=== PATIENT | female | born 1945 | race Caucasian/White ===

== ENCOUNTER 2016-06-23 08:44 | Emergency (ER) | payer MEDICARE, OTHER ==
--- NOTE | 2016-06-23 09:50 | ER Document Report ---
ED Extremity Problem, Lower - General Chief Complaint: Foot Pain Stated Complaint: FOOT PAIN Notes: Patient is here primarily complaining of pain in her right foot and ankle for 2 days. She recalls no unusual activity or injury to that foot and ankle and is not had this problem previously. Patient is morbidly obese, but is usually able to ambulate with her cane, but cannot do so now because the pain in her ankle and foot. Patient has chronic denuded wound of the entire left lower leg anteriorly which presents bandaged from the wound center from one week ago. She says that she attends the wound care clinic every Tuesday, but was given this Tuesday off. She has a home health nurse that comes in to check on her Tuesday, Tuesday, and Tuesday. She was last there this Tuesday, 2 days ago. Patient has been on Cipro, she thinks for 10 days, for the wound on her left lower leg and finished taking it about 2 or 3 days ago. Patient does say that she has a vaginal yeast infection. PMH: Patient denies any cough or cold or chest congestion. Has chronic shortness of breath, but nothing new or different today. No nausea or vomiting or diarrhea. No chest pains. No abdominal pains. History of Hypertension, but she forgets to take her medications sometimes. TRAVEL OUTSIDE OF THE [place] IN LAST 30 DAYS: No - Related Data Allergies/Adverse Reactions: adhesive [Adhesive] Allergy (Verified 06/23/16 09:02) No Known Drug Allergies Allergy (Verified 06/23/16 10:24) Past Medical History - Social History Smoking Status: Never Smoker Chew tobacco use (# tins/day): No Frequency of alcohol use: None Drug Abuse: None Family History: Reviewed & Not Pertinent Patient has suicidal ideation: No Patient has homicidal ideation: No - Past Medical History Cardiac Medical History: Reports: Hx Hypertension, Hx Peripheral Vascular Disease Endocrine Medical History: Reports: Hx Diabetes Mellitus Type 2 Musculoskeltal Medical History: Reports Hx Arthritis Past Surgical History: Reports: Hx Orthopedic Surgery - Immunizations Immunizations up to date: No Hx Diphtheria, Pertussis, Tetanus Vaccination: Yes Review of Systems - Review of Systems Notes: REVIEW OF SYSTEMS: CONSTITUTIONAL : Denies fever. EENT: Denies eye, ear, nose or mouth or throat pain or other symptoms. CARDIOVASCULAR: Denies chest pain. RESPIRATORY: Denies cough, chest congestion, or shortness of breath. GASTROINTESTINAL: Denies abdominal pain or nausea, vomiting, or diarrhea. GENITOURINARY: Denies difficulty or painful urinating, urinary frequency, blood in urine. MUSCULOSKELETAL: Denies back or neck pain. See history of present illness. SKIN: Complains of a vaginal yeast infection. NEUROLOGICAL: Denies LOC or altered mental status. Denies headache. Denies sensory loss or motor deficits. ALL OTHER SYSTEMS REVIEWED AND NEGATIVE. Physical Exam - Vital signs Vitals: Temp Pulse Resp BP Pulse Ox 97.7 F 81 20 170/82 H 94 06/23/16 08:58 06/23/16 08:58 06/23/16 08:58 06/23/16 08:58 06/23/16 08:58 Interpretation: Normal, Hypertensive - Mild - Notes Notes: PHYSICAL EXAMINATION: GENERAL: Well-appearing, in no acute distress. Blood pressure slightly increased. Patient says she forgets to take her medications sometimes. Afebrile. Weighs 199 kg. HEAD: Atraumatic, normocephalic. NECK: Normal range of motion, supple. LUNGS: Breath sounds clear and equal bilaterally. HEART: Regular rate and rhythm without murmurs. ABDOMEN: Soft, nontender. No guarding or rebound. Visualize the perineum and cannot tell if there is a yeast infection or not. Patient has been putting some kind of cream and powder combination on the area. BACK: No tenderness throughout entire back. EXTREMITIES: Normal range of motion without pain. Both lower legs are pink, although the left lower leg is in a bandage and it had to be removed to assess the wound there. Patient has significant tenderness when compressing her right ankle and the proximal right foot. They are warm to the touch but do not look like a significant infectious process. NEUROLOGICAL: Normal speech, unable to walk. Normal sensory, motor, and reflex exams. Awake, alert, and oriented x3. Cranial nerves normal. PSYCH: Normal mood, normal affect. SKIN: Warm, dry, no rashes. Course - Re-evaluation Re-evalutation: I spoke with Natalie at the wound care center. She says the patient has a Pseudomonas infection in the left lower leg and that's why she was on Cipro. She says the patient's legs are both pink in color normally. They can see patient in the clinic Tuesday (Dr. Mcmillan) if the patient will call in the morning and schedule an appointment. - Vital Signs Vital signs: Temp Pulse Resp BP Pulse Ox 97.5 F 79 20 167/61 H 98 06/23/16 12:28 06/23/16 12:28 06/23/16 12:28 06/23/16 12:28 06/23/16 12:28 - Laboratory Result Diagrams: 06/23/16 10:10 06/23/16 10:10 Laboratory results interpreted by me: 06/23/16 06/23/16 10:10 10:10 RDW 14.4 H Est GFR (Non-Af Amer) 52 L Glucose 140 H Uric Acid 9.4 H - Diagnostic Test Radiology results interpreted by me: 06/23/16 12:32 X-rays of the right foot and ankle reveal a healed fracture of the phalanx of the fifth toe. Otherwise no significant findings. Discharge - Discharge Clinical Impression: Gout attack Qualifiers: Gout site: ankle Gout etiology: unspecified cause Laterality: right Qualified Code(s): M10.9 - Gout, unspecified Condition: Stable Disposition: HOME, SELF-CARE Additional Instructions: Gout You have been diagnosed as having gout. Gout is a problem caused by an excess of uric acid, a natural chemical found in the body. The cause of this disease is unknown. Gout arthritis occurs when crystals of uric acid form in the joints. The big toe is the most common joint involved, but any joint can become affected. Persons with gout may also form uric acid kidney stones, resulting in flank pain and blood in the urine. Nodules of uric acid may form under the skin. The first step of treatment is to decrease the inflammation in the joint with antiinflammatory medication. Medication to lower the uric acid level in the blood may then be prescribed. This medication should be taken regularly, as any sudden change in dosage may provoke an attack of gout. Some foods, such as red meat, can provoke an attack in some gout sufferers. Call the doctor if new symptoms arise, or if you do not improve. Allopurinol Allopurinol (Zyloprim) is used to prevent gout and uric acid kidney stones. Allopurinol lowers uric acid in your body. It's most effective if taken daily. It's not useful to treat an attack of gout once it begins! There are usually no side effects from allopurinol. If you have any kidney disease, be sure your doctor knows about it before starting allopurinol ( you may need a lower dose). Stop the allopurinol and call your doctor if you develop severe itching, rash, unexplained blisters, unexplained bruises, jaundice (yellow skin), or swelling. STEROID MEDICATION: You have been given a medicine of the cortisone/steroid class. This medication is used to control inflammation or allergy. It is usually only given for a short period of time, until the acute process subsides. There are usually no side effects from short-term use of cortisone-like medications. Some persons feel an increased sense of well-being and are not sleepy at bedtime. Long-term use of cortisone medications is best avoided, unless required for a severe condition. If your condition does not remit, or relapses after the course of corticosteroid medication, you should consult your physician. Take your gabapentin and Percocets for pain. The [facility] Center says that Dr. Mcmillan will be there Tuesday and can see you in follow-up. You need to call the Wound Center today and schedule an appointment time for Dr. Mcmillan to see you Tuesday. FOLLOW-UP CARE: If you have been referred to a physician for follow-up care, call the physician s office for an appointment as you were instructed or within the next two days. If you experience worsening or a significant change in your symptoms, notify the physician immediately or return to the Emergency Department at any time for re-evaluation. You need to see her primary care physician in the next month to get a renewal of the allopurinol medication for the gout. Prescriptions: Allopurinol [Zyloprim 100 mg Tablet] 100 mg PO DAILY #30 tablet Prednisone [Deltasone 20 mg Tablet] 3 tab PO DAILY 5 Days Referrals: JULIO AVALOS MD [Primary Care Provider] - Follow up as needed
[2016-06-23 10:28] LABS: ABSOLUTE BASOPHILS # (AUTO) 0.1 10^3/uL (0.0-0.2); ABSOLUTE EOSINOPHILS # (AUTO) 0.2 10^3/uL (0.0-0.6); ABSOLUTE MONOCYTES (AUTO) 0.6 10^3/uL (0.1-1.4); ABSOLUTE NEUT (AUTO) 5.4 10^3/uL (1.7-8.2); BASOPHILS % (AUTO) 0.7 % (0-2); EOSINOPHILS % (AUTO) 2.2 % (0-6); HEMATOCRIT 37.5 % (36.0-47.0); HEMOGLOBIN 12.4 g/dL (12.0-15.5); HGB HCT DIFFERENCE -0.3; LYMPHOCYTES % (AUTO) 32.5 % (13-45); MEAN CORPUSCULAR HEMOGLOBIN 27.1 pg (27.0-33.4); MEAN CORPUSCULAR HGB CONC 33.1 g/dL (32.0-36.0); MEAN CORPUSCULAR VOLUME 82 fl (80-97); MONOCYTES % (AUTO) 6.2 % (3-13); RED BLOOD COUNT 4.57 10^6/uL (3.72-5.28); RED CELL DISTRIBUTION WIDTH 14.4 % (11.5-14.0); SEGMENTED NEUTROPHILS % (AUTO) 58.4 % (42-78); WHITE BLOOD COUNT 9.2 10^3/uL (4.0-10.5)
[2016-06-23 10:43] LABS: ALANINE AMINOTRANSFERASE 21 U/L (9-52); ALBUMIN 3.8 g/dL (3.5-5.0); ALKALINE PHOSPHATASE 88 U/L (38-126); ANION GAP 11 (5-19); ASPARTATE AMINO TRANSFERASE 16 U/L (14-36); BILIRUBIN,TOTAL 0.4 mg/dL (0.2-1.3); BLOOD UREA NITROGEN 20 mg/dL (7-20); CALCIUM 9.2 mg/dL (8.4-10.2); CARBON DIOXIDE 27 mmol/L (22-30); CHLORIDE 102 mmol/L (98-107); CREATININE RESULT 1.05 mg/dL (0.52-1.25); GLUCOSE 140 mg/dL (75-110); POTASSIUM 4.6 mmol/L (3.6-5.0); SODIUM 139.8 mmol/L (137-145); TOTAL PROTEIN 7.4 g/dL (6.3-8.2); URIC ACID 9.4 mg/dL (2.5-7.5)
[2016-06-23] MEDS ORDERED: ALLOPURINOL 100 MG TABLET PO ONE (12:04)
[2016-06-23] MEDS ORDERED: PREDNISONE 20 MG TABLET PO ONE (12:05)
[2016-06-23 12:30] VITALS: BP 167/61
== END 2016-06-23 12:40 | disposition home or self-care (01) ==
LOC: ER 08:44
DX: M10.9 Gout, unspecified (principal); M79.671 Pain in right foot; E66.01 Morbid (severe) obesity due to excess calories; I10 Essential (primary) hypertension; E11.9 Type 2 diabetes mellitus without complications
CPT/HCPCS: 99283; 36415; 84550; 85025; 80053; 73610; 73630; A9270 ×2; J7512

== ENCOUNTER 2016-08-11 13:03 | Inpatient (IN) | payer MEDICARE, OTHER ==
[2016-08-11] MEDS ORDERED: VANCOMYCIN HCL 0 MG in DEXTROSE 5%-WATER 250 ML IV NR (18:00)
[2016-08-11] MEDS ORDERED: MORPHINE SULFATE 10 MG/ML INJ ONE (18:00)
[2016-08-11] MEDS ORDERED: HYDRALAZINE HCL INJ/PF 20 MG/1 ML SDV IV PRN (18:11)
[2016-08-11] MEDS: GABAPENTIN 300 MG CAPSULE PO PRN (18:59)
[2016-08-11 19:07] LABS: ABSOLUTE BASOPHILS # (AUTO) 0.1 10^3/uL (0.0-0.2); ABSOLUTE EOSINOPHILS # (AUTO) 0.3 10^3/uL (0.0-0.6); ABSOLUTE LYMPHOCYTES (AUTO) 4.1 10^3/uL (0.5-4.7); ABSOLUTE MONOCYTES (AUTO) 0.8 10^3/uL (0.1-1.4); ABSOLUTE NEUT (AUTO) 5.7 10^3/uL (1.7-8.2); BASOPHILS % (AUTO) 0.8 % (0-2); EOSINOPHILS % (AUTO) 2.5 % (0-6); HEMATOCRIT 35.1 % (36.0-47.0); HEMOGLOBIN 11.7 g/dL (12.0-15.5); LYMPHOCYTES % (AUTO) 37.4 % (13-45); MEAN CORPUSCULAR HEMOGLOBIN 26.8 pg (27.0-33.4); MEAN CORPUSCULAR HGB CONC 33.3 g/dL (32.0-36.0); MEAN CORPUSCULAR VOLUME 81 fl (80-97); MONOCYTES % (AUTO) 7.5 % (3-13); RED BLOOD COUNT 4.36 10^6/uL (3.72-5.28); RED CELL DISTRIBUTION WIDTH 15.1 % (11.5-14.0); SEGMENTED NEUTROPHILS % (AUTO) 51.8 % (42-78); WHITE BLOOD COUNT 11.1 10^3/uL (4.0-10.5)
[2016-08-11 19:21] LABS: ANION GAP 13 (5-19); BLOOD UREA NITROGEN 21 mg/dL (7-20); CALCIUM 9.3 mg/dL (8.4-10.2); CARBON DIOXIDE 25 mmol/L (22-30); CHLORIDE 105 mmol/L (98-107); GLUCOSE 175 mg/dL (75-110); POTASSIUM 4.2 mmol/L (3.6-5.0); SODIUM 143.2 mmol/L (137-145)
--- NOTE | 2016-08-11 20:23 | CONSULTATION REPORT E ---
Consultation Report NAME: SERINA LEE : 1945 AGE: 70Y DATE: 08/11/2016 ROOM: 406 A TO: SHANNA BRUNO M.D. FROM: Requesting Physician REASON FOR CONSULTATION: The patient with large full thickness skin ulceration along the left lower leg of the ankle and just above the ankle with redness surrounding it, indicating cellulitis. HISTORY OF PRESENT ILLNESS: This is a 70-year-old female who has been treated at the [facility] for chronic ulceration of the left lower leg for the past 6 weeks. Today there is more redness and pain and therefore the patient went to the emergency room, subsequently admitted for cellulitis and ulceration of the left lower leg. Unable to obtain a detailed H and P, because the patient has severe pain along the left lower leg. PHYSICAL EXAMINATION: Left lower leg has a large full thickness skin ulceration, roughly measuring 10 inches long by about 6-7 inches wide, almost encircling the whole left ankle. The left foot is warm. There is some redness around the ulcer and towards the area of the knee. The patient is a borderline diabetic. As far as wound care is concerned I would suggest placement of Silvadene cream over the wound and wrap over Adaptic twice a day and continue with the IV antibiotic that was ordered, I believe it is Zosyn. We will follow the patient with you. DICTATING PHYSICIAN: SHANNA BRUNO M.D. [id number] PHY#: [id number] ID: [id number] JOB#: [id number] ACCT: [id number] cc:SHANNA BRUNO M.D. >
[2016-08-11] MEDS ORDERED: MORPHINE SULFATE 10 MG/ML INJ IV ONE (20:30)
--- NOTE | 2016-08-11 20:33 | CONSULTATION REPORT E ---
Consultation Report NAME: SERINA LEE : 1945 AGE: 70Y DATE: 406 A TO: SHANNA BRUNO M.D. FROM: Requesting Physician REASON FOR CONSULTATION: Patient with cellulitis of the left anterior lower leg with large full-thickness ulceration. HISTORY OF PRESENT ILLNESS: This is a 70-year-old female who apparently has been going to the wound care center and home healthcare *------* of the left lower leg ulceration and now with cellulitis. Today, the redness and pain got worse and the patient went to the emergency room and subsequently admitted for cellulitis of the left lower leg. PAST HISTORY: History of sleep apnea, musculoskeletal history of arthritis, history of fractures, osteoarthritis, fracture of tailbone and broken toe. GI history of gastroesophageal reflux disease. Genitourinary: History of kidney stones, urinary tract infection, urinary incontinence. Endocrine: History of diabetes mellitus type 2, but does not take any medications at this time. Cardiovascular history: Hypertension, murmur, and varicose veins. Respiratory history: History of bronchitis and chronic obstructive pulmonary disease. History of pneumonia. PAST SURGICAL HISTORY: Bilateral shoulder surgery, arthroscopy of shoulders bilaterally, arthroscopy of knees bilaterally, bilateral trigger thumb surgery, carpal tunnel both hands. HOME MEDICATIONS: Tramadol, gabapentin, vitamin D2. ALLERGIES: Adhesive. No known drug allergies. FAMILY HISTORY: Noncontributory. REVIEW OF SYSTEMS: As in HPI. Complaining of a lot of pains in the left leg. Patient has BMI of 63. She uses 2 canes to ambulate. The rest of the systems are quite unremarkable. PHYSICAL EXAMINATION: This is a 70-year-old female complaining of a lot of pains in the left lower leg. Weight is *------* kg and about 5 feet 5 inches tall. Neck is supple. Lungs are clear. Heart regular sinus rhythm. Abdomen soft, nontender. Extremities: She has large full-thickness skin ulceration of the left lower leg, roughly about 10 inches long x about 6-7 inches wide with a lot of erythema around it. The left foot is warm and quite difficult to palpate ankle pulses. IMPRESSION: 1. Cellulitis of the left lower leg. 2. Large full-thickness skin ulceration of the left lower leg. RECOMMENDATIONS: 1. Continue intravenous antibiotics. 2. Apply Silvadene dressing every 12 hours. Silvadene to be wrapped with Adaptic and ABD and wrapped with Ina. DICTATING PHYSICIAN: SHANNA BRUNO M.D. [id number] PHY#: [id number] ID: [id number] JOB#: [id number] ACCT: [id number] cc:SHANNA BRUNO M.D. >
[2016-08-11] MEDS ORDERED: ENOXAPARIN SODIUM INJ 40 MG/0.4 ML DISP.SYRIN SUBCUT ONE (21:00)
[2016-08-11] MEDS ORDERED: SILVER SULFADIAZINE 1% CREAM 400 GM TP ONE (21:00)
[2016-08-11] MEDS: TRAMADOL HCL 50 MG TABLET PO PRN (21:31)
[2016-08-11] MEDS: PIPERACILLIN SODIUM/TAZOBACTAM 3.375 GM in NORMAL SALINE 100 ML IV SCH (21:31)
[2016-08-11] MEDS: VANCOMYCIN HCL 1,500 MG in DEXTROSE 5%-WATER 250 ML IV SCH (21:56)
[2016-08-12] MEDS: PIPERACILLIN SODIUM/TAZOBACTAM 3.375 GM in NORMAL SALINE 100 ML IV SCH ×4 (03:33→22:32)
[2016-08-12 05:21] LABS: Direct HDL 31 mg/dL (>40); TRIGLYCERIDES 261 mg/dL (<150)
[2016-08-12 05:31] LABS: DIRECT LDL 100 mg/dL (<100)
[2016-08-12 05:38] LABS: VLDL CHOLESTEROL 52.2 mg/dL (10-31)
[2016-08-12] MEDS: MORPHINE SULFATE 10 MG/ML INJ IV PRN ×3 (06:31→20:52)
[2016-08-12] MEDS: ENOXAPARIN SODIUM INJ 40 MG/0.4 ML DISP.SYRIN SUBCUT SCH (10:58)
--- NOTE | 2016-08-12 11:37 | PDOC PROGRESS REPORT ---
Subjective Progress Note for:: 08/12/16 Subjective:: Still having leg pain. Physical Exam Vital Signs: Temp Pulse Resp BP Pulse Ox 97.4 F 75 22 H 150/85 H 96 08/12/16 09:00 08/12/16 09:00 08/12/16 09:00 08/12/16 09:00 08/12/16 09:00 Intake & Output 08/11/16 08/12/16 08/13/16 06:59 06:59 06:59 Intake Total 900 Balance 900 Weight 171.7 kg General appearance: PRESENT: no acute distress, cooperative Extremities exam: PRESENT: other - Anterior lower leg with diffuse ulceration bright red with surrounding erythema as well. No necrotic debris to debride at this time. Results Laboratory Results: 08/11/16 18:56 08/11/16 18:56 08/11/16 08/11/16 08/12/16 18:56 18:56 04:12 WBC 11.1 H RBC 4.36 Hgb 11.7 L Hct 35.1 L MCV 81 MCH 26.8 L MCHC 33.3 RDW 15.1 H Plt Count 264 Seg Neutrophils % 51.8 Lymphocytes % 37.4 Monocytes % 7.5 Eosinophils % 2.5 Basophils % 0.8 Absolute Neutrophils 5.7 Absolute Lymphocytes 4.1 Absolute Monocytes 0.8 Absolute Eosinophils 0.3 Absolute Basophils 0.1 Sodium 143.2 Potassium 4.2 Chloride 105 Carbon Dioxide 25 Anion Gap 13 BUN 21 H Creatinine 1.30 H Est GFR ( Amer) 49 L Est GFR (Non-Af Amer) 40 L Glucose 175 H Calcium 9.3 Triglycerides 261 H Cholesterol 197.10 LDL Cholesterol Direct 100 VLDL Cholesterol 52.2 H HDL Cholesterol 31 L TSH 08/12/16 04:12 WBC RBC Hgb Hct MCV MCH MCHC RDW Plt Count Seg Neutrophils % Lymphocytes % Monocytes % Eosinophils % Basophils % Absolute Neutrophils Absolute Lymphocytes Absolute Monocytes Absolute Eosinophils Absolute Basophils Sodium Potassium Chloride Carbon Dioxide Anion Gap BUN Creatinine Est GFR ( Amer) Est GFR (Non-Af Amer) Glucose Calcium Triglycerides Cholesterol LDL Cholesterol Direct VLDL Cholesterol HDL Cholesterol TSH 3.73 Impressions: Chest X-Ray 08/11/16 17:48 IMPRESSION: HEART ENLARGED WITHOUT FAILURE. NO OTHER SIGNIFICANT RADIOGRAPHIC FINDING IN THE CHEST. Assessment & Plan - Diagnosis (1) Venous stasis ulcer Is this a current diagnosis for this admission?: YesPlan: Continue local wound care and IV antibiotics. Need to elevate the leg higher. Have discussed with nursing staff concerning elevation.
[2016-08-12] MEDS: SILVER SULFADIAZINE 1% CREAM 400 GM TP SCH ×2 (12:12→20:51)
[2016-08-12] MEDS ORDERED: MORPHINE SULFATE 10 MG/ML INJ IV ONE (13:50)
--- NOTE | 2016-08-12 14:23 | EKG REPORT ---
SEVERITY:- BORDERLINE ECG - SINUS RHYTHM BORDERLINE LEFT AXIS DEVIATION BORDERLINE R WAVE PROGRESSION, ANTERIOR LEADS : Confirmed by: Grazyna Herrera 12-Aug-2016 14:22:41
--- NOTE | 2016-08-12 15:14 | PDOC H&P ---
History of Present Illness Admission Date/PCP: 08/11/16 15:12 JULIO AVALOS MD Patient complains of: Redness drainage both lower extremities History of Present Illness: SERINA LEE is a 70 year old female With a known history of borderline diabetes, obesity Was sent from the wound care clinic for direct admission of cellulitis lower extremities Patient stated that for the past months she had increased redness and drainage both legs She was in extreme pain Past Medical History Cardiac Medical History: Reports: Hypertension, Peripheral Vascular Disease Endocrine Medical History: Reports: Diabetes Mellitus Type 2 Musculoskeltal Medical History: Reports: Arthritis Psychiatric Medical History: Reports: Depression Past Surgical History Past Surgical History: Reports: Orthopedic Surgery Social History Smoking Status: Never Smoker Frequency of Alcohol Use: Rare Hx Recreational Drug Use: No Drugs: None Hx Prescription Drug Abuse: No - Advance Directive Resuscitation Status: Full Code Surrogate healthcare decision maker:: fam [place] Family History Family History: CAD, Malignancy Parental Family History Reviewed: Yes Children Family History Reviewed: Yes Sibling(s) Family History Reviewed.: Yes Medication/Allergy Home Medications: Ergocalciferol (Vitamin D2) [Vitamin D2] 50,000 unit PO MO 08/11/16 Gabapentin [Neurontin 300 mg Capsule] 300 mg PO Q8HP PRN 08/11/16 Tramadol HCl [Ultram 50 mg Tablet] 50 mg PO TID PRN 08/11/16 Allergies/Adverse Reactions: adhesive [Adhesive] Allergy (Verified 06/23/16 09:02) No Known Drug Allergies Allergy (Verified 06/23/16 10:24) Review of Systems Constitutional: ABSENT: chills, fever(s), headache(s), weight gain, weight loss Eyes: ABSENT: visual disturbances Ears: ABSENT: hearing changes Cardiovascular: ABSENT: chest pain, dyspnea on exertion, edema, orthropnea, palpitations Respiratory: ABSENT: cough, hemoptysis Gastrointestinal: ABSENT: abdominal pain, constipation, diarrhea, hematemesis, hematochezia, nausea, vomiting Genitourinary: ABSENT: dysuria, hematuria Musculoskeletal: ABSENT: joint swelling Integumentary: PRESENT: erythema, wounds - Superficial ulcerations both lower extremities almost like a second-degree burn With drainage Redness of the skin shins extending to the inner thighs, other Neurological: ABSENT: abnormal gait, abnormal speech, confusion, dizziness, focal weakness, syncope Psychiatric: ABSENT: anxiety, depression, homidical ideation, suicidal ideation Endocrine: ABSENT: cold intolerance, heat intolerance, polydipsia, polyuria Hematologic/Lymphatic: ABSENT: easy bleeding, easy bruising Physical Exam Vital Signs: Temp Pulse Resp BP Pulse Ox 97.4 F 69 22 H 143/73 H 97 08/12/16 13:00 08/12/16 13:00 08/12/16 13:00 08/12/16 13:00 08/12/16 13:00 Intake & Output 08/11/16 08/12/16 08/13/16 00:59 00:59 00:59 Intake Total 900 Balance 900 Weight 172.6 kg 171.7 kg General appearance: PRESENT: mild distress, morbidly obese Head exam: PRESENT: atraumatic, normocephalic Eye exam: PRESENT: conjunctiva pink, EOMI, PERRLA. ABSENT: scleral icterus Neck exam: ABSENT: carotid bruit, JVD, lymphadenopathy, thyromegaly Respiratory exam: PRESENT: clear to auscultation kurt. ABSENT: rales, rhonchi, wheezes Cardiovascular exam: PRESENT: RRR. ABSENT: diastolic murmur, rubs, systolic murmur GI/Abdominal exam: PRESENT: normal bowel sounds, soft, other - Obese. ABSENT: distended, guarding, mass, organolmegaly, rebound, tenderness Extremities exam: PRESENT: +2 edema, other - Both lower extremities are extremely edematous The shins are red and swollen There is a superficial ulceration with drainage over the legs With second-degree burn-like ulcer beginning the dermis without coverage Redness extends to the inner thigh is Musculoskeletal exam: PRESENT: ambulatory Neurological exam: PRESENT: alert - *And on palpation, awake, oriented to person , oriented to place, oriented to time, oriented to situation, CN II-XII grossly intact. ABSENT: motor sensory deficit Skin exam: PRESENT: other - see extremities Results Laboratory Results: 08/11/16 18:56 08/11/16 18:56 08/11/16 08/11/16 08/12/16 18:56 18:56 04:12 WBC 11.1 H RBC 4.36 Hgb 11.7 L Hct 35.1 L MCV 81 MCH 26.8 L MCHC 33.3 RDW 15.1 H Plt Count 264 Seg Neutrophils % 51.8 Lymphocytes % 37.4 Monocytes % 7.5 Eosinophils % 2.5 Basophils % 0.8 Absolute Neutrophils 5.7 Absolute Lymphocytes 4.1 Absolute Monocytes 0.8 Absolute Eosinophils 0.3 Absolute Basophils 0.1 Sodium 143.2 Potassium 4.2 Chloride 105 Carbon Dioxide 25 Anion Gap 13 BUN 21 H Creatinine 1.30 H Est GFR ( Amer) 49 L Est GFR (Non-Af Amer) 40 L Glucose 175 H Calcium 9.3 Triglycerides 261 H Cholesterol 197.10 LDL Cholesterol Direct 100 VLDL Cholesterol 52.2 H HDL Cholesterol 31 L TSH 08/12/16 04:12 WBC RBC Hgb Hct MCV MCH MCHC RDW Plt Count Seg Neutrophils % Lymphocytes % Monocytes % Eosinophils % Basophils % Absolute Neutrophils Absolute Lymphocytes Absolute Monocytes Absolute Eosinophils Absolute Basophils Sodium Potassium Chloride Carbon Dioxide Anion Gap BUN Creatinine Est GFR ( Amer) Est GFR (Non-Af Amer) Glucose Calcium Triglycerides Cholesterol LDL Cholesterol Direct VLDL Cholesterol HDL Cholesterol TSH 3.73 Impressions: Chest X-Ray 08/11/16 17:48 IMPRESSION: HEART ENLARGED WITHOUT FAILURE. NO OTHER SIGNIFICANT RADIOGRAPHIC FINDING IN THE CHEST. Assessment & Plan - Diagnosis (2) Cellulitis of lower extremity Qualifiers: Laterality: unspecified laterality Qualified Code(s): L03.119 - Cellulitis of unspecified part of limb Is this a current diagnosis for this admission?: YesPlan: we will treat with Zosyn and vancomycin Surgical consult will be obtained - Time Time Spent: 50 to 70 Minutes
--- NOTE | 2016-08-12 16:30 | PDOC PROGRESS REPORT ---
Subjective Progress Note for:: 08/12/16 Subjective:: Patient is a lot more comfortable today the pain is a lot less The wounds of the lower extremities are still draining The ulcers are now covered with Silvadene cream; she has no fever no chills Physical Exam Vital Signs: Temp Pulse Resp BP Pulse Ox 97.4 F 69 22 H 143/73 H 97 08/12/16 13:00 08/12/16 13:00 08/12/16 13:00 08/12/16 13:00 08/12/16 13:00 Intake & Output 08/11/16 08/12/16 08/13/16 00:59 00:59 00:59 Intake Total 900 Balance 900 Weight 172.6 kg 171.7 kg General appearance: PRESENT: mild distress, morbidly obese Head exam: PRESENT: atraumatic, normocephalic Eye exam: PRESENT: conjunctiva pink, EOMI, PERRLA. ABSENT: scleral icterus Neck exam: ABSENT: carotid bruit, JVD, lymphadenopathy, thyromegaly Respiratory exam: PRESENT: clear to auscultation kurt. ABSENT: rales, rhonchi, wheezes Pulses: PRESENT: normal dorsalis pedis pul GI/Abdominal exam: PRESENT: normal bowel sounds, soft. ABSENT: distended, guarding, mass, organolmegaly, rebound, tenderness Extremities exam: PRESENT: +2 edema - edema persistent with redness lower extremities Tenderness on palpation, other Musculoskeletal exam: PRESENT: full ROM Neurological exam: PRESENT: alert, awake, oriented to person, oriented to place , oriented to time, oriented to situation, CN II-XII grossly intact. ABSENT: motor sensory deficit Results Laboratory Results: 08/11/16 18:56 08/11/16 18:56 08/11/16 08/11/16 08/12/16 18:56 18:56 04:12 WBC 11.1 H RBC 4.36 Hgb 11.7 L Hct 35.1 L MCV 81 MCH 26.8 L MCHC 33.3 RDW 15.1 H Plt Count 264 Seg Neutrophils % 51.8 Lymphocytes % 37.4 Monocytes % 7.5 Eosinophils % 2.5 Basophils % 0.8 Absolute Neutrophils 5.7 Absolute Lymphocytes 4.1 Absolute Monocytes 0.8 Absolute Eosinophils 0.3 Absolute Basophils 0.1 Sodium 143.2 Potassium 4.2 Chloride 105 Carbon Dioxide 25 Anion Gap 13 BUN 21 H Creatinine 1.30 H Est GFR ( Amer) 49 L Est GFR (Non-Af Amer) 40 L Glucose 175 H Calcium 9.3 Triglycerides 261 H Cholesterol 197.10 LDL Cholesterol Direct 100 VLDL Cholesterol 52.2 H HDL Cholesterol 31 L TSH 08/12/16 04:12 WBC RBC Hgb Hct MCV MCH MCHC RDW Plt Count Seg Neutrophils % Lymphocytes % Monocytes % Eosinophils % Basophils % Absolute Neutrophils Absolute Lymphocytes Absolute Monocytes Absolute Eosinophils Absolute Basophils Sodium Potassium Chloride Carbon Dioxide Anion Gap BUN Creatinine Est GFR ( Amer) Est GFR (Non-Af Amer) Glucose Calcium Triglycerides Cholesterol LDL Cholesterol Direct VLDL Cholesterol HDL Cholesterol TSH 3.73 Impressions: Chest X-Ray 08/11/16 17:48 IMPRESSION: HEART ENLARGED WITHOUT FAILURE. NO OTHER SIGNIFICANT RADIOGRAPHIC FINDING IN THE CHEST. Assessment & Plan - Diagnosis (2) Cellulitis of lower extremity Qualifiers: Laterality: unspecified laterality Qualified Code(s): L03.119 - Cellulitis of unspecified part of limb Is this a current diagnosis for this admission?: Yes - Time Time Spent with patient: Continue present management Time Spent with patient: 25-34 minutes
[2016-08-12] MEDS: TRAMADOL HCL 50 MG TABLET PO PRN (22:31)
[2016-08-12] MEDS: VANCOMYCIN HCL 1,500 MG in DEXTROSE 5%-WATER 250 ML IV SCH (22:31)
[2016-08-13] MEDS: MORPHINE SULFATE 10 MG/ML INJ IV PRN ×4 (01:03→16:05)
[2016-08-13] MEDS: PIPERACILLIN SODIUM/TAZOBACTAM 3.375 GM in NORMAL SALINE 100 ML IV SCH ×4 (03:13→21:26)
[2016-08-13] MEDS: GABAPENTIN 300 MG CAPSULE PO PRN (03:13)
[2016-08-13 05:14] LABS: ABSOLUTE BASOPHILS # (AUTO) 0.1 10^3/uL (0.0-0.2); ABSOLUTE EOSINOPHILS # (AUTO) 0.3 10^3/uL (0.0-0.6); ABSOLUTE LYMPHOCYTES (AUTO) 4.1 10^3/uL (0.5-4.7); ABSOLUTE MONOCYTES (AUTO) 0.7 10^3/uL (0.1-1.4); ABSOLUTE NEUT (AUTO) 4.7 10^3/uL (1.7-8.2); BASOPHILS % (AUTO) 0.7 % (0-2); EOSINOPHILS % (AUTO) 3.3 % (0-6); HEMATOCRIT 37.2 % (36.0-47.0); HEMOGLOBIN 11.9 g/dL (12.0-15.5); HGB HCT DIFFERENCE -1.5; LYMPHOCYTES % (AUTO) 41.4 % (13-45); MEAN CORPUSCULAR HEMOGLOBIN 26.4 pg (27.0-33.4); MEAN CORPUSCULAR HGB CONC 31.9 g/dL (32.0-36.0); MEAN CORPUSCULAR VOLUME 83 fl (80-97); MONOCYTES % (AUTO) 7.1 % (3-13); SEGMENTED NEUTROPHILS % (AUTO) 47.5 % (42-78); WHITE BLOOD COUNT 9.8 10^3/uL (4.0-10.5)
[2016-08-13 06:32] LABS: ANION GAP 12 (5-19); BLOOD UREA NITROGEN 19 mg/dL (7-20); CARBON DIOXIDE 25 mmol/L (22-30); CHLORIDE 103 mmol/L (98-107); CREATININE RESULT 1.18 mg/dL (0.52-1.25); GLUCOSE 106 mg/dL (75-110); POTASSIUM 4.9 mmol/L (3.6-5.0); SODIUM 139.6 mmol/L (137-145)
--- NOTE | 2016-08-13 08:14 | PROGRESS NOTE E ---
Progress Note NAME: SERINA LEE : 1945 AGE: 70Y DATE: 08/13/2016 ROOM: 406 She remained afebrile and much less pain in the left leg. Left leg ulcer site has markedly diminished inflammation. She will be continued on b.i.d. Silvadene dressing. DICTATING PHYSICIAN: SHANNA BRUNO M.D. [id number] PHY#: [id number] ID: [id number] JOB#: [id number] ACCT: [id number] cc: >
[2016-08-13] MEDS: ENOXAPARIN SODIUM INJ 40 MG/0.4 ML DISP.SYRIN SUBCUT SCH (10:56)
--- NOTE | 2016-08-13 12:38 | XCELERA REPORT ---
[address] [address] Lower Extremity Venous Evaluation Name: SERINA LEE Age: 70 yrs Gender: Female : 1945 Patient Status: Inpatient Patient Location: [id number]\S\A Study Date: 08/13/2016 11:35 AM Procedure: Color flow and duplex imaging bilaterally of the veins of the lower extremities as well as the Common Femoral veins. Reason For Study: edema Ordering Physician: JESÚS RODRÍGUEZ Performed By: Ankita Ball Right Sided Venous Evaluation Normal vessel filling wall to wall, compression and augmentation as well as Colour flow down to the infrageniculate veins. Left Sided Venous Evaluation Study limited by bandaging, body habitus. Normal vessel filling wall to wall, compression and augmentation as well as Colour flow down to the infrageniculate veins. Interpretation Summary No duplex evidence of DVT or obstruction in the bilateral lower extremities. : JESÚS RODRÍGUEZ > Gentry Mcmillan
--- NOTE | 2016-08-13 15:59 | PDOC PROGRESS REPORT ---
Subjective Progress Note for:: 08/13/16 Subjective:: Feels better Less pain No fever no chills No lower extremities are not as red but still draining Physical Exam Vital Signs: Temp Pulse Resp BP Pulse Ox 98.0 F 73 20 150/75 H 94 08/13/16 07:23 08/13/16 07:23 08/13/16 07:23 08/13/16 07:23 08/13/16 07:23 Intake & Output 08/12/16 08/13/16 08/14/16 00:59 00:59 00:59 Intake Total 2016 Output Total 908 Balance 1108 Weight 172.6 kg 171.7 kg 172.2 kg General appearance: PRESENT: no acute distress, morbidly obese. ABSENT: well- nourished Head exam: PRESENT: atraumatic, normocephalic Eye exam: PRESENT: conjunctiva pink, EOMI, PERRLA. ABSENT: scleral icterus Ear exam: PRESENT: normal external ear exam Mouth exam: PRESENT: moist, tongue midline Neck exam: ABSENT: carotid bruit, JVD, lymphadenopathy, thyromegaly Respiratory exam: PRESENT: clear to auscultation kurt. ABSENT: rales, rhonchi, wheezes Cardiovascular exam: PRESENT: RRR. ABSENT: diastolic murmur, rubs, systolic murmur Pulses: PRESENT: normal dorsalis pedis pul Vascular exam: PRESENT: normal capillary refill GI/Abdominal exam: PRESENT: normal bowel sounds, soft. ABSENT: distended, guarding, mass, organolmegaly, rebound, tenderness Rectal exam: PRESENT: deferred Extremities exam: PRESENT: full ROM - She, tenderness, +2 edema, other - redness is decreasing. ABSENT: calf tenderness, clubbing, pedal edema Neurological exam: PRESENT: alert, awake, oriented to person, oriented to place , oriented to time, oriented to situation, CN II-XII grossly intact. ABSENT: motor sensory deficit Psychiatric exam: PRESENT: appropriate affect, normal mood. ABSENT: homicidal ideation, suicidal ideation Results Laboratory Results: 08/13/16 03:54 08/13/16 03:54 08/13/16 08/13/16 03:54 03:54 WBC 9.8 RBC 4.50 Hgb 11.9 L Hct 37.2 MCV 83 MCH 26.4 L MCHC 31.9 L RDW 15.0 H Plt Count 267 Seg Neutrophils % 47.5 Lymphocytes % 41.4 Monocytes % 7.1 Eosinophils % 3.3 Basophils % 0.7 Absolute Neutrophils 4.7 Absolute Lymphocytes 4.1 Absolute Monocytes 0.7 Absolute Eosinophils 0.3 Absolute Basophils 0.1 Sodium 139.6 Potassium 4.9 Chloride 103 Carbon Dioxide 25 Anion Gap 12 BUN 19 Creatinine 1.18 Est GFR ( Amer) 55 L Est GFR (Non-Af Amer) 45 L Glucose 106 Calcium 9.0 Impressions: Chest X-Ray 08/11/16 17:48 IMPRESSION: HEART ENLARGED WITHOUT FAILURE. NO OTHER SIGNIFICANT RADIOGRAPHIC FINDING IN THE CHEST. Assessment & Plan - Diagnosis (2) Cellulitis of lower extremity Qualifiers: Laterality: unspecified laterality Qualified Code(s): L03.119 - Cellulitis of unspecified part of limb Is this a current diagnosis for this admission?: YesPlan: Culture of the wound shows gram-positive cocci and gram-negative bacilli Continue Zosyn and Vanco Continue Silvadene dressings - Time Time Spent with patient: 25-34 minutes
[2016-08-13] MEDS ORDERED: AMLODIPINE BESYLATE 5 MG TABLET PO ONE (16:00)
[2016-08-13] MEDS: SILVER SULFADIAZINE 1% CREAM 400 GM TP SCH ×2 (16:06→17:15)
[2016-08-13] MEDS: TRAMADOL HCL 50 MG TABLET PO PRN (17:19)
[2016-08-13] MEDS: VANCOMYCIN HCL 1,500 MG in DEXTROSE 5%-WATER 250 ML IV SCH (22:41)
[2016-08-14] MEDS: MORPHINE SULFATE 10 MG/ML INJ IV PRN ×3 (02:08→13:32)
[2016-08-14] MEDS: TRAMADOL HCL 50 MG TABLET PO PRN ×2 (02:08→17:33)
[2016-08-14] MEDS: PIPERACILLIN SODIUM/TAZOBACTAM 3.375 GM in NORMAL SALINE 100 ML IV SCH ×4 (02:09→21:52)
[2016-08-14] MEDS: ENOXAPARIN SODIUM INJ 40 MG/0.4 ML DISP.SYRIN SUBCUT SCH (08:33)
[2016-08-14] MEDS ORDERED: AMLODIPINE BESYLATE 5 MG TABLET PO SCH (10:00)
[2016-08-14] MEDS ORDERED: PREDNISONE 20 MG TABLET PO ONE (11:00)
[2016-08-14] MEDS ORDERED: NYSTATIN TOPICAL POWDER 15 GM TP ONE (11:00)
--- NOTE | 2016-08-14 13:37 | PDOC PROGRESS REPORT ---
Subjective Progress Note for:: 08/14/16 Subjective:: Patient is complaining of severe pain right big toe " it feels like gout " no fever or chills improvement in pain right leg decreased redness and swelling Physical Exam Vital Signs: Temp Pulse Resp BP Pulse Ox 98.5 F 84 17 153/79 H 95 08/14/16 12:00 08/14/16 12:00 08/14/16 12:00 08/14/16 12:00 08/14/16 12:00 Intake & Output 08/13/16 08/14/16 08/15/16 00:59 00:59 00:59 Intake Total 2016 1000 562 Output Total 908 Balance 1108 1000 562 Weight 171.7 kg 172.2 kg 172.9 kg General appearance: PRESENT: no acute distress, morbidly obese Head exam: PRESENT: atraumatic, normocephalic Eye exam: PRESENT: conjunctiva pink, EOMI, PERRLA. ABSENT: scleral icterus Neck exam: ABSENT: carotid bruit, JVD, lymphadenopathy, thyromegaly Respiratory exam: PRESENT: clear to auscultation kurt. ABSENT: rales, rhonchi, wheezes Cardiovascular exam: PRESENT: RRR. ABSENT: diastolic murmur, rubs, systolic murmur GI/Abdominal exam: PRESENT: normal bowel sounds, soft. ABSENT: distended, guarding, mass, organolmegaly, rebound, tenderness Extremities exam: PRESENT: other - decreased redness lower extremities decreased drainage Results Laboratory Results: 08/13/16 03:54 08/13/16 03:54 Impressions: Chest X-Ray 08/11/16 17:48 IMPRESSION: HEART ENLARGED WITHOUT FAILURE. NO OTHER SIGNIFICANT RADIOGRAPHIC FINDING IN THE CHEST. Assessment & Plan - Diagnosis (2) Cellulitis of lower extremity Qualifiers: Laterality: unspecified laterality Qualified Code(s): L03.119 - Cellulitis of unspecified part of limb Is this a current diagnosis for this admission?: YesPlan: improving culture results pending continue radha (3) Diabetes Qualifiers: Diabetes mellitus type: type 2 Diabetes mellitus complication status: with unspecified complications Is this a current diagnosis for this admission?: YesPlan: start metformin 500 mg dailty discuss diabetic diet (4) Hypertension Qualifiers: Hypertension type: essential hypertension Qualified Code(s): I10 - Essential (primary) hypertension Is this a current diagnosis for this admission?: YesPlan: add norvasc and losartan to current meds (5) Hyperlipidemia Qualifiers: Hyperlipidemia type: unspecified Qualified Code(s): E78.5 - Hyperlipidemia, unspecified Is this a current diagnosis for this admission?: YesPlan: initiate lipitor 10 mg qHS - Time Time Spent with patient: 25-34 minutes
[2016-08-14] MEDS ORDERED: LOSARTAN POTASSIUM 50 MG TABLET PO ONE (14:00)
[2016-08-14] MEDS: SILVER SULFADIAZINE 1% CREAM 400 GM TP SCH (16:15)
[2016-08-14] MEDS ORDERED: MORPHINE SULFATE 10 MG/ML INJ ONE (16:19)
[2016-08-14] MEDS ORDERED: MORPHINE SULFATE 10 MG/ML INJ IV ONE (16:30)
[2016-08-14 21:57] LABS: CREATININE RESULT 1.09 mg/dL (0.52-1.25)
[2016-08-14] MEDS: VANCOMYCIN HCL 1,500 MG in DEXTROSE 5%-WATER 250 ML IV SCH (22:52)
[2016-08-14] MEDS: NYSTATIN TOPICAL POWDER 15 GM TP SCH (22:52)
[2016-08-14] MEDS: ATORVASTATIN CALCIUM 10 MG TABLET PO SCH (22:53)
[2016-08-15] MEDS: SILVER SULFADIAZINE 1% CREAM 400 GM TP SCH ×2 (03:26→15:02)
[2016-08-15] MEDS: PIPERACILLIN SODIUM/TAZOBACTAM 3.375 GM in NORMAL SALINE 100 ML IV SCH ×2 (03:26→08:36)
[2016-08-15] MEDS: MORPHINE SULFATE 10 MG/ML INJ IV PRN ×2 (04:27→08:36)
[2016-08-15] MEDS: TRAMADOL HCL 50 MG TABLET PO PRN (04:27)
[2016-08-15] MEDS: ENOXAPARIN SODIUM INJ 40 MG/0.4 ML DISP.SYRIN SUBCUT SCH (08:36)
--- NOTE | 2016-08-15 09:28 | PDOC PROGRESS REPORT ---
Subjective Progress Note for:: 08/15/16 Subjective:: Patient is feeling a lot better ; cellulitis is resolving Pain still quite severe Discussed with patient need for her to go to short-term rehabilitation Physical Exam Vital Signs: Temp Pulse Resp BP Pulse Ox 97.7 F 90 21 H 157/90 H 90 L 08/14/16 23:36 08/14/16 23:36 08/14/16 23:36 08/14/16 23:36 08/14/16 23:36 Intake & Output 08/14/16 08/15/16 08/16/16 00:59 00:59 00:59 Intake Total 1000 1199 1062 Output Total 600 Balance 1000 1199 462 Weight 172.2 kg 172.9 kg 167.9 kg General appearance: PRESENT: no acute distress, morbidly obese Head exam: PRESENT: atraumatic, normocephalic Eye exam: PRESENT: conjunctiva pink, EOMI, PERRLA. ABSENT: scleral icterus Ear exam: PRESENT: normal external ear exam Mouth exam: PRESENT: moist, tongue midline Neck exam: ABSENT: carotid bruit, JVD, lymphadenopathy, thyromegaly Respiratory exam: PRESENT: clear to auscultation kurt. ABSENT: rales, rhonchi, wheezes Cardiovascular exam: PRESENT: RRR. ABSENT: diastolic murmur, rubs, systolic murmur Pulses: PRESENT: normal dorsalis pedis pul Vascular exam: PRESENT: normal capillary refill GI/Abdominal exam: PRESENT: normal bowel sounds, soft. ABSENT: distended, guarding, mass, organolmegaly, rebound, tenderness Rectal exam: PRESENT: deferred Extremities exam: PRESENT: full ROM, other - Redness left lower extremity has subsided The wound left stewart shows shallow ulceration with good granulation tissue. ABSENT: calf tenderness, clubbing, pedal edema Neurological exam: PRESENT: alert, awake, oriented to person, oriented to place , oriented to time, oriented to situation, CN II-XII grossly intact. ABSENT: motor sensory deficit Psychiatric exam: PRESENT: appropriate affect, normal mood. ABSENT: homicidal ideation, suicidal ideation Skin exam: PRESENT: dry, intact, warm. ABSENT: cyanosis, rash Results Laboratory Results: 08/13/16 03:54 08/14/16 21:10 08/14/16 21:10 Creatinine 1.09 Est GFR ( Amer) > 60 Est GFR (Non-Af Amer) 50 L Impressions: Chest X-Ray 08/11/16 17:48 IMPRESSION: HEART ENLARGED WITHOUT FAILURE. NO OTHER SIGNIFICANT RADIOGRAPHIC FINDING IN THE CHEST. Assessment & Plan - Diagnosis (2) Cellulitis of lower extremity Qualifiers: Laterality: unspecified laterality Qualified Code(s): L03.119 - Cellulitis of unspecified part of limb Is this a current diagnosis for this admission?: YesPlan: 08/11/16 19:50 Gram Stain - Preliminary Leg - Left Wound Culture - Preliminary Mrsa (Meth Resis Staph Aureus) Stenotrophomonas Maltophilia Gram Negative Rods#2 Discontinued vancomycin And initiated Bactrim DS 2 tablets by mouth 3 times a day Dosage was discussed with pharmacy Patient did not have any more IV access Discontinued Zosyn and initiated Levaquin pending identification and sensitivity of gram-negative (3) Diabetes Qualifiers: Diabetes mellitus type: type 2 Diabetes mellitus complication status: with unspecified complications Is this a current diagnosis for this admission?: Yes (4) Hypertension Qualifiers: Hypertension type: essential hypertension Qualified Code(s): I10 - Essential (primary) hypertension Is this a current diagnosis for this admission?: YesPlan: Continue Norvasc (5) Hyperlipidemia Qualifiers: Hyperlipidemia type: unspecified Qualified Code(s): E78.5 - Hyperlipidemia, unspecified Is this a current diagnosis for this admission?: Yes - Time Time Spent with patient: We will discuss short-term rehabilitation with [facility] in a.m. Time Spent with patient: 25-34 minutes
[2016-08-15] MEDS ORDERED: AMLODIPINE BESYLATE 5 MG TABLET PO SCH ×2 (10:00)
[2016-08-15] MEDS ORDERED: LEVOFLOXACIN 750 MG TABLET PO SCH (10:00)
[2016-08-15] MEDS ORDERED: SULFAMETHOXAZOLE/TRIMETHOPRIM 800-160 MG TABLET PO SCH (10:00)
[2016-08-15] MEDS ORDERED: LOSARTAN POTASSIUM 50 MG TABLET PO SCH (10:00)
[2016-08-15] MEDS ORDERED: VANCOMYCIN HCL 1,000 MG in DEXTROSE 5%-WATER 250 ML IV SCH (11:00)
[2016-08-15] MEDS: PREDNISONE 20 MG TABLET PO SCH (11:19)
[2016-08-15] MEDS: METFORMIN HCL 500 MG TABLET PO SCH (11:19)
[2016-08-15] MEDS: NYSTATIN TOPICAL POWDER 15 GM TP SCH ×2 (11:20→22:00)
[2016-08-15] MEDS: AMLODIPINE BESYLATE 10 MG TABLET PO SCH (11:20)
[2016-08-15] MEDS: SULFAMETHOXAZOLE/TRIMETHOPRIM 800-160 MG TABLET PO SCH ×2 (14:04→22:00)
[2016-08-15] MEDS: OXYCODONE-ACETAMINOPHEN 5-325 MG TABLET PO PRN ×2 (15:01→23:48)
--- NOTE | 2016-08-15 15:58 | PROGRESS NOTE E ---
Progress Note NAME: SERINA LEE : 1945 AGE: 70Y DATE: ROOM: 406 The dressings on the left leg wound were then removed, together with the nurse. The wound was then gently irrigated with saline to remove some of the Silvadene. The erythema around the wound appears to have subsided. The wound itself does not have a lot of necrotic tissue, though on the posterior side there is a flap of skin. This was then debrided sharply. The wound itself is still quite tender, though a lot better compared to a few days ago. She will be continued on Silvadene dressing and IV antibiotics. She will need a followup at the wound care center when discharged. DICTATING PHYSICIAN: SHANNA BRUNO M.D. [id number] PHY#: [id number] ID: [id number] JOB#: [id number] ACCT: [id number] cc: >
--- NOTE | 2016-08-15 15:59 | OPERATIVE REPORT E ---
Operative Report NAME: SERINA LEE : 1945 AGE: 70Y DATE OF SURGERY: 08/15/2016 ROOM: 406 PREOPERATIVE DIAGNOSIS: Large wound on the left lower leg, anterior aspect, roughly about 10 cm long by about 8 cm wide. There are some superficial areas of necrosis on the skin layer. On the posterolateral aspect of the wound, there is necrotic skin that was then debrided. The area of skin roughly measured about 1.5 cm attached to the normal skin, and this was sharply debrided. The rest of the wound was gently irrigated and to have another Silvadene dressing. The patient tolerated the procedure well. SURGEON: SHANNA BRUNO M.D. DICTATING PHYSICIAN: SHANNA BRUNO M.D. [id number] PHY#: [id number] ID: [id number] JOB#: [id number] ACCT: [id number] cc:SHANNA BRUNO M.D. >
[2016-08-15] MEDS: ATORVASTATIN CALCIUM 10 MG TABLET PO SCH (22:00)
[2016-08-16] MEDS: SULFAMETHOXAZOLE/TRIMETHOPRIM 800-160 MG TABLET PO SCH ×3 (06:42→22:46)
[2016-08-16] MEDS: SILVER SULFADIAZINE 1% CREAM 400 GM TP SCH ×2 (06:42→18:01)
[2016-08-16] MEDS: OXYCODONE-ACETAMINOPHEN 5-325 MG TABLET PO PRN ×2 (07:58→18:00)
--- NOTE | 2016-08-16 09:05 | Progress Note ---
Provider Note Provider Note: Sensitivity for Pseudomonas is now available It is resistant to Levaquin We will discontinue Levaquin and initiate cefepime 1 g IV piggyback every 12 A PICC line will be inserted Patient will need to go to a SNF it with IV antibiotics for about 2 weeks
--- NOTE | 2016-08-16 09:17 | PDOC PROGRESS REPORT ---
Subjective Progress Note for:: 08/16/16 Subjective:: Patient in general is feeling better she somewhat depressed The left lower extremity still very red and less drainage Superficial ulceration on the stewart is slowly improving Patient had 3 bacteria isolated from the wound 08/11/16 19:50 Gram Stain - Final Leg - Left Wound Culture - Final Mrsa (Meth Resis Staph Aureus) Stenotrophomonas Maltophilia Pseudomonas Aeruginosa MRSA staph and S maltophilia are sensitive to Bactrim Pseudomonas may be treated with cefepime IV The PICC line would be inserted today Patient has a plan to go to short-term rehabilitation and porter sample case is aware Physical Exam Vital Signs: Temp Pulse Resp BP Pulse Ox 98.3 F 80 20 151/71 H 96 08/15/16 16:00 08/15/16 16:00 08/15/16 16:00 08/15/16 16:00 08/15/16 16:00 Intake & Output 08/15/16 08/16/16 08/17/16 00:59 00:59 00:59 Intake Total 1199 2342 Output Total 2100 1200 Balance 1199 242 -1200 Weight 172.9 kg 167.9 kg 169 kg General appearance: PRESENT: no acute distress, morbidly obese Eye exam: PRESENT: conjunctiva pink, EOMI, PERRLA. ABSENT: scleral icterus Mouth exam: PRESENT: moist, tongue midline Neck exam: ABSENT: carotid bruit, JVD, lymphadenopathy, thyromegaly Respiratory exam: PRESENT: clear to auscultation kurt. ABSENT: rales, rhonchi, wheezes Cardiovascular exam: PRESENT: RRR. ABSENT: diastolic murmur, rubs, systolic murmur Pulses: PRESENT: normal dorsalis pedis pul GI/Abdominal exam: PRESENT: normal bowel sounds, soft. ABSENT: distended, guarding, mass, organolmegaly, rebound, tenderness Extremities exam: PRESENT: other - Left lower extremity erythema still persistent; skin warm to touch The ulceration is improving with good granulation tissue and less drainage Results Laboratory Results: 08/13/16 03:54 08/14/16 21:10 08/11/16 19:50 Leg - Left Gram Stain - Final 08/11/16 19:50 Leg - Left Wound Culture - Final Mrsa (Meth Resis Staph Aureus) Stenotrophomonas Maltophilia Pseudomonas Aeruginosa Impressions: Chest X-Ray 08/11/16 17:48 IMPRESSION: HEART ENLARGED WITHOUT FAILURE. NO OTHER SIGNIFICANT RADIOGRAPHIC FINDING IN THE CHEST. Assessment & Plan - Diagnosis (1) Cellulitis of lower extremity Qualifiers: Laterality: unspecified laterality Qualified Code(s): L03.119 - Cellulitis of unspecified part of limb Is this a current diagnosis for this admission?: YesPlan: Continue present management Patient is currently on Bactrim DS 2 tabs 3 times a day and cefepime IV Treatment to be continued about 2 weeks after discharge (2) Diabetes Qualifiers: Diabetes mellitus type: type 2 Diabetes mellitus complication status: with unspecified complications Is this a current diagnosis for this admission?: YesPlan: well controlled Continue present management (3) Hypertension Qualifiers: Hypertension type: essential hypertension Qualified Code(s): I10 - Essential (primary) hypertension Is this a current diagnosis for this admission?: YesPlan: Controlled (4) Hyperlipidemia Qualifiers: Hyperlipidemia type: unspecified Qualified Code(s): E78.5 - Hyperlipidemia, unspecified Is this a current diagnosis for this admission?: Yes (5) Morbid obesity with BMI of 50.0-59.9, adult Is this a current diagnosis for this admission?: YesPlan: Discussed with patient importance of weight loss program and increase physical activity Patient states she already lost 40 pounds and is aware that if she increases her morbidity she may be able to go home (6) Gouty arthritis Is this a current diagnosis for this admission?: YesPlan: Patient had an acute gouty attack with severe pain in the left big toe She is receiving prednisone 60 mg daily for 3 days which should be discontinued tomorrow The pain resolved completely We will obtain a uric acid level Colchicine 0.6 mg daily will be added to the list of her medications-noted patient has a normal renal function - Time Time Spent with patient: Continue the present management Discharge patient within 24-48 hrs. when she is clinically improved Time Spent with patient: 25-34 minutes
[2016-08-16] MEDS: ENOXAPARIN SODIUM INJ 40 MG/0.4 ML DISP.SYRIN SUBCUT SCH (10:18)
[2016-08-16] MEDS: AMLODIPINE BESYLATE 10 MG TABLET PO SCH (10:39)
[2016-08-16] MEDS: PREDNISONE 20 MG TABLET PO SCH (10:39)
[2016-08-16] MEDS: COLCHICINE 0.6 MG TABLET PO SCH (10:39)
[2016-08-16] MEDS: NYSTATIN TOPICAL POWDER 15 GM TP SCH ×2 (10:40→23:01)
[2016-08-16] MEDS: CEFEPIME 1 GM/D5W RTU 50 ML IV SCH ×2 (10:40→22:46)
[2016-08-16] MEDS: METFORMIN HCL 500 MG TABLET PO SCH (10:40)
[2016-08-16] MEDS: ATORVASTATIN CALCIUM 10 MG TABLET PO SCH (23:02)
[2016-08-17] MEDS: OXYCODONE-ACETAMINOPHEN 5-325 MG TABLET PO PRN ×3 (00:21→22:55)
[2016-08-17] MEDS: TRAMADOL HCL 50 MG TABLET PO PRN ×2 (01:46→20:30)
[2016-08-17] MEDS: SULFAMETHOXAZOLE/TRIMETHOPRIM 800-160 MG TABLET PO SCH ×3 (06:15→22:57)
[2016-08-17] MEDS: SILVER SULFADIAZINE 1% CREAM 400 GM TP SCH ×2 (09:00→15:09)
[2016-08-17] MEDS: COLCHICINE 0.6 MG TABLET PO SCH (10:41)
[2016-08-17] MEDS: METFORMIN HCL 500 MG TABLET PO SCH (10:41)
[2016-08-17] MEDS: AMLODIPINE BESYLATE 10 MG TABLET PO SCH (10:41)
[2016-08-17] MEDS: PREDNISONE 20 MG TABLET PO SCH (10:41)
[2016-08-17] MEDS: CEFEPIME 1 GM/D5W RTU 50 ML IV SCH ×2 (10:42→22:55)
[2016-08-17] MEDS: NYSTATIN TOPICAL POWDER 15 GM TP SCH ×2 (10:45→22:57)
[2016-08-17] MEDS ORDERED: NORMAL SALINE 10 ML SDV (AFTER EACH USE) IV PRN (12:06)
[2016-08-17] MEDS: LORAZEPAM 1 MG TABLET PO PRN ×2 (15:08→22:56)
--- NOTE | 2016-08-17 18:52 | PDOC PROGRESS REPORT ---
Subjective Progress Note for:: 08/17/16 Subjective:: Patient complains of anxiety. Otherwise she has no new complaints. Patient denies fever, chills, headache, new focal weakness, chest pain, shortness of breath, abdominal pain, nausea, vomiting, diarrhea, constipation. Physical Exam Vital Signs: Temp Pulse Resp BP Pulse Ox 98.1 F 80 18 177/77 H 93 08/17/16 15:35 08/17/16 15:35 08/17/16 15:35 08/17/16 15:35 08/17/16 15:35 Intake & Output 08/16/16 08/17/16 08/18/16 06:59 06:59 06:59 Intake Total 1280 1330 1400 Output Total 2700 1850 600 Balance -1420 -520 800 Weight 169 kg 168.9 kg GENERAL: No acute distress, morbidly obese HEENT: Conjunctiva clear, nonicteric, moist mucous membranes, no JVD, midline trachea RESPIRATORY: Clear to auscultation bilaterally, no wheezes, no rhonchi CARDIAC: Regular rate and rhythm, no murmurs/gallops/rubs ABDOMEN: Soft, nondistended, nontender, positive bowel sounds, no rebound, no guarding EXTREMETIES: Edema/erythema bilateral lower extremities (left greater than right ) NEUROLOGIC: Alert, oriented to person/place/time, CN's grossly intact, no focal deficits SKIN: No rash, wounds PSYCH: Normal mood, normal affect Results Laboratory Results: 08/13/16 03:54 08/14/16 21:10 08/11/16 19:42 Blood Blood Culture - Final NO GROWTH IN 5 DAYS 08/11/16 18:56 Blood Blood Culture - Final NO GROWTH IN 5 DAYS Impressions: Chest X-Ray 08/11/16 17:48 IMPRESSION: HEART ENLARGED WITHOUT FAILURE. NO OTHER SIGNIFICANT RADIOGRAPHIC FINDING IN THE CHEST. Guidance Fluoroscopy 08/16/16 00:00 IMPRESSION: SUCCESSFUL PLACEMENT OF A 5 FR DUAL LUMEN 45 CM PICC IN THE right basilic VEIN. Interventional Vascular Procedure 08/16/16 00:00 IMPRESSION: SUCCESSFUL PLACEMENT OF A 5 FR DUAL LUMEN 45 CM PICC IN THE right basilic VEIN. PICC Line Insertion 08/16/16 09:03 IMPRESSION: SUCCESSFUL PLACEMENT OF A 5 FR DUAL LUMEN 45 CM PICC IN THE right basilic VEIN. Assessment & Plan - Diagnosis (1) Cellulitis of lower extremity Qualifiers: Laterality: unspecified laterality Qualified Code(s): L03.119 - Cellulitis of unspecified part of limb Is this a current diagnosis for this admission?: YesPlan: Continue Bactrim. Continue IV cefepime via PICC line until 08/27/2016. Patient has been off her at [facility] will be discharged there in the morning. (2) Diabetes Qualifiers: Diabetes mellitus type: type 2 Diabetes mellitus complication status: with unspecified complications Is this a current diagnosis for this admission?: Yes (3) Gouty arthritis Is this a current diagnosis for this admission?: Yes (4) Hyperlipidemia Qualifiers: Hyperlipidemia type: unspecified Qualified Code(s): E78.5 - Hyperlipidemia, unspecified Is this a current diagnosis for this admission?: Yes (5) Hypertension Qualifiers: Hypertension type: essential hypertension Qualified Code(s): I10 - Essential (primary) hypertension Is this a current diagnosis for this admission?: Yes (6) Morbid obesity with BMI of 50.0-59.9, adult Is this a current diagnosis for this admission?: Yes (7) Venous stasis ulcer Is this a current diagnosis for this admission?: Yes - Time Time Spent with patient: 25-34 minutes Anticipated discharge: SNF Within: within 24 hours
--- NOTE | 2016-08-17 18:56 | PDOC TRANSFER SUMMARY ---
General - Admit/Disc Date/PCP Admission Date/Primary Care Provider: 08/11/16 15:12 JULIO AVALOS MD Discharge Date: 08/17/16 - Discharge Diagnosis (1) Cellulitis of lower extremity Is this a current diagnosis for this admission?: YesSummary: Patient was admitted for bilateral lower extremity cellulitis with left leg drainage growing MRSA/stenotrophomonas/Pseudomonas. Based on culture and susceptibility patient has been transitioned to oral Bactrim and IV cefepime. She will need to complete course until 08/27/2016. She has a PICC line placed. PICC line will need to be discontinued after final dose of IV antibiotics are administered. Patient will be going to [facility] for further rehabilitative and medical care. (2) Diabetes Is this a current diagnosis for this admission?: Yes (3) Gouty arthritis Is this a current diagnosis for this admission?: Yes (4) Hyperlipidemia Is this a current diagnosis for this admission?: Yes (5) Hypertension Is this a current diagnosis for this admission?: Yes (6) Morbid obesity with BMI of 50.0-59.9, adult Is this a current diagnosis for this admission?: Yes (7) Venous stasis ulcer Is this a current diagnosis for this admission?: Yes - Additional Information Resuscitation Status: Full Code Discharge Diet: Cardiac, Diabetic Discharge Activity: Activity As Tolerated Home Medications: Ergocalciferol (Vitamin D2) [Vitamin D2] 50,000 unit PO MO 08/11/16 Gabapentin [Neurontin 300 mg Capsule] 300 mg PO Q8HP PRN 08/11/16 Amlodipine Besylate [Norvasc 10 mg Tablet] 10 mg PO DAILY tablet 08/17/16 Atorvastatin Calcium [Lipitor 10 mg Tablet] 10 mg PO QHS tablet 08/17/16 Cefepime 1 gm/D5w RTU [Maxipime RTU 1 gm/D5w 50 ml Premix Bag] 50 ml IV Q12 10 Days 08/17/16 Enoxaparin Sodium [Lovenox Inj 40 mg/0.4 ml Disp.syrin] 40 mg SUBCUT QAM 14 Days 08/17/16 Heparin Sodium,Porcine [Heparin Flush 10 Unit/ml 5 ml Disp.syrg] 30 unit IV .AFTER EACH USE PRN disp.syrin 08/17/16 Heparin Sodium,Porcine [Heparin Flush 10 Unit/ml 5 ml Disp.syrg] 30 unit IV Q12 disp.syrin 08/17/16 Lorazepam [Ativan 1 mg Tablet] 1 mg PO Q8HP PRN #10 tablet 08/17/16 Metformin HCl 500 mg PO DAILY #30 tablet 08/17/16 Nystatin [Mycostatin Topical Powder 15 gm] 1 applic TP Q12 bottle 08/17/16 Oxycodone HCl/Acetaminophen [Percocet 5-325 mg Tablet] 2 tab PO Q4HP PRN #10 tablet 08/17/16 Silver Sulfadiazine [Silvadene 1% Cream 400 gm] 1 applic TP Q12@0400,1600 jar 08/17/16 Sulfamethoxazole/Trimethoprim [Septra-Ds 800-160 mg Tablet] 2 tab PO Q8 tablet 08/17/16 Tramadol HCl [Ultram 50 mg Tablet] 50 mg PO TID PRN #10 tablet 08/17/16 History of Present Illness Admission Date/PCP: 08/11/16 15:12 JULIO AVALOS MD Patient complains of: Leg pain History of Present Illness: SERINA LEE is a 70 year old female With a known history of borderline diabetes, obesity Was sent from the wound care clinic for direct admission of cellulitis lower extremities Patient stated that for the past months she had increased redness and drainage both legs She was in extreme pain Hospital Course Hospital Course: See above Physical Exam Vital Signs: Temp Pulse Resp BP Pulse Ox 98.1 F 80 18 177/77 H 93 08/17/16 15:35 08/17/16 15:35 08/17/16 15:35 08/17/16 15:35 08/17/16 15:35 Intake & Output 08/16/16 08/17/16 08/18/16 06:59 06:59 06:59 Intake Total 1280 1330 1400 Output Total 2700 1850 600 Balance -1420 -520 800 Weight 169 kg 168.9 kg GENERAL: No acute distress, morbidly obese HEENT: Conjunctiva clear, nonicteric, moist mucous membranes, no JVD, midline trachea RESPIRATORY: Clear to auscultation bilaterally, no wheezes, no rhonchi CARDIAC: Regular rate and rhythm, no murmurs/gallops/rubs ABDOMEN: Soft, nondistended, nontender, positive bowel sounds, no rebound, no guarding EXTREMETIES: Edema/erythema bilateral lower extremities (left greater than right ) NEUROLOGIC: Alert, oriented to person/place/time, CN's grossly intact, no focal deficits SKIN: No rash, wounds PSYCH: Normal mood, normal affect Results Laboratory Results: 08/13/16 03:54 08/14/16 21:10 08/11/16 19:42 Blood Blood Culture - Final NO GROWTH IN 5 DAYS 08/11/16 18:56 Blood Blood Culture - Final NO GROWTH IN 5 DAYS 08/11/16 19:50 Gram Stain - Final Leg - Left Wound Culture - Final Mrsa (Meth Resis Staph Aureus) Stenotrophomonas Maltophilia Pseudomonas Aeruginosa Impressions: Chest X-Ray 08/11/16 17:48 IMPRESSION: HEART ENLARGED WITHOUT FAILURE. NO OTHER SIGNIFICANT RADIOGRAPHIC FINDING IN THE CHEST. Guidance Fluoroscopy 08/16/16 00:00 IMPRESSION: SUCCESSFUL PLACEMENT OF A 5 FR DUAL LUMEN 45 CM PICC IN THE right basilic VEIN. Interventional Vascular Procedure 08/16/16 00:00 IMPRESSION: SUCCESSFUL PLACEMENT OF A 5 FR DUAL LUMEN 45 CM PICC IN THE right basilic VEIN. PICC Line Insertion 08/16/16 09:03 IMPRESSION: SUCCESSFUL PLACEMENT OF A 5 FR DUAL LUMEN 45 CM PICC IN THE right basilic VEIN. Transfer Plan - Time Spent with Patient Time spent with patient: Greater than 30 Minutes Qualifiers PATEINT BEING DISCHARGED WITH ANY OF THE FOLLOWING DIAGNOSIS?: No
[2016-08-17] MEDS: ATORVASTATIN CALCIUM 10 MG TABLET PO SCH (22:56)
[2016-08-17] MEDS: NORMAL SALINE 10 ML SDV (SCHEDULED) IV SCH (22:57)
[2016-08-18] MEDS: LORAZEPAM 1 MG TABLET PO PRN (06:11)
[2016-08-18] MEDS: OXYCODONE-ACETAMINOPHEN 5-325 MG TABLET PO PRN (06:11)
[2016-08-18] MEDS: SILVER SULFADIAZINE 1% CREAM 400 GM TP SCH (06:12)
[2016-08-18] MEDS: SULFAMETHOXAZOLE/TRIMETHOPRIM 800-160 MG TABLET PO SCH (06:12)
--- NOTE | 2016-08-18 07:41 | PDOC TRANSFER SUMMARY ---
General - Admit/Disc Date/PCP Admission Date/Primary Care Provider: 08/11/16 15:12 JULIO AVALOS MD Discharge Date: 08/18/16 - Discharge Diagnosis (1) Cellulitis of lower extremity Is this a current diagnosis for this admission?: YesSummary: Patient was admitted for bilateral lower extremity cellulitis with left leg drainage growing MRSA/stenotrophomonas/Pseudomonas. Based on culture and susceptibility patient has been transitioned to oral Bactrim and IV cefepime. She will need to complete course until 08/27/2016. She has a PICC line placed. PICC line will need to be discontinued after final dose of IV antibiotics are administered. Patient will be going to [facility] for further rehabilitative and medical care. (2) Diabetes Is this a current diagnosis for this admission?: Yes (3) Gouty arthritis Is this a current diagnosis for this admission?: Yes (4) Hyperlipidemia Is this a current diagnosis for this admission?: Yes (5) Hypertension Is this a current diagnosis for this admission?: YesSummary: Blood pressure was poorly controlled on Norvasc 10 mg daily. Lisinopril 10 mg daily and hydrochlorothiazide 25 mg daily have been added. (6) Morbid obesity with BMI of 50.0-59.9, adult Is this a current diagnosis for this admission?: Yes (7) Venous stasis ulcer Is this a current diagnosis for this admission?: YesSummary: Patient is to continue having Silvadene dressing changes daily. Will add hydrochlorothiazide for mild diuresis. - Additional Information Resuscitation Status: Full Code Discharge Diet: Cardiac, Diabetic Discharge Activity: Activity As Tolerated Home Medications: Ergocalciferol (Vitamin D2) [Vitamin D2] 50,000 unit PO MO 08/11/16 Gabapentin [Neurontin 300 mg Capsule] 300 mg PO Q8HP PRN 08/11/16 Amlodipine Besylate [Norvasc 10 mg Tablet] 10 mg PO DAILY tablet 08/17/16 Atorvastatin Calcium [Lipitor 10 mg Tablet] 10 mg PO QHS tablet 08/17/16 Cefepime 1 gm/D5w RTU [Maxipime RTU 1 gm/D5w 50 ml Premix Bag] 50 ml IV Q12 10 Days 08/17/16 Enoxaparin Sodium [Lovenox Inj 40 mg/0.4 ml Disp.syrin] 40 mg SUBCUT QAM 14 Days 08/17/16 Heparin Sodium,Porcine [Heparin Flush 10 Unit/ml 5 ml Disp.syrg] 30 unit IV .AFTER EACH USE PRN disp.syrin 08/17/16 Heparin Sodium,Porcine [Heparin Flush 10 Unit/ml 5 ml Disp.syrg] 30 unit IV Q12 disp.syrin 08/17/16 Lorazepam [Ativan 1 mg Tablet] 1 mg PO Q8HP PRN #10 tablet 08/17/16 Metformin HCl 500 mg PO DAILY #30 tablet 08/17/16 Nystatin [Mycostatin Topical Powder 15 gm] 1 applic TP Q12 bottle 08/17/16 Oxycodone HCl/Acetaminophen [Percocet 5-325 mg Tablet] 2 tab PO Q4HP PRN #10 tablet 08/17/16 Silver Sulfadiazine [Silvadene 1% Cream 400 gm] 1 applic TP Q12@0400,1600 jar 08/17/16 Sulfamethoxazole/Trimethoprim [Septra-Ds 800-160 mg Tablet] 2 tab PO Q8 tablet 08/17/16 Tramadol HCl [Ultram 50 mg Tablet] 50 mg PO TID PRN #10 tablet 08/17/16 Hydrochlorothiazide 25 mg PO DAILY #30 tablet 08/18/16 Lisinopril [Prinivil 10 mg Tablet] 10 mg PO DAILY tablet 08/18/16 History of Present Illness Admission Date/PCP: 08/11/16 15:12 JULIO AVALOS MD Patient complains of: Leg pain History of Present Illness: SERINA LEE is a 70 year old female With a known history of borderline diabetes, obesity Was sent from the wound care clinic for direct admission of cellulitis lower extremities Patient stated that for the past months she had increased redness and drainage both legs She was in extreme pain Hospital Course Hospital Course: See above Physical Exam Vital Signs: Temp Pulse Resp BP Pulse Ox 98.3 F 72 20 171/85 H 92 08/17/16 23:50 08/17/16 23:50 08/17/16 23:50 08/17/16 23:50 08/17/16 23:50 Intake & Output 08/17/16 08/18/16 08/19/16 06:59 06:59 06:59 Intake Total 1330 1720 Output Total 1850 600 Balance -520 1120 Weight 168.9 kg 165.4 kg GENERAL: No acute distress, morbidly obese HEENT: Conjunctiva clear, nonicteric, moist mucous membranes, no JVD, midline trachea RESPIRATORY: Clear to auscultation bilaterally, no wheezes, no rhonchi CARDIAC: Regular rate and rhythm, no murmurs/gallops/rubs ABDOMEN: Soft, nondistended, nontender, positive bowel sounds, no rebound, no guarding EXTREMETIES: Edema/erythema bilateral lower extremities (left greater than right ) NEUROLOGIC: Alert, oriented to person/place/time, CN's grossly intact, no focal deficits SKIN: No rash, wounds PSYCH: Normal mood, normal affect Results Laboratory Results: 08/13/16 03:54 08/14/16 21:10 Impressions: Chest X-Ray 08/11/16 17:48 IMPRESSION: HEART ENLARGED WITHOUT FAILURE. NO OTHER SIGNIFICANT RADIOGRAPHIC FINDING IN THE CHEST. Guidance Fluoroscopy 08/16/16 00:00 IMPRESSION: SUCCESSFUL PLACEMENT OF A 5 FR DUAL LUMEN 45 CM PICC IN THE right basilic VEIN. Interventional Vascular Procedure 08/16/16 00:00 IMPRESSION: SUCCESSFUL PLACEMENT OF A 5 FR DUAL LUMEN 45 CM PICC IN THE right basilic VEIN. PICC Line Insertion 08/16/16 09:03 IMPRESSION: SUCCESSFUL PLACEMENT OF A 5 FR DUAL LUMEN 45 CM PICC IN THE right basilic VEIN. Transfer Plan - Time Spent with Patient Time spent with patient: Greater than 30 Minutes Qualifiers PATEINT BEING DISCHARGED WITH ANY OF THE FOLLOWING DIAGNOSIS?: No
[2016-08-18] MEDS: TRAMADOL HCL 50 MG TABLET PO PRN (08:07)
[2016-08-18] MEDS ORDERED: LISINOPRIL 10 MG TABLET PO SCH (10:00)
[2016-08-18] MEDS ORDERED: HYDROCHLOROTHIAZIDE 25 MG TABLET PO SCH (10:00)
[2016-08-18] MEDS: METFORMIN HCL 500 MG TABLET PO SCH (10:47)
[2016-08-18] MEDS: COLCHICINE 0.6 MG TABLET PO SCH (10:47)
[2016-08-18] MEDS: AMLODIPINE BESYLATE 10 MG TABLET PO SCH (10:47)
[2016-08-18] MEDS: NYSTATIN TOPICAL POWDER 15 GM TP SCH (10:48)
[2016-08-18] MEDS: NORMAL SALINE 10 ML SDV (SCHEDULED) IV SCH (10:48)
[2016-08-18] MEDS: CEFEPIME 1 GM/D5W RTU 50 ML IV SCH (10:49)
[2016-08-18 12:41] VITALS: BP 151/93
== END 2016-08-18 14:27 | DRG 638 ==
LOC: 4N 13:03 → UNDOADMIN 13:03 → 4N 15:12
PROVIDERS: ADMIT Emergency Medicine; ATTEND Emergency Medicine
PROC: 0HDLXZZ Extraction of Left Lower Leg Skin, External Approach (ICD-10-PCS; principal; 2016-08-15)
PROC: 02HV33Z Insertion of Infusion Device into Superior Vena Cava, Percutaneous Approach (ICD-10-PCS; 2016-08-16)
PROC: B548ZZA Ultrasonography of Superior Vena Cava, Guidance (ICD-10-PCS; 2016-08-16)
PROC: B5181ZA Fluoroscopy of Superior Vena Cava using Low Osmolar Contrast, Guidance (ICD-10-PCS; 2016-08-16)
DX: E11.622 Type 2 diabetes mellitus with other skin ulcer (principal); L03.116 Cellulitis of left lower limb; L97.322 Non-pressure chronic ulcer of left ankle with fat layer exposed; L97.822 Non-pressure chronic ulcer of other part of left lower leg with fat layer exposed; Z68.43 Body mass index [BMI] 50.0-59.9, adult; L03.115 Cellulitis of right lower limb; E66.01 Morbid (severe) obesity due to excess calories; B95.62 Methicillin resistant Staphylococcus aureus infection as the cause of diseases classified elsewhere; I87.8 Other specified disorders of veins; B96.5 Pseudomonas (aeruginosa) (mallei) (pseudomallei) as the cause of diseases classified elsewhere; M10.9 Gout, unspecified; E11.51 Type 2 diabetes mellitus with diabetic peripheral angiopathy without gangrene; K21.9 Gastro-esophageal reflux disease without esophagitis; I10 Essential (primary) hypertension; E78.5 Hyperlipidemia, unspecified; M19.90 Unspecified osteoarthritis, unspecified site; F32.9 Major depressive disorder, single episode, unspecified; Z82.49 Family history of ischemic heart disease and other diseases of the circulatory system; Z80.9 Family history of malignant neoplasm, unspecified; Z87.81 Personal history of (healed) traumatic fracture; Z87.442 Personal history of urinary calculi
CPT/HCPCS: 36415; 36569; 71010; 76937; 77001; 80048; 80061; 80202; 82565; 82962; 83036; 84443; 85025; 87040; 87070; 87075; 87077; 87186; 87205; 93005; 93010; 93970; 94660; G8978-GP; G8979-GP; J0360; J0692; J1642; J1650; J2270; J2543; J3370; J3490; J7060; J7512

== ENCOUNTER 2016-09-17 19:11 | Inpatient (IN) | payer MEDICARE, OTHER ==
--- NOTE | 2016-09-17 19:46 | ER Document Report ---
ED Medical Screen (RME) - General Chief Complaint: Leg Pain Stated Complaint: NEEDING LEG DRESSING CHANGED Time Seen by Provider: 09/17/16 19:39 Mode of Arrival: Wheelchair Information source: Patient TRAVEL OUTSIDE OF THE [place] IN LAST 30 DAYS: No - HPI Onset: Other - CHRONIC, AT LEAST SINCE MID-JULY Onset/Duration: Gradual Context: Patient apparently has a recurrent problem with cellulitis in the left lower extremity. She was hospitalized for treatment of same on August 11, and on August 18 she was transferred to an inpatient rehab facility. She was discharged to home from rehab 1 week ago. Apparently the plan was to have visits by a nurse for bandage changes 3 times a week, but patient says she only received 1 home visit and bandage change, and that was 5 days ago. The discomfort and drainage have been getting worse since. Quality of pain: Burning Severity: Moderate Associated Symptoms: Other - FOUL-SMELLING DRAINAGE. denies: Chills, Fever Exacerbated by: Movement, Walking Relieved by: Denies Similar symptoms previously: Yes Recently seen / treated by doctor: No - Related Data Smoking: Non-smoker Frequency of alcohol use: None Drug Abuse: None Allergies/Adverse Reactions: adhesive [Adhesive] Allergy (Verified 06/23/16 09:02) No Known Drug Allergies Allergy (Verified 06/23/16 10:24) Past Medical History - General Information source: Patient - Social History Cigarette use (# per day): No Chew tobacco use (# tins/day): No Frequency of alcohol use: None Drug Abuse: None - Past Medical History Cardiac Medical History: Reports: Hx Hypertension, Hx Peripheral Vascular Disease Pulmonary Medical History: Reports: None EENT Medical History: Reports: None Neurological Medical History: Reports: None Endocrine Medical History: Reports: Hx Diabetes Mellitus Type 2 Renal/ Medical History: Reports: None. Denies: Hx Peritoneal Dialysis Malignancy Medical History: Reports: None GI Medical History: Reports: None Musculoskeltal Medical History: Reports Hx Arthritis Skin Medical History: Reports Hx Cellulitis, Reports Hx MRSA Psychiatric Medical History: Reports: Hx Depression Past Surgical History: Reports: Hx Orthopedic Surgery - Immunizations Immunizations up to date: No Hx Diphtheria, Pertussis, Tetanus Vaccination: Yes Review of Systems - Review of Systems Constitutional: denies: Chills, Fever EENT: No symptoms reported Cardiovascular: No symptoms reported Respiratory: No symptoms reported Gastrointestinal: No symptoms reported Genitourinary: No symptoms reported Female Genitourinary: Vaginal discharge Musculoskeletal: See HPI Skin: See HPI Neurological/Psychological: No symptoms reported Physical Exam - Vital signs Vitals: Temp Pulse Resp BP Pulse Ox 97.8 F 100 22 H 151/86 H 97 09/17/16 19:26 09/17/16 19:26 09/17/16 19:26 09/17/16 19:26 09/17/16 19:26 Interpretation: Hypertensive, Tachycardic, Tachypneic. No: Febrile - General General appearance: Appears well, Alert In distress: None - HEENT Head: Normocephalic Eyes: Normal Mouth/Lips: Normal Mucous membranes: Normal - Respiratory Respiratory status: No respiratory distress - Cardiovascular Rhythm: Regular - Abdominal Inspection: Morbidly Obese - Extremities General upper extremity: Normal inspection General lower extremity: No: Normal inspection - L. LEG (SEE BELOW) Calf: Tender, Other - AREA OF COMPLAINT BANDAGED, DRAINAGE SOAKING THRU BANDAGE - Psychological Associated symptoms: Normal affect, Normal mood - Skin Skin Temperature: Warm Skin Moisture: Dry Skin Color: Normal Skin Turgor: Elastic Course - Vital Signs Vital signs: Temp Pulse Resp BP Pulse Ox 97.8 F 100 22 H 151/86 H 97 09/17/16 19:26 09/17/16 19:26 09/17/16 19:26 09/17/16 19:26 09/17/16 19:26
[2016-09-17] MEDS ORDERED: HYDROMORPHONE HCL INJ/PF 2 MG/ML AMPULE IM ONE (20:35)
[2016-09-17 21:40] LABS: ABSOLUTE BASOPHILS # (AUTO) 0.1 10^3/uL (0.0-0.2); ABSOLUTE EOSINOPHILS # (AUTO) 0.2 10^3/uL (0.0-0.6); ABSOLUTE MONOCYTES (AUTO) 0.6 10^3/uL (0.1-1.4); ABSOLUTE NEUT (AUTO) 5.4 10^3/uL (1.7-8.2); BASOPHILS % (AUTO) 0.6 % (0-2); EOSINOPHILS % (AUTO) 2.2 % (0-6); HEMATOCRIT 36.9 % (36.0-47.0); HGB HCT DIFFERENCE -0.9; MEAN CORPUSCULAR HEMOGLOBIN 27.1 pg (27.0-33.4); MEAN CORPUSCULAR HGB CONC 32.5 g/dL (32.0-36.0); MEAN CORPUSCULAR VOLUME 84 fl (80-97); MONOCYTES % (AUTO) 5.9 % (3-13); RED BLOOD COUNT 4.42 10^6/uL (3.72-5.28); RED CELL DISTRIBUTION WIDTH 15.6 % (11.5-14.0); SEGMENTED NEUTROPHILS % (AUTO) 52.3 % (42-78); WHITE BLOOD COUNT 10.3 10^3/uL (4.0-10.5)
[2016-09-17 21:48] LABS: APPEARANCE,URINE CLOUDY; BILIRUBIN,URINE NEGATIVE (NEGATIVE); GLUCOSE, URINE NEGATIVE (NEGATIVE); KETONES,URINE NEGATIVE (NEGATIVE); LEUKOCYTE ESTERASE,URINE LARGE (NEGATIVE); NITRITE,URINE POSITIVE (NEGATIVE); PROTEIN,URINE 30 mg/dL (NEGATIVE); URINE SPECIFIC GRAVITY 1.015; UROBILINOGEN,URINE NEGATIVE mg/dL (<2.0)
[2016-09-17] MEDS ORDERED: CEFTRIAXONE 1 GM/D5W RTU 50 ML IV ONE (21:53)
[2016-09-17 21:55] LABS: ALANINE AMINOTRANSFERASE 24 U/L (9-52); ALBUMIN 3.7 g/dL (3.5-5.0); ALKALINE PHOSPHATASE 80 U/L (38-126); ANION GAP 10 (5-19); ASPARTATE AMINO TRANSFERASE 20 U/L (14-36); BILIRUBIN,DIRECT 0.4 mg/dL (0.0-0.4); BILIRUBIN,TOTAL 0.4 mg/dL (0.2-1.3); BLOOD UREA NITROGEN 27 mg/dL (7-20); CALCIUM 9.2 mg/dL (8.4-10.2); CARBON DIOXIDE 27 mmol/L (22-30); CHLORIDE 107 mmol/L (98-107); GLUCOSE 132 mg/dL (75-110); POTASSIUM 4.8 mmol/L (3.6-5.0); SODIUM 143.6 mmol/L (137-145); TOTAL PROTEIN 7.3 g/dL (6.3-8.2)
[2016-09-17] MEDS: NORMAL SALINE 1000 ML 1,000 ML IV PRN ×2 (22:22→23:27)
[2016-09-17] MEDS ORDERED: VANCOMYCIN HCL INJ 1000 MG VIAL IV ONE (23:43)
--- NOTE | 2016-09-17 23:43 | ER Document Report ---
ED General - General Chief Complaint: Leg Pain Stated Complaint: NEEDING LEG DRESSING CHANGED Time Seen by Provider: 09/17/16 19:39 Mode of Arrival: Wheelchair Information source: Patient Notes: 70-year-old female presents with complaints of drainage from her left leg cellulitis as well as burning when she urinates. Patient denies any fevers. Patient notes cellulitis with admitted 1 month ago and then patient was at a care facility where she was just discharged from last week. Patient notes continued drainage and severe pain TRAVEL OUTSIDE OF THE [place] IN LAST 30 DAYS: No - HPI Onset: Other Onset/Duration: Persistent Quality of pain: Achy Severity: Moderate Pain Level: 3 Associated symptoms: Other Exacerbated by: Denies Relieved by: Denies Similar symptoms previously: Yes Recently seen / treated by doctor: Yes - Related Data Allergies/Adverse Reactions: adhesive [Adhesive] Allergy (Verified 06/23/16 09:02) No Known Drug Allergies Allergy (Verified 06/23/16 10:24) Past Medical History - General Information source: Patient - Social History Smoking Status: Never Smoker Cigarette use (# per day): No Chew tobacco use (# tins/day): No Smoking Education Provided: No Frequency of alcohol use: None Drug Abuse: None Family History: CAD, Malignancy Patient has suicidal ideation: No Patient has homicidal ideation: No - Past Medical History Cardiac Medical History: Reports: Hx Hypertension, Hx Peripheral Vascular Disease Pulmonary Medical History: Reports: None EENT Medical History: Reports: None Neurological Medical History: Reports: None Endocrine Medical History: Reports: Hx Diabetes Mellitus Type 2 Renal/ Medical History: Reports: None. Denies: Hx Peritoneal Dialysis Malignancy Medical History: Reports: None GI Medical History: Reports: None Musculoskeltal Medical History: Reports Hx Arthritis Skin Medical History: Reports Hx Cellulitis, Reports Hx MRSA Psychiatric Medical History: Reports: Hx Depression Past Surgical History: Reports: Hx Orthopedic Surgery - Immunizations Immunizations up to date: No Hx Diphtheria, Pertussis, Tetanus Vaccination: Yes Review of Systems - Review of Systems Notes: REVIEW OF SYSTEMS: CONSTITUTIONAL : Denies fever, chills, or sweats. Denies recent illness. EENT: Denies eye, ear, throat, or mouth pain or symptoms. Denies nasal or sinus congestion or discharge. Denies throat, tongue, or mouth swelling or difficulty swallowing. CARDIOVASCULAR: Denies chest pain. Denies palpitations or racing or irregular heart beat. Denies ankle edema. RESPIRATORY: Denies cough, cold, or chest congestion. Denies shortness of breath, difficulty breathing, or wheezing. GASTROINTESTINAL: Denies abdominal pain or distention. Denies nausea, vomiting , or diarrhea. Denies blood in vomitus, stools, or per rectum. Denies black, tarry stools. Denies constipation. GENITOURINARY: Admits to burning on urination FEMALE GENITOURINARY: Denies vaginal bleeding, heavy or abnormal periods, irregular periods. Denies vaginal discharge or odor. MUSCULOSKELETAL: Admits to left leg pain SKIN: Admits to drainage from the left stewart HEMATOLOGIC : Denies easy bruising or bleeding. LYMPHATIC: Denies swollen, enlarged glands. NEUROLOGICAL: Denies confusion or altered mental status. Denies passing out or loss of consciousness. Denies dizziness or lightheadedness. Denies headache. Denies weakness or paralysis or loss of use of either side. Denies problems with gait or speech. Denies sensory loss, numbness, or tingling. Denies seizures. PSYCHIATRIC: Denies anxiety or stress. Denies depression, suicidal ideation, or homicidal ideation. ALL OTHER SYSTEMS REVIEWED AND NEGATIVE. Dictation was performed using [employer] voice recognition software PHYSICAL EXAMINATION: GENERAL: Well-appearing, well-nourished and in no acute distress. HEAD: Atraumatic, normocephalic. EYES: Pupils equal round and reactive to light, extraocular movements intact, conjunctiva are normal. ENT: Nares patent, oropharynx clear without exudates. Moist mucous membranes. NECK: Normal range of motion, supple without lymphadenopathy LUNGS: Breath sounds clear to auscultation bilaterally and equal. No wheezes rales or rhonchi. HEART: Regular rate and rhythm without murmurs ABDOMEN: Soft, nontender, nondistended abdomen. No guarding, no rebound. No masses appreciated. Female : deferred Musculoskeletal: Normal range of motion, no pitting or edema. No cyanosis. NEUROLOGICAL: Cranial nerves grossly intact. Normal speech, normal gait. Normal sensory, motor exams PSYCH: Normal mood, normal affect. SKIN: Foul drainage noted from the left stewart excoriated cellulitic Physical Exam - Vital signs Vitals: Temp Pulse Resp BP Pulse Ox 97.8 F 100 22 H 151/86 H 97 09/17/16 19:26 09/17/16 19:26 09/17/16 19:26 09/17/16 19:26 09/17/16 19:26 Course - Re-evaluation Re-evalutation: 09/17/16 23:46 On physical examination patient has obvious drainage from the left stewart. Otherwise the patient appears to have many chronic issues. Urinalysis is consistent with UTI. Patient was started on antibiotics for this. Patient attempt has been made to contact hospitalist at 10:14 PM Hospitalist is still with a critical patient at this time - Vital Signs Vital signs: Temp Pulse Resp BP Pulse Ox 97.8 F 100 22 H 151/86 H 97 09/17/16 19:26 09/17/16 19:26 09/17/16 19:26 09/17/16 19:26 09/17/16 19:26 - Laboratory Result Diagrams: 09/17/16 21:20 09/17/16 21:20 Laboratory results interpreted by me: 09/17/16 09/17/16 09/17/16 21:20 21:20 21:20 RDW 15.6 H BUN 27 H Est GFR ( Amer) 54 L Est GFR (Non-Af Amer) 44 L Glucose 132 H Urine Protein 30 H Urine Blood SMALL H Urine Nitrite POSITIVE H Ur Leukocyte Esterase LARGE H Discharge - Discharge Clinical Impression: Venous stasis ulcer Cellulitis of lower extremity Qualifiers: Laterality: unspecified laterality Qualified Code(s): L03.119 - Cellulitis of unspecified part of limb Diabetes Qualifiers: Diabetes mellitus type: type 2 Diabetes mellitus complication status: with unspecified complications Diabetes mellitus fdc insulin use: with fdc use Qualified Code(s): E11.8 - Type 2 diabetes mellitus with unspecified complications; 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
[2016-09-18] MEDS ORDERED: ACETAMINOPHEN 325 MG TABLET PO PRN (03:24)
[2016-09-18] MEDS: OXYCODONE HCL IR 5 MG TABLET PO PRN ×3 (03:34→18:50)
[2016-09-18] MEDS ORDERED: DEXTROSE 50%-WATER 25 GM/50 ML DISP.SYRIN IV PRN ×2 (04:08)
[2016-09-18] MEDS ORDERED: DEXTROSE 40% GEL 15 GM TUBE PO PRN ×2 (04:08)
[2016-09-18] MEDS ORDERED: INSULIN LISPRO 100 UNIT/ML 3 ML VIAL SUBCUT PRN (04:08)
[2016-09-18] MEDS ORDERED: GLUCAGON,HUMAN RECOMB 1 MG INJ IM PRN (04:08)
[2016-09-18] MEDS ORDERED: PHARMACY COMMUNICATION ORDER MC SCH (04:15)
[2016-09-18] MEDS ORDERED: VANCOMYCIN HCL 0 MG in DEXTROSE 5%-WATER 250 ML IV NR (04:15)
--- NOTE | 2016-09-18 04:32 | PDOC H&P ---
History of Present Illness Admission Date/PCP: 09/17/16 23:55 PCP Austen Diego Patient complains of: left leg painful wound History of Present Illness: SERINA LEE is a 70 year old morbidly obese female with underlying type 2 diabetes mellitus, admittedly noncompliant with her Metformin, along with underlying hypertension, anxiety and depression without suicidal ideation, arthritis, hyperlipidemia, recently discharged from our facility after stay for treatment of left lower extremity venous stasis ulcer, who presents to the emergency room for evaluation of above complaint. Patient has been discussed with emergency room physician who evaluated the patient. States the venous stasis ulcer on her left lower extremity started as a "red area" approximately a month ago. Denies trauma to the site. No fever or chills, nausea or vomiting. Mild dysuria. No diarrhea.. Hospitalized on our service 11 August - 18 August of this year, with discharge diagnoses including bilateral lower extremity cellulitis with left leg venous stasis ulcer growing MRSA and Pseudomonas along with a third organism. Discharged to [facility] with a PICC line, with completion of oral Bactrim and intravenous cefepime on August 27. PICC line removed at that time. Discharged from their facility 1 week ago. History and physical and discharge summary reviewed. Per patient, home health scheduled to come 3 times a week, but states have only come once in the last week. She presents today for dressing change, with complaints of significant increase in the sharp stinging and stabbing pain associated with the left lower extremity venous stasis ulcer. Throbbing at times. Particularly worsened with much of any ambulation, and certainly any contact with the area of involvement. Laboratory results are listed in [email or web address] and are reviewed. Social history/personal habits: . 3 children. Lives alone. Retired. No use of alcohol tobacco or illicit drugs. Allergies/adverse reactions are listed in [email or web address] and are reviewed. Home medications initially autopopulated into [employer] may not accurately reflect patient's true medications, dosages, and/or frequencies. location and measurement technician to reconcile medications. Unfortunately, patient not certain of all medications/dosages/frequencies. REVIEW OF SYSTEMS: Constitutional: No fever or chills. Eyes: Wears glasses ENT: No swallowing problems or complaints. Partial hearing loss. Pulmonary: No current complaints. Cardiovascular: No current complaints, including chest pain. Gastrointestinal: No current complaints, including nausea or vomiting. Skin: See history and present illness. Hematologic: Denies easy bruising. Neurologic: No current complaints, including numbness or tingling. Musculoskeletal: Joint pain from arthritis. See history and present illness. Psychiatric: Mild anxiety and depression, without suicidal or homicidal ideation. Endocrine: No current complaints, including polyuria. Genitourinary: Intermittent mild dysuria. PHYSICAL EXAMINATION: 5 feet 5 inches tall. 171.5 kg. BMI 62.9 kg/m.Temperature 97.9. Pulse 80 and regular. Blood pressure 157/80. Respirations are 21 and unlabored. 100% saturation on room air. Morbidly obese otherwise well-developed female appearing approximately her stated age. Mild distress with pain from her left lower extremity venous stasis ulcer. Otherwise, pleasant awake alert and cooperative. Mildly anxious, without agitation. Female floor nurse Mary is present. Skin is warm and dry. No grossly obvious evidence of rash in areas of skin examined. No subcutaneous nodules palpated. See comments under "extremities" below ENT: Hearing grossly normal to normal conversation. Tongue midline on protrusion pink and slightly tacky. Eyes: No scleral icterus. Pupils equal and reactive to light at 4 mm. [place] conjunctivae. Neck is supple and nontender to gentle active range of motion and palpation. Midline trachea. No palpable thyroid nodule mass enlargement or tenderness. Lymphatic: No palpable cervical or clavicular nodes. Neck and lymphatic exams limited by patient body habitus. Psychiatric: Reasonable insight into acute and chronic medical issues. Oriented to time location and why here. Lungs: Auscultation reveals clear and equal breath sounds bilaterally. No use of accessory respiratory muscles. Cardiovascular: Heart regular rate and rhythm, without gallop murmur or rub. No carotid or abdominal aortic bruits. Mild bilateral symmetric basically nonpitting ankle and pedal edema, perhaps slightly more noticeable on the left. Faintly palpable right dorsalis pedis pulse. Not sure I can detect dorsalis pedis and posterior tibial pulses on the left, but excellent capillary refill at her warm toes. Abdomen:soft morbidly obese nontender with positive bowel sounds. Unable to adequately evaluate abdomen for masses or organomegaly due to body habitus. Extremities: Feet are warm and dry. No calf tenderness per se to compression. No grossly obvious visual evidence of calf swelling. Gentle manipulation of lower extremities fails to reveal any obvious evidence of injury or instability to knees hips or ankles. Examination of the right lower extremity reveals approximately a 6-8 cm wide area of skin overlying her tibia with mild erythema warmth and tenderness. No crepitus fluctuance or expressible discharge. Examination of the left lower extremity reveals a fairly extensive venous stasis ulcer extending over the anterolateral aspect of the lower half of her lower left leg. Vaseline gauze dressing is in place and is left in place. Several centimeter area of mild surrounding cellulitis. Neurologic: Moves upper extremities grossly normally. Patellar reflex not checked due to patient request, noting chronic knee pain, without recent change. Absent Babinski. Light touch is intact at feet. Dorsiflexion and plantarflexion of feet 5 / 5 and symmetric. Past Medical History Cardiac Medical History: Reports: Hyperlipidema, Hypertension, Peripheral Vascular Disease Denies: Congestive Heart Failure, DVT, Myocardial Infarction, Pulmonary Embolism Pulmonary Medical History: Reports: Sleep Apnea Denies: Asthma, Chronic Obstructive Pulmonary Disease (COPD) EENT Medical History: Reports: Eyes - Glasses, Ears - Partial hearing loss Denies: Throat Neurological Medical History: Denies: Hemorrhagic CVA, Ischemic CVA, Seizures Endocrine Medical History: Reports: Diabetes Mellitus Type 2 Denies: Diabetes Mellitus Type 1, Hyperthyroidism, Hypothyroidism Renal/ Medical History: Reports: Other - Occasional urinary tract infection. Malignancy Medical History: Reports: None GI Medical History: Reports: Gastroesophageal Reflux Disease - Distant history of same; no recent symptoms. 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 Denies: Clostridium Difficile, Hepatitis B, Hepatitis C Past Surgical History Past Surgical History: Reports: Orthopedic Surgery Social History Information Source: Patient, Emergency Med Personnel, [facility] Records Lives with: Alone Smoking Status: Unknown if Ever Smoked Frequency of Alcohol Use: None Hx Recreational Drug Use: No Drugs: None Hx Prescription Drug Abuse: No - Advance Directive Resuscitation Status: Full Code Surrogate healthcare decision maker:: Her daughter Family History Family History: CAD, Malignancy Parental Family History Reviewed: Yes - Parents of old age. Children Family History Reviewed: Yes - Uncertain health status. Sibling(s) Family History Reviewed.: Yes - Brother . Medication/Allergy Home Medications: Celecoxib [Celebrex] 200 mg PO DAILY 09/18/16 Ergocalciferol (Vitamin D2) [Vitamin D2] 50,000 unit PO [id number] 09/18/16 Oxycodone HCl/Acetaminophen [Oxycodone-Acetaminophen 5-325] 1 tab PO Q6HP PRN RX: Amlodipine Besylate [Norvasc 10 mg Tablet] 10 mg PO DAILY 09/18/16 RX: Atorvastatin Calcium [Lipitor 10 mg Tablet] 10 mg PO QHS 09/18/16 RX: Gabapentin [Neurontin 300 mg Capsule] 300 mg PO Q8HP PRN 09/18/16 RX: Hydrochlorothiazide 25 mg PO DAILY 09/18/16 RX: Lisinopril [Prinivil 10 mg Tablet] 10 mg PO DAILY 09/18/16 RX: Lorazepam [Ativan 1 mg Tablet] 1 mg PO Q8HP PRN 09/18/16 RX: Metformin HCl [Glucophage] 500 mg PO DAILY 09/18/16 RX: Tramadol HCl [Ultram 50 mg Tablet] 50 mg PO Q8HP PRN 09/18/16 Allergies/Adverse Reactions: adhesive [Adhesive] Allergy (Verified 06/23/16 09:02) No Known Drug Allergies Allergy (Verified 06/23/16 10:24) Physical Exam Vital Signs: Temp Pulse Resp BP Pulse Ox 97.9 F 80 21 H 157/80 H 100 09/18/16 01:39 09/18/16 01:39 09/18/16 01:39 09/18/16 01:39 09/18/16 01:39 Intake & Output 09/17/16 09/18/16 09/19/16 00:59 00:59 00:59 Weight 171.5 kg Assessment & Plan - Diagnosis (1) Cellulitis of left leg Is this a current diagnosis for this admission?: YesPlan: Recent wound culture results reviewed. Cefepime and intravenous vancomycin. Pharmacy to assist with dosing. Surgery consult. I have strongly encouraged patient not to get out of bed without notifying staff , to avoid a fall with injury. DVT prophylaxis with subcutaneous heparin; we will forego SCDs due to bilateral lower extremity cellulitis along with obviously her left lower extremity venous stasis ulcer.. Impression and plans were discussed with patient who concurs. Time spent in evaluation and management of patient: 68 minutes. (2) Cellulitis of right leg Is this a current diagnosis for this admission?: Yes (3) History of MRSA infection Is this a current diagnosis for this admission?: YesPlan: Contact precautions. (4) UTI (urinary tract infection) Qualifiers: Urinary tract infection type: acute cystitis Hematuria presence: without hematuria Qualified Code(s): N30.00 - Acute cystitis without hematuria Is this a current diagnosis for this admission?: YesPlan: Blood and urine cultures. Above antibiotic should provide adequate coverage. (5) Venous stasis ulcer of left lower extremity Is this a current diagnosis for this admission?: Yes (6) CKD (chronic kidney disease), stage III Is this a current diagnosis for this admission?: Yes (7) Diabetes mellitus type 2 in obese Is this a current diagnosis for this admission?: YesPlan: Diabetic cardiac prerenal diet. Accu-Cheks with appropriate sliding scale coverage. Resume home medications as appropriate once these have been determined and reviewed. (8) Hyperlipidemia Qualifiers: Hyperlipidemia type: unspecified Qualified Code(s): E78.5 - Hyperlipidemia, unspecified Is this a current diagnosis for this admission?: YesPlan: Resume home medications as appropriate once these have been determined and reviewed. (9) Hypertension Qualifiers: Hypertension type: essential hypertension Qualified Code(s): I10 - Essential (primary) hypertension Is this a current diagnosis for this admission?: YesPlan: Resume home medications as appropriate once these have been determined and reviewed. (10) Morbid obesity with BMI of 60.0-69.9, adult Is this a current diagnosis for this admission?: YesPlan: Dietary consult. - Inpatient Certification Based on my medical assessment, after consideration of the patient's comorbidities, presenting symptoms, or acuity I expect that the services needed warrant INPATIENT care.: Yes I certify that my determination is in accordance with my understanding of Medicare's requirements for reasonable and necessary INPATIENT services [42 CFR 412.3e].: Yes Medical Necessity: Failure to Improve With Outpatient Therapy, Need Close Monitoring Due to Risk of Patient Decompensation, Need for Pain Control, Need for IV Antibiotics, Risk of Complication if Not Cared For in Hospital Post Hospital Care: D/C or Transfer Summary
[2016-09-18] MEDS: HEPARIN SOD (PORCINE) 5,000 UNIT/ML 1 ML SYRINGE SUBCUT SCH ×3 (05:38→23:21)
[2016-09-18] MEDS: MORPHINE SULFATE 10 MG/ML INJ IV PRN ×3 (06:24→23:22)
[2016-09-18 06:32] LABS: ABSOLUTE BASOPHILS # (AUTO) 0.1 10^3/uL (0.0-0.2); ABSOLUTE EOSINOPHILS # (AUTO) 0.3 10^3/uL (0.0-0.6); ABSOLUTE LYMPHOCYTES (AUTO) 4.8 10^3/uL (0.5-4.7); ABSOLUTE MONOCYTES (AUTO) 0.6 10^3/uL (0.1-1.4); ABSOLUTE NEUT (AUTO) 4.9 10^3/uL (1.7-8.2); BASOPHILS % (AUTO) 0.6 % (0-2); EOSINOPHILS % (AUTO) 2.5 % (0-6); HEMATOCRIT 35.5 % (36.0-47.0); HEMOGLOBIN 11.5 g/dL (12.0-15.5); MEAN CORPUSCULAR HEMOGLOBIN 27.1 pg (27.0-33.4); MEAN CORPUSCULAR HGB CONC 32.4 g/dL (32.0-36.0); MEAN CORPUSCULAR VOLUME 84 fl (80-97); RED BLOOD COUNT 4.24 10^6/uL (3.72-5.28); RED CELL DISTRIBUTION WIDTH 16.4 % (11.5-14.0); SEGMENTED NEUTROPHILS % (AUTO) 45.9 % (42-78); WHITE BLOOD COUNT 10.7 10^3/uL (4.0-10.5)
[2016-09-18 06:44] LABS: ANION GAP 12 (5-19); BLOOD UREA NITROGEN 24 mg/dL (7-20); CALCIUM 8.4 mg/dL (8.4-10.2); CARBON DIOXIDE 24 mmol/L (22-30); CHLORIDE 108 mmol/L (98-107); CREATININE RESULT 1.12 mg/dL (0.52-1.25); GLUCOSE 133 mg/dL (75-110); POTASSIUM 4.3 mmol/L (3.6-5.0); SODIUM 143.7 mmol/L (137-145)
[2016-09-18] MEDS ORDERED: CEFEPIME 2 GM/D5W RTU 50 ML IV SCH (10:00)
[2016-09-18] MEDS: DOCUSATE SODIUM 100 MG CAPSULE PO SCH ×2 (10:46→18:41)
[2016-09-18] MEDS ORDERED: HYDRALAZINE HCL INJ/PF 20 MG/1 ML SDV IV PRN (11:21)
--- NOTE | 2016-09-18 11:53 | PDOC PROGRESS REPORT ---
Subjective Progress Note for:: 09/18/16 Subjective:: Patient has several complaints to include diffuse itching from bug bites she sustained prior to admission. She has concern about low sodium diet that she is on. She seemed to understand after I explained to her that the sodium contributes to her edema, edema contributes to her skin breakdown, the skin breakdown contributes to her infection. She denies fever, chills, headache, chest pain, shortness of breath. Physical Exam Vital Signs: Temp Pulse Resp BP Pulse Ox 97.8 F 70 20 165/73 H 98 09/18/16 08:47 09/18/16 08:47 09/18/16 08:47 09/18/16 08:47 09/18/16 08:47 Intake & Output 09/17/16 09/18/16 09/19/16 06:59 06:59 06:59 Intake Total 400 120 Balance 400 120 Weight 171.5 kg GENERAL: No acute distress, morbidly obese HEENT: Conjunctiva clear, nonicteric, moist mucous membranes, no JVD, midline trachea RESPIRATORY: Clear to auscultation bilaterally, no wheezes, no rhonchi CARDIAC: Regular rate and rhythm, no murmurs/gallops/rubs ABDOMEN: Soft, nondistended, nontender, positive bowel sounds, no rebound, no guarding EXTREMETIES: Lymphedema noted in bilateral lower extremities NEUROLOGIC: Alert, oriented to person/place/time, CN's grossly intact, no focal deficits SKIN: Bandage to left lower extremity intact PSYCH: Normal mood, normal affect Results Laboratory Results: 09/18/16 06:02 09/18/16 06:02 09/18/16 09/18/16 06:02 06:02 WBC 10.7 H RBC 4.24 Hgb 11.5 L Hct 35.5 L MCV 84 MCH 27.1 MCHC 32.4 RDW 16.4 H Plt Count 235 Seg Neutrophils % 45.9 Lymphocytes % 45.0 Monocytes % 6.0 Eosinophils % 2.5 Basophils % 0.6 Absolute Neutrophils 4.9 Absolute Lymphocytes 4.8 H Absolute Monocytes 0.6 Absolute Eosinophils 0.3 Absolute Basophils 0.1 Sodium 143.7 Potassium 4.3 Chloride 108 H Carbon Dioxide 24 Anion Gap 12 BUN 24 H Creatinine 1.12 Est GFR ( Amer) 58 L Est GFR (Non-Af Amer) 48 L Glucose 133 H Calcium 8.4 Assessment & Plan - Diagnosis (1) Cellulitis of left leg Is this a current diagnosis for this admission?: YesPlan: IV cefepime and IV vancomycin pending cultures. Recent cultures of wound were growing MRSA and Pseudomonas. (2) UTI (urinary tract infection) Qualifiers: Urinary tract infection type: acute cystitis Is this a current diagnosis for this admission?: Yes (3) Venous stasis ulcer of left lower extremity Is this a current diagnosis for this admission?: YesPlan: Wet-to-dry dressing changes daily. Diet and hydrochlorothiazide for chronic venous stasis (4) Diabetes Qualifiers: Diabetes mellitus type: type 2 Diabetes mellitus complication status: with unspecified complications Diabetes mellitus senior care insulin use: with lathe tender use Qualified Code(s): E11.8 - Type 2 diabetes mellitus with unspecified complications; Z79.4 - MCC (current) use of insulin Is this a current diagnosis for this admission?: YesPlan: Blood glucose normal. Hemoglobin A1c 6.3. Continue metformin. (5) Hypertension Qualifiers: Hypertension type: essential hypertension Qualified Code(s): I10 - Essential (primary) hypertension Is this a current diagnosis for this admission?: Yes (6) Morbid obesity with BMI of 60.0-69.9, adult Is this a current diagnosis for this admission?: Yes - Time Time Spent with patient: 35 or more minutes
[2016-09-18] MEDS ORDERED: METFORMIN HCL 500 MG TABLET PO ONE (12:00)
[2016-09-18] MEDS ORDERED: AMLODIPINE BESYLATE 10 MG TABLET PO ONE (12:00)
[2016-09-18] MEDS ORDERED: LISINOPRIL 10 MG TABLET PO SCH (12:00)
[2016-09-18] MEDS: HYDROCHLOROTHIAZIDE 25 MG TABLET PO SCH (12:20)
[2016-09-18] MEDS: GABAPENTIN 300 MG CAPSULE PO PRN (12:23)
[2016-09-18] MEDS: HYDROXYZINE PAMOATE 25 MG CAPSULE PO PRN ×2 (14:10→23:37)
[2016-09-18] MEDS: CEFEPIME HCL 2 GM in DEXTROSE 5%-WATER 50 ML IV SCH (14:33)
[2016-09-18] MEDS: LORAZEPAM 1 MG TABLET PO PRN (15:29)
[2016-09-18] MEDS: VANCOMYCIN HCL 1,500 MG in DEXTROSE 5%-WATER 250 ML IV SCH (18:48)
[2016-09-18] MEDS: NYSTATIN TOPICAL POWDER 15 GM TP SCH (18:48)
--- NOTE | 2016-09-18 22:16 | PDOC CONSULTATION ---
Consultation Consult Date: 09/18/16 Attending physician:: ELIE HERRERA MD Consult reason:: Venous stasis ulcers, and cellulitis left lower extremity. History of Present Illness Admission Date/PCP: 09/18/16 04:13 Patient complains of: Pain, burning, itching at ulcer site left ankle. History of Present Illness: This morbidly obese 70-year-old female with diabetes, morbid obesity and multiple medical problems, is being seen by me because of chronic venous stasis ulceration with cellulitis of the left ankle. The patient has a long history of chronic venous insufficiency, evidenced by the chronic venous insufficiency signs in the leg. Patient has a very tender, weeping, inflamed venous stasis ulceration of her left ankle, for which surgical consultation has been requested. Past Medical History Cardiac Medical History: Reports: Hyperlipidema, Hypertension, Peripheral Vascular Disease Denies: Congestive Heart Failure, DVT, Myocardial Infarction, Pulmonary Embolism Pulmonary Medical History: Reports: None, Sleep Apnea Denies: Asthma, Chronic Obstructive Pulmonary Disease (COPD) EENT Medical History: Reports: None, Eyes - Glasses, Ears - Partial hearing loss , Other - Easy bruising Denies: Throat Neurological Medical History: Reports: None Denies: Hemorrhagic CVA, Ischemic CVA, Seizures Endocrine Medical History: Reports: Diabetes Mellitus Type 2 Denies: Diabetes Mellitus Type 1, Hyperthyroidism, Hypothyroidism Renal/ Medical History: Reports: None, Other - Occasional urinary tract infection. Malignancy Medical History: Reports: None GI Medical History: Reports: None, Gastroesophageal Reflux Disease - Distant history of same; no recent symptoms. 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 Denies: Clostridium Difficile, Hepatitis B, Hepatitis C Past Surgical History Past Surgical History: Reports: Orthopedic Surgery Social History Lives with: Alone Smoking Status: Unknown if Ever Smoked Frequency of Alcohol Use: None Hx Recreational Drug Use: No Drugs: None Hx Prescription Drug Abuse: No - Advance Directive Resuscitation Status: Full Code Family History Family History: CAD, Malignancy Parental Family History Reviewed: No - Not applicable Children Family History Reviewed: No - Not applicable Sibling(s) Family History Reviewed.: No - Not applicable. Medication/Allergy Home Medications: Amlodipine Besylate [Norvasc 10 mg Tablet] 10 mg PO DAILY 09/18/16 Atorvastatin Calcium [Lipitor 10 mg Tablet] 10 mg PO QHS 09/18/16 Celecoxib [Celebrex] 200 mg PO DAILY 09/18/16 Ergocalciferol (Vitamin D2) [Vitamin D2] 50,000 unit PO [id number] 09/18/16 Gabapentin [Neurontin 300 mg Capsule] 300 mg PO Q8HP PRN 09/18/16 Hydrochlorothiazide 25 mg PO DAILY 09/18/16 Lisinopril [Prinivil 10 mg Tablet] 10 mg PO DAILY 09/18/16 Lorazepam [Ativan 1 mg Tablet] 1 mg PO Q8HP PRN 09/18/16 Metformin HCl [Glucophage] 500 mg PO DAILY 09/18/16 Oxycodone HCl/Acetaminophen [Oxycodone-Acetaminophen 5-325] 1 tab PO Q6HP PRN Tramadol HCl [Ultram 50 mg Tablet] 50 mg PO Q8HP PRN 09/18/16 Allergies/Adverse Reactions: adhesive [Adhesive] Allergy (Verified 06/23/16 09:02) No Known Drug Allergies Allergy (Verified 06/23/16 10:24) Physical Exam Vital Signs: Temp Pulse Resp BP Pulse Ox 97.5 F 76 21 H 138/69 H 98 09/18/16 20:02 09/18/16 20:02 09/18/16 20:02 09/18/16 20:02 09/18/16 20:02 Intake & Output 09/17/16 09/18/16 09/19/16 06:59 06:59 06:59 Intake Total 400 1221 Output Total 1300 Balance 400 -79 Weight 171.5 kg Results Laboratory Results: 09/18/16 06:02 09/18/16 06:02 09/18/16 09/18/16 06:02 06:02 WBC 10.7 H RBC 4.24 Hgb 11.5 L Hct 35.5 L MCV 84 MCH 27.1 MCHC 32.4 RDW 16.4 H Plt Count 235 Seg Neutrophils % 45.9 Lymphocytes % 45.0 Monocytes % 6.0 Eosinophils % 2.5 Basophils % 0.6 Absolute Neutrophils 4.9 Absolute Lymphocytes 4.8 H Absolute Monocytes 0.6 Absolute Eosinophils 0.3 Absolute Basophils 0.1 Sodium 143.7 Potassium 4.3 Chloride 108 H Carbon Dioxide 24 Anion Gap 12 BUN 24 H Creatinine 1.12 Est GFR ( Amer) 58 L Est GFR (Non-Af Amer) 48 L Glucose 133 H Calcium 8.4 Assessment & Plan - Diagnosis (1) Venous stasis ulcer of left lower extremity Is this a current diagnosis for this admission?: Yes - Plan Summary Plan Summary: Agree with the present wound care with Xeroform gauze 4 x 4's and Kerlix. However, compression must be part of the approach to promote healing of this ulcer. Within the next few days, I recommend that an Unna boot, be applied to her left lower extremity. This will provide compression as well as local treatment of this broad area of inflamed ulceration. The ulcerations are superficial however, and should respond well to Unna boot therapy.
[2016-09-18] MEDS: LISINOPRIL 10 MG TABLET PO SCH (23:21)
[2016-09-18] MEDS: ATORVASTATIN CALCIUM 10 MG TABLET PO SCH (23:21)
[2016-09-19] MEDS: GABAPENTIN 300 MG CAPSULE PO PRN ×3 (00:12→17:41)
[2016-09-19] MEDS: CEFEPIME HCL 2 GM in DEXTROSE 5%-WATER 50 ML IV SCH ×2 (00:12→12:55)
[2016-09-19] MEDS: LORAZEPAM 1 MG TABLET PO PRN ×2 (00:12→09:07)
[2016-09-19] MEDS: OXYCODONE HCL IR 5 MG TABLET PO PRN ×3 (03:42→20:44)
[2016-09-19 05:42] LABS: ABSOLUTE BASOPHILS # (AUTO) 0.1 10^3/uL (0.0-0.2); ABSOLUTE EOSINOPHILS # (AUTO) 0.3 10^3/uL (0.0-0.6); ABSOLUTE LYMPHOCYTES (AUTO) 3.8 10^3/uL (0.5-4.7); ABSOLUTE MONOCYTES (AUTO) 0.5 10^3/uL (0.1-1.4); ABSOLUTE NEUT (AUTO) 4.6 10^3/uL (1.7-8.2); BASOPHILS % (AUTO) 0.8 % (0-2); EOSINOPHILS % (AUTO) 3.1 % (0-6); HEMATOCRIT 36.8 % (36.0-47.0); HEMOGLOBIN 11.8 g/dL (12.0-15.5); HGB HCT DIFFERENCE -1.4; MEAN CORPUSCULAR HEMOGLOBIN 26.9 pg (27.0-33.4); MEAN CORPUSCULAR VOLUME 84 fl (80-97); MONOCYTES % (AUTO) 5.7 % (3-13); RED BLOOD COUNT 4.39 10^6/uL (3.72-5.28); RED CELL DISTRIBUTION WIDTH 15.4 % (11.5-14.0); SEGMENTED NEUTROPHILS % (AUTO) 49.4 % (42-78); WHITE BLOOD COUNT 9.3 10^3/uL (4.0-10.5)
[2016-09-19 05:58] LABS: ANION GAP 12 (5-19); BLOOD UREA NITROGEN 19 mg/dL (7-20); CALCIUM 9.1 mg/dL (8.4-10.2); CARBON DIOXIDE 24 mmol/L (22-30); CHLORIDE 106 mmol/L (98-107); CREATININE RESULT 1.05 mg/dL (0.52-1.25); GLUCOSE 104 mg/dL (75-110); MAGNESIUM 1.7 mg/dL (1.6-2.3); POTASSIUM 4.5 mmol/L (3.6-5.0); SODIUM 141.6 mmol/L (137-145)
[2016-09-19] MEDS: HEPARIN SOD (PORCINE) 5,000 UNIT/ML 1 ML SYRINGE SUBCUT SCH ×3 (06:33→22:44)
[2016-09-19] MEDS: VANCOMYCIN HCL 1,500 MG in DEXTROSE 5%-WATER 250 ML IV SCH ×2 (06:34→17:40)
[2016-09-19] MEDS: MORPHINE SULFATE 10 MG/ML INJ IV PRN ×4 (06:34→22:45)
[2016-09-19] MEDS: LISINOPRIL 10 MG TABLET PO SCH ×2 (09:06→22:45)
[2016-09-19] MEDS: DOCUSATE SODIUM 100 MG CAPSULE PO SCH ×2 (09:07→17:40)
[2016-09-19] MEDS: AMLODIPINE BESYLATE 10 MG TABLET PO SCH (09:07)
[2016-09-19] MEDS: METFORMIN HCL 500 MG TABLET PO SCH (09:07)
[2016-09-19] MEDS: HYDROXYZINE PAMOATE 25 MG CAPSULE PO PRN (09:07)
[2016-09-19] MEDS: NYSTATIN TOPICAL POWDER 15 GM TP SCH ×2 (09:07→17:41)
[2016-09-19] MEDS ORDERED: MORPHINE SULFATE 10 MG/ML INJ ONE (10:47)
[2016-09-19] MEDS: HYDROCHLOROTHIAZIDE 25 MG TABLET PO SCH (12:55)
[2016-09-19] MEDS: DIPHENHYDRAMINE HCL 50 MG/ML VIAL IV PRN ×2 (12:55→22:45)
--- NOTE | 2016-09-19 15:08 | PDOC PROGRESS REPORT ---
Subjective Progress Note for:: 09/19/16 Subjective:: Patient complains of pain in left lower extremity. She states this is not being relieved by current dosages of morphine and oxycodone. Patient denies fever, chills, headache, new focal weakness, chest pain, shortness of breath, abdominal pain, nausea, vomiting, diarrhea, constipation. Physical Exam Vital Signs: Temp Pulse Resp BP Pulse Ox 98.3 F 60 21 H 151/70 H 98 09/19/16 12:10 09/19/16 14:00 09/19/16 12:10 09/19/16 12:10 09/19/16 12:10 Intake & Output 09/18/16 09/19/16 09/20/16 06:59 06:59 06:59 Intake Total 400 2521 Output Total 3700 Balance 400 -1179 Weight 171.5 kg 172 kg GENERAL: No acute distress, morbidly obese HEENT: Conjunctiva clear, nonicteric, moist mucous membranes, no JVD, midline trachea RESPIRATORY: Clear to auscultation bilaterally, no wheezes, no rhonchi CARDIAC: Regular rate and rhythm, no murmurs/gallops/rubs ABDOMEN: Soft, nondistended, nontender, positive bowel sounds, no rebound, no guarding EXTREMETIES: Lymphedema noted in bilateral lower extremities NEUROLOGIC: Alert, oriented to person/place/time, CN's grossly intact, no focal deficits SKIN: Bandage to left lower extremity intact PSYCH: Normal mood, normal affect Results Laboratory Results: 09/19/16 05:16 09/19/16 05:16 09/19/16 09/19/16 05:16 05:16 WBC 9.3 RBC 4.39 Hgb 11.8 L Hct 36.8 MCV 84 MCH 26.9 L MCHC 32.0 RDW 15.4 H Plt Count 226 Seg Neutrophils % 49.4 Lymphocytes % 41.0 Monocytes % 5.7 Eosinophils % 3.1 Basophils % 0.8 Absolute Neutrophils 4.6 Absolute Lymphocytes 3.8 Absolute Monocytes 0.5 Absolute Eosinophils 0.3 Absolute Basophils 0.1 Sodium 141.6 Potassium 4.5 Chloride 106 Carbon Dioxide 24 Anion Gap 12 BUN 19 Creatinine 1.05 Est GFR ( Amer) > 60 Est GFR (Non-Af Amer) 52 L Glucose 104 Calcium 9.1 Magnesium 1.7 09/18/16 11:15 Gram Stain - Preliminary Leg - Left Wound Culture - Preliminary Gram Positive Cocci Clusters Skin Nancy 09/18/16 08:04 Urine Culture - Preliminary Clean Catch Midstream Gram Negative Rods 09/18/16 02:00 MRSA Surveillance Culture - Final Nasophary (Mrsa Only) NO MRSA RECOVERED 09/17/16 22:59 Blood Culture - Preliminary Blood NO GROWTH IN 24 HOURS 09/17/16 21:20 Blood Culture - Preliminary Blood NO GROWTH IN 24 HOURS Assessment & Plan - Diagnosis (1) Cellulitis of left leg Is this a current diagnosis for this admission?: YesPlan: IV cefepime and IV vancomycin pending cultures. Wound culture growing gram- positive cocci in clusters tentatively. Recent cultures of wound were growing MRSA and Pseudomonas. (2) UTI (urinary tract infection) Qualifiers: Urinary tract infection type: acute cystitis Is this a current diagnosis for this admission?: YesPlan: Continue IV cefepime pending further culture. Urine culture tentatively growing gram-negative rods. (3) Venous stasis ulcer of left lower extremity Is this a current diagnosis for this admission?: YesPlan: Skin changes per surgery recommendation. Address lymphedema as mentioned below. Increase morphine for improved pain control. 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 Hemoglobin A1c 6.3. Continue metformin. (5) Hypertension Qualifiers: Hypertension type: essential hypertension Qualified Code(s): I10 - Essential (primary) hypertension Is this a current diagnosis for this admission?: YesPlan: Continue Norvasc. It is noted that Norvasc can contribute to edema however I think patient's lymphedema is more contributed to her BMI of 63. (6) Morbid obesity with BMI of 60.0-69.9, adult Is this a current diagnosis for this admission?: Yes (7) Lymphedema Is this a current diagnosis for this admission?: YesPlan: Discontinue hydrochlorothiazide. Start Lasix 20 mg IV every 12 hours. - Time Time Spent with patient: 35 or more minutes
[2016-09-19] MEDS: FUROSEMIDE INJ/PF 20 MG/2 ML SDV IV SCH (17:39)
[2016-09-19] MEDS: TOLTERODINE TARTRATE 1 MG TABLET PO SCH (22:46)
[2016-09-19] MEDS: ATORVASTATIN CALCIUM 10 MG TABLET PO SCH (22:46)
[2016-09-20] MEDS: CEFEPIME HCL 2 GM in DEXTROSE 5%-WATER 50 ML IV SCH ×2 (00:54→14:33)
[2016-09-20] MEDS: GABAPENTIN 300 MG CAPSULE PO PRN (00:54)
[2016-09-20] MEDS: IPRATROPIUM/ALBUTEROL 0.5-2.5 MG/3 ML AMPUL NEB PRN ×4 (01:50→19:46)
[2016-09-20] MEDS: MORPHINE SULFATE 10 MG/ML INJ IV PRN ×5 (02:00→20:31)
[2016-09-20] MEDS: LORAZEPAM 1 MG TABLET PO PRN ×2 (03:50→22:24)
[2016-09-20] MEDS: OXYCODONE HCL IR 5 MG TABLET PO PRN ×3 (03:50→17:07)
[2016-09-20] MEDS: FUROSEMIDE INJ/PF 20 MG/2 ML SDV IV SCH ×2 (06:29→17:08)
[2016-09-20] MEDS: VANCOMYCIN HCL 1,500 MG in DEXTROSE 5%-WATER 250 ML IV SCH ×2 (06:29→17:08)
[2016-09-20] MEDS: HEPARIN SOD (PORCINE) 5,000 UNIT/ML 1 ML SYRINGE SUBCUT SCH ×3 (06:29→22:24)
[2016-09-20] MEDS: LISINOPRIL 10 MG TABLET PO SCH ×2 (09:16→22:24)
[2016-09-20] MEDS: DOCUSATE SODIUM 100 MG CAPSULE PO SCH ×2 (09:16→17:08)
[2016-09-20] MEDS: AMLODIPINE BESYLATE 10 MG TABLET PO SCH (09:17)
[2016-09-20] MEDS: METFORMIN HCL 500 MG TABLET PO SCH (09:17)
[2016-09-20] MEDS: NYSTATIN TOPICAL POWDER 15 GM TP SCH ×2 (09:18→17:08)
[2016-09-20] MEDS: TOLTERODINE TARTRATE 1 MG TABLET PO SCH ×2 (09:18→22:23)
--- NOTE | 2016-09-20 12:43 | PROGRESS NOTE E ---
Progress Note NAME: SERINA LEE : 1945 AGE: 70Y DATE: 09/20/2016 ROOM: 402 SUBJECTIVE: The patient had her leg wrapped last night. She is having some pain. PHYSICAL EXAMINATION: VITAL SIGNS: Stable. EXTREMITIES: Left lower extremity dressing is removed. Edema reasonably well controlled. Chronic fungal changes to all 5 nail beds. The open wound is a partial-thickness, burn-like wound with an irregular geographic area; a significant amount of biofilm adherent to the wound. Microbiology shows gram-positive cocci. LABORATORY PROFILE: Blood sugar in the 100s. IMPRESSION: IMPROVED EDEMA CONTROL LEFT LOWER EXTREMITY; OPEN WOUND LARGE REQUIRING GENTLE DEBRIDEMENT AND ONGOING WOUND CARE. RECOMMENDATIONS: 1. Will wash wound with chlorhexidine scrub wash today. 2. Apply a temporary dressing. 3. I believe the wound is too exudative for a Unna boot currently. DICTATING PHYSICIAN: MARIE DICKERSON M.D. [id number] PHY#: [id number] ID: [id number] JOB#: [id number] ACCT: [id number] cc: >
--- NOTE | 2016-09-20 13:17 | PDOC PROGRESS REPORT ---
Subjective Progress Note for:: 09/20/16 Subjective:: Patient complains of pain in left lower extremity. She states more specifically that she is having pain in the left forefoot when she bears weight. Patient denies fever, chills, headache, new focal weakness, chest pain, shortness of breath, abdominal pain, nausea, vomiting, diarrhea, constipation. Physical Exam Vital Signs: Temp Pulse Resp BP Pulse Ox 98.4 F 86 20 136/64 H 96 09/20/16 08:23 09/20/16 10:47 09/20/16 10:47 09/20/16 08:23 09/20/16 10:47 Intake & Output 09/19/16 09/20/16 09/21/16 06:59 06:59 06:59 Intake Total 2521 1131 Output Total 3700 1400 Balance -1179 -269 Weight 172 kg GENERAL: No acute distress, morbidly obese HEENT: Conjunctiva clear, nonicteric, moist mucous membranes, no JVD, midline trachea RESPIRATORY: Clear to auscultation bilaterally, no wheezes, no rhonchi CARDIAC: Regular rate and rhythm, no murmurs/gallops/rubs ABDOMEN: Soft, nondistended, nontender, positive bowel sounds, no rebound, no guarding EXTREMETIES: Lymphedema noted in bilateral lower extremities NEUROLOGIC: Alert, oriented to person/place/time, CN's grossly intact, no focal deficits SKIN: Bandage to left lower extremity intact PSYCH: Normal mood, normal affect MUSCULOSKELETAL: Tenderness over left metatarsal Results Laboratory Results: 09/19/16 05:16 09/19/16 05:16 Assessment & Plan - Diagnosis (1) Cellulitis of left leg Is this a current diagnosis for this admission?: YesPlan: IV cefepime and IV vancomycin pending cultures. Wound culture growing gram- positive cocci in clusters tentatively. Recent cultures of wound were growing MRSA and Pseudomonas. (2) UTI (urinary tract infection) Qualifiers: Urinary tract infection type: acute cystitis Is this a current diagnosis for this admission?: YesPlan: Continue IV cefepime pending further culture. Urine culture tentatively growing gram-negative rods. (3) Venous stasis ulcer of left lower extremity Is this a current diagnosis for this admission?: YesPlan: Dressing changes per surgery recommendation. Address lymphedema as mentioned below. Morphine for pain control. 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 Hemoglobin A1c 6.3. Continue metformin. (5) Hypertension Qualifiers: Hypertension type: essential hypertension Qualified Code(s): I10 - Essential (primary) hypertension Is this a current diagnosis for this admission?: YesPlan: Continue Norvasc. It is noted that Norvasc can contribute to edema however I think patient's lymphedema is more contributed to her BMI of 63. (6) Morbid obesity with BMI of 60.0-69.9, adult Is this a current diagnosis for this admission?: Yes (7) Lymphedema Is this a current diagnosis for this admission?: YesPlan: Discontinued hydrochlorothiazide. Lasix 20 mg IV every 12 hours. (8) Metatarsalgia Qualifiers: Laterality: left Qualified Code(s): M77.42 - Metatarsalgia, left foot Is this a current diagnosis for this admission?: YesPlan: Postop shoe while weightbearing. - Time Time Spent with patient: 25-34 minutes Anticipated discharge: Home with Homehealth
[2016-09-20] MEDS ORDERED: GABAPENTIN 300 MG CAPSULE PO PRN (13:52)
[2016-09-20] MEDS: ATORVASTATIN CALCIUM 10 MG TABLET PO SCH (22:23)
[2016-09-21] MEDS: OXYCODONE HCL IR 5 MG TABLET PO PRN ×3 (00:41→21:01)
[2016-09-21] MEDS: CEFEPIME HCL 2 GM in DEXTROSE 5%-WATER 50 ML IV SCH (00:42)
[2016-09-21] MEDS: MORPHINE SULFATE 10 MG/ML INJ IV PRN (00:50)
[2016-09-21 04:52] LABS: ABSOLUTE BASOPHILS # (AUTO) 0.1 10^3/uL (0.0-0.2); ABSOLUTE EOSINOPHILS # (AUTO) 0.2 10^3/uL (0.0-0.6); ABSOLUTE LYMPHOCYTES (AUTO) 4.1 10^3/uL (0.5-4.7); ABSOLUTE NEUT (AUTO) 6.4 10^3/uL (1.7-8.2); BASOPHILS % (AUTO) 1.1 % (0-2); EOSINOPHILS % (AUTO) 1.4 % (0-6); HEMATOCRIT 37.6 % (36.0-47.0); HEMOGLOBIN 12.1 g/dL (12.0-15.5); HGB HCT DIFFERENCE -1.3; LYMPHOCYTES % (AUTO) 34.5 % (13-45); MEAN CORPUSCULAR HEMOGLOBIN 26.7 pg (27.0-33.4); MEAN CORPUSCULAR HGB CONC 32.2 g/dL (32.0-36.0); MEAN CORPUSCULAR VOLUME 83 fl (80-97); MONOCYTES % (AUTO) 8.5 % (3-13); RED BLOOD COUNT 4.53 10^6/uL (3.72-5.28); RED CELL DISTRIBUTION WIDTH 15.7 % (11.5-14.0); SEGMENTED NEUTROPHILS % (AUTO) 54.5 % (42-78); WHITE BLOOD COUNT 11.8 10^3/uL (4.0-10.5)
[2016-09-21 05:07] LABS: ANION GAP 11 (5-19); BLOOD UREA NITROGEN 31 mg/dL (7-20); CALCIUM 9.7 mg/dL (8.4-10.2); CARBON DIOXIDE 28 mmol/L (22-30); CHLORIDE 96 mmol/L (98-107); CREATININE RESULT 1.45 mg/dL (0.52-1.25); GLUCOSE 128 mg/dL (75-110); POTASSIUM 4.7 mmol/L (3.6-5.0); SODIUM 134.6 mmol/L (137-145)
[2016-09-21] MEDS: VANCOMYCIN HCL 1,500 MG in DEXTROSE 5%-WATER 250 ML IV SCH (06:14)
[2016-09-21] MEDS: HEPARIN SOD (PORCINE) 5,000 UNIT/ML 1 ML SYRINGE SUBCUT SCH ×3 (06:14→21:04)
[2016-09-21] MEDS: FUROSEMIDE INJ/PF 20 MG/2 ML SDV IV SCH (06:14)
[2016-09-21] MEDS ORDERED: GABAPENTIN 300 MG CAPSULE PO SCH (09:45)
[2016-09-21] MEDS ORDERED: GABAPENTIN 300 MG CAPSULE PO ONE (10:15)
[2016-09-21] MEDS: LISINOPRIL 10 MG TABLET PO SCH ×2 (10:17→21:02)
[2016-09-21] MEDS: TOLTERODINE TARTRATE 1 MG TABLET PO SCH ×2 (10:17→21:04)
[2016-09-21] MEDS: AMLODIPINE BESYLATE 10 MG TABLET PO SCH (10:17)
[2016-09-21] MEDS: NYSTATIN TOPICAL POWDER 15 GM TP SCH ×2 (10:18→17:09)
[2016-09-21] MEDS: METFORMIN HCL 500 MG TABLET PO SCH (10:18)
[2016-09-21] MEDS: DOCUSATE SODIUM 100 MG CAPSULE PO SCH ×2 (10:18→17:08)
[2016-09-21] MEDS: IPRATROPIUM/ALBUTEROL 0.5-2.5 MG/3 ML AMPUL NEB PRN ×2 (11:41→20:33)
[2016-09-21 12:47] LABS: PROTHROMBIN TIME 13.6 SEC (11.4-15.4)
[2016-09-21 12:48] LABS: PARTIAL THROMBOPLASTIN TIME 29.1 SEC (23.5-35.8)
[2016-09-21] MEDS ORDERED: MORPHINE SULFATE 10 MG/ML INJ IV ONE (13:00)
--- NOTE | 2016-09-21 14:49 | RADIOLOGY REPORT (SQ) ---
EXAM DESCRIPTION: PICC INSERTION; FLUORO/CV PLACEMENT; U/S GUIDE FOR VASCULAR ACCESS COMPLETED DATE/TIME: 09/21/2016 2:36 pm REASON FOR STUDY: need for iv abx, super morbid obesity; IV ABX COMPARISON: 08/16/2016 FLUOROSCOPY TIME: 27 seconds 1 ultrasound and 8 digital radiographic images saved to PACS. TECHNIQUE: Fluoroscopic and ultrasound guided PICC placement. LIMITATIONS: None. PROCEDURE: After written consent and assessment were obtained, the patient was brought into the fluo roscopy room and place supine on the table. Ultrasound was used on the patient's left arm for PICC a ccess. The left arm was prepped and draped in a sterile fashion along with the ultrasound probe. The entry site was anesthetized with 1% lidocaine. A 21 gauge 7 cm needle was advanced through the skin a nd into the left basilic vein under live ultrasound guidance. An ultrasound image was saved to PACS confirming access site. A .018 guide wire was then inserted through the needle and into the venous s ystem. The needle was the removed and an 11 blade scalpel was used to make a 1cm skin incision. A 5 fr peel-away sheath was advanced over the wire and into the venous system. A measurement was then mad e using the existing wire and live fluoroscopic guidance. The wire was then removed and the trimmed. The PICC was advanced through the peel-away sheath and into the venous system. The peel-away sheath w as removed and the catheter was adhered to the patients arm with a stat lock. The catheter was then a spirated and flushed and a sterile bandage was placed over the access site. A fluoroscopic spot imag e was saved to PACS confirming the catheter tip within the superior vena cava. IMPRESSION: SUCCESSFUL PLACEMENT OF A 5 FR DUAL LUMEN 43 CM PICC IN THE left basilic VEIN. COMMENT: Patient medication list reviewed: Yes- Quality ID# [id number]:Eligible professional attests to doc umenting in the medical record they obtained, updated, or reviewed the patient's current medications. . Quality ID 145: Final reports for procedures using fluoroscopy that document radiation exposure pop alfred, or exposure time and number of fluorographic images (if radiation exposure indices are not avail able) Quality ID #76: The patient was prepped and draped using maximum sterile barrier technique including cap, mask, sterile gown, sterile gloves, a large sterile sheet, hand hygiene, and 2% Chlorhexidine fo r cutaneous antisepsis. When ultrasound is used, sterile ultrasound techniques are followed requiring sterile gel and sterile probes. TECHNICAL DOCUMENTATION: JOB ID: [id number] [employer]- All Rights Reserved
--- NOTE | 2016-09-21 17:05 | PDOC PROGRESS REPORT ---
Subjective Progress Note for:: 09/21/16 Subjective:: At the time, Patient is sleeping. Dressing was changed last evening. Physical Exam Vital Signs: Temp Pulse Resp BP Pulse Ox 98.8 F 89 20 127/76 H 94 09/21/16 16:31 09/21/16 16:31 09/21/16 16:31 09/21/16 16:31 09/21/16 16:31 Intake & Output 09/20/16 09/21/16 09/22/16 06:59 06:59 06:59 Intake Total 1131 460 Output Total 1400 Balance -269 460 Extremities exam: PRESENT: other - Left lower extremity dressing remains intact , with significant drainage. Results Laboratory Results: 09/21/16 03:54 09/21/16 03:54 09/21/16 09/21/16 03:54 03:54 WBC 11.8 H RBC 4.53 Hgb 12.1 Hct 37.6 MCV 83 MCH 26.7 L MCHC 32.2 RDW 15.7 H Plt Count 238 Seg Neutrophils % 54.5 Lymphocytes % 34.5 Monocytes % 8.5 Eosinophils % 1.4 Basophils % 1.1 Absolute Neutrophils 6.4 Absolute Lymphocytes 4.1 Absolute Monocytes 1.0 Absolute Eosinophils 0.2 Absolute Basophils 0.1 Sodium 134.6 L Potassium 4.7 Chloride 96 L Carbon Dioxide 28 Anion Gap 11 BUN 31 H Creatinine 1.45 H Est GFR ( Amer) 43 L Est GFR (Non-Af Amer) 36 L Glucose 128 H Calcium 9.7 09/18/16 11:15 Leg - Left Gram Stain - Final 09/18/16 11:15 Leg - Left Wound Culture - Final Mrsa (Meth Resis Staph Aureus) Skin Nancy No Anaerobic Organisms 09/18/16 08:04 Clean Catch Midstream Urine Culture - Final Klebsiella Pneumoniae-Esbl 09/21/16 03:54 Creatine Kinase 72 Impressions: Guidance Fluoroscopy 09/21/16 00:00 IMPRESSION: SUCCESSFUL PLACEMENT OF A 5 FR DUAL LUMEN 43 CM PICC IN THE left basilic VEIN. Interventional Vascular Procedure 09/21/16 00:00 IMPRESSION: SUCCESSFUL PLACEMENT OF A 5 FR DUAL LUMEN 43 CM PICC IN THE left basilic VEIN. PICC Line Insertion 09/21/16 00:00 IMPRESSION: SUCCESSFUL PLACEMENT OF A 5 FR DUAL LUMEN 43 CM PICC IN THE left basilic VEIN. Assessment & Plan - Diagnosis (1) Venous stasis ulcer of left lower extremity Is this a current diagnosis for this admission?: Yes - Plan Summary Plan Summary: We will change dressing tomorrow morning, and then determine when the Unaboot will be applied.
[2016-09-21] MEDS: GABAPENTIN 300 MG CAPSULE PO SCH ×2 (17:08→21:02)
[2016-09-21] MEDS: DAPTOMYCIN 500 MG in NORMAL SALINE 50 ML IV SCH (17:09)
[2016-09-21] MEDS ORDERED: NORMAL SALINE 10 ML SDV (AFTER EACH USE) IV PRN (17:46)
[2016-09-21 20:15] LABS: CREATININE RESULT 1.57 mg/dL (0.52-1.25)
[2016-09-21] MEDS: ATORVASTATIN CALCIUM 10 MG TABLET PO SCH (21:01)
[2016-09-21] MEDS: SENNOSIDES/DOCUSATE 8.6-50 MG 1 EACH TABLET PO SCH (21:01)
[2016-09-21] MEDS: NORMAL SALINE 10 ML SDV (SCHEDULED) IV SCH (21:02)
[2016-09-21] MEDS: LORAZEPAM 1 MG TABLET PO PRN (21:04)
--- NOTE | 2016-09-21 22:04 | PDOC PROGRESS REPORT ---
Subjective Progress Note for:: 09/21/16 Subjective:: Complains of pain in her lower extremity. As chest pain, shortness of breath, nausea, vomiting, diarrhea. Nursing reports patient was incontinent of urine. Patient reports that she eats and drinks what she would like at home and does not take Lasix there. She refuses to be on a low-salt diet here in the hospital. She refuses also to be on a low sugar diet here in the hospital. Physical Exam Vital Signs: Temp Pulse Resp BP Pulse Ox 98.9 F 79 17 137/57 H 94 09/21/16 01:57 09/21/16 07:00 09/21/16 01:57 09/21/16 01:57 09/21/16 01:57 Intake & Output 09/20/16 09/21/16 09/22/16 06:59 06:59 06:59 Intake Total 1131 460 Output Total 1400 Balance -269 460 Exam: GENERAL: No acute distress, morbidly obese HEENT: Conjunctiva clear, nonicteric, moist mucous membranes, no JVD, midline trachea RESPIRATORY: Clear to auscultation bilaterally, no wheezes, no rhonchi CARDIAC: Regular rate and rhythm, no murmurs/gallops/rubs ABDOMEN: Soft, nondistended, nontender, positive bowel sounds, no rebound, no guarding EXTREMETIES: Lymphedema noted in bilateral lower extremities NEUROLOGIC: Alert, oriented to person/place/time, CN's grossly intact, no focal deficits SKIN: 20cm of abrasion, no erythema, weeping serous fluid PSYCH: Hostile Results Laboratory Results: 09/21/16 03:54 09/21/16 03:54 09/21/16 09/21/16 03:54 03:54 WBC 11.8 H RBC 4.53 Hgb 12.1 Hct 37.6 MCV 83 MCH 26.7 L MCHC 32.2 RDW 15.7 H Plt Count 238 Seg Neutrophils % 54.5 Lymphocytes % 34.5 Monocytes % 8.5 Eosinophils % 1.4 Basophils % 1.1 Absolute Neutrophils 6.4 Absolute Lymphocytes 4.1 Absolute Monocytes 1.0 Absolute Eosinophils 0.2 Absolute Basophils 0.1 Sodium 134.6 L Potassium 4.7 Chloride 96 L Carbon Dioxide 28 Anion Gap 11 BUN 31 H Creatinine 1.45 H Est GFR ( Amer) 43 L Est GFR (Non-Af Amer) 36 L Glucose 128 H Calcium 9.7 Assessment & Plan - Diagnosis (1) Cellulitis of left leg Is this a current diagnosis for this admission?: YesPlan: And has grown in culture MRSA. Will start patient on daptomycin and rifampin for this. Patient does have an exceptionally complex wound and I am concerned about her ability to manage this at home given from super morbid obesity. Will refer patient to LTAC and or rehabilitation facility for wound management. Will place PICC line for IV antibiotics. (2) Lymphedema Is this a current diagnosis for this admission?: YesPlan: Unna boot (3) Venous stasis ulcer of left lower extremity Is this a current diagnosis for this admission?: Yes (4) CKD (chronic kidney disease), stage III Is this a current diagnosis for this admission?: Yes (5) Diabetes mellitus type 2 in obese Is this a current diagnosis for this admission?: Yes (6) Hyperlipidemia Qualifiers: Hyperlipidemia type: unspecified Qualified Code(s): E78.5 - Hyperlipidemia, unspecified Is this a current diagnosis for this admission?: Yes (7) Hypertension Qualifiers: Hypertension type: essential hypertension Qualified Code(s): I10 - Essential (primary) hypertension Is this a current diagnosis for this admission?: Yes (8) Morbid obesity with BMI of 60.0-69.9, adult Is this a current diagnosis for this admission?: Yes (9) Morbid obesity Qualifiers: Obesity type: due to excess calories Qualified Code(s): E66.01 - Morbid (severe) obesity due to excess calories Is this a current diagnosis for this admission?: YesPlan: Super morbidly obese but yet refuses to follow diet in the hospital and becomes hostile when this was discussed with her (10) UTI (urinary tract infection) Qualifiers: Urinary tract infection type: acute cystitis Hematuria presence: without hematuria Qualified Code(s): N30.00 - Acute cystitis without hematuria Is this a current diagnosis for this admission?: YesPlan: It was ESBL Klebsiella. Initiate patient on ertapenem, patient was initially given Levaquin, but is resistant to Cipro and suspect that Levaquin will not be far behind in resistance. - Time Time Spent with patient: 25-34 minutes Medications reviewed and adjusted accordingly: Yes Anticipated discharge: Other Within: when bed available
[2016-09-21] MEDS ORDERED: ERTAPENEM SODIUM INJ 1 GM VIAL IV PRN (22:08)
[2016-09-21] MEDS ORDERED: ERTAPENEM SODIUM 1 GM in NORMAL SALINE 50 ML IV ONE (22:30)
[2016-09-22] MEDS: HEPARIN SOD (PORCINE) 5,000 UNIT/ML 1 ML SYRINGE SUBCUT SCH ×3 (06:02→22:48)
[2016-09-22] MEDS: GABAPENTIN 300 MG CAPSULE PO SCH ×3 (06:05→22:48)
[2016-09-22 09:12] LABS: ABSOLUTE BASOPHILS # (AUTO) 0.1 10^3/uL (0.0-0.2); ABSOLUTE EOSINOPHILS # (AUTO) 0.4 10^3/uL (0.0-0.6); ABSOLUTE LYMPHOCYTES (AUTO) 2.7 10^3/uL (0.5-4.7); ABSOLUTE MONOCYTES (AUTO) 0.8 10^3/uL (0.1-1.4); ABSOLUTE NEUT (AUTO) 3.6 10^3/uL (1.7-8.2); BASOPHILS % (AUTO) 0.7 % (0-2); HEMATOCRIT 35.8 % (36.0-47.0); HEMOGLOBIN 11.4 g/dL (12.0-15.5); HGB HCT DIFFERENCE -1.6; LYMPHOCYTES % (AUTO) 35.8 % (13-45); MEAN CORPUSCULAR HEMOGLOBIN 26.9 pg (27.0-33.4); MEAN CORPUSCULAR HGB CONC 31.9 g/dL (32.0-36.0); MEAN CORPUSCULAR VOLUME 84 fl (80-97); MONOCYTES % (AUTO) 10.6 % (3-13); RED BLOOD COUNT 4.24 10^6/uL (3.72-5.28); RED CELL DISTRIBUTION WIDTH 15.8 % (11.5-14.0); SEGMENTED NEUTROPHILS % (AUTO) 47.9 % (42-78); WHITE BLOOD COUNT 7.5 10^3/uL (4.0-10.5)
[2016-09-22 09:33] LABS: ANION GAP 11 (5-19); BLOOD UREA NITROGEN 34 mg/dL (7-20); CALCIUM 9.7 mg/dL (8.4-10.2); CARBON DIOXIDE 29 mmol/L (22-30); CHLORIDE 97 mmol/L (98-107); CREATININE RESULT 1.51 mg/dL (0.52-1.25); GLUCOSE 112 mg/dL (75-110); POTASSIUM 4.3 mmol/L (3.6-5.0); SODIUM 137.3 mmol/L (137-145)
[2016-09-22] MEDS: IPRATROPIUM/ALBUTEROL 0.5-2.5 MG/3 ML AMPUL NEB PRN (09:33)
[2016-09-22] MEDS: NORMAL SALINE 10 ML SDV (SCHEDULED) IV SCH ×2 (09:38→22:48)
[2016-09-22] MEDS: DOCUSATE SODIUM 100 MG CAPSULE PO SCH ×2 (09:39→17:46)
[2016-09-22] MEDS: AMLODIPINE BESYLATE 10 MG TABLET PO SCH (09:39)
[2016-09-22] MEDS: LISINOPRIL 10 MG TABLET PO SCH ×2 (09:39→22:48)
[2016-09-22] MEDS: RIFAMPIN 300 MG CAPSULE PO SCH ×2 (09:39→17:47)
[2016-09-22] MEDS: METFORMIN HCL 500 MG TABLET PO SCH (09:39)
[2016-09-22] MEDS: NYSTATIN TOPICAL POWDER 15 GM TP SCH ×2 (09:39→17:47)
[2016-09-22] MEDS: TOLTERODINE TARTRATE 1 MG TABLET PO SCH ×2 (09:39→22:48)
[2016-09-22] MEDS ORDERED: LEVOFLOXACIN 750 MG TABLET PO SCH (10:00)
[2016-09-22] MEDS ORDERED: ERTAPENEM SODIUM 1 GM in NORMAL SALINE 50 ML IV SCH ×2 (12:00→22:00)
[2016-09-22] MEDS: OXYCODONE HCL IR 5 MG TABLET PO PRN (12:24)
[2016-09-22] MEDS ORDERED: MORPHINE SULFATE 10 MG/ML INJ IV ONE (12:25)
[2016-09-22] MEDS ORDERED: GUAIFENESIN 600 MG TABLET.SA PO ONE ×2 (13:00→18:00)
--- NOTE | 2016-09-22 14:24 | RADIOLOGY REPORT (SQ) ---
EXAM DESCRIPTION: CHEST PA/LAT COMPLETED DATE/TIME: 09/22/2016 2:15 pm REASON FOR STUDY: dyspena, sputum COMPARISON: 07/19/2014 EXAM PARAMETERS: NUMBER OF VIEWS: two views TECHNIQUE: Digital Frontal and Lateral radiographic views of the chest acquired. RADIATION DOSE: NA LIMITATIONS: none FINDINGS: LUNGS AND PLEURA: No opacities, masses or pneumothorax. No pleural effusion. PICC line re leslie in place. MEDIASTINUM AND HILAR STRUCTURES: No masses or contour abnormalities. HEART AND VASCULAR STRUCTURES: Heart normal size. No evidence for failure. BONES: No acute findings. HARDWARE: None in the chest. OTHER: No other significant finding. IMPRESSION: NO SIGNIFICANT RADIOGRAPHIC FINDING IN THE CHEST. TECHNICAL DOCUMENTATION: JOB ID: [id number] [employer]- All Rights Reserved
[2016-09-22] MEDS: IPRATROPIUM/ALBUTEROL 0.5-2.5 MG/3 ML AMPUL NEB SCH ×2 (16:09→20:10)
[2016-09-22] MEDS: LACTOBACILLUS ACIDOPHILUS 250 MG TAB PO SCH (17:46)
[2016-09-22] MEDS: DAPTOMYCIN 500 MG in NORMAL SALINE 50 ML IV SCH (17:46)
[2016-09-22] MEDS ORDERED: ERTAPENEM SODIUM INJ 1 GM VIAL ONE (22:46)
[2016-09-22] MEDS: ATORVASTATIN CALCIUM 10 MG TABLET PO SCH (22:48)
[2016-09-22] MEDS: SENNOSIDES/DOCUSATE 8.6-50 MG 1 EACH TABLET PO SCH (22:48)
[2016-09-22] MEDS: GUAIFENESIN 600 MG TABLET.SA PO SCH (22:49)
[2016-09-23] MEDS: GABAPENTIN 300 MG CAPSULE PO SCH ×3 (05:50→21:54)
[2016-09-23] MEDS: HEPARIN SOD (PORCINE) 5,000 UNIT/ML 1 ML SYRINGE SUBCUT SCH ×3 (05:50→21:55)
[2016-09-23] MEDS: OXYCODONE HCL IR 5 MG TABLET PO PRN ×3 (05:54→18:37)
[2016-09-23] MEDS: TRAMADOL HCL 50 MG TABLET PO PRN ×2 (08:22→17:16)
--- NOTE | 2016-09-23 08:29 | PDOC PROGRESS REPORT ---
Subjective Progress Note for:: 09/23/16 Subjective:: Still having leg pain at ulcer site. Physical Exam Vital Signs: Temp Pulse Resp BP Pulse Ox 98.4 F 93 21 H 120/57 L 100 09/23/16 07:55 09/23/16 07:55 09/23/16 03:34 09/23/16 07:55 09/23/16 07:55 Intake & Output 09/22/16 09/23/16 09/24/16 06:59 06:59 06:59 Intake Total 150 710 Output Total 450 Balance -300 710 Weight 172 kg General appearance: PRESENT: no acute distress, cooperative Extremities exam: PRESENT: other - Diffuse leg swelling with partial thickness diffuse ulcer of the lower extremity no necrotic debris. It is very clean. There is serous drainage. Mild surrounding erythema. Results Laboratory Results: 09/22/16 08:41 09/22/16 08:41 09/22/16 09/22/16 08:41 08:41 WBC 7.5 RBC 4.24 Hgb 11.4 L Hct 35.8 L MCV 84 MCH 26.9 L MCHC 31.9 L RDW 15.8 H Plt Count 222 Seg Neutrophils % 47.9 Lymphocytes % 35.8 Monocytes % 10.6 Eosinophils % 5.0 Basophils % 0.7 Absolute Neutrophils 3.6 Absolute Lymphocytes 2.7 Absolute Monocytes 0.8 Absolute Eosinophils 0.4 Absolute Basophils 0.1 Sodium 137.3 Potassium 4.3 Chloride 97 L Carbon Dioxide 29 Anion Gap 11 BUN 34 H Creatinine 1.51 H Est GFR ( Amer) 41 L Est GFR (Non-Af Amer) 34 L Glucose 112 H Calcium 9.7 09/21/16 03:54 Creatine Kinase 72 Impressions: Guidance Fluoroscopy 09/21/16 00:00 IMPRESSION: SUCCESSFUL PLACEMENT OF A 5 FR DUAL LUMEN 43 CM PICC IN THE left basilic VEIN. Interventional Vascular Procedure 09/21/16 00:00 IMPRESSION: SUCCESSFUL PLACEMENT OF A 5 FR DUAL LUMEN 43 CM PICC IN THE left basilic VEIN. PICC Line Insertion 09/21/16 00:00 IMPRESSION: SUCCESSFUL PLACEMENT OF A 5 FR DUAL LUMEN 43 CM PICC IN THE left basilic VEIN. Chest X-Ray 09/22/16 00:00 IMPRESSION: NO SIGNIFICANT RADIOGRAPHIC FINDING IN THE CHEST. Assessment & Plan - Diagnosis (1) Venous stasis ulcer of left lower extremity Is this a current diagnosis for this admission?: YesPlan: Continue leg elevation and dressings. Patient requests bacitracin to avoid burning. Will try bacitracin with overlying Xeroform dressing. Will likely apply Unna boot in the next couple days. Continue antibiotics.
[2016-09-23] MEDS: IPRATROPIUM/ALBUTEROL 0.5-2.5 MG/3 ML AMPUL NEB SCH ×4 (08:47→20:34)
[2016-09-23] MEDS ORDERED: ERTAPENEM SODIUM IV SCH (09:58)
[2016-09-23] MEDS ORDERED: NORMAL SALINE IV SCH (09:58)
[2016-09-23] MEDS: TOLTERODINE TARTRATE 1 MG TABLET PO SCH ×2 (10:22→21:55)
[2016-09-23] MEDS: DOCUSATE SODIUM 100 MG CAPSULE PO SCH ×2 (10:23→17:16)
[2016-09-23] MEDS: LISINOPRIL 10 MG TABLET PO SCH ×2 (10:23→21:54)
[2016-09-23] MEDS: AMLODIPINE BESYLATE 10 MG TABLET PO SCH (10:23)
[2016-09-23] MEDS: METFORMIN HCL 500 MG TABLET PO SCH (10:23)
[2016-09-23] MEDS: GUAIFENESIN 600 MG TABLET.SA PO SCH ×2 (10:23→21:54)
[2016-09-23] MEDS: RIFAMPIN 300 MG CAPSULE PO SCH ×2 (10:23→17:17)
[2016-09-23] MEDS: LACTOBACILLUS ACIDOPHILUS 250 MG TAB PO SCH ×2 (10:24→17:17)
[2016-09-23] MEDS: NORMAL SALINE 10 ML SDV (SCHEDULED) IV SCH ×2 (10:24→21:55)
[2016-09-23] MEDS: NYSTATIN TOPICAL POWDER 15 GM TP SCH ×2 (10:24→17:17)
--- NOTE | 2016-09-23 16:51 | PDOC PROGRESS REPORT ---
Subjective Progress Note for:: 09/22/16 Subjective:: Patient reports she is feeling better than yesterday, but does note some shortness of breath. Patient notes that she has been coughing quite a bit and coughing up yellow sputum. She denies any history of asthma or COPD. She does report that breathing treatments make her feel better. Patient does complain of right lower extremity pain. Patient denies fever, chills, chest pain, nausea, vomiting, diarrhea, constipation. Physical Exam Vital Signs: Temp Pulse Resp BP Pulse Ox 98.4 F 85 17 138/63 H 94 09/22/16 04:04 09/22/16 04:04 09/22/16 04:04 09/22/16 04:04 09/22/16 04:04 Intake & Output 09/21/16 09/22/16 09/23/16 06:59 06:59 06:59 Intake Total 460 150 Output Total 450 Balance 460 -300 Exam: GENERAL: No acute distress, morbidly obese HEENT: Conjunctiva clear, nonicteric, moist mucous membranes, no JVD, midline trachea RESPIRATORY: Bilateral end expiratory wheezes, bilateral rhonchi CARDIAC: Regular rate and rhythm, no murmurs/gallops/rubs ABDOMEN: Soft, nondistended, nontender, positive bowel sounds, no rebound, no guarding EXTREMETIES: Lymphedema noted in bilateral lower extremities NEUROLOGIC: Alert, oriented to person/place/time, CN's grossly intact, no focal deficits SKIN: Dressing just changed, and clean dry and intact, hyperkeratosis, hyperpigmentation PSYCH: Normal mood and affect Results Laboratory Results: 09/21/16 03:54 09/21/16 19:38 09/21/16 19:38 Creatinine 1.57 H Est GFR ( Amer) 39 L Est GFR (Non-Af Amer) 33 L 09/18/16 11:15 Leg - Left Gram Stain - Final 09/18/16 11:15 Leg - Left Wound Culture - Final Mrsa (Meth Resis Staph Aureus) Skin Nancy No Anaerobic Organisms 09/18/16 08:04 Clean Catch Midstream Urine Culture - Final Klebsiella Pneumoniae-Esbl 09/21/16 03:54 Creatine Kinase 72 Impressions: Guidance Fluoroscopy 09/21/16 00:00 IMPRESSION: SUCCESSFUL PLACEMENT OF A 5 FR DUAL LUMEN 43 CM PICC IN THE left basilic VEIN. Interventional Vascular Procedure 09/21/16 00:00 IMPRESSION: SUCCESSFUL PLACEMENT OF A 5 FR DUAL LUMEN 43 CM PICC IN THE left basilic VEIN. PICC Line Insertion 09/21/16 00:00 IMPRESSION: SUCCESSFUL PLACEMENT OF A 5 FR DUAL LUMEN 43 CM PICC IN THE left basilic VEIN. Assessment & Plan - Diagnosis (1) UTI (urinary tract infection) Qualifiers: Urinary tract infection type: acute cystitis Hematuria presence: without hematuria Qualified Code(s): N30.00 - Acute cystitis without hematuria Is this a current diagnosis for this admission?: YesPlan: ESBL Klebsiella. Patient on ertapenem, patient was initially given Levaquin, but is resistant to Cipro and suspect that Levaquin will not be far behind in resistance. Patient is currently on day #2/7 for treatment with ertapenem. (2) Cellulitis of left leg Is this a current diagnosis for this admission?: YesPlan: And has grown in culture MRSA. Patient on daptomycin and rifampin for this. Patient does have an exceptionally complex wound and I am concerned about her ability to manage this at home given from super morbid obesity. Will refer patient to LTAC and or rehabilitation facility for wound management. Patient is on day #4 of 10 of antibiotics for the MRSA. (3) Lymphedema Is this a current diagnosis for this admission?: YesPlan: Sean palacios (4) Venous stasis ulcer of left lower extremity Is this a current diagnosis for this admission?: Yes (5) CKD (chronic kidney disease), stage III Is this a current diagnosis for this admission?: YesPlan: Renally adjust medications. Currently stable (6) Diabetes mellitus type 2 in obese Is this a current diagnosis for this admission?: YesPlan: Again, recommend compliance with a diabetic diet. (7) Hyperlipidemia Qualifiers: Hyperlipidemia type: unspecified Qualified Code(s): E78.5 - Hyperlipidemia, unspecified Is this a current diagnosis for this admission?: Yes (8) Hypertension Qualifiers: Hypertension type: essential hypertension Qualified Code(s): I10 - Essential (primary) hypertension Is this a current diagnosis for this admission?: Yes (9) Morbid obesity with BMI of 60.0-69.9, adult Is this a current diagnosis for this admission?: Yes
--- NOTE | 2016-09-23 17:00 | PDOC PROGRESS REPORT ---
Subjective Progress Note for:: 09/23/16 Subjective:: Patient reports her breathing has improved with breathing treatments. Patient denies fever, chills, chest pain, nausea, vomiting, diarrhea, constipation, new onset weakness. Reports she is ready to go to LTAC and improve. Physical Exam Vital Signs: Temp Pulse Resp BP Pulse Ox 98.4 F 82 16 120/57 L 100 09/23/16 07:55 09/23/16 14:00 09/23/16 11:40 09/23/16 07:55 09/23/16 11:40 Intake & Output 09/22/16 09/23/16 09/24/16 06:59 06:59 06:59 Intake Total 150 710 Output Total 450 Balance -300 710 Weight 172 kg Exam: GENERAL: No acute distress, morbidly obese HEENT: Conjunctiva clear, nonicteric, moist mucous membranes, no JVD, midline trachea RESPIRATORY: RLL and EVELIA end expiratory wheezing, occasional rhonchi CARDIAC: Regular rate and rhythm, no murmurs/gallops/rubs, difficult to ascultate due to body habitus ABDOMEN: Soft, nondistended, nontender, positive bowel sounds, no rebound, no guarding EXTREMETIES: Lymphedema noted in bilateral lower extremities NEUROLOGIC: Alert, oriented to person/place/time, CN's grossly intact, no focal deficits SKIN: Dressing just changed, and clean dry and intact, hyperkeratosis, hyperpigmentation PSYCH: Normal mood and affect Results Laboratory Results: 09/22/16 08:41 09/22/16 08:41 09/21/16 03:54 Creatine Kinase 72 Impressions: Guidance Fluoroscopy 09/21/16 00:00 IMPRESSION: SUCCESSFUL PLACEMENT OF A 5 FR DUAL LUMEN 43 CM PICC IN THE left basilic VEIN. Interventional Vascular Procedure 09/21/16 00:00 IMPRESSION: SUCCESSFUL PLACEMENT OF A 5 FR DUAL LUMEN 43 CM PICC IN THE left basilic VEIN. PICC Line Insertion 09/21/16 00:00 IMPRESSION: SUCCESSFUL PLACEMENT OF A 5 FR DUAL LUMEN 43 CM PICC IN THE left basilic VEIN. Chest X-Ray 09/22/16 00:00 IMPRESSION: NO SIGNIFICANT RADIOGRAPHIC FINDING IN THE CHEST. Assessment & Plan - Diagnosis (1) UTI (urinary tract infection) Qualifiers: Urinary tract infection type: acute cystitis Hematuria presence: without hematuria Qualified Code(s): N30.00 - Acute cystitis without hematuria Is this a current diagnosis for this admission?: YesPlan: ESBL Klebsiella. Patient on ertapenem, patient was initially given Levaquin, but is resistant to Cipro and suspect that Levaquin will not be far behind in resistance. Patient is currently on day #3/7 for treatment with ertapenem. Did discuss with the LTAC and Merrem is an acceptable interchange for this patient. (2) Cellulitis of left leg Is this a current diagnosis for this admission?: YesPlan: And has grown in culture MRSA. Patient on daptomycin and rifampin for this. Patient does have an exceptionally complex wound and I am concerned about her ability to manage this at home given from super morbid obesity. Patient is on day #5 of 14 of antibiotics for the MRSA. Recommend the duration of patient's antibiotic therapy be tailored to her response to wound management given to her at an LTAC. Discussion with LTAC, vancomycin is an acceptable alternative for this patient the AZAR was 1. (3) Lymphedema Is this a current diagnosis for this admission?: Yes (4) Venous stasis ulcer of left lower extremity Is this a current diagnosis for this admission?: Yes (5) CKD (chronic kidney disease), stage III Is this a current diagnosis for this admission?: Yes (6) Diabetes mellitus type 2 in obese Is this a current diagnosis for this admission?: YesPlan: Again, recommend compliance with a diabetic diet. (7) Hyperlipidemia Qualifiers: Hyperlipidemia type: unspecified Qualified Code(s): E78.5 - Hyperlipidemia, unspecified Is this a current diagnosis for this admission?: Yes (8) Hypertension Qualifiers: Hypertension type: essential hypertension Qualified Code(s): I10 - Essential (primary) hypertension Is this a current diagnosis for this admission?: YesPlan: well controlled (9) Morbid obesity with BMI of 60.0-69.9, adult Is this a current diagnosis for this admission?: Yes - Time Time Spent with patient: 25-34 minutes Medications reviewed and adjusted accordingly: Yes Anticipated discharge: Other - ltac Within: when bed available
[2016-09-23] MEDS: DAPTOMYCIN 500 MG in NORMAL SALINE 50 ML IV SCH (17:17)
[2016-09-23] MEDS: ATORVASTATIN CALCIUM 10 MG TABLET PO SCH (21:53)
[2016-09-23] MEDS: ERTAPENEM SODIUM 2 GM in NORMAL SALINE 100 ML IV SCH (21:54)
[2016-09-23] MEDS: SENNOSIDES/DOCUSATE 8.6-50 MG 1 EACH TABLET PO SCH (21:55)
[2016-09-23] MEDS: LORAZEPAM 1 MG TABLET PO PRN (21:55)
[2016-09-24] MEDS: OXYCODONE HCL IR 5 MG TABLET PO PRN ×2 (00:29→14:06)
[2016-09-24] MEDS: GABAPENTIN 300 MG CAPSULE PO SCH ×3 (06:31→22:12)
[2016-09-24] MEDS: TRAMADOL HCL 50 MG TABLET PO PRN ×2 (06:31→22:13)
[2016-09-24] MEDS: HEPARIN SOD (PORCINE) 5,000 UNIT/ML 1 ML SYRINGE SUBCUT SCH ×3 (06:35→22:12)
[2016-09-24] MEDS: IPRATROPIUM/ALBUTEROL 0.5-2.5 MG/3 ML AMPUL NEB SCH ×4 (07:48→19:44)
--- NOTE | 2016-09-24 08:33 | PROGRESS NOTE E ---
Progress Note NAME: SERINA LEE : 1945 AGE: 70Y DATE: 09/24/2016 ROOM: 402 SUBJECTIVE: Patient is still having pains along the left lower leg ulcer site. Dressing was partially removed because of significant pains. The wound on the left lower leg does not show much inflammation at this time, but it is quite tender. There is also minimal swelling. PLAN: Continue with current wound management with Bactrim and Xeroform gauze. She [facility] be [facility] an outpatient basis for possible placement of an Unna boot. She can go back to rehab facility and continue the current wound management for the next 1-2 weeks. DICTATING PHYSICIAN: SHANNA BRUNO M.D. [id number] PHY#: [id number] ID: [id number] JOB#: [id number] ACCT: [id number] cc: >
[2016-09-24] MEDS: METFORMIN HCL 500 MG TABLET PO SCH (09:05)
[2016-09-24] MEDS: DOCUSATE SODIUM 100 MG CAPSULE PO SCH ×2 (09:05→17:37)
[2016-09-24] MEDS: AMLODIPINE BESYLATE 10 MG TABLET PO SCH (09:06)
[2016-09-24] MEDS: BACITRACIN ZINC OINTMENT 15 GM TP SCH (09:06)
[2016-09-24] MEDS: LISINOPRIL 10 MG TABLET PO SCH ×2 (09:06→22:13)
[2016-09-24] MEDS: GUAIFENESIN 600 MG TABLET.SA PO SCH ×2 (09:06→22:12)
[2016-09-24] MEDS: LACTOBACILLUS ACIDOPHILUS 250 MG TAB PO SCH ×2 (09:06→17:37)
[2016-09-24] MEDS: NORMAL SALINE 10 ML SDV (SCHEDULED) IV SCH ×2 (09:07→22:13)
[2016-09-24] MEDS: RIFAMPIN 300 MG CAPSULE PO SCH ×2 (09:08→17:37)
[2016-09-24] MEDS: TOLTERODINE TARTRATE 1 MG TABLET PO SCH ×2 (09:08→22:13)
[2016-09-24] MEDS: NYSTATIN TOPICAL POWDER 15 GM TP SCH ×2 (09:08→17:38)
[2016-09-24] MEDS ORDERED: LEVALBUTEROL HCL NEB 1.25 MG/3 ML AMPUL NEB PRN (09:58)
[2016-09-24] MEDS ORDERED: FUROSEMIDE INJ/PF 20 MG/2 ML SDV IV ONE (11:27)
[2016-09-24] MEDS ORDERED: PREDNISONE 20 MG TABLET PO ONE (12:15)
[2016-09-24 13:38] LABS: ABSOLUTE EOSINOPHILS # (AUTO) 0.4 10^3/uL (0.0-0.6); ABSOLUTE LYMPHOCYTES (AUTO) 3.9 10^3/uL (0.5-4.7); ABSOLUTE MONOCYTES (AUTO) 0.5 10^3/uL (0.1-1.4); ABSOLUTE NEUT (AUTO) 3.4 10^3/uL (1.7-8.2); BASOPHILS % (AUTO) 0.6 % (0-2); EOSINOPHILS % (AUTO) 4.5 % (0-6); HEMATOCRIT 34.1 % (36.0-47.0); HEMOGLOBIN 11.4 g/dL (12.0-15.5); HGB HCT DIFFERENCE 0.1; LYMPHOCYTES % (AUTO) 47.5 % (13-45); MEAN CORPUSCULAR HEMOGLOBIN 27.9 pg (27.0-33.4); MEAN CORPUSCULAR HGB CONC 33.4 g/dL (32.0-36.0); MEAN CORPUSCULAR VOLUME 83 fl (80-97); MONOCYTES % (AUTO) 6.4 % (3-13); RED BLOOD COUNT 4.09 10^6/uL (3.72-5.28); RED CELL DISTRIBUTION WIDTH 15.6 % (11.5-14.0); WHITE BLOOD COUNT 8.3 10^3/uL (4.0-10.5)
[2016-09-24 14:03] LABS: ANION GAP 11 (5-19); BLOOD UREA NITROGEN 39 mg/dL (7-20); CALCIUM 9.3 mg/dL (8.4-10.2); CARBON DIOXIDE 29 mmol/L (22-30); CHLORIDE 98 mmol/L (98-107); CREATININE RESULT 1.36 mg/dL (0.52-1.25); GLUCOSE 123 mg/dL (75-110); POTASSIUM 5.1 mmol/L (3.6-5.0); SODIUM 137.7 mmol/L (137-145)
--- NOTE | 2016-09-24 14:48 | PDOC PROGRESS REPORT ---
Subjective Progress Note for:: 09/24/16 Subjective:: Patient reports her breathing has improved with breathing treatments, but still has some wheezing and demonstrates this for me. Patient denies fever, chills, chest pain, nausea, vomiting, diarrhea, constipation, new onset weakness. She is in the company of her family and dog. Physical Exam Vital Signs: Temp Pulse Resp BP Pulse Ox 98.6 F 79 16 111/56 L 93 09/24/16 03:31 09/24/16 03:31 09/24/16 03:31 09/24/16 03:31 09/24/16 03:31 Intake & Output 09/23/16 09/24/16 09/25/16 06:59 06:59 06:59 Intake Total 710 1781 Balance 710 1781 Weight 172 kg 175.2 kg Exam: GENERAL: No acute distress, super morbidly obese HEENT: Conjunctiva clear, nonicteric, moist mucous membranes, no JVD, midline trachea RESPIRATORY: occasional end expiratory wheezing CARDIAC: Regular rate and rhythm, no murmurs/gallops/rubs, difficult to ascultate due to body habitus ABDOMEN: Soft, nondistended, nontender, positive bowel sounds, no rebound, no guarding EXTREMETIES: Lymphedema noted in bilateral lower extremities NEUROLOGIC: Alert, oriented to person/place/time, CN's grossly intact, no focal deficits SKIN: Dressing just changed, and clean dry and intact, hyperkeratosis, hyperpigmentation PSYCH: Normal mood and affect Results Laboratory Results: 09/22/16 08:41 09/22/16 08:41 09/21/16 03:54 Creatine Kinase 72 Impressions: Guidance Fluoroscopy 09/21/16 00:00 IMPRESSION: SUCCESSFUL PLACEMENT OF A 5 FR DUAL LUMEN 43 CM PICC IN THE left basilic VEIN. Interventional Vascular Procedure 09/21/16 00:00 IMPRESSION: SUCCESSFUL PLACEMENT OF A 5 FR DUAL LUMEN 43 CM PICC IN THE left basilic VEIN. PICC Line Insertion 09/21/16 00:00 IMPRESSION: SUCCESSFUL PLACEMENT OF A 5 FR DUAL LUMEN 43 CM PICC IN THE left basilic VEIN. Chest X-Ray 09/22/16 00:00 IMPRESSION: NO SIGNIFICANT RADIOGRAPHIC FINDING IN THE CHEST. Assessment & Plan - Diagnosis (1) UTI (urinary tract infection) Qualifiers: Urinary tract infection type: acute cystitis Hematuria presence: without hematuria Qualified Code(s): N30.00 - Acute cystitis without hematuria Is this a current diagnosis for this admission?: YesPlan: ESBL Klebsiella. Patient on ertapenem, patient was initially given Levaquin, but is resistant to Cipro and suspect that Levaquin will not be far behind in resistance. Patient is currently on day #4/7 for treatment with ertapenem. Did discuss with the LTAC and Merrem is an acceptable interchange for this patient. (2) Cellulitis of left leg Is this a current diagnosis for this admission?: YesPlan: And has grown in culture MRSA. Patient on daptomycin and rifampin for this. Patient does have an exceptionally complex wound and I am concerned about her ability to manage this at home given from super morbid obesity. Patient is on day #6 of 14 of antibiotics for the MRSA. Recommend the duration of patient's antibiotic therapy be tailored to her response to wound management given to her at an LTAC. Need additional 1-2 weeks of antibiotics for this. Discussion with LTAC, vancomycin is an acceptable alternative for this patient the AZAR was 1. (3) Lymphedema Is this a current diagnosis for this admission?: YesPlan: Sean palacios (4) Venous stasis ulcer of left lower extremity Is this a current diagnosis for this admission?: Yes (5) CKD (chronic kidney disease), stage III Is this a current diagnosis for this admission?: Yes (6) Diabetes mellitus type 2 in obese Is this a current diagnosis for this admission?: YesPlan: Again, recommend compliance with a diabetic diet. Metformin as patient is having morning hypoglycemia. (7) Hyperlipidemia Qualifiers: Hyperlipidemia type: unspecified Qualified Code(s): E78.5 - Hyperlipidemia, unspecified Is this a current diagnosis for this admission?: Yes (8) Hypertension Qualifiers: Hypertension type: essential hypertension Qualified Code(s): I10 - Essential (primary) hypertension Is this a current diagnosis for this admission?: Yes (9) Morbid obesity with BMI of 60.0-69.9, adult Is this a current diagnosis for this admission?: Yes - Time Time Spent with patient: 35 or more minutes Medications reviewed and adjusted accordingly: Yes Anticipated discharge: Other Within: when bed available
[2016-09-24] MEDS: DAPTOMYCIN 500 MG in NORMAL SALINE 50 ML IV SCH (17:37)
[2016-09-24] MEDS: PREDNISONE 20 MG TABLET PO SCH (17:38)
[2016-09-24] MEDS: ATORVASTATIN CALCIUM 10 MG TABLET PO SCH (22:12)
[2016-09-24] MEDS: LORAZEPAM 1 MG TABLET PO PRN (22:13)
[2016-09-24] MEDS: SENNOSIDES/DOCUSATE 8.6-50 MG 1 EACH TABLET PO SCH (22:13)
[2016-09-24] MEDS: ERTAPENEM SODIUM 2 GM in NORMAL SALINE 100 ML IV SCH (22:13)
[2016-09-25] MEDS: OXYCODONE HCL IR 5 MG TABLET PO PRN (03:07)
[2016-09-25] MEDS: HEPARIN SOD (PORCINE) 5,000 UNIT/ML 1 ML SYRINGE SUBCUT SCH ×3 (06:32→23:36)
[2016-09-25] MEDS: GABAPENTIN 300 MG CAPSULE PO SCH ×3 (06:32→23:38)
[2016-09-25] MEDS: IPRATROPIUM/ALBUTEROL 0.5-2.5 MG/3 ML AMPUL NEB SCH (08:07)
[2016-09-25] MEDS: NYSTATIN TOPICAL POWDER 15 GM TP SCH (09:25)
[2016-09-25] MEDS: BACITRACIN ZINC OINTMENT 15 GM TP SCH (09:26)
[2016-09-25] MEDS: TOLTERODINE TARTRATE 1 MG TABLET PO SCH ×2 (09:26→23:51)
[2016-09-25] MEDS: RIFAMPIN 300 MG CAPSULE PO SCH ×2 (09:26→17:51)
[2016-09-25] MEDS: AMLODIPINE BESYLATE 10 MG TABLET PO SCH (09:27)
[2016-09-25] MEDS: PREDNISONE 20 MG TABLET PO SCH ×2 (09:27→17:48)
[2016-09-25] MEDS: DOCUSATE SODIUM 100 MG CAPSULE PO SCH ×2 (09:27→17:48)
[2016-09-25] MEDS: LISINOPRIL 10 MG TABLET PO SCH (09:28)
[2016-09-25] MEDS: GUAIFENESIN 600 MG TABLET.SA PO SCH ×2 (09:28→23:37)
[2016-09-25] MEDS: NORMAL SALINE 10 ML SDV (SCHEDULED) IV SCH (09:29)
[2016-09-25] MEDS: LACTOBACILLUS ACIDOPHILUS 250 MG TAB PO SCH ×2 (09:32→17:48)
[2016-09-25] MEDS ORDERED: IPRATROPIUM/ALBUTEROL 0.5-2.5 MG/3 ML AMPUL NEB PRN (10:31)
[2016-09-25] MEDS ORDERED: FUROSEMIDE INJ/PF 40 MG/4 ML SDV IV ONE (11:00)
--- NOTE | 2016-09-25 15:00 | PDOC TRANSFER SUMMARY ---
General Admission Date/PCP: 09/18/16 04:13 Admission Date: 09/18/16 Transfer Date: 09/25/16 Accepting Facility: Other (Comments) - [facility] Resuscitation Status: Full Code - Transfer Diagnosis (1) Cellulitis of left leg Is this a current diagnosis for this admission?: Yes (2) UTI (urinary tract infection) Is this a current diagnosis for this admission?: Yes (4) Lymphedema Is this a current diagnosis for this admission?: Yes (5) Venous stasis ulcer of left lower extremity Is this a current diagnosis for this admission?: Yes (6) CKD (chronic kidney disease), stage III Is this a current diagnosis for this admission?: Yes (7) Diabetes mellitus type 2 in obese Is this a current diagnosis for this admission?: Yes (8) Hyperlipidemia Is this a current diagnosis for this admission?: Yes (9) Hypertension Is this a current diagnosis for this admission?: Yes (10) Morbid obesity with BMI of 60.0-69.9, adult Is this a current diagnosis for this admission?: Yes - Transfer Medications Home Medications: Amlodipine Besylate [Norvasc 10 mg Tablet] 10 mg PO DAILY 09/18/16 Atorvastatin Calcium [Lipitor 10 mg Tablet] 10 mg PO QHS 09/18/16 Celecoxib [Celebrex] 200 mg PO DAILY 09/18/16 Ergocalciferol (Vitamin D2) [Vitamin D2] 50,000 unit PO [id number] 09/18/16 Gabapentin [Neurontin 300 mg Capsule] 300 mg PO Q8HP PRN 09/18/16 Hydrochlorothiazide 25 mg PO DAILY 09/18/16 Lisinopril [Prinivil 10 mg Tablet] 10 mg PO DAILY 09/18/16 Lorazepam [Ativan 1 mg Tablet] 1 mg PO Q8HP PRN 09/18/16 Metformin HCl [Glucophage] 500 mg PO DAILY 09/18/16 Oxycodone HCl/Acetaminophen [Oxycodone-Acetaminophen 5-325] 1 tab PO Q6HP PRN Tramadol HCl [Ultram 50 mg Tablet] 50 mg PO Q8HP PRN 09/18/16 Transfer Medications: Current Medications Acetaminophen (Tylenol 325 Mg Tablet) 650 mg PO Q8HP PRN PRN Reason: FOR PAIN OR TEMP Stop: 10/18/16 03:23 Last Admin: 09/18/16 03:34 Dose: 650 mg Albuterol/Ipratropium (Duoneb 3 Ml Ampul) 3 ml NEB RTQ4HP PRN PRN Reason: WHEEZING Stop: 10/25/16 10:30 Amlodipine Besylate (Norvasc 10 Mg Tablet) 10 mg PO DAILY RAPHAEL Stop: 10/19/16 09:59 Last Admin: 09/25/16 09:27 Dose: 10 mg Atorvastatin Calcium (Lipitor 10 Mg Tablet) 10 mg PO QHS RAPHAEL Stop: 10/18/16 21:59 Last Admin: 09/24/16 22:12 Dose: 10 mg Bacitracin (Bacitracin Oint 15 Gm) 1 applic TP DAILY [facility] Stop: 10/01/16 09:59 Last Admin: 09/25/16 09:26 Dose: 1 applic Docusate Sodium (Colace 100 Mg Capsule) 100 mg PO BID [facility] Stop: 10/18/16 09:59 Last Admin: 09/25/16 09:27 Dose: 100 mg Ergocalciferol (Drisdol 50,000 Unit (1.25mg) Capsule) 50,000 unit PO [id number]@ 1000 [facility] Stop: 11/15/16 09:59 Gabapentin (Neurontin 300 Mg Capsule) 300 mg PO Q8 [facility] Stop: 10/21/16 13:59 Last Admin: 09/25/16 14:48 Dose: 300 mg Guaifenesin (Mucinex Sr 600 Mg Tablet.Sa) 600 mg PO Q12 [facility] Stop: 10/22/16 21:59 Last Admin: 09/25/16 09:28 Dose: 600 mg Heparin Sodium (Porcine) (Heparin Inj 5,000 Units/Ml 1 Ml Syringe) 5,000 unit SUBCUT Q8 [facility] Stop: 10/18/16 05:59 Last Admin: 09/25/16 14:48 Dose: 5,000 unit Heparin Sodium (Porcine) (Heparin Flush 10 Unit/Ml 5 Ml Disp.Syrg) 30 unit IV Q12 [facility] Stop: 10/21/16 21:59 Last Admin: 09/25/16 09:28 Dose: 30 unit Heparin Sodium (Porcine) (Heparin Flush 10 Unit/Ml 5 Ml Disp.Syrg) 30 unit IV .AFTER EACH USE PRN Stop: 10/21/16 17:45 Daptomycin 500 mg/ Sodium (Chloride) 50 mls @ 100 mls/hr IV QPM [facility]EL Stop: 09/28/16 17:59 Last Admin: 09/24/16 17:37 Dose: 500 mg Ertapenem 2 gm/ Sodium (Chloride) 100 mls @ 100 mls/hr IV QHS [facility]EL Stop: 09/30/16 21:59 Last Admin: 09/24/16 22:13 Dose: 2 gm Lactobacillus Acidophilus (Bacid 250 Mg Tablet) 250 mg PO BID [facility]EL Stop: 10/22/16 17:59 Last Admin: 09/25/16 09:32 Dose: 250 mg Levalbuterol HCl (Xopenex Neb 1.25 Mg/3 Ml Ampul) 1.25 mg NEB RTQ2HP PRN PRN Reason: SHORTNESS OF BREATH/WHEEZING Stop: 10/24/16 09:57 Lisinopril (Prinivil 10 Mg Tablet) 10 mg PO Q12 [facility] Stop: 10/18/16 21:59 Last Admin: 09/25/16 09:28 Dose: 10 mg Nystatin (Mycostatin Topical Powder 15 Gm) 1 applic TP BID [facility]EL Stop: 09/25/16 17:59 Last Admin: 09/25/16 09:25 Dose: 1 applic Pharmacy Profile Note (Medication Communication Order) 1 each .DOSE ADJUST [facility] Stop: 10/18/16 04:14 Prednisone (Deltasone 20 Mg Tablet) 20 mg PO BID RAPHAEL Stop: 10/24/16 17:59 Last Admin: 09/25/16 09:27 Dose: 20 mg Rifampin (Rifadin 300 Mg Capsule) 300 mg PO BID [facility]EL Stop: 09/28/16 21:59 Last Admin: 09/25/16 09:26 Dose: 300 mg Senna/Docusate Sodium (Senna Plus Tablet) 2 each PO QHS RAPHAEL Stop: 10/21/16 21:59 Last Admin: 09/24/16 22:13 Dose: 2 each Sodium Chloride (Saline Flush 2.5 Ml Monoject Prefil Syrin) 2.5 ml IV Q8 [facility] Stop: 10/18/16 05:59 Last Admin: 09/25/16 06:33 Dose: Not Given Sodium Chloride (Nacl 0.9% Inj/Pf 10 Ml Sdv) 10 ml IV Q12 [facility] Stop: 10/21/16 21:59 Last Admin: 09/25/16 09:29 Dose: 10 ml Sodium Chloride (Nacl 0.9% Inj/Pf 10 Ml Sdv) 10 ml IV .AFTER EACH USE PRN Stop: 10/21/16 17:45 Tolterodine Tartrate (Detrol 1 Mg Tablet) 2 mg PO Q12 [facility]EL Stop: 10/19/16 21:59 Last Admin: 09/25/16 09:26 Dose: 2 mg Tramadol HCl (Ultram 50 Mg Tablet) 50 mg PO Q6HP PRN Stop: 10/02/16 10:45 - Allergies Allergies/Adverse Reactions: adhesive [Adhesive] Allergy (Verified 06/23/16 09:02) No Known Drug Allergies Allergy (Verified 06/23/16 10:24) Hospital Course Hospital Course: Patient is a 70-year-old female who presented to the hospital with left leg wound patient has a history of MRSA and was found to again have MRSA infection of this wound as well as a urinary tract infection with VRE. Patient was started initially on vancomycin and cefepime patient has a history of Pseudomonas as well. Patient was transitioned to daptomycin and ertapenem. Course of her stay, patient developed a cough which was treated with prednisone and breathing treatments. Repeat chest x-ray did not reveal a pneumonia. Patient's lymphedema was treated with pressure wrapping and Lasix. Patient had some problems with hypoglycemia and metformin was stopped. Was encouraged to use her CPAP while sleeping. Though her use of this remains inconsistent. Patient has had a PICC line placed for IV antibiotics. But due to the complex nature of her wound and her limited mobility due to body habitus, but the patient was appropriate for LTAC placement. Patient was accepted, and is awaiting her bed assignment. She is stable to be discharged. Physical Exam Vital Signs: Temp Pulse Resp BP Pulse Ox 98.1 F 82 18 106/47 L 94 09/25/16 12:00 09/25/16 12:00 09/25/16 12:00 09/25/16 12:00 09/25/16 12:00 Intake & Output 09/24/16 09/25/16 09/26/16 06:59 06:59 06:59 Intake Total 1781 1435 Balance 1781 1435 Weight 175.2 kg Exam: GENERAL: No acute distress, morbidly obese HEENT: Conjunctiva clear, nonicteric, moist mucous membranes, no JVD, midline trachea RESPIRATORY: occasional end expiratory wheezing CARDIAC: Regular rate and rhythm, no murmurs/gallops/rubs, difficult to ascultate due to body habitus ABDOMEN: Soft, nondistended, nontender, positive bowel sounds, no rebound, no guarding EXTREMETIES: Lymphedema noted in bilateral lower extremities NEUROLOGIC: Alert, oriented to person/place/time, CN's grossly intact, no focal deficits SKIN: Dressing just changed, and clean, dry and intact, hyperkeratosis, hyperpigmentation PSYCH: Normal mood and affect Results Laboratory Results: 09/24/16 13:07 09/24/16 13:07 09/21/16 03:54 Creatine Kinase 72 Impressions: Guidance Fluoroscopy 09/21/16 00:00 IMPRESSION: SUCCESSFUL PLACEMENT OF A 5 FR DUAL LUMEN 43 CM PICC IN THE left basilic VEIN. Interventional Vascular Procedure 09/21/16 00:00 IMPRESSION: SUCCESSFUL PLACEMENT OF A 5 FR DUAL LUMEN 43 CM PICC IN THE left basilic VEIN. PICC Line Insertion 09/21/16 00:00 IMPRESSION: SUCCESSFUL PLACEMENT OF A 5 FR DUAL LUMEN 43 CM PICC IN THE left basilic VEIN. Chest X-Ray 09/22/16 00:00 IMPRESSION: NO SIGNIFICANT RADIOGRAPHIC FINDING IN THE CHEST. Plan Time Spent: Less than 30 Minutes
--- NOTE | 2016-09-25 16:48 | PROGRESS NOTE E ---
Progress Note NAME: SERINA LEE : 1945 AGE: 70Y DATE: 09/25/2016 ROOM: 402 SUBJECTIVE: The patient claims that the pains in her left leg are better. OBJECTIVE: The wound appears to be unchanged. There is a little bit more swelling of the left lower leg. PLAN: I agree with transferring her to a long-term care facility but continue with the current wound management and eventually refer her [facility] for further wound management. DICTATING PHYSICIAN: SHANNA BRUNO M.D. [id number] PHY#: [id number] ID: [id number] JOB#: [id number] ACCT: [id number] cc: >
[2016-09-25] MEDS: TRAMADOL HCL 50 MG TABLET PO PRN (17:47)
[2016-09-25] MEDS: DAPTOMYCIN 500 MG in NORMAL SALINE 50 ML IV SCH (17:51)
[2016-09-25] MEDS ORDERED: FUROSEMIDE 40 MG TABLET PO SCH (18:00)
[2016-09-25] MEDS: SENNOSIDES/DOCUSATE 8.6-50 MG 1 EACH TABLET PO SCH (23:37)
[2016-09-25] MEDS: ATORVASTATIN CALCIUM 10 MG TABLET PO SCH (23:38)
[2016-09-25] MEDS: ERTAPENEM SODIUM 2 GM in NORMAL SALINE 100 ML IV SCH (23:40)
[2016-09-26] MEDS: TRAMADOL HCL 50 MG TABLET PO PRN ×2 (01:04→20:30)
[2016-09-26] MEDS: LISINOPRIL 10 MG TABLET PO SCH ×2 (01:59→09:21)
[2016-09-26] MEDS: NORMAL SALINE 10 ML SDV (SCHEDULED) IV SCH ×3 (01:59→23:20)
[2016-09-26] MEDS ORDERED: OXYCODONE HCL IR 5 MG TABLET PO SCH (05:15)
[2016-09-26] MEDS: GABAPENTIN 300 MG CAPSULE PO SCH ×3 (05:19→23:16)
[2016-09-26] MEDS: HEPARIN SOD (PORCINE) 5,000 UNIT/ML 1 ML SYRINGE SUBCUT SCH ×3 (05:21→23:15)
[2016-09-26] MEDS: RIFAMPIN 300 MG CAPSULE PO SCH ×2 (09:19→17:56)
[2016-09-26] MEDS: TOLTERODINE TARTRATE 1 MG TABLET PO SCH ×2 (09:19→23:17)
[2016-09-26] MEDS: AMLODIPINE BESYLATE 10 MG TABLET PO SCH (09:20)
[2016-09-26] MEDS: PREDNISONE 20 MG TABLET PO SCH ×2 (09:20→17:56)
[2016-09-26] MEDS: GUAIFENESIN 600 MG TABLET.SA PO SCH ×2 (09:20→23:17)
[2016-09-26] MEDS: LACTOBACILLUS ACIDOPHILUS 250 MG TAB PO SCH ×2 (09:20→17:56)
[2016-09-26] MEDS: DOCUSATE SODIUM 100 MG CAPSULE PO SCH ×2 (09:20→17:56)
[2016-09-26] MEDS: BACITRACIN ZINC OINTMENT 15 GM TP SCH (09:23)
[2016-09-26] MEDS: OXYCODONE-ACETAMINOPHEN 5-325 MG TABLET PO PRN ×2 (15:12→21:26)
--- NOTE | 2016-09-26 17:41 | PDOC PROGRESS REPORT ---
Subjective Progress Note for:: 09/26/16 Subjective:: Patient complains of lower extremity pain. Patient reports her breathing has improved. Patient denies fever, chills, chest pain, nausea, vomiting, diarrhea, constipation, new onset weakness. Physical Exam Vital Signs: Temp Pulse Resp BP Pulse Ox 97.9 F 74 21 H 119/63 95 09/26/16 03:08 09/26/16 03:08 09/26/16 03:08 09/26/16 03:08 09/26/16 03:08 Intake & Output 09/25/16 09/26/16 09/27/16 06:59 06:59 06:59 Intake Total 1435 1830 Balance 1435 1830 Weight 175 kg Exam: GENERAL: No acute distress, super morbidly obese HEENT: Conjunctiva clear, nonicteric, moist mucous membranes, no JVD, midline trachea RESPIRATORY: rare end expiratory wheezing CARDIAC: Regular rate and rhythm, no murmurs/gallops/rubs, difficult to ascultate due to body habitus ABDOMEN: Soft, nondistended, nontender, positive bowel sounds, no rebound, no guarding EXTREMETIES: Lymphedema noted in bilateral lower extremities NEUROLOGIC: Alert, oriented to person/place/time, CN's grossly intact, no focal deficits SKIN: Dressing just changed, and clean dry and intact, hyperkeratosis, hyperpigmentation PSYCH: Normal mood and affect Results Laboratory Results: 09/24/16 13:07 09/24/16 13:07 09/21/16 03:54 Creatine Kinase 72 Impressions: Guidance Fluoroscopy 09/21/16 00:00 IMPRESSION: SUCCESSFUL PLACEMENT OF A 5 FR DUAL LUMEN 43 CM PICC IN THE left basilic VEIN. Interventional Vascular Procedure 09/21/16 00:00 IMPRESSION: SUCCESSFUL PLACEMENT OF A 5 FR DUAL LUMEN 43 CM PICC IN THE left basilic VEIN. PICC Line Insertion 09/21/16 00:00 IMPRESSION: SUCCESSFUL PLACEMENT OF A 5 FR DUAL LUMEN 43 CM PICC IN THE left basilic VEIN. Chest X-Ray 09/22/16 00:00 IMPRESSION: NO SIGNIFICANT RADIOGRAPHIC FINDING IN THE CHEST. Assessment & Plan - Diagnosis (1) Cellulitis of left leg Is this a current diagnosis for this admission?: YesPlan: And has grown in culture MRSA. Patient on daptomycin and rifampin for this. Patient does have an exceptionally complex wound and I am concerned about her ability to manage this at home given from super morbid obesity. Patient is on day #7 of 21 of antibiotics for the MRSA. Recommend the duration of patient's antibiotic therapy be tailored to her response to wound management given to her at an LTAC. Discussion with LTAC, vancomycin is an acceptable alternative for this patient the AZAR was 1. (2) UTI (urinary tract infection) Qualifiers: Urinary tract infection type: acute cystitis Hematuria presence: without hematuria Qualified Code(s): N30.00 - Acute cystitis without hematuria Is this a current diagnosis for this admission?: YesPlan: ESBL Klebsiella. Patient on ertapenem, patient was initially given Levaquin, but is resistant to Cipro and suspect that Levaquin will not be far behind in resistance. Patient is currently on day #5/7 for treatment with ertapenem. Did discuss with the LTAC and Merrem is an acceptable interchange for this patient. (3) Bronchitis Is this a current diagnosis for this admission?: YesPlan: Prednisone and prn breathing treatments (4) Lymphedema Is this a current diagnosis for this admission?: YesPlan: Unna boot (5) Venous stasis ulcer of left lower extremity Is this a current diagnosis for this admission?: Yes (6) CKD (chronic kidney disease), stage III Is this a current diagnosis for this admission?: YesPlan: Renally adjust medications. Currently stable (7) Diabetes mellitus type 2 in obese Is this a current diagnosis for this admission?: Yes (8) Hyperlipidemia Qualifiers: Hyperlipidemia type: unspecified Qualified Code(s): E78.5 - Hyperlipidemia, unspecified Is this a current diagnosis for this admission?: Yes (9) Hypertension Qualifiers: Hypertension type: essential hypertension Qualified Code(s): I10 - Essential (primary) hypertension Is this a current diagnosis for this admission?: YesPlan: well controlled (10) Morbid obesity with BMI of 60.0-69.9, adult Is this a current diagnosis for this admission?: Yes - Time Time Spent with patient: 25-34 minutes Medications reviewed and adjusted accordingly: Yes Anticipated discharge: Other - ltac Within: when bed available
[2016-09-26] MEDS: DAPTOMYCIN 500 MG in NORMAL SALINE 50 ML IV SCH (17:57)
[2016-09-26] MEDS: ERTAPENEM SODIUM 2 GM in NORMAL SALINE 100 ML IV SCH (21:26)
[2016-09-26] MEDS: ATORVASTATIN CALCIUM 10 MG TABLET PO SCH (23:16)
[2016-09-26] MEDS: SENNOSIDES/DOCUSATE 8.6-50 MG 1 EACH TABLET PO SCH (23:18)
[2016-09-27] MEDS: LISINOPRIL 10 MG TABLET PO SCH ×2 (00:45→10:45)
[2016-09-27] MEDS ORDERED: FLUTICASONE NASAL SPRAY 50 MCG/SPRY 120 SPRAY/16 GM ONE (00:55)
[2016-09-27] MEDS: FLUTICASONE NASAL SPRAY 50 MCG/SPRY 120 SPRAY/16 GM NASL SCH ×2 (01:39→10:45)
[2016-09-27] MEDS: HEPARIN SOD (PORCINE) 5,000 UNIT/ML 1 ML SYRINGE SUBCUT SCH ×2 (06:40→14:05)
[2016-09-27] MEDS: GABAPENTIN 300 MG CAPSULE PO SCH ×2 (06:42→14:05)
[2016-09-27] MEDS: OXYCODONE-ACETAMINOPHEN 5-325 MG TABLET PO PRN ×2 (06:42→12:02)
[2016-09-27] MEDS: TRAMADOL HCL 50 MG TABLET PO PRN (08:25)
[2016-09-27 10:39] VITALS: BP 105/61
[2016-09-27] MEDS: BACITRACIN ZINC OINTMENT 15 GM TP SCH (10:43)
[2016-09-27] MEDS: TOLTERODINE TARTRATE 1 MG TABLET PO SCH (10:43)
[2016-09-27] MEDS: RIFAMPIN 300 MG CAPSULE PO SCH (10:43)
[2016-09-27] MEDS: DOCUSATE SODIUM 100 MG CAPSULE PO SCH (10:44)
[2016-09-27] MEDS: LACTOBACILLUS ACIDOPHILUS 250 MG TAB PO SCH (10:44)
[2016-09-27] MEDS: NORMAL SALINE 10 ML SDV (SCHEDULED) IV SCH (10:44)
[2016-09-27] MEDS: GUAIFENESIN 600 MG TABLET.SA PO SCH (10:44)
[2016-09-27] MEDS: PREDNISONE 20 MG TABLET PO SCH (10:44)
[2016-09-27] MEDS: AMLODIPINE BESYLATE 10 MG TABLET PO SCH (10:45)
--- NOTE | 2016-09-27 11:08 | PDOC PROGRESS REPORT ---
Subjective Progress Note for:: 09/27/16 Subjective:: This is an addendum to transfer summary from 09/25/16. No changes in discharge diagnosis or medications. Patient reports her breathing has improved. Patient denies fever, chills, chest pain, nausea, vomiting, diarrhea, constipation, new onset weakness. Physical Exam Vital Signs: Temp Pulse Resp BP Pulse Ox 98.6 F 84 18 105/61 97 09/27/16 08:00 09/27/16 08:00 09/27/16 08:00 09/27/16 08:00 09/27/16 08:00 Intake & Output 09/26/16 09/27/16 09/28/16 06:59 06:59 06:59 Intake Total 1830 1420 Balance 1830 1420 Weight 175 kg 175 kg Exam: GENERAL: No acute distress, super morbidly obese HEENT: Conjunctiva clear, nonicteric, moist mucous membranes, no JVD, midline trachea RESPIRATORY: CTAB CARDIAC: Regular rate and rhythm, no murmurs/gallops/rubs, difficult to ascultate due to body habitus ABDOMEN: Soft, nondistended, nontender, positive bowel sounds, no rebound, no guarding EXTREMETIES: Lymphedema noted in bilateral lower extremities NEUROLOGIC: Alert, oriented to person/place/time, CN's grossly intact, no focal deficits SKIN: Dressing just changed, and clean dry and intact, hyperkeratosis, hyperpigmentation PSYCH: Normal mood and affect Results Laboratory Results: 09/24/16 13:07 09/24/16 13:07 09/21/16 03:54 Creatine Kinase 72 Impressions: Guidance Fluoroscopy 09/21/16 00:00 IMPRESSION: SUCCESSFUL PLACEMENT OF A 5 FR DUAL LUMEN 43 CM PICC IN THE left basilic VEIN. Interventional Vascular Procedure 09/21/16 00:00 IMPRESSION: SUCCESSFUL PLACEMENT OF A 5 FR DUAL LUMEN 43 CM PICC IN THE left basilic VEIN. PICC Line Insertion 09/21/16 00:00 IMPRESSION: SUCCESSFUL PLACEMENT OF A 5 FR DUAL LUMEN 43 CM PICC IN THE left basilic VEIN. Chest X-Ray 09/22/16 00:00 IMPRESSION: NO SIGNIFICANT RADIOGRAPHIC FINDING IN THE CHEST. Assessment & Plan - Diagnosis (1) Cellulitis of left leg Is this a current diagnosis for this admission?: Yes (2) UTI (urinary tract infection) Qualifiers: Urinary tract infection type: acute cystitis Hematuria presence: without hematuria Qualified Code(s): N30.00 - Acute cystitis without hematuria Is this a current diagnosis for this admission?: Yes (3) Bronchitis Is this a current diagnosis for this admission?: Yes (4) Lymphedema Is this a current diagnosis for this admission?: Yes (5) Venous stasis ulcer of left lower extremity Is this a current diagnosis for this admission?: Yes (6) CKD (chronic kidney disease), stage III Is this a current diagnosis for this admission?: Yes (7) Diabetes mellitus type 2 in obese Is this a current diagnosis for this admission?: Yes (8) Hyperlipidemia Qualifiers: Hyperlipidemia type: unspecified Qualified Code(s): E78.5 - Hyperlipidemia, unspecified Is this a current diagnosis for this admission?: Yes (9) Hypertension Qualifiers: Hypertension type: essential hypertension Qualified Code(s): I10 - Essential (primary) hypertension Is this a current diagnosis for this admission?: Yes (10) Morbid obesity with BMI of 60.0-69.9, adult Is this a current diagnosis for this admission?: Yes - Time Time Spent with patient: 25-34 minutes Medications reviewed and adjusted accordingly: Yes Anticipated discharge: Other
[2016-10-16] MEDS ORDERED: ERGOCALCIFEROL (VITAMIN D2) 50000 UNIT (1.25 MG) CAPSULE PO SCH (10:00)
== END 2016-09-27 16:10 | DRG 603 ==
LOC: ER 19:11 → EH 23:55 → UNDOADMIN 23:55 → EH 09-18 01:33 → 4N 09-18 01:33 → EH 09-18 04:13
PROVIDERS: ADMIT Family Medicine; ATTEND Family Medicine
PROC: 02HV33Z Insertion of Infusion Device into Superior Vena Cava, Percutaneous Approach (ICD-10-PCS; principal; 2016-09-21)
PROC: B5181ZA Fluoroscopy of Superior Vena Cava using Low Osmolar Contrast, Guidance (ICD-10-PCS; 2016-09-21)
PROC: B548ZZA Ultrasonography of Superior Vena Cava, Guidance (ICD-10-PCS; 2016-09-21)
DX: L03.116 Cellulitis of left lower limb (principal); L97.329 Non-pressure chronic ulcer of left ankle with unspecified severity; N30.00 Acute cystitis without hematuria; Z68.44 Body mass index [BMI] 60.0-69.9, adult; B95.62 Methicillin resistant Staphylococcus aureus infection as the cause of diseases classified elsewhere; Z86.14 Personal history of Methicillin resistant Staphylococcus aureus infection; I87.8 Other specified disorders of veins; J40 Bronchitis, not specified as acute or chronic; I12.9 Hypertensive chronic kidney disease with stage 1 through stage 4 chronic kidney disease, or unspecified chronic kidney disease; N18.3 Chronic kidney disease, stage 3 (moderate); E11.22 Type 2 diabetes mellitus with diabetic chronic kidney disease; E66.01 Morbid (severe) obesity due to excess calories; E78.5 Hyperlipidemia, unspecified; Z79.84 Long term (current) use of oral hypoglycemic drugs; Z79.899 Other long term (current) drug therapy
CPT/HCPCS: 36415; 36569; 51701; 71020; 76937; 77001; 80048; 80053; 80202; 81001; 82550; 82565; 82962; 83735; 85025; 85610; 85730; 87040; 87070; 87075; 87077; 87086; 87088; 87186; 87205; 94640; 94660; 96365; 96372; 99284; G8978-GP; G8979-GP; G8980-GP; J0692; J0696; J0878; J1170; J1200; J1335; J1642; J1644; J1940; J2270; J3370; J3490; J7030; J7060; J7512; J7620

== ENCOUNTER 2016-10-20 23:21 | Emergency (ER) | payer MEDICARE, OTHER ==
[2016-10-20] MEDS ORDERED: HYDROMORPHONE HCL INJ/PF 2 MG/ML AMPULE IV ONE (23:52)
--- NOTE | 2016-10-20 23:59 | ER Document Report ---
ED General - General Chief Complaint: Leg Pain Stated Complaint: LEG PAIN Time Seen by Provider: 10/20/16 23:39 Notes: Patient is a 72-year-old female presents with complaint of bilateral leg pain. She was moved here for several days. She was discharged approximately 2 weeks ago. She is discharged to long-term care facility. At time of discharge she was diagnosed with MRSA infection and a venous stasis ulcer of her left leg. She was discharged with rifampin and ertapenem. She says she is doing well for long-term care facility. She says antibiotics are finished. She said there became an issue with her Medicare coverage and therefore she was discharged home today. As her legs have been worsening and pain. She says only medication she has gabapentin. She says that she is given prescription for her other meds but has been unable to fill them. Denies any fevers. No vomiting. No other complaints at this time. She says she is unsure if her legs are more swollen or more red being that he cannot see her legs. TRAVEL OUTSIDE OF THE [place] IN LAST 30 DAYS: No - Related Data Allergies/Adverse Reactions: adhesive [Adhesive] Allergy (Verified 06/23/16 09:02) No Known Drug Allergies Allergy (Verified 06/23/16 10:24) Past Medical History - Social History Smoking Status: Never Smoker Frequency of alcohol use: None Drug Abuse: None Family History: CAD, Malignancy - Past Medical History Cardiac Medical History: Reports: Hx Hypercholesterolemia, Hx Hypertension, Hx Peripheral Vascular Disease Denies: Hx Congestive Heart Failure, Hx DVT, Hx Heart Attack, Hx Pulmonary Embolism Pulmonary Medical History: Reports: Hx Sleep Apnea Denies: Hx Asthma, Hx COPD Neurological Medical History: Denies: Hx Seizures Endocrine Medical History: Reports: Hx Diabetes Mellitus Type 2. Denies: Hx Diabetes Mellitus Type 1, Hx Hyperthyroidism, Hx Hypothyroidism Renal/ Medical History: Denies: Hx Peritoneal Dialysis GI Medical History: Reports: Hx Gastroesophageal Reflux Disease - Distant history of same; no recent symptoms.. Denies: Hx Cirrhosis, Hx Hepatitis Musculoskeltal Medical History: Reports Hx Arthritis Skin Medical History: Reports Hx Cellulitis, Reports Hx MRSA Psychiatric Medical History: Reports: Hx Depression - Denies suicidal or homicidal ideation. Infectious Medical History: Reports: Hx MRSA - Diagnosed August 2016.. Denies: Hx C-Diff, Hx Hepatitis Past Surgical History: Reports: Hx Orthopedic Surgery - Immunizations Immunizations up to date: No Hx Diphtheria, Pertussis, Tetanus Vaccination: Yes Review of Systems - Review of Systems Notes: My Normal Review Basic REVIEW OF SYSTEMS: CONSTITUTIONAL : Denies fever, chills, or sweats. Denies recent illness. EENT: Denies eye, ear, throat, or mouth pain or symptoms. Denies nasal or sinus congestion. RESPIRATORY: Denies cough, cold, or chest congestion. Denies shortness of breath, difficulty breathing, or wheezing. GASTROINTESTINAL: Denies abdominal pain. Denies nausea, vomiting, or diarrhea. Denies constipation. Last BM: GENITOURINARY: Denies difficulty urinating, painful urination, burning, frequency, or blood in urine. MUSCULOSKELETAL: Denies neck or back pain or joint pain or swelling. SKIN: Redness to bilateral lower legs. Venous stasis ulcer over left lower extremity. NEUROLOGICAL: Denies altered mental status or loss of consciousness. Denies headache. Denies weakness or paralysis or loss of use of either side. Denies problems with gait or speech. Denies sensory or motor loss. ALL OTHER SYSTEMS REVIEWED AND NEGATIVE. Physical Exam - Vital signs Vitals: Temp Pulse BP Pulse Ox 97.6 F 88 146/86 H 98 10/20/16 23:40 10/20/16 23:40 10/20/16 23:40 10/20/16 23:40 - Notes Notes: General Appearance: Well nourished, alert, cooperative, no acute distress, moderate obvious discomfort. Vitals: reviewed, See vital signs table. Head: no swelling or tenderness to the head Eyes: PERRL, EOMI, Conjuctiva clear Mouth: No decreasd moisture Lungs: No wheezing, No rales, No rhonci, No accessory muscle use, good air exchange bilaterally. Heart: Normal rate, Regular rythm, systolic murmur, no rub Abdomen: Normal BS, soft, No rigidity, No abdominal tenderness, No guarding, no rebound, no abdominal masses, no organomegaly Extremities: strength 5/5 in all extremities, good pulses in all extremities, pain to palpation over the area of the ulcer., no edema. Skin: Patient has erythema of the bilateral lower extremities below the knees. She has a large venous stasis ulcer over the lateral aspect of the left lower leg with some surrounding erythema consistent with a chronic venous stasis ulcer. No drainage from the ulcer at this time. Neuro: speech clear, oriented x 3, normal affect, responds appropriately to questions. Course - Re-evaluation Re-evalutation: 10/21/16 02:05 Patient is feeling much improved after the pain medicine. She actually got up and walked around with her cane some. She says that her daughter can pick her up in the morning. She does not feel that the infection is back. I agree with her and that her leg does have some erythema but I think this is chronic from her venous stasis and chronic edema. The ulcer itself is not foul-smelling. He has no purulent drainage. She has no white count no fever. She says that her main concern is pain control. I informed I will prescribe her Percocet until she can follow-up with her primary care doctor. I informed her that she must return to ER immediately if she has worsening pain, fevers, or feels that the redness is spreading on her leg. Patient agrees with plan. Patient will most likely stay in the ER to morning time when her daughter can pick her up. 10/21/16 07:14 - Vital Signs Vital signs: Temp Pulse Resp BP Pulse Ox 97.6 F 93 165/72 H 88 L 10/20/16 23:40 10/21/16 05:27 10/21/16 05:15 10/21/16 05:27 - Laboratory Result Diagrams: 10/21/16 01:17 10/21/16 00:32 Laboratory results interpreted by me: 10/21/16 10/21/16 00:32 01:17 Hgb 11.9 L RDW 18.3 H Chloride 108 H BUN 31 H Est GFR (Non-Af Amer) 56 L Glucose 149 H Discharge - Discharge Clinical Impression: Venous stasis ulcer of left lower extremity Leg pain Qualifiers: Laterality: left Qualified Code(s): M79.605 - Pain in left leg Condition: Good Disposition: HOME, SELF-CARE Instructions: Oral Narcotic Medication ([facility]) Additional Instructions: Please follow up closely with your doctor within the next 5 days. Please return to the ER immediately if you have fevers, abnormal drainage from your wound, increasing redness, or if you have further concerns. Please continue to follow with wound care. Prescriptions: Oxycodone HCl/Acetaminophen [Percocet 5-325 mg Tablet] 1 tab PO Q4H PRN #25 tablet PRN Reason: Referrals: Wound Care [Provider Group] - Follow up in 3-5 days
[2016-10-21 01:16] LABS: ALANINE AMINOTRANSFERASE 38 U/L (9-52); ALBUMIN 3.7 g/dL (3.5-5.0); ALKALINE PHOSPHATASE 66 U/L (38-126); ANION GAP 9 (5-19); ASPARTATE AMINO TRANSFERASE 19 U/L (14-36); BILIRUBIN,DIRECT 0.3 mg/dL (0.0-0.4); BILIRUBIN,TOTAL 0.3 mg/dL (0.2-1.3); BLOOD UREA NITROGEN 31 mg/dL (7-20); CARBON DIOXIDE 25 mmol/L (22-30); CHLORIDE 108 mmol/L (98-107); CREATININE RESULT 0.98 mg/dL (0.52-1.25); GLUCOSE 149 mg/dL (75-110); POTASSIUM 4.8 mmol/L (3.6-5.0); SODIUM 142.2 mmol/L (137-145)
[2016-10-21 01:31] LABS: ABSOLUTE BASOPHILS # (AUTO) 0.1 10^3/uL (0.0-0.2); ABSOLUTE EOSINOPHILS # (AUTO) 0.3 10^3/uL (0.0-0.6); ABSOLUTE LYMPHOCYTES (AUTO) 3.5 10^3/uL (0.5-4.7); ABSOLUTE MONOCYTES (AUTO) 0.6 10^3/uL (0.1-1.4); ABSOLUTE NEUT (AUTO) 5.8 10^3/uL (1.7-8.2); BASOPHILS % (AUTO) 0.9 % (0-2); EOSINOPHILS % (AUTO) 2.8 % (0-6); HEMATOCRIT 37.1 % (36.0-47.0); HEMOGLOBIN 11.9 g/dL (12.0-15.5); HGB HCT DIFFERENCE -1.4; LYMPHOCYTES % (AUTO) 34.4 % (13-45); MEAN CORPUSCULAR HEMOGLOBIN 27.8 pg (27.0-33.4); MEAN CORPUSCULAR HGB CONC 32.2 g/dL (32.0-36.0); MEAN CORPUSCULAR VOLUME 86 fl (80-97); MONOCYTES % (AUTO) 5.5 % (3-13); RED CELL DISTRIBUTION WIDTH 18.3 % (11.5-14.0); SEGMENTED NEUTROPHILS % (AUTO) 56.4 % (42-78); WHITE BLOOD COUNT 10.2 10^3/uL (4.0-10.5)
[2016-10-21] MEDS ORDERED: OXYCODONE-ACETAMINOPHEN 5-325 MG TABLET PO ONE (02:04)
[2016-10-21 06:57] VITALS: BP 165/72
== END 2016-10-21 08:03 | disposition home or self-care (01) ==
LOC: ER 23:21
DX: I87.8 Other specified disorders of veins (principal); M79.604 Pain in right leg; M79.605 Pain in left leg; E78.00 Pure hypercholesterolemia, unspecified; I10 Essential (primary) hypertension; E11.9 Type 2 diabetes mellitus without complications; K21.9 Gastro-esophageal reflux disease without esophagitis; Z86.14 Personal history of Methicillin resistant Staphylococcus aureus infection
CPT/HCPCS: 99283; 96374; 36415; 87040; 85025; 80053; A9270; J1170

== ENCOUNTER → 2016-12-08 | Outpatient (CLI) | payer MEDICARE, OTHER ==
--- NOTE | 2016-12-08 12:28 | RADIOLOGY REPORT (SQ) ---
EXAM DESCRIPTION: VENOUS REFLUX COMPLETED DATE/TIME: 12/08/2016 11:57 am REASON FOR STUDY: ULCER, INSUFFICIENCY L97.222 NON-PRESSURE CHRONIC ULCER OF LEFT CALF W FAT LAYER COMPARISON: Bilateral lower extremity arterial Doppler 12/08/2016 Bilateral lower extremity venous Doppler 08/13/2016 TECHNIQUE: Multiple real-time grayscale sonographic images were obtained for evaluation of the right and left lower extremity. Doppler and duplex evaluation of the venous structures was performed. LIMITATIONS: None. FINDINGS: The right common femoral, superficial femoral, popliteal and infrapopliteal veins are pat ent with normal response to compression and augmentation maneuvers. The left common femoral vein has reflux on Valsalva, 3 seconds in duration. Left superficial femoral , popliteal, and infrapopliteal veins are patent with normal response to compression and augmentation maneuvers. Right greater saphenous vein: No Right small saphenous vein: No Left greater saphenous vein: Yes, 4.4 seconds in the proximal left saphenous vein which measures 7 mm in diameter. There is also reflux in the left mid 3rd saphenous vein in the thigh, 6 mm diameter wi th duration of reflux 4.3 seconds. Left small saphenous vein: No OTHER: No solid or cystic masses or other abnormal findings. IMPRESSION: Reflux in the left common femoral vein, and in the proximal and mid left greater sapheno us veins. TECHNICAL DOCUMENTATION: JOB ID: [id number] [employer]- All Rights Reserved
--- NOTE | 2016-12-08 12:31 | RADIOLOGY REPORT (SQ) ---
EXAM DESCRIPTION: ARTERIAL LOWER EXTREM BILAT COMPLETED DATE/TIME: 12/08/2016 11:27 am REASON FOR STUDY: ULCER L97.222 NON-PRESSURE CHRONIC ULCER OF LEFT CALF W FAT LAYER COMPARISON: Arterial Doppler 05/19/2015 Venous insufficiency study 12/08/2016 TECHNIQUE: Dynamic and static miller scale and color images acquired of the lower extremity arteries. Additional selected spectral images recorded. ABIs recorded. LIMITATIONS: Left lower extremity bandages from the knee down to the ankle. Left lower extremity AB Is were not obtained. The right and left distal common femoral arteries were very difficult to visua lize due to patient body habitus FINDINGS: RIGHT LEG: ABIS: Normal, over 1.0. INFLOW ARTERIES: Normal, no obstruction evident. FEMORAL ARTERIES:Multiphasic waveforms. Normal, no velocity elevation to suggest focal stenosis. Norm al color Doppler evaluation. No aneurysm. POPLITEAL ARTERY:Multiphasic waveforms. Normal, no velocity elevation to suggest focal stenosis. Norm al color Doppler evaluation. No aneurysm. PATENT TIBIOPERONEAL TRUNK AND CALF VESSELS: Yes, normal vessels. Peroneal artery not examined TBI: Not performed. OTHER: No other significant finding. LEFT LEG: ABIS: Unable to perform because of left leg dressing INFLOW ARTERIES: Normal, no obstruction evident. FEMORAL ARTERIES:Multiphasic waveforms. Normal, no velocity elevation to suggest focal stenosis. Norm al color Doppler evaluation. No aneurysm. POPLITEAL ARTERY:Multiphasic waveforms. Normal, no velocity elevation to suggest focal stenosis. Norm al color Doppler evaluation. No aneurysm. PATENT TIBIOPERONEAL TRUNK AND CALF VESSELS: Yes, normal vessels. Peroneal artery not examined TBI: Not performed. OTHER: No other significant finding. IMPRESSION: GROSSLY NORMAL BILATERAL LOWER EXTREMITY ARTERIAL DOPPLER WITH ABIs. COMMENT: [facility], [facility] NORMAL: Greater than 1.0 MINIMAL DISEASE: 0.9 to 1.0 CLAUDICATION: 0.5 to 0.9 SEVERE ARTERIAL DISEASE: Less than 0.5 [facility] NORMAL: Greater than 1.0 (1.2 If Heavy Calcifications) NORMAL TO MILD ISCHEMIA: 0.8 to 1.0 MODERATE ISCHEMIA: 0.4 to 0.8 SEVERE ISCHEMIA: Less than 0.4 TECHNICAL DOCUMENTATION: JOB ID: [id number]- All Rights Reserved
== END ==
LOC: SP 09:15
PROVIDERS: ATTEND Nurse Practitioner Family
DX: I87.2 Venous insufficiency (chronic) (peripheral) (principal); L97.222 Non-pressure chronic ulcer of left calf with fat layer exposed
CPT/HCPCS: 93925; 93970

== ENCOUNTER 2017-01-19 13:06 | Inpatient (IN) | payer MEDICARE, OTHER ==
--- NOTE | 2017-01-19 13:13 | ER Document Report ---
ED Medical Screen (RME) - General Chief Complaint: Leg Pain Stated Complaint: LEG PAIN Time Seen by Provider: 01/19/17 13:11 Mode of Arrival: Wheelchair Information source: Patient TRAVEL OUTSIDE OF THE [place] IN LAST 30 DAYS: No - HPI Patient complains to provider of: Lower extremity diabetic ulcers Notes: 01/19/17 13:12 Patient is a 71-year-old diabetic female presenting to the emergency room today complaining of open wounds with drainage to bilateral lower extremities, the left side has been ongoing and chronic, she has new wounds to the right side, she reports that she was seen by 3 different providers this morning but was displeased with the fact that they are "not properly handling" her open wounds so she came to the emergency room - Related Data Allergies/Adverse Reactions: adhesive [Adhesive] Allergy (Verified 01/19/17 13:11) No Known Drug Allergies Allergy (Verified 01/19/17 13:11) Past Medical History - Past Medical History Cardiac Medical History: Reports: Hx Hypercholesterolemia, Hx Hypertension, Hx Peripheral Vascular Disease Denies: Hx Congestive Heart Failure, Hx DVT, Hx Heart Attack, Hx Pulmonary Embolism Pulmonary Medical History: Reports: Hx Sleep Apnea Denies: Hx Asthma, Hx COPD Neurological Medical History: Denies: Hx Seizures Endocrine Medical History: Reports: Hx Diabetes Mellitus Type 2. Denies: Hx Diabetes Mellitus Type 1, Hx Hyperthyroidism, Hx Hypothyroidism Renal/ Medical History: Denies: Hx Peritoneal Dialysis GI Medical History: Reports: Hx Gastroesophageal Reflux Disease - Distant history of same; no recent symptoms.. Denies: Hx Cirrhosis, Hx Hepatitis Musculoskeltal Medical History: Reports Hx Arthritis Skin Medical History: Reports Hx Cellulitis, Reports Hx MRSA Psychiatric Medical History: Reports: Hx Depression - Denies suicidal or homicidal ideation. Infectious Medical History: Reports: Hx MRSA - Diagnosed August 2016.. Denies: Hx C-Diff, Hx Hepatitis Past Surgical History: Reports: Hx Orthopedic Surgery - Immunizations Immunizations up to date: No Hx Diphtheria, Pertussis, Tetanus Vaccination: Yes
[2017-01-19 13:59] LABS: APPEARANCE,URINE CLOUDY; BILIRUBIN,URINE NEGATIVE (NEGATIVE); GLUCOSE, URINE NEGATIVE (NEGATIVE); KETONES,URINE NEGATIVE (NEGATIVE); LEUKOCYTE ESTERASE,URINE LARGE (NEGATIVE); NITRITE,URINE POSITIVE (NEGATIVE); PROTEIN,URINE 30 mg/dL (NEGATIVE); URINE SPECIFIC GRAVITY 1.019; UROBILINOGEN,URINE NEGATIVE mg/dL (<2.0)
--- NOTE | 2017-01-19 14:24 | RADIOLOGY REPORT (SQ) ---
EXAM DESCRIPTION: FOOT BILATERAL 3 VIEWS COMPLETED DATE/TIME: 01/19/2017 2:07 pm REASON FOR STUDY: diabetic wounds COMPARISON: None. NUMBER OF VIEWS: 4 images of the left foot. 3 images of the right foot. LIMITATIONS: Specific areas of clinical concern are not indicated. FINDINGS: Left foot: Osteopenic. No fracture, subluxation or dislocation evident. No aggressive b one resorption (allowing for limiting osteopenia). There is tarsometatarsal and IP joint degenerativ e change throughout the toes. There is pronounced soft tissue swelling along the dorsal foot without definite gas or radiopaque foreign body. Right foot: Osteopenic. No fracture, subluxation or dislocation. No aggressive bone resorption all owing for limiting osteopenia. Degenerative changes are noted. No radiopaque foreign body. OTHER: No other significant finding. IMPRESSION: As above. TECHNICAL DOCUMENTATION: JOB ID: [id number]
--- NOTE | 2017-01-19 14:27 | RADIOLOGY REPORT (SQ) ---
EXAM DESCRIPTION: TIB FIB BILAT 2 VIEWS COMPLETED DATE/TIME: 01/19/2017 2:07 pm REASON FOR STUDY: DIABETIC ULCERS COMPARISON: None. NUMBER OF VIEWS: Two views, 4 images of the right leg. Two views, 4 images of the left leg. LIMITATIONS: No clinically localizing information provided. FINDINGS: Right leg: Medial compartment knee joint narrowing. Prominent spurring in the lateral com partment and patellofemoral compartment. Mild osteopenia. Ankle DJD. No fracture or bone lesion or radiopaque foreign body. Left leg: DJD in the knee, similar distribution to the right. No fracture or bone lesion. No radio paque foreign body. OTHER: No other significant finding. IMPRESSION: No fracture or bone lesion. Degenerative knee changes. TECHNICAL DOCUMENTATION: JOB ID: [id number]
[2017-01-19 14:58] LABS: ABSOLUTE EOSINOPHILS # (AUTO) 0.3 10^3/uL (0.0-0.6); ABSOLUTE LYMPHOCYTES (AUTO) 3.5 10^3/uL (0.5-4.7); ABSOLUTE MONOCYTES (AUTO) 0.6 10^3/uL (0.1-1.4); ABSOLUTE NEUT (AUTO) 5.9 10^3/uL (1.7-8.2); BASOPHILS % (AUTO) 0.3 % (0-2); EOSINOPHILS % (AUTO) 3.1 % (0-6); LYMPHOCYTES % (AUTO) 33.5 % (13-45); MEAN CORPUSCULAR HEMOGLOBIN 27.8 pg (27.0-33.4); MEAN CORPUSCULAR VOLUME 82 fl (80-97); MONOCYTES % (AUTO) 5.5 % (3-13); RED BLOOD COUNT 4.65 10^6/uL (3.72-5.28); RED CELL DISTRIBUTION WIDTH 14.8 % (11.5-14.0); SEGMENTED NEUTROPHILS % (AUTO) 57.6 % (42-78); WHITE BLOOD COUNT 10.3 10^3/uL (4.0-10.5)
[2017-01-19 15:15] LABS: ALANINE AMINOTRANSFERASE 18 U/L (9-52); ALBUMIN 4.3 g/dL (3.5-5.0); ALKALINE PHOSPHATASE 99 U/L (38-126); ANION GAP 9 (5-19); ASPARTATE AMINO TRANSFERASE 18 U/L (14-36); BILIRUBIN,DIRECT 0.5 mg/dL (0.0-0.4); BILIRUBIN,TOTAL 0.5 mg/dL (0.2-1.3); BLOOD UREA NITROGEN 23 mg/dL (7-20); CALCIUM 9.8 mg/dL (8.4-10.2); CARBON DIOXIDE 31 mmol/L (22-30); CHLORIDE 103 mmol/L (98-107); CREATININE RESULT 1.13 mg/dL (0.52-1.25); GLUCOSE 132 mg/dL (75-110); POTASSIUM 4.5 mmol/L (3.6-5.0); TOTAL PROTEIN 8.1 g/dL (6.3-8.2)
--- NOTE | 2017-01-19 15:32 | ER Document Report ---
ED General - General Chief Complaint: Leg Pain Stated Complaint: LEG PAIN Time Seen by Provider: 01/19/17 13:11 Mode of Arrival: Wheelchair TRAVEL OUTSIDE OF THE [place] IN LAST 30 DAYS: No - HPI Notes: Patient is a 71-year-old female who presents the ED with diabetic ulcers to her lower legs bilaterally with the left being worse than the right. Patient states that she has been seen by wound clinic, but has not been recently and believes she was discharged. Patient states that she has been having drainage and pain to the ulcer in the left lower leg. She has been having it was dressed as directed by the wound clinic. She denies any drug allergies. Denies any headache, fever, head injury, neck pain, URI, sore throat, chest pain , palpitations, syncope, cough, shortness of breath, wheeze, dyspnea, abdominal pain, nausea/vomiting/diarrhea, urinary retention, dysuria, hematuria, loss of control of bowel or bladder, numbness/tingling, saddle anesthesia, muscle paralysis/weakness. - Related Data Allergies/Adverse Reactions: adhesive [Adhesive] Allergy (Verified 01/19/17 13:11) No Known Drug Allergies Allergy (Verified 01/19/17 13:11) Past Medical History - General Information source: Patient - Social History Smoking Status: Never Smoker Chew tobacco use (# tins/day): No Frequency of alcohol use: None Drug Abuse: None Family History: CAD, Malignancy - Past Medical History Cardiac Medical History: Reports: Hx Hypercholesterolemia, Hx Hypertension, Hx Peripheral Vascular Disease Denies: Hx Congestive Heart Failure, Hx DVT, Hx Heart Attack, Hx Pulmonary Embolism Pulmonary Medical History: Reports: Hx Sleep Apnea Denies: Hx Asthma, Hx COPD Neurological Medical History: Denies: Hx Seizures Endocrine Medical History: Reports: Hx Diabetes Mellitus Type 2. Denies: Hx Diabetes Mellitus Type 1, Hx Hyperthyroidism, Hx Hypothyroidism Renal/ Medical History: Denies: Hx Peritoneal Dialysis GI Medical History: Reports: Hx Gastroesophageal Reflux Disease - Distant history of same; no recent symptoms.. Denies: Hx Cirrhosis, Hx Hepatitis Musculoskeltal Medical History: Reports Hx Arthritis Skin Medical History: Reports Hx Cellulitis, Reports Hx MRSA Psychiatric Medical History: Reports: Hx Depression - Denies suicidal or homicidal ideation. Infectious Medical History: Reports: Hx MRSA - Diagnosed August 2016.. Denies: Hx C-Diff, Hx Hepatitis Past Surgical History: Reports: Hx Orthopedic Surgery - Immunizations Immunizations up to date: No Hx Diphtheria, Pertussis, Tetanus Vaccination: Yes Review of Systems - Review of Systems Notes: REVIEW OF SYSTEMS: CONSTITUTIONAL : Denies fever, chills, or sweats. Denies recent illness. EENT: Denies eye, ear, throat, or mouth pain or symptoms. Denies nasal or sinus congestion or discharge. Denies throat, tongue, or mouth swelling or difficulty swallowing. CARDIOVASCULAR: Denies chest pain. Denies palpitations or racing or irregular heart beat. Denies ankle edema. RESPIRATORY: Denies cough, cold, or chest congestion. Denies shortness of breath, difficulty breathing, or wheezing. GASTROINTESTINAL: Denies abdominal pain or distention. Denies nausea, vomiting , or diarrhea. Denies blood in vomitus, stools, or per rectum. Denies black, tarry stools. Denies constipation. GENITOURINARY: Denies difficulty urinating, painful urination, burning, frequency, blood in urine, or discharge. MUSCULOSKELETAL: see hpi SKIN: see hpi NEUROLOGICAL: Denies confusion or altered mental status. Denies passing out or loss of consciousness. Denies dizziness or lightheadedness. Denies headache. Denies weakness or paralysis or loss of use of either side. Denies problems with gait or speech. Denies sensory loss, numbness, or tingling. ALL OTHER SYSTEMS REVIEWED AND NEGATIVE. Dictation was performed using [employer] voice recognition software Physical Exam - Vital signs Vitals: Temp Pulse Resp BP Pulse Ox 97.6 F 99 22 H 155/79 H 94 01/19/17 13:12 01/19/17 13:12 01/19/17 13:12 01/19/17 13:12 01/19/17 13:12 Notes: PHYSICAL EXAMINATION: GENERAL: Well-appearing, well-nourished and in no acute distress. Morbidly obese. LUNGS: Breath sounds clear to auscultation bilaterally and equal. No wheezes rales or rhonchi. HEART: Regular rate and rhythm without murmurs, rubs, gallops. ABDOMEN: Soft, nontender, nondistended abdomen. No guarding, no rebound. No masses appreciated. Normal bowel sounds present. No CVA tenderness bilaterally. Musculoskeletal: LE's b/l: FROM to passive/active. Strength 5+/5. Extremities: No cyanosis, clubbing, or edema b/l. Peripheral pulses 2+. Capillary refill less than 3 seconds. NEUROLOGICAL: Cranial nerves grossly intact. Normal speech, normal gait. Normal sensory, motor exams PSYCH: Normal mood, normal affect. SKIN: Lt LE: Very large approx stage 2 ulcer encompassing almost the entire distal 1/3 tib/fib extending to the ankle. + drainage, + odor, + erythema and tenderness to palp near the ankle. Rt LE: Stage 1 ulcer to the anterior lower leg. Non-tender. no purulent discharge or streaks. Course - Re-evaluation Re-evalutation: 01/19/17 16:28 Large diabetic leg ulcer to the Left lower leg. Consult with Dr. Musa who will admit the patient. Pt also noted to have UTI. UC pending. Lactic added. Clindamycin IV started. Wound dressing placed with silvadene. Other direction per Dr. Musa. 01/19/17 16:[address] Musa again. He would like medical admission and he will consult. Spoke with Dr. Landin who will accept patient for admission on med floor with surgical consult. - Vital Signs Vital signs: Temp Pulse Resp BP Pulse Ox 97.6 F 75 23 H 155/79 H 94 01/19/17 13:12 01/19/17 15:16 01/19/17 15:16 01/19/17 13:12 01/19/17 15:16 - Laboratory Result Diagrams: 01/19/17 14:40 01/19/17 14:40 Laboratory results interpreted by me: 01/19/17 01/19/17 01/19/17 13:32 14:40 14:40 RDW 14.8 H Carbon Dioxide 31 H BUN 23 H Est GFR ( Amer) 57 L Est GFR (Non-Af Amer) 47 L Glucose 132 H Direct Bilirubin 0.5 H Urine Protein 30 H Urine Blood SMALL H Urine Nitrite POSITIVE H Ur Leukocyte Esterase LARGE H Discharge - Discharge Clinical Impression: Diabetic ulcer of both lower extremities Condition: Stable Disposition: ADMITTED INPATIENT Admitting Provider: Hospitalist - Dr. Landin with surgical consult Unit Admitted: Medical Floor
[2017-01-19] MEDS ORDERED: CLINDAMYCIN 600 MG/D5W RTU 600 MG/50 ML RTUPB IV ONE (16:29)
[2017-01-19] MEDS ORDERED: ACETAMINOPHEN 325 MG TABLET PO PRN (17:44)
[2017-01-19] MEDS ORDERED: ONDANSETRON HCL INJ/PF 4 MG/2 ML SDV IV PRN (17:51)
[2017-01-19] MEDS ORDERED: GLUCAGON,HUMAN RECOMB 1 MG INJ IM PRN (17:52)
[2017-01-19] MEDS ORDERED: INSULIN REG, HUMAN 100 UNIT/ML 3 ML VIAL (PYX) SUBCUT PRN (17:52)
[2017-01-19] MEDS ORDERED: DEXTROSE 40% GEL 15 GM TUBE PO PRN ×2 (17:52)
[2017-01-19] MEDS ORDERED: DEXTROSE 50%-WATER 25 GM/50 ML DISP.SYRIN IV PRN ×2 (17:52)
[2017-01-19] MEDS ORDERED: ERTAPENEM SODIUM INJ 1 GM VIAL IV SCH (18:00)
--- NOTE | 2017-01-19 18:04 | PDOC H&P ---
History of Present Illness Admission Date/PCP: 01/19/17 16:38 Patient complains of: Leg wounds and pain History of Present Illness: SERINA LEE is a 71 year old female, with morbid obesity, diabetes, chronic venous stasis and lymphedema of both lower extremities has been dealing with leg ulcers for several months. The patient has been going to the wound clinic and also has home health managing her wounds on the left leg. The patient was recently seen at the wound clinic and stated that more aggressive treatment is needed and they could not provide any more care for her according to the patient. Home health has been taking care of her wounds and today started to develop more discomfort. There is no increasing drainage however. Patient always has some foul-smelling drainage intermittently. Patient presents to the emergency room. Surgery was consulted who recommended patient be admitted to medicine for antibiotics and surgical consultation for possible debridement. In the emergency room a urinalysis was performed and was abnormal. The patient has history of multidrug resistant organisms including ESBL, enterococcus, Pseudomonas, and MRSA. Past Medical History Past Medical History: Medication reconciliation pending verification from the patient's pharmacist. Cardiac Medical History: Reports: Hyperlipidema, Hypertension, Peripheral Vascular Disease Denies: Congestive Heart Failure, DVT, Myocardial Infarction, Pulmonary Embolism Pulmonary Medical History: Reports: Sleep Apnea Denies: Asthma, Chronic Obstructive Pulmonary Disease (COPD) Neurological Medical History: Denies: Seizures Endocrine Medical History: Reports: Diabetes Mellitus Type 2 Denies: Diabetes Mellitus Type 1, Hyperthyroidism, Hypothyroidism GI Medical History: Reports: Gastroesophageal Reflux Disease - Distant history of same; no recent symptoms. Denies: Cirrhosis, Hepatitis Musculoskeltal Medical History: Reports: Arthritis Skin Medical History: Reports: Other - Lymphedema Psychiatric Medical History: Reports: Depression - Denies suicidal or homicidal ideation. 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 Denies: Clostridium Difficile Past Surgical History Past Surgical History: Reports: Orthopedic Surgery, Other - Wound debridement Social History Information Source: Patient Smoking Status: Never Smoker Frequency of Alcohol Use: None Hx Recreational Drug Use: No Drugs: None Hx Prescription Drug Abuse: No Family History Family History: CAD, DM, Malignancy Parental Family History Reviewed: Yes Children Family History Reviewed: Yes Sibling(s) Family History Reviewed.: Yes Medication/Allergy Home Medications: Amlodipine Besylate [Norvasc 10 mg Tablet] 10 mg PO DAILY 09/18/16 Atorvastatin Calcium [Lipitor 10 mg Tablet] 10 mg PO QHS 09/18/16 Celecoxib [Celebrex] 200 mg PO DAILY 09/18/16 Ergocalciferol (Vitamin D2) [Vitamin D2] 50,000 unit PO [id number] 09/18/16 Gabapentin [Neurontin 300 mg Capsule] 300 mg PO Q8HP PRN 09/18/16 Lisinopril [Prinivil 10 mg Tablet] 10 mg PO DAILY 09/18/16 Oxycodone HCl/Acetaminophen [Oxycodone-Acetaminophen 5-325] 1 tab PO Q6HP PRN Tramadol HCl [Ultram 50 mg Tablet] 50 mg PO Q8HP PRN 09/18/16 Prednisone [Deltasone 20 mg Tablet] 20 mg PO BID tablet 09/27/16 Rifampin [Rifadin 300 mg Capsule] 300 mg PO BID capsule 09/27/16 Tolterodine Tartrate [Detrol 1 mg Tablet] 2 mg PO Q12 tablet 09/27/16 Oxycodone HCl/Acetaminophen [Percocet 5-325 mg Tablet] 1 tab PO Q4H PRN #25 tablet 10/21/16 Allergies/Adverse Reactions: adhesive [Adhesive] Allergy (Verified 01/19/17 13:11) No Known Drug Allergies Allergy (Verified 01/19/17 13:11) Review of Systems Constitutional: PRESENT: fatigue - Chronic easy fatigability, weakness - Generalized. ABSENT: chills, fever(s), headache(s), night sweats, weight gain, weight loss Eyes: PRESENT: visual disturbances - Wears glasses Ears: ABSENT: hearing changes Nose, Mouth, and Throat: ABSENT: mouth pain, sore throat Cardiovascular: PRESENT: dyspnea on exertion - Chronic, edema - Chronic lymphedema. ABSENT: chest pain, orthropnea, palpitations Respiratory: ABSENT: cough, dyspnea, hemoptysis, sputum Gastrointestinal: ABSENT: abdominal pain, coffee ground emesis, constipation, diarrhea, hematemesis, hematochezia, melena, nausea, vomiting Genitourinary: ABSENT: dysuria, hematuria Musculoskeletal: ABSENT: joint swelling Integumentary: PRESENT: wounds - Chronic in both lower extremities more on the left Neurological: ABSENT: abnormal gait, abnormal speech, confusion, dizziness, focal weakness, syncope Psychiatric: ABSENT: anxiety, depression, homidical ideation, suicidal ideation Endocrine: ABSENT: cold intolerance, heat intolerance, polydipsia, polyphagia, polyuria Hematologic/Lymphatic: ABSENT: easy bleeding, easy bruising Physical Exam Vital Signs: Temp Pulse Resp BP Pulse Ox 97.6 F 75 23 H 155/79 H 94 01/19/17 13:12 01/19/17 15:16 01/19/17 15:16 01/19/17 13:12 01/19/17 15:16 General appearance: PRESENT: no acute distress, morbidly obese Head exam: PRESENT: atraumatic, normocephalic Eye exam: PRESENT: conjunctiva pink, EOMI, PERRLA. ABSENT: scleral icterus Ear exam: PRESENT: normal external ear exam. ABSENT: drainage Mouth exam: PRESENT: moist, neck supple, tongue midline Neck exam: ABSENT: carotid bruit, JVD, lymphadenopathy, thyromegaly Respiratory exam: PRESENT: clear to auscultation kurt. ABSENT: rales, rhonchi, wheezes Cardiovascular exam: PRESENT: RRR, +S1, +S2, systolic murmur - 2/6 and left sternal border. ABSENT: diastolic murmur, rubs Pulses: PRESENT: normal dorsalis pedis pul Vascular exam: PRESENT: normal capillary refill GI/Abdominal exam: PRESENT: normal bowel sounds, soft, other - Abdominal wall pannus. ABSENT: distended - Obese, guarding, mass - Exam limited due to increased abdominal girth, organolmegaly - Exam limited due to increased abdominal girth, rebound, tenderness Rectal exam: PRESENT: deferred Extremities exam: PRESENT: full ROM, other - Chronic lymphedema bilateral. ABSENT: calf tenderness, clubbing Neurological exam: PRESENT: alert, awake, oriented to person, oriented to place , oriented to time, oriented to situation Psychiatric exam: PRESENT: appropriate affect, normal mood. ABSENT: homicidal ideation, suicidal ideation Skin exam: PRESENT: dry, intact, warm. ABSENT: cyanosis, rash Results Laboratory Results: 01/19/17 17:00 Lactic Acid 1.1 Impressions: Tibia/Fibula X-Ray 01/19/17 00:00 IMPRESSION: No fracture or bone lesion. Degenerative knee changes. Foot X-Ray 01/19/17 13:13 IMPRESSION: As above. Assessment & Plan - Time Time Spent: 30 to 50 Minutes - Plan Summary Plan Summary: Patient will be admitted to observation. We will consult surgery for debridement. We will place a PICC line and start the patient on intravenous Invanz for a possible complicated urinary tract infection. Patient had history of ESBL in the past. DVT prophylaxis with Lovenox will be placed. Patient will be on sliding scale insulin. We will set up the patient for wound care when okayed by surgery for discharge. Further testing depends on the initial evaluations outlined above.
[2017-01-19] MEDS ORDERED: INFLUENZA ADLT QUAD (36MOS+) 2017-18 VAC 0.5 ML SYR IM PRN (18:53)
[2017-01-19] MEDS ORDERED: ENOXAPARIN SODIUM INJ 40 MG/0.4 ML DISP.SYRIN SUBCUT ONE (19:00)
--- NOTE | 2017-01-19 19:47 | PDOC CONSULTATION ---
Consultation Consult Date: 01/19/17 Consult reason:: Painful Venous stasis ulcers left lower leg History of Present Illness Admission Date/PCP: 01/19/17 16:38 History of Present Illness: Patient is a 71-year-old female complaining of pains along the left lower leg with chronic ulcers. Patient has been having some episode of dementia and not sure why he came to the hospital. I talked to her daughter on the phone and said that her mother lives alone and she was discharged from the wound care center to be admitted to a rehab facility for intensive in-house therapy of her lower leg venous stasis ulcers. He she would have this off and on ulcers of the left lower leg though it will not completely heal in the past at least 2 years. She is she cried Unna boot recently but unable to tolerate it for more than an hour and a half because of severe pains. Past Medical History Cardiac Medical History: Reports: Hyperlipidema, Hypertension, Peripheral Vascular Disease Denies: Congestive Heart Failure, DVT, Myocardial Infarction, Pulmonary Embolism Pulmonary Medical History: Reports: Sleep Apnea Denies: Asthma, Chronic Obstructive Pulmonary Disease (COPD) Neurological Medical History: Denies: Seizures Endocrine Medical History: Reports: Diabetes Mellitus Type 2 Denies: Diabetes Mellitus Type 1, Hyperthyroidism, Hypothyroidism GI Medical History: Reports: Gastroesophageal Reflux Disease - Distant history of same; no recent symptoms. Denies: Cirrhosis, Hepatitis Musculoskeltal Medical History: Reports: Arthritis Skin Medical History: Reports: Other - Lymphedema Psychiatric Medical History: Reports: Depression - Denies suicidal or homicidal ideation. 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 Denies: Clostridium Difficile Past Surgical History Past Surgical History: Reports: Orthopedic Surgery, Other - Wound debridement Social History Smoking Status: Never Smoker Frequency of Alcohol Use: None Hx Recreational Drug Use: No Drugs: None Hx Prescription Drug Abuse: No - Advance Directive Resuscitation Status: Full Code Family History Family History: CAD, Malignancy Parental Family History Reviewed: Yes Children Family History Reviewed: Yes Sibling(s) Family History Reviewed.: Yes Medication/Allergy Home Medications: Unobtainable [Unobtainable] 01/19/17 Allergies/Adverse Reactions: adhesive [Adhesive] Allergy (Verified 01/19/17 13:11) No Known Drug Allergies Allergy (Verified 01/19/17 13:11) Review of Systems ROS unobtainable: Due to endotracheal tube Constitutional: PRESENT: other - Denies any chills or fever Eyes: PRESENT: other - Wears reading glasses Ears: PRESENT: other - No hearing problems Nose, Mouth, and Throat: PRESENT: other - No sore throat Cardiovascular: PRESENT: other - Claims he had she had some chest pressure usually at night for the past 2 nights but today she does not have it. Respiratory: PRESENT: other - Denies any shortness of breath or cough Gastrointestinal: PRESENT: other - No nausea or vomiting diarrhea no constipation Genitourinary: PRESENT: other - No dysuria Musculoskeletal: PRESENT: other - Muscle pains lower legs Integumentary: PRESENT: other - Has superficial ulcers in the right lower leg and deeper venous stasis ulcers practically of full skin thickness Neurological: PRESENT: other - No syncopal episodes or dizziness or or convulsions Psychiatric: PRESENT: other - Denies any anxiety or depression Endocrine: PRESENT: other - Denies polydipsia polyuria Hematologic/Lymphatic: PRESENT: other - Of easy bruising along both lower legs Physical Exam Vital Signs: Temp Pulse Resp BP Pulse Ox 97.6 F 75 23 H 155/79 H 94 01/19/17 13:12 01/19/17 15:16 01/19/17 15:16 01/19/17 13:12 01/19/17 15:16 General appearance: PRESENT: morbidly obese Head exam: PRESENT: atraumatic, normocephalic Eye exam: PRESENT: conjunctiva pink, PERRLA Ear exam: PRESENT: normal external ear exam Mouth exam: PRESENT: moist, tongue midline Neck exam: PRESENT: other - No thyromegaly Respiratory exam: PRESENT: clear to auscultation kurt Cardiovascular exam: PRESENT: RRR Pulses: PRESENT: normal carotid pulses Vascular exam: PRESENT: normal capillary refill GI/Abdominal exam: PRESENT: soft, other - Nontender Rectal exam: PRESENT: deferred Extremities exam: PRESENT: +1 edema Musculoskeletal exam: PRESENT: ambulatory Neurological exam: PRESENT: awake, oriented to person, oriented to place, oriented to time, oriented to situation Psychiatric exam: PRESENT: appropriate affect Skin exam: PRESENT: erythema, warm Results Laboratory Results: 01/19/17 17:00 Lactic Acid 1.1 Impressions: Tibia/Fibula X-Ray 01/19/17 00:00 IMPRESSION: No fracture or bone lesion. Degenerative knee changes. Foot X-Ray 01/19/17 13:13 IMPRESSION: As above. Assessment & Plan - Diagnosis (1) Diabetic ulcer of both lower extremities Is this a current diagnosis for this admission?: Yes Plan: Okay to start IV antibiotics Start Silvadene dressings to both lower extremities twice a day. Elevate both legs on one to 2 pillows while in bed. (2) Cellulitis of lower extremity Qualifiers: Laterality: unspecified laterality Qualified Code(s): L03.119 - Cellulitis of unspecified part of limb (3) Cellulitis of right leg Is this a current diagnosis for this admission?: Yes (4) Diabetes Qualifiers: Diabetes mellitus type: type 2 Diabetes mellitus complication status: with unspecified complications Diabetes mellitus termination clerk insulin use: with termination clerk use Qualified Code(s): E11.8 - Type 2 diabetes mellitus with unspecified complications (5) Gouty arthritis Is this a current diagnosis for this admission?: Yes (6) History of MRSA infection Is this a current diagnosis for this admission?: Yes - Time Time Spent: 50 to 70 Minutes Critical Time spent with patient: 35 or more minutes
[2017-01-19] MEDS: DOCUSATE SODIUM 100 MG CAPSULE PO SCH (19:59)
[2017-01-19] MEDS ORDERED: SILVER SULFADIAZINE 1% CREAM 400 GM TP ONE (21:00)
[2017-01-19] MEDS: ERTAPENEM SODIUM 1 GM in NORMAL SALINE 50 ML IV SCH (22:12)
[2017-01-19] MEDS: ATORVASTATIN CALCIUM 10 MG TABLET PO SCH (22:12)
[2017-01-19] MEDS: OXYCODONE-ACETAMINOPHEN 5-325 MG TABLET PO PRN (23:15)
[2017-01-20] MEDS: IBUPROFEN 800 MG TABLET PO PRN ×3 (05:34→22:13)
[2017-01-20 05:54] LABS: ANION GAP 12 (5-19); BLOOD UREA NITROGEN 23 mg/dL (7-20); CALCIUM 9.3 mg/dL (8.4-10.2); CARBON DIOXIDE 27 mmol/L (22-30); CHLORIDE 103 mmol/L (98-107); CREATININE RESULT 1.15 mg/dL (0.52-1.25); GLUCOSE 112 mg/dL (75-110); POTASSIUM 4.3 mmol/L (3.6-5.0); SODIUM 141.7 mmol/L (137-145)
[2017-01-20] MEDS ORDERED: LANSOPRAZOLE 30 MG TAB.RAP.DR PO SCH (06:00)
[2017-01-20] MEDS ORDERED: MORPHINE SULFATE 10 MG/ML INJ ONE (07:51)
[2017-01-20] MEDS ORDERED: SILVER SULFADIAZINE 1% CREAM 400 GM TP SCH (10:00)
--- NOTE | 2017-01-20 10:23 | PDOC PROGRESS REPORT ---
Subjective Progress Note for:: 01/20/17 Subjective:: Left leg pain Physical Exam Vital Signs: Temp Pulse Resp BP Pulse Ox 98.1 F 70 18 150/62 H 95 01/20/17 07:38 01/20/17 07:38 01/20/17 07:38 01/20/17 07:38 01/20/17 07:38 Intake & Output 01/19/17 01/20/17 01/21/17 06:59 06:59 06:59 Intake Total 960 Output Total 700 Balance 260 Weight 172.36 kg General appearance: PRESENT: no acute distress, cooperative Extremities exam: PRESENT: other - Bilateral lower extremity edema with right lower extremity erythema with a very superficial small ulcerations. Left lower extremity with diffuse partial thickness skin loss with marked erythema but not full-thickness. No necrotic debris to debride. Results Laboratory Results: 01/20/17 04:16 01/19/17 01/20/17 17:00 04:16 Sodium 141.7 Potassium 4.3 Chloride 103 Carbon Dioxide 27 Anion Gap 12 BUN 23 H Creatinine 1.15 Est GFR ( Amer) 56 L Est GFR (Non-Af Amer) 47 L Glucose 112 H Lactic Acid 1.1 Calcium 9.3 Impressions: Tibia/Fibula X-Ray 01/19/17 00:00 IMPRESSION: No fracture or bone lesion. Degenerative knee changes. Foot X-Ray 01/19/17 13:13 IMPRESSION: As above. Assessment & Plan - Diagnosis (1) Venous stasis ulcers of both lower extremities Is this a current diagnosis for this admission?: Yes Plan: We will continue Silvadene and elevations. The right lower extremity does not appear severe but left side would not tolerate an Unna boot at this time.
[2017-01-20] MEDS: LISINOPRIL 10 MG TABLET PO SCH (10:27)
[2017-01-20] MEDS: ENOXAPARIN SODIUM INJ 40 MG/0.4 ML DISP.SYRIN SUBCUT SCH (10:27)
[2017-01-20] MEDS: NORMAL SALINE 1000 ML 1,000 ML IV PRN (10:29)
[2017-01-20] MEDS: DOCUSATE SODIUM 100 MG CAPSULE PO SCH ×2 (10:30→17:11)
--- NOTE | 2017-01-20 10:45 | PDOC PROGRESS REPORT ---
Subjective Progress Note for:: 01/20/17 Subjective:: Patient overall felt better. Discomfort on the leg better. No nausea vomiting or diarrhea. No chills or fever. Patient just had debridement. Physical Exam Vital Signs: Temp Pulse Resp BP Pulse Ox 98.1 F 70 18 150/62 H 95 01/20/17 07:38 01/20/17 07:38 01/20/17 07:38 01/20/17 07:38 01/20/17 07:38 Intake & Output 01/19/17 01/20/17 01/21/17 06:59 06:59 06:59 Intake Total 960 Output Total 700 Balance 260 Weight 172.36 kg General appearance: PRESENT: no acute distress, cooperative Head exam: PRESENT: normocephalic Eye exam: PRESENT: EOMI Mouth exam: PRESENT: moist, neck supple GI/Abdominal exam: PRESENT: soft. ABSENT: distended - Obese, tenderness Extremities exam: PRESENT: +1 edema - Bilateral, other - Leg dressing no foul- smelling drainage noted Neurological exam: PRESENT: alert, awake, oriented to situation Skin exam: PRESENT: dry, warm. ABSENT: cyanosis Results Laboratory Results: 01/20/17 04:16 01/19/17 01/20/17 17:00 04:16 Sodium 141.7 Potassium 4.3 Chloride 103 Carbon Dioxide 27 Anion Gap 12 BUN 23 H Creatinine 1.15 Est GFR ( Amer) 56 L Est GFR (Non-Af Amer) 47 L Glucose 112 H Lactic Acid 1.1 Calcium 9.3 Impressions: Tibia/Fibula X-Ray 01/19/17 00:00 IMPRESSION: No fracture or bone lesion. Degenerative knee changes. Foot X-Ray 01/19/17 13:13 IMPRESSION: As above. Assessment & Plan - Diagnosis (1) UTI (urinary tract infection) Is this a current diagnosis for this admission?: Yes (2) Chronic venous stasis dermatitis Is this a current diagnosis for this admission?: Yes (3) Diabetic ulcer of both lower extremities Is this a current diagnosis for this admission?: Yes (4) Lymphedema Is this a current diagnosis for this admission?: Yes (5) Morbid obesity Is this a current diagnosis for this admission?: Yes (6) CKD (chronic kidney disease), stage III Is this a current diagnosis for this admission?: Yes (7) Diabetes mellitus type 2 in obese Is this a current diagnosis for this admission?: Yes (8) Hyperlipidemia Qualifiers: Hyperlipidemia type: unspecified Qualified Code(s): E78.5 - Hyperlipidemia , unspecified Is this a current diagnosis for this admission?: Yes (9) Hypertension Qualifiers: Hypertension type: essential hypertension Qualified Code(s): I10 - Essential (primary) hypertension Is this a current diagnosis for this admission?: Yes - Time Time Spent with patient: 15-24 minutes - Plan Summary Plan Summary: Continue wound care with surgery. Continue current antibiotic and follow urine culture. History of complicated urinary tract infection with ESBL. Patient already had a PICC line. We will consult meeting/event planner for home IV infusion of antibiotics.
[2017-01-20] MEDS ORDERED: ONDANSETRON HCL INJ/PF 4 MG/2 ML SDV IV PRN (11:00)
--- NOTE | 2017-01-20 12:30 | RADIOLOGY REPORT (SQ) ---
EXAM DESCRIPTION: PICC INSERTION; FLUORO/CV PLACEMENT; U/S GUIDE FOR VASCULAR ACCESS COMPLETED DATE/TIME: 01/20/2017 9:09 am REASON FOR STUDY: Poor IV access; POOR IV ACCESS; PICC INSERTION COMPARISON: Two-view chest 09/22/2016 FLUOROSCOPY TIME: 19 seconds 3 digital fluoro and 1 ultrasound images saved to PACS. TECHNIQUE: Fluoroscopic and ultrasound guided PICC placement. LIMITATIONS: None. PROCEDURE: After written consent and assessment were obtained, the patient was brought into the fluo roscopy room and place supine on the table. Ultrasound was used on the patient's left arm for PICC a ccess. The left arm was prepped and draped in a sterile fashion along with the ultrasound probe. The entry site was anesthetized with 1% lidocaine. A 21 gauge 7 cm needle was advanced through the skin a nd into the basilic vein under live ultrasound guidance. An ultrasound image was saved to PACS confi rming access site. A .018 guide wire was then inserted through the needle and into the venous system . The needle was the removed and an 11 blade scalpel was used to make a 1cm skin incision. A 5 fr pe el-away sheath was advanced over the wire and into the venous system. A measurement was then made usi ng the existing wire and live fluoroscopic guidance. The wire was then removed and the trimmed. The P ICC was advanced through the peel-away sheath and into the venous system. The peel-away sheath was re moved and the catheter was adhered to the patients arm with a stat lock. The catheter was then aspira leandra and flushed and a sterile bandage was placed over the access site. A fluoroscopic spot image was saved to PACS confirming the catheter tip within the superior vena cava. IMPRESSION: SUCCESSFUL PLACEMENT OF A 5 FR DUAL LUMEN 51 CM PICC IN THE LEFT BASILIC VEIN. COMMENT: Patient medication list reviewed: Yes- Quality ID# [id number]:Eligible professional attests to doc umenting in the medical record they obtained, updated, or reviewed the patient's current medications. . Quality ID 145: Final reports for procedures using fluoroscopy that document radiation exposure pop alfred, or exposure time and number of fluorographic images (if radiation exposure indices are not avail able) Quality ID #76: The patient was prepped and draped using maximum sterile barrier technique including cap, mask, sterile gown, sterile gloves, a large sterile sheet, hand hygiene, and 2% Chlorhexidine fo r cutaneous antisepsis. When ultrasound is used, sterile ultrasound techniques are followed requiring sterile gel and sterile probes. TECHNICAL DOCUMENTATION: JOB ID: [id number] [employer]- All Rights Reserved
[2017-01-20] MEDS: OXYCODONE HCL IR 5 MG TABLET PO PRN (18:05)
[2017-01-20] MEDS: OXYCODONE-ACETAMINOPHEN 5-325 MG TABLET PO PRN (20:01)
[2017-01-20] MEDS: MORPHINE SULFATE 10 MG/ML INJ IV PRN (22:12)
[2017-01-20] MEDS: GABAPENTIN 300 MG CAPSULE PO SCH (22:15)
[2017-01-20] MEDS: ATORVASTATIN CALCIUM 10 MG TABLET PO SCH (22:15)
[2017-01-20] MEDS: SILVER SULFADIAZINE 1% CREAM 400 GM TP SCH (22:16)
[2017-01-20] MEDS: NORMAL SALINE 10 ML SDV (SCHEDULED) IV SCH (22:18)
[2017-01-20] MEDS: ERTAPENEM SODIUM 1 GM in NORMAL SALINE 50 ML IV SCH (22:48)
[2017-01-21] MEDS: OXYCODONE HCL IR 5 MG TABLET PO PRN (00:49)
[2017-01-21] MEDS: LANSOPRAZOLE 30 MG TAB.RAP.DR PO SCH (05:54)
[2017-01-21] MEDS: GABAPENTIN 300 MG CAPSULE PO SCH ×3 (05:54→21:30)
[2017-01-21] MEDS: MORPHINE SULFATE 10 MG/ML INJ IV PRN ×2 (05:54→20:37)
--- NOTE | 2017-01-21 08:14 | PDOC PROGRESS REPORT ---
Subjective Progress Note for:: 01/21/17 Subjective:: No fever nor diarrhea. No SOB, N/V/abdominal pain. Aches and pain on legs still present but improved. Physical Exam Vital Signs: Temp Pulse Resp BP Pulse Ox 98.0 F 69 20 136/59 H 90 L 01/20/17 23:25 01/20/17 23:25 01/21/17 04:21 01/20/17 23:25 01/20/17 23:25 Intake & Output 01/20/17 01/21/17 01/22/17 06:59 06:59 06:59 Intake Total 960 1560 Output Total 700 1200 Balance 260 360 Weight 172.36 kg 172.36 kg General appearance: PRESENT: no acute distress, morbidly obese Head exam: PRESENT: normocephalic Eye exam: PRESENT: EOMI Mouth exam: PRESENT: moist, neck supple Neck exam: ABSENT: JVD Respiratory exam: PRESENT: clear to auscultation kurt. ABSENT: rhonchi, wheezes Cardiovascular exam: PRESENT: RRR. ABSENT: gallop GI/Abdominal exam: PRESENT: hypoactive bowel sounds. ABSENT: distended - obese Extremities exam: PRESENT: other - lympedema B/L. Wound dressings clean and dry. Neurological exam: PRESENT: alert, awake, oriented to situation Skin exam: PRESENT: dry, warm. ABSENT: cyanosis Results Laboratory Results: 01/20/17 04:16 Impressions: Tibia/Fibula X-Ray 01/19/17 00:00 IMPRESSION: No fracture or bone lesion. Degenerative knee changes. Foot X-Ray 01/19/17 13:13 IMPRESSION: As above. Guidance Fluoroscopy 01/20/17 00:00 IMPRESSION: SUCCESSFUL PLACEMENT OF A 5 FR DUAL LUMEN 51 CM PICC IN THE LEFT BASILIC VEIN. Interventional Vascular Procedure 01/20/17 00:00 IMPRESSION: SUCCESSFUL PLACEMENT OF A 5 FR DUAL LUMEN 51 CM PICC IN THE LEFT BASILIC VEIN. PICC Line Insertion 01/20/17 00:00 IMPRESSION: SUCCESSFUL PLACEMENT OF A 5 FR DUAL LUMEN 51 CM PICC IN THE LEFT BASILIC VEIN. Assessment & Plan - Diagnosis (1) UTI (urinary tract infection) Is this a current diagnosis for this admission?: Yes (2) Chronic venous stasis dermatitis Is this a current diagnosis for this admission?: Yes (3) Diabetic ulcer of both lower extremities Is this a current diagnosis for this admission?: Yes (4) Lymphedema Is this a current diagnosis for this admission?: Yes (5) Morbid obesity Is this a current diagnosis for this admission?: Yes (6) CKD (chronic kidney disease), stage III Is this a current diagnosis for this admission?: Yes (7) Diabetes mellitus type 2 in obese Is this a current diagnosis for this admission?: Yes (8) Hyperlipidemia Qualifiers: Hyperlipidemia type: unspecified Qualified Code(s): E78.5 - Hyperlipidemia , unspecified Is this a current diagnosis for this admission?: Yes (9) Hypertension Qualifiers: Hypertension type: essential hypertension Qualified Code(s): I10 - Essential (primary) hypertension Is this a current diagnosis for this admission?: Yes - Time Time Spent with patient: 25-34 minutes - Plan Summary Plan Summary: Continue invanz. Add vancomycin. Family reportedly patient having confusion and signs of dementia. Chech B12, tsh, head CT.
[2017-01-21] MEDS: LISINOPRIL 10 MG TABLET PO SCH (09:21)
[2017-01-21] MEDS: IBUPROFEN 800 MG TABLET PO PRN ×2 (09:26→23:47)
[2017-01-21] MEDS: DOCUSATE SODIUM 100 MG CAPSULE PO SCH ×2 (09:30→18:31)
[2017-01-21] MEDS: NORMAL SALINE 10 ML SDV (AFTER EACH USE) IV PRN (09:30)
[2017-01-21] MEDS: ENOXAPARIN SODIUM INJ 40 MG/0.4 ML DISP.SYRIN SUBCUT SCH (09:30)
--- NOTE | 2017-01-21 09:32 | RADIOLOGY REPORT (SQ) ---
EXAM DESCRIPTION: CT HEAD WITHOUT COMPLETED DATE/TIME: 01/21/2017 8:53 am REASON FOR STUDY: confusion R41.82 ALTERED MENTAL STATUS, UNSPECIFIED G47.51 CONFUSIONAL AROUSALS COMPARISON: None. TECHNIQUE: Axial images acquired through the brain without intravenous contrast. Images reviewed wi th bone, brain and subdural windows. Images stored on PACS. All CT scanners at this facility use dose modulation, iterative reconstruction, and/or weight based d osing when appropriate to reduce radiation dose to as low as reasonably achievable (ALARA). [facility]: Dose Right [facility]: CareDose [facility]: Dose Right [facility]: Teradose 4D [facility]: Smart [employer] RADIATION DOSE: Up-to-date CT equipment and radiation dose reduction techniques were employed. CTDIv ol: 49.0 mGy. DLP: 881 mGy-cm. mGy. LIMITATIONS: None. FINDINGS: VENTRICLES: Normal size and contour. CEREBRUM: No masses. No hemorrhage. No midline shift. No evidence for acute infarction. There is s potty low attenuation in the bilateral basal ganglia and left thalamus from small vessel lacunar infa rcts chronic in appearance. Focal left wilfredo low-attenuation also likely an old chronic lacunar infar ct. CEREBELLUM: No masses. No hemorrhage. No alteration of density. No evidence for acute infarction. EXTRAAXIAL SPACES: No fluid collections. No masses. ORBITS AND GLOBE: No intra- or extraconal masses. Normal contour of globe without masses. CALVARIUM: No fracture. PARANASAL SINUSES: No fluid or mucosal thickening. SOFT TISSUES: No mass or hematoma. OTHER: No other significant finding. IMPRESSION: No CT evidence of acute intracranial hemorrhage, midline shift mass effect, or large ter ritory acute ischemic change. Suspect old lacunar infarcts in the left wilfredo, left thalamus and bilateral basal ganglia from chronic white matter disease. EVIDENCE OF ACUTE STROKE: NO. COMMENT: Quality ID # [id number]: Final reports with documentation of one or more dose reduction techniques (e.g., Automated exposure control, adjustment of the mA and/or kV according to patient size, use of iterative reconstruction technique) TECHNICAL DOCUMENTATION: JOB ID: [id number] [employer]- All Rights Reserved
[2017-01-21] MEDS ORDERED: VANCOMYCIN HCL INJ 1000 MG VIAL IV SCH (10:00)
[2017-01-21] MEDS: VANCOMYCIN HCL 1,500 MG in DEXTROSE 5%-WATER 250 ML IV SCH ×2 (11:02→22:27)
[2017-01-21] MEDS: SILVER SULFADIAZINE 1% CREAM 400 GM TP SCH ×2 (13:00→21:32)
--- NOTE | 2017-01-21 13:04 | PDOC PROGRESS REPORT ---
Subjective Progress Note for:: 01/21/17 Subjective:: Still complaining of pains along the left lower leg Physical Exam Vital Signs: Temp Pulse Resp BP Pulse Ox 98.0 F 81 24 H 144/90 H 100 01/21/17 11:54 01/21/17 11:54 01/21/17 11:54 01/21/17 11:54 01/21/17 11:54 Exam: Dressings on both legs were removed and the left lower leg wound still with the reddish discoloration and very tender. Appears to the ulcer is practically full thickness. The right leg has more superficial superficial and a lot smaller wounds and they are not as tender as the left leg. Silvadene dressing was then placed by the nurse after removal of the old one with saline. Patient will need leg elevation on bed to decrease the swelling erythema of both lower legs. Were awaiting possible placement for the patient for more intensive wound care Results Laboratory Results: 01/21/17 01/21/17 08:29 08:29 Vitamin B12 233.0 L TSH 6.80 H Impressions: Tibia/Fibula X-Ray 01/19/17 00:00 IMPRESSION: No fracture or bone lesion. Degenerative knee changes. Foot X-Ray 01/19/17 13:13 IMPRESSION: As above. Guidance Fluoroscopy 01/20/17 00:00 IMPRESSION: SUCCESSFUL PLACEMENT OF A 5 FR DUAL LUMEN 51 CM PICC IN THE LEFT BASILIC VEIN. Interventional Vascular Procedure 01/20/17 00:00 IMPRESSION: SUCCESSFUL PLACEMENT OF A 5 FR DUAL LUMEN 51 CM PICC IN THE LEFT BASILIC VEIN. PICC Line Insertion 01/20/17 00:00 IMPRESSION: SUCCESSFUL PLACEMENT OF A 5 FR DUAL LUMEN 51 CM PICC IN THE LEFT BASILIC VEIN. Head CT 01/21/17 00:00 IMPRESSION: No CT evidence of acute intracranial hemorrhage, midline shift mass effect, or large territory acute ischemic change. Suspect old lacunar infarcts in the left wilfredo, left thalamus and bilateral basal ganglia from chronic white matter disease. EVIDENCE OF ACUTE STROKE: NO. Assessment & Plan - Diagnosis (1) Diabetic ulcer of both lower extremities Is this a current diagnosis for this admission?: Yes (2) Cellulitis of lower extremity Qualifiers: Laterality: unspecified laterality Qualified Code(s): L03.119 - Cellulitis of unspecified part of limb (3) Cellulitis of right leg Is this a current diagnosis for this admission?: Yes (4) Diabetes Qualifiers: Diabetes mellitus type: type 2 Diabetes mellitus complication status: with unspecified complications Diabetes mellitus industrial therapist insulin use: with group home use Qualified Code(s): E11.8 - Type 2 diabetes mellitus with unspecified complications (5) Gouty arthritis Is this a current diagnosis for this admission?: Yes (6) History of MRSA infection Is this a current diagnosis for this admission?: Yes
[2017-01-21] MEDS: NORMAL SALINE 10 ML SDV (SCHEDULED) IV SCH ×2 (15:35→22:27)
[2017-01-21] MEDS: ATORVASTATIN CALCIUM 10 MG TABLET PO SCH (21:30)
[2017-01-21] MEDS: CEFEPIME 1 GM/D5W RTU 1 GM/50 ML RTUPB IV SCH (21:32)
[2017-01-22] MEDS: GABAPENTIN 300 MG CAPSULE PO SCH ×3 (05:35→23:29)
[2017-01-22] MEDS: LANSOPRAZOLE 30 MG TAB.RAP.DR PO SCH (05:36)
[2017-01-22] MEDS: IBUPROFEN 800 MG TABLET PO PRN (08:16)
[2017-01-22] MEDS: NORMAL SALINE 1000 ML 1,000 ML IV PRN (08:28)
--- NOTE | 2017-01-22 09:20 | PDOC PROGRESS REPORT ---
Subjective Progress Note for:: 01/22/17 Subjective:: Patient is feeling better. Denies having any diarrhea. No nausea or vomiting. No chills or fever. No shortness of breath or chest pain. Patient able to ambulate. Physical Exam Vital Signs: Temp Pulse Resp BP Pulse Ox 97.8 F 82 22 H 145/55 H 96 01/21/17 23:43 01/21/17 23:43 01/21/17 23:43 01/21/17 23:43 01/21/17 23:43 Intake & Output 01/21/17 01/22/17 01/23/17 06:59 06:59 06:59 Intake Total 1950 Output Total 1200 Balance 750 Weight 172.36 kg General appearance: PRESENT: no acute distress, cooperative, morbidly obese Head exam: PRESENT: normocephalic Eye exam: PRESENT: EOMI Mouth exam: PRESENT: moist, neck supple Neck exam: ABSENT: JVD Respiratory exam: PRESENT: clear to auscultation kurt. ABSENT: rhonchi, wheezes Cardiovascular exam: PRESENT: RRR. ABSENT: gallop GI/Abdominal exam: PRESENT: hypoactive bowel sounds, soft. ABSENT: distended - Obese Extremities exam: PRESENT: +1 edema Neurological exam: PRESENT: alert, awake, oriented to person, oriented to place , oriented to time, oriented to situation Skin exam: PRESENT: dry. ABSENT: cyanosis Results Laboratory Results: 01/21/17 01/21/17 08:29 08:29 Vitamin B12 233.0 L TSH 6.80 H Impressions: Tibia/Fibula X-Ray 01/19/17 00:00 IMPRESSION: No fracture or bone lesion. Degenerative knee changes. Foot X-Ray 01/19/17 13:13 IMPRESSION: As above. Guidance Fluoroscopy 01/20/17 00:00 IMPRESSION: SUCCESSFUL PLACEMENT OF A 5 FR DUAL LUMEN 51 CM PICC IN THE LEFT BASILIC VEIN. Interventional Vascular Procedure 01/20/17 00:00 IMPRESSION: SUCCESSFUL PLACEMENT OF A 5 FR DUAL LUMEN 51 CM PICC IN THE LEFT BASILIC VEIN. PICC Line Insertion 01/20/17 00:00 IMPRESSION: SUCCESSFUL PLACEMENT OF A 5 FR DUAL LUMEN 51 CM PICC IN THE LEFT BASILIC VEIN. Head CT 01/21/17 00:00 IMPRESSION: No CT evidence of acute intracranial hemorrhage, midline shift mass effect, or large territory acute ischemic change. Suspect old lacunar infarcts in the left wilfredo, left thalamus and bilateral basal ganglia from chronic white matter disease. EVIDENCE OF ACUTE STROKE: NO. Assessment & Plan - Diagnosis (1) UTI (urinary tract infection) Is this a current diagnosis for this admission?: Yes (2) Chronic venous stasis dermatitis Is this a current diagnosis for this admission?: Yes (3) Diabetic ulcer of both lower extremities Is this a current diagnosis for this admission?: Yes (4) Lymphedema Is this a current diagnosis for this admission?: Yes (5) Morbid obesity Is this a current diagnosis for this admission?: Yes (6) CKD (chronic kidney disease), stage III Is this a current diagnosis for this admission?: Yes (7) Diabetes mellitus type 2 in obese Is this a current diagnosis for this admission?: Yes (8) Hyperlipidemia Qualifiers: Hyperlipidemia type: unspecified Qualified Code(s): E78.5 - Hyperlipidemia , unspecified Is this a current diagnosis for this admission?: Yes (9) Hypertension Qualifiers: Hypertension type: essential hypertension Qualified Code(s): I10 - Essential (primary) hypertension Is this a current diagnosis for this admission?: Yes - Time Time Spent with patient: Less than 15 minutes - Plan Summary Plan Summary: Continue current antibiotics for now. Follow cultures. Patient feels generally weak. In physical therapy.
[2017-01-22] MEDS: DOCUSATE SODIUM 100 MG CAPSULE PO SCH ×2 (09:28→18:38)
[2017-01-22] MEDS: LISINOPRIL 10 MG TABLET PO SCH (09:28)
[2017-01-22] MEDS: SILVER SULFADIAZINE 1% CREAM 400 GM TP SCH (09:28)
[2017-01-22] MEDS: ENOXAPARIN SODIUM INJ 40 MG/0.4 ML DISP.SYRIN SUBCUT SCH (09:28)
[2017-01-22] MEDS: CEFEPIME 1 GM/D5W RTU 1 GM/50 ML RTUPB IV SCH ×2 (09:28→23:27)
[2017-01-22] MEDS: NORMAL SALINE 10 ML SDV (SCHEDULED) IV SCH ×2 (09:29→23:30)
[2017-01-22] MEDS: NYSTATIN TOPICAL POWDER 15 GM TP SCH ×2 (10:54→18:38)
[2017-01-22] MEDS: VANCOMYCIN HCL 1,500 MG in DEXTROSE 5%-WATER 250 ML IV SCH (10:55)
--- NOTE | 2017-01-22 18:04 | PDOC PROGRESS REPORT ---
Subjective Progress Note for:: 01/22/17 Subjective:: Pains primarily along the left lower leg ulcer Physical Exam Vital Signs: Temp Pulse Resp BP Pulse Ox 98.4 F 73 17 116/51 L 97 01/22/17 11:57 01/22/17 11:57 01/22/17 11:57 01/22/17 11:57 01/22/17 11:57 Intake & Output 01/21/17 01/22/17 01/23/17 06:59 06:59 06:59 Intake Total 1950 Output Total 1200 Balance 750 Weight 172.36 kg Exam: Both lower legs with Silvadene dressing covered with Kerlix. Patient is complaining some whitish drainage coming out of the dressing and the nurse and I felt that it is just from her Silvadene topical medication Results Impressions: Tibia/Fibula X-Ray 01/19/17 00:00 IMPRESSION: No fracture or bone lesion. Degenerative knee changes. Foot X-Ray 01/19/17 13:13 IMPRESSION: As above. Guidance Fluoroscopy 01/20/17 00:00 IMPRESSION: SUCCESSFUL PLACEMENT OF A 5 FR DUAL LUMEN 51 CM PICC IN THE LEFT BASILIC VEIN. Interventional Vascular Procedure 01/20/17 00:00 IMPRESSION: SUCCESSFUL PLACEMENT OF A 5 FR DUAL LUMEN 51 CM PICC IN THE LEFT BASILIC VEIN. PICC Line Insertion 01/20/17 00:00 IMPRESSION: SUCCESSFUL PLACEMENT OF A 5 FR DUAL LUMEN 51 CM PICC IN THE LEFT BASILIC VEIN. Head CT 01/21/17 00:00 IMPRESSION: No CT evidence of acute intracranial hemorrhage, midline shift mass effect, or large territory acute ischemic change. Suspect old lacunar infarcts in the left wilfredo, left thalamus and bilateral basal ganglia from chronic white matter disease. EVIDENCE OF ACUTE STROKE: NO. Assessment & Plan - Diagnosis (1) Diabetic ulcer of both lower extremities Is this a current diagnosis for this admission?: Yes (2) Cellulitis of lower extremity Qualifiers: Laterality: left Qualified Code(s): L03.116 - Cellulitis of left lower limb Is this a current diagnosis for this admission?: Yes (3) Cellulitis of right leg Is this a current diagnosis for this admission?: No (4) Diabetes Qualifiers: Diabetes mellitus type: type 2 Diabetes mellitus complication status: with unspecified complications Diabetes mellitus emt intermediate insulin use: with emt intermediate use Qualified Code(s): E11.8 - Type 2 diabetes mellitus with unspecified complications (5) Gouty arthritis Is this a current diagnosis for this admission?: Yes (6) History of MRSA infection Is this a current diagnosis for this admission?: Yes - Time Time Spent with patient: Less than 15 minutes - Plan Summary Plan Summary: Continue Silvadene dressings to both lower leg ulcers. Continue leg elevations while in bed
[2017-01-22 21:58] LABS: CREATININE RESULT 1.43 mg/dL (0.52-1.25)
[2017-01-22] MEDS: ATORVASTATIN CALCIUM 10 MG TABLET PO SCH (23:30)
[2017-01-22] MEDS: OXYCODONE HCL IR 5 MG TABLET PO PRN (23:30)
[2017-01-23] MEDS: SILVER SULFADIAZINE 1% CREAM 400 GM TP SCH ×3 (04:30→21:21)
[2017-01-23] MEDS: VANCOMYCIN HCL 1,500 MG in DEXTROSE 5%-WATER 250 ML IV SCH (04:30)
[2017-01-23] MEDS: MORPHINE SULFATE 10 MG/ML INJ IV PRN (04:50)
[2017-01-23] MEDS: LANSOPRAZOLE 30 MG TAB.RAP.DR PO SCH (05:57)
[2017-01-23] MEDS: GABAPENTIN 300 MG CAPSULE PO SCH ×3 (05:57→21:20)
[2017-01-23] MEDS: NORMAL SALINE 1000 ML 1,000 ML IV PRN ×2 (08:49→21:21)
[2017-01-23] MEDS: CEFEPIME 1 GM/D5W RTU 1 GM/50 ML RTUPB IV SCH (09:41)
[2017-01-23] MEDS: LISINOPRIL 10 MG TABLET PO SCH (09:41)
[2017-01-23] MEDS: ENOXAPARIN SODIUM INJ 40 MG/0.4 ML DISP.SYRIN SUBCUT SCH (09:41)
[2017-01-23] MEDS: NORMAL SALINE 10 ML SDV (SCHEDULED) IV SCH ×2 (09:41→21:21)
[2017-01-23] MEDS: DOCUSATE SODIUM 100 MG CAPSULE PO SCH ×2 (09:41→18:25)
[2017-01-23] MEDS: NYSTATIN TOPICAL POWDER 15 GM TP SCH ×2 (09:42→18:25)
--- NOTE | 2017-01-23 10:39 | PDOC PROGRESS REPORT ---
Subjective Progress Note for:: 01/23/17 Subjective:: Still with left lower leg pain Physical Exam Vital Signs: Temp Pulse Resp BP Pulse Ox 97.6 F 67 20 131/44 H 100 01/23/17 08:36 01/23/17 08:36 01/23/17 08:36 01/23/17 08:36 01/23/17 08:36 Intake & Output 01/22/17 01/23/17 01/24/17 06:59 06:59 06:59 Intake Total 1950 2960 Output Total 1200 2000 Balance 750 960 Weight 172.36 kg 172.3 kg Exam: Left lower leg ulcer appears to be gradually improving Results Laboratory Results: 01/22/17 21:35 01/22/17 21:35 Creatinine 1.43 H Est GFR ( Amer) 44 L Est GFR (Non-Af Amer) 36 L Impressions: Tibia/Fibula X-Ray 01/19/17 00:00 IMPRESSION: No fracture or bone lesion. Degenerative knee changes. Foot X-Ray 01/19/17 13:13 IMPRESSION: As above. Guidance Fluoroscopy 01/20/17 00:00 IMPRESSION: SUCCESSFUL PLACEMENT OF A 5 FR DUAL LUMEN 51 CM PICC IN THE LEFT BASILIC VEIN. Interventional Vascular Procedure 01/20/17 00:00 IMPRESSION: SUCCESSFUL PLACEMENT OF A 5 FR DUAL LUMEN 51 CM PICC IN THE LEFT BASILIC VEIN. PICC Line Insertion 01/20/17 00:00 IMPRESSION: SUCCESSFUL PLACEMENT OF A 5 FR DUAL LUMEN 51 CM PICC IN THE LEFT BASILIC VEIN. Head CT 01/21/17 00:00 IMPRESSION: No CT evidence of acute intracranial hemorrhage, midline shift mass effect, or large territory acute ischemic change. Suspect old lacunar infarcts in the left wilfredo, left thalamus and bilateral basal ganglia from chronic white matter disease. EVIDENCE OF ACUTE STROKE: NO. Assessment & Plan - Diagnosis (1) Diabetic ulcer of both lower extremities Is this a current diagnosis for this admission?: Yes (2) Cellulitis of lower extremity Qualifiers: Laterality: left Qualified Code(s): L03.116 - Cellulitis of left lower limb Is this a current diagnosis for this admission?: Yes (3) Cellulitis of right leg Is this a current diagnosis for this admission?: No (4) Diabetes Qualifiers: Diabetes mellitus type: type 2 Diabetes mellitus complication status: with unspecified complications Diabetes mellitus senior care insulin use: with senior care use Qualified Code(s): E11.8 - Type 2 diabetes mellitus with unspecified complications (5) Gouty arthritis Is this a current diagnosis for this admission?: Yes (6) History of MRSA infection Is this a current diagnosis for this admission?: Yes - Time Time Spent with patient: 15-24 minutes - Plan Summary Plan Summary: Continue IV antibiotics Continue wound dressings Await placement in a skilled facility
--- NOTE | 2017-01-23 10:41 | PDOC PROGRESS REPORT ---
Subjective Progress Note for:: 01/23/17 Subjective:: Generalized malaise but no reported nausea or vomiting. No diarrhea. No shortness of breath or chest pain. No chills or fever. Able to ambulate but weak. Patient does not want to go back home. Physical Exam Vital Signs: Temp Pulse Resp BP Pulse Ox 97.6 F 67 20 131/44 H 100 01/23/17 08:36 01/23/17 08:36 01/23/17 08:36 01/23/17 08:36 01/23/17 08:36 Intake & Output 01/22/17 01/23/17 01/24/17 06:59 06:59 06:59 Intake Total 1950 2960 Output Total 1200 2000 Balance 750 960 Weight 172.36 kg 172.3 kg General appearance: PRESENT: no acute distress, morbidly obese Head exam: PRESENT: normocephalic Eye exam: PRESENT: EOMI Mouth exam: PRESENT: moist, neck supple Neck exam: ABSENT: JVD Respiratory exam: PRESENT: clear to auscultation kurt. ABSENT: rhonchi, wheezes Cardiovascular exam: PRESENT: RRR. ABSENT: gallop GI/Abdominal exam: PRESENT: normal bowel sounds, soft. ABSENT: distended - Obese Extremities exam: PRESENT: +1 edema Neurological exam: PRESENT: alert, awake, oriented to situation Skin exam: PRESENT: dry, warm. ABSENT: cyanosis Results Laboratory Results: 01/22/17 21:35 01/22/17 21:35 Creatinine 1.43 H Est GFR ( Amer) 44 L Est GFR (Non-Af Amer) 36 L Impressions: Tibia/Fibula X-Ray 01/19/17 00:00 IMPRESSION: No fracture or bone lesion. Degenerative knee changes. Foot X-Ray 01/19/17 13:13 IMPRESSION: As above. Guidance Fluoroscopy 01/20/17 00:00 IMPRESSION: SUCCESSFUL PLACEMENT OF A 5 FR DUAL LUMEN 51 CM PICC IN THE LEFT BASILIC VEIN. Interventional Vascular Procedure 01/20/17 00:00 IMPRESSION: SUCCESSFUL PLACEMENT OF A 5 FR DUAL LUMEN 51 CM PICC IN THE LEFT BASILIC VEIN. PICC Line Insertion 01/20/17 00:00 IMPRESSION: SUCCESSFUL PLACEMENT OF A 5 FR DUAL LUMEN 51 CM PICC IN THE LEFT BASILIC VEIN. Head CT 01/21/17 00:00 IMPRESSION: No CT evidence of acute intracranial hemorrhage, midline shift mass effect, or large territory acute ischemic change. Suspect old lacunar infarcts in the left wilfredo, left thalamus and bilateral basal ganglia from chronic white matter disease. EVIDENCE OF ACUTE STROKE: NO. Assessment & Plan - Diagnosis (1) UTI (urinary tract infection) Is this a current diagnosis for this admission?: Yes (2) Chronic venous stasis dermatitis Is this a current diagnosis for this admission?: Yes (3) Diabetic ulcer of both lower extremities Is this a current diagnosis for this admission?: Yes (4) Lymphedema Is this a current diagnosis for this admission?: Yes (5) Morbid obesity Is this a current diagnosis for this admission?: Yes (6) CKD (chronic kidney disease), stage III Is this a current diagnosis for this admission?: Yes (7) Diabetes mellitus type 2 in obese Is this a current diagnosis for this admission?: Yes (8) Hyperlipidemia Qualifiers: Qualified Code(s): E78.5 - Hyperlipidemia, unspecified Is this a current diagnosis for this admission?: Yes (9) Hypertension Qualifiers: Qualified Code(s): I10 - Essential (primary) hypertension Is this a current diagnosis for this admission?: Yes - Time Time Spent with patient: 25-34 minutes - Plan Summary Plan Summary: Discontinue vancomycin. Increase hydration and monitor creatinine as it is trending up. Continue cefepime as well. Start on oral doxycycline. Continue supportive care. landscape architect and planner for subacute rehabilitation.
[2017-01-23] MEDS: IBUPROFEN 800 MG TABLET PO PRN (11:42)
[2017-01-23] MEDS ORDERED: DOXYCYCLINE HYCLATE 100 MG TABLET PO ONE (12:00)
[2017-01-23] MEDS: OXYCODONE HCL IR 5 MG TABLET PO PRN (15:08)
[2017-01-23] MEDS: DOXYCYCLINE HYCLATE 100 MG TABLET PO SCH (21:20)
[2017-01-23] MEDS: ATORVASTATIN CALCIUM 10 MG TABLET PO SCH (21:20)
[2017-01-24] MEDS: MORPHINE SULFATE 10 MG/ML INJ IV PRN (02:11)
[2017-01-24 04:32] LABS: ANION GAP 11 (5-19); BLOOD UREA NITROGEN 18 mg/dL (7-20); CALCIUM 9.1 mg/dL (8.4-10.2); CARBON DIOXIDE 27 mmol/L (22-30); CHLORIDE 106 mmol/L (98-107); CREATININE RESULT 1.26 mg/dL (0.52-1.25); GLUCOSE 140 mg/dL (75-110); POTASSIUM 5.3 mmol/L (3.6-5.0); SODIUM 144.3 mmol/L (137-145)
[2017-01-24] MEDS: OXYCODONE HCL IR 5 MG TABLET PO PRN ×3 (04:38→23:05)
[2017-01-24] MEDS: LANSOPRAZOLE 30 MG TAB.RAP.DR PO SCH (06:39)
[2017-01-24] MEDS: GABAPENTIN 300 MG CAPSULE PO SCH ×3 (06:39→23:05)
--- NOTE | 2017-01-24 09:44 | PDOC PROGRESS REPORT ---
Subjective Progress Note for:: 01/24/17 Subjective:: Patient voices no complaints Physical Exam Vital Signs: Temp Pulse Resp BP Pulse Ox 100.4 F 111 H 19 128/53 H 78 L 01/24/17 07:51 01/24/17 07:51 01/23/17 23:49 01/24/17 07:51 01/24/17 07:51 Intake & Output 01/23/17 01/24/17 01/25/17 06:59 06:59 06:59 Intake Total 2960 1250 Output Total 2000 2800 Balance 960 -1550 Weight 172.3 kg 174.5 kg Extremities exam: PRESENT: other Results Laboratory Results: 01/24/17 04:10 01/24/17 04:10 Sodium 144.3 Potassium 5.3 H Chloride 106 Carbon Dioxide 27 Anion Gap 11 BUN 18 Creatinine 1.26 H Est GFR ( Amer) 51 L Est GFR (Non-Af Amer) 42 L Glucose 140 H Calcium 9.1 Impressions: Tibia/Fibula X-Ray 01/19/17 00:00 IMPRESSION: No fracture or bone lesion. Degenerative knee changes. Foot X-Ray 01/19/17 13:13 IMPRESSION: As above. Guidance Fluoroscopy 01/20/17 00:00 IMPRESSION: SUCCESSFUL PLACEMENT OF A 5 FR DUAL LUMEN 51 CM PICC IN THE LEFT BASILIC VEIN. Interventional Vascular Procedure 01/20/17 00:00 IMPRESSION: SUCCESSFUL PLACEMENT OF A 5 FR DUAL LUMEN 51 CM PICC IN THE LEFT BASILIC VEIN. PICC Line Insertion 01/20/17 00:00 IMPRESSION: SUCCESSFUL PLACEMENT OF A 5 FR DUAL LUMEN 51 CM PICC IN THE LEFT BASILIC VEIN. Head CT 01/21/17 00:00 IMPRESSION: No CT evidence of acute intracranial hemorrhage, midline shift mass effect, or large territory acute ischemic change. Suspect old lacunar infarcts in the left wilfredo, left thalamus and bilateral basal ganglia from chronic white matter disease. EVIDENCE OF ACUTE STROKE: NO. Assessment & Plan - Diagnosis (1) Chronic venous stasis dermatitis Is this a current diagnosis for this admission?: Yes Plan: Plan: 1. Continue local wound care, wraps. 2. Patient has a known history of noncompliance. Nonetheless would attempt to reassign her to the advanced wound center upon discharge.
[2017-01-24] MEDS: LISINOPRIL 10 MG TABLET PO SCH (10:13)
[2017-01-24] MEDS: DOXYCYCLINE HYCLATE 100 MG TABLET PO SCH ×2 (10:13→23:06)
[2017-01-24] MEDS: ENOXAPARIN SODIUM INJ 40 MG/0.4 ML DISP.SYRIN SUBCUT SCH (10:13)
[2017-01-24] MEDS: IBUPROFEN 800 MG TABLET PO PRN (10:14)
[2017-01-24] MEDS: NORMAL SALINE 10 ML SDV (SCHEDULED) IV SCH ×2 (10:14→23:07)
[2017-01-24] MEDS: NORMAL SALINE 10 ML SDV (AFTER EACH USE) IV PRN (10:14)
[2017-01-24] MEDS: DOCUSATE SODIUM 100 MG CAPSULE PO SCH ×2 (10:14→18:53)
[2017-01-24] MEDS: NYSTATIN TOPICAL POWDER 15 GM TP SCH ×2 (10:14→18:53)
--- NOTE | 2017-01-24 14:01 | PDOC PROGRESS REPORT ---
Subjective Progress Note for:: 01/24/17 Subjective:: Patient denies any diarrhea, nausea and vomiting, chills, shortness of breath, PND orthopnea. Patient reportedly has low oxygen saturation earlier but she is comfortable. Patient placed on 2 L nasal cannula oxygen and O2 saturation improved. She denies any distress at all. Physical Exam Vital Signs: Temp Pulse Resp BP Pulse Ox 98.7 F 91 19 104/57 L 97 01/24/17 11:54 01/24/17 11:54 01/23/17 23:49 01/24/17 11:54 01/24/17 11:54 Intake & Output 01/23/17 01/24/17 01/25/17 06:59 06:59 06:59 Intake Total 2960 1250 Output Total 2000 2800 Balance 960 -1550 Weight 172.3 kg 174.5 kg General appearance: PRESENT: no acute distress, morbidly obese Head exam: PRESENT: normocephalic Eye exam: PRESENT: EOMI Mouth exam: PRESENT: moist, neck supple Neck exam: ABSENT: JVD Respiratory exam: PRESENT: clear to auscultation kurt. ABSENT: rhonchi, wheezes Cardiovascular exam: PRESENT: RRR GI/Abdominal exam: PRESENT: hypoactive bowel sounds. ABSENT: distended - Obese Extremities exam: PRESENT: +1 edema Neurological exam: PRESENT: alert, awake, oriented to situation Skin exam: PRESENT: dry, warm. ABSENT: cyanosis Results Laboratory Results: 01/24/17 04:10 01/24/17 04:10 Sodium 144.3 Potassium 5.3 H Chloride 106 Carbon Dioxide 27 Anion Gap 11 BUN 18 Creatinine 1.26 H Est GFR ( Amer) 51 L Est GFR (Non-Af Amer) 42 L Glucose 140 H Calcium 9.1 Impressions: Tibia/Fibula X-Ray 01/19/17 00:00 IMPRESSION: No fracture or bone lesion. Degenerative knee changes. Foot X-Ray 01/19/17 13:13 IMPRESSION: As above. Guidance Fluoroscopy 01/20/17 00:00 IMPRESSION: SUCCESSFUL PLACEMENT OF A 5 FR DUAL LUMEN 51 CM PICC IN THE LEFT BASILIC VEIN. Interventional Vascular Procedure 01/20/17 00:00 IMPRESSION: SUCCESSFUL PLACEMENT OF A 5 FR DUAL LUMEN 51 CM PICC IN THE LEFT BASILIC VEIN. PICC Line Insertion 01/20/17 00:00 IMPRESSION: SUCCESSFUL PLACEMENT OF A 5 FR DUAL LUMEN 51 CM PICC IN THE LEFT BASILIC VEIN. Head CT 01/21/17 00:00 IMPRESSION: No CT evidence of acute intracranial hemorrhage, midline shift mass effect, or large territory acute ischemic change. Suspect old lacunar infarcts in the left wilfredo, left thalamus and bilateral basal ganglia from chronic white matter disease. EVIDENCE OF ACUTE STROKE: NO. Assessment & Plan - Diagnosis (1) UTI (urinary tract infection) Is this a current diagnosis for this admission?: Yes (2) Chronic venous stasis dermatitis Is this a current diagnosis for this admission?: Yes (3) Diabetic ulcer of both lower extremities Is this a current diagnosis for this admission?: Yes (4) Lymphedema Is this a current diagnosis for this admission?: Yes (5) Morbid obesity Is this a current diagnosis for this admission?: Yes (6) CKD (chronic kidney disease), stage III Is this a current diagnosis for this admission?: Yes (7) Diabetes mellitus type 2 in obese Is this a current diagnosis for this admission?: Yes (8) Hyperlipidemia Qualifiers: Hyperlipidemia type: unspecified Qualified Code(s): E78.5 - Hyperlipidemia , unspecified Is this a current diagnosis for this admission?: Yes (9) Hypertension Qualifiers: Hypertension type: essential hypertension Qualified Code(s): I10 - Essential (primary) hypertension Is this a current diagnosis for this admission?: Yes - Time Time Spent with patient: 25-34 minutes - Plan Summary Plan Summary: Continue antibiotics, obtain a chest x-ray. Awaiting subacute facility bed for rehab. Continue supplemental oxygen. Wound care per surgical service.
[2017-01-24] MEDS ORDERED: SODIUM POLYSTYRENE SULFONATE 15 GM/60 ML PO ONE (14:30)
--- NOTE | 2017-01-24 14:50 | RADIOLOGY REPORT (SQ) ---
EXAM DESCRIPTION: CHEST SINGLE VIEW COMPLETED DATE/TIME: 01/24/2017 2:43 pm REASON FOR STUDY: hypoxia COMPARISON: Chest films 08/11/2016, 09/22/2016 EXAM PARAMETERS: NUMBER OF VIEWS: One view. TECHNIQUE: Single frontal radiographic view of the chest acquired. RADIATION DOSE: NA LIMITATIONS: None. FINDINGS: LUNGS AND PLEURA: No opacities, masses or pneumothorax. No pleural effusion. MEDIASTINUM AND HILAR STRUCTURES: No masses. Contour normal. HEART AND VASCULAR STRUCTURES: Heart normal in size. Normal vasculature. BONES: No acute findings. HARDWARE: Left PICC line tip superior vena cava. OTHER: No other significant finding. IMPRESSION: No acute infiltrates. Left PICC line in good positioning TECHNICAL DOCUMENTATION: JOB ID: [id number]
[2017-01-24] MEDS: SILVER SULFADIAZINE 1% CREAM 400 GM TP SCH ×2 (15:26→23:07)
[2017-01-24] MEDS: NORMAL SALINE 1000 ML 1,000 ML IV PRN ×2 (15:29→15:43)
[2017-01-24] MEDS: ATORVASTATIN CALCIUM 10 MG TABLET PO SCH (23:06)
[2017-01-25] MEDS: MORPHINE SULFATE 10 MG/ML INJ IV PRN (04:13)
[2017-01-25] MEDS: NORMAL SALINE 1000 ML 1,000 ML IV PRN (04:14)
[2017-01-25] MEDS: LANSOPRAZOLE 30 MG TAB.RAP.DR PO SCH (05:57)
[2017-01-25] MEDS: OXYCODONE HCL IR 5 MG TABLET PO PRN ×2 (05:57→10:38)
[2017-01-25] MEDS: GABAPENTIN 300 MG CAPSULE PO SCH ×3 (05:58→22:19)
--- NOTE | 2017-01-25 08:58 | PDOC TRANSFER SUMMARY ---
General - Admit/Disc Date/PCP Admission Date/Primary Care Provider: 01/21/17 08:06 Discharge Date: 01/25/17 - Discharge Diagnosis (1) Diabetic ulcer of both lower extremities Is this a current diagnosis for this admission?: Yes Summary: Being treated with doxycycline. The patient also is getting local wound care. Silvadene applied to wound twice daily covered with a 4 x 4 and Kerlix twice daily. (2) Cellulitis of left leg Is this a current diagnosis for this admission?: Yes (3) Chronic venous stasis dermatitis Is this a current diagnosis for this admission?: Yes (4) Diabetes Is this a current diagnosis for this admission?: Yes (5) Gouty arthritis Is this a current diagnosis for this admission?: Yes (6) Lymphedema Is this a current diagnosis for this admission?: Yes (7) Morbid obesity Is this a current diagnosis for this admission?: Yes (8) UTI (urinary tract infection) Is this a current diagnosis for this admission?: Yes Summary: Growing Citrobacter from urine culture. (9) CKD (chronic kidney disease), stage III Is this a current diagnosis for this admission?: Yes (10) Hyperlipidemia Is this a current diagnosis for this admission?: Yes (11) Hypertension Is this a current diagnosis for this admission?: Yes - Additional Information Resuscitation Status: Full Code Discharge Diet: Cardiac, Diabetic Discharge Activity: Activity As Tolerated Home Medications: Atorvastatin Calcium [Lipitor 10 mg Tablet] 10 mg PO QHS 01/20/17 Ergocalciferol (Vitamin D2) [Drisdol 50,000 unit (1.25MG) Capsule] 50,000 unit PO SEGURA@1000 01/20/17 Gabapentin [Neurontin 300 mg Capsule] 300 mg PO DAILYP PRN 01/20/17 Glipizide [Glucotrol 5 mg Tablet] 5 mg PO DAILY 01/20/17 Lisinopril/Hydrochlorothiazide [Zestoretic 20-25 mg Tablet] 1 each PO DAILY 09/01 Silver Sulfadiazine [Silvadene 1% Cream 400 gm] 1 applic TP BID 01/20/17 Doxycycline Hyclate [Vibramycin 100 mg Tablet] 100 mg PO Q12 #20 tablet Flu Vacc [id number] [id number] Up/Pf [Fluzone Adlt Quad [id number] Vac 0.5 ml Syr] 0.5 ml IM .DISCHARGE PRN disp.syrin 01/25/17 Insulin Regular, Human [Humulin R (Reg) Insulin 100 unit/mL] 0 - 12 unit SUBCUT ACHSP PRN unit 01/25/17 Nystatin [Mycostatin Topical Powder 15 gm] 1 applic TP BID bottle 01/25/17 Oxycodone HCl/Acetaminophen [Percocet 5-325 mg Tablet] 1 tab PO Q6HP PRN #10 tablet 01/25/17 History of Present Illness Admission Date/PCP: 01/21/17 08:06 History of Present Illness: 71-year-old female with morbid obesity, diabetes, chronic venous stasis ulcers who presented with leg ulcers for the last several months. The patient has been going to the wound clinic getting home health management of her wounds. The patient was not able to care for herself anymore and she was brought in for further treatment. Patient complained of foul-smelling drainage. The patient also was found to have a urinary tract infection. Is felt that the patient would need surgical debridement also. Hospital Course Hospital Course: 71-year-old female with diabetes, morbid obesity, chronic venous stasis ulcers and lymphedema who presented with bilateral leg ulcers. She had worsening drainage. The patient had been treated as an outpatient the wound clinic. Patient was admitted and started on antibiotics. The patient also was evaluated by surgery. Surgery recommended Treating with Silvadene twice daily covered with a 4 x 4 and Kerlix over top of that. Patient did get some local wound debridement by surgery also. The patient was put on doxycycline and her blood cultures grew out staph epidermidis 1 which most likely was a contaminant. She did have a urinary tract infection that grew out Citrobacter. Patient will complete an additional 10 days of doxycycline. The patient also has diabetes and hypertension hyperlipidemia all of which been stable during this hospitalization. Patient is to be transferred to [facility] nurse facility for continued wound care. Patient will need Silvadene twice daily to the affected areas covered with a 4 x 4 and Kerlix. Physical Exam Vital Signs: Temp Pulse Resp BP Pulse Ox 97.8 F 76 16 126/73 H 93 01/24/17 23:44 01/24/17 23:44 01/24/17 23:44 01/24/17 23:44 01/24/17 23:44 Intake & Output 01/24/17 01/25/17 01/26/17 06:59 06:59 06:59 Intake Total 1250 4386 Output Total 2800 2600 Balance -1550 1786 Weight 174.5 kg 174.5 kg General appearance: PRESENT: no acute distress Eye exam: PRESENT: conjunctiva pink. ABSENT: scleral icterus Ear exam: PRESENT: normal external ear exam Mouth exam: PRESENT: moist, tongue midline Neck exam: ABSENT: JVD Respiratory exam: PRESENT: clear to auscultation kurt. ABSENT: rales, rhonchi, wheezes Cardiovascular exam: PRESENT: RRR. ABSENT: diastolic murmur, rubs, systolic murmur GI/Abdominal exam: PRESENT: normal bowel sounds, soft. ABSENT: distended, guarding, mass, organolmegaly, rebound, tenderness Extremities exam: PRESENT: pedal edema, tenderness, other - Erythema on the bilateral shins. The left stewart shows an area of induration and skin breakdown stage III no purulent drainage.. ABSENT: calf tenderness, clubbing Neurological exam: PRESENT: alert, awake, oriented to person, oriented to place , oriented to time, oriented to situation, CN II-XII grossly intact. ABSENT: motor sensory deficit Psychiatric exam: PRESENT: appropriate affect Skin exam: PRESENT: other - Erythematous shins bilaterally. The left stewart shows an area approximately 3" x 4" that is open stage II-III with no purulent drainage but erythematous with some granulation tissue present covered with some Silvadene. Results Laboratory Results: 01/24/17 04:10 Impressions: Tibia/Fibula X-Ray 01/19/17 00:00 IMPRESSION: No fracture or bone lesion. Degenerative knee changes. Foot X-Ray 01/19/17 13:13 IMPRESSION: As above. Guidance Fluoroscopy 01/20/17 00:00 IMPRESSION: SUCCESSFUL PLACEMENT OF A 5 FR DUAL LUMEN 51 CM PICC IN THE LEFT BASILIC VEIN. Interventional Vascular Procedure 01/20/17 00:00 IMPRESSION: SUCCESSFUL PLACEMENT OF A 5 FR DUAL LUMEN 51 CM PICC IN THE LEFT BASILIC VEIN. PICC Line Insertion 01/20/17 00:00 IMPRESSION: SUCCESSFUL PLACEMENT OF A 5 FR DUAL LUMEN 51 CM PICC IN THE LEFT BASILIC VEIN. Head CT 01/21/17 00:00 IMPRESSION: No CT evidence of acute intracranial hemorrhage, midline shift mass effect, or large territory acute ischemic change. Suspect old lacunar infarcts in the left wilfredo, left thalamus and bilateral basal ganglia from chronic white matter disease. EVIDENCE OF ACUTE STROKE: NO. Chest X-Ray 01/24/17 00:00 IMPRESSION: No acute infiltrates. Left PICC line in good positioning Transfer Plan - Disposition Transfer Plan: Patient is to be transferred to [facility] facility. Will follow up with the wound clinic in 1 week. Follow-up with primary care in 2 weeks. - Time Spent with Patient Time spent with patient: Greater than 30 Minutes Qualifiers PATEINT BEING DISCHARGED WITH ANY OF THE FOLLOWING DIAGNOSIS?: No Plan Discharge Plan: Transfer to [facility] facility stay. Time Spent: Greater than 30 Minutes
[2017-01-25] MEDS: DOCUSATE SODIUM 100 MG CAPSULE PO SCH ×2 (10:38→18:15)
[2017-01-25] MEDS: DOXYCYCLINE HYCLATE 100 MG TABLET PO SCH ×2 (10:39→22:19)
[2017-01-25] MEDS: NORMAL SALINE 10 ML SDV (SCHEDULED) IV SCH ×2 (10:41→22:15)
[2017-01-25] MEDS: SILVER SULFADIAZINE 1% CREAM 400 GM TP SCH ×2 (10:45→22:20)
[2017-01-25] MEDS: NYSTATIN TOPICAL POWDER 15 GM TP SCH ×2 (10:46→18:15)
[2017-01-25] MEDS: ENOXAPARIN SODIUM INJ 40 MG/0.4 ML DISP.SYRIN SUBCUT SCH (10:46)
[2017-01-25] MEDS: IBUPROFEN 800 MG TABLET PO PRN ×2 (12:43→22:19)
[2017-01-25 21:50] VITALS: BP 147/75
[2017-01-25] MEDS: ATORVASTATIN CALCIUM 10 MG TABLET PO SCH (22:19)
== END 2017-01-25 23:00 | DRG 638 ==
LOC: ER 13:06 → OBSVTOIN 16:38 → EH 16:38 → UNDOADMIN 16:38 → INTOOBSV 16:38 → EH 18:42 → 4N 18:42 → EH 01-21 08:06
PROC: 02HV33Z Insertion of Infusion Device into Superior Vena Cava, Percutaneous Approach (ICD-10-PCS; principal; 2017-01-20)
PROC: B518ZZA Fluoroscopy of Superior Vena Cava, Guidance (ICD-10-PCS; 2017-01-20)
PROC: B548ZZA Ultrasonography of Superior Vena Cava, Guidance (ICD-10-PCS; 2017-01-20)
PROC: 5A09457 Assistance with Respiratory Ventilation, 24-96 Consecutive Hours, Continuous Positive Airway Pressure (ICD-10-PCS; 2017-01-21)
PROC: 3E0234Z Introduction of Serum, Toxoid and Vaccine into Muscle, Percutaneous Approach (ICD-10-PCS; 2017-01-25)
DX: E11.622 Type 2 diabetes mellitus with other skin ulcer (principal); L97.929 Non-pressure chronic ulcer of unspecified part of left lower leg with unspecified severity; L97.919 Non-pressure chronic ulcer of unspecified part of right lower leg with unspecified severity; Z68.44 Body mass index [BMI] 60.0-69.9, adult; N39.0 Urinary tract infection, site not specified; L03.115 Cellulitis of right lower limb; L03.116 Cellulitis of left lower limb; N30.00 Acute cystitis without hematuria; I87.2 Venous insufficiency (chronic) (peripheral); M10.9 Gout, unspecified; E66.01 Morbid (severe) obesity due to excess calories; E11.22 Type 2 diabetes mellitus with diabetic chronic kidney disease; I12.9 Hypertensive chronic kidney disease with stage 1 through stage 4 chronic kidney disease, or unspecified chronic kidney disease; N18.3 Chronic kidney disease, stage 3 (moderate); B96.89 Other specified bacterial agents as the cause of diseases classified elsewhere; Z60.2 Problems related to living alone; E78.5 Hyperlipidemia, unspecified; E11.51 Type 2 diabetes mellitus with diabetic peripheral angiopathy without gangrene; G47.30 Sleep apnea, unspecified; K21.9 Gastro-esophageal reflux disease without esophagitis; M19.90 Unspecified osteoarthritis, unspecified site; F32.9 Major depressive disorder, single episode, unspecified; Z79.899 Other long term (current) drug therapy; Z86.14 Personal history of Methicillin resistant Staphylococcus aureus infection; Z23 Encounter for immunization; Z80.9 Family history of malignant neoplasm, unspecified; Z82.49 Family history of ischemic heart disease and other diseases of the circulatory system
CPT/HCPCS: 36415; 36569; 70450; 71010; 76937; 77001; 80048; 80053; 80202; 81001; 82565; 82607; 82962; 83605; 84443; 85025; 85610; 85730; 87040; 87070; 87077; 87086; 87088; 87186; 87205; 90686; 94660; 99284; C1769; G8978-GP; G8979-GP; G8980-GP; J0692; J1335; J1642; J1650; J2270; J2405; J3370; J3490; J7030; J7060

== ENCOUNTER → 2017-03-05 | Outpatient (CLI) | payer MEDICARE, OTHER ==
[2017-03-05 18:42] LABS: APPEARANCE,URINE CLOUDY; BILIRUBIN,URINE NEGATIVE (NEGATIVE); GLUCOSE, URINE NEGATIVE (NEGATIVE); KETONES,URINE NEGATIVE (NEGATIVE); LEUKOCYTE ESTERASE,URINE LARGE (NEGATIVE); NITRITE,URINE POSITIVE (NEGATIVE); PROTEIN,URINE 100 mg/dL (NEGATIVE); URINE SPECIFIC GRAVITY 1.019; UROBILINOGEN,URINE NEGATIVE mg/dL (<2.0)
== END ==
LOC: LAB 18:30
PROVIDERS: ATTEND Internal Medicine
DX: N39.0 Urinary tract infection, site not specified (principal)
CPT/HCPCS: 81001; 87086; 87088; 87186

== ENCOUNTER 2017-04-01 04:18 | Emergency (ER) | payer MEDICARE, OTHER ==
--- NOTE | 2017-04-01 04:59 | RADIOLOGY REPORT (SQ) ---
EXAM DESCRIPTION: KNEE RIGHT 2 VIEWS CLINICAL HISTORY: fall COMPARISON: None. FINDINGS: 2 views of the right knee. No acute fracture identified. No definite joint effusion. 3 compartment joint space narrowing and marginal osteophytosis, most severe in the medial and patellofemoral compartments. Osteopenia. IMPRESSION: 1. No acute fracture or dislocation. 2. [id number] 3 compartment osteoarthritic change.
--- NOTE | 2017-04-01 05:24 | ER Document Report ---
ED Fall - General Chief Complaint: Fall Injury Stated Complaint: FALL/KNEE PAIN Time Seen by Provider: 04/01/17 04:32 Mode of Arrival: Medic Information source: Patient TRAVEL OUTSIDE OF THE [place] IN LAST 30 DAYS: No - HPI Patient complains to provider of: rolled out of bed and landed on right knee Occurred: Just prior to arrival Where: [facility] Associated symptoms: None Location of injury/pain: Knee Quality of pain: Throbbing Severity: Moderate Pain Level: 2 - Related data Allergies/Adverse Reactions: adhesive [Adhesive] Allergy (Verified 01/19/17 13:11) No Known Drug Allergies Allergy (Verified 01/19/17 13:11) Past Medical History - General Information source: Patient - Social History Smoking Status: Never Smoker Cigarette use (# per day): No Chew tobacco use (# tins/day): No Smoking Education Provided: No Frequency of alcohol use: None Drug Abuse: None Lives with: [facility] Family History: CAD, Malignancy Patient has suicidal ideation: No Patient has homicidal ideation: No - Past Medical History Cardiac Medical History: Reports: Hx Hypercholesterolemia, Hx Hypertension, Hx Peripheral Vascular Disease Denies: Hx Congestive Heart Failure, Hx DVT, Hx Heart Attack, Hx Pulmonary Embolism Pulmonary Medical History: Reports: Hx Sleep Apnea Denies: Hx Asthma, Hx COPD Neurological Medical History: Denies: Hx Seizures Endocrine Medical History: Reports: Hx Diabetes Mellitus Type 2. Denies: Hx Diabetes Mellitus Type 1, Hx Hyperthyroidism, Hx Hypothyroidism Renal/ Medical History: Denies: Hx Peritoneal Dialysis GI Medical History: Reports: Hx Gastroesophageal Reflux Disease - Distant history of same; no recent symptoms.. Denies: Hx Cirrhosis, Hx Hepatitis Musculoskeltal Medical History: Reports Hx Arthritis Skin Medical History: Reports Hx Cellulitis, Reports Hx MRSA Psychiatric Medical History: Reports: Hx Depression - Denies suicidal or homicidal ideation. Infectious Medical History: Reports: Hx MRSA - Diagnosed August 2016.. Denies: Hx C-Diff, Hx Hepatitis Past Surgical History: Reports: Hx Orthopedic Surgery, Other - Wound debridement - Immunizations Immunizations up to date: No Hx Diphtheria, Pertussis, Tetanus Vaccination: Yes Review of Systems - Review of Systems Constitutional: No symptoms reported EENT: No symptoms reported Cardiovascular: No symptoms reported Respiratory: No symptoms reported Gastrointestinal: No symptoms reported Genitourinary: No symptoms reported Female Genitourinary: No symptoms reported Musculoskeletal: Joint swelling, Muscle pain Skin: No symptoms reported Hematologic/Lymphatic: Other - chronic wounds left leg Neurological/Psychological: No symptoms reported Physical Exam - Vital signs Vitals: Temp Pulse Resp BP Pulse Ox 97.6 F 66 26 H 145/74 H 96 04/01/17 04:26 04/01/17 04:26 04/01/17 04:26 04/01/17 04:26 04/01/17 04:26 - Notes Notes: PHYSICAL EXAMINATION: GENERAL: Morbidly obese female lying in bed. No acute distress. HEAD: Atraumatic, normocephalic. EYES: Pupils equal round and reactive to light, extraocular movements intact, conjunctiva are normal. ENT: Nares patent, oropharynx clear without exudates. Moist mucous membranes. NECK: Tenderness with palpation. No lymphadenopathy. LUNGS: Breath sounds clear to auscultation bilaterally and equal. No wheezes rales or rhonchi. HEART: Regular rate and rhythm without murmurs. Exam limited by body habitus ABDOMEN: nontender No guarding, no rebound. No masses appreciated. Female : deferred Musculoskeletal: Right knee ecchymotic swollen and tender. No traumatic effusion appreciated. Patient has her left lower extremity wrapped from her foot up to her mid calf. Her toes are warm and pink. Patient has some erythematous areas to her redundant tissue on her thighs bilaterally. NEUROLOGICAL: Cranial nerves grossly intact. Normal speech. Normal sensory, motor exams PSYCH: Normal mood, normal affect. SKIN: Warm, Dry, normal turgor, no rashes or lesions noted. Course - Vital Signs Vital signs: Temp Pulse Resp BP Pulse Ox 97.6 F 72 22 H 145/75 H 98 04/01/17 04:43 04/01/17 04:43 04/01/17 04:43 04/01/17 04:43 04/01/17 04:43 - Diagnostic Test Radiology reviewed: Image reviewed, Reports reviewed Radiology results interpreted by me: 04/01/17 05:24 No fracture positive osteoarthritis Discharge - Discharge Clinical Impression: Fall, Contusion of right knee Condition: Stable Disposition: SNF-Other Additional Instructions: Continue his prescriptions. Ice to right knee for 10 minutes every 2 hours for the next 10. Return to the emergency department if you have any concerns. Please follow-up the primary medical doctor as needed.
[2017-04-01] MEDS ORDERED: TRAMADOL HCL 50 MG TABLET PO ONE ×2 (05:25→14:18)
[2017-04-01] MEDS ORDERED: IBUPROFEN 600 MG TABLET PO ONE (08:58)
[2017-04-01] MEDS ORDERED: ACETAMINOPHEN 325 MG TABLET PO ONE (08:58)
[2017-04-01 12:54] VITALS: BP 156/67
== END 2017-04-01 14:35 ==
LOC: ER 04:18
DX: S80.01XA Contusion of right knee, initial encounter (principal); M25.561 Pain in right knee; W19.XXXA Unspecified fall, initial encounter
CPT/HCPCS: 99285; 82962; 73560; A9270 ×3

== ENCOUNTER 2017-04-07 10:44 | Emergency (ER) | payer MEDICARE, OTHER ==
--- NOTE | 2017-04-07 11:06 | ER Document Report ---
ED Fall - General Chief Complaint: Fall Stated Complaint: FALL Time Seen by Provider: 04/07/17 10:51 Notes: Patient is a 71-year-old female who presents emergency department after a fall suffered a [facility]. Patient states that she was trying to rollover out of bed landing to her however around wheelchair but she lost her balance and fell on the floor landing on her bottom and cut her leg on a loose screw on her wheelchair. She is unaware of her allergies, home medications, tetanus status. Review of the chart does not show any evidence of blood thinners. Did test positive for MRSA back in August. Does have evidence of a chronic healing wound on her left lower leg which is why she is staying at [facility] for wound care. past medical history significant for high blood pressure, diabetesis Denies any head injury. Denies any loss of consciousness, nausea, vomiting, headache, vision changes, confusion. TRAVEL OUTSIDE OF THE [place] IN LAST 30 DAYS: No - Related data Allergies/Adverse Reactions: adhesive [Adhesive] Allergy (Verified 01/19/17 13:11) No Known Drug Allergies Allergy (Verified 01/19/17 13:11) Past Medical History - Social History Smoking Status: Smoker,Current Status Unk Family History: CAD, Malignancy - Past Medical History Cardiac Medical History: Reports: Hx Hypercholesterolemia, Hx Hypertension, Hx Peripheral Vascular Disease Denies: Hx Congestive Heart Failure, Hx DVT, Hx Heart Attack, Hx Pulmonary Embolism Pulmonary Medical History: Reports: Hx Sleep Apnea Denies: Hx Asthma, Hx COPD Neurological Medical History: Denies: Hx Seizures Endocrine Medical History: Reports: Hx Diabetes Mellitus Type 2. Denies: Hx Diabetes Mellitus Type 1, Hx Hyperthyroidism, Hx Hypothyroidism Renal/ Medical History: Denies: Hx Peritoneal Dialysis GI Medical History: Reports: Hx Gastroesophageal Reflux Disease - Distant history of same; no recent symptoms.. Denies: Hx Cirrhosis, Hx Hepatitis Musculoskeltal Medical History: Reports Hx Arthritis Skin Medical History: Reports Hx Cellulitis, Reports Hx MRSA Psychiatric Medical History: Reports: Hx Depression - Denies suicidal or homicidal ideation. Infectious Medical History: Reports: Hx MRSA - Diagnosed August 2016.. Denies: Hx C-Diff, Hx Hepatitis Past Surgical History: Reports: Hx Orthopedic Surgery, Other - Wound debridement - Immunizations Immunizations up to date: No Hx Diphtheria, Pertussis, Tetanus Vaccination: Yes Review of Systems - Review of Systems Constitutional: No symptoms reported EENT: No symptoms reported Cardiovascular: No symptoms reported Respiratory: No symptoms reported Gastrointestinal: No symptoms reported Musculoskeletal: See HPI Skin: See HPI Neurological/Psychological: No symptoms reported -: Yes All other systems reviewed and negative Physical Exam - Vital signs Vitals: Resp 20 04/07/17 10:46 - Notes Notes: PHYSICAL EXAMINATION: GENERAL: Well-appearing, well-nourished and in no acute distress. GCS 15 HEAD: Atraumatic, normocephalic. EYES: Pupils equal round and reactive to light, extraocular movements intact, sclera anicteric, conjunctiva are normal. ENT: Nares patent, oropharynx clear without exudates. Moist mucous membranes. No hemanotympanum . No blood in nares. No dental fracture NECK: Normal range of motion, supple without lymphadenopathy. Trachea midline LUNGS: Breath sounds clear to auscultation bilaterally and equal. No wheezes rales or rhonchi. HEART: Regular rate and rhythm without murmurs. Pulses intact all throughout. ABDOMEN: Soft, nontender, nondistended abdomen. No guarding, no rebound. No masses appreciated. Musculoskeletal: Normal range of motion, no pitting or edema. No cyanosis. Hip non tender, stable. NEUROLOGICAL: Cranial nerves grossly intact. Normal speech, normal gait. Normal sensory, motor, and reflex exams. PSYCH: Normal mood, normal affect. SKIN: Warm. Left lower leg with chronic healing wound measuring approx. 6cm in diameter without active bleeding or purluent drainage. Right leg with evidence of two lacerations with minimal bleeding. Proxmial tibial lac 7cm long involving dermis and subq fat. Second laceration vertical along tibia down to fascia 12cm long to flap that is 12cm lateral. Course - Re-evaluation Re-evalutation: 04/07/17 16:10 Patient is a 71-year-old female hemodynamic stable, no acute distress and afebrile. Patient did not suffer any evidence of acute head trauma and does not meet CT criteria. Low clinical suspicion for any acute intracranial hemorrhage or fracture. Tetanus status updated. Patient did receive 1 g of Rocephin. Wound was copiously irrigated with the bedside hemostasis performed and primary closure attempted. Avulsed tissue over the anterior aspect of the ankle able to close over the fascia with approximately 2 inches worth of subcutaneous fat exposed. Dressed with Xeroform dressing. Patient educated on signs and symptoms indicating return to the emergency department otherwise wound care check with primary care to be done in about 6-7 days for evaluation for wound VAC of this area as necessary. A Chuckie drain was left along the vertical incision along the tibia to help decrease any fluid collections. This is to be removed during this wound check. I did call over to nursing facility [facility] to discuss wound care as well as ED return precautions and primary care follow-up. I did speak with Kirsten the nurse assigned to Beth Monroy at the facility. Otherwise patient resting comfortably and transportation is being organized to return her back to [facility]. - Vital Signs Vital signs: Temp Pulse Resp BP Pulse Ox 20 04/07/17 16:40 - Diagnostic Test Radiology reviewed: Image reviewed, Reports reviewed Procedures - Laceration/Wound Repair Right Leg Wound length (cm): 0 - two lacerations see note Wound's Depth, Shape: Other - 1: 7 inch diagonal over prox tibia into sub q fat 2: 12 long to flap 12 wide down fascia Laceration pre-procedure: Sterile PPE donned, Betadine prep applied, Sterile drapes applied Anesthetic type: Other - 1.5% bupivicaine with epi Wound explored: Clean, No foreign body removed Irrigated w/ Saline (mLs): 2,000 Wound Debrided: Minimal Wound Repaired With: Sutures Suture Size/Type: 3:0, Nylon Number of Sutures: 0 - running whip stitch Layer Closure?: No Post-procedure wound care: Sterile dressing applied Post-procedure NV exam normal: Yes Complications: No Critical Care Note - Critical Care Note Total time excluding time spent on procedures (mins): 0 Discharge - Discharge Clinical Impression: Lymphedema Lacerations of multiple sites of right leg Qualifiers: Encounter type: initial encounter Qualified Code(s): S81.811A - Laceration without foreign body, right lower leg, initial encounter Condition: Stable Disposition: HOME-ASSISTED LIVING Additional Instructions: -There is a site on the left ankle with exposed fat due to swollen tissue. Please observe this area for redness, richmond drainage, swelling, increased pain. You will need a wound check in this area due to possible need for a wound vac. -Please clean this site at least twice a day and dress with xeroform guaze, keep clean covered and dry. -There is a drain in your wound, it looks like a richmond hose. Please leave this in place to be removed in 6-7 days for your wound check by a health care provider -Take your antibiotics as directed -Please return to the ED with a fever (103), altered mental status, increased redness/pain/richmond drainage LACERATION CARE: Your laceration has been sutured to keep the skin edges aligned during healing. The time of suture removal depends on the nature and location of your cut. Please follow the care instructions the doctor has outlined for you and return for further care, according to the schedule you've been given. Keep the wound and dressing clean. Unless you were told otherwise, you may shower daily, blotting the wound dry with a clean, unused towel. At other times, If the dressing gets wet or blood soaked, remove it and blot the wound dry, then reapply a new dressing. Unless you were instructed otherwise, dressings should be changed at least daily. If any signs of infection occur (swelling, redness, drainage, increasing tenderness, red streaks, tender lumps in the armpit or groin above the laceration, or fever), see the doctor immediately. SOAP CLEANSING: Gently wash the wound daily using a mild soap (like Ivory, Phisoderm, Neutrogena). Use warm water, rubbing gently until all debris, ooze, and crusting have been washed from the wound. Allow to dry briefly (about 10 minutes) after cleaning. Repeat this cleansing at least three times a day for the first two days and then once or twice a day. ANTIBIOTIC OINTMENT PROTECTION: Your wounds are such that dressing them is not practical or optional. After cleansing, you should apply a thin coating of antibiotic ointment ( Bacitracin, not Neosporin) to the wounds at least three times daily. This lessens infection risk, and may decrease the amount of scarring. Use a q-tip or dull butter knife, not your finger, to apply this ointment. Any debris or ooze which builds up in the ointment should be gently rubbed off with a sterile gauze pad. Harder crusting may need to be gently scrubbed off with a clean wash cloth with soap and warm water, perhaps applying a warm, wet wash cloth to the wound for ten minutes first. Development of redness, severe itching, or blistering may mean allergy to the ointment. See the doctor. TETANUS IMMUNIZATION GIVEN: You have been given an immunization against tetanus. Please record this in your records. In general, a booster is needed only once every 10 years. The tetanus shot protects against tetanus or "lockjaw," which is a complication of certain wound infections (the tetanus shot cannot protect against the actual infection). The immunization site may become warm and red due to local reaction. If this occurs, apply warm compresses and take aspirin or ibuprofen to reduce inflammation and discomfort. Return for evaluation if the reaction becomes severe. PROPHYLACTIC ANTIBIOTIC: The antibiotics which have been prescribed are designed to decrease the risk of infection. Only certain types of wounds benefit from this -- the typical cut, scrape, or burn DOES NOT require antibiotics. Of course, infection can still occur despite the use of prophylactic antibiotics. Your wound will heal with less chance of an infectious complication if you take the medication as directed. The most important dose is the FIRST dose, so don't delay filling the prescription! FOLLOW-UP CARE: Please return in 6-7 days for an infection check and dressing change. If the site overlaying your ankle starts to show signs of infection, you may need a referral for a wound vac Your sutures should be removed in 10-14 days. To facilitate a timely removal of your sutures, you may return to the Emergency Department at [facility]. You do not need to call for an appointment, but the best time to come in for suture removal is early in the morning. If you have been referred to another physician for follow-up care, call that physicians office for an appointment as you were instructed. If you experience a significant change in your laceration, or if you are concerned there may be an infection (swelling, redness, drainage, increasing tenderness, red streaks, tender lumps in the armpit or groin above the laceration, or fever) , return to the Emergency Department immediately re-evaluation. Prescriptions: Oxycodone HCl/Acetaminophen [Oxycodone-Acetaminophen 5-325] 1 each PO Q4HP PRN # 15 tablet PRN Reason: Cephalexin Monohydrate [Keflex 500 mg Capsule] 500 mg PO QID 10 Days #20 capsule Sulfamethoxazole/Trimethoprim [Bactrim Ds Tablet] 2 each PO BID 10 Days tablet Referrals: CRUZ HUERTA MD [ACTIVE STAFF] - Follow up in 3-5 days
--- NOTE | 2017-04-07 12:22 | RADIOLOGY REPORT (SQ) ---
EXAM DESCRIPTION: TIB FIB BILAT 2 VIEWS COMPLETED DATE/TIME: 04/07/2017 11:54 am REASON FOR STUDY: bilateral pain with lac on right leg s/p fall COMPARISON: Bilateral tibia and fibula films 01/19/2017 Right knee films 04/01/2017 NUMBER OF VIEWS: Two views. TECHNIQUE: Two radiographic images acquired of the right and left tibia and fibula to include the kn ee and ankle in at least one projection. LIMITATIONS: Morbidly obese patient. Limited bony detail of the right and left knee joint, portable films FINDINGS: MINERALIZATION: Normal. BONES: No acute fracture or dislocation. No worrisome bone lesions. SOFT TISSUES: There are lacerations diffusely along the anterior and lateral aspect of the right lowe r leg. No gross radiopaque foreign body. Lacerations in the superficial aspect left pretibial regio n lower 3rd, no gross radiopaque foreign body. OTHER: Advanced osteoarthritis at both knees. Moderate osteoarthritis both ankles IMPRESSION: Soft tissue injury of the right and left lower legs. No gross retained radiopaque forei gn bodies TECHNICAL DOCUMENTATION: JOB ID: [id number] All Rights Reserved
[2017-04-07] MEDS ORDERED: TRAMADOL HCL 50 MG TABLET PO ONE (12:38)
[2017-04-07] MEDS ORDERED: HYDROMORPHONE HCL INJ/PF 2 MG/ML AMPULE IM ONE (13:22)
[2017-04-07] MEDS ORDERED: LIDOCAINE 1%/EPINEPHRINE INJ 20 ML VIAL INJ ONE (13:24)
[2017-04-07] MEDS ORDERED: LIDOCAINE 1% INJ-PF (10 MG/ML) 30 ML SDV INJ ONE (13:35)
[2017-04-07] MEDS ORDERED: CEFTRIAXONE INJ 1000 MG VIAL IM ONE (13:35)
[2017-04-07] MEDS ORDERED: DIPH/PERTUSS(ACELL)/TETANUS VAC/PF 0.5 ML SYR (>=10YO) IM ONE (13:35)
[2017-04-07] MEDS ORDERED: LIDOCAINE 1% INJ-PF (10 MG/ML) 30 ML SDV ONE (13:59)
[2017-04-07] MEDS ORDERED: LIDOCAINE 0.5%/EPINEPHRINE INJ 50 ML VIAL INJ ONE (14:00)
[2017-04-07] MEDS ORDERED: LIDOCAINE 1.5%/EPINEPHRINE INJ-PF 30 ML SDV INJ ONE (14:04)
[2017-04-07] MEDS ORDERED: HYDROMORPHONE HCL INJ/PF 2 MG/ML AMPULE IV ONE ×2 (16:10→16:45)
[2017-04-07] MEDS ORDERED: SULFAMETHOXAZOLE/TRIMETHOPRIM 800-160 MG TABLET PO ONE (16:19)
--- NOTE | 2017-04-07 16:33 | OPERATIVE REPORT E ---
Operative Report NAME: SERINA LEE : 1945 AGE: 71Y DATE OF SURGERY: 04/07/2017 ROOM: PREOPERATIVE DIAGNOSIS: Deep laceration with skin avulsion on the right lower leg. POSTOPERATIVE DIAGNOSIS: Deep laceration with skin avulsion on the right lower leg. OPERATION: Partial repair of avulsed skin on the right lower leg measuring about 5 cm horizontal by a defect of about 2 cm exposing the fascia underneath. Most of the laceration has been closed nicely by CHINO Chapa, in the emergency room. I was called in to look at possibly closing the avulsed area. SURGEON: SHANNA BRUNO M.D. DESCRIPTION OF PROCEDURE: The patient's right lower leg was initially anesthetized by ER CHINO Aquino. It was subsequently prepped and draped in the usual sterile fashion. With the use of 4-0 Prolene, the avulsed area was partially re-approximated with a U-stitch on each side closing the gap to about 1 cm, closing primarily over the fascia and just exposing most of the subcutaneous fat. About 5 to 6 sutures were used to partially close this defect which is measuring about 5 cm x 2 cm. The patient tolerated the procedure well. The patient will likely need further local wound care. This can be re-evaluated in about a week by a primary physician. If need be, a wound VAC may be appropriate to heal it faster. The patient sustained a laceration from a fall in the custodial. The patient tolerated the procedure well. DICTATING PHYSICIAN: SHANNA BRUNO M.D. [id number] PHY#: [id number] ID: [id number] JOB#: [id number] ACCT: [id number] cc:SHANNA BRUNO M.D. >
[2017-04-08] MEDS ORDERED: MORPHINE SULFATE 10 MG/ML INJ IM ONE (09:12)
[2017-04-08 12:00] VITALS: BP 140/66
== END 2017-04-08 12:13 | disposition home health service (06) ==
LOC: ER 10:44
DX: S81.811A Laceration without foreign body, right lower leg, initial encounter (principal); W19.XXXA Unspecified fall, initial encounter; Y92.129 Unspecified place in nursing home as the place of occurrence of the external cause; E11.51 Type 2 diabetes mellitus with diabetic peripheral angiopathy without gangrene; I89.0 Lymphedema, not elsewhere classified; I10 Essential (primary) hypertension; Z23 Encounter for immunization; Z86.14 Personal history of Methicillin resistant Staphylococcus aureus infection; Z91.048 Other nonmedicinal substance allergy status
CPT/HCPCS: 99284; 96372; 90471; 96374; 73590; 90715; 94660 ×2; 12005; J3490 ×3; J2270; J1170; J0696; A9270 ×2

== ENCOUNTER 2017-04-19 14:26 | Inpatient (IN) | payer MEDICARE, OTHER ==
--- NOTE | 2017-04-19 15:45 | ER Document Report ---
HPI - HPI Pain Level: Denies - REPRODUCTIVE Reproductive: DENIES: : Past Medical History - Social History Family History: CAD, Malignancy - Past Medical History Cardiac Medical History: Reports: Hx Hypercholesterolemia, Hx Hypertension, Hx Peripheral Vascular Disease Denies: Hx Congestive Heart Failure, Hx DVT, Hx Heart Attack, Hx Pulmonary Embolism Pulmonary Medical History: Reports: Hx Sleep Apnea Denies: Hx Asthma, Hx COPD Neurological Medical History: Denies: Hx Seizures Endocrine Medical History: Reports: Hx Diabetes Mellitus Type 2. Denies: Hx Diabetes Mellitus Type 1, Hx Hyperthyroidism, Hx Hypothyroidism Renal/ Medical History: Denies: Hx Peritoneal Dialysis GI Medical History: Reports: Hx Gastroesophageal Reflux Disease - Distant history of same; no recent symptoms.. Denies: Hx Cirrhosis, Hx Hepatitis Musculoskeltal Medical History: Reports Hx Arthritis Skin Medical History: Reports Hx Cellulitis, Reports Hx MRSA Psychiatric Medical History: Reports: Hx Depression - Denies suicidal or homicidal ideation. Infectious Medical History: Reports: Hx MRSA - Diagnosed August 2016.. Denies: Hx C-Diff, Hx Hepatitis Past Surgical History: Reports: Hx Orthopedic Surgery, Other - Wound debridement - Immunizations Immunizations up to date: No Hx Diphtheria, Pertussis, Tetanus Vaccination: Yes Vertical Provider Document - INFECTION CONTROL TRAVEL OUTSIDE OF THE [place] IN LAST 30 DAYS: No - RESPIRATORY O2 Sat by Pulse Oximetry: 93 Course - Re-evaluation Re-evalutation: 04/19/17 17:28 CBC is showing anemia of 8.9 which she did not have in January. She also has a potassium of 6.1. I ordered an EKG and bicarb 50 mEq 1 IV insulin 10 units 1 IV and D50 25 g times 1 repeat in 30 minutes with the consultation of Dr. Yanes. I have called Dr. Rangel to get the patient admitted for hyperkalemia, cellulitis right lower leg, renal insufficiency. Pt lives at [facility] at this time. 04/19/17 18:04 [employer] called me back and is not Rj that is on-call is Dr. Marshall so they are calling him. 04/19/17 18:13 dr. marshall will admit the pt to [facility] for dr. rangel. pt will be in room 12. - Vital Signs Vital signs: Temp Pulse Resp BP Pulse Ox 99.0 F 80 24 H 133/61 H 93 01/02/18 14:59 04/19/17 14:59 04/19/17 14:59 04/19/17 14:59 04/19/17 14:59 - Laboratory Result Diagrams: 04/19/17 16:24 04/19/17 16:24 Discharge - Discharge Clinical Impression: Cellulitis of right lower leg, Hyperkalemia, Renal insufficiency, Morbid obesity, Hypoxia, Morbid obesity with BMI of 60.0-69.9, adult, CKD (chronic kidney disease), stage III Anemia Qualifiers: Anemia type: other cause Other causes of anemia: other cause, not classified Qualified Code(s): D64.89 - Other specified anemias Condition: Fair Disposition: ADMITTED INPATIENT Admitting Provider: Rj Unit Admitted: IMCU Referrals: JULIO AVALOS MD [Primary Care Provider] - Follow up as needed
[2017-04-19] MEDS ORDERED: CEPHALEXIN 500 MG CAPSULE PO ONE (15:52)
[2017-04-19] MEDS ORDERED: SULFAMETHOXAZOLE/TRIMETHOPRIM 800-160 MG TABLET PO ONE (16:03)
[2017-04-19 16:40] LABS: ABSOLUTE BASOPHILS # (AUTO) 0.1 10^3/uL (0.0-0.2); ABSOLUTE EOSINOPHILS # (AUTO) 0.1 10^3/uL (0.0-0.6); ABSOLUTE LYMPHOCYTES (AUTO) 2.2 10^3/uL (0.5-4.7); ABSOLUTE MONOCYTES (AUTO) 0.5 10^3/uL (0.1-1.4); ABSOLUTE NEUT (AUTO) 7.7 10^3/uL (1.7-8.2); BASOPHILS % (AUTO) 0.8 % (0-2); EOSINOPHILS % (AUTO) 0.7 % (0-6); HEMATOCRIT 28.3 % (36.0-47.0); HEMOGLOBIN 8.9 g/dL (12.0-15.5); LYMPHOCYTES % (AUTO) 20.8 % (13-45); MEAN CORPUSCULAR HEMOGLOBIN 25.7 pg (27.0-33.4); MEAN CORPUSCULAR HGB CONC 31.6 g/dL (32.0-36.0); MEAN CORPUSCULAR VOLUME 82 fl (80-97); MONOCYTES % (AUTO) 4.7 % (3-13); PLATELET COUNT 333 10^3/uL (150-450); RED BLOOD COUNT 3.47 10^6/uL (3.72-5.28); RED CELL DISTRIBUTION WIDTH 16.5 % (11.5-14.0); TOTAL CELLS COUNTED % (AUTO) 100 %; WHITE BLOOD COUNT 10.6 10^3/uL (4.0-10.5)
[2017-04-19 17:03] LABS: ALANINE AMINOTRANSFERASE 39 U/L (9-52); ALKALINE PHOSPHATASE 99 U/L (38-126); ANION GAP 9 (5-19); ASPARTATE AMINO TRANSFERASE 28 U/L (14-36); BILIRUBIN,DIRECT 0.3 mg/dL (0.0-0.4); BILIRUBIN,TOTAL 0.3 mg/dL (0.2-1.3); BLOOD UREA NITROGEN 32 mg/dL (7-20); CALCIUM 8.8 mg/dL (8.4-10.2); CARBON DIOXIDE 32 mmol/L (22-30); CHLORIDE 96 mmol/L (98-107); GLUCOSE 112 mg/dL (75-110); SODIUM 137.3 mmol/L (137-145); TOTAL PROTEIN 7.7 g/dL (6.3-8.2)
[2017-04-19 17:11] LABS: POTASSIUM 6.1 mmol/L (3.6-5.0)
[2017-04-19] MEDS ORDERED: ALBUTEROL SULFATE 0.083% NEB 2.5 MG/3 ML AMPUL NEB ONE (17:25)
[2017-04-19] MEDS ORDERED: SODIUM BICARBONATE 8.4% INJ 50 MEQ/50 ML DISP.SYRIN IV ONE (17:26)
[2017-04-19] MEDS ORDERED: INSULIN REG, HUMAN 100 UNIT/ML 3 ML VIAL (PYX) IV ONE ×2 (17:26→20:56)
[2017-04-19] MEDS ORDERED: DEXTROSE 50%-WATER 25 GM/50 ML DISP.SYRIN IV ONE ×2 (17:27→21:08)
[2017-04-19] MEDS ORDERED: VANCOMYCIN HCL INJ 1000 MG VIAL IV ONE (18:15)
--- NOTE | 2017-04-19 18:23 | ER Document Report ---
ED Suture/Wound Recheck - General Chief Complaint: Suture Removal Stated Complaint: SUTURE REMOVAL Time Seen by Provider: 04/19/17 15:44 Mode of Arrival: Medic - wheelchair transport from [facility] Information source: Patient Notes: 71-year-old female transported to [facility] for suture removal of her right lower leg. Sutures were placed for an extension lower leg tibial skin injury after falling out of bed and hitting her wheelchair. Temperature 99.2 no fever or chills. TRAVEL OUTSIDE OF THE [place] IN LAST 30 DAYS: No - Related Data Allergies/Adverse Reactions: adhesive [Adhesive] Allergy (Verified 01/19/17 13:11) No Known Drug Allergies Allergy (Verified 01/19/17 13:11) Past Medical History - General Information source: Patient - Social History Smoking Status: Unknown if Ever Smoked Frequency of alcohol use: None Drug Abuse: None Lives with: Group Home - [place] Family History: CAD, Malignancy Patient has suicidal ideation: No Patient has homicidal ideation: No - Medical History Notes: morbid obesity - Past Medical History Cardiac Medical History: Reports: Hx Hypercholesterolemia, Hx Hypertension, Hx Peripheral Vascular Disease Pulmonary Medical History: Reports: Hx Sleep Apnea Endocrine Medical History: Reports: Hx Diabetes Mellitus Type 2 Renal/ Medical History: Denies: Hx Peritoneal Dialysis GI Medical History: Reports: Hx Gastroesophageal Reflux Disease - Distant history of same; no recent symptoms. Musculoskeltal Medical History: Reports Hx Arthritis Skin Medical History: Reports Hx Cellulitis, Reports Hx MRSA Psychiatric Medical History: Reports: Hx Depression - Denies suicidal or homicidal ideation. Infectious Medical History: Reports: Hx MRSA - Diagnosed August 2016. Past Surgical History: Reports: Hx Orthopedic Surgery, Other - Wound debridement - Immunizations Immunizations up to date: No Hx Diphtheria, Pertussis, Tetanus Vaccination: Yes Review of Systems - Review of Systems Constitutional: See HPI EENT: No symptoms reported Cardiovascular: No symptoms reported Respiratory: No symptoms reported Gastrointestinal: No symptoms reported Genitourinary: No symptoms reported Female Genitourinary: No symptoms reported Musculoskeletal: No symptoms reported Skin: See HPI Hematologic/Lymphatic: No symptoms reported Neurological/Psychological: No symptoms reported Physical Exam - Vital signs Vitals: Temp Pulse Resp BP Pulse Ox 99.0 F 80 24 H 133/61 H 93 04/19/17 14:59 04/19/17 14:59 04/19/17 14:59 04/19/17 14:59 04/19/17 14:59 Interpretation: Hypoxic - needing oxygen 2lpm (has been having to wear it at [facility]), Febrile - 99.2 - General General appearance: Appears well, Alert Notes: 190 kg - HEENT Head: Normocephalic, Atraumatic Eyes: Normal Conjunctiva: Normal Pupils: PERRL Pharynx: Normal Neck: Supple - Respiratory Respiratory status: No respiratory distress Chest status: Nontender Breath sounds: Normal Chest palpation: Normal - Cardiovascular Rhythm: Regular Heart sounds: Normal auscultation Murmur: No - Abdominal Inspection: Normal Distension: No distension Bowel sounds: Normal Tenderness: Nontender Organomegaly: No organomegaly - Back Back: Normal, Nontender - Extremities General upper extremity: Normal inspection, Nontender, Normal color, Normal ROM , Normal temperature General lower extremity: Tender, Edema, Normal color, Normal temperature - warm red surrounding the lower horozontal exudative wound that has simple interrupted sutures, the other sutures are running stitch and too much edema to remove them, Other - non ambulatory, wheelchair bound. No: Fanta's sign - Neurological Neuro grossly intact: Yes Cognition: Normal Orientation: AAOx4 [place] Coma Scale Eye Opening: Spontaneous Ede Coma Scale Verbal: Oriented Ede Coma Scale Motor: Obeys Commands [place] Coma Scale Total: 15 Speech: Normal Motor strength normal: LUE, RUE, LLE, RLE Sensory: Normal - Psychological Associated symptoms: Normal affect, Normal mood - Skin Skin Temperature: Warm Skin Moisture: Dry Skin Color: Normal Course - Re-evaluation Re-evalutation: 04/19/17 17:28 CBC is showing anemia of 8.9 which she did not have in January. She also has a potassium of 6.1. I ordered an EKG and bicarb 50 mEq 1 IV insulin 10 units 1 IV and D50 25 g times 1 repeat in 30 minutes with the consultation of Dr. Gomez. I have called Dr. Rangel to get the patient admitted for hyperkalemia, cellulitis right lower leg, renal insufficiency. Pt lives at [facility] at this time. The simple interrupted sutures were removed, running sutures left in place per dr. gomez 04/19/17 18:04 [employer] called me back and is not Rj that is on-call is Dr. Marshall so they are calling him. 04/19/17 18:13 dr. marshall will admit the pt to [facility] for dr. rangel. pt will be in room 12. 04/19/17 18:25 - Vital Signs Vital signs: Temp Pulse Resp BP Pulse Ox 99.0 F 80 24 H 133/61 H 93 04/19/17 14:59 04/19/17 14:59 04/19/17 14:59 04/19/17 14:59 04/19/17 14:59 - Laboratory Result Diagrams: 04/19/17 16:24 04/19/17 16:24 Laboratory results interpreted by me: 04/19/17 04/19/17 16:24 16:24 WBC 10.6 H RBC 3.47 L Hgb 8.9 L Hct 28.3 L MCH 25.7 L MCHC 31.6 L RDW 16.5 H Potassium 6.1 H* Chloride 96 L Carbon Dioxide 32 H BUN 32 H Creatinine 1.47 H Est GFR ( Amer) 42 L Est GFR (Non-Af Amer) 35 L Glucose 112 H Discharge - Discharge Clinical Impression: Cellulitis of right lower leg, Hyperkalemia, Renal insufficiency, Morbid obesity, Hypoxia, Morbid obesity with BMI of 60.0-69.9, adult, CKD (chronic kidney disease), stage III Anemia Qualifiers: Anemia type: other cause Other causes of anemia: other cause, not classified Qualified Code(s): D64.89 - Other specified anemias Condition: Fair Disposition: ADMITTED INPATIENT Admitting Provider: Rj Referrals: JULIO AVALOS MD [Primary Care Provider] - Follow up as needed
[2017-04-19] MEDS ORDERED: CALCIUM GLUCONATE 1000 MG/10 ML INJ IV ONE (20:55)
[2017-04-19 23:13] LABS: ANION GAP 11 (5-19); BLOOD UREA NITROGEN 33 mg/dL (7-20); CALCIUM 8.8 mg/dL (8.4-10.2); CARBON DIOXIDE 31 mmol/L (22-30); CHLORIDE 95 mmol/L (98-107); GLUCOSE 81 mg/dL (75-110); SODIUM 136.9 mmol/L (137-145)
[2017-04-19] MEDS ORDERED: INFLUENZA ADLT QUAD (36MOS+) 2017-18 VAC 0.5 ML SYR IM PRN (23:15)
[2017-04-19 23:20] LABS: POTASSIUM 5.1 mmol/L (3.6-5.0)
[2017-04-20] MEDS ORDERED: ACETAMINOPHEN 325 MG TABLET PO PRN (00:41)
[2017-04-20] MEDS ORDERED: NORMAL SALINE 1000 ML 1,000 ML IV PRN (00:43)
[2017-04-20] MEDS ORDERED: DEXTROSE 40% GEL 15 GM TUBE PO PRN (00:44)
[2017-04-20] MEDS ORDERED: DEXTROSE 50%-WATER SYRINGE 12.5 GM/25 ML DOSE IV PRN (00:44)
[2017-04-20] MEDS ORDERED: INSULIN LISPRO 100 UNIT/ML 3 ML VIAL SUBCUT PRN (00:44)
[2017-04-20] MEDS ORDERED: DEXTROSE 50%-WATER SYRINGE 25 GM/50 ML DOSE IV PRN (00:44)
[2017-04-20] MEDS ORDERED: DEXTROSE 40% GEL 15 GM TUBE X 2 PO PRN (00:44)
[2017-04-20] MEDS ORDERED: GLUCAGON,HUMAN RECOMB 1 MG INJ IM PRN (00:44)
[2017-04-20] MEDS: OXYCODONE-ACETAMINOPHEN 5-325 MG TABLET PO PRN ×4 (01:17→22:50)
[2017-04-20] MEDS: CLINDAMYCIN 600 MG/D5W RTU 600 MG/50 ML RTUPB IV SCH ×3 (06:02→17:40)
[2017-04-20] MEDS: LANSOPRAZOLE 30 MG TAB.RAP.DR PO SCH (06:02)
[2017-04-20] MEDS: CEFTRIAXONE 1 GM/D5W RTU 1 GM/50 ML RTUPB IV SCH (09:11)
[2017-04-20] MEDS: ENOXAPARIN SODIUM INJ 40 MG/0.4 ML DISP.SYRIN SUBCUT SCH (09:11)
[2017-04-20] MEDS ORDERED: IPRATROPIUM/ALBUTEROL 0.5-2.5 MG/3 ML AMPUL NEB PRN (09:48)
--- NOTE | 2017-04-20 10:32 | EKG REPORT ---
SEVERITY:- ABNORMAL ECG - SINUS RHYTHM LOW VOLTAGE THROUGHOUT BORDERLINE R WAVE PROGRESSION, ANTERIOR LEADS BORDERLINE T ABNORMALITIES, ANT-LAT LEADS : Confirmed by: Grazyna Herrera 20-Apr-2017 10:31:36
--- NOTE | 2017-04-20 15:02 | RADIOLOGY REPORT (SQ) ---
EXAM DESCRIPTION: CHEST PA/LAT COMPLETED DATE/TIME: 04/20/2017 2:53 pm REASON FOR STUDY: chf COMPARISON: Chest film 01/24/2017, 09/22/2016 EXAM PARAMETERS: NUMBER OF VIEWS: two views TECHNIQUE: Digital Frontal and Lateral radiographic views of the chest acquired. RADIATION DOSE: NA LIMITATIONS: Artifact from clothing and EKG leads over the patient FINDINGS: LUNGS AND PLEURA: Patchy airspace disease right base just above the hemidiaphragm. This m ost likely represents atelectasis. Pneumonia could not entirely be excluded. Left lung clear. Trace right lateral costophrenic sulcus fluid. No left effusion. No right or left pneumothorax MEDIASTINUM AND HILAR STRUCTURES: No masses or contour abnormalities. HEART AND VASCULAR STRUCTURES: Stable cardiomegaly BONES: No acute findings. HARDWARE: None in the chest. OTHER: No other significant finding. IMPRESSION: Minimal right basilar airspace disease atelectasis versus pneumonia. Question trace right pleural effusion TECHNICAL DOCUMENTATION: JOB ID: [id number] [employer]- All Rights Reserved
[2017-04-20 16:14] LABS: ABSOLUTE BASOPHILS # (AUTO) 0.1 10^3/uL (0.0-0.2); ABSOLUTE EOSINOPHILS # (AUTO) 0.3 10^3/uL (0.0-0.6); ABSOLUTE LYMPHOCYTES (AUTO) 2.1 10^3/uL (0.5-4.7); ABSOLUTE MONOCYTES (AUTO) 0.5 10^3/uL (0.1-1.4); ABSOLUTE NEUT (AUTO) 5.5 10^3/uL (1.7-8.2); BASOPHILS % (AUTO) 0.8 % (0-2); EOSINOPHILS % (AUTO) 3.1 % (0-6); HEMATOCRIT 26.1 % (36.0-47.0); HEMOGLOBIN 8.3 g/dL (12.0-15.5); LYMPHOCYTES % (AUTO) 25.3 % (13-45); MEAN CORPUSCULAR HEMOGLOBIN 25.6 pg (27.0-33.4); MEAN CORPUSCULAR HGB CONC 31.6 g/dL (32.0-36.0); MEAN CORPUSCULAR VOLUME 81 fl (80-97); MONOCYTES % (AUTO) 5.7 % (3-13); PLATELET COUNT 288 10^3/uL (150-450); RED BLOOD COUNT 3.22 10^6/uL (3.72-5.28); RED CELL DISTRIBUTION WIDTH 16.5 % (11.5-14.0); SEGMENTED NEUTROPHILS % (AUTO) 65.1 % (42-78); TOTAL CELLS COUNTED % (AUTO) 100 %; WHITE BLOOD COUNT 8.5 10^3/uL (4.0-10.5)
--- NOTE | 2017-04-20 16:19 | XCELERA REPORT ---
[address] [address] Transthoracic Echocardiogram Report Name: SERINA LEE Age: 71 yrs Gender: Female : 1945 Patient Status: Inpatient Patient Location: [address] [place], [place] [address] Study Date: 04/20/2017 03:14 PM Height: 65 in Weight: 421 lb BSA: 2.7 m2 Procedure: A complete two-dimensional transthoracic echocardiogram was performed (2D, M-mode, spectral and color flow Doppler). The study was technically difficult with many images being suboptimal in quality. Reason For Study: chf Ordering Physician: CRUZ HUERTA Performed By: Ankita Ball Interpretation Summary The study was technically difficult with many images being suboptimal in quality. The left ventricular ejection fraction is normal. Doppler measurements suggest pseudonormalized left ventricular relaxation, which is associated with grade II/IV or mild to moderate diastolic dysfunction There is mild to moderate concentric left ventricular hypertrophy. The left ventricle is grossly normal size. Wall motion cannot be accurately commented on, but no definite regional wall motion abnormalities noted. The right ventricle appears to be hypertrophied The right ventricle is moderately dilated. The left atrium is mildly dilated. The right atrium is moderately dilated. There is a mild amount of mitral regurgitation There is no mitral valve stenosis. No aortic regurgitation is present. There is no aortic valve stenosis There is a mild amount of tricuspid regurgitation There is servere pulmonary hypertension by echo Right ventricular systolic pressure is estimated to be elevated at >60mmHg .60-70 mmHg) The aortic root is not well visualized. The inferior vena cava appeared normal and decreased < 50% with respiration (RAP 10-15 mmHg) There is no pericardial effusion. MMode/2D Measurements & Calculations RVDd: 2.8 cm LVIDd: 5.3 cm FS: 37.8 % Ao root diam: 2.5 cm IVSd: 1.3 cm LVIDs: 3.3 cm EDV(Teich): 134.2 ml LVPWd: 1.3 cm ESV(Teich): 43.6 ml Ao root area: 5.0 cm2 EF(Teich): 67.5 % LA dimension: 3.7 cm Doppler Measurements & Calculations MV E max yogi: MV P1/2t max yogi: Ao V2 max: LV V1 max P.7 cm/sec 100.2 cm/sec 152.0 cm/sec 7.6 mmHg MV A max yogi: MV P1/2t: 68.7 msec Ao max PG: LV V1 max: 108.6 cm/sec 9.2 mmHg 138.2 cm/sec MV E/A: 0.92 MVA(P1/2t): 3.2 cm2 MV dec slope: 426.9 cm/sec2 MV dec time: 0.24 sec PA V2 max: TR max yogi: 95.3 cm/sec 387.3 cm/sec PA max PG: TR max P.0 mmHg 3.6 mmHg Left Ventricle The left ventricle is grossly normal size. There is mild to moderate concentric left ventricular hypertrophy. The left ventricular ejection fraction is normal. Doppler measurements suggest pseudonormalized left ventricular relaxation, which is associated with grade II/IV or mild to moderate diastolic dysfunction. Wall motion cannot be accurately commented on, but no definite regional wall motion abnormalities noted. Right Ventricle The right ventricle is moderately dilated. The right ventricle appears to be hypertrophied. The right ventricular systolic function is normal. Atria The right atrium is moderately dilated. The left atrium is mildly dilated. Interarterial septum not well visualized and not well dopplered. Cannot comment on ASD/PFO presence. Mitral Valve The mitral valve is grossly normal. There is no mitral valve stenosis. There is a mild amount of mitral regurgitation. Aortic Valve The aortic valve is not well visualized secondary to technical limitations. There is no aortic valve stenosis. No aortic regurgitation is present. Tricuspid Valve The tricuspid valve is not well visualized secondary to technical limitations. There is no tricuspid stenosis. There is a mild amount of tricuspid regurgitation. There is servere pulmonary hypertension by echo. Right ventricular systolic pressure is estimated to be elevated at >60mmHg. Pulmonic Valve The pulmonic valve is not well visualized. Great Vessels The aortic root is not well visualized. The inferior vena cava appeared normal and decreased < 50% with respiration (RAP 10-15 mmHg). Effusions There is no pericardial effusion. : CRUZ HUERTA > Grazyna Herrera
[2017-04-20 16:34] LABS: ALANINE AMINOTRANSFERASE 32 U/L (9-52); ALBUMIN 3.6 g/dL (3.5-5.0); ALKALINE PHOSPHATASE 89 U/L (38-126); ANION GAP 7 (5-19); ASPARTATE AMINO TRANSFERASE 26 U/L (14-36); BILIRUBIN,DIRECT 0.3 mg/dL (0.0-0.4); BILIRUBIN,TOTAL 0.3 mg/dL (0.2-1.3); BLOOD UREA NITROGEN 28 mg/dL (7-20); CALCIUM 8.8 mg/dL (8.4-10.2); CARBON DIOXIDE 34 mmol/L (22-30); CHLORIDE 96 mmol/L (98-107); CREATINE KINASE 73 U/L (30-135); GLUCOSE 110 mg/dL (75-110); POTASSIUM 5.5 mmol/L (3.6-5.0)
[2017-04-20 16:45] LABS: CREATINE KINASE MB 2.14 ng/mL (<4.55); NT PRO BNP 3470 pg/mL (5-900); TROPONIN I < 0.012 ng/mL
--- NOTE | 2017-04-20 16:58 | PDOC H&P ---
History of Present Illness Admission Date/PCP: 04/19/17 18:25 JULIO AVALOS MD History of Present Illness: SERINA LEE is a 71 year old female, She has a history of severe morbid obesity , the body mass index is 70, she came to the emergency room from the retirement essentially for suture removal of a right lower leg she apparently fell out of bed and sustained laceration of the right lower leg this was sutured she came to the emergency room essentially for that. In the emergency room she was found to be febrile with body temperature of 99.2. There was extensive erythema of the right leg, warm to touch she was also found to be hypoxemic, the oxygen saturation was low, in the 80s, it was felt that she needed to be admitted to the hospital because of the combination of severe cellulitis of the right lower extremities and the hypoxemia. The blood work that was done in the emergency room revealed hyperkalemia, the potassium was 6.1, serum creatinine was 1.47. She had a history of chronic kidney disease stage III. She has a history of chronic venous hypertension with chronic leg ulcer affecting the left leg, this was managed in the retirement but on inspection of the ulcer, it looks infected, with erythema the edges of the ulcer are raised, the surface of the ulcer looks sloughy suggesting tissues. She was also found to have anemia with hemoglobin of 8.9, hematocrit 28.3. When I saw patient on the floor she had audible wheeze, a 2D echocardiogram was done, it showed severe pulmonary hypertension with dilated chambers, the right ventricle, left atrium right atrium are dilated there is also concentric LVH with grade 2 diastolic dysfunction of left ventricle, code status was discussed with patient, she is a DNR status Past Medical History Cardiac Medical History: Reports: Hyperlipidema, Hypertension, Peripheral Vascular Disease Pulmonary Medical History: Reports: Sleep Apnea Endocrine Medical History: Reports: Diabetes Mellitus Type 2 Renal/ Medical History: Reports: Chronic Kidney Disease GI Medical History: Reports: Gastroesophageal Reflux Disease - Distant history of same; no recent symptoms. Musculoskeltal Medical History: Reports: Arthritis Psychiatric Medical History: Reports: Depression - Denies suicidal or homicidal ideation. 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 Past Surgical History Past Surgical History: Reports: Orthopedic Surgery, Other - Wound debridement Social History Lives with: [facility] Smoking Status: Never Smoker Frequency of Alcohol Use: None Hx Recreational Drug Use: No Drugs: None Hx Prescription Drug Abuse: No - Advance Directive Resuscitation Status: Full Code Family History Family History: CAD, Malignancy Parental Family History Reviewed: Yes Children Family History Reviewed: Yes Sibling(s) Family History Reviewed.: Yes Medication/Allergy Home Medications: Amlodipine Besylate [Norvasc 5 mg Tablet] 5 mg PO DAILY 04/19/17 Atorvastatin Calcium [Lipitor 10 mg Tablet] 10 mg PO QHS 04/19/17 Cephalexin Monohydrate [Keflex 500 mg Capsule] 500 mg PO DAILY 04/19/17 Ergocalciferol (Vitamin D2) [Vitamin D2] 50,000 unit PO SEGURA@1000 04/19/17 Gabapentin [Neurontin 400 mg Capsule] 400 mg PO Q8 04/19/17 Glipizide [Glocotrol 5 Mg Tablet] 5 mg PO DAILY 04/19/17 Insulin Regular, Human [Humulin R (Pyxis) Insulin 100 Unit/ml 3Ml] 0 unit SUBCUT .SLD SCALE 04/19/17 Multivit-Min/FA/Lycopen/Lutein [Certavite Sr-Antioxidant Tab] 1 tab PO DAILY 06/05 Nystatin [Mycostatin Topical Powder 15 gm] 1 applic TP BID 04/19/17 Oxycodone HCl/Acetaminophen [Oxycodone-Acetaminophen 5-325] 1 tab PO Q4HP PRN Sertraline HCl [Zoloft 50 mg Tablet] 100 mg PO DAILY 04/19/17 Sulfamethoxazole/Trimethoprim [Bactrim Ds Tablet] 1 tab PO BID 04/19/17 Tramadol HCl [Ultram 50 mg Tablet] 50 mg PO Q6HP PRN 04/19/17 Allergies/Adverse Reactions: adhesive [Adhesive] Allergy (Verified 01/19/17 13:11) No Known Drug Allergies Allergy (Verified 01/19/17 13:11) Review of Systems Constitutional: PRESENT: weight gain Cardiovascular: PRESENT: dyspnea on exertion, edema Respiratory: PRESENT: dyspnea Gastrointestinal: ABSENT: as per HPI, abdominal pain, bloating, coffee ground emesis, constipation, diarrhea, dysphagia, heartburn, hematemesis, hematochezia , melena, nausea, vomiting, other Genitourinary: ABSENT: as per HPI, difficulty urinating, dysuria, hematuria, nocturia, other Musculoskeletal: PRESENT: muscle weakness Neurological: PRESENT: weakness Physical Exam Vital Signs: Temp Pulse Resp BP Pulse Ox 98.4 F 71 18 136/69 H 96 04/20/17 10:58 04/20/17 13:59 04/20/17 10:58 04/20/17 10:58 04/20/17 10:58 Intake & Output 04/19/17 04/20/17 04/21/17 06:59 06:59 06:59 Intake Total 300 485 Output Total 2 900 Balance 298 -415 Weight 191.1 kg 191.1 kg General appearance: PRESENT: morbidly obese, severe distress Head exam: PRESENT: atraumatic, normocephalic Eye exam: PRESENT: conjunctiva pink, EOMI, PERRLA Ear exam: PRESENT: normal external ear exam Mouth exam: PRESENT: neck supple Neck exam: PRESENT: full ROM Respiratory exam: PRESENT: wheezes Cardiovascular exam: PRESENT: RRR, +S1, +S2 GI/Abdominal exam: PRESENT: distended, normal bowel sounds, soft, other - Abdominal wall edema with. peau d' orange appearance Rectal exam: PRESENT: deferred Extremities exam: PRESENT: pedal edema, other - large ulcer in the left leg, with raised edges ,there is erythema of the right leg with areas of sutures Neurological exam: PRESENT: alert Psychiatric exam: PRESENT: appropriate affect, normal mood Skin exam: PRESENT: dry, intact, warm. ABSENT: cyanosis, rash Results Laboratory Results: 04/20/17 15:55 04/19/17 04/19/17 04/20/17 22:03 22:50 15:55 WBC 8.5 RBC 3.22 L Hgb 8.3 L Hct 26.1 L MCV 81 MCH 25.6 L MCHC 31.6 L RDW 16.5 H Plt Count 288 Seg Neutrophils % 65.1 Lymphocytes % 25.3 Monocytes % 5.7 Eosinophils % 3.1 Basophils % 0.8 Absolute Neutrophils 5.5 Absolute Lymphocytes 2.1 Absolute Monocytes 0.5 Absolute Eosinophils 0.3 Absolute Basophils 0.1 Sodium Cancelled 136.9 L Potassium Cancelled 5.1 H D Chloride Cancelled 95 L Carbon Dioxide Cancelled 31 H Anion Gap Cancelled 11 BUN Cancelled 33 H Creatinine Cancelled 1.52 H Est GFR ( Amer) Cancelled 41 L Est GFR (Non-Af Amer) Cancelled 34 L Glucose Cancelled 81 Calcium Cancelled 8.8 Impressions: Chest X-Ray 04/20/17 00:00 IMPRESSION: Minimal right basilar airspace disease atelectasis versus pneumonia. Question trace right pleural effusion Assessment & Plan - Diagnosis (1) Acute diastolic (congestive) heart failure Is this a current diagnosis for this admission?: Yes Plan: There is clinical evidence of acute diastolic heart failure, she is wheezing, she is volume overloaded, the 2D echo showed grade 2 diastolic heart failure, she will be treated with Lasix drip cautiously because she has underlining chronic kidney disease (2) Chronic venous hypertension (idiopathic) with ulcer and inflammation of bilateral lower extremity Is this a current diagnosis for this admission?: Yes Plan: Unna boot is indicated for this patient (3) Pulmonary hypertension Is this a current diagnosis for this admission?: Yes (4) Cellulitis of right lower leg Is this a current diagnosis for this admission?: Yes Plan: Treat with antibiotic (5) Hyperkalemia Is this a current diagnosis for this admission?: Yes (6) Anemia Qualifiers: Anemia type: unspecified type Qualified Code(s): D64.9 - Anemia, unspecified Is this a current diagnosis for this admission?: Yes (7) Chronic kidney disease, stage 3 (moderate) Is this a current diagnosis for this admission?: Yes
[2017-04-20 18:01] LABS: IRON(TIBC) 26.6 ug/dL (37-170)
--- NOTE | 2017-04-20 18:30 | PDOC CONSULTATION ---
Consultation Consult Date: 04/20/17 Consult reason:: cellulitis of both lower legs History of Present Illness Admission Date/PCP: 04/19/17 18:25 JULIO AVALOS MD Patient complains of: pains left lower leg ulcer History of Present Illness: Fell and lacerated left lower leg about 2 weeks ago. Large laceration right lower leg that i helped the ER PA repair the complex laceration. Came in for removal of sutures but c/o severe pains left lower leg ulcer which she claims has been there for 2-4 months and being followed at the wound care center. She was then admitted for cellulitis left lower leg. Past Medical History Cardiac Medical History: Reports: Hyperlipidema, Hypertension, Peripheral Vascular Disease Denies: Congestive Heart Failure, DVT, Myocardial Infarction, Pulmonary Embolism Pulmonary Medical History: Reports: Sleep Apnea Denies: Asthma, Chronic Obstructive Pulmonary Disease (COPD) Neurological Medical History: Denies: Seizures Endocrine Medical History: Reports: Diabetes Mellitus Type 2 Denies: Diabetes Mellitus Type 1, Hyperthyroidism, Hypothyroidism Renal/ Medical History: Reports: Chronic Kidney Disease GI Medical History: Reports: Gastroesophageal Reflux Disease - Distant history of same; no recent symptoms. Denies: Cirrhosis, Hepatitis Musculoskeltal Medical History: Reports: Arthritis Psychiatric Medical History: Reports: Depression - Denies suicidal or homicidal ideation. 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 Denies: Clostridium Difficile Past Surgical History Past Surgical History: Reports: Orthopedic Surgery, Other - Wound debridement Social History Lives with: [facility] Smoking Status: Never Smoker Frequency of Alcohol Use: None Hx Recreational Drug Use: No Drugs: None Hx Prescription Drug Abuse: No - Advance Directive Resuscitation Status: Full Code Family History Family History: CAD, Malignancy Parental Family History Reviewed: Yes Children Family History Reviewed: No Sibling(s) Family History Reviewed.: No Medication/Allergy Home Medications: Amlodipine Besylate [Norvasc 5 mg Tablet] 5 mg PO DAILY 04/19/17 Atorvastatin Calcium [Lipitor 10 mg Tablet] 10 mg PO QHS 04/19/17 Cephalexin Monohydrate [Keflex 500 mg Capsule] 500 mg PO DAILY 04/19/17 Ergocalciferol (Vitamin D2) [Vitamin D2] 50,000 unit PO SEGURA@1000 04/19/17 Gabapentin [Neurontin 400 mg Capsule] 400 mg PO Q8 04/19/17 Glipizide [Glocotrol 5 Mg Tablet] 5 mg PO DAILY 04/19/17 Insulin Regular, Human [Humulin R (Pyxis) Insulin 100 Unit/ml 3Ml] 0 unit SUBCUT .SLD SCALE 04/19/17 Multivit-Min/FA/Lycopen/Lutein [Certavite Sr-Antioxidant Tab] 1 tab PO DAILY 06/05 Nystatin [Mycostatin Topical Powder 15 gm] 1 applic TP BID 04/19/17 Oxycodone HCl/Acetaminophen [Oxycodone-Acetaminophen 5-325] 1 tab PO Q4HP PRN Sertraline HCl [Zoloft 50 mg Tablet] 100 mg PO DAILY 04/19/17 Sulfamethoxazole/Trimethoprim [Bactrim Ds Tablet] 1 tab PO BID 04/19/17 Tramadol HCl [Ultram 50 mg Tablet] 50 mg PO Q6HP PRN 04/19/17 Allergies/Adverse Reactions: adhesive [Adhesive] Allergy (Verified 01/19/17 13:11) No Known Drug Allergies Allergy (Verified 01/19/17 13:11) Review of Systems Constitutional: PRESENT: other - no fever/chills Eyes: PRESENT: other - no visual/hearing problems Nose, Mouth, and Throat: PRESENT: other - no sore throat Cardiovascular: PRESENT: other - no chest pains Respiratory: PRESENT: other - SOB on lying flat Gastrointestinal: PRESENT: other - no abd pains N/V Genitourinary: PRESENT: other - no dysuria Musculoskeletal: PRESENT: muscle weakness Integumentary: PRESENT: wounds - both lower legs Neurological: PRESENT: weakness Psychiatric: PRESENT: anxiety Endocrine: PRESENT: other - no polyuria Hematologic/Lymphatic: PRESENT: other - no easy bruisability Physical Exam Vital Signs: Temp Pulse Resp BP Pulse Ox 98.2 F 80 20 129/54 H 92 04/20/17 16:52 04/20/17 16:52 04/20/17 16:52 04/20/17 16:52 04/20/17 16:52 Intake & Output 04/19/17 04/20/17 04/21/17 06:59 06:59 06:59 Intake Total 300 1159 Output Total 2 900 Balance 298 259 Weight 191.1 kg 191.1 kg General appearance: PRESENT: mild distress, morbidly obese Head exam: PRESENT: atraumatic Eye exam: PRESENT: conjunctiva pink Mouth exam: PRESENT: moist, tongue midline Neck exam: PRESENT: other - thick,short neck,no apparent tracheal deviation Respiratory exam: PRESENT: clear to auscultation kurt Cardiovascular exam: PRESENT: RRR Pulses: PRESENT: normal radial pulses Vascular exam: PRESENT: normal capillary refill GI/Abdominal exam: PRESENT: soft - nontender Rectal exam: PRESENT: deferred Extremities exam: PRESENT: +2 edema Musculoskeletal exam: PRESENT: tenderness - both lower leg wounds worsde on left leg but more erythema on the right lower leg. Both feet warm. unable to palpate kurt DPA Neurological exam: PRESENT: altered, oriented to person, oriented to place, oriented to time, oriented to situation Psychiatric exam: PRESENT: anxious Focused psych exam: PRESENT: restlessness Skin exam: PRESENT: erythema - Large almost full skin ulceration left lateral ankle about 12x18 cm markedly tender. No definite area to debride at this time. , warm Results Laboratory Results: 04/20/17 15:55 04/20/17 15:55 04/19/17 04/19/17 04/20/17 22:03 22:50 15:55 WBC RBC Hgb Hct MCV MCH MCHC RDW Plt Count Seg Neutrophils % Lymphocytes % Monocytes % Eosinophils % Basophils % Absolute Neutrophils Absolute Lymphocytes Absolute Monocytes Absolute Eosinophils Absolute Basophils Sodium Cancelled 136.9 L 137.0 Potassium Cancelled 5.1 H D 5.5 H Chloride Cancelled 95 L 96 L Carbon Dioxide Cancelled 31 H 34 H Anion Gap Cancelled 11 7 BUN Cancelled 33 H 28 H Creatinine Cancelled 1.52 H 1.42 H Est GFR ( Amer) Cancelled 41 L 44 L Est GFR (Non-Af Amer) Cancelled 34 L 36 L Glucose Cancelled 81 110 Calcium Cancelled 8.8 8.8 Total Bilirubin 0.3 AST 26 ALT 32 Alkaline Phosphatase 89 Total Protein 7.0 Albumin 3.6 PTH Intact 04/20/17 04/20/17 15:55 17:26 WBC 8.5 RBC 3.22 L Hgb 8.3 L Hct 26.1 L MCV 81 MCH 25.6 L MCHC 31.6 L RDW 16.5 H Plt Count 288 Seg Neutrophils % 65.1 Lymphocytes % 25.3 Monocytes % 5.7 Eosinophils % 3.1 Basophils % 0.8 Absolute Neutrophils 5.5 Absolute Lymphocytes 2.1 Absolute Monocytes 0.5 Absolute Eosinophils 0.3 Absolute Basophils 0.1 Sodium Potassium Chloride Carbon Dioxide Anion Gap BUN Creatinine Est GFR ( Amer) Est GFR (Non-Af Amer) Glucose Calcium Total Bilirubin AST ALT Alkaline Phosphatase Total Protein Albumin PTH Intact 88.4 H 04/20/17 04/20/17 15:55 15:55 Creatine Kinase 73 CK-MB (CK-2) 2.14 Troponin I < 0.012 NT-Pro-B Natriuret Pep 3470 H Impressions: Chest X-Ray 04/20/17 00:00 IMPRESSION: Minimal right basilar airspace disease atelectasis versus pneumonia. Question trace right pleural effusion Assessment & Plan - Diagnosis (1) Chronic kidney disease, stage 3 (moderate) Is this a current diagnosis for this admission?: Yes (2) Chronic venous hypertension (idiopathic) with ulcer and inflammation of bilateral lower extremity Is this a current diagnosis for this admission?: Yes (3) Hyperkalemia Is this a current diagnosis for this admission?: Yes (4) Morbid obesity Is this a current diagnosis for this admission?: Yes (5) CKD (chronic kidney disease), stage III Is this a current diagnosis for this admission?: Yes (6) Morbid obesity with BMI of 60.0-69.9, adult Is this a current diagnosis for this admission?: Yes (7) Cellulitis of left leg Is this a current diagnosis for this admission?: Yes (8) Cellulitis of right leg Is this a current diagnosis for this admission?: Yes (9) Chronic venous stasis dermatitis Is this a current diagnosis for this admission?: Yes (10) Diabetes Qualifiers: Diabetes mellitus type: type 2 Diabetes mellitus complication status: with unspecified complications Diabetes mellitus machine long goods helper insulin use: with [facility] use Qualified Code(s): E11.8 - Type 2 diabetes mellitus with unspecified complications Is this a current diagnosis for this admission?: Yes (12) Hypertension Qualifiers: Hypertension type: essential hypertension Qualified Code(s): I10 - Essential (primary) hypertension Is this a current diagnosis for this admission?: Yes - Time Time Spent: 50 to 70 Minutes Anticipated discharge: SNF Within: Other - Inpatient Certification Medical Necessity: Failure to Improve With Outpatient Therapy, Significant Comorbidiites Make Outpatient Treatment Too Risky, Need Close Monitoring Due to Risk of Patient Decompensation, Need for Pain Control, Need for IV Antibiotics, Risk of Complication if Not Cared For in Hospital, Risk of Diagnosis Which Will Require Inpatient Eval/Care/Monitoring - Plan Summary Plan Summary: Start silvadene dressings BID for both lower leg wounds Agree with IV antibiotics Need to elevate both legs but patient has SOB when just flat on bed. OK with trying diuretics
--- NOTE | 2017-04-20 19:09 | EKG REPORT ---
SEVERITY:- ABNORMAL ECG - SINUS RHYTHM PROBABLE INFERIOR INFARCT, AGE INDETERMINATE BORDERLINE R WAVE PROGRESSION, ANTERIOR LEADS : Confirmed by: Grazyna Herrera 20-Apr-2017 19:07:57
[2017-04-20] MEDS: NORMAL SALINE 250 ML with FUROSEMIDE 250 MG IV PRN ×2 (19:48)
[2017-04-20] MEDS: SILVER SULFADIAZINE 1% CREAM 400 GM TP SCH (21:36)
[2017-04-20 22:09] LABS: ABSOLUTE RETICS # 0.131 10^6/uL (0.028-0.122); RETICULOCYTE COUNT (AUTO) 4.01 % (0.66-2.85)
[2017-04-20 22:36] LABS: CREATINE KINASE MB 1.88 ng/mL (<4.55)
[2017-04-20 22:40] LABS: TROPONIN I < 0.012 ng/mL
[2017-04-21] MEDS: CLINDAMYCIN 600 MG/D5W RTU 600 MG/50 ML RTUPB IV SCH ×4 (00:09→17:59)
[2017-04-21] MEDS: OXYCODONE-ACETAMINOPHEN 5-325 MG TABLET PO PRN ×3 (02:57→21:40)
[2017-04-21] MEDS: LANSOPRAZOLE 30 MG TAB.RAP.DR PO SCH (05:14)
[2017-04-21 05:23] LABS: CREATINE KINASE MB 1.32 ng/mL (<4.55)
[2017-04-21 05:26] LABS: TROPONIN I < 0.012 ng/mL
--- NOTE | 2017-04-21 08:22 | RADIOLOGY REPORT (SQ) ---
EXAM DESCRIPTION: U/S RETROPERITON (RENAL/AORTA) COMPLETED DATE/TIME: 04/20/2017 7:27 pm REASON FOR STUDY: KIDNEY FAILURE COMPARISON: None. TECHNIQUE: Dynamic and static grayscale images acquired of the kidneys and bladder and recorded on P ACS. Additional selected color Doppler and spectral images recorded. LIMITATIONS: Large body habitus FINDINGS: Large patient, limited view Both kidneys are 10 cm in length. No hydronephrosis or hydroureter. No gross cysts or masses. Urinary bladder decompressed IMPRESSION: No hydronephrosis. Limited study TECHNICAL DOCUMENTATION: JOB ID: [id number] [employer]- All Rights Reserved
[2017-04-21] MEDS: SILVER SULFADIAZINE 1% CREAM 400 GM TP SCH ×2 (08:33→22:13)
[2017-04-21] MEDS: ENOXAPARIN SODIUM INJ 40 MG/0.4 ML DISP.SYRIN SUBCUT SCH (09:44)
[2017-04-21] MEDS: CEFTRIAXONE 1 GM/D5W RTU 1 GM/50 ML RTUPB IV SCH (10:56)
[2017-04-21] MEDS ORDERED: OXYCODONE-ACETAMINOPHEN 5-325 MG TABLET PO PRN (11:56)
[2017-04-21] MEDS ORDERED: INSULIN REG, HUMAN 100 UNIT/ML 3 ML VIAL (PYX) SUBCUT SCH (12:00)
[2017-04-21] MEDS: TRAMADOL HCL 50 MG TABLET PO PRN (12:23)
[2017-04-21 12:38] LABS: ABSOLUTE EOSINOPHILS # (AUTO) 0.3 10^3/uL (0.0-0.6); ABSOLUTE LYMPHOCYTES (AUTO) 2.4 10^3/uL (0.5-4.7); ABSOLUTE MONOCYTES (AUTO) 0.5 10^3/uL (0.1-1.4); ABSOLUTE NEUT (AUTO) 4.8 10^3/uL (1.7-8.2); BASOPHILS % (AUTO) 0.4 % (0-2); EOSINOPHILS % (AUTO) 3.2 % (0-6); HEMATOCRIT 26.8 % (36.0-47.0); HEMOGLOBIN 8.5 g/dL (12.0-15.5); LYMPHOCYTES % (AUTO) 30.5 % (13-45); MEAN CORPUSCULAR HEMOGLOBIN 25.9 pg (27.0-33.4); MEAN CORPUSCULAR HGB CONC 31.8 g/dL (32.0-36.0); MEAN CORPUSCULAR VOLUME 81 fl (80-97); MONOCYTES % (AUTO) 5.9 % (3-13); PLATELET COUNT 286 10^3/uL (150-450); RED BLOOD COUNT 3.29 10^6/uL (3.72-5.28); RED CELL DISTRIBUTION WIDTH 16.4 % (11.5-14.0); TOTAL CELLS COUNTED % (AUTO) 100 %; WHITE BLOOD COUNT 7.9 10^3/uL (4.0-10.5)
[2017-04-21 12:54] LABS: ALANINE AMINOTRANSFERASE 35 U/L (9-52); ALBUMIN 3.5 g/dL (3.5-5.0); ALKALINE PHOSPHATASE 82 U/L (38-126); ANION GAP 8 (5-19); ASPARTATE AMINO TRANSFERASE 24 U/L (14-36); BILIRUBIN,DIRECT 0.2 mg/dL (0.0-0.4); BILIRUBIN,TOTAL 0.3 mg/dL (0.2-1.3); BLOOD UREA NITROGEN 26 mg/dL (7-20); CALCIUM 8.9 mg/dL (8.4-10.2); CARBON DIOXIDE 37 mmol/L (22-30); CHLORIDE 94 mmol/L (98-107); GLUCOSE 98 mg/dL (75-110); POTASSIUM 4.7 mmol/L (3.6-5.0); SODIUM 138.6 mmol/L (137-145); TOTAL PROTEIN 7.1 g/dL (6.3-8.2)
--- NOTE | 2017-04-21 13:38 | PDOC PROGRESS REPORT ---
Subjective Progress Note for:: 04/21/17 Subjective:: Patient was seen by the bedside, she has low serum iron level, she will be given iron infusion. She is presently on furosemide infusion, she has less wheeze on chest auscultation today compared to yesterday. She was seen by the surgeon yesterday regarding the ulcer on the lower extremities silver sulfadiazine application was recommended Reason For Visit: CELLULITIS OF RIGHT LOWER LEG HYPERKALEMIA ANEMIA Physical Exam Vital Signs: Temp Pulse Resp BP Pulse Ox 97.7 F 73 20 133/59 H 97 04/21/17 11:22 04/21/17 11:22 04/21/17 11:22 04/21/17 11:22 04/21/17 11:22 Intake & Output 04/20/17 04/21/17 04/22/17 06:59 06:59 06:59 Intake Total 300 1755 Output Total 2 1450 Balance 298 305 Weight 191.1 kg 189.2 kg General appearance: PRESENT: no acute distress Head exam: PRESENT: atraumatic, normocephalic Eye exam: PRESENT: PERRLA Ear exam: PRESENT: normal external ear exam Mouth exam: PRESENT: moist, tongue midline Neck exam: PRESENT: full ROM Respiratory exam: PRESENT: clear to auscultation kurt Cardiovascular exam: PRESENT: RRR, +S1, +S2 Pulses: PRESENT: normal dorsalis pedis pul, +2 pedal pulses bilateral Vascular exam: PRESENT: normal capillary refill GI/Abdominal exam: PRESENT: normal bowel sounds, soft Rectal exam: PRESENT: deferred Neurological exam: PRESENT: alert. ABSENT: motor sensory deficit Psychiatric exam: PRESENT: appropriate affect, normal mood. ABSENT: homicidal ideation, suicidal ideation Skin exam: PRESENT: dry, intact, warm. ABSENT: cyanosis, rash Results Laboratory Results: 04/21/17 12:10 04/21/17 12:10 04/20/17 04/20/17 04/20/17 15:55 15:55 15:55 WBC 8.5 RBC 3.22 L Hgb 8.3 L Hct 26.1 L MCV 81 MCH 25.6 L MCHC 31.6 L RDW 16.5 H Plt Count 288 Seg Neutrophils % 65.1 Lymphocytes % 25.3 Monocytes % 5.7 Eosinophils % 3.1 Basophils % 0.8 Absolute Neutrophils 5.5 Absolute Lymphocytes 2.1 Absolute Monocytes 0.5 Absolute Eosinophils 0.3 Absolute Basophils 0.1 Retic Count (auto) Absolute Retic Sodium 137.0 Potassium 5.5 H Chloride 96 L Carbon Dioxide 34 H Anion Gap 7 BUN 28 H Creatinine 1.42 H Est GFR ( Amer) 44 L Est GFR (Non-Af Amer) 36 L Glucose 110 Calcium 8.8 Iron 26.6 L TIBC 289 % Saturation 9 Ferritin 99.20 Total Bilirubin 0.3 AST 26 ALT 32 Alkaline Phosphatase 89 Total Protein 7.0 Albumin 3.6 Vitamin B12 274.0 Folate 10.90 PTH Intact 04/20/17 04/20/17 04/21/17 17:26 21:55 12:10 WBC 7.9 RBC 3.29 L Hgb 8.5 L Hct 26.8 L MCV 81 MCH 25.9 L MCHC 31.8 L RDW 16.4 H Plt Count 286 Seg Neutrophils % 60.0 Lymphocytes % 30.5 Monocytes % 5.9 Eosinophils % 3.2 Basophils % 0.4 Absolute Neutrophils 4.8 Absolute Lymphocytes 2.4 Absolute Monocytes 0.5 Absolute Eosinophils 0.3 Absolute Basophils 0.0 Retic Count (auto) 4.01 H Absolute Retic 0.131 H Sodium Potassium Chloride Carbon Dioxide Anion Gap BUN Creatinine Est GFR ( Amer) Est GFR (Non-Af Amer) Glucose Calcium Iron TIBC % Saturation Ferritin Total Bilirubin AST ALT Alkaline Phosphatase Total Protein Albumin Vitamin B12 Folate PTH Intact 88.4 H 04/21/17 12:10 WBC RBC Hgb Hct MCV MCH MCHC RDW Plt Count Seg Neutrophils % Lymphocytes % Monocytes % Eosinophils % Basophils % Absolute Neutrophils Absolute Lymphocytes Absolute Monocytes Absolute Eosinophils Absolute Basophils Retic Count (auto) Absolute Retic Sodium 138.6 Potassium 4.7 Chloride 94 L Carbon Dioxide 37 H Anion Gap 8 BUN 26 H Creatinine 1.57 H Est GFR ( Amer) 39 L Est GFR (Non-Af Amer) 32 L Glucose 98 Calcium 8.9 Iron TIBC % Saturation Ferritin Total Bilirubin 0.3 AST 24 ALT 35 Alkaline Phosphatase 82 Total Protein 7.1 Albumin 3.5 Vitamin B12 Folate PTH Intact 04/20/17 04/20/17 04/20/17 15:55 15:55 21:55 Creatine Kinase 73 78 CK-MB (CK-2) 2.14 Troponin I < 0.012 NT-Pro-B Natriuret Pep 3470 H 04/20/17 04/21/17 04/21/17 21:55 04:07 04:07 Creatine Kinase 66 CK-MB (CK-2) 1.88 1.32 Troponin I < 0.012 < 0.012 NT-Pro-B Natriuret Pep Impressions: Chest X-Ray 04/20/17 00:00 IMPRESSION: Minimal right basilar airspace disease atelectasis versus pneumonia. Question trace right pleural effusion Renal Ultrasound 04/20/17 00:00 IMPRESSION: No hydronephrosis. Limited study Assessment & Plan - Diagnosis (1) Acute diastolic (congestive) heart failure Is this a current diagnosis for this admission?: Yes (2) Chronic venous hypertension (idiopathic) with ulcer and inflammation of bilateral lower extremity Is this a current diagnosis for this admission?: Yes (3) Pulmonary hypertension Is this a current diagnosis for this admission?: Yes (4) Cellulitis of right lower leg Is this a current diagnosis for this admission?: Yes (5) Hyperkalemia Is this a current diagnosis for this admission?: Yes (6) Anemia Qualifiers: Anemia type: unspecified type Qualified Code(s): D64.9 - Anemia, unspecified Is this a current diagnosis for this admission?: Yes (7) Chronic kidney disease, stage 3 (moderate) Is this a current diagnosis for this admission?: Yes (8) Iron deficiency Is this a current diagnosis for this admission?: Yes Plan: Transfuse iron infusion - Plan Summary Plan Summary: Continue ALL other treatment
[2017-04-21] MEDS ORDERED: IRON SUCROSE COMPLEX INJ/PF 100 MG/5 ML SDV IV ONE (14:30)
[2017-04-21] MEDS: GABAPENTIN 400 MG CAPSULE PO SCH ×2 (14:43→21:40)
--- NOTE | 2017-04-21 15:35 | PDOC PROGRESS REPORT ---
Subjective Progress Note for:: 04/21/17 Subjective:: Left leg pain stable Reason For Visit: CELLULITIS OF RIGHT LOWER LEG HYPERKALEMIA ANEMIA Physical Exam Vital Signs: Temp Pulse Resp BP Pulse Ox 97.7 F 73 20 133/59 H 97 04/21/17 11:22 04/21/17 11:22 04/21/17 11:22 04/21/17 11:22 04/21/17 11:22 Intake & Output 04/20/17 04/21/17 04/22/17 06:59 06:59 06:59 Intake Total 300 1755 875 Output Total 2 1450 1100 Balance 298 305 -225 Weight 191.1 kg 189.2 kg General appearance: PRESENT: no acute distress, cooperative Extremities exam: PRESENT: other - Bilateral lower extremity with compressive dressings. Dressings were recently changed. Results Laboratory Results: 04/21/17 12:10 04/21/17 12:10 04/20/17 04/20/17 04/20/17 15:55 15:55 15:55 WBC 8.5 RBC 3.22 L Hgb 8.3 L Hct 26.1 L MCV 81 MCH 25.6 L MCHC 31.6 L RDW 16.5 H Plt Count 288 Seg Neutrophils % 65.1 Lymphocytes % 25.3 Monocytes % 5.7 Eosinophils % 3.1 Basophils % 0.8 Absolute Neutrophils 5.5 Absolute Lymphocytes 2.1 Absolute Monocytes 0.5 Absolute Eosinophils 0.3 Absolute Basophils 0.1 Retic Count (auto) Absolute Retic Sodium 137.0 Potassium 5.5 H Chloride 96 L Carbon Dioxide 34 H Anion Gap 7 BUN 28 H Creatinine 1.42 H Est GFR ( Amer) 44 L Est GFR (Non-Af Amer) 36 L Glucose 110 Calcium 8.8 Iron 26.6 L TIBC 289 % Saturation 9 Ferritin 99.20 Total Bilirubin 0.3 AST 26 ALT 32 Alkaline Phosphatase 89 Total Protein 7.0 Albumin 3.6 Vitamin B12 274.0 Folate 10.90 PTH Intact 04/20/17 04/20/17 04/21/17 17:26 21:55 12:10 WBC 7.9 RBC 3.29 L Hgb 8.5 L Hct 26.8 L MCV 81 MCH 25.9 L MCHC 31.8 L RDW 16.4 H Plt Count 286 Seg Neutrophils % 60.0 Lymphocytes % 30.5 Monocytes % 5.9 Eosinophils % 3.2 Basophils % 0.4 Absolute Neutrophils 4.8 Absolute Lymphocytes 2.4 Absolute Monocytes 0.5 Absolute Eosinophils 0.3 Absolute Basophils 0.0 Retic Count (auto) 4.01 H Absolute Retic 0.131 H Sodium Potassium Chloride Carbon Dioxide Anion Gap BUN Creatinine Est GFR ( Amer) Est GFR (Non-Af Amer) Glucose Calcium Iron TIBC % Saturation Ferritin Total Bilirubin AST ALT Alkaline Phosphatase Total Protein Albumin Vitamin B12 Folate PTH Intact 88.4 H 04/21/17 12:10 WBC RBC Hgb Hct MCV MCH MCHC RDW Plt Count Seg Neutrophils % Lymphocytes % Monocytes % Eosinophils % Basophils % Absolute Neutrophils Absolute Lymphocytes Absolute Monocytes Absolute Eosinophils Absolute Basophils Retic Count (auto) Absolute Retic Sodium 138.6 Potassium 4.7 Chloride 94 L Carbon Dioxide 37 H Anion Gap 8 BUN 26 H Creatinine 1.57 H Est GFR ( Amer) 39 L Est GFR (Non-Af Amer) 32 L Glucose 98 Calcium 8.9 Iron TIBC % Saturation Ferritin Total Bilirubin 0.3 AST 24 ALT 35 Alkaline Phosphatase 82 Total Protein 7.1 Albumin 3.5 Vitamin B12 Folate PTH Intact 04/20/17 04/20/17 04/20/17 15:55 15:55 21:55 Creatine Kinase 73 78 CK-MB (CK-2) 2.14 Troponin I < 0.012 NT-Pro-B Natriuret Pep 3470 H 04/20/17 04/21/17 04/21/17 21:55 04:07 04:07 Creatine Kinase 66 CK-MB (CK-2) 1.88 1.32 Troponin I < 0.012 < 0.012 NT-Pro-B Natriuret Pep Impressions: Chest X-Ray 04/20/17 00:00 IMPRESSION: Minimal right basilar airspace disease atelectasis versus pneumonia. Question trace right pleural effusion Renal Ultrasound 04/20/17 00:00 IMPRESSION: No hydronephrosis. Limited study Assessment & Plan - Diagnosis (1) Venous stasis ulcer Is this a current diagnosis for this admission?: Yes Plan: Being treated conservatively with antibiotics and compressive dressings. Will reevaluate tomorrow at dressing change.
[2017-04-21] MEDS: NYSTATIN TOPICAL POWDER 15 GM TP SCH (17:59)
[2017-04-21] MEDS: NORMAL SALINE 250 ML with FUROSEMIDE 250 MG IV PRN ×2 (18:54)
[2017-04-21] MEDS: ATORVASTATIN CALCIUM 10 MG TABLET PO SCH (21:40)
[2017-04-22] MEDS: TRAMADOL HCL 50 MG TABLET PO PRN ×2 (00:01→10:35)
[2017-04-22] MEDS: CLINDAMYCIN 600 MG/D5W RTU 600 MG/50 ML RTUPB IV SCH ×5 (00:02→23:08)
[2017-04-22] MEDS: OXYCODONE-ACETAMINOPHEN 5-325 MG TABLET PO PRN ×3 (05:13→17:37)
[2017-04-22] MEDS: GABAPENTIN 400 MG CAPSULE PO SCH ×3 (05:13→21:16)
[2017-04-22] MEDS: LANSOPRAZOLE 30 MG TAB.RAP.DR PO SCH (05:13)
[2017-04-22 08:25] LABS: ABSOLUTE EOSINOPHILS # (AUTO) 0.3 10^3/uL (0.0-0.6); ABSOLUTE LYMPHOCYTES (AUTO) 2.3 10^3/uL (0.5-4.7); ABSOLUTE MONOCYTES (AUTO) 0.5 10^3/uL (0.1-1.4); ABSOLUTE NEUT (AUTO) 3.7 10^3/uL (1.7-8.2); BASOPHILS % (AUTO) 0.6 % (0-2); EOSINOPHILS % (AUTO) 4.7 % (0-6); HEMATOCRIT 26.9 % (36.0-47.0); HEMOGLOBIN 8.6 g/dL (12.0-15.5); LYMPHOCYTES % (AUTO) 33.6 % (13-45); MEAN CORPUSCULAR HEMOGLOBIN 25.9 pg (27.0-33.4); MEAN CORPUSCULAR HGB CONC 31.9 g/dL (32.0-36.0); MEAN CORPUSCULAR VOLUME 81 fl (80-97); MONOCYTES % (AUTO) 7.4 % (3-13); PLATELET COUNT 300 10^3/uL (150-450); RED BLOOD COUNT 3.32 10^6/uL (3.72-5.28); SEGMENTED NEUTROPHILS % (AUTO) 53.7 % (42-78); TOTAL CELLS COUNTED % (AUTO) 100 %; WHITE BLOOD COUNT 6.9 10^3/uL (4.0-10.5)
[2017-04-22 08:53] LABS: ALANINE AMINOTRANSFERASE 33 U/L (9-52); ALBUMIN 3.6 g/dL (3.5-5.0); ALKALINE PHOSPHATASE 76 U/L (38-126); ANION GAP 9 (5-19); ASPARTATE AMINO TRANSFERASE 23 U/L (14-36); BILIRUBIN,DIRECT 0.2 mg/dL (0.0-0.4); BILIRUBIN,TOTAL 0.2 mg/dL (0.2-1.3); BLOOD UREA NITROGEN 28 mg/dL (7-20); CALCIUM 8.6 mg/dL (8.4-10.2); CHLORIDE 92 mmol/L (98-107); GLUCOSE 94 mg/dL (75-110); POTASSIUM 4.9 mmol/L (3.6-5.0); SODIUM 140.7 mmol/L (137-145); TOTAL PROTEIN 7.2 g/dL (6.3-8.2)
--- NOTE | 2017-04-22 09:08 | PDOC PROGRESS REPORT ---
Subjective Progress Note for:: 04/22/17 Subjective:: Much less pains both legs since start of silvadene dressings Reason For Visit: CELLULITIS OF RIGHT LOWER LEG HYPERKALEMIA ANEMIA Physical Exam Vital Signs: Temp Pulse Resp BP Pulse Ox 98.2 F 72 18 131/82 H 97 04/22/17 08:32 04/22/17 08:32 04/22/17 08:32 04/22/17 08:32 04/22/17 08:32 Intake & Output 04/21/17 04/22/17 04/23/17 06:59 06:59 06:59 Intake Total 1755 3051 Output Total 1450 2300 Balance 305 751 Weight 189.2 kg 181.5 kg Exam: dressings intact. Edema appears to be improving. Results Laboratory Results: 04/22/17 08:00 04/21/17 04/21/17 04/22/17 12:10 12:10 08:00 WBC 7.9 6.9 RBC 3.29 L 3.32 L Hgb 8.5 L 8.6 L Hct 26.8 L 26.9 L MCV 81 81 MCH 25.9 L 25.9 L MCHC 31.8 L 31.9 L RDW 16.4 H 17.0 H Plt Count 286 300 Seg Neutrophils % 60.0 53.7 Lymphocytes % 30.5 33.6 Monocytes % 5.9 7.4 Eosinophils % 3.2 4.7 Basophils % 0.4 0.6 Absolute Neutrophils 4.8 3.7 Absolute Lymphocytes 2.4 2.3 Absolute Monocytes 0.5 0.5 Absolute Eosinophils 0.3 0.3 Absolute Basophils 0.0 0.0 Sodium 138.6 Potassium 4.7 Chloride 94 L Carbon Dioxide 37 H Anion Gap 8 BUN 26 H Creatinine 1.57 H Est GFR ( Amer) 39 L Est GFR (Non-Af Amer) 32 L Glucose 98 Calcium 8.9 Total Bilirubin 0.3 AST 24 ALT 35 Alkaline Phosphatase 82 Total Protein 7.1 Albumin 3.5 04/20/17 04/20/17 04/20/17 15:55 15:55 21:55 Creatine Kinase 73 78 CK-MB (CK-2) 2.14 Troponin I < 0.012 NT-Pro-B Natriuret Pep 3470 H 04/20/17 04/21/17 04/21/17 21:55 04:07 04:07 Creatine Kinase 66 CK-MB (CK-2) 1.88 1.32 Troponin I < 0.012 < 0.012 NT-Pro-B Natriuret Pep Impressions: Chest X-Ray 04/20/17 00:00 IMPRESSION: Minimal right basilar airspace disease atelectasis versus pneumonia. Question trace right pleural effusion Renal Ultrasound 04/20/17 00:00 IMPRESSION: No hydronephrosis. Limited study Assessment & Plan - Diagnosis (1) Chronic kidney disease, stage 3 (moderate) Is this a current diagnosis for this admission?: Yes (2) Chronic venous hypertension (idiopathic) with ulcer and inflammation of bilateral lower extremity Is this a current diagnosis for this admission?: Yes (3) Hyperkalemia Is this a current diagnosis for this admission?: Yes (4) Morbid obesity Is this a current diagnosis for this admission?: Yes (5) CKD (chronic kidney disease), stage III Is this a current diagnosis for this admission?: Yes (6) Morbid obesity with BMI of 60.0-69.9, adult Is this a current diagnosis for this admission?: Yes (7) Cellulitis of left leg Is this a current diagnosis for this admission?: Yes (8) Cellulitis of right leg Is this a current diagnosis for this admission?: Yes (9) Chronic venous stasis dermatitis Is this a current diagnosis for this admission?: Yes (10) Diabetes Qualifiers: Diabetes mellitus type: type 2 Diabetes mellitus complication status: with unspecified complications 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
[2017-04-22 09:10] LABS: CARBON DIOXIDE 40 mmol/L (22-30)
[2017-04-22] MEDS ORDERED: [UNRECOGNIZED DRUG - OTHER] PO SCH (10:00)
[2017-04-22] MEDS: AMLODIPINE BESYLATE 5 MG TABLET PO SCH (10:21)
[2017-04-22] MEDS: ENOXAPARIN SODIUM INJ 40 MG/0.4 ML DISP.SYRIN SUBCUT SCH (10:21)
[2017-04-22] MEDS: SERTRALINE HCL 50 MG TABLET PO SCH (10:22)
[2017-04-22] MEDS: CEFTRIAXONE SODIUM 1,000 MG in DEXTROSE 5%-WATER 50 ML IV SCH (10:22)
[2017-04-22] MEDS: MULTIVITAMIN TABLET PO SCH (10:22)
[2017-04-22] MEDS: GLIPIZIDE 5 MG TABLET PO SCH (10:22)
[2017-04-22] MEDS: NYSTATIN TOPICAL POWDER 15 GM TP SCH ×2 (10:36→17:38)
[2017-04-22] MEDS: SILVER SULFADIAZINE 1% CREAM 400 GM TP SCH ×2 (10:36→18:07)
--- NOTE | 2017-04-22 12:10 | PDOC PROGRESS REPORT ---
Subjective Progress Note for:: 04/22/17 Subjective:: Patient is seen by the bedside, still have crackles on auscultation of the chest Reason For Visit: CELLULITIS OF RIGHT LOWER LEG HYPERKALEMIA ANEMIA Physical Exam Vital Signs: Temp Pulse Resp BP Pulse Ox 98.2 F 60 15 131/82 H 92 04/22/17 08:32 04/22/17 12:01 04/22/17 12:01 04/22/17 08:32 04/22/17 12:01 Intake & Output 04/21/17 04/22/17 04/23/17 06:59 06:59 06:59 Intake Total 1755 3051 Output Total 1450 2300 Balance 305 751 Weight 189.2 kg 181.5 kg General appearance: PRESENT: mild distress Head exam: PRESENT: atraumatic, normocephalic Eye exam: PRESENT: PERRLA Ear exam: PRESENT: normal external ear exam Mouth exam: PRESENT: moist, tongue midline Neck exam: PRESENT: full ROM Respiratory exam: PRESENT: crackles Cardiovascular exam: PRESENT: RRR, +S1, +S2 Vascular exam: PRESENT: normal capillary refill GI/Abdominal exam: PRESENT: normal bowel sounds, soft Rectal exam: PRESENT: deferred Neurological exam: PRESENT: alert, awake, oriented to person, oriented to place , oriented to time, oriented to situation, CN II-XII grossly intact Psychiatric exam: PRESENT: appropriate affect, normal mood Skin exam: PRESENT: dry, intact, warm Results Laboratory Results: 04/22/17 08:00 04/22/17 08:00 04/21/17 04/21/17 04/22/17 12:10 12:10 08:00 WBC 7.9 6.9 RBC 3.29 L 3.32 L Hgb 8.5 L 8.6 L Hct 26.8 L 26.9 L MCV 81 81 MCH 25.9 L 25.9 L MCHC 31.8 L 31.9 L RDW 16.4 H 17.0 H Plt Count 286 300 Seg Neutrophils % 60.0 53.7 Lymphocytes % 30.5 33.6 Monocytes % 5.9 7.4 Eosinophils % 3.2 4.7 Basophils % 0.4 0.6 Absolute Neutrophils 4.8 3.7 Absolute Lymphocytes 2.4 2.3 Absolute Monocytes 0.5 0.5 Absolute Eosinophils 0.3 0.3 Absolute Basophils 0.0 0.0 Sodium 138.6 Potassium 4.7 Chloride 94 L Carbon Dioxide 37 H Anion Gap 8 BUN 26 H Creatinine 1.57 H Est GFR ( Amer) 39 L Est GFR (Non-Af Amer) 32 L Glucose 98 Calcium 8.9 Total Bilirubin 0.3 AST 24 ALT 35 Alkaline Phosphatase 82 Total Protein 7.1 Albumin 3.5 04/22/17 08:00 WBC RBC Hgb Hct MCV MCH MCHC RDW Plt Count Seg Neutrophils % Lymphocytes % Monocytes % Eosinophils % Basophils % Absolute Neutrophils Absolute Lymphocytes Absolute Monocytes Absolute Eosinophils Absolute Basophils Sodium 140.7 Potassium 4.9 Chloride 92 L Carbon Dioxide 40 H* Anion Gap 9 BUN 28 H Creatinine 1.51 H Est GFR ( Amer) 41 L Est GFR (Non-Af Amer) 34 L Glucose 94 Calcium 8.6 Total Bilirubin 0.2 AST 23 ALT 33 Alkaline Phosphatase 76 Total Protein 7.2 Albumin 3.6 04/20/17 04/20/17 04/20/17 15:55 15:55 21:55 Creatine Kinase 73 78 CK-MB (CK-2) 2.14 Troponin I < 0.012 NT-Pro-B Natriuret Pep 3470 H 04/20/17 04/21/17 04/21/17 21:55 04:07 04:07 Creatine Kinase 66 CK-MB (CK-2) 1.88 1.32 Troponin I < 0.012 < 0.012 NT-Pro-B Natriuret Pep Impressions: Chest X-Ray 04/20/17 00:00 IMPRESSION: Minimal right basilar airspace disease atelectasis versus pneumonia. Question trace right pleural effusion Renal Ultrasound 04/20/17 00:00 IMPRESSION: No hydronephrosis. Limited study Assessment & Plan - Diagnosis (1) Acute diastolic (congestive) heart failure Is this a current diagnosis for this admission?: Yes (2) Chronic venous hypertension (idiopathic) with ulcer and inflammation of bilateral lower extremity Is this a current diagnosis for this admission?: Yes (3) Pulmonary hypertension Is this a current diagnosis for this admission?: Yes (4) Cellulitis of right lower leg Is this a current diagnosis for this admission?: Yes (5) Hyperkalemia Is this a current diagnosis for this admission?: Yes (6) Anemia Qualifiers: Anemia type: unspecified type Qualified Code(s): D64.9 - Anemia, unspecified Is this a current diagnosis for this admission?: Yes (7) Chronic kidney disease, stage 3 (moderate) Is this a current diagnosis for this admission?: Yes (8) Iron deficiency Is this a current diagnosis for this admission?: Yes - Plan Summary Plan Summary: continue Treatment
--- NOTE | 2017-04-22 14:21 | Physician Advisory Note ---
Physician Advisor ProgressNote .: Pursuant to the plan for [facility], I have reviewed the medical record for this patient. Physician Advisor Statement: Nice documentation of Acute diastolic CHF, with supporting s/s, morbid obesity. Please consider documenting, if you agree: 1. "Anemia of CKD & ____ [nutritional? chronic blood loss from ___?] Fe deficiency" - Coders aren't allowed to assume causality. Thanks! CK
--- NOTE | 2017-04-22 18:45 | PDOC PROGRESS REPORT ---
Subjective Progress Note for:: 04/22/17 - follow up from this am Subjective:: less pains lower extremities Reason For Visit: CELLULITIS OF RIGHT LOWER LEG HYPERKALEMIA ANEMIA Physical Exam Vital Signs: Temp Pulse Resp BP Pulse Ox 97.8 F 78 18 151/74 H 96 04/22/17 16:11 04/22/17 16:11 04/22/17 16:11 04/22/17 16:11 04/22/17 16:11 Intake & Output 04/21/17 04/22/17 04/23/17 06:59 06:59 06:59 Intake Total 1755 3051 350 Output Total 1450 2300 700 Balance 305 751 -350 Weight 189.2 kg 181.5 kg Exam: Dressings removed. Less erythema and tenderness to wounds in both lower extremities Results Laboratory Results: 04/22/17 08:00 04/22/17 08:00 04/22/17 04/22/17 08:00 08:00 WBC 6.9 RBC 3.32 L Hgb 8.6 L Hct 26.9 L MCV 81 MCH 25.9 L MCHC 31.9 L RDW 17.0 H Plt Count 300 Seg Neutrophils % 53.7 Lymphocytes % 33.6 Monocytes % 7.4 Eosinophils % 4.7 Basophils % 0.6 Absolute Neutrophils 3.7 Absolute Lymphocytes 2.3 Absolute Monocytes 0.5 Absolute Eosinophils 0.3 Absolute Basophils 0.0 Sodium 140.7 Potassium 4.9 Chloride 92 L Carbon Dioxide 40 H* Anion Gap 9 BUN 28 H Creatinine 1.51 H Est GFR ( Amer) 41 L Est GFR (Non-Af Amer) 34 L Glucose 94 Calcium 8.6 Total Bilirubin 0.2 AST 23 ALT 33 Alkaline Phosphatase 76 Total Protein 7.2 Albumin 3.6 04/20/17 04/20/17 04/20/17 15:55 15:55 21:55 Creatine Kinase 73 78 CK-MB (CK-2) 2.14 Troponin I < 0.012 NT-Pro-B Natriuret Pep 3470 H 04/20/17 04/21/17 04/21/17 21:55 04:07 04:07 Creatine Kinase 66 CK-MB (CK-2) 1.88 1.32 Troponin I < 0.012 < 0.012 NT-Pro-B Natriuret Pep Impressions: Chest X-Ray 04/20/17 00:00 IMPRESSION: Minimal right basilar airspace disease atelectasis versus pneumonia. Question trace right pleural effusion Renal Ultrasound 04/20/17 00:00 IMPRESSION: No hydronephrosis. Limited study Assessment & Plan - Diagnosis (1) Chronic kidney disease, stage 3 (moderate) Is this a current diagnosis for this admission?: Yes (2) Chronic venous hypertension (idiopathic) with ulcer and inflammation of bilateral lower extremity Is this a current diagnosis for this admission?: Yes (3) Hyperkalemia Is this a current diagnosis for this admission?: Yes (4) Morbid obesity Is this a current diagnosis for this admission?: Yes (5) CKD (chronic kidney disease), stage III Is this a current diagnosis for this admission?: Yes (6) Morbid obesity with BMI of 60.0-69.9, adult Is this a current diagnosis for this admission?: Yes (7) Cellulitis of left leg Is this a current diagnosis for this admission?: Yes (8) Cellulitis of right leg Is this a current diagnosis for this admission?: Yes (9) Chronic venous stasis dermatitis Is this a current diagnosis for this admission?: Yes (10) Diabetes Qualifiers: Diabetes mellitus type: type 2 Diabetes mellitus complication status: with unspecified complications Diabetes mellitus oil heaterman insulin use: with prison use Qualified Code(s): E11.8 - Type 2 diabetes mellitus with unspecified complications Is this a current diagnosis for this admission?: Yes (12) Hypertension Qualifiers: Hypertension type: essential hypertension Qualified Code(s): I10 - Essential (primary) hypertension Is this a current diagnosis for this admission?: Yes - Time Time Spent with patient: 15-24 minutes - Plan Summary Plan Summary: continue silvadene and IV antibiotics
[2017-04-22] MEDS: NORMAL SALINE 250 ML with FUROSEMIDE 250 MG IV PRN ×2 (20:47)
[2017-04-22] MEDS: ATORVASTATIN CALCIUM 10 MG TABLET PO SCH (21:15)
[2017-04-23] MEDS: OXYCODONE-ACETAMINOPHEN 5-325 MG TABLET PO PRN ×3 (01:21→13:34)
[2017-04-23] MEDS: TRAMADOL HCL 50 MG TABLET PO PRN ×2 (02:10→08:24)
[2017-04-23] MEDS: SILVER SULFADIAZINE 1% CREAM 400 GM TP SCH (02:11)
[2017-04-23] MEDS: LANSOPRAZOLE 30 MG TAB.RAP.DR PO SCH (05:20)
[2017-04-23] MEDS: GABAPENTIN 400 MG CAPSULE PO SCH ×3 (05:20→22:12)
[2017-04-23] MEDS: CLINDAMYCIN 600 MG/D5W RTU 600 MG/50 ML RTUPB IV SCH ×3 (05:21→17:45)
[2017-04-23 08:35] LABS: ABSOLUTE EOSINOPHILS # (AUTO) 0.3 10^3/uL (0.0-0.6); ABSOLUTE LYMPHOCYTES (AUTO) 1.9 10^3/uL (0.5-4.7); ABSOLUTE MONOCYTES (AUTO) 0.5 10^3/uL (0.1-1.4); ABSOLUTE NEUT (AUTO) 3.6 10^3/uL (1.7-8.2); BASOPHILS % (AUTO) 0.7 % (0-2); EOSINOPHILS % (AUTO) 5.2 % (0-6); HEMATOCRIT 28.8 % (36.0-47.0); HEMOGLOBIN 9.1 g/dL (12.0-15.5); LYMPHOCYTES % (AUTO) 30.4 % (13-45); MEAN CORPUSCULAR HEMOGLOBIN 25.7 pg (27.0-33.4); MEAN CORPUSCULAR HGB CONC 31.7 g/dL (32.0-36.0); MEAN CORPUSCULAR VOLUME 81 fl (80-97); MONOCYTES % (AUTO) 7.4 % (3-13); PLATELET COUNT 307 10^3/uL (150-450); RED BLOOD COUNT 3.55 10^6/uL (3.72-5.28); RED CELL DISTRIBUTION WIDTH 16.5 % (11.5-14.0); SEGMENTED NEUTROPHILS % (AUTO) 56.3 % (42-78); TOTAL CELLS COUNTED % (AUTO) 100 %; WHITE BLOOD COUNT 6.4 10^3/uL (4.0-10.5)
[2017-04-23 08:42] LABS: ALANINE AMINOTRANSFERASE 30 U/L (9-52); ALBUMIN 3.8 g/dL (3.5-5.0); ALKALINE PHOSPHATASE 75 U/L (38-126); ASPARTATE AMINO TRANSFERASE 21 U/L (14-36); BILIRUBIN,DIRECT 0.2 mg/dL (0.0-0.4); BILIRUBIN,TOTAL 0.2 mg/dL (0.2-1.3); BLOOD UREA NITROGEN 27 mg/dL (7-20); CALCIUM 8.7 mg/dL (8.4-10.2); CHLORIDE 91 mmol/L (98-107); GLUCOSE 108 mg/dL (75-110); POTASSIUM 4.4 mmol/L (3.6-5.0); SODIUM 140.1 mmol/L (137-145); TOTAL PROTEIN 7.6 g/dL (6.3-8.2)
[2017-04-23 08:52] LABS: ANION GAP 10 (5-19); CARBON DIOXIDE 39 mmol/L (22-30)
[2017-04-23] MEDS: SERTRALINE HCL 50 MG TABLET PO SCH (10:15)
[2017-04-23] MEDS: AMLODIPINE BESYLATE 5 MG TABLET PO SCH (10:15)
[2017-04-23] MEDS: MULTIVITAMIN TABLET PO SCH (10:15)
[2017-04-23] MEDS: ENOXAPARIN SODIUM INJ 40 MG/0.4 ML DISP.SYRIN SUBCUT SCH (10:15)
[2017-04-23] MEDS: GLIPIZIDE 5 MG TABLET PO SCH (10:17)
[2017-04-23] MEDS: NYSTATIN TOPICAL POWDER 15 GM TP SCH ×2 (10:19→18:09)
[2017-04-23] MEDS: CEFTRIAXONE SODIUM 1,000 MG in DEXTROSE 5%-WATER 50 ML IV SCH (10:21)
--- NOTE | 2017-04-23 12:58 | PDOC PROGRESS REPORT ---
Subjective Progress Note for:: 04/23/17 Subjective:: Patient is currently doing fair still complaining of pain on the left lower extremity patient seen by the surgery change the dressings and suggest continues to antibiotic Reason For Visit: CELLULITIS OF RIGHT LOWER LEG HYPERKALEMIA ANEMIA Physical Exam Vital Signs: Temp Pulse Resp BP Pulse Ox 98.7 F 78 15 133/60 H 99 04/23/17 11:28 04/23/17 11:28 04/23/17 11:28 04/23/17 11:28 04/23/17 11:28 Intake & Output 04/22/17 04/23/17 04/24/17 06:59 06:59 06:59 Intake Total 3051 1152 577 Output Total 2300 700 Balance 751 452 577 Weight 181.5 kg General appearance: PRESENT: no acute distress, well-developed, well-nourished Head exam: PRESENT: atraumatic, normocephalic Eye exam: PRESENT: conjunctiva pink, EOMI, PERRLA. ABSENT: scleral icterus Ear exam: PRESENT: normal external ear exam Mouth exam: PRESENT: moist, tongue midline Neck exam: PRESENT: full ROM. ABSENT: carotid bruit, JVD, lymphadenopathy, thyromegaly Respiratory exam: PRESENT: decreased breath sounds Cardiovascular exam: PRESENT: RRR. ABSENT: diastolic murmur, rubs, systolic murmur Pulses: PRESENT: normal dorsalis pedis pul, +2 pedal pulses bilateral Vascular exam: PRESENT: normal capillary refill GI/Abdominal exam: PRESENT: normal bowel sounds, soft. ABSENT: distended, guarding, mass, organolmegaly, rebound, tenderness Rectal exam: PRESENT: deferred Extremities exam: PRESENT: pedal edema Additional comments: On the left lower extremity with a draining wound is patients with some edema and redness Neurological exam: PRESENT: alert, awake, oriented to person, oriented to place , oriented to time, oriented to situation, CN II-XII grossly intact. ABSENT: motor sensory deficit Psychiatric exam: PRESENT: appropriate affect, normal mood. ABSENT: homicidal ideation, suicidal ideation Skin exam: PRESENT: dry, intact, warm. ABSENT: cyanosis, rash Results Laboratory Results: 04/23/17 08:00 04/23/17 08:00 04/20/17 04/23/17 04/23/17 15:55 08:00 08:00 WBC 6.4 RBC 3.55 L Hgb 9.1 L Hct 28.8 L MCV 81 MCH 25.7 L MCHC 31.7 L RDW 16.5 H Plt Count 307 Seg Neutrophils % 56.3 Lymphocytes % 30.4 Monocytes % 7.4 Eosinophils % 5.2 Basophils % 0.7 Absolute Neutrophils 3.6 Absolute Lymphocytes 1.9 Absolute Monocytes 0.5 Absolute Eosinophils 0.3 Absolute Basophils 0.0 Sodium 140.1 Potassium 4.4 Chloride 91 L Carbon Dioxide 39 H Anion Gap 10 BUN 27 H Creatinine 1.38 H Est GFR ( Amer) 46 L Est GFR (Non-Af Amer) 38 L Glucose 108 Calcium 8.7 Transferrin 211 Total Bilirubin 0.2 AST 21 ALT 30 Alkaline Phosphatase 75 Total Protein 7.6 Albumin 3.8 04/20/17 04/20/17 04/20/17 15:55 15:55 21:55 Creatine Kinase 73 78 CK-MB (CK-2) 2.14 Troponin I < 0.012 NT-Pro-B Natriuret Pep 3470 H 04/20/17 04/21/17 04/21/17 21:55 04:07 04:07 Creatine Kinase 66 CK-MB (CK-2) 1.88 1.32 Troponin I < 0.012 < 0.012 NT-Pro-B Natriuret Pep Impressions: Chest X-Ray 04/20/17 00:00 IMPRESSION: Minimal right basilar airspace disease atelectasis versus pneumonia. Question trace right pleural effusion Renal Ultrasound 04/20/17 00:00 IMPRESSION: No hydronephrosis. Limited study Assessment & Plan - Diagnosis (1) Acute diastolic (congestive) heart failure Is this a current diagnosis for this admission?: Yes Plan: Continues to Lasix drips (2) Anemia Qualifiers: Anemia type: other cause Other causes of anemia: other cause, not classified Qualified Code(s): D64.89 - Other specified anemias Is this a current diagnosis for this admission?: Yes Plan: Currently all stable (3) Chronic venous hypertension (idiopathic) with ulcer and inflammation of bilateral lower extremity Is this a current diagnosis for this admission?: Yes (4) Cellulitis of lower extremity Qualifiers: Laterality: left Qualified Code(s): L03.116 - Cellulitis of left lower limb Is this a current diagnosis for this admission?: Yes Plan: continue IV antibiotic (5) Diabetes Qualifiers: Diabetes mellitus type: type 2 Diabetes mellitus complication status: with unspecified complications Diabetes mellitus technician terminal and repeater insulin use: with technician terminal and repeater use Qualified Code(s): E11.8 - Type 2 diabetes mellitus with unspecified complications Is this a current diagnosis for this admission?: Yes (6) Hypertension Qualifiers: Hypertension type: essential hypertension Qualified Code(s): I10 - Essential (primary) hypertension Is this a current diagnosis for this admission?: Yes - Time Time Spent with patient: 15-24 minutes Medications reviewed and adjusted accordingly: Yes Within: Other - Inpatient Certification Medical Necessity: Need Close Monitoring Due to Risk of Patient Decompensation, Need for IV Antibiotics Post Hospital Care: D/C Director Erp Documentation - Plan Summary Plan Summary: Continues to IV antibiotic increase the pain medications while patient still complained a lot of pain in the left lower extremity
--- NOTE | 2017-04-23 16:13 | PDOC PROGRESS REPORT ---
Subjective Progress Note for:: 04/23/17 Subjective:: less pains on both lower leg wounds Reason For Visit: CELLULITIS OF RIGHT LOWER LEG HYPERKALEMIA ANEMIA Physical Exam Vital Signs: Temp Pulse Resp BP Pulse Ox 98.7 F 87 15 133/60 H 99 04/23/17 11:28 04/23/17 14:00 04/23/17 11:28 04/23/17 11:28 04/23/17 11:28 Intake & Output 04/22/17 04/23/17 04/24/17 06:59 06:59 06:59 Intake Total 3051 1152 577 Output Total 2300 700 Balance 751 452 577 Weight 181.5 kg Exam: Edema on both legs improving. Cellulitis on both legs improving with IV antibiotics and silvadene dressings Results Laboratory Results: 04/23/17 08:00 04/23/17 08:00 04/20/17 04/23/17 04/23/17 15:55 08:00 08:00 WBC 6.4 RBC 3.55 L Hgb 9.1 L Hct 28.8 L MCV 81 MCH 25.7 L MCHC 31.7 L RDW 16.5 H Plt Count 307 Seg Neutrophils % 56.3 Lymphocytes % 30.4 Monocytes % 7.4 Eosinophils % 5.2 Basophils % 0.7 Absolute Neutrophils 3.6 Absolute Lymphocytes 1.9 Absolute Monocytes 0.5 Absolute Eosinophils 0.3 Absolute Basophils 0.0 Sodium 140.1 Potassium 4.4 Chloride 91 L Carbon Dioxide 39 H Anion Gap 10 BUN 27 H Creatinine 1.38 H Est GFR ( Amer) 46 L Est GFR (Non-Af Amer) 38 L Glucose 108 Calcium 8.7 Transferrin 211 Total Bilirubin 0.2 AST 21 ALT 30 Alkaline Phosphatase 75 Total Protein 7.6 Albumin 3.8 04/20/17 04/20/17 04/20/17 15:55 15:55 21:55 Creatine Kinase 73 78 CK-MB (CK-2) 2.14 Troponin I < 0.012 NT-Pro-B Natriuret Pep 3470 H 04/20/17 04/21/17 04/21/17 21:55 04:07 04:07 Creatine Kinase 66 CK-MB (CK-2) 1.88 1.32 Troponin I < 0.012 < 0.012 NT-Pro-B Natriuret Pep Impressions: Chest X-Ray 04/20/17 00:00 IMPRESSION: Minimal right basilar airspace disease atelectasis versus pneumonia. Question trace right pleural effusion Renal Ultrasound 04/20/17 00:00 IMPRESSION: No hydronephrosis. Limited study Assessment & Plan - Diagnosis (1) Chronic kidney disease, stage 3 (moderate) Is this a current diagnosis for this admission?: Yes (2) Chronic venous hypertension (idiopathic) with ulcer and inflammation of bilateral lower extremity Is this a current diagnosis for this admission?: Yes (3) Hyperkalemia Is this a current diagnosis for this admission?: Yes (4) Morbid obesity Is this a current diagnosis for this admission?: Yes (5) CKD (chronic kidney disease), stage III Is this a current diagnosis for this admission?: Yes (6) Morbid obesity with BMI of 60.0-69.9, adult Is this a current diagnosis for this admission?: Yes (7) Cellulitis of left leg Is this a current diagnosis for this admission?: Yes (8) Cellulitis of right leg Is this a current diagnosis for this admission?: Yes (9) Chronic venous stasis dermatitis Is this a current diagnosis for this admission?: Yes (10) Diabetes Qualifiers: Diabetes mellitus type: type 2 Diabetes mellitus complication status: with unspecified complications Diabetes mellitus termite renewal inspector insulin use: with skilled nursing use Qualified Code(s): E11.8 - Type 2 diabetes mellitus with unspecified complications Is this a current diagnosis for this admission?: Yes (12) Hypertension Qualifiers: Hypertension type: essential hypertension Qualified Code(s): I10 - Essential (primary) hypertension Is this a current diagnosis for this admission?: Yes - Time Time Spent with patient: 15-24 minutes - Inpatient Certification Medical Necessity: Need for Pain Control, Need for IV Antibiotics, Risk of Complication if Not Cared For in Hospital - Plan Summary Plan Summary: Continue IV antibiotics and silvadene dressings
[2017-04-23] MEDS: NORMAL SALINE 250 ML with FUROSEMIDE 250 MG IV PRN ×2 (17:46)
[2017-04-23] MEDS: ATORVASTATIN CALCIUM 10 MG TABLET PO SCH (22:12)
[2017-04-24] MEDS: PHARMACY COMMUNICATION ORDER MC SCH ×2 (00:22→18:17)
[2017-04-24] MEDS: CLINDAMYCIN 600 MG/D5W RTU 600 MG/50 ML RTUPB IV SCH ×5 (00:29→23:48)
[2017-04-24] MEDS: TRAMADOL HCL 50 MG TABLET PO PRN ×3 (02:42→23:59)
[2017-04-24] MEDS: SILVER SULFADIAZINE 1% CREAM 400 GM TP SCH ×2 (02:43→15:20)
[2017-04-24] MEDS: OXYCODONE HCL IR 5 MG TABLET PO PRN ×3 (03:00→18:23)
[2017-04-24] MEDS: OXYCODONE-ACETAMINOPHEN 5-325 MG TABLET PO PRN ×3 (03:01→18:22)
[2017-04-24] MEDS: LANSOPRAZOLE 30 MG TAB.RAP.DR PO SCH (07:48)
[2017-04-24] MEDS: GABAPENTIN 400 MG CAPSULE PO SCH ×3 (07:48→22:49)
[2017-04-24 08:38] LABS: ABSOLUTE BASOPHILS # (AUTO) 0.1 10^3/uL (0.0-0.2); ABSOLUTE EOSINOPHILS # (AUTO) 0.3 10^3/uL (0.0-0.6); ABSOLUTE LYMPHOCYTES (AUTO) 2.2 10^3/uL (0.5-4.7); ABSOLUTE MONOCYTES (AUTO) 0.5 10^3/uL (0.1-1.4); ABSOLUTE NEUT (AUTO) 3.4 10^3/uL (1.7-8.2); EOSINOPHILS % (AUTO) 4.1 % (0-6); HEMOGLOBIN 9.8 g/dL (12.0-15.5); LYMPHOCYTES % (AUTO) 34.3 % (13-45); MEAN CORPUSCULAR HEMOGLOBIN 25.7 pg (27.0-33.4); MEAN CORPUSCULAR HGB CONC 31.6 g/dL (32.0-36.0); MEAN CORPUSCULAR VOLUME 82 fl (80-97); MONOCYTES % (AUTO) 7.3 % (3-13); PLATELET COUNT 308 10^3/uL (150-450); RED CELL DISTRIBUTION WIDTH 16.5 % (11.5-14.0); SEGMENTED NEUTROPHILS % (AUTO) 53.3 % (42-78); TOTAL CELLS COUNTED % (AUTO) 100 %; WHITE BLOOD COUNT 6.5 10^3/uL (4.0-10.5)
[2017-04-24 09:00] LABS: ALANINE AMINOTRANSFERASE 36 U/L (9-52); ALBUMIN 4.1 g/dL (3.5-5.0); ALKALINE PHOSPHATASE 82 U/L (38-126); ASPARTATE AMINO TRANSFERASE 26 U/L (14-36); BILIRUBIN,DIRECT 0.2 mg/dL (0.0-0.4); BILIRUBIN,TOTAL 0.3 mg/dL (0.2-1.3); BLOOD UREA NITROGEN 28 mg/dL (7-20); CHLORIDE 89 mmol/L (98-107); GLUCOSE 89 mg/dL (75-110); POTASSIUM 4.1 mmol/L (3.6-5.0); SODIUM 140.1 mmol/L (137-145); TOTAL PROTEIN 8.1 g/dL (6.3-8.2)
[2017-04-24 09:06] LABS: ANION GAP 11 (5-19)
[2017-04-24 09:23] LABS: CARBON DIOXIDE 40 mmol/L (22-30)
--- NOTE | 2017-04-24 09:49 | PDOC PROGRESS REPORT ---
Subjective Progress Note for:: 04/24/17 Subjective:: less pains on both leg wounds Reason For Visit: CELLULITIS OF RIGHT LOWER LEG HYPERKALEMIA ANEMIA Physical Exam Vital Signs: Temp Pulse Resp BP Pulse Ox 98.6 F 80 19 137/64 H 98 04/24/17 07:46 04/24/17 07:46 04/24/17 07:46 04/24/17 07:46 04/24/17 09:43 Intake & Output 04/23/17 04/24/17 04/25/17 06:59 06:59 06:59 Intake Total 1152 2821 Output Total 700 1500 Balance 452 1321 Weight 181.4 kg Exam: edema on both legs continue to improve. Wounds also improving with curent regimen Results Laboratory Results: 04/24/17 08:15 04/24/17 08:15 04/20/17 04/24/17 04/24/17 15:55 08:15 08:15 WBC 6.5 RBC 3.80 Hgb 9.8 L Hct 31.0 L MCV 82 MCH 25.7 L MCHC 31.6 L RDW 16.5 H Plt Count 308 Seg Neutrophils % 53.3 Lymphocytes % 34.3 Monocytes % 7.3 Eosinophils % 4.1 Basophils % 1.0 Absolute Neutrophils 3.4 Absolute Lymphocytes 2.2 Absolute Monocytes 0.5 Absolute Eosinophils 0.3 Absolute Basophils 0.1 Sodium 140.1 Potassium 4.1 Chloride 89 L Carbon Dioxide 40 H* Anion Gap 11 BUN 28 H Creatinine 1.29 H Est GFR ( Amer) 49 L Est GFR (Non-Af Amer) 41 L Glucose 89 Calcium 9.0 Transferrin 211 Total Bilirubin 0.3 AST 26 ALT 36 Alkaline Phosphatase 82 Total Protein 8.1 Albumin 4.1 04/20/17 04/20/17 04/20/17 15:55 15:55 21:55 Creatine Kinase 73 78 CK-MB (CK-2) 2.14 Troponin I < 0.012 NT-Pro-B Natriuret Pep 3470 H 04/20/17 04/21/17 04/21/17 21:55 04:07 04:07 Creatine Kinase 66 CK-MB (CK-2) 1.88 1.32 Troponin I < 0.012 < 0.012 NT-Pro-B Natriuret Pep Impressions: Chest X-Ray 04/20/17 00:00 IMPRESSION: Minimal right basilar airspace disease atelectasis versus pneumonia. Question trace right pleural effusion Renal Ultrasound 04/20/17 00:00 IMPRESSION: No hydronephrosis. Limited study Assessment & Plan - Diagnosis (1) Chronic kidney disease, stage 3 (moderate) Is this a current diagnosis for this admission?: Yes (2) Chronic venous hypertension (idiopathic) with ulcer and inflammation of bilateral lower extremity Is this a current diagnosis for this admission?: Yes (3) Hyperkalemia Is this a current diagnosis for this admission?: Yes (4) Morbid obesity Is this a current diagnosis for this admission?: Yes (5) CKD (chronic kidney disease), stage III Is this a current diagnosis for this admission?: Yes (6) Morbid obesity with BMI of 60.0-69.9, adult Is this a current diagnosis for this admission?: Yes (7) Cellulitis of left leg Is this a current diagnosis for this admission?: Yes (8) Cellulitis of right leg Is this a current diagnosis for this admission?: Yes (9) Chronic venous stasis dermatitis Is this a current diagnosis for this admission?: Yes (10) Diabetes Qualifiers: Diabetes mellitus type: type 2 Diabetes mellitus complication status: with unspecified complications Diabetes mellitus senior care insulin use: with senior care use Qualified Code(s): E11.8 - Type 2 diabetes mellitus with unspecified complications Is this a current diagnosis for this admission?: Yes (12) Hypertension Qualifiers: Hypertension type: essential hypertension Qualified Code(s): I10 - Essential (primary) hypertension Is this a current diagnosis for this admission?: Yes - Time Time Spent with patient: 15-24 minutes - Plan Summary Plan Summary: Continue silvadene cream dressings and IV antibiotics
[2017-04-24] MEDS ORDERED: ERGOCALCIFEROL (VITAMIN D2) 50000 UNIT (1.25 MG) CAPSULE PO SCH (10:00)
[2017-04-24] MEDS: CEFTRIAXONE SODIUM 1,000 MG in DEXTROSE 5%-WATER 50 ML IV SCH (10:48)
[2017-04-24] MEDS: NYSTATIN TOPICAL POWDER 15 GM TP SCH ×2 (10:48→18:07)
[2017-04-24] MEDS: ENOXAPARIN SODIUM INJ 40 MG/0.4 ML DISP.SYRIN SUBCUT SCH (10:48)
[2017-04-24] MEDS: MULTIVITAMIN TABLET PO SCH (10:49)
[2017-04-24] MEDS: AMLODIPINE BESYLATE 5 MG TABLET PO SCH (10:49)
[2017-04-24] MEDS: GLIPIZIDE 5 MG TABLET PO SCH (10:49)
[2017-04-24] MEDS: SERTRALINE HCL 50 MG TABLET PO SCH (10:49)
[2017-04-24] MEDS: NORMAL SALINE 250 ML with FUROSEMIDE 250 MG IV PRN ×2 (18:09)
--- NOTE | 2017-04-24 21:43 | PROGRESS NOTE E ---
Progress Note NAME: SERINA LEE : 1945 AGE: 71Y DATE: 04/24/2017 ROOM: 309 SUBJECTIVE: The patient is apparently doing better with the leg pain after increasing the pain medications. The patient otherwise denied any chest pain without any shortness of breath. The patient is supposed to use a CPAP machine at home but not currently here. OBJECTIVE: VITAL SIGNS: Currently stable. GENERAL: The patient is alert, awake, oriented. HEAD AND NECK: Normocephalic. PERRL. LUNGS: No wheezing. No rales. Decreased breath sounds bilaterally. HEART: S1 and S2 is present. ABDOMEN: Soft. Bowel sounds present. EXTREMITIES: Bilateral leg edema with dressings intact. ASSESSMENT: 1. BILATERAL LEG WOUNDS WITH CELLULITIS. 2. ACUTE CONGESTIVE HEART FAILURE. 3. SLEEP APNEA. 4. HYPERTENSION. 5. HYPERLIPIDEMIA. 6. MORBID OBESITY. PLAN: The plan at this point is to continue the IV antibiotics. Continue IV Lasix drip. Reviewed all the labs. The patient will be ordered a CPAP machine and continue to monitor the patient at this point. DICTATING PHYSICIAN: CHACE BOWDEN M.D. [id number] PHY#: [id number] [id number] JOB#: [id number] ACCT: [id number] cc: >
[2017-04-24] MEDS: ATORVASTATIN CALCIUM 10 MG TABLET PO SCH (22:49)
[2017-04-25] MEDS: SILVER SULFADIAZINE 1% CREAM 400 GM TP SCH ×3 (03:55→21:51)
[2017-04-25] MEDS: TRAMADOL HCL 50 MG TABLET PO PRN (04:05)
[2017-04-25] MEDS: OXYCODONE-ACETAMINOPHEN 5-325 MG TABLET PO PRN ×4 (05:47→21:05)
[2017-04-25] MEDS: LANSOPRAZOLE 30 MG TAB.RAP.DR PO SCH (05:47)
[2017-04-25] MEDS: GABAPENTIN 400 MG CAPSULE PO SCH ×3 (05:48→21:05)
[2017-04-25] MEDS: OXYCODONE HCL IR 5 MG TABLET PO PRN ×4 (05:48→21:05)
[2017-04-25] MEDS: CLINDAMYCIN 600 MG/D5W RTU 600 MG/50 ML RTUPB IV SCH ×3 (05:50→18:10)
[2017-04-25 07:56] LABS: ABSOLUTE EOSINOPHILS # (AUTO) 0.3 10^3/uL (0.0-0.6); ABSOLUTE LYMPHOCYTES (AUTO) 1.9 10^3/uL (0.5-4.7); ABSOLUTE MONOCYTES (AUTO) 0.6 10^3/uL (0.1-1.4); ABSOLUTE NEUT (AUTO) 4.5 10^3/uL (1.7-8.2); BASOPHILS % (AUTO) 0.6 % (0-2); EOSINOPHILS % (AUTO) 3.4 % (0-6); HEMATOCRIT 27.8 % (36.0-47.0); HEMOGLOBIN 8.8 g/dL (12.0-15.5); LYMPHOCYTES % (AUTO) 26.6 % (13-45); MEAN CORPUSCULAR HEMOGLOBIN 25.6 pg (27.0-33.4); MEAN CORPUSCULAR HGB CONC 31.6 g/dL (32.0-36.0); MEAN CORPUSCULAR VOLUME 81 fl (80-97); MONOCYTES % (AUTO) 7.9 % (3-13); PLATELET COUNT 302 10^3/uL (150-450); RED BLOOD COUNT 3.44 10^6/uL (3.72-5.28); RED CELL DISTRIBUTION WIDTH 16.4 % (11.5-14.0); SEGMENTED NEUTROPHILS % (AUTO) 61.5 % (42-78); TOTAL CELLS COUNTED % (AUTO) 100 %; WHITE BLOOD COUNT 7.3 10^3/uL (4.0-10.5)
[2017-04-25 08:13] LABS: ALANINE AMINOTRANSFERASE 32 U/L (9-52); ALBUMIN 3.8 g/dL (3.5-5.0); ALKALINE PHOSPHATASE 73 U/L (38-126); ASPARTATE AMINO TRANSFERASE 22 U/L (14-36); BILIRUBIN,DIRECT 0.2 mg/dL (0.0-0.4); BILIRUBIN,TOTAL 0.2 mg/dL (0.2-1.3); BLOOD UREA NITROGEN 26 mg/dL (7-20); CALCIUM 8.4 mg/dL (8.4-10.2); CHLORIDE 86 mmol/L (98-107); GLUCOSE 105 mg/dL (75-110); POTASSIUM 3.9 mmol/L (3.6-5.0); SODIUM 138.2 mmol/L (137-145); TOTAL PROTEIN 7.5 g/dL (6.3-8.2)
[2017-04-25 08:28] LABS: ANION GAP 9 (5-19)
[2017-04-25 08:29] LABS: CARBON DIOXIDE 43 mmol/L (22-30)
[2017-04-25] MEDS: GLIPIZIDE 5 MG TABLET PO SCH (10:31)
[2017-04-25] MEDS: SERTRALINE HCL 50 MG TABLET PO SCH (10:31)
[2017-04-25] MEDS: ENOXAPARIN SODIUM INJ 40 MG/0.4 ML DISP.SYRIN SUBCUT SCH (10:32)
[2017-04-25] MEDS: MULTIVITAMIN TABLET PO SCH (10:32)
[2017-04-25] MEDS: AMLODIPINE BESYLATE 5 MG TABLET PO SCH (10:32)
[2017-04-25] MEDS: CEFTRIAXONE SODIUM 1,000 MG in DEXTROSE 5%-WATER 50 ML IV SCH (10:33)
[2017-04-25] MEDS: NYSTATIN TOPICAL POWDER 15 GM TP SCH ×2 (10:34→18:10)
--- NOTE | 2017-04-25 14:31 | PDOC PROGRESS REPORT ---
Subjective Progress Note for:: 04/25/17 Reason For Visit: CELLULITIS OF RIGHT LOWER LEG HYPERKALEMIA ANEMIA Patient has no complaints Physical Exam Vital Signs: Temp Pulse Resp BP Pulse Ox 98.6 F 79 17 137/64 H 97 04/24/17 07:46 04/25/17 07:00 04/24/17 20:47 04/24/17 07:46 04/25/17 08:26 Intake & Output 04/24/17 04/25/17 04/26/17 06:59 06:59 06:59 Intake Total 2821 1047 Output Total 1500 400 Balance 1321 647 Weight 181.4 kg 180.6 kg Extremities exam: PRESENT: other - Right leg examined. Operative wound healing 75% of length; several open areas with some fibrinous debris. There is moderate to severe edema and cellulitis. No active pus. There are several residual black nonabsorbable sutures present Results Laboratory Results: 04/25/17 07:33 04/25/17 07:33 04/25/17 04/25/17 07:33 07:33 WBC 7.3 RBC 3.44 L Hgb 8.8 L Hct 27.8 L MCV 81 MCH 25.6 L MCHC 31.6 L RDW 16.4 H Plt Count 302 Seg Neutrophils % 61.5 Lymphocytes % 26.6 Monocytes % 7.9 Eosinophils % 3.4 Basophils % 0.6 Absolute Neutrophils 4.5 Absolute Lymphocytes 1.9 Absolute Monocytes 0.6 Absolute Eosinophils 0.3 Absolute Basophils 0.0 Sodium 138.2 Potassium 3.9 Chloride 86 L Carbon Dioxide 43 H* Anion Gap 9 BUN 26 H Creatinine 1.31 H Est GFR ( Amer) 48 L Est GFR (Non-Af Amer) 40 L Glucose 105 Calcium 8.4 Total Bilirubin 0.2 AST 22 ALT 32 Alkaline Phosphatase 73 Total Protein 7.5 Albumin 3.8 04/19/17 22:03 Blood Blood Culture - Final NO GROWTH IN 5 DAYS 04/19/17 19:05 Blood Blood Culture - Final NO GROWTH IN 5 DAYS 04/20/17 04/20/17 04/20/17 15:55 15:55 21:55 Creatine Kinase 73 78 CK-MB (CK-2) 2.14 Troponin I < 0.012 NT-Pro-B Natriuret Pep 3470 H 04/20/17 04/21/17 04/21/17 21:55 04:07 04:07 Creatine Kinase 66 CK-MB (CK-2) 1.88 1.32 Troponin I < 0.012 < 0.012 NT-Pro-B Natriuret Pep Impressions: Chest X-Ray 04/20/17 00:00 IMPRESSION: Minimal right basilar airspace disease atelectasis versus pneumonia. Question trace right pleural effusion Renal Ultrasound 04/20/17 00:00 IMPRESSION: No hydronephrosis. Limited study Assessment & Plan - Diagnosis (1) Cellulitis of right lower leg Is this a current diagnosis for this admission?: Yes Plan: Clinically improved Commendations: 1. Will return to remove residual sutures which are buried. 2. Continue local wound care and elevation 3. No clinical indication for surgical debridement at this time.
[2017-04-25 16:16] LABS: ARTERIAL BLOOD BASE EXCESS 14.9 mmol/L; ARTERIAL BLOOD HCO3 42.8 mmol/L (20-26); ARTERIAL BLOOD O2 SATURATION 93.1 % (94-98); ARTERIAL BLOOD PH 7.37 (7.35-7.45); ARTERIAL BLOOD PO2 71.7 mmHg (80-100); ARTERIAL BLOOD TOTAL CO2 45.2 mmol/L (21-25)
[2017-04-25 16:17] LABS: ARTERIAL BLOOD FIO2 2L
[2017-04-25 16:19] LABS: ARTERIAL BLOOD PCO2 76.5 mmHg (35-45)
[2017-04-25] MEDS: BISACODYL 5 MG TABEC PO SCH (17:58)
[2017-04-25] MEDS: NORMAL SALINE 250 ML with FUROSEMIDE 250 MG IV PRN ×2 (18:01)
[2017-04-25] MEDS: PHARMACY COMMUNICATION ORDER MC SCH (18:11)
[2017-04-25] MEDS: ATORVASTATIN CALCIUM 10 MG TABLET PO SCH (21:05)
--- NOTE | 2017-04-25 21:40 | PDOC PROGRESS REPORT ---
Subjective Progress Note for:: 04/25/17 Subjective:: Patient was seen by the bedside, she complained of constipation, she is still on furosemide infusion, she has anemia of chronic disease, she was given a dose of Procrit Reason For Visit: CELLULITIS OF RIGHT LOWER LEG HYPERKALEMIA ANEMIA Physical Exam Vital Signs: Temp Pulse Resp BP Pulse Ox 97.7 F 77 16 148/77 H 98 04/25/17 19:54 04/25/17 19:54 04/25/17 19:54 04/25/17 19:54 04/25/17 19:54 Intake & Output 04/24/17 04/25/17 04/26/17 06:59 06:59 06:59 Intake Total 2821 1047 560 Output Total 1500 400 600 Balance 1321 647 -40 Weight 181.4 kg 180.6 kg General appearance: PRESENT: morbidly obese Head exam: PRESENT: atraumatic, normocephalic Eye exam: ABSENT: scleral icterus Ear exam: PRESENT: normal external ear exam Mouth exam: PRESENT: moist, tongue midline Neck exam: PRESENT: full ROM Respiratory exam: PRESENT: clear to auscultation kurt Cardiovascular exam: PRESENT: RRR, +S1, +S2 Pulses: PRESENT: normal dorsalis pedis pul, +2 pedal pulses bilateral Vascular exam: PRESENT: normal capillary refill GI/Abdominal exam: PRESENT: normal bowel sounds, soft Rectal exam: PRESENT: deferred Neurological exam: PRESENT: alert, awake, oriented to person, oriented to place , oriented to time, oriented to situation, CN II-XII grossly intact Psychiatric exam: PRESENT: appropriate affect, normal mood Skin exam: PRESENT: dry, intact, warm Results Laboratory Results: 04/25/17 07:33 04/25/17 07:33 04/25/17 04/25/17 04/25/17 07:33 07:33 15:45 WBC 7.3 RBC 3.44 L Hgb 8.8 L Hct 27.8 L MCV 81 MCH 25.6 L MCHC 31.6 L RDW 16.4 H Plt Count 302 Seg Neutrophils % 61.5 Lymphocytes % 26.6 Monocytes % 7.9 Eosinophils % 3.4 Basophils % 0.6 Absolute Neutrophils 4.5 Absolute Lymphocytes 1.9 Absolute Monocytes 0.6 Absolute Eosinophils 0.3 Absolute Basophils 0.0 Carbonic Acid 2.30 H HCO3/H2CO3 Ratio 18:1 ABG pH 7.37 ABG pCO2 76.5 H* ABG pO2 71.7 L ABG HCO3 42.8 H ABG O2 Saturation 93.1 L ABG Base Excess 14.9 FiO2 2L Sodium 138.2 Potassium 3.9 Chloride 86 L Carbon Dioxide 43 H* Anion Gap 9 BUN 26 H Creatinine 1.31 H Est GFR ( Amer) 48 L Est GFR (Non-Af Amer) 40 L Glucose 105 Calcium 8.4 Total Bilirubin 0.2 AST 22 ALT 32 Alkaline Phosphatase 73 Total Protein 7.5 Albumin 3.8 04/19/17 22:03 Blood Blood Culture - Final NO GROWTH IN 5 DAYS 04/19/17 19:05 Blood Blood Culture - Final NO GROWTH IN 5 DAYS 04/20/17 04/20/17 04/20/17 15:55 15:55 21:55 Creatine Kinase 73 78 CK-MB (CK-2) 2.14 Troponin I < 0.012 NT-Pro-B Natriuret Pep 3470 H 04/20/17 04/21/17 04/21/17 21:55 04:07 04:07 Creatine Kinase 66 CK-MB (CK-2) 1.88 1.32 Troponin I < 0.012 < 0.012 NT-Pro-B Natriuret Pep Impressions: Chest X-Ray 04/20/17 00:00 IMPRESSION: Minimal right basilar airspace disease atelectasis versus pneumonia. Question trace right pleural effusion Renal Ultrasound 04/20/17 00:00 IMPRESSION: No hydronephrosis. Limited study Assessment & Plan - Diagnosis (1) Acute diastolic (congestive) heart failure Is this a current diagnosis for this admission?: Yes (2) Chronic venous hypertension (idiopathic) with ulcer and inflammation of bilateral lower extremity Is this a current diagnosis for this admission?: Yes (3) Pulmonary hypertension Is this a current diagnosis for this admission?: Yes (4) Cellulitis of right lower leg Is this a current diagnosis for this admission?: Yes (5) Hyperkalemia Is this a current diagnosis for this admission?: Yes (6) Anemia Qualifiers: Anemia type: unspecified type Qualified Code(s): D64.9 - Anemia, unspecified Is this a current diagnosis for this admission?: Yes (7) Chronic kidney disease, stage 3 (moderate) Is this a current diagnosis for this admission?: Yes (8) Iron deficiency Is this a current diagnosis for this admission?: Yes (9) Anemia in chronic kidney disease Qualifiers: Chronic kidney disease stage: stage 3 (moderate) Qualified Code(s): N18.3 - Chronic kidney disease, stage 3 (moderate); D63.1 - Anemia in chronic kidney disease; D63.1 - Anemia in chronic kidney disease Is this a current diagnosis for this admission?: Yes Plan: Procrit 4000 units subcu given
[2017-04-25] MEDS ORDERED: EPOETIN ALFA INJ 40000 UNIT/1 ML (RENAL) SUBCUT ONE (23:00)
[2017-04-26] MEDS: CLINDAMYCIN 600 MG/D5W RTU 600 MG/50 ML RTUPB IV SCH ×4 (00:17→18:03)
[2017-04-26] MEDS: LANSOPRAZOLE 30 MG TAB.RAP.DR PO SCH (05:30)
[2017-04-26] MEDS: GABAPENTIN 400 MG CAPSULE PO SCH ×3 (05:30→22:26)
[2017-04-26] MEDS: SILVER SULFADIAZINE 1% CREAM 400 GM TP SCH (07:57)
[2017-04-26 08:29] LABS: ALANINE AMINOTRANSFERASE 32 U/L (9-52); ALBUMIN 4.1 g/dL (3.5-5.0); ALKALINE PHOSPHATASE 79 U/L (38-126); ASPARTATE AMINO TRANSFERASE 27 U/L (14-36); BILIRUBIN,DIRECT 0.2 mg/dL (0.0-0.4); BILIRUBIN,TOTAL 0.2 mg/dL (0.2-1.3); BLOOD UREA NITROGEN 28 mg/dL (7-20); CALCIUM 8.8 mg/dL (8.4-10.2); CHLORIDE 87 mmol/L (98-107); GLUCOSE 109 mg/dL (75-110); SODIUM 139.1 mmol/L (137-145)
[2017-04-26 08:35] LABS: ANION GAP 12 (5-19)
[2017-04-26 08:43] LABS: CARBON DIOXIDE 40 mmol/L (22-30)
[2017-04-26 09:10] LABS: ABSOLUTE BASOPHILS # (AUTO) 0.1 10^3/uL (0.0-0.2); ABSOLUTE EOSINOPHILS # (AUTO) 0.2 10^3/uL (0.0-0.6); ABSOLUTE LYMPHOCYTES (AUTO) 1.4 10^3/uL (0.5-4.7); ABSOLUTE MONOCYTES (AUTO) 0.5 10^3/uL (0.1-1.4); ABSOLUTE NEUT (AUTO) 4.6 10^3/uL (1.7-8.2); BASOPHILS % (AUTO) 1.1 % (0-2); EOSINOPHILS % (AUTO) 2.6 % (0-6); HEMATOCRIT 29.5 % (36.0-47.0); HEMOGLOBIN 9.2 g/dL (12.0-15.5); LYMPHOCYTES % (AUTO) 20.1 % (13-45); MEAN CORPUSCULAR HEMOGLOBIN 25.3 pg (27.0-33.4); MEAN CORPUSCULAR HGB CONC 31.2 g/dL (32.0-36.0); MEAN CORPUSCULAR VOLUME 81 fl (80-97); MONOCYTES % (AUTO) 7.9 % (3-13); PLATELET COUNT 301 10^3/uL (150-450); RED BLOOD COUNT 3.64 10^6/uL (3.72-5.28); RED CELL DISTRIBUTION WIDTH 16.8 % (11.5-14.0); SEGMENTED NEUTROPHILS % (AUTO) 68.3 % (42-78); TOTAL CELLS COUNTED % (AUTO) 100 %; WHITE BLOOD COUNT 6.7 10^3/uL (4.0-10.5)
[2017-04-26] MEDS: CEFTRIAXONE SODIUM 1,000 MG in DEXTROSE 5%-WATER 50 ML IV SCH (09:45)
[2017-04-26] MEDS: ENOXAPARIN SODIUM INJ 40 MG/0.4 ML DISP.SYRIN SUBCUT SCH (09:45)
[2017-04-26] MEDS: MULTIVITAMIN TABLET PO SCH (09:48)
[2017-04-26] MEDS: GLIPIZIDE 5 MG TABLET PO SCH (09:48)
[2017-04-26] MEDS: SERTRALINE HCL 50 MG TABLET PO SCH (09:48)
[2017-04-26] MEDS: NYSTATIN TOPICAL POWDER 15 GM TP SCH ×2 (09:48→18:03)
[2017-04-26] MEDS: AMLODIPINE BESYLATE 5 MG TABLET PO SCH (09:49)
[2017-04-26] MEDS ORDERED: BISACODYL 5 MG TABEC PO SCH (10:00)
[2017-04-26] MEDS: BISACODYL 5 MG TABEC PO SCH (18:01)
[2017-04-26] MEDS: NORMAL SALINE 250 ML with FUROSEMIDE 250 MG IV PRN ×2 (18:04)
[2017-04-26] MEDS: PHARMACY COMMUNICATION ORDER MC SCH (18:10)
[2017-04-26] MEDS ORDERED: IPRATROPIUM/ALBUTEROL 0.5-2.5 MG/3 ML AMPUL NEB PRN (18:30)
[2017-04-26] MEDS: IPRATROPIUM/ALBUTEROL 0.5-2.5 MG/3 ML AMPUL NEB SCH (19:45)
[2017-04-26] MEDS: OXYCODONE-ACETAMINOPHEN 5-325 MG TABLET PO PRN (20:16)
[2017-04-26] MEDS: OXYCODONE HCL IR 5 MG TABLET PO PRN (20:17)
--- NOTE | 2017-04-26 20:39 | PDOC PROGRESS REPORT ---
Subjective Progress Note for:: 04/26/17 Subjective:: Patient was seen by the bedside, she still on continuous intravenous furosemide infusion, she was seen by the surgeon regarding the ulcer on the lower extremities Reason For Visit: CELLULITIS OF RIGHT LOWER LEG HYPERKALEMIA ANEMIA Physical Exam Vital Signs: Temp Pulse Resp BP Pulse Ox 98.2 F 77 12 150/65 H 98 04/26/17 20:08 04/26/17 20:08 04/26/17 20:08 04/26/17 20:08 04/26/17 20:08 Intake & Output 04/25/17 04/26/17 04/27/17 06:59 06:59 06:59 Intake Total 1047 722 825 Output Total 400 600 Balance 647 122 825 Weight 180.6 kg General appearance: PRESENT: mild distress Eye exam: PRESENT: PERRLA Respiratory exam: PRESENT: clear to auscultation kurt Cardiovascular exam: PRESENT: +S1, +S2 GI/Abdominal exam: PRESENT: soft Neurological exam: PRESENT: alert Results Laboratory Results: 04/26/17 08:57 04/26/17 07:45 04/26/17 04/26/17 04/26/17 07:45 07:45 08:57 WBC Cancelled 6.7 RBC Cancelled 3.64 L Hgb Cancelled 9.2 L Hct Cancelled 29.5 L MCV Cancelled 81 MCH Cancelled 25.3 L MCHC Cancelled 31.2 L RDW Cancelled 16.8 H Plt Count Cancelled 301 Seg Neutrophils % Cancelled 68.3 Lymphocytes % Cancelled 20.1 Monocytes % Cancelled 7.9 Eosinophils % Cancelled 2.6 Basophils % Cancelled 1.1 Absolute Neutrophils Cancelled 4.6 Absolute Lymphocytes Cancelled 1.4 Absolute Monocytes Cancelled 0.5 Absolute Eosinophils Cancelled 0.2 Absolute Basophils Cancelled 0.1 Sodium 139.1 Potassium 4.0 Chloride 87 L Carbon Dioxide 40 H* Anion Gap 12 BUN 28 H Creatinine 1.16 Est GFR ( Amer) 56 L Est GFR (Non-Af Amer) 46 L Glucose 109 Calcium 8.8 Total Bilirubin 0.2 AST 27 ALT 32 Alkaline Phosphatase 79 Total Protein 8.0 Albumin 4.1 04/20/17 04/20/17 04/20/17 15:55 15:55 21:55 Creatine Kinase 73 78 CK-MB (CK-2) 2.14 Troponin I < 0.012 NT-Pro-B Natriuret Pep 3470 H 04/20/17 04/21/17 04/21/17 21:55 04:07 04:07 Creatine Kinase 66 CK-MB (CK-2) 1.88 1.32 Troponin I < 0.012 < 0.012 NT-Pro-B Natriuret Pep Impressions: Chest X-Ray 04/20/17 00:00 IMPRESSION: Minimal right basilar airspace disease atelectasis versus pneumonia. Question trace right pleural effusion Renal Ultrasound 04/20/17 00:00 IMPRESSION: No hydronephrosis. Limited study Assessment & Plan - Diagnosis (1) Acute diastolic (congestive) heart failure Is this a current diagnosis for this admission?: Yes (2) Chronic venous hypertension (idiopathic) with ulcer and inflammation of bilateral lower extremity Is this a current diagnosis for this admission?: Yes (3) Pulmonary hypertension Is this a current diagnosis for this admission?: Yes (4) Cellulitis of right lower leg Is this a current diagnosis for this admission?: Yes (5) Hyperkalemia Is this a current diagnosis for this admission?: Yes (6) Anemia Qualifiers: Anemia type: unspecified type Qualified Code(s): D64.9 - Anemia, unspecified Is this a current diagnosis for this admission?: Yes (7) Chronic kidney disease, stage 3 (moderate) Is this a current diagnosis for this admission?: Yes (8) Iron deficiency Is this a current diagnosis for this admission?: Yes (9) Anemia in chronic kidney disease Qualifiers: Chronic kidney disease stage: stage 3 (moderate) Qualified Code(s): N18.3 - Chronic kidney disease, stage 3 (moderate); D63.1 - Anemia in chronic kidney disease; D63.1 - Anemia in chronic kidney disease Is this a current diagnosis for this admission?: Yes
[2017-04-26] MEDS: ATORVASTATIN CALCIUM 10 MG TABLET PO SCH (22:26)
[2017-04-27] MEDS: CLINDAMYCIN 600 MG/D5W RTU 600 MG/50 ML RTUPB IV SCH ×4 (00:12→19:01)
[2017-04-27] MEDS: IPRATROPIUM/ALBUTEROL 0.5-2.5 MG/3 ML AMPUL NEB SCH ×4 (02:05→19:34)
[2017-04-27] MEDS: OXYCODONE-ACETAMINOPHEN 5-325 MG TABLET PO PRN ×2 (03:46→14:09)
[2017-04-27] MEDS: OXYCODONE HCL IR 5 MG TABLET PO PRN ×2 (03:47→14:09)
[2017-04-27] MEDS: SILVER SULFADIAZINE 1% CREAM 400 GM TP SCH ×2 (04:42→19:02)
[2017-04-27] MEDS: LANSOPRAZOLE 30 MG TAB.RAP.DR PO SCH (05:10)
[2017-04-27] MEDS: GABAPENTIN 400 MG CAPSULE PO SCH ×3 (05:10→22:35)
[2017-04-27 08:45] LABS: ABSOLUTE EOSINOPHILS # (AUTO) 0.3 10^3/uL (0.0-0.6); ABSOLUTE LYMPHOCYTES (AUTO) 2.9 10^3/uL (0.5-4.7); ABSOLUTE MONOCYTES (AUTO) 0.6 10^3/uL (0.1-1.4); ABSOLUTE NEUT (AUTO) 3.8 10^3/uL (1.7-8.2); BASOPHILS % (AUTO) 0.6 % (0-2); EOSINOPHILS % (AUTO) 3.7 % (0-6); HEMATOCRIT 28.9 % (36.0-47.0); HEMOGLOBIN 9.1 g/dL (12.0-15.5); LYMPHOCYTES % (AUTO) 37.7 % (13-45); MEAN CORPUSCULAR HEMOGLOBIN 25.4 pg (27.0-33.4); MEAN CORPUSCULAR HGB CONC 31.5 g/dL (32.0-36.0); MEAN CORPUSCULAR VOLUME 81 fl (80-97); MONOCYTES % (AUTO) 7.9 % (3-13); PLATELET COUNT 303 10^3/uL (150-450); RED BLOOD COUNT 3.58 10^6/uL (3.72-5.28); RED CELL DISTRIBUTION WIDTH 16.6 % (11.5-14.0); SEGMENTED NEUTROPHILS % (AUTO) 50.1 % (42-78); TOTAL CELLS COUNTED % (AUTO) 100 %; WHITE BLOOD COUNT 7.6 10^3/uL (4.0-10.5)
[2017-04-27 09:01] LABS: ALANINE AMINOTRANSFERASE 26 U/L (9-52); ALBUMIN 3.8 g/dL (3.5-5.0); ALKALINE PHOSPHATASE 68 U/L (38-126); ASPARTATE AMINO TRANSFERASE 27 U/L (14-36); BILIRUBIN,DIRECT 0.3 mg/dL (0.0-0.4); BILIRUBIN,TOTAL 0.3 mg/dL (0.2-1.3); BLOOD UREA NITROGEN 30 mg/dL (7-20); CALCIUM 9.2 mg/dL (8.4-10.2); CHLORIDE 89 mmol/L (98-107); GLUCOSE 119 mg/dL (75-110); POTASSIUM 3.9 mmol/L (3.6-5.0); SODIUM 141.3 mmol/L (137-145); TOTAL PROTEIN 7.6 g/dL (6.3-8.2)
[2017-04-27 09:12] LABS: ANION GAP 10 (5-19)
[2017-04-27] MEDS: ENOXAPARIN SODIUM INJ 40 MG/0.4 ML DISP.SYRIN SUBCUT SCH (09:12)
[2017-04-27] MEDS: MULTIVITAMIN TABLET PO SCH (09:12)
[2017-04-27] MEDS: SERTRALINE HCL 50 MG TABLET PO SCH (09:12)
[2017-04-27] MEDS: AMLODIPINE BESYLATE 5 MG TABLET PO SCH (09:12)
[2017-04-27] MEDS: GLIPIZIDE 5 MG TABLET PO SCH (09:12)
[2017-04-27 09:14] LABS: CARBON DIOXIDE 42 mmol/L (22-30)
[2017-04-27] MEDS: CEFTRIAXONE SODIUM 1,000 MG in DEXTROSE 5%-WATER 50 ML IV SCH (09:19)
[2017-04-27] MEDS: NYSTATIN TOPICAL POWDER 15 GM TP SCH ×2 (09:19→19:01)
[2017-04-27] MEDS: BISACODYL 5 MG TABEC PO SCH (19:00)
[2017-04-27] MEDS: NORMAL SALINE 250 ML with FUROSEMIDE 250 MG IV PRN ×2 (19:01)
--- NOTE | 2017-04-27 20:48 | PDOC PROGRESS REPORT ---
Subjective Progress Note for:: 04/27/17 Subjective:: Patient seen by the bedside no new complaint, still on the continuous intravenous furosemide infusion Reason For Visit: CELLULITIS OF RIGHT LOWER LEG Physical Exam Vital Signs: Temp Pulse Resp BP Pulse Ox 97.5 F 76 18 138/58 H 99 04/27/17 15:17 04/27/17 19:37 04/27/17 19:37 04/27/17 15:17 04/27/17 19:37 Intake & Output 04/26/17 04/27/17 04/28/17 06:59 06:59 06:59 Intake Total 722 1389 1024 Output Total 600 Balance 122 1389 1024 Weight 182.1 kg General appearance: PRESENT: no acute distress Eye exam: PRESENT: PERRLA Respiratory exam: PRESENT: rales Cardiovascular exam: PRESENT: +S1, +S2 GI/Abdominal exam: PRESENT: soft Results Laboratory Results: 04/27/17 08:20 04/27/17 08:20 04/27/17 04/27/17 08:20 08:20 WBC 7.6 RBC 3.58 L Hgb 9.1 L Hct 28.9 L MCV 81 MCH 25.4 L MCHC 31.5 L RDW 16.6 H Plt Count 303 Seg Neutrophils % 50.1 Lymphocytes % 37.7 Monocytes % 7.9 Eosinophils % 3.7 Basophils % 0.6 Absolute Neutrophils 3.8 Absolute Lymphocytes 2.9 Absolute Monocytes 0.6 Absolute Eosinophils 0.3 Absolute Basophils 0.0 Sodium 141.3 Potassium 3.9 Chloride 89 L Carbon Dioxide 42 H* Anion Gap 10 BUN 30 H Creatinine 1.23 Est GFR ( Amer) 52 L Est GFR (Non-Af Amer) 43 L Glucose 119 H Calcium 9.2 Total Bilirubin 0.3 AST 27 ALT 26 Alkaline Phosphatase 68 Total Protein 7.6 Albumin 3.8 04/20/17 04/20/17 04/20/17 15:55 15:55 21:55 Creatine Kinase 73 78 CK-MB (CK-2) 2.14 Troponin I < 0.012 NT-Pro-B Natriuret Pep 3470 H 04/20/17 04/21/17 04/21/17 21:55 04:07 04:07 Creatine Kinase 66 CK-MB (CK-2) 1.88 1.32 Troponin I < 0.012 < 0.012 NT-Pro-B Natriuret Pep Impressions: Chest X-Ray 04/20/17 00:00 IMPRESSION: Minimal right basilar airspace disease atelectasis versus pneumonia. Question trace right pleural effusion Renal Ultrasound 04/20/17 00:00 IMPRESSION: No hydronephrosis. Limited study Assessment & Plan - Diagnosis (1) Acute diastolic (congestive) heart failure Is this a current diagnosis for this admission?: Yes (2) Chronic venous hypertension (idiopathic) with ulcer and inflammation of bilateral lower extremity Is this a current diagnosis for this admission?: Yes (3) Pulmonary hypertension Is this a current diagnosis for this admission?: Yes (4) Cellulitis of right lower leg Is this a current diagnosis for this admission?: Yes (5) Hyperkalemia Is this a current diagnosis for this admission?: Yes (6) Anemia Qualifiers: Anemia type: unspecified type Qualified Code(s): D64.9 - Anemia, unspecified Is this a current diagnosis for this admission?: Yes (7) Chronic kidney disease, stage 3 (moderate) Is this a current diagnosis for this admission?: Yes (8) Iron deficiency Is this a current diagnosis for this admission?: Yes (9) Anemia in chronic kidney disease Qualifiers: Chronic kidney disease stage: stage 3 (moderate) Qualified Code(s): N18.3 - Chronic kidney disease, stage 3 (moderate); D63.1 - Anemia in chronic kidney disease; D63.1 - Anemia in chronic kidney disease Is this a current diagnosis for this admission?: Yes
[2017-04-27] MEDS: PHARMACY COMMUNICATION ORDER MC SCH (22:32)
[2017-04-27] MEDS: ATORVASTATIN CALCIUM 10 MG TABLET PO SCH (22:35)
[2017-04-28] MEDS: CLINDAMYCIN 600 MG/D5W RTU 600 MG/50 ML RTUPB IV SCH ×4 (01:37→18:24)
[2017-04-28] MEDS: IPRATROPIUM/ALBUTEROL 0.5-2.5 MG/3 ML AMPUL NEB SCH ×4 (01:53→19:50)
[2017-04-28] MEDS: OXYCODONE-ACETAMINOPHEN 5-325 MG TABLET PO PRN ×3 (03:58→20:57)
[2017-04-28] MEDS: OXYCODONE HCL IR 5 MG TABLET PO PRN ×2 (03:58→13:04)
[2017-04-28] MEDS: SILVER SULFADIAZINE 1% CREAM 400 GM TP SCH ×2 (05:10→17:17)
[2017-04-28] MEDS: LANSOPRAZOLE 30 MG TAB.RAP.DR PO SCH (05:10)
[2017-04-28] MEDS: GABAPENTIN 400 MG CAPSULE PO SCH ×3 (05:10→20:56)
[2017-04-28 09:29] LABS: ABSOLUTE EOSINOPHILS # (AUTO) 0.3 10^3/uL (0.0-0.6); ABSOLUTE LYMPHOCYTES (AUTO) 1.9 10^3/uL (0.5-4.7); ABSOLUTE MONOCYTES (AUTO) 0.4 10^3/uL (0.1-1.4); ABSOLUTE NEUT (AUTO) 3.7 10^3/uL (1.7-8.2); BASOPHILS % (AUTO) 0.7 % (0-2); EOSINOPHILS % (AUTO) 4.6 % (0-6); HEMATOCRIT 28.5 % (36.0-47.0); LYMPHOCYTES % (AUTO) 30.2 % (13-45); MEAN CORPUSCULAR HEMOGLOBIN 25.6 pg (27.0-33.4); MEAN CORPUSCULAR HGB CONC 31.6 g/dL (32.0-36.0); MEAN CORPUSCULAR VOLUME 81 fl (80-97); MONOCYTES % (AUTO) 6.1 % (3-13); PLATELET COUNT 276 10^3/uL (150-450); RED BLOOD COUNT 3.53 10^6/uL (3.72-5.28); RED CELL DISTRIBUTION WIDTH 16.8 % (11.5-14.0); SEGMENTED NEUTROPHILS % (AUTO) 58.4 % (42-78); TOTAL CELLS COUNTED % (AUTO) 100 %; WHITE BLOOD COUNT 6.4 10^3/uL (4.0-10.5)
[2017-04-28 09:49] LABS: ALANINE AMINOTRANSFERASE 33 U/L (9-52); ALBUMIN 3.9 g/dL (3.5-5.0); ALKALINE PHOSPHATASE 64 U/L (38-126); ASPARTATE AMINO TRANSFERASE 28 U/L (14-36); BILIRUBIN,DIRECT 0.2 mg/dL (0.0-0.4); BILIRUBIN,TOTAL 0.2 mg/dL (0.2-1.3); BLOOD UREA NITROGEN 29 mg/dL (7-20); CALCIUM 9.2 mg/dL (8.4-10.2); CHLORIDE 90 mmol/L (98-107); GLUCOSE 136 mg/dL (75-110); POTASSIUM 4.1 mmol/L (3.6-5.0); SODIUM 142.1 mmol/L (137-145); TOTAL PROTEIN 7.6 g/dL (6.3-8.2)
[2017-04-28 09:55] LABS: ANION GAP 15 (5-19); CARBON DIOXIDE 37 mmol/L (22-30)
[2017-04-28] MEDS: ENOXAPARIN SODIUM INJ 40 MG/0.4 ML DISP.SYRIN SUBCUT SCH (11:03)
[2017-04-28] MEDS: GLIPIZIDE 5 MG TABLET PO SCH (11:03)
[2017-04-28] MEDS: SERTRALINE HCL 50 MG TABLET PO SCH (11:03)
[2017-04-28] MEDS: MULTIVITAMIN TABLET PO SCH (11:03)
[2017-04-28] MEDS: NYSTATIN TOPICAL POWDER 15 GM TP SCH ×2 (11:04→17:16)
[2017-04-28] MEDS: CEFTRIAXONE SODIUM 1,000 MG in DEXTROSE 5%-WATER 50 ML IV SCH (11:04)
[2017-04-28] MEDS: AMLODIPINE BESYLATE 5 MG TABLET PO SCH (11:08)
[2017-04-28] MEDS: BISACODYL 5 MG TABEC PO SCH (17:16)
[2017-04-28] MEDS: NORMAL SALINE 250 ML with FUROSEMIDE 250 MG IV PRN ×2 (17:17)
[2017-04-28] MEDS: PHARMACY COMMUNICATION ORDER MC SCH (17:19)
[2017-04-28] MEDS: TRAMADOL HCL 50 MG TABLET PO PRN (18:23)
[2017-04-28] MEDS: ATORVASTATIN CALCIUM 10 MG TABLET PO SCH (20:56)
--- NOTE | 2017-04-28 22:28 | PDOC PROGRESS REPORT ---
Subjective Progress Note for:: 04/28/17 Subjective:: Patient's condition is about the same Reason For Visit: CELLULITIS OF RIGHT LOWER LEG Physical Exam Vital Signs: Temp Pulse Resp BP Pulse Ox 98.3 F 81 20 123/52 L 93 04/28/17 16:00 04/28/17 19:50 04/28/17 19:50 04/28/17 16:00 04/28/17 19:50 Intake & Output 04/27/17 04/28/17 04/29/17 06:59 06:59 06:59 Intake Total 1389 1428 1470 Output Total 100 500 Balance 1389 1328 970 Weight 182.1 kg 181.7 kg General appearance: PRESENT: morbidly obese Eye exam: PRESENT: conjunctiva pink, EOMI, PERRLA Ear exam: PRESENT: normal external ear exam Neck exam: PRESENT: full ROM Respiratory exam: PRESENT: clear to auscultation kurt Cardiovascular exam: PRESENT: RRR, +S1, +S2 Vascular exam: PRESENT: normal capillary refill GI/Abdominal exam: PRESENT: normal bowel sounds, soft Rectal exam: PRESENT: deferred Neurological exam: PRESENT: alert. ABSENT: motor sensory deficit Psychiatric exam: PRESENT: appropriate affect, normal mood Skin exam: PRESENT: dry, intact, warm Results Laboratory Results: 04/28/17 08:46 04/28/17 08:46 04/28/17 04/28/17 08:46 08:46 WBC 6.4 RBC 3.53 L Hgb 9.0 L Hct 28.5 L MCV 81 MCH 25.6 L MCHC 31.6 L RDW 16.8 H Plt Count 276 Seg Neutrophils % 58.4 Lymphocytes % 30.2 Monocytes % 6.1 Eosinophils % 4.6 Basophils % 0.7 Absolute Neutrophils 3.7 Absolute Lymphocytes 1.9 Absolute Monocytes 0.4 Absolute Eosinophils 0.3 Absolute Basophils 0.0 Sodium 142.1 Potassium 4.1 Chloride 90 L Carbon Dioxide 37 H Anion Gap 15 BUN 29 H Creatinine 1.18 Est GFR ( Amer) 55 L Est GFR (Non-Af Amer) 45 L Glucose 136 H Calcium 9.2 Total Bilirubin 0.2 AST 28 ALT 33 Alkaline Phosphatase 64 Total Protein 7.6 Albumin 3.9 04/20/17 04/20/17 04/20/17 15:55 15:55 21:55 Creatine Kinase 73 78 CK-MB (CK-2) 2.14 Troponin I < 0.012 NT-Pro-B Natriuret Pep 3470 H 04/20/17 04/21/17 04/21/17 21:55 04:07 04:07 Creatine Kinase 66 CK-MB (CK-2) 1.88 1.32 Troponin I < 0.012 < 0.012 NT-Pro-B Natriuret Pep Impressions: Chest X-Ray 04/20/17 00:00 IMPRESSION: Minimal right basilar airspace disease atelectasis versus pneumonia. Question trace right pleural effusion Renal Ultrasound 04/20/17 00:00 IMPRESSION: No hydronephrosis. Limited study Assessment & Plan - Diagnosis (1) Acute diastolic (congestive) heart failure Is this a current diagnosis for this admission?: Yes (2) Chronic venous hypertension (idiopathic) with ulcer and inflammation of bilateral lower extremity Is this a current diagnosis for this admission?: Yes (3) Pulmonary hypertension Is this a current diagnosis for this admission?: Yes (4) Cellulitis of right lower leg Is this a current diagnosis for this admission?: Yes (5) Hyperkalemia Is this a current diagnosis for this admission?: Yes (6) Anemia Qualifiers: Anemia type: unspecified type Qualified Code(s): D64.9 - Anemia, unspecified Is this a current diagnosis for this admission?: Yes (7) Chronic kidney disease, stage 3 (moderate) Is this a current diagnosis for this admission?: Yes (8) Iron deficiency Is this a current diagnosis for this admission?: Yes (9) Anemia in chronic kidney disease Qualifiers: Chronic kidney disease stage: stage 3 (moderate) Qualified Code(s): N18.3 - Chronic kidney disease, stage 3 (moderate); D63.1 - Anemia in chronic kidney disease; D63.1 - Anemia in chronic kidney disease Is this a current diagnosis for this admission?: Yes - Plan Summary Plan Summary: Continue treatment
[2017-04-29] MEDS: CLINDAMYCIN 600 MG/D5W RTU 600 MG/50 ML RTUPB IV SCH ×5 (01:48→23:12)
[2017-04-29] MEDS: IPRATROPIUM/ALBUTEROL 0.5-2.5 MG/3 ML AMPUL NEB SCH ×4 (01:50→20:27)
[2017-04-29] MEDS: GABAPENTIN 400 MG CAPSULE PO SCH ×3 (05:04→22:10)
[2017-04-29] MEDS: SILVER SULFADIAZINE 1% CREAM 400 GM TP SCH ×2 (05:05→14:16)
[2017-04-29] MEDS: LANSOPRAZOLE 30 MG TAB.RAP.DR PO SCH (05:05)
[2017-04-29] MEDS: OXYCODONE-ACETAMINOPHEN 5-325 MG TABLET PO PRN ×2 (05:34→22:14)
[2017-04-29 06:56] LABS: ABSOLUTE EOSINOPHILS # (AUTO) 0.3 10^3/uL (0.0-0.6); ABSOLUTE LYMPHOCYTES (AUTO) 2.3 10^3/uL (0.5-4.7); ABSOLUTE MONOCYTES (AUTO) 0.5 10^3/uL (0.1-1.4); ABSOLUTE NEUT (AUTO) 3.2 10^3/uL (1.7-8.2); BASOPHILS % (AUTO) 0.7 % (0-2); EOSINOPHILS % (AUTO) 4.6 % (0-6); HEMATOCRIT 28.3 % (36.0-47.0); LYMPHOCYTES % (AUTO) 36.3 % (13-45); MEAN CORPUSCULAR HEMOGLOBIN 25.8 pg (27.0-33.4); MEAN CORPUSCULAR HGB CONC 31.7 g/dL (32.0-36.0); MEAN CORPUSCULAR VOLUME 81 fl (80-97); MONOCYTES % (AUTO) 7.7 % (3-13); PLATELET COUNT 293 10^3/uL (150-450); RED BLOOD COUNT 3.48 10^6/uL (3.72-5.28); RED CELL DISTRIBUTION WIDTH 16.9 % (11.5-14.0); SEGMENTED NEUTROPHILS % (AUTO) 50.7 % (42-78); TOTAL CELLS COUNTED % (AUTO) 100 %; WHITE BLOOD COUNT 6.4 10^3/uL (4.0-10.5)
[2017-04-29 07:22] LABS: ALANINE AMINOTRANSFERASE 30 U/L (9-52); ALBUMIN 3.6 g/dL (3.5-5.0); ALKALINE PHOSPHATASE 67 U/L (38-126); ASPARTATE AMINO TRANSFERASE 25 U/L (14-36); BILIRUBIN,DIRECT 0.2 mg/dL (0.0-0.4); BILIRUBIN,TOTAL 0.3 mg/dL (0.2-1.3); BLOOD UREA NITROGEN 28 mg/dL (7-20); CALCIUM 9.1 mg/dL (8.4-10.2); CHLORIDE 91 mmol/L (98-107); GLUCOSE 93 mg/dL (75-110); MAGNESIUM 1.9 mg/dL (1.6-2.3); SODIUM 142.7 mmol/L (137-145); TOTAL PROTEIN 7.1 g/dL (6.3-8.2)
[2017-04-29 07:37] LABS: ANION GAP 11 (5-19)
[2017-04-29 07:38] LABS: CARBON DIOXIDE 41 mmol/L (22-30)
[2017-04-29] MEDS: ENOXAPARIN SODIUM INJ 40 MG/0.4 ML DISP.SYRIN SUBCUT SCH (10:29)
[2017-04-29] MEDS: MULTIVITAMIN TABLET PO SCH (10:29)
[2017-04-29] MEDS: TRAMADOL HCL 50 MG TABLET PO PRN ×2 (10:30→20:05)
[2017-04-29] MEDS: AMLODIPINE BESYLATE 5 MG TABLET PO SCH (10:30)
[2017-04-29] MEDS: GLIPIZIDE 5 MG TABLET PO SCH (10:30)
[2017-04-29] MEDS: SERTRALINE HCL 50 MG TABLET PO SCH (10:30)
[2017-04-29] MEDS: CEFTRIAXONE SODIUM 1,000 MG in DEXTROSE 5%-WATER 50 ML IV SCH (10:31)
[2017-04-29] MEDS: NYSTATIN TOPICAL POWDER 15 GM TP SCH ×2 (10:36→17:21)
[2017-04-29] MEDS: BISACODYL 5 MG TABEC PO SCH (17:21)
[2017-04-29] MEDS: PHARMACY COMMUNICATION ORDER MC SCH (17:23)
[2017-04-29] MEDS: NORMAL SALINE 250 ML with FUROSEMIDE 250 MG IV PRN ×2 (18:24)
[2017-04-29] MEDS: ATORVASTATIN CALCIUM 10 MG TABLET PO SCH (22:10)
[2017-04-29] MEDS: OXYCODONE HCL IR 5 MG TABLET PO PRN (22:13)
--- NOTE | 2017-04-29 23:58 | PDOC PROGRESS REPORT ---
Subjective Progress Note for:: 04/29/17 Subjective:: She was seen by the bedside, admitted for the management of acute diastolic heart failure, chronic venous hypertension of lower extremities with inflammation and ulcer bilaterally, more on the left leg than the right leg Reason For Visit: CELLULITIS OF RIGHT LOWER LEG Physical Exam Vital Signs: Temp Pulse Resp BP Pulse Ox 98.5 F 75 17 138/64 H 96 04/29/17 20:00 04/29/17 20:27 04/29/17 20:27 04/29/17 20:00 04/29/17 20:27 Intake & Output 04/28/17 04/29/17 04/30/17 06:59 06:59 06:59 Intake Total 1428 1734 1266 Output Total 100 700 Balance 1328 1034 1266 Weight 181.7 kg 182.3 kg General appearance: PRESENT: morbidly obese Eye exam: PRESENT: PERRLA Respiratory exam: PRESENT: clear to auscultation kurt Cardiovascular exam: PRESENT: +S1, +S2 GI/Abdominal exam: PRESENT: soft Neurological exam: PRESENT: alert Skin exam: PRESENT: erythema, other - ulcer in the left leg Results Laboratory Results: 04/29/17 06:12 04/29/17 06:12 04/29/17 04/29/17 06:12 06:12 WBC 6.4 RBC 3.48 L Hgb 9.0 L Hct 28.3 L MCV 81 MCH 25.8 L MCHC 31.7 L RDW 16.9 H Plt Count 293 Seg Neutrophils % 50.7 Lymphocytes % 36.3 Monocytes % 7.7 Eosinophils % 4.6 Basophils % 0.7 Absolute Neutrophils 3.2 Absolute Lymphocytes 2.3 Absolute Monocytes 0.5 Absolute Eosinophils 0.3 Absolute Basophils 0.0 Sodium 142.7 Potassium 4.0 Chloride 91 L Carbon Dioxide 41 H* Anion Gap 11 BUN 28 H Creatinine 1.28 H Est GFR ( Amer) 50 L Est GFR (Non-Af Amer) 41 L Glucose 93 Calcium 9.1 Magnesium 1.9 Total Bilirubin 0.3 AST 25 ALT 30 Alkaline Phosphatase 67 Total Protein 7.1 Albumin 3.6 04/20/17 04/20/17 04/20/17 15:55 15:55 21:55 Creatine Kinase 73 78 CK-MB (CK-2) 2.14 Troponin I < 0.012 NT-Pro-B Natriuret Pep 3470 H 04/20/17 04/21/17 04/21/17 21:55 04:07 04:07 Creatine Kinase 66 CK-MB (CK-2) 1.88 1.32 Troponin I < 0.012 < 0.012 NT-Pro-B Natriuret Pep Impressions: Chest X-Ray 04/20/17 00:00 IMPRESSION: Minimal right basilar airspace disease atelectasis versus pneumonia. Question trace right pleural effusion Renal Ultrasound 04/20/17 00:00 IMPRESSION: No hydronephrosis. Limited study Assessment & Plan - Diagnosis (1) Acute diastolic (congestive) heart failure Is this a current diagnosis for this admission?: Yes (2) Chronic venous hypertension (idiopathic) with ulcer and inflammation of bilateral lower extremity Is this a current diagnosis for this admission?: Yes (3) Pulmonary hypertension Is this a current diagnosis for this admission?: Yes (4) Cellulitis of right lower leg Is this a current diagnosis for this admission?: Yes (5) Hyperkalemia Is this a current diagnosis for this admission?: Yes (6) Anemia Qualifiers: Anemia type: unspecified type Qualified Code(s): D64.9 - Anemia, unspecified Is this a current diagnosis for this admission?: Yes (7) Chronic kidney disease, stage 3 (moderate) Is this a current diagnosis for this admission?: Yes (8) Iron deficiency Is this a current diagnosis for this admission?: Yes (9) Anemia in chronic kidney disease Qualifiers: Chronic kidney disease stage: stage 3 (moderate) Qualified Code(s): N18.3 - Chronic kidney disease, stage 3 (moderate); D63.1 - Anemia in chronic kidney disease; D63.1 - Anemia in chronic kidney disease Is this a current diagnosis for this admission?: Yes
[2017-04-30] MEDS: IPRATROPIUM/ALBUTEROL 0.5-2.5 MG/3 ML AMPUL NEB SCH ×3 (02:12→13:59)
[2017-04-30] MEDS: CLINDAMYCIN 600 MG/D5W RTU 600 MG/50 ML RTUPB IV SCH ×3 (05:04→17:35)
[2017-04-30] MEDS: OXYCODONE-ACETAMINOPHEN 5-325 MG TABLET PO PRN (05:06)
[2017-04-30] MEDS: LANSOPRAZOLE 30 MG TAB.RAP.DR PO SCH (05:06)
[2017-04-30] MEDS: GABAPENTIN 400 MG CAPSULE PO SCH ×2 (05:06→15:21)
[2017-04-30] MEDS: OXYCODONE HCL IR 5 MG TABLET PO PRN ×2 (05:06→17:36)
[2017-04-30] MEDS: SILVER SULFADIAZINE 1% CREAM 400 GM TP SCH ×2 (05:07→16:23)
[2017-04-30 09:11] LABS: ABSOLUTE BASOPHILS # (AUTO) 0.1 10^3/uL (0.0-0.2); ABSOLUTE EOSINOPHILS # (AUTO) 0.3 10^3/uL (0.0-0.6); ABSOLUTE LYMPHOCYTES (AUTO) 2.5 10^3/uL (0.5-4.7); ABSOLUTE MONOCYTES (AUTO) 0.4 10^3/uL (0.1-1.4); ABSOLUTE NEUT (AUTO) 2.8 10^3/uL (1.7-8.2); BASOPHILS % (AUTO) 1.1 % (0-2); HEMATOCRIT 28.8 % (36.0-47.0); LYMPHOCYTES % (AUTO) 40.9 % (13-45); MEAN CORPUSCULAR HEMOGLOBIN 25.5 pg (27.0-33.4); MEAN CORPUSCULAR HGB CONC 31.2 g/dL (32.0-36.0); MEAN CORPUSCULAR VOLUME 82 fl (80-97); MONOCYTES % (AUTO) 6.5 % (3-13); PLATELET COUNT 288 10^3/uL (150-450); RED BLOOD COUNT 3.53 10^6/uL (3.72-5.28); SEGMENTED NEUTROPHILS % (AUTO) 46.5 % (42-78); TOTAL CELLS COUNTED % (AUTO) 100 %; WHITE BLOOD COUNT 6.1 10^3/uL (4.0-10.5)
--- NOTE | 2017-04-30 09:13 | RADIOLOGY REPORT (SQ) ---
EXAM DESCRIPTION: CHEST SINGLE VIEW COMPLETED DATE/TIME: 04/30/2017 8:42 am REASON FOR STUDY: repeat CXR COMPARISON: 04/20/2017. EXAM PARAMETERS: NUMBER OF VIEWS: 2 view. TECHNIQUE: Single frontal radiographic view of the chest acquired. RADIATION DOSE: NA LIMITATIONS: None. FINDINGS: LUNGS AND PLEURA: There is suggestion of bibasilar discoid atelectasis. Findings compatib le with right pleural thickening and thickening of the right minor fissure again noted suggesting rig ht pleural effusion. MEDIASTINUM AND HILAR STRUCTURES: No masses. Contour normal. HEART AND VASCULAR STRUCTURES: Cardiomegaly. The pulmonary vasculature is mildly prominent. BONES: No acute findings. HARDWARE: None in the chest. OTHER: No other significant finding. IMPRESSION: CARDIOMEGALY. BIBASILAR DISCOID ATELECTASIS. RIGHT PLEURAL EFFUSION. TECHNICAL DOCUMENTATION: JOB ID: [id number] [id number] 2010 [employer]- All Rights Reserved
[2017-04-30 09:30] LABS: ALANINE AMINOTRANSFERASE 30 U/L (9-52); ALBUMIN 3.8 g/dL (3.5-5.0); ALKALINE PHOSPHATASE 61 U/L (38-126); ASPARTATE AMINO TRANSFERASE 25 U/L (14-36); BILIRUBIN,DIRECT 0.3 mg/dL (0.0-0.4); BILIRUBIN,TOTAL 0.3 mg/dL (0.2-1.3); BLOOD UREA NITROGEN 28 mg/dL (7-20); CALCIUM 9.4 mg/dL (8.4-10.2); CHLORIDE 93 mmol/L (98-107); GLUCOSE 102 mg/dL (75-110); POTASSIUM 4.5 mmol/L (3.6-5.0); SODIUM 141.9 mmol/L (137-145); TOTAL PROTEIN 7.3 g/dL (6.3-8.2)
[2017-04-30 09:36] LABS: ANION GAP 10 (5-19); CARBON DIOXIDE 39 mmol/L (22-30)
[2017-04-30] MEDS: ENOXAPARIN SODIUM INJ 40 MG/0.4 ML DISP.SYRIN SUBCUT SCH (11:49)
--- NOTE | 2017-04-30 11:57 | PDOC TRANSFER SUMMARY ---
General - Admit/Disc Date/PCP Admission Date/Primary Care Provider: 04/19/17 18:25 JULIO AVALOS MD Discharge Date: 04/30/17 - Discharge Diagnosis (1) Acute diastolic (congestive) heart failure Is this a current diagnosis for this admission?: Yes (2) Chronic venous hypertension (idiopathic) with ulcer and inflammation of bilateral lower extremity Is this a current diagnosis for this admission?: Yes (3) Pulmonary hypertension Is this a current diagnosis for this admission?: Yes (4) Cellulitis of right lower leg Is this a current diagnosis for this admission?: Yes (5) Hyperkalemia Is this a current diagnosis for this admission?: Yes (6) Anemia Is this a current diagnosis for this admission?: Yes (7) Chronic kidney disease, stage 3 (moderate) Is this a current diagnosis for this admission?: Yes (8) Iron deficiency Is this a current diagnosis for this admission?: Yes (9) Anemia in chronic kidney disease Is this a current diagnosis for this admission?: Yes - Additional Information Resuscitation Status: Full Code Discharge Diet: Cardiac, Diabetic Discharge Activity: Activity As Tolerated, Balance Activity w/Rest, Weigh Daily Prescriptions: Tramadol HCl [Ultram 50 mg Tablet] 50 mg PO Q6HP PRN #120 tablet PRN Reason: For Pain Gabapentin 300 mg PO Q8H #90 ml Linagliptin [Tradjenta] 5 mg PO DAILY #90 tablet Silver Sulfadiazine [Silvadene 1% Cream 400 gm] 1 applic TP Q12@0500,1700 #1 jar Valsartan [Diovan 80 mg Tablet] 80 mg PO DAILY #30 tablet Home Medications: Amlodipine Besylate [Norvasc 5 mg Tablet] 5 mg PO DAILY 04/19/17 Atorvastatin Calcium [Lipitor 10 mg Tablet] 10 mg PO QHS 04/19/17 Ergocalciferol (Vitamin D2) [Vitamin D2] 50,000 unit PO SEGURA@1000 04/19/17 Insulin Regular, Human [Humulin R (Reg) Insulin 100 unit/mL] 0 unit SUBCUT .SLD SCALE 04/19/17 Multivit-Min/FA/Lycopen/Lutein [Certavite Sr-Antioxidant Tab] 1 tab PO DAILY 06/05 Nystatin [Mycostatin Topical Powder 15 gm] 1 applic TP BID 04/19/17 Sertraline HCl [Zoloft 50 mg Tablet] 100 mg PO DAILY 04/19/17 Gabapentin 300 mg PO Q8H #90 ml 04/30/17 Linagliptin [Tradjenta] 5 mg PO DAILY #90 tablet 04/30/17 Silver Sulfadiazine [Silvadene 1% Cream 400 gm] 1 applic TP Q12@0500,1700 #1 jar 04/30/17 Tramadol HCl [Ultram 50 mg Tablet] 50 mg PO Q6HP PRN #120 tablet 04/30/17 Valsartan [Diovan 80 mg Tablet] 80 mg PO DAILY #30 tablet 04/30/17 History of Present Illness Admission Date/PCP: 04/19/17 18:25 JULIO AVALOS MD History of Present Illness: Patient 70-year-old female with history of severe morbid obesity body mass index 70, she came to the emergency room from the [place] [facility] essentially for suture removal of the right lower leg, she apparently fell out of bed and sustained laceration of the right lower leg. The emergency room she was found to be febrile with a temperature of 99.2, there was extensive erythema of the right leg warm to touch she was also found to be hypoxemic the oxygen saturation was low in the 80s. It was felt that she needed to be admitted to the hospital because of a combination of severe cellulitis of the right lower leg and the hypoxemia. The blood work that was done in the emergency room revealed hyperkalemia, the serum creatinine was 1.47 Hospital Course Hospital Course: Patient was admitted for the management of acute diastolic heart failure, chronic venous hypertension of the lower extremities with inflammation and open ulcer on the right leg, she was treated with intravenous furosemide infusion, wound dressing and antibiotic. She was seen by the surgeon regarding the open ulcer of the right leg, it was felt that she may need debridement but conservative approach was recommended, topical cream was applied, Silvadene cream . She has anemia of chronic kidney disease, she was giving Procrit shot. She is morbidly obese, she was taken off glipizide, started on Tradjenta because of chronic kidney disease, the use of glipizide increases risk of hypoglycemia. She was treated with mild opioid, tramadol, because of the morbid obesity she is at risk of hypoventilation syndrome. Physical Exam Vital Signs: Temp Pulse Resp BP Pulse Ox 97.8 F 72 18 160/69 H 92 04/30/17 07:31 04/30/17 07:53 04/30/17 07:53 04/30/17 07:31 04/30/17 07:53 Intake & Output 04/29/17 04/30/17 05/01/17 06:59 06:59 06:59 Intake Total 1734 2166 Output Total 700 600 Balance 1034 1566 Weight 182.3 kg 182.6 kg General appearance: PRESENT: no acute distress, well-developed, well-nourished Head exam: PRESENT: atraumatic, normocephalic Eye exam: PRESENT: conjunctiva pink, EOMI, PERRLA Ear exam: PRESENT: normal external ear exam Mouth exam: PRESENT: moist, tongue midline Respiratory exam: PRESENT: clear to auscultation kurt Cardiovascular exam: PRESENT: RRR, +S1, +S2 Pulses: PRESENT: normal dorsalis pedis pul Vascular exam: PRESENT: normal capillary refill GI/Abdominal exam: PRESENT: normal bowel sounds, soft Rectal exam: PRESENT: deferred Extremities exam: PRESENT: +2 edema, other - ulcer on the right leg,large ulcer ,inflammation with peau'd orange apperance of the skin Neurological exam: PRESENT: alert, CN II-XII grossly intact Psychiatric exam: PRESENT: appropriate affect, normal mood Skin exam: PRESENT: dry, intact, warm Results Laboratory Results: 04/30/17 08:56 04/30/17 08:56 04/30/17 04/30/17 08:56 08:56 WBC 6.1 RBC 3.53 L Hgb 9.0 L Hct 28.8 L MCV 82 MCH 25.5 L MCHC 31.2 L RDW 17.0 H Plt Count 288 Seg Neutrophils % 46.5 Lymphocytes % 40.9 Monocytes % 6.5 Eosinophils % 5.0 Basophils % 1.1 Absolute Neutrophils 2.8 Absolute Lymphocytes 2.5 Absolute Monocytes 0.4 Absolute Eosinophils 0.3 Absolute Basophils 0.1 Sodium 141.9 Potassium 4.5 Chloride 93 L Carbon Dioxide 39 H Anion Gap 10 BUN 28 H Creatinine 1.29 H Est GFR ( Amer) 49 L Est GFR (Non-Af Amer) 41 L Glucose 102 Calcium 9.4 Total Bilirubin 0.3 AST 25 ALT 30 Alkaline Phosphatase 61 Total Protein 7.3 Albumin 3.8 04/20/17 04/20/17 04/20/17 15:55 15:55 21:55 Creatine Kinase 73 78 CK-MB (CK-2) 2.14 Troponin I < 0.012 NT-Pro-B Natriuret Pep 3470 H 04/20/17 04/21/17 04/21/17 21:55 04:07 04:07 Creatine Kinase 66 CK-MB (CK-2) 1.88 1.32 Troponin I < 0.012 < 0.012 NT-Pro-B Natriuret Pep Impressions: Renal Ultrasound 04/20/17 00:00 IMPRESSION: No hydronephrosis. Limited study Chest X-Ray 04/30/17 08:00 IMPRESSION: CARDIOMEGALY. BIBASILAR DISCOID ATELECTASIS. RIGHT PLEURAL EFFUSION.
[2017-04-30 12:04] VITALS: BP 138/61
[2017-04-30] MEDS: AMLODIPINE BESYLATE 5 MG TABLET PO SCH (12:07)
[2017-04-30] MEDS: SERTRALINE HCL 50 MG TABLET PO SCH (12:07)
[2017-04-30] MEDS: GLIPIZIDE 5 MG TABLET PO SCH (12:08)
[2017-04-30] MEDS: MULTIVITAMIN TABLET PO SCH (12:08)
[2017-04-30] MEDS: CEFTRIAXONE SODIUM 1,000 MG in DEXTROSE 5%-WATER 50 ML IV SCH (12:08)
[2017-04-30] MEDS: NYSTATIN TOPICAL POWDER 15 GM TP SCH ×2 (12:10→17:35)
[2017-04-30] MEDS: BISACODYL 5 MG TABEC PO SCH (17:34)
== END 2017-04-30 18:12 | DRG 291 ==
LOC: ER 14:26 → EH 18:25 → 3N 22:30
PROVIDERS: ADMIT Internal Medicine; ATTEND Internal Medicine
DX: I13.0 Hypertensive heart and chronic kidney disease with heart failure and stage 1 through stage 4 chronic kidney disease, or unspecified chronic kidney disease (principal); I50.31 Acute diastolic (congestive) heart failure; I87.333 Chronic venous hypertension (idiopathic) with ulcer and inflammation of bilateral lower extremity; L97.919 Non-pressure chronic ulcer of unspecified part of right lower leg with unspecified severity; L03.115 Cellulitis of right lower limb; Z68.45 Body mass index [BMI] 70 or greater, adult; E11.22 Type 2 diabetes mellitus with diabetic chronic kidney disease; N18.3 Chronic kidney disease, stage 3 (moderate); D63.1 Anemia in chronic kidney disease; E87.5 Hyperkalemia; D50.9 Iron deficiency anemia, unspecified; E66.01 Morbid (severe) obesity due to excess calories; R09.02 Hypoxemia; E78.5 Hyperlipidemia, unspecified; G47.30 Sleep apnea, unspecified; K21.9 Gastro-esophageal reflux disease without esophagitis; I73.9 Peripheral vascular disease, unspecified; M19.90 Unspecified osteoarthritis, unspecified site; F32.9 Major depressive disorder, single episode, unspecified; Z86.14 Personal history of Methicillin resistant Staphylococcus aureus infection; Z79.4 Long term (current) use of insulin; Z79.899 Other long term (current) drug therapy
CPT/HCPCS: 36415; 71045; 71046; 76770; 80048; 80053; 82550; 82553; 82607; 82728; 82746; 82803; 82962; 83540; 83550; 83735; 83880; 83970; 84466; 84484; 85025; 85045; 87040; 90686; 93005; 93010; 93306; 94640; 94660; 99284; J0610; J0696; J1650; J1756; J1815; J1940; J3370; J3490; J7030; J7050; J7620; Q4081

== ENCOUNTER → 2017-06-23 | Outpatient (CLI) | payer MEDICARE, OTHER ==
--- NOTE | 2017-06-24 07:47 | XCELERA REPORT ---
[address] [address] Lower Extremity Arterial Evaluation Name: SERINA LEE Age: 71 yrs Gender: Female : 1945 Patient Status: Outpatient Patient Location: Study Date: 06/23/2017 11:21 AM Procedure: A color flow and duplex scan of the lower extremity arteries was performed bilaterally with velocity and waveform anaylsis. Study could not be completed due to Bandaging in place.. Reason For Study: ULCER Ordering Physician: AYALA MCMILLAN Performed By: Bibi Ramirez Measurements and Calculations Right Left DOUBLE BACK OPERATOR PSV 154.0 183.7 cm/sec Prox PFA PSV -157.1 -105.3 cm/sec Prox SFA PSV 137.5 158.9 cm/sec Mid SFA PSV 71.2 -148.4 cm/sec Prox Pop A PSV 110.0 cm/sec Right Side Arterial Evaluation Normal velocity and triphasic waveforms noted from the Common Femoral artery to the Femoral artery. Bandaging below that level . 0 % stenosis. Ankle Brachial index not possible due to bandaging. Left Side Arterial Evaluation Normal velocity and triphasic waveforms noted from the Common Femoral artery to the Femoral artery. Biphasic at the Popliteal. Bandaging below that level . 0-19 % stenosis. At the Popliteal artery. Ankle Brachial index not possible due to bandaging. Interpretation Summary Near normal findings at rest. Study severely limited by presence of bandaging. Study may need to be re done, with bandaging off, before coming for study. : AYALA MCMILLAN > Ayala Mcmillan
== END ==
LOC: SP 10:59
PROVIDERS: ATTEND Surgery
DX: L97.222 Non-pressure chronic ulcer of left calf with fat layer exposed (principal)
CPT/HCPCS: 93925

== ENCOUNTER → 2017-07-12 | Outpatient (CLI) | payer MEDICARE, OTHER ==
--- NOTE | 2017-07-13 18:11 | XCELERA REPORT ---
[address] [address] Lower Extremity Arterial Evaluation Name: SERINA LEE Age: 71 yrs Gender: Female : 1945 Patient Status: Outpatient Patient Location: Study Date: 07/12/2017 02:50 PM Procedure: A color flow and duplex scan of the lower extremity arteries was performed bilaterally with velocity and waveform anaylsis. Reason For Study: ULCER Ordering Physician: AYALA MCMILLAN Performed By: Raymundo Curiel Measurements and Calculations Right Left Dist Pop A PSV -19.4 16.8 cm/sec Dist HAM PSV 104.1 66.3 cm/sec Dist EXTRUSION DIE REPAIR MANAGER PSV 78.6 -62.5 cm/sec Rohith Pedis PSV 99.8 37.0 cm/sec Right Side Arterial Evaluation Normal velocity and biphasic waveforms noted from the Popliteal artery to the infrageniculate vessels. 0-19% stenosis above the Popliteal. Ankle Brachial index was not done due to open wounds. Left Side Arterial Evaluation Normal velocity and biphasic waveforms noted from the Popliteal artery to the infrageniculate vessels. 0-19% stenosis above the Popliteal. Ankle Brachial index was not done due to open wounds. Interpretation Summary Mild hemodynamically significant lesions in the bilateral lower extremities, on duplex imaging, at rest. Please reference prior recent study, for which this is a completion. : AYALA MCMILLAN > Ayala Mcmillan
== END ==
LOC: SP 14:32
PROVIDERS: ATTEND Surgery
DX: L97.222 Non-pressure chronic ulcer of left calf with fat layer exposed (principal)
CPT/HCPCS: 93925

== ENCOUNTER 2017-10-30 15:47 | Inpatient (IN) | payer MEDICARE, OTHER ==
[2017-10-30] MEDS ORDERED: RACEPINEPHRINE HCL 2.25% NEB 0.5 ML AMPUL NEB ONE (16:05)
--- NOTE | 2017-10-30 16:05 | ER Document Report ---
ED General - General Mode of Arrival: Medic Information source: Patient TRAVEL OUTSIDE OF THE [place] IN LAST 30 DAYS: No <RYLAND VIRK - Last Filed: 10/30/17 16:55> <HERB EVANS - Last Filed: 10/30/17 19:55> - General Chief Complaint: Altered Mental Status Stated Complaint: ALTERED MENTAL STATUS Time Seen by Provider: 10/30/17 15:57 Notes: Patient is a 71 year old female presenting to the emergency department accompanied by daughter complaining of fatigue. Daughter states the patient was initially living by herself but recently moved in with her due to the patient being unable to take care of herself. She state for the last 2 days the patient has not been able to stay awake and has been shaking. The patient's PCP is Dr. Luo and states she called him and was directed to come into the emergency department. When asking the patient if anything hurts she states "burning". Daughter further elaborates and states the patient is incontinent and when she urinates, complains of a burning sensation. Patient has sleep apnea is currently on CPAP at night. At bedside, patient is on an oxygen mask. According to EMS notes, the patient has been coughing for 2 weeks. Upon arrival to patients home they proceeded to give 1 albuterol and Ativan, 1 albuterol, 125 Solu-Medrol and mag. Of significance, patient was seen in this emergency department in the past for breathing difficulty in the past and responded well to breathing treatments. ( RYLAND VIRK) The daughter reports the patient does not have a history of asthma or COPD. Her medication list does not show any treatment for asthma or COPD. An arterial blood gas done in April of this year shows extreme hypercapnia with hypoxemia consistent with COPD. She had serum CO2 is at the time that were quite high that were also consistent with CO2 retention and COPD. (HERB EVANS) - Related Data Allergies/Adverse Reactions: adhesive [Adhesive] Allergy (Verified 01/19/17 13:11) No Known Drug Allergies Allergy (Verified 01/19/17 13:11) Past Medical History - General Information source: Patient, Relative - Social History Smoking Status: Unknown if Ever Smoked Family History: CAD, Malignancy - Past Medical History Cardiac Medical History: Reports: Hx Hypercholesterolemia, Hx Hypertension, Hx Peripheral Vascular Disease Pulmonary Medical History: Reports: Hx Sleep Apnea Endocrine Medical History: Reports: Hx Diabetes Mellitus Type 2 GI Medical History: Reports: Hx Gastroesophageal Reflux Disease - Distant history of same; no recent symptoms. Musculoskeletal Medical History: Reports Hx Arthritis Skin Medical History: Reports Hx Cellulitis, Reports Hx MRSA Psychiatric Medical History: Reports: Hx Depression - Denies suicidal or homicidal ideation. Infectious Medical History: Reports: Hx MRSA - Diagnosed August 2016. Past Surgical History: Reports: Hx Orthopedic Surgery, Other - Wound debridement - Immunizations Immunizations up to date: No Hx Diphtheria, Pertussis, Tetanus Vaccination: Yes <RYLAND VIRK - Last Filed: 10/30/17 16:55> Review of Systems - Review of Systems Constitutional: No symptoms reported EENT: No symptoms reported Cardiovascular: No symptoms reported Respiratory: See HPI, Cough Gastrointestinal: No symptoms reported Genitourinary: See HPI, Burning, Incontinence Female Genitourinary: No symptoms reported Musculoskeletal: No symptoms reported Skin: No symptoms reported Hematologic/Lymphatic: No symptoms reported Neurological/Psychological: No symptoms reported -: Yes All other systems reviewed and negative <RYLAND VIRK - Last Filed: 10/30/17 16:55> Physical Exam - General General appearance: Alert, Other - Moaning and moving head side to side at bedside. In distress: None - HEENT Head: Normocephalic, Atraumatic Eyes: Normal Extraocular movements intact: Yes Pupils: PERRL Neck: Normal - Respiratory Respiratory status: No respiratory distress Chest status: Nontender Breath sounds: Rhonchi - Diffuse, Wheezing - tight, upper airway, Other - Patient is hoarse. Chest palpation: Normal - Cardiovascular Rhythm: Regular Heart sounds: Normal auscultation Murmur: No Friction rub: No Gallop: None auscultated - Abdominal Inspection: Obese, Morbidly Obese Distension: No distension Bowel sounds: Normal Tenderness: Nontender Organomegaly: No organomegaly - Back Back: Normal - Extremities General upper extremity: Normal ROM General lower extremity: Normal ROM, Other - Bilateral lower extremities contain stockings and wound dressings. - Neurological Neuro grossly intact: Yes Orientation: AAOx4 Sensory: Normal - Psychological Associated symptoms: Normal affect, Normal mood - Skin Skin Temperature: Warm <RYLAND VIRK - Last Filed: 10/30/17 16:55> <HERB EVANS - Last Filed: 10/30/17 19:55> - Vital signs Vitals: Resp Pulse Ox 19 96 10/30/17 17:10 10/30/17 17:10 - Respiratory Notes: On 7 L of oxygen at bedside, O2 levels were at 97% percent. Turned down oxygen to 5 L and patient remained at 97 percent. (RYLAND VIRK) Course - Laboratory Result Diagrams: 10/30/17 16:05 10/30/17 16:05 <RYLAND VIRK - Last Filed: 10/30/17 16:55> - Laboratory Result Diagrams: 10/30/17 16:05 10/30/17 16:05 - Diagnostic Test Radiology reviewed: Image reviewed, Reports reviewed - Chest x-ray is read as enlarged heart with pulmonary vascular congestion - EKG Interpretation by Me EKG shows normal: Sinus rhythm, [place], Intervals, ST-T Waves. abnormal: QRS Complexes - Inferior and lateral Q waves Rate: Normal - 82 Rhythm: NSR When compared to previous EKG there are: No significant change - Consults Dr. De La Rosa Time consulted: 18:45 Consulted provider: will see as inpatient <HERB EVANS - Last Filed: 10/30/17 19:55> - Re-evaluation Re-evalutation: 10/30/17 16:46 After the racemic epinephrine treatment, the patient's audible wheezes are gone now, but on auscultation she does have air trapping with long end expiratory wheezes. The patient was sleeping and I woke her up to discuss this. She states that that has been a problem for a long time, but the congested cough is a new problem. Her pulse ox was low, on nasal cannula but she does appear to be a mouth breather. The nasal cannula was placed in her mouth to see how she does. 10/30/17 18:41 She continued to hyperventilate, so patient was placed on BiPAP. This seemed to help a little temporarily, but she keeps falling asleep and then hyperventilating. Nurse anesthesia was called to intubate the patient, as her anatomy suggests it could be a difficult intubation. The patient's troponin came back elevated which I suspect is due to hypoxic injury, as there are no EKG changes seen. 10/30/17 19:10 After the patient was intubated, she required very high pressures to ventilate, and had some thick richmond sputum. Her blood pressure did drop to about 100 systolic after the propofol was started. She will be given 2 L of IV normal saline as her lab work suggested that she was dehydrated, but I was concerned about volume expansion prior to having positive pressure ventilation. 10/30/17 19:54 The x-ray image is very difficult to interpret due to how large the patient is. I think comparing the post intubation film with the original chest x-ray the tip may be at or very near the marcia so I will have it pulled back 1 cm and then a blood gas will be done. I have not been successful in getting a radiologist to answer the phone so I can consult with them and they have not read the film. (HERB EVANS) - Vital Signs Vital signs: Temp Pulse Resp BP Pulse Ox 19 96 10/30/17 17:10 10/30/17 18:55 - Laboratory Laboratory results interpreted by me: 10/30/17 10/30/17 10/30/17 16:05 16:05 16:05 WBC 14.8 H Hgb 11.3 L Hct 35.8 L MCH 25.5 L MCHC 31.5 L RDW 17.2 H Absolute Neutrophils 11.2 H Carbonic Acid ABG pH ABG pCO2 ABG pO2 ABG HCO3 ABG Total CO2 ABG O2 Saturation Sodium 145.2 H Potassium 5.5 H BUN 53 H Creatinine 1.98 H Est GFR ( Amer) 30 L Est GFR (Non-Af Amer) 25 L Glucose 161 H NT-Pro-B Natriuret Pep 23997 H 10/30/17 16:28 WBC Hgb Hct MCH MCHC RDW Absolute Neutrophils Carbonic Acid 2.51 H ABG pH 7.17 L* ABG pCO2 83.5 H* ABG pO2 73.7 L ABG HCO3 29.8 H ABG Total CO2 32.4 H ABG O2 Saturation 89.9 L Sodium Potassium BUN Creatinine Est GFR ( Amer) Est GFR (Non-Af Amer) Glucose NT-Pro-B Natriuret Pep Critical Care Note - Critical Care Note Total time excluding time spent on procedures (mins): 55 <HERB EVANS - Last Filed: 10/30/17 19:55> Discharge <RYLAND VIRK - Last Filed: 10/30/17 16:55> - Discharge Admitting Provider: [facility] Unit Admitted: ICU <HERB EVANS - Last Filed: 10/30/17 19:55> - Discharge Clinical Impression: Acute respiratory failure with hypercapnia, Acute respiratory failure with hypoxemia, Dehydration, Elevated troponin I level, Morbid obesity Condition: Serious Disposition: ADMITTED INPATIENT Scribe Attestation: 10/30/17 17:01 I personally performed the services described in the documentation, reviewed and edited the documentation which was dictated to the scribe in my presence, and it accurately records my words and actions. (HERB EVANS) Scribe Documentation - Scribe Written by Syed:: Syed Gutierrez, 10/30/2017 16:30 acting as scribe for :: Yazmin <RYLAND VIRK - Last Filed: 10/30/17 16:55>
[2017-10-30 16:18] LABS: ABSOLUTE BASOPHILS # (AUTO) 0.1 10^3/uL (0.0-0.2); ABSOLUTE LYMPHOCYTES (AUTO) 2.9 10^3/uL (0.5-4.7); ABSOLUTE MONOCYTES (AUTO) 0.7 10^3/uL (0.1-1.4); ABSOLUTE NEUT (AUTO) 11.2 10^3/uL (1.7-8.2); BASOPHILS % (AUTO) 0.5 % (0-2); EOSINOPHILS % (AUTO) 0.1 % (0-6); HEMATOCRIT 35.8 % (36.0-47.0); HEMOGLOBIN 11.3 g/dL (12.0-15.5); LYMPHOCYTES % (AUTO) 19.4 % (13-45); MEAN CORPUSCULAR HEMOGLOBIN 25.5 pg (27.0-33.4); MEAN CORPUSCULAR HGB CONC 31.5 g/dL (32.0-36.0); MEAN CORPUSCULAR VOLUME 81 fl (80-97); MONOCYTES % (AUTO) 4.8 % (3-13); PLATELET COUNT 312 10^3/uL (150-450); RED BLOOD COUNT 4.42 10^6/uL (3.72-5.28); RED CELL DISTRIBUTION WIDTH 17.2 % (11.5-14.0); SEGMENTED NEUTROPHILS % (AUTO) 75.2 % (42-78); TOTAL CELLS COUNTED % (AUTO) 100 %; WHITE BLOOD COUNT 14.8 10^3/uL (4.0-10.5)
[2017-10-30 16:29] LABS: INTERNATIONAL RATION (INR) 1.14; PROTHROMBIN TIME 15.2 SEC (11.4-15.4)
--- NOTE | 2017-10-30 16:33 | RADIOLOGY REPORT (SQ) ---
EXAM DESCRIPTION: CHEST SINGLE VIEW COMPLETED DATE/TIME: 10/30/2017 4:17 pm REASON FOR STUDY: ams COMPARISON: 04/30/2017 NUMBER OF VIEWS: One view. TECHNIQUE: Single frontal radiographic view of the chest acquired. LIMITATIONS: None. FINDINGS: LUNGS AND PLEURA: No opacities, masses or pneumothorax. No pleural effusion. MEDIASTINUM AND HILAR STRUCTURES: No masses or contour abnormality. HEART AND VASCULATURE: Cardiac enlargement. Vascular congestion. BONES: No acute findings. HARDWARE: None in the chest. OTHER: No other significant finding. IMPRESSION: CARDIAC ENLARGEMENT. VASCULAR CONGESTION. TECHNICAL DOCUMENTATION: JOB ID: [id number] [employer]- All Rights Reserved Reading location - IP/workstation name: [email or web address]
[2017-10-30 16:41] LABS: ALANINE AMINOTRANSFERASE 33 U/L (9-52); ALKALINE PHOSPHATASE 89 U/L (38-126); ANION GAP 15 (5-19); ASPARTATE AMINO TRANSFERASE 34 U/L (14-36); BILIRUBIN,DIRECT 0.2 mg/dL (0.0-0.4); BILIRUBIN,TOTAL 0.2 mg/dL (0.2-1.3); BLOOD UREA NITROGEN 53 mg/dL (7-20); CALCIUM 8.4 mg/dL (8.4-10.2); CARBON DIOXIDE 28 mmol/L (22-30); CHLORIDE 102 mmol/L (98-107); CREATINE KINASE 83 U/L (30-135); GLUCOSE 161 mg/dL (75-110); POTASSIUM 5.5 mmol/L (3.6-5.0); SODIUM 145.2 mmol/L (137-145); TOTAL PROTEIN 8.2 g/dL (6.3-8.2)
[2017-10-30] MEDS ORDERED: SUCCINYLCHOLINE CHLORIDE INJ 200 MG/10 ML VIAL ONE (16:48)
[2017-10-30 17:06] LABS: ARTERIAL BLOOD BASE EXCESS -0.6 mmol/L; ARTERIAL BLOOD FIO2 2L; ARTERIAL BLOOD H2CO3 2.51 mmol/L (1.05-1.35); ARTERIAL BLOOD HCO3 29.8 mmol/L (20-26); ARTERIAL BLOOD O2 SATURATION 89.9 % (94-98); ARTERIAL BLOOD PO2 73.7 mmHg (80-100); ARTERIAL BLOOD TOTAL CO2 32.4 mmol/L (21-25)
[2017-10-30 17:08] LABS: ARTERIAL BLOOD PCO2 83.5 mmHg (35-45); ARTERIAL BLOOD PH 7.17 (7.35-7.45)
[2017-10-30] MEDS ORDERED: LEVOFLOXACIN 750 MG/D5W RTU 750 MG/150 ML RTUPB IV ONE (17:43)
[2017-10-30] MEDS ORDERED: IPRATROPIUM/ALBUTEROL 0.5-2.5 MG/3 ML AMPUL NEB ONE (17:56)
[2017-10-30] MEDS ORDERED: PROPOFOL INJ 200 MG/20 ML VIAL IV ONE (19:02)
[2017-10-30] MEDS ORDERED: NORMAL SALINE 1000 ML 250 ML IV ONE (19:05)
[2017-10-30] MEDS ORDERED: PROPOFOL 1,000 MG/100 ML INFUS..BTL IV PRN (19:05)
[2017-10-30] MEDS ORDERED: PROPOFOL 1,000 MG/100 ML INFUS..BTL IV ONE (19:05)
[2017-10-30] MEDS ORDERED: NORMAL SALINE 1000 ML 1,000 ML IV PRN ×2 (19:09→19:29)
[2017-10-30] MEDS ORDERED: ALBUTEROL SULFATE 0.083% NEB 2.5 MG/3 ML AMPUL NEB ONE (19:11)
--- NOTE | 2017-10-30 20:22 | RADIOLOGY REPORT (SQ) ---
EXAM DESCRIPTION: CHEST SINGLE VIEW COMPLETED DATE/TIME: 10/30/2017 7:40 pm REASON FOR STUDY: Postintubation COMPARISON: 10/30/2017 NUMBER OF VIEWS: One view. TECHNIQUE: Single frontal radiographic image of the chest acquired. LIMITATIONS: None. FINDINGS: ENDOTRACHEAL TUBE: Endotracheal tube tip likely near the level of the marcia, poorly visua lized due to patient body habitus and technique. OTHER SUPPORT DEVICES: Nasogastric catheter is present, tip not visualized beyond the GE junction due to body habitus -technique. CHANGES IN RADIOGRAPHIC FINDINGS: Similar basilar opacities. HARDWARE: None in the chest. OTHER: No other significant finding. IMPRESSION: Endotracheal tube tip likely near the level of the marcia, poorly visualized due to fareed ent body habitus and technique. TECHNICAL DOCUMENTATION: JOB ID: [id number] [id number] 2010 [employer]- All Rights Reserved Reading location - IP/workstation name: [email or web address]
[2017-10-30 20:36] LABS: LIPASE 82.7 U/L (23-300); PHOSPHORUS 5.2 mg/dL (2.5-4.5)
[2017-10-30 20:49] LABS: CREATINE KINASE MB 2.28 ng/mL (<4.55)
[2017-10-30 20:52] LABS: TROPONIN I 0.447 ng/mL
[2017-10-30 21:00] LABS: FREE T4 (FREE THYROXINE) 1.18 ng/dL (0.78-2.19)
[2017-10-30 21:14] LABS: THYROID STIMULATING HORMONE 0.81 uIU/mL (0.47-4.68)
[2017-10-30 21:16] LABS: ARTERIAL BLOOD BASE EXCESS -3.7 mmol/L; ARTERIAL BLOOD FIO2 100%; ARTERIAL BLOOD H2CO3 2.14 mmol/L (1.05-1.35); ARTERIAL BLOOD HCO3 25.9 mmol/L (20-26); ARTERIAL BLOOD O2 SATURATION 97.5 % (94-98); ARTERIAL BLOOD PO2 124.9 mmHg (80-100)
[2017-10-30 21:18] LABS: ARTERIAL BLOOD PH 7.18 (7.35-7.45)
[2017-10-30 21:35] LABS: ARTERIAL BLOOD PCO2 71.2 mmHg (35-45)
[2017-10-31 00:28] LABS: AMORPHOUS SEDIMENT,URINE TRACE /HPF; APPEARANCE,URINE CLOUDY; BILIRUBIN,URINE NEGATIVE (NEGATIVE); COLOR,URINE DARK YELLOW; GLUCOSE, URINE NEGATIVE (NEGATIVE); KETONES,URINE NEGATIVE (NEGATIVE); LEUKOCYTE ESTERASE,URINE LARGE (NEGATIVE); NITRITE,URINE NEGATIVE (NEGATIVE); PROTEIN,URINE 100 mg/dL (NEGATIVE); URINE SPECIFIC GRAVITY 1.018; UROBILINOGEN,URINE NEGATIVE mg/dL (<2.0)
--- NOTE | 2017-10-31 00:51 | EKG REPORT ---
SEVERITY:- ABNORMAL ECG - SINUS RHYTHM INFERIOR INFARCT, AGE INDETERMINATE ANTEROLATERAL INFARCT, AGE INDETERMINATE : Confirmed by: Gretchen Duncan MD 31-Oct-2017 00:50:41
[2017-10-31 01:10] LABS: ARTERIAL BLOOD H2CO3 1.74 mmol/L (1.05-1.35); ARTERIAL BLOOD HCO3 24.8 mmol/L (20-26); ARTERIAL BLOOD O2 SATURATION 94.9 % (94-98); ARTERIAL BLOOD PCO2 57.9 mmHg (35-45); ARTERIAL BLOOD PH 7.25 (7.35-7.45); ARTERIAL BLOOD PO2 86.6 mmHg (80-100); ARTERIAL BLOOD TOTAL CO2 26.6 mmol/L (21-25)
[2017-10-31 01:11] LABS: ARTERIAL BLOOD FIO2 60%
[2017-10-31] MEDS: PROPOFOL 1,000 MG/100 ML INFUS..BTL IV PRN ×7 (01:57→21:39)
[2017-10-31 02:43] LABS: CREATINE KINASE MB 2.3 ng/mL (<4.55)
[2017-10-31 02:50] LABS: TROPONIN I 0.43 ng/mL
[2017-10-31] MEDS: IPRATROPIUM/ALBUTEROL 0.5-2.5 MG/3 ML AMPUL NEB PRN (04:25)
[2017-10-31 07:26] LABS: ABSOLUTE LYMPHOCYTES (AUTO) 1.4 10^3/uL (0.5-4.7); ABSOLUTE MONOCYTES (AUTO) 0.6 10^3/uL (0.1-1.4); ABSOLUTE NEUT (AUTO) 9.1 10^3/uL (1.7-8.2); BASOPHILS % (AUTO) 0.2 % (0-2); HEMATOCRIT 32.2 % (36.0-47.0); HEMOGLOBIN 10.4 g/dL (12.0-15.5); LYMPHOCYTES % (AUTO) 12.9 % (13-45); MEAN CORPUSCULAR HEMOGLOBIN 25.6 pg (27.0-33.4); MEAN CORPUSCULAR HGB CONC 32.2 g/dL (32.0-36.0); MEAN CORPUSCULAR VOLUME 79 fl (80-97); PLATELET COUNT 220 10^3/uL (150-450); RED BLOOD COUNT 4.05 10^6/uL (3.72-5.28); RED CELL DISTRIBUTION WIDTH 17.2 % (11.5-14.0); SEGMENTED NEUTROPHILS % (AUTO) 81.9 % (42-78); TOTAL CELLS COUNTED % (AUTO) 100 %; WHITE BLOOD COUNT 11.1 10^3/uL (4.0-10.5)
[2017-10-31 07:33] LABS: INTERNATIONAL RATION (INR) 1.17; PROTHROMBIN TIME 15.5 SEC (11.4-15.4)
--- NOTE | 2017-10-31 07:52 | RADIOLOGY REPORT (SQ) ---
EXAM DESCRIPTION: CHEST SINGLE VIEW COMPLETED DATE/TIME: 10/31/2017 7:04 am REASON FOR STUDY: vent management COMPARISON: AP chest 04/20/2017, 04/30/2017, 10/30/2017 EXAM PARAMETERS: NUMBER OF VIEWS: One view. TECHNIQUE: Single frontal radiographic view of the chest acquired. RADIATION DOSE: NA LIMITATIONS: None. FINDINGS: LUNGS AND PLEURA: Minimal bandlike atelectasis in the right upper lobe near the minor fiss ure, and at both lung bases. No pleural effusion. No pneumothorax. MEDIASTINUM AND HILAR STRUCTURES: No masses. Contour normal. HEART AND VASCULAR STRUCTURES: Stable moderate cardiomegaly BONES: No acute findings. HARDWARE: Endotracheal tube tip 3 cm above the marcia. Nasogastric tube tip and side port in the sto mach. OTHER: No other significant finding. IMPRESSION: Bandlike atelectasis in the right upper lobe and both lung bases. Endotracheal tube, nasogastric tube in good positioning. TECHNICAL DOCUMENTATION: JOB ID: [id number] [employer]- All Rights Reserved Reading location - IP/workstation name: [email or web address]
[2017-10-31 07:57] LABS: ALANINE AMINOTRANSFERASE 32 U/L (9-52); ALBUMIN 3.3 g/dL (3.5-5.0); ALKALINE PHOSPHATASE 77 U/L (38-126); ANION GAP 14 (5-19); ASPARTATE AMINO TRANSFERASE 25 U/L (14-36); BILIRUBIN,DIRECT 0.2 mg/dL (0.0-0.4); BILIRUBIN,TOTAL 0.2 mg/dL (0.2-1.3); BLOOD UREA NITROGEN 56 mg/dL (7-20); CALCIUM 7.9 mg/dL (8.4-10.2); CARBON DIOXIDE 24 mmol/L (22-30); CHLORIDE 105 mmol/L (98-107); CHOLESTEROL 100.55 mg/dL (0-200); GLUCOSE 110 mg/dL (75-110); POTASSIUM 5.2 mmol/L (3.6-5.0); SODIUM 142.6 mmol/L (137-145); TOTAL PROTEIN 7.1 g/dL (6.3-8.2); TRIGLYCERIDES 170 mg/dL (<150)
[2017-10-31 08:08] LABS: CREATINE KINASE MB 2.18 ng/mL (<4.55); DIRECT LDL 57 mg/dL (<100); TROPONIN I 0.399 ng/mL
[2017-10-31] MEDS: IPRATROPIUM/ALBUTEROL 0.5-2.5 MG/3 ML AMPUL NEB SCH ×3 (08:12→19:56)
[2017-10-31 08:41] LABS: ARTERIAL BLOOD BASE EXCESS -2.9 mmol/L; ARTERIAL BLOOD HCO3 25.6 mmol/L (20-26); ARTERIAL BLOOD O2 SATURATION 96.9 % (94-98); ARTERIAL BLOOD PCO2 63.2 mmHg (35-45); ARTERIAL BLOOD PH 7.23 (7.35-7.45); ARTERIAL BLOOD TOTAL CO2 27.6 mmol/L (21-25)
[2017-10-31 08:42] LABS: ARTERIAL BLOOD FIO2 60%
[2017-10-31] MEDS: ENOXAPARIN SODIUM INJ 40 MG/0.4 ML DISP.SYRIN SUBCUT SCH (10:00)
[2017-10-31] MEDS: FUROSEMIDE INJ/PF 40 MG/4 ML SDV IV SCH (10:21)
[2017-10-31] MEDS ORDERED: NORMAL SALINE 1000 ML 500 ML IV PRN (13:26)
[2017-10-31 14:49] LABS: ARTERIAL BLOOD BASE EXCESS 0.3 mmol/L; ARTERIAL BLOOD H2CO3 1.29 mmol/L (1.05-1.35); ARTERIAL BLOOD HCO3 25.4 mmol/L (20-26); ARTERIAL BLOOD PCO2 42.7 mmHg (35-45); ARTERIAL BLOOD PH 7.39 (7.35-7.45); ARTERIAL BLOOD PO2 92.3 mmHg (80-100); ARTERIAL BLOOD TOTAL CO2 26.7 mmol/L (21-25)
[2017-10-31 14:50] LABS: ARTERIAL BLOOD FIO2 50%
[2017-10-31] MEDS: DOBUTAMINE HCL/D5W 500 MG/250 ML RTUINJ IV PRN (15:04)
[2017-10-31] MEDS ORDERED: GLUCAGON,HUMAN RECOMB 1 MG INJ IM PRN (15:10)
[2017-10-31] MEDS ORDERED: DEXTROSE 50%-WATER SYRINGE 25 GM/50 ML DOSE IV PRN (15:10)
[2017-10-31] MEDS ORDERED: DEXTROSE 50%-WATER SYRINGE 12.5 GM/25 ML DOSE IV PRN (15:10)
[2017-10-31] MEDS ORDERED: DEXTROSE 40% GEL 15 GM TUBE PO PRN (15:10)
[2017-10-31] MEDS ORDERED: DEXTROSE 40% GEL 15 GM TUBE X 2 PO PRN (15:10)
[2017-10-31] MEDS: LEVOFLOXACIN 750 MG/D5W RTU 750 MG/150 ML RTUPB IV SCH (18:40)
[2017-10-31] MEDS: NORMAL SALINE 1000 ML 1,000 ML IV PRN (18:47)
--- NOTE | 2017-10-31 19:29 | XCELERA REPORT ---
[address] [address] Transthoracic Echocardiogram Report Name: SERINA LEE Age: 71 yrs Gender: Female : 1945 Patient Status: Inpatient Patient Location: ICU^603^A Study Date: 10/31/2017 11:29 AM Height: 60 in Weight: 429 lb BSA: 2.6 m2 Procedure: A two-dimensional transthoracic echocardiogram with color flow and Doppler was performed. The study was technically difficult with many images being suboptimal in quality. The study was technically limited with all images being suboptimal in quality. Images were not obtained from all of the standard acoustic windows due to the limited scope of the study. Reason For Study: CHF History: CHF. Ordering Physician: GRETCHEN HUNT Performed By: Ankita Ball Interpretation Summary The left ventricle is normal in size. There is mild concentric left ventricular hypertrophy. No True 2 chamber apical views obtained.Hence cannot comment on the apical and basal anterior patrick, and the apical and basal inferior patrick.The mid anterior and the mid inferior and the rest of the patrick contract normally..LVEF is greater than 65%. Doppler measurements suggest impaired left ventricular relaxation, which is associated with grade I/IV or mild diastolic dysfunction The right ventricle is not well visualized secondary to technical limitations The left atrial size is normal. There is no evidence of mitral valve prolapse. There is no mitral valve stenosis. There is no mitral regurgitation noted. There is mild aortic stenosis There is a peak gradient of 19 mm of Hg. There is no LVOT obstruction. No hemodynamically significant valvular aortic stenosis. No aortic regurgitation is present. There is no tricuspid stenosis. There is a mild amount of tricuspid regurgitation There is servere pulmonary hypertension by echo RVSP is greater than 62 mm of Hg , with RA mean greater than 20. The pulmonic valve is not well visualized. The inferior vena cava appeared dilated and did not change with respiration (RAP > 20 mmHg) There is no pericardial effusion. MMode/2D Measurements & Calculations RVDd: 3.9 cm LVIDd: 4.5 cm FS: 34.7 % Ao root diam: 2.8 cm IVSd: 1.3 cm LVIDs: 2.9 cm EDV(Teich): 92.0 ml LVPWd: 1.3 cm ESV(Teich): 33.1 ml Ao root area: 6.0 cm2 EF(Teich): 64.0 % LA dimension: 3.4 cm Doppler Measurements & Calculations MV E max yogi: MV P1/2t max yogi: Ao V2 max: LV V1 max P.6 cm/sec 73.1 cm/sec 219.8 cm/sec 5.8 mmHg MV A max yogi: MV P1/2t: 97.3 msec Ao max PG: LV V1 max: 78.0 cm/sec 19.3 mmHg 120.9 cm/sec MV E/A: 0.93 MVA(P1/2t): 2.3 cm2 MV dec slope: 219.9 cm/sec2 MV dec time: 0.31 sec PA V2 max: TR max yogi: 83.4 cm/sec 321.7 cm/sec PA max PG: TR max P.4 mmHg 2.8 mmHg Left Ventricle The left ventricle is normal in size. There is mild concentric left ventricular hypertrophy. No True 2 chamber apical views obtained.Hence cannot comment on the apical and basal anterior patrick, and the apical and basal inferior patrick.The mid anterior and the mid inferior and the rest of the patrick contract normally..LVEF is greater than 65%. Doppler measurements suggest impaired left ventricular relaxation, which is associated with grade I/IV or mild diastolic dysfunction. There is no thrombus. Right Ventricle The right ventricle is not well visualized secondary to technical limitations. Atria Right atrium not well visualized secondary to technical limitations. The left atrial size is normal. Mitral Valve There is mild mitral annular calcification. There is no evidence of mitral valve prolapse. There is no vegetation seen on the mitral valve. There is no mitral valve stenosis. There is no mitral regurgitation noted. Aortic Valve There is no aortic valvular vegetation. There is mild aortic stenosis. There is a peak gradient of 19 mm of Hg. There is no LVOT obstruction. No hemodynamically significant valvular aortic stenosis. No aortic regurgitation is present. Tricuspid Valve There is no tricuspid stenosis. There is a mild amount of tricuspid regurgitation. There is servere pulmonary hypertension by echo. RVSP is greater than 62 mm of Hg , with RA mean greater than 20. Pulmonic Valve The pulmonic valve is not well visualized. Great Vessels The aortic root is not well visualized but is probably normal size. The inferior vena cava appeared dilated and did not change with respiration (RAP > 20 mmHg). Effusions There is no pericardial effusion. : GRETCHEN HUNT > Gretchen Hunt
--- NOTE | 2017-10-31 20:32 | PDOC H&P ---
History of Present Illness Admission Date/PCP: 10/30/17 19:20 AYALA FARIAS MD History of Present Illness: SERINA LEE is a 71 year old female,I received a call from patient's daughter that patient was stuporous, difficult to arouse I immediately advised her to transfer her to the emergency room, she stated she could not get her transferred to her vehicle I did advise her to call 911. She was transferred by EMS to the emergency room unresponsive. In the emergency room she was evaluated, there was a history of cough for 2 weeks, she was given bronchodilator, Solu-Medrol, she was found to have hypercapnic respiratory failure, she was intubated in emergency room. She is morbidly obese, the body mass index is 84, she is only 5 feet tall, she weighed 195kg, the initial vent setting for tidal volume was based on 6 cm/kg ideal body weight, the ideal body weight for this height was 50 kg. She has a history of chronic diastolic heart failure, chest x-ray suggests pulmonary edema.No history could be obtained from this patient.This patient is massively obese, she has combined hypercapnic and hypoxemic respiratory failure, is most likely from combination of factors including obesity hypoventilation syndrome, acute bronchitis, acute on chronic diastolic heart failure, the troponin is elevated this could represent enzyme leak from cardiac muscles as a result of hypercapnia and hypoxemia or it could be a manifestation of non-ST LA, Past Medical History Cardiac Medical History: Reports: Congestive Heart Failure, Hyperlipidema, Hypertension, Peripheral Vascular Disease Pulmonary Medical History: Reports: Sleep Apnea Endocrine Medical History: Reports: Diabetes Mellitus Type 2 GI Medical History: Reports: Gastroesophageal Reflux Disease - Distant history of same; no recent symptoms. Musculoskeltal Medical History: Reports: Arthritis Psychiatric Medical History: Reports: Depression - Denies suicidal or homicidal ideation. 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 Past Surgical History Past Surgical History: Reports: Orthopedic Surgery, Other - Wound debridement Social History Smoking Status: Never Smoker Frequency of Alcohol Use: None Hx Recreational Drug Use: No Drugs: None Hx Prescription Drug Abuse: No Family History Family History: CAD, Malignancy Parental Family History Reviewed: Yes Children Family History Reviewed: Yes Sibling(s) Family History Reviewed.: Yes Medication/Allergy Home Medications: Atorvastatin Calcium [Lipitor 10 mg Tablet] 10 mg PO QHS 10/31/17 Ergocalciferol (Vitamin D2) [Drisdol 50,000 unit (1.25MG) Capsule] 50,000 unit PO SEGURA@1000 10/31/17 Gabapentin [Neurontin 400 mg Capsule] 800 mg PO BID 10/31/17 Glimepiride [Amaryl] 2 mg PO QAM 10/31/17 Levothyroxine Sodium [Synthroid 0.075 mg Tablet] 0.075 mg PO Q6AM 10/31/17 Lisinopril/Hydrochlorothiazide [Zestoretic 20-25 mg Tablet] 1 tab PO DAILY 10/31 Sertraline HCl [Zoloft] 100 mg PO DAILY 10/31/17 Allergies/Adverse Reactions: adhesive [Adhesive] Allergy (Verified 01/19/17 13:11) No Known Drug Allergies Allergy (Verified 01/19/17 13:11) Review of Systems ROS unobtainable: Due to mental status Physical Exam Vital Signs: Temp Pulse Resp BP Pulse Ox 97.7 F 67 20 136/62 H 95 10/31/17 18:45 10/31/17 14:25 10/31/17 18:45 10/31/17 18:39 10/31/17 18:45 Intake & Output 10/30/17 10/31/17 11/01/17 06:59 06:59 06:59 Intake Total 1211 1347 Output Total 240 1015 Balance 971 332 Weight 195 kg 195 kg General appearance: PRESENT: obese, other - Intubated Eye exam: PRESENT: PERRLA Respiratory exam: PRESENT: wheezes Cardiovascular exam: PRESENT: +S1, +S2 GI/Abdominal exam: PRESENT: soft Extremities exam: PRESENT: pedal edema Neurological exam: PRESENT: alert Results Laboratory Results: 10/31/17 07:16 10/31/17 07:16 10/30/17 10/30/17 10/30/17 19:56 19:56 19:56 WBC RBC Hgb Hct MCV MCH MCHC RDW Plt Count Seg Neutrophils % Lymphocytes % Monocytes % Eosinophils % Basophils % Absolute Neutrophils Absolute Lymphocytes Absolute Monocytes Absolute Eosinophils Absolute Basophils Carbonic Acid HCO3/H2CO3 Ratio ABG pH ABG pCO2 ABG pO2 ABG HCO3 ABG O2 Saturation ABG Base Excess FiO2 Sodium Potassium Chloride Carbon Dioxide Anion Gap BUN Creatinine Est GFR ( Amer) Est GFR (Non-Af Amer) Glucose Calcium Phosphorus 5.2 H Magnesium 2.4 H Total Bilirubin AST ALT Alkaline Phosphatase Ammonia 12.7 Total Protein Albumin Triglycerides Cholesterol LDL Cholesterol Direct VLDL Cholesterol HDL Cholesterol Amylase 41 Lipase 82.7 TSH 0.81 Free T4 1.18 Urine Color Urine Appearance Urine pH Ur Specific [place] Urine Protein Urine Glucose (UA) Urine Ketones Urine Blood Urine Nitrite Ur Leukocyte Esterase Urine WBC (Auto) Urine RBC (Auto) 10/30/17 10/30/17 10/31/17 20:52 23:40 00:45 WBC RBC Hgb Hct MCV MCH MCHC RDW Plt Count Seg Neutrophils % Lymphocytes % Monocytes % Eosinophils % Basophils % Absolute Neutrophils Absolute Lymphocytes Absolute Monocytes Absolute Eosinophils Absolute Basophils Carbonic Acid 2.14 H 1.74 H HCO3/H2CO3 Ratio 12:1 14:1 ABG pH 7.18 L* 7.25 L ABG pCO2 71.2 H* 57.9 H ABG pO2 124.9 H 86.6 ABG HCO3 25.9 24.8 ABG O2 Saturation 97.5 94.9 ABG Base Excess -3.7 -3.0 FiO2 100% 60% Sodium Potassium Chloride Carbon Dioxide Anion Gap BUN Creatinine Est GFR ( Amer) Est GFR (Non-Af Amer) Glucose Calcium Phosphorus Magnesium Total Bilirubin AST ALT Alkaline Phosphatase Ammonia Total Protein Albumin Triglycerides Cholesterol LDL Cholesterol Direct VLDL Cholesterol HDL Cholesterol Amylase Lipase TSH Free T4 Urine Color DARK YELLOW Urine Appearance CLOUDY Urine pH 5.0 Ur Specific [place] 1.018 Urine Protein 100 H Urine Glucose (UA) NEGATIVE Urine Ketones NEGATIVE Urine Blood LARGE H Urine Nitrite NEGATIVE Ur Leukocyte Esterase LARGE H Urine WBC (Auto) 59 Urine RBC (Auto) 171 10/31/17 10/31/17 10/31/17 07:16 07:16 08:25 WBC 11.1 H RBC 4.05 Hgb 10.4 L Hct 32.2 L MCV 79 L MCH 25.6 L MCHC 32.2 RDW 17.2 H Plt Count 220 Seg Neutrophils % 81.9 H Lymphocytes % 12.9 L Monocytes % 5.0 Eosinophils % 0.0 Basophils % 0.2 Absolute Neutrophils 9.1 H Absolute Lymphocytes 1.4 Absolute Monocytes 0.6 Absolute Eosinophils 0.0 Absolute Basophils 0.0 Carbonic Acid 1.90 H HCO3/H2CO3 Ratio 13:1 ABG pH 7.23 L ABG pCO2 63.2 H ABG pO2 109.0 H ABG HCO3 25.6 ABG O2 Saturation 96.9 ABG Base Excess -2.9 FiO2 60% Sodium 142.6 Potassium 5.2 H Chloride 105 Carbon Dioxide 24 Anion Gap 14 BUN 56 H Creatinine 1.77 H Est GFR ( Amer) 34 L Est GFR (Non-Af Amer) 28 L Glucose 110 Calcium 7.9 L Phosphorus Magnesium Total Bilirubin 0.2 AST 25 ALT 32 Alkaline Phosphatase 77 Ammonia Total Protein 7.1 Albumin 3.3 L Triglycerides 170 H Cholesterol 100.55 LDL Cholesterol Direct 57 VLDL Cholesterol 34.0 H HDL Cholesterol 19 L Amylase Lipase TSH Free T4 Urine Color Urine Appearance Urine pH Ur Specific [place] Urine Protein Urine Glucose (UA) Urine Ketones Urine Blood Urine Nitrite Ur Leukocyte Esterase Urine WBC (Auto) Urine RBC (Auto) 10/31/17 14:35 WBC RBC Hgb Hct MCV MCH MCHC RDW Plt Count Seg Neutrophils % Lymphocytes % Monocytes % Eosinophils % Basophils % Absolute Neutrophils Absolute Lymphocytes Absolute Monocytes Absolute Eosinophils Absolute Basophils Carbonic Acid 1.29 HCO3/H2CO3 Ratio 19:1 ABG pH 7.39 ABG pCO2 42.7 ABG pO2 92.3 ABG HCO3 25.4 ABG O2 Saturation 97.0 ABG Base Excess 0.3 FiO2 50% Sodium Potassium Chloride Carbon Dioxide Anion Gap BUN Creatinine Est GFR ( Amer) Est GFR (Non-Af Amer) Glucose Calcium Phosphorus Magnesium Total Bilirubin AST ALT Alkaline Phosphatase Ammonia Total Protein Albumin Triglycerides Cholesterol LDL Cholesterol Direct VLDL Cholesterol HDL Cholesterol Amylase Lipase TSH Free T4 Urine Color Urine Appearance Urine pH Ur Specific [place] Urine Protein Urine Glucose (UA) Urine Ketones Urine Blood Urine Nitrite Ur Leukocyte Esterase Urine WBC (Auto) Urine RBC (Auto) 10/30/17 10/30/17 10/30/17 19:56 19:56 19:56 Creatine Kinase 75 CK-MB (CK-2) 2.28 Troponin I 0.447 NT-Pro-B Natriuret Pep 27321 H 10/31/17 10/31/17 10/31/17 01:42 01:42 07:16 Creatine Kinase 55 46 CK-MB (CK-2) 2.30 Troponin I 0.430 NT-Pro-B Natriuret Pep 10/31/17 07:16 Creatine Kinase CK-MB (CK-2) 2.18 Troponin I 0.399 NT-Pro-B Natriuret Pep Impressions: Chest X-Ray 10/31/17 00:00 IMPRESSION: Bandlike atelectasis in the right upper lobe and both lung bases. Endotracheal tube, nasogastric tube in good positioning. Assessment & Plan - Diagnosis (1) Acute respiratory failure with hypoxia and hypercapnia Is this a current diagnosis for this admission?: Yes Plan: Patient intubated on mechanical ventilation, initial vent setting is based on 6 m/kg ideal body weight, SIMV of 12, pressure support of 10 PEEP of 5, consultation to be requested from pulmonary (2) Acute diastolic (congestive) heart failure Is this a current diagnosis for this admission?: Yes Plan: Start Lasix 40 mg IV daily (3) Morbid obesity with BMI of 70 and over, adult Is this a current diagnosis for this admission?: Yes (4) Obesity hypoventilation syndrome Is this a current diagnosis for this admission?: Yes (5) Elevated troponin Is this a current diagnosis for this admission?: Yes
--- NOTE | 2017-10-31 20:36 | PDOC PROGRESS REPORT ---
Subjective Progress Note for:: 10/31/17 Subjective:: Patient in ICU sedated on mechanical ventilation Reason For Visit: ACUTE RESPIRATORY FAILURE WITH HYPERCAPNIA, Physical Exam Vital Signs: Temp Pulse Resp BP Pulse Ox 97.7 F 67 20 136/62 H 95 10/31/17 18:45 10/31/17 14:25 10/31/17 18:45 10/31/17 18:39 10/31/17 18:45 Intake & Output 10/30/17 10/31/17 11/01/17 06:59 06:59 06:59 Intake Total 1211 1347 Output Total 240 1015 Balance 971 332 Weight 195 kg 195 kg Respiratory exam: PRESENT: clear to auscultation kurt Cardiovascular exam: PRESENT: +S1, +S2 GI/Abdominal exam: PRESENT: soft Neurological exam: PRESENT: other - Sedated Results Laboratory Results: 10/31/17 07:16 10/31/17 07:16 10/30/17 10/30/17 10/30/17 19:56 19:56 19:56 WBC RBC Hgb Hct MCV MCH MCHC RDW Plt Count Seg Neutrophils % Lymphocytes % Monocytes % Eosinophils % Basophils % Absolute Neutrophils Absolute Lymphocytes Absolute Monocytes Absolute Eosinophils Absolute Basophils Carbonic Acid HCO3/H2CO3 Ratio ABG pH ABG pCO2 ABG pO2 ABG HCO3 ABG O2 Saturation ABG Base Excess FiO2 Sodium Potassium Chloride Carbon Dioxide Anion Gap BUN Creatinine Est GFR ( Amer) Est GFR (Non-Af Amer) Glucose Calcium Phosphorus 5.2 H Magnesium 2.4 H Total Bilirubin AST ALT Alkaline Phosphatase Ammonia 12.7 Total Protein Albumin Triglycerides Cholesterol LDL Cholesterol Direct VLDL Cholesterol HDL Cholesterol Amylase 41 Lipase 82.7 TSH 0.81 Free T4 1.18 Urine Color Urine Appearance Urine pH Ur Specific [place] Urine Protein Urine Glucose (UA) Urine Ketones Urine Blood Urine Nitrite Ur Leukocyte Esterase Urine WBC (Auto) Urine RBC (Auto) 10/30/17 10/30/17 10/31/17 20:52 23:40 00:45 WBC RBC Hgb Hct MCV MCH MCHC RDW Plt Count Seg Neutrophils % Lymphocytes % Monocytes % Eosinophils % Basophils % Absolute Neutrophils Absolute Lymphocytes Absolute Monocytes Absolute Eosinophils Absolute Basophils Carbonic Acid 2.14 H 1.74 H HCO3/H2CO3 Ratio 12:1 14:1 ABG pH 7.18 L* 7.25 L ABG pCO2 71.2 H* 57.9 H ABG pO2 124.9 H 86.6 ABG HCO3 25.9 24.8 ABG O2 Saturation 97.5 94.9 ABG Base Excess -3.7 -3.0 FiO2 100% 60% Sodium Potassium Chloride Carbon Dioxide Anion Gap BUN Creatinine Est GFR ( Amer) Est GFR (Non-Af Amer) Glucose Calcium Phosphorus Magnesium Total Bilirubin AST ALT Alkaline Phosphatase Ammonia Total Protein Albumin Triglycerides Cholesterol LDL Cholesterol Direct VLDL Cholesterol HDL Cholesterol Amylase Lipase TSH Free T4 Urine Color DARK YELLOW Urine Appearance CLOUDY Urine pH 5.0 Ur Specific [place] 1.018 Urine Protein 100 H Urine Glucose (UA) NEGATIVE Urine Ketones NEGATIVE Urine Blood LARGE H Urine Nitrite NEGATIVE Ur Leukocyte Esterase LARGE H Urine WBC (Auto) 59 Urine RBC (Auto) 171 10/31/17 10/31/17 10/31/17 07:16 07:16 08:25 WBC 11.1 H RBC 4.05 Hgb 10.4 L Hct 32.2 L MCV 79 L MCH 25.6 L MCHC 32.2 RDW 17.2 H Plt Count 220 Seg Neutrophils % 81.9 H Lymphocytes % 12.9 L Monocytes % 5.0 Eosinophils % 0.0 Basophils % 0.2 Absolute Neutrophils 9.1 H Absolute Lymphocytes 1.4 Absolute Monocytes 0.6 Absolute Eosinophils 0.0 Absolute Basophils 0.0 Carbonic Acid 1.90 H HCO3/H2CO3 Ratio 13:1 ABG pH 7.23 L ABG pCO2 63.2 H ABG pO2 109.0 H ABG HCO3 25.6 ABG O2 Saturation 96.9 ABG Base Excess -2.9 FiO2 60% Sodium 142.6 Potassium 5.2 H Chloride 105 Carbon Dioxide 24 Anion Gap 14 BUN 56 H Creatinine 1.77 H Est GFR ( Amer) 34 L Est GFR (Non-Af Amer) 28 L Glucose 110 Calcium 7.9 L Phosphorus Magnesium Total Bilirubin 0.2 AST 25 ALT 32 Alkaline Phosphatase 77 Ammonia Total Protein 7.1 Albumin 3.3 L Triglycerides 170 H Cholesterol 100.55 LDL Cholesterol Direct 57 VLDL Cholesterol 34.0 H HDL Cholesterol 19 L Amylase Lipase TSH Free T4 Urine Color Urine Appearance Urine pH Ur Specific [place] Urine Protein Urine Glucose (UA) Urine Ketones Urine Blood Urine Nitrite Ur Leukocyte Esterase Urine WBC (Auto) Urine RBC (Auto) 10/31/17 14:35 WBC RBC Hgb Hct MCV MCH MCHC RDW Plt Count Seg Neutrophils % Lymphocytes % Monocytes % Eosinophils % Basophils % Absolute Neutrophils Absolute Lymphocytes Absolute Monocytes Absolute Eosinophils Absolute Basophils Carbonic Acid 1.29 HCO3/H2CO3 Ratio 19:1 ABG pH 7.39 ABG pCO2 42.7 ABG pO2 92.3 ABG HCO3 25.4 ABG O2 Saturation 97.0 ABG Base Excess 0.3 FiO2 50% Sodium Potassium Chloride Carbon Dioxide Anion Gap BUN Creatinine Est GFR ( Amer) Est GFR (Non-Af Amer) Glucose Calcium Phosphorus Magnesium Total Bilirubin AST ALT Alkaline Phosphatase Ammonia Total Protein Albumin Triglycerides Cholesterol LDL Cholesterol Direct VLDL Cholesterol HDL Cholesterol Amylase Lipase TSH Free T4 Urine Color Urine Appearance Urine pH Ur Specific [place] Urine Protein Urine Glucose (UA) Urine Ketones Urine Blood Urine Nitrite Ur Leukocyte Esterase Urine WBC (Auto) Urine RBC (Auto) 10/30/17 10/30/17 10/30/17 19:56 19:56 19:56 Creatine Kinase 75 CK-MB (CK-2) 2.28 Troponin I 0.447 NT-Pro-B Natriuret Pep [id number] H 10/31/17 10/31/17 10/31/17 01:42 01:42 07:16 Creatine Kinase 55 46 CK-MB (CK-2) 2.30 Troponin I 0.430 NT-Pro-B Natriuret Pep 10/31/17 07:16 Creatine Kinase CK-MB (CK-2) 2.18 Troponin I 0.399 NT-Pro-B Natriuret Pep Impressions: Chest X-Ray 10/31/17 00:00 IMPRESSION: Bandlike atelectasis in the right upper lobe and both lung bases. Endotracheal tube, nasogastric tube in good positioning. Assessment & Plan - Diagnosis (1) Acute respiratory failure with hypoxia and hypercapnia Is this a current diagnosis for this admission?: Yes Plan: Continue mechanical ventilation, pulmonary following (2) Acute diastolic (congestive) heart failure Is this a current diagnosis for this admission?: Yes (3) Morbid obesity with BMI of 70 and over, adult Is this a current diagnosis for this admission?: Yes (4) Obesity hypoventilation syndrome Is this a current diagnosis for this admission?: Yes (5) Elevated troponin Is this a current diagnosis for this admission?: Yes Plan: 2D echo was done, it demonstrated preserved ejection fraction of left ventricle
[2017-10-31] MEDS: PANTOPRAZOLE SODIUM 40 MG VIAL IV SCH (21:39)
[2017-10-31] MEDS: NYSTATIN TOPICAL POWDER 15 GM TP SCH (21:39)
[2017-11-01] MEDS: PROPOFOL 1,000 MG/100 ML INFUS..BTL IV PRN ×13 (01:26→23:06)
[2017-11-01] MEDS: NYSTATIN TOPICAL POWDER 15 GM TP SCH ×6 (01:26→21:21)
[2017-11-01] MEDS: IPRATROPIUM/ALBUTEROL 0.5-2.5 MG/3 ML AMPUL NEB SCH ×4 (02:12→20:37)
[2017-11-01] MEDS: NORMAL SALINE 1000 ML 1,000 ML IV PRN ×2 (03:42→16:09)
[2017-11-01] MEDS: DOBUTAMINE HCL/D5W 500 MG/250 ML RTUINJ IV PRN (04:39)
[2017-11-01] MEDS: MORPHINE SULFATE 10 MG/ML INJ IV PRN ×2 (04:41→23:12)
[2017-11-01 05:12] LABS: ABSOLUTE BASOPHILS # (AUTO) 0.1 10^3/uL (0.0-0.2); ABSOLUTE EOSINOPHILS # (AUTO) 0.1 10^3/uL (0.0-0.6); ABSOLUTE LYMPHOCYTES (AUTO) 2.5 10^3/uL (0.5-4.7); ABSOLUTE MONOCYTES (AUTO) 0.6 10^3/uL (0.1-1.4); ABSOLUTE NEUT (AUTO) 8.6 10^3/uL (1.7-8.2); BASOPHILS % (AUTO) 0.4 % (0-2); HEMATOCRIT 30.6 % (36.0-47.0); HEMOGLOBIN 9.8 g/dL (12.0-15.5); MEAN CORPUSCULAR HEMOGLOBIN 25.7 pg (27.0-33.4); MEAN CORPUSCULAR HGB CONC 32.2 g/dL (32.0-36.0); MEAN CORPUSCULAR VOLUME 80 fl (80-97); MONOCYTES % (AUTO) 5.4 % (3-13); PLATELET COUNT 239 10^3/uL (150-450); RED BLOOD COUNT 3.83 10^6/uL (3.72-5.28); RED CELL DISTRIBUTION WIDTH 17.8 % (11.5-14.0); SEGMENTED NEUTROPHILS % (AUTO) 72.2 % (42-78); TOTAL CELLS COUNTED % (AUTO) 100 %
[2017-11-01 05:14] LABS: INTERNATIONAL RATION (INR) 1.15; PROTHROMBIN TIME 15.3 SEC (11.4-15.4)
[2017-11-01 05:19] LABS: ARTERIAL BLOOD H2CO3 1.51 mmol/L (1.05-1.35); ARTERIAL BLOOD HCO3 25.4 mmol/L (20-26); ARTERIAL BLOOD O2 SATURATION 97.6 % (94-98); ARTERIAL BLOOD PH 7.32 (7.35-7.45)
[2017-11-01 05:20] LABS: ARTERIAL BLOOD FIO2 50%
[2017-11-01 05:38] LABS: ALANINE AMINOTRANSFERASE 28 U/L (9-52); ALKALINE PHOSPHATASE 69 U/L (38-126); ANION GAP 12 (5-19); ASPARTATE AMINO TRANSFERASE 22 U/L (14-36); BILIRUBIN,DIRECT 0.2 mg/dL (0.0-0.4); BILIRUBIN,TOTAL 0.2 mg/dL (0.2-1.3); BLOOD UREA NITROGEN 55 mg/dL (7-20); CALCIUM 7.9 mg/dL (8.4-10.2); CARBON DIOXIDE 24 mmol/L (22-30); CHLORIDE 107 mmol/L (98-107); GLUCOSE 70 mg/dL (75-110); POTASSIUM 4.6 mmol/L (3.6-5.0); SODIUM 143.3 mmol/L (137-145); TOTAL PROTEIN 6.5 g/dL (6.3-8.2)
--- NOTE | 2017-11-01 08:35 | RADIOLOGY REPORT (SQ) ---
EXAM DESCRIPTION: CHEST SINGLE VIEW COMPLETED DATE/TIME: 11/01/2017 6:47 am REASON FOR STUDY: on ventilator COMPARISON: Chest films 04/20/2017, 10/30/2017, 10/31/2017 EXAM PARAMETERS: NUMBER OF VIEWS: One view. TECHNIQUE: Single frontal radiographic view of the chest acquired. RADIATION DOSE: NA LIMITATIONS: Obese patient, portable technique FINDINGS: LUNGS AND PLEURA: Partial collapse of the right middle lobe with bandlike density over the right lower lung. There is left retrocardiac consolidation in the lower lobe atelectasis versus pneumonia. No gross pleural effusion or pneumothorax. MEDIASTINUM AND HILAR STRUCTURES: No masses. Contour normal. HEART AND VASCULAR STRUCTURES: Stable cardiomegaly BONES: No acute findings. HARDWARE: Endotracheal tube tip 3 cm above the marcia. Nasogastric tube tip and side port in the sto mach. OTHER: No other significant finding. IMPRESSION: Collapse/ consolidation in the right middle lobe and left retrocardiac regions. Endotracheal and nasogastric tubes in good positioning TECHNICAL DOCUMENTATION: JOB ID: [id number] [employer]- All Rights Reserved Reading location - IP/workstation name: [facility] / [email or web address]
--- NOTE | 2017-11-01 09:16 | CONSULTATION REPORT E ---
Consultation Report NAME: SERINA LEE : 1945 AGE: 71Y DATE: 10/31/2017 ROOM: 603 A TO: ADRIAN GROVES M.D. FROM: CRUZ HUERTA M.D. Requesting Physician REASON FOR CONSULTATION: The patient is a 71-year-old female who came into the Emergency Room with increasing fatigue. Patient has been increasingly lethargic at home, fatigued, weak. Patient has been increasingly short of breath. I was consulted today because the patient was endotracheally intubated and mechanically ventilated. PAST MEDICAL HISTORY: History of COPD/asthma. History of hyperlipidemia, hypertension, peripheral vascular disease, sleep apnea, diabetes type 2, gastroesophageal reflux disease, osteoarthritis, cellulitis, MRSA, and depression. PAST SURGICAL HISTORY: History of orthopaedic surgery and wound debridement. ALLERGIES: LASIX. SOCIAL HISTORY: Unknown if patient was smoking before. FAMILY HISTORY: CVA and malignancy. REVIEW OF SYSTEMS: CONSTITUTIONAL: No fever or chills. HEENT: No ear or nasal discharge. No nystagmus. CARDIOVASCULAR: No chest pain or palpitations. RESPIRATORY: Labored respirations with cough productive of yellow phlegm for the last 1 to 2 weeks. GASTROINTESTINAL: No nausea or vomiting. GENITOURINARY: No dysuria. No bowel or bladder symptoms. PHYSICAL EXAMINATION: GENERAL: The patient is mechanically ventilated, endotracheally intubated and on the ventilator. EYES: No jaundice or pallor. EARS, NOSE, AND THROAT: No ear drainage. No nasal discharge. Orotracheal secretions clear. CHEST AND LUNGS: No wheezing, no rhonchi. CARDIOVASCULAR: S1 and S2 distinct. Normal rate, regular rhythm. ABDOMEN: Flabby. Positive bowel sounds. Soft, nondistended. EXTREMITIES: No joint swelling or cellulitis. LABORATORY: CBC done today showed a white count of 11.1, down from 14.8 yesterday. Hemoglobin was 10.4, hematocrit 32.2, platelet count was 220, no bands noted. Blood gas done in the afternoon at 2:35 p.m. showed pH of 7.39, 42.7, 92.3, bicarb 25.4. Oxygen saturation is 97% on 50% FIO2, SIMV rate of 20, tidal volume of 400, respiratory rate of 20, FIO2 50%, PEEP of 10, pressure support of 10, minute ventilation is 8, CP airway pressure is above 27, average airway pressure is 35. Chest x-ray showed cardiomegaly, possible pleural effusion on left side, and possibly pulmonary edema. ASSESSMENT: 1. Acute respiratory failure requiring invasive mechanical ventilation. 2. Pulmonary edema/congestive heart failure. 3. Asthma/chronic obstructive pulmonary disease . PLAN AND RECOMMENDATIONS: 1. We will continue ventilator support. We will keep the SIMV rate of 20, tidal volume 400, pressure support of 10, PEEP of 5, and FIO2 50% titrated to 50% to keep saturations 91% to 94%. 2. Continue nutritional and hemodynamic supporrt 3. We will check a CBC, chemistry, and bloods tomorrow. 4. We will start her on NG tube feeding using Oxepa 1.5 calories at 20 mL/hr. DICTATING PHYSICIAN: ADRIAN GROVES MD,YELENA,MPH [id number] PHY#: [id number] ID: [id number] JOB#: [id number] ACCT: [id number] cc:ADRIAN GROVES M.D. > MTDD
--- NOTE | 2017-11-01 09:56 | CONSULTATION REPORT E ---
Consultation Report NAME: SERINA LEE : 1945 AGE: 71Y DATE: 10/31/2017 603 A TO: ROMELIA HUNT M.D. FROM: CRUZ HUERTA M.D. Requesting Physician TIME OF CONSULTATION: 1300 REASON FOR CONSULTATION: Congestive heart failure and respiratory failure and elevated troponin I. HISTORY OF PRESENT ILLNESS: NOTE: The patient is intubated and sedated. There are no relatives available at this time. Hence, history obtained from the patient's chart. The patient is a 71-year-old female who has a history of hypertension, hyperlipidemia, diabetes mellitus, obstructive sleep apnea, intolerant to CPAP, history of arthritis and depression, who as per the records, had a 2-week history of cough. The cough was not productive of any sputum or carotid sputum. The patient's daughter called 911 since the patient was acutely short of breath and EMS found patient to be unresponsive. She was given bronchodilator, Solu-Medrol and was found to have hypercapnic respiratory failure with a pH of 7.17, which was mixed respiratory and metabolic acidosis with worsening of her renal function. The patient has been intubated. Her troponin I was elevated, but there are no acute EKG changes. Her chest x-ray shows not only congestive heart failure, which is mild, but also bilateral patchy infiltrates suggestive of pneumonia with the left side being retrocardiac. The patient initially was treated with Lasix, and in spite of that, the patient's urine output was declining. It was clear that the patient, when she came in, was in mild congestive heart failure due to the patient's acute respiratory insult with acidosis and hypercapnia causing both systolic and diastolic failure on the patient, but once the patient has been intubated, the patient's LF function, which is normal, the patient's CHF cleared, and the patient at present seems to be volume depleted. There is no arrhythmia seen. PAST MEDICAL HISTORY: Positive for history of: 1. Diastolic heart failure. 2. Hyperlipidemia. 3. Hypertension. 4. Peripheral vascular disease. 5. She has a history of methicillin-resistant Staph aureus infecting a left wound for which she had surgery. 6. GERD. 7. Diabetes mellitus type 2. 8. Obstructive sleep apnea with CPAP. 9. Morbid obesity with sleep apnea and hypoventilation syndrome. There is no history of TIA or CVA. No history of seizures, headaches, or migraines. There is no prior history of coronary artery disease or SC. PAST SURGICAL HISTORY: Positive for orthopedic surgery and also wound debridement for methicillin-resistant staph infection. SOCIAL HISTORY: The patient does not smoke. There is no history of ETOH abuse. FAMILY HISTORY: Positive for coronary artery disease and malignancy. DISPOSITION: The patient is a FULL CODE. Her daughter is the surrogate healthcare decision maker. ALLERGIES: She is allergic to ADHESIVE TAPE, but no known drug allergies. REVIEW OF SYSTEMS: Not obtainable since the patient is intubated and sedated. MEDICATIONS: 1. Glutose 40% gel 15 g p.o. and 30 g p.o. p.r.n. hypoglycemia. 2. Dextrose 50% 12.5 g and 25 g IV p.r.n. hypoglycemia. 3. Lovenox 40 mg subcutaneously daily. 4. Lasix 40 mg IV daily. 5. Glucagon 1 mg IM p.r.n. hypoglycemia. 6. Duoneb nebulizer treatment q. 2 hours p.r.n. 7. Duoneb nebulizer treatment 3 mL nebulizer treatment q. 6 hours. 8. She did receive normal saline 2 L in the emergency room. 9. She is also on nystatin 1 application topically q. 4 hours. 10. Pantoprazole sodium 40 mg IV daily at bedtime. 11. Propofol drip for sedation. PHYSICAL EXAMINATION: GENERAL: The patient is morbidly obese. She is sedated and on the ventilator. VITAL SIGNS: She is afebrile with a temperature of 98 degrees Fahrenheit, pulse is 68 beats per minute, blood pressure is 116/65, pulse rate is 82 beats per minute, respirations are 20 on the ventilator with O2 saturation of 97% with FiO2 of 50%. HEAD: Atraumatic, normocephalic. EYES: Pupils are equal, round, reactive to light. EARS: Tympanic membranes are intact. NOSE: There is no inflammation of the nasal mucous membrane. There is no deviated nasal septum. MOUTH: Looks dry. There are no ulcers in the mouth. THROAT: Not examined. NECK: Supple. There is no JVD at present. Carotids are equal. There is no bruit. There is no goiter. LUNGS: Trachea is central. There is scattered rhonchi, but no wheezing. There are a few dry crackles in the right base greater than the left base. At present, there are no rales or CHF. CARDIOVASCULAR: S1 and S2 are heard. There is no S3 gallop. There is no S4 gallop. There is a systolic murmur in the left sternal border of the apex. There is no rub. ABDOMEN: Soft, obese, nontender. There is no hepatosplenomegaly. Bowel sounds are well heard. There are no tender areas or masses. EXTREMITIES: Femorals are diminished. There is no femoral bruit. Leg pulses are diminished. There is no pedal edema. There is no DVT or cellulitis. There is no calf tenderness. There is no cyanosis or clubbing. CENTRAL NERVOUS SYSTEM/PSYCHIATRIC: Not examined. DIAGNOSTIC STUDIES: The patient's initial chest x-ray showed some vascular congestion. Subsequently, there are more opacities bilaterally. Initial x-ray also showed some bilateral opacities, which are patchy. The patient's EKG showed sinus rhythm, possible old inferior infarct, poor R-wave, cannot exclude anterolateral SC. The patient's sodium is 145.2, potassium was 5.5 yesterday, chloride was 102, CO2 was 28. The patient's BUN was 53, creatinine 1.98. GFR is reduced at 25. The patient's lactic acid was 0.7. Her hemoglobin A1C is 5.6. Her liver function tests are normal. Her initial troponin I was elevated at 0.320 and subsequently went up to 0.447 and has come down to 0.430 and 0.399. Her total protein 7.1, albumin is 3.8. Her triglycerides are 170. Her HDL cholesterol is low at 19. Her LDL cholesterol is good at 57. The patient's calcium is 7.9. The patient's sodium is 142.6, potassium 5.2, chloride is 105, CO2 is 24. The patient's BUN is 56, creatinine is 1.77, GFR is 28 mL, which is slightly improved. The patient's ABG initially on admission showed a pH of 7.17, PCO2 was 83.5, PO2 was 73.7, and O2 sat was 89.9 on 2 L. Today, on 50%, the pH is 7.39, PCO2 is 42.7, PO2 is 92.3, and her O2 saturations are 97% on 50% FiO2. The pro-time is 15.5, INR is 1.17. Her PTT is 24.9. White count is 7100. Hemoglobin is 10.4, hematocrit is 32.2, and the platelet count is 220,000. The patient's preliminary record shows a normal LV ejection fraction with mild LV diastolic dysfunction. No significant stenosis or regurgitation seen. No pericardial effusion. IMPRESSION: 1. Acute hypoxic and hypercapnic respiratory failure. 2. Bilateral pneumonia. 3. Transient congestive heart failure, most likely secondary to myocardial depression and systolic dysfunction and increase in diastolic dysfunction caused by acidosis and hypoxemia and heart failure. 4. Elevated troponin I. This is most likely secondary to supply demand mismatch, although a non-ST elevation cannot be entirely excluded in view of the patient's EKG findings, although they do not show anything acute. They suggest prior infarction, which is not supported by the echocardiogram findings, which has no wall motion abnormality. The low voltage most likely is secondary to the patient's morbid obesity. 5. Hypertension. 6. Obstructive sleep apnea. 7. Diabetes mellitus. 8. GERD. 9. Morbid obesity. 10. Chronic kidney disease, at present stage 4. The patient seems to have a history of chronic kidney disease, most likely stage 3. RECOMMENDATION: Would stop the patient's Lasix now since the heart failure has resolved. Will continue the patient on antibiotics. Continue ventilator support and duo nebulizer treatments since the hypoxemia and hypercapnia have resolved now. Would also recommend start the patient on Dobutrex drip and *------* 100 mL of normal saline. Tomorrow, will see if we can add some nitrates. NOTE: Sixty minutes spent on the patient with more than 50% of the time spent in direct patient care. Medical decision making is of high complexity. NOTE: Medications were reviewed and the patient was started on dobutamine to increase the patient's cardiac output. In spite of normal LV ejection fraction, the cardiac output may not be enough to support the patient's present metabolic demands. Discussed with the attending physician on the case and other caregiving providers on the case. NOTE: Medical decision making is of high complexity. Dr. Herrera will follow the patient in the a.m. The echo findings were discussed with the attending physician. DICTATING PHYSICIAN: ROMELIA HUNT M.D. [id number] PHY#: [id number] ID: [id number] JOB#: [id number] ACCT: [id number] cc:ROMELIA UHNT M.D. >
--- NOTE | 2017-11-01 10:03 | EKG REPORT ---
SEVERITY:- ABNORMAL ECG - SINUS RHYTHM VENTRICULAR PREMATURE COMPLEX PROBABLE INFERIOR INFARCT, AGE INDETERMINATE BORDERLINE R WAVE PROGRESSION, ANTERIOR LEADS : Confirmed by: Grazyna Herrera 01-Nov-2017 10:03:26
[2017-11-01] MEDS: ENOXAPARIN SODIUM INJ 40 MG/0.4 ML DISP.SYRIN SUBCUT SCH (10:39)
--- NOTE | 2017-11-01 10:39 | RADIOLOGY REPORT (SQ) ---
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 TECHNIQUE: Fluoroscopic and ultrasound guided PICC placement. LIMITATIONS: None. PROCEDURE: After consent and assessment were obtained, Ultrasound evaluation of potential access sit es were performed. After successfully identifying a patent right basilic vein, the right arm was prep ped and draped in a sterile fashion along with the ultrasound probe. The entry site was anesthetized with 1% lidocaine. A 21 gauge 7 cm needle was advanced through the skin and into the basilic vein und er live ultrasound guidance. An ultrasound image was saved to PACS confirming access site. A .018 g uide wire was then inserted through the needle and into the venous system. The needle was the removed and an 11 blade scalpel was used to make a 1cm skin incision. A 5 fr peel-away sheath was advanced over the wire and into the venous system. A measurement was then made using the existing wire and eveline e fluoroscopic guidance. The wire was then removed and the trimmed. The PICC was advanced through the peel-away sheath and into the venous system. The peel-away sheath was removed and the catheter was a dhered to the patients arm with a stat lock. The catheter was then aspirated and flushed and a steril e bandage was placed over the access site. A portable chest film was saved to PACS confirming the catheter tip within the superior vena cava. C hest films also demonstrates persistent right middle lobe and left retrocardiac consolidation atelect asis versus pneumonia. Endotracheal tube tip 5 cm above the marcia. Nasogastric tube tip and side p ort in the stomach. IMPRESSION: SUCCESSFUL PLACEMENT OF A 5 FR DUAL LUMEN 46 CM PICC IN THE RIGHT BASILIC VEIN. COMMENT: Patient medication list reviewed: Yes- Quality ID# 130:Eligible professional attests to doc umenting in the medical record they obtained, updated, or reviewed the patient's current medications. . Quality ID 145: Final reports for procedures using fluoroscopy that document radiation exposure pop alfred, or exposure time and number of fluorographic images (if radiation exposure indices are not avail able) Quality ID #76: The patient was prepped and draped using maximum sterile barrier technique including cap, mask, sterile gown, sterile gloves, a large sterile sheet, hand hygiene, and 2% Chlorhexidine fo r cutaneous antisepsis. When ultrasound is used, sterile ultrasound techniques are followed requiring sterile gel and sterile probes. TECHNICAL DOCUMENTATION: JOB ID: [id number] [employer]- All Rights Reserved rev Reading location - IP/workstation name: [email or web address] [id number]
--- NOTE | 2017-11-01 10:39 | RADIOLOGY REPORT (SQ) ---
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 TECHNIQUE: Fluoroscopic and ultrasound guided PICC placement. LIMITATIONS: None. PROCEDURE: After consent and assessment were obtained, Ultrasound evaluation of potential access sit es were performed. After successfully identifying a patent right basilic vein, the right arm was prep ped and draped in a sterile fashion along with the ultrasound probe. The entry site was anesthetized with 1% lidocaine. A 21 gauge 7 cm needle was advanced through the skin and into the basilic vein und er live ultrasound guidance. An ultrasound image was saved to PACS confirming access site. A .018 g uide wire was then inserted through the needle and into the venous system. The needle was the removed and an 11 blade scalpel was used to make a 1cm skin incision. A 5 fr peel-away sheath was advanced over the wire and into the venous system. A measurement was then made using the existing wire and eveline e fluoroscopic guidance. The wire was then removed and the trimmed. The PICC was advanced through the peel-away sheath and into the venous system. The peel-away sheath was removed and the catheter was a dhered to the patients arm with a stat lock. The catheter was then aspirated and flushed and a steril e bandage was placed over the access site. A portable chest film was saved to PACS confirming the catheter tip within the superior vena cava. C hest films also demonstrates persistent right middle lobe and left retrocardiac consolidation atelect asis versus pneumonia. Endotracheal tube tip 5 cm above the marcia. Nasogastric tube tip and side p ort in the stomach. IMPRESSION: SUCCESSFUL PLACEMENT OF A 5 FR DUAL LUMEN 46 CM PICC IN THE RIGHT BASILIC VEIN. COMMENT: Patient medication list reviewed: Yes- Quality ID# 130:Eligible professional attests to doc umenting in the medical record they obtained, updated, or reviewed the patient's current medications. . Quality ID 145: Final reports for procedures using fluoroscopy that document radiation exposure pop alfred, or exposure time and number of fluorographic images (if radiation exposure indices are not avail able) Quality ID #76: The patient was prepped and draped using maximum sterile barrier technique including cap, mask, sterile gown, sterile gloves, a large sterile sheet, hand hygiene, and 2% Chlorhexidine fo r cutaneous antisepsis. When ultrasound is used, sterile ultrasound techniques are followed requiring sterile gel and sterile probes. TECHNICAL DOCUMENTATION: JOB ID: [id number] [employer]- All Rights Reserved rev Reading location - IP/workstation name: [id number]
[2017-11-01] MEDS: FUROSEMIDE INJ/PF 40 MG/4 ML SDV IV SCH (10:40)
--- NOTE | 2017-11-01 12:00 | PDOC PROGRESS REPORT ---
Subjective Progress Note for:: 11/01/17 Subjective:: Patient about the same and has made very little progress. There is no significant change in general condition. Patient remains intubated, sedated, patient however looks comfortable and in acute distress. Patient was started on dobutamine infusion yesterday because of decreased urine output. 2D echo results reviewed. Patient has normal LVEF. Ideally dopamine would have been a better choice but today will try taper and DC dobutamine infusion. Patient is maintaining vitals well. Medications reviewed. Reason For Visit: ACUTE RESPIRATORY FAILURE WITH HYPERCAPNIA, Physical Exam Vital Signs: Temp Pulse Resp BP Pulse Ox 97.3 F 84 20 122/63 99 11/01/17 11:45 11/01/17 11:45 11/01/17 11:45 11/01/17 11:45 11/01/17 11:45 Intake & Output 10/31/17 11/01/17 11/02/17 06:59 06:59 06:59 Intake Total 1211 3491 192 Output Total 240 2615 725 Balance 971 876 -533 Weight 195 kg 194.6 kg Exam: GENERAL: well-nourished and in no acute distress. Patient is intubated and sedated. Orientation cannot be checked HEAD: Atraumatic, normocephalic. EYES: Pupils equal round and reactive to light, extraocular movements could not be checked, sclera anicteric, conjunctiva are normal. ENT: TMs normal, nares patent, oropharynx clear without exudates. Moist mucous membranes. No oral ulcerations or bleeding gums noted NECK: supple without lymphadenopathy or JVD. Trachea is central. No cervical or axillary lymphadenopathy noted. Carotids are 2+ LUNGS: Breath sounds mostly clear to auscultation patient is noted to have bibasal crackles at the extreme bases CHEST: Palpation of the chest wall shows no significant chest wall tenderness or abnormalities. HEART: [place] [employer] EXPERIENCE STRATEGY, No PSH, 2/6 ELLE aortic area, 1/6 vieyra systolic murmur mitral area , no rubs or gallops. ABDOMEN: Soft, no significant tenderness appreciated, normoactive bowel sounds. No guarding, no rebound. No rigidity noted . No masses appreciated. EXTREMITIES: Pedal pulses are 1-2+, no calf tenderness noted, 1+ pedal edema noted. No clubbing or cyanosis. NEUROLOGICAL: The patient cannot participate in the neurological exam but no facial asymmetry noted. Extremities slightly hypotonic PSYCH: This cannot be evaluated. Patient cannot participate. SKIN: No significant ecchymosis, rash, or signs of pruritus noted. MUSCULOSKELETAL EXAM: No significant joint swelling noted. Patient cannot participate in musculoskeletal exam Results Laboratory Results: 11/01/17 05:01 11/01/17 05:01 10/31/17 11/01/17 11/01/17 14:35 04:45 05:01 WBC 12.0 H RBC 3.83 Hgb 9.8 L Hct 30.6 L MCV 80 MCH 25.7 L MCHC 32.2 RDW 17.8 H Plt Count 239 Seg Neutrophils % 72.2 Lymphocytes % 21.0 Monocytes % 5.4 Eosinophils % 1.0 Basophils % 0.4 Absolute Neutrophils 8.6 H Absolute Lymphocytes 2.5 Absolute Monocytes 0.6 Absolute Eosinophils 0.1 Absolute Basophils 0.1 Carbonic Acid 1.29 1.51 H HCO3/H2CO3 Ratio 19:1 16:1 ABG pH 7.39 7.32 L ABG pCO2 42.7 50.0 H ABG pO2 92.3 110.0 H ABG HCO3 25.4 25.4 ABG O2 Saturation 97.0 97.6 ABG Base Excess 0.3 -1.0 FiO2 50% 50% Sodium Potassium Chloride Carbon Dioxide Anion Gap BUN Creatinine Est GFR ( Amer) Est GFR (Non-Af Amer) Glucose Calcium Total Bilirubin AST ALT Alkaline Phosphatase Total Protein Albumin 11/01/17 05:01 WBC RBC Hgb Hct MCV MCH MCHC RDW Plt Count Seg Neutrophils % Lymphocytes % Monocytes % Eosinophils % Basophils % Absolute Neutrophils Absolute Lymphocytes Absolute Monocytes Absolute Eosinophils Absolute Basophils Carbonic Acid HCO3/H2CO3 Ratio ABG pH ABG pCO2 ABG pO2 ABG HCO3 ABG O2 Saturation ABG Base Excess FiO2 Sodium 143.3 Potassium 4.6 Chloride 107 Carbon Dioxide 24 Anion Gap 12 BUN 55 H Creatinine 1.68 H Est GFR ( Amer) 36 L Est GFR (Non-Af Amer) 30 L Glucose 70 L Calcium 7.9 L Total Bilirubin 0.2 AST 22 ALT 28 Alkaline Phosphatase 69 Total Protein 6.5 Albumin 3.0 L 10/30/17 10/30/17 10/30/17 19:56 19:56 19:56 Creatine Kinase 75 CK-MB (CK-2) 2.28 Troponin I 0.447 NT-Pro-B Natriuret Pep 60692 H 10/31/17 10/31/17 10/31/17 01:42 01:42 07:16 Creatine Kinase 55 46 CK-MB (CK-2) 2.30 Troponin I 0.430 NT-Pro-B Natriuret Pep 10/31/17 11/01/17 07:16 05:01 Creatine Kinase CK-MB (CK-2) 2.18 Troponin I 0.399 0.340 NT-Pro-B Natriuret Pep EKG Comments: Telemetry strips shows sinus rhythm. Occasional APCs and VPCs are noted. Impressions: PICC Line Insertion 10/31/17 00:00 IMPRESSION: SUCCESSFUL PLACEMENT OF A 5 FR DUAL LUMEN 46 CM PICC IN THE RIGHT BASILIC VEIN. Guidance Fluoroscopy 11/01/17 00:00 IMPRESSION: SUCCESSFUL PLACEMENT OF A 5 FR DUAL LUMEN 46 CM PICC IN THE RIGHT BASILIC VEIN. Interventional Vascular Procedure 11/01/17 00:00 IMPRESSION: SUCCESSFUL PLACEMENT OF A 5 FR DUAL LUMEN 46 CM PICC IN THE RIGHT BASILIC VEIN. Chest X-Ray 11/01/17 05:00 IMPRESSION: Collapse/ consolidation in the right middle lobe and left retrocardiac regions. Endotracheal and nasogastric tubes in good positioning Assessment & Plan - Diagnosis (1) Acute respiratory failure with hypoxia and hypercapnia Is this a current diagnosis for this admission?: Yes (2) Elevated troponin I level Is this a current diagnosis for this admission?: Yes (3) Morbid obesity Is this a current diagnosis for this admission?: Yes (4) Diabetes mellitus type 2 in obese Is this a current diagnosis for this admission?: Yes (5) CHF (congestive heart failure) Qualifiers: Heart failure type: right-sided Is this a current diagnosis for this admission?: Yes (6) CKD (chronic kidney disease), stage III Is this a current diagnosis for this admission?: Yes - Notes Notes: Acute respiratory failure with predominantly hypercarbia with some hypoxemia: Most likely related to severe obesity, obesity hypoventilation syndrome, aggravated by CHF and possibly underlying COPD. Recommend following pulmonary recommendations. Elevated troponin I level: Exact etiology not clear but could be related to respiratory failure secondary to severe hypercapnia, and some hypoxemia. Will recommend repeating EKGs. Morbid obesity: Patient will benefit from gradual weight loss and can be handled as an outpatient. Diabetes: Patient being well managed by dispatcher radio. CHF: [place] to be combination of right heart failure and diastolic dysfunction. Feel that this is acute on chronic. Continue diuretic therapy. Chronic kidney disease: Currently stable. - Time Time with patient: Greater than 35 minutes - More than 50% of the time spent coordinating care, discussing management plans with involved caregivers. Management plans discussed with involved personnels. Medical decision making was of moderate to high complexity, patient's has multiple comorbidities.
[2017-11-01] MEDS: LEVOFLOXACIN 750 MG/D5W RTU 750 MG/150 ML RTUPB IV SCH (17:42)
[2017-11-01] MEDS ORDERED: CLONAZEPAM 1 MG TABLET NG PRN (19:15)
[2017-11-01] MEDS ORDERED: METHYLPREDNISOLONE INJ 40 MG/1 ML SDV IV ONE (20:00)
--- NOTE | 2017-11-01 20:33 | PDOC PROGRESS REPORT ---
Subjective Progress Note for:: 11/01/17 Subjective:: Patient remain intubated and sedated Reason For Visit: ACUTE RESPIRATORY FAILURE WITH HYPERCAPNIA, Physical Exam Vital Signs: Temp Pulse Resp BP Pulse Ox 98.8 F 88 20 138/68 H 96 11/01/17 18:46 11/01/17 13:49 11/01/17 18:46 11/01/17 18:46 11/01/17 18:46 Intake & Output 10/31/17 11/01/17 11/02/17 06:59 06:59 06:59 Intake Total 1211 3491 2347 Output Total 240 2615 3425 Balance 971 876 -1078 Weight 195 kg 194.6 kg Eye exam: PRESENT: PERRLA Respiratory exam: PRESENT: clear to auscultation kurt Cardiovascular exam: PRESENT: +S1, +S2 GI/Abdominal exam: PRESENT: soft Results Laboratory Results: 11/01/17 05:01 11/01/17 05:01 11/01/17 11/01/17 11/01/17 04:45 05:01 05:01 WBC 12.0 H RBC 3.83 Hgb 9.8 L Hct 30.6 L MCV 80 MCH 25.7 L MCHC 32.2 RDW 17.8 H Plt Count 239 Seg Neutrophils % 72.2 Lymphocytes % 21.0 Monocytes % 5.4 Eosinophils % 1.0 Basophils % 0.4 Absolute Neutrophils 8.6 H Absolute Lymphocytes 2.5 Absolute Monocytes 0.6 Absolute Eosinophils 0.1 Absolute Basophils 0.1 Carbonic Acid 1.51 H HCO3/H2CO3 Ratio 16:1 ABG pH 7.32 L ABG pCO2 50.0 H ABG pO2 110.0 H ABG HCO3 25.4 ABG O2 Saturation 97.6 ABG Base Excess -1.0 FiO2 50% Sodium 143.3 Potassium 4.6 Chloride 107 Carbon Dioxide 24 Anion Gap 12 BUN 55 H Creatinine 1.68 H Est GFR ( Amer) 36 L Est GFR (Non-Af Amer) 30 L Glucose 70 L Calcium 7.9 L Total Bilirubin 0.2 AST 22 ALT 28 Alkaline Phosphatase 69 Total Protein 6.5 Albumin 3.0 L 10/30/17 10/30/17 10/30/17 19:56 19:56 19:56 Creatine Kinase 75 CK-MB (CK-2) 2.28 Troponin I 0.447 NT-Pro-B Natriuret Pep 28669 H 10/31/17 10/31/17 10/31/17 01:42 01:42 07:16 Creatine Kinase 55 46 CK-MB (CK-2) 2.30 Troponin I 0.430 NT-Pro-B Natriuret Pep 10/31/17 11/01/17 07:16 05:01 Creatine Kinase CK-MB (CK-2) 2.18 Troponin I 0.399 0.340 NT-Pro-B Natriuret Pep Impressions: PICC Line Insertion 10/31/17 00:00 IMPRESSION: SUCCESSFUL PLACEMENT OF A 5 FR DUAL LUMEN 46 CM PICC IN THE RIGHT BASILIC VEIN. Guidance Fluoroscopy 11/01/17 00:00 IMPRESSION: SUCCESSFUL PLACEMENT OF A 5 FR DUAL LUMEN 46 CM PICC IN THE RIGHT BASILIC VEIN. Interventional Vascular Procedure 11/01/17 00:00 IMPRESSION: SUCCESSFUL PLACEMENT OF A 5 FR DUAL LUMEN 46 CM PICC IN THE RIGHT BASILIC VEIN. Chest X-Ray 11/01/17 05:00 IMPRESSION: Collapse/ consolidation in the right middle lobe and left retrocardiac regions. Endotracheal and nasogastric tubes in good positioning Assessment & Plan - Diagnosis (1) Acute respiratory failure with hypoxia and hypercapnia Is this a current diagnosis for this admission?: Yes Plan: Pulmonary following the patient (2) Acute diastolic (congestive) heart failure Is this a current diagnosis for this admission?: Yes (3) Morbid obesity with BMI of 70 and over, adult Is this a current diagnosis for this admission?: Yes (4) Obesity hypoventilation syndrome Is this a current diagnosis for this admission?: Yes (5) Elevated troponin Is this a current diagnosis for this admission?: Yes (6) Right middle lobe pneumonia Qualifiers: Pneumonia type: due to unspecified organism Qualified Code(s): J18.1 - Lobar pneumonia, unspecified organism Is this a current diagnosis for this admission?: Yes Plan: The patient on IV antibiotic,
--- NOTE | 2017-11-01 21:01 | PROGRESS NOTE E ---
Progress Note NAME: SERINA LEE : 1945 AGE: 71Y DATE: 11/01/2017 ROOM: 603 SUBJECTIVE: Patient is a 71-year-old female who came in for acute respiratory failure requiring invasive mechanical ventilation, pulmonary edema bilateral, pneumonia, asthma/COPD exacerbation. Currently has been stable for the last 24 hours. Blood pressure has been better. Dobutamine has been discontinued. Patient is on IV sedation. Patient tolerated the OG tube feeding of 20 mL per hour. There is still a moderate amount of endotracheal tube secretions requiring endotracheal tube suctioning every 2 hours. Patient tolerated the OG tube feeding. No vomiting noted. No diarrhea. No fever spikes. OBJECTIVE: GENERAL: Patient is sedated, afebrile, not in acute respiratory distress. VITAL SIGNS: Blood pressure of 138/68, temperature 98.8 with a T-max of 98.8, pulse rate 92, respirations 20, saturation is 96% on FiO2 of 40%, pressure support of 10 above PEEP and PEEP of 10, tidal volume of 400 mL. EYES: No jaundice or pallor. EARS, NOSE AND THROAT: No ear drainage noted. No nasal discharge. NECK: No spasm, no tenderness. CHEST AND LUNGS: Some wheezing on the left lung torre. Right lung field sound normal. No crackling sounds. Wheezing and rhonchi and fine rales bilateral. ABDOMEN: Flabby. Positive bowel sounds. Soft, nondistended. EXTREMITIES: No joint swelling. No cellulitis. LABORATORY DATA: CBC done today showed white count was slightly increaesd to 12; hemoglobin is 9.8; hematocrit 38.6. ABG done this morning at 4:45 a.m. showed pH of 7.32, pCO2 50, pO2 110, bicarb is 25.4, and saturation is 97%. Chemistry this morning showed sodium 143, potassium 4.6, chloride 107, CO2 24, BUN 55, creatinine 1.68, glucose 70, calcium 7.9, total protein 6.5. Troponin 0.34. Chest x-ray today showed moderate cardiomegaly, pulmonary infiltrate in the right lung field appeared to be improving, endotracheal tube is in place, and no pneumothorax. ASSESSMENT: 1. ACUTE RESPIRATORY FAILURE REQUIRING INVASIVE MECHANICAL VENTILATION. Patient not ready to extubated yet. 2. PULMONARY EDEMA/CONGESTIVE HEART FAILURE APPEARED TO BE IMPROVING AND STABLE. 3. COPD/ASTHMA, CURRENTLY STABLE WITH MILD EXACERBATION. PLAN AND RECOMMENDATIONS: 1. We will continue the DuoNeb nebulizer treatment every 6 hours. 2. We will give Solu-Medrol 40 mg IV q. 8. 3. Continue GI prophylaxis and DVT prophylaxis. 4. Continue to optimize ventilator support, nutritional support, and hemodynamic support. 5. Continue IV antibiotics. DICTATING PHYSICIAN: ADRIAN GROVES MD,YELENA,MPH [id number] 2009 PHY#: [id number] ID: [id number] JOB#: [id number] ACCT: [id number] cc: > MTDD
[2017-11-01] MEDS: PANTOPRAZOLE SODIUM 40 MG VIAL IV SCH (21:18)
[2017-11-02] MEDS: PROPOFOL 1,000 MG/100 ML INFUS..BTL IV PRN ×12 (00:37→23:01)
[2017-11-02] MEDS: NYSTATIN TOPICAL POWDER 15 GM TP SCH ×6 (02:01→21:25)
[2017-11-02] MEDS: IPRATROPIUM/ALBUTEROL 0.5-2.5 MG/3 ML AMPUL NEB SCH ×4 (02:05→20:17)
[2017-11-02] MEDS: NORMAL SALINE 1000 ML 1,000 ML IV PRN ×2 (04:46→14:32)
[2017-11-02] MEDS: METHYLPREDNISOLONE INJ 40 MG/1 ML SDV IV SCH ×3 (05:46→21:23)
[2017-11-02 06:16] LABS: ABSOLUTE LYMPHOCYTES (AUTO) 0.6 10^3/uL (0.5-4.7); ABSOLUTE MONOCYTES (AUTO) 0.1 10^3/uL (0.1-1.4); ABSOLUTE NEUT (AUTO) 6.9 10^3/uL (1.7-8.2); BASOPHILS % (AUTO) 0.2 % (0-2); HEMATOCRIT 32.2 % (36.0-47.0); HEMOGLOBIN 10.3 g/dL (12.0-15.5); LYMPHOCYTES % (AUTO) 7.3 % (13-45); MEAN CORPUSCULAR HEMOGLOBIN 25.5 pg (27.0-33.4); MEAN CORPUSCULAR HGB CONC 31.9 g/dL (32.0-36.0); MEAN CORPUSCULAR VOLUME 80 fl (80-97); MONOCYTES % (AUTO) 1.9 % (3-13); PLATELET COUNT 221 10^3/uL (150-450); RED BLOOD COUNT 4.03 10^6/uL (3.72-5.28); RED CELL DISTRIBUTION WIDTH 17.8 % (11.5-14.0); SEGMENTED NEUTROPHILS % (AUTO) 90.6 % (42-78); TOTAL CELLS COUNTED % (AUTO) 100 %; WHITE BLOOD COUNT 7.6 10^3/uL (4.0-10.5)
[2017-11-02 06:28] LABS: INTERNATIONAL RATION (INR) 1.15; PROTHROMBIN TIME 15.3 SEC (11.4-15.4)
[2017-11-02 06:35] LABS: ALANINE AMINOTRANSFERASE 33 U/L (9-52); ALBUMIN 3.2 g/dL (3.5-5.0); ALKALINE PHOSPHATASE 77 U/L (38-126); ANION GAP 13 (5-19); ASPARTATE AMINO TRANSFERASE 22 U/L (14-36); BILIRUBIN,DIRECT 0.3 mg/dL (0.0-0.4); BILIRUBIN,TOTAL 0.3 mg/dL (0.2-1.3); BLOOD UREA NITROGEN 42 mg/dL (7-20); CALCIUM 7.8 mg/dL (8.4-10.2); CARBON DIOXIDE 25 mmol/L (22-30); CHLORIDE 105 mmol/L (98-107); GLUCOSE 190 mg/dL (75-110); POTASSIUM 5.2 mmol/L (3.6-5.0); SODIUM 142.5 mmol/L (137-145); TOTAL PROTEIN 6.5 g/dL (6.3-8.2)
[2017-11-02 08:53] LABS: ARTERIAL BLOOD BASE EXCESS 0.6 mmol/L; ARTERIAL BLOOD H2CO3 1.64 mmol/L (1.05-1.35); ARTERIAL BLOOD HCO3 27.5 mmol/L (20-26); ARTERIAL BLOOD O2 SATURATION 95.1 % (94-98); ARTERIAL BLOOD PCO2 54.5 mmHg (35-45); ARTERIAL BLOOD PH 7.32 (7.35-7.45); ARTERIAL BLOOD PO2 82.1 mmHg (80-100); ARTERIAL BLOOD TOTAL CO2 29.2 mmol/L (21-25)
[2017-11-02 08:54] LABS: ARTERIAL BLOOD FIO2 45%
--- NOTE | 2017-11-02 09:22 | EKG REPORT ---
SEVERITY:- ABNORMAL ECG - SINUS RHYTHM LEFT QRS AXIS PROBABLE INFERIOR INFARCT, AGE INDETERMINATE ABNRM R PROG, CONSIDER ASMI OR LEAD PLACEMENT LATERAL LEADS ARE ALSO INVOLVED PROLONGED QT INTERVAL : Confirmed by: Grazyna Herrera 02-Nov-2017 09:20:32
[2017-11-02] MEDS: FUROSEMIDE INJ/PF 40 MG/4 ML SDV IV SCH (10:17)
[2017-11-02] MEDS: ENOXAPARIN SODIUM INJ 40 MG/0.4 ML DISP.SYRIN SUBCUT SCH (10:18)
[2017-11-02] MEDS ORDERED: DEXTROSE 50%-WATER SYRINGE 25 GM/50 ML DOSE IV PRN (13:40)
[2017-11-02] MEDS ORDERED: DEXTROSE 50%-WATER SYRINGE 12.5 GM/25 ML DOSE IV PRN (13:40)
[2017-11-02] MEDS ORDERED: NORMAL SALINE 10 ML SDV (AFTER EACH USE) IV PRN (13:40)
[2017-11-02] MEDS ORDERED: DEXTROSE 40% GEL 15 GM TUBE PO PRN (13:40)
[2017-11-02] MEDS ORDERED: DEXTROSE 40% GEL 15 GM TUBE X 2 PO PRN (13:40)
[2017-11-02] MEDS ORDERED: GLUCAGON,HUMAN RECOMB 1 MG INJ IM PRN (13:40)
--- NOTE | 2017-11-02 15:48 | PDOC PROGRESS REPORT ---
Subjective Progress Note for:: 11/02/17 Subjective:: Patient remained intubated on mechanical ventilation Reason For Visit: ACUTE RESPIRATORY FAILURE WITH HYPERCAPNIA, Physical Exam Vital Signs: Temp Pulse Resp BP Pulse Ox 97.9 F 57 L 20 129/69 H 93 11/02/17 14:00 11/02/17 14:11 11/02/17 14:11 11/02/17 13:46 11/02/17 14:11 Intake & Output 11/01/17 11/02/17 11/03/17 06:59 06:59 06:59 Intake Total 3491 4801 Output Total 2616 4160 2454 Balance 246 -6575 -1250 Weight 194.6 kg 183.8 kg 183.8 kg Respiratory exam: PRESENT: other - Auscultation demonstrated equal air entry in both lung torre Cardiovascular exam: PRESENT: +S1, +S2 GI/Abdominal exam: PRESENT: soft Results Laboratory Results: 11/02/17 05:40 11/02/17 05:40 11/02/17 11/02/17 11/02/17 05:40 05:40 08:35 WBC 7.6 RBC 4.03 Hgb 10.3 L Hct 32.2 L MCV 80 MCH 25.5 L MCHC 31.9 L RDW 17.8 H Plt Count 221 Seg Neutrophils % 90.6 H Lymphocytes % 7.3 L Monocytes % 1.9 L Eosinophils % 0.0 Basophils % 0.2 Absolute Neutrophils 6.9 Absolute Lymphocytes 0.6 Absolute Monocytes 0.1 Absolute Eosinophils 0.0 Absolute Basophils 0.0 Carbonic Acid 1.64 H HCO3/H2CO3 Ratio 16:1 ABG pH 7.32 L ABG pCO2 54.5 H ABG pO2 82.1 ABG HCO3 27.5 H ABG O2 Saturation 95.1 ABG Base Excess 0.6 FiO2 45% Sodium 142.5 Potassium 5.2 H Chloride 105 Carbon Dioxide 25 Anion Gap 13 BUN 42 H Creatinine 1.31 H Est GFR ( Amer) 48 L Est GFR (Non-Af Amer) 40 L Glucose 190 H Calcium 7.8 L Total Bilirubin 0.3 AST 22 ALT 33 Alkaline Phosphatase 77 Total Protein 6.5 Albumin 3.2 L 10/30/17 23:40 Tracheal Aspirate Gram Stain - Final 10/30/17 23:40 Tracheal Aspirate Sputum Culture - Final NORMAL JARRETT 10/30/17 23:40 Catheterized Urine Urine Culture - Final Escherichia Coli 10/30/17 10/30/17 10/30/17 19:56 19:56 19:56 Creatine Kinase 75 CK-MB (CK-2) 2.28 Troponin I 0.447 NT-Pro-B Natriuret Pep 01465 H 10/31/17 10/31/17 10/31/17 01:42 01:42 07:16 Creatine Kinase 55 46 CK-MB (CK-2) 2.30 Troponin I 0.430 NT-Pro-B Natriuret Pep 10/31/17 11/01/17 07:16 05:01 Creatine Kinase CK-MB (CK-2) 2.18 Troponin I 0.399 0.340 NT-Pro-B Natriuret Pep Impressions: PICC Line Insertion 10/31/17 00:00 IMPRESSION: SUCCESSFUL PLACEMENT OF A 5 FR DUAL LUMEN 46 CM PICC IN THE RIGHT BASILIC VEIN. Guidance Fluoroscopy 11/01/17 00:00 IMPRESSION: SUCCESSFUL PLACEMENT OF A 5 FR DUAL LUMEN 46 CM PICC IN THE RIGHT BASILIC VEIN. Interventional Vascular Procedure 11/01/17 00:00 IMPRESSION: SUCCESSFUL PLACEMENT OF A 5 FR DUAL LUMEN 46 CM PICC IN THE RIGHT BASILIC VEIN. Chest X-Ray 11/01/17 05:00 IMPRESSION: Collapse/ consolidation in the right middle lobe and left retrocardiac regions. Endotracheal and nasogastric tubes in good positioning Assessment & Plan - Diagnosis (1) Acute respiratory failure with hypoxia and hypercapnia Is this a current diagnosis for this admission?: Yes (2) Acute diastolic (congestive) heart failure Is this a current diagnosis for this admission?: Yes (3) Morbid obesity with BMI of 70 and over, adult Is this a current diagnosis for this admission?: Yes (4) Obesity hypoventilation syndrome Is this a current diagnosis for this admission?: Yes (5) Elevated troponin Is this a current diagnosis for this admission?: Yes (6) Chronic venous hypertension (idiopathic) with ulcer and inflammation of bilateral lower extremity Is this a current diagnosis for this admission?: Yes (7) Right middle lobe pneumonia Qualifiers: Pneumonia type: due to unspecified organism Qualified Code(s): J18.1 - Lobar pneumonia, unspecified organism Is this a current diagnosis for this admission?: Yes
[2017-11-02] MEDS: MORPHINE SULFATE 10 MG/ML INJ IV PRN (15:49)
[2017-11-02 16:25] LABS: ARTERIAL BLOOD BASE EXCESS 1.4 mmol/L; ARTERIAL BLOOD H2CO3 1.48 mmol/L (1.05-1.35); ARTERIAL BLOOD HCO3 27.4 mmol/L (20-26); ARTERIAL BLOOD O2 SATURATION 92.8 % (94-98); ARTERIAL BLOOD PCO2 49.2 mmHg (35-45); ARTERIAL BLOOD PH 7.36 (7.35-7.45); ARTERIAL BLOOD PO2 67.9 mmHg (80-100); ARTERIAL BLOOD TOTAL CO2 28.9 mmol/L (21-25)
[2017-11-02 16:26] LABS: ARTERIAL BLOOD FIO2 35%
[2017-11-02] MEDS ORDERED: LEVOTHYROXINE SODIUM 0.075 MG TABLET PO ONE (16:30)
[2017-11-02] MEDS ORDERED: SERTRALINE HCL 50 MG TABLET PO ONE (16:30)
[2017-11-02] MEDS: GABAPENTIN 400 MG CAPSULE PO SCH (17:56)
[2017-11-02] MEDS: LEVOFLOXACIN 750 MG/D5W RTU 750 MG/150 ML RTUPB IV SCH (17:56)
[2017-11-02] MEDS: INSULIN LISPRO 100 UNIT/ML 3 ML VIAL SUBCUT PRN (18:52)
[2017-11-02] MEDS: NORMAL SALINE 10 ML SDV (SCHEDULED) IV SCH (21:19)
[2017-11-02] MEDS: CLONAZEPAM 1 MG TABLET NG SCH (21:23)
[2017-11-02] MEDS: PANTOPRAZOLE SODIUM 40 MG VIAL IV SCH (21:24)
[2017-11-02] MEDS: ATORVASTATIN CALCIUM 10 MG TABLET PO SCH (21:24)
[2017-11-03] MEDS: IPRATROPIUM/ALBUTEROL 0.5-2.5 MG/3 ML AMPUL NEB SCH ×4 (02:18→20:18)
[2017-11-03] MEDS: NYSTATIN TOPICAL POWDER 15 GM TP SCH ×6 (02:19→22:17)
[2017-11-03] MEDS: PROPOFOL 1,000 MG/100 ML INFUS..BTL IV PRN ×9 (02:19→22:48)
[2017-11-03] MEDS: NORMAL SALINE 1000 ML 1,000 ML IV PRN ×3 (02:20→22:24)
[2017-11-03] MEDS: MORPHINE SULFATE 10 MG/ML INJ IV PRN ×3 (04:46→17:48)
[2017-11-03] MEDS: LEVOTHYROXINE SODIUM 0.075 MG TABLET PO SCH (05:24)
[2017-11-03] MEDS ORDERED: GABAPENTIN 400 MG CAPSULE ONE (05:25)
[2017-11-03] MEDS: METHYLPREDNISOLONE INJ 40 MG/1 ML SDV IV SCH ×3 (05:25→22:16)
[2017-11-03] MEDS: GABAPENTIN 400 MG CAPSULE PO SCH ×2 (05:37→17:46)
[2017-11-03 05:42] LABS: ANION GAP 13 (5-19); ARTERIAL BLOOD BASE EXCESS 2.2 mmol/L; ARTERIAL BLOOD H2CO3 1.41 mmol/L (1.05-1.35); ARTERIAL BLOOD HCO3 27.7 mmol/L (20-26); ARTERIAL BLOOD O2 SATURATION 92.2 % (94-98); ARTERIAL BLOOD PH 7.39 (7.35-7.45); ARTERIAL BLOOD PO2 64.5 mmHg (80-100); ARTERIAL BLOOD TOTAL CO2 29.1 mmol/L (21-25); BLOOD UREA NITROGEN 37 mg/dL (7-20); CARBON DIOXIDE 26 mmol/L (22-30); CHLORIDE 104 mmol/L (98-107); GLUCOSE 191 mg/dL (75-110); POTASSIUM 4.9 mmol/L (3.6-5.0); SODIUM 142.5 mmol/L (137-145)
[2017-11-03 05:44] LABS: ABSOLUTE LYMPHOCYTES (AUTO) 0.7 10^3/uL (0.5-4.7); ABSOLUTE MONOCYTES (AUTO) 0.3 10^3/uL (0.1-1.4); ABSOLUTE NEUT (AUTO) 6.7 10^3/uL (1.7-8.2); BASOPHILS % (AUTO) 0.2 % (0-2); EOSINOPHILS % (AUTO) 0.1 % (0-6); HEMATOCRIT 32.8 % (36.0-47.0); HEMOGLOBIN 10.5 g/dL (12.0-15.5); LYMPHOCYTES % (AUTO) 9.5 % (13-45); MEAN CORPUSCULAR HEMOGLOBIN 25.5 pg (27.0-33.4); MEAN CORPUSCULAR HGB CONC 32.1 g/dL (32.0-36.0); MEAN CORPUSCULAR VOLUME 80 fl (80-97); MONOCYTES % (AUTO) 3.9 % (3-13); PLATELET COUNT 227 10^3/uL (150-450); RED BLOOD COUNT 4.13 10^6/uL (3.72-5.28); RED CELL DISTRIBUTION WIDTH 17.6 % (11.5-14.0); SEGMENTED NEUTROPHILS % (AUTO) 86.3 % (42-78); TOTAL CELLS COUNTED % (AUTO) 100 %; WHITE BLOOD COUNT 7.8 10^3/uL (4.0-10.5)
[2017-11-03 06:06] LABS: ARTERIAL BLOOD FIO2 35%
--- NOTE | 2017-11-03 07:47 | PDOC CONSULTATION ---
Consultation Consult Date: 11/03/17 Consult reason:: chronic ulcer left lower leg History of Present Illness Admission Date/PCP: 10/30/17 19:20 AYALA FARIAS MD History of Present Illness: SERINA LEE is a 71 year old female who is intubated for respiratory failure. Has a chronic wound left lower leg.Patient is morbidly obese. I believe i saw this patient in the past for chronic leg wounds and referred to the wound care center. Past Medical History Cardiac Medical History: Reports: Congestive Heart Failure, Hyperlipidema, Hypertension, Peripheral Vascular Disease Denies: DVT, Myocardial Infarction, Pulmonary Embolism Pulmonary Medical History: Reports: Sleep Apnea Denies: Asthma, Chronic Obstructive Pulmonary Disease (COPD) Neurological Medical History: Denies: Seizures Endocrine Medical History: Reports: Diabetes Mellitus Type 2 Denies: Diabetes Mellitus Type 1, Hyperthyroidism, Hypothyroidism GI Medical History: Reports: Gastroesophageal Reflux Disease - Distant history of same; no recent symptoms. Denies: Cirrhosis, Hepatitis Musculoskeltal Medical History: Reports: Arthritis Psychiatric Medical History: Reports: Depression - Denies suicidal or homicidal ideation. 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 Denies: Clostridium Difficile Past Surgical History Past Surgical History: Reports: Orthopedic Surgery, Other - Wound debridement Social History Smoking Status: Never Smoker Frequency of Alcohol Use: None Hx Recreational Drug Use: No Drugs: None Hx Prescription Drug Abuse: No Family History Family History: CAD, Malignancy Parental Family History Reviewed: Yes Children Family History Reviewed: No Sibling(s) Family History Reviewed.: No Medication/Allergy Home Medications: Atorvastatin Calcium [Lipitor 10 mg Tablet] 10 mg PO QHS 10/31/17 Ergocalciferol (Vitamin D2) [Drisdol 50,000 unit (1.25MG) Capsule] 50,000 unit PO SEGURA@1000 10/31/17 Gabapentin [Neurontin 400 mg Capsule] 800 mg PO BID 10/31/17 Glimepiride [Amaryl] 2 mg PO QAM 10/31/17 Levothyroxine Sodium [Synthroid 0.075 mg Tablet] 0.075 mg PO Q6AM 10/31/17 Lisinopril/Hydrochlorothiazide [Zestoretic 20-25 mg Tablet] 1 tab PO DAILY 10/31 Sertraline HCl [Zoloft] 100 mg PO DAILY 07/16/18 Allergies/Adverse Reactions: adhesive [Adhesive] Allergy (Verified 01/19/17 13:11) No Known Drug Allergies Allergy (Verified 01/19/17 13:11) Review of Systems ROS unobtainable: Due to endotracheal tube Physical Exam Vital Signs: Temp Pulse Resp BP Pulse Ox 97.0 F 68 20 123/63 95 11/03/17 06:00 11/03/17 02:18 11/03/17 06:00 11/03/17 05:40 11/03/17 06:00 Intake & Output 11/02/17 11/03/17 11/04/17 06:59 06:59 06:59 Intake Total 4801 3759 Output Total 6190 4200 Balance -1349 -441 Weight 183.8 kg 193.2 kg Exam: Left lower leg with a 9x12 cm ulcer looks clean with no obvious infection.No abscess and no further need for debridement.Level at dermis and would classify as stage 2 decubitus. Results Laboratory Results: 11/03/17 03:50 11/03/17 03:50 11/02/17 11/02/17 11/03/17 08:35 16:14 03:50 WBC RBC Hgb Hct MCV MCH MCHC RDW Plt Count Seg Neutrophils % Lymphocytes % Monocytes % Eosinophils % Basophils % Absolute Neutrophils Absolute Lymphocytes Absolute Monocytes Absolute Eosinophils Absolute Basophils Carbonic Acid 1.64 H 1.48 H 1.41 H HCO3/H2CO3 Ratio 16:1 18:1 19:1 ABG pH 7.32 L 7.36 7.39 ABG pCO2 54.5 H 49.2 H 47.0 H ABG pO2 82.1 67.9 L 64.5 L ABG HCO3 27.5 H 27.4 H 27.7 H ABG O2 Saturation 95.1 92.8 L 92.2 L ABG Base Excess 0.6 1.4 2.2 FiO2 45% 35% 35% Sodium Potassium Chloride Carbon Dioxide Anion Gap BUN Creatinine Est GFR ( Amer) Est GFR (Non-Af Amer) Glucose Calcium 11/03/17 11/03/17 03:50 03:50 WBC 7.8 RBC 4.13 Hgb 10.5 L Hct 32.8 L MCV 80 MCH 25.5 L MCHC 32.1 RDW 17.6 H Plt Count 227 Seg Neutrophils % 86.3 H Lymphocytes % 9.5 L Monocytes % 3.9 Eosinophils % 0.1 Basophils % 0.2 Absolute Neutrophils 6.7 Absolute Lymphocytes 0.7 Absolute Monocytes 0.3 Absolute Eosinophils 0.0 Absolute Basophils 0.0 Carbonic Acid HCO3/H2CO3 Ratio ABG pH ABG pCO2 ABG pO2 ABG HCO3 ABG O2 Saturation ABG Base Excess FiO2 Sodium 142.5 Potassium 4.9 Chloride 104 Carbon Dioxide 26 Anion Gap 13 BUN 37 H Creatinine 1.16 Est GFR ( Amer) 56 L Est GFR (Non-Af Amer) 46 L Glucose 191 H Calcium 8.0 L 10/30/17 23:40 Tracheal Aspirate Gram Stain - Final 10/30/17 23:40 Tracheal Aspirate Sputum Culture - Final NORMAL JARRETT 10/30/17 23:40 Catheterized Urine Urine Culture - Final Escherichia Coli 10/30/17 10/30/17 10/30/17 19:56 19:56 19:56 Creatine Kinase 75 CK-MB (CK-2) 2.28 Troponin I 0.447 NT-Pro-B Natriuret Pep 89927 H 10/31/17 10/31/17 10/31/17 01:42 01:42 07:16 Creatine Kinase 55 46 CK-MB (CK-2) 2.30 Troponin I 0.430 NT-Pro-B Natriuret Pep 10/31/17 11/01/17 07:16 05:01 Creatine Kinase CK-MB (CK-2) 2.18 Troponin I 0.399 0.340 NT-Pro-B Natriuret Pep Impressions: PICC Line Insertion 10/31/17 00:00 IMPRESSION: SUCCESSFUL PLACEMENT OF A 5 FR DUAL LUMEN 46 CM PICC IN THE RIGHT BASILIC VEIN. Guidance Fluoroscopy 11/01/17 00:00 IMPRESSION: SUCCESSFUL PLACEMENT OF A 5 FR DUAL LUMEN 46 CM PICC IN THE RIGHT BASILIC VEIN. Interventional Vascular Procedure 11/01/17 00:00 IMPRESSION: SUCCESSFUL PLACEMENT OF A 5 FR DUAL LUMEN 46 CM PICC IN THE RIGHT BASILIC VEIN. Assessment & Plan - Time Time Spent: 30 to 50 Minutes - Plan Summary Plan Summary: Continue with 1 layer of xeroform and wrapped with kerlix and Coban q 12 hrs. Continue follow up at the [facility] when discharged Appears to have a more prolonged intubation because of patient being mrbidly obese and sleep apnea
--- NOTE | 2017-11-03 07:59 | RADIOLOGY REPORT (SQ) ---
EXAM DESCRIPTION: CHEST SINGLE VIEW COMPLETED DATE/TIME: 11/03/2017 6:20 am REASON FOR STUDY: on ventilator COMPARISON: 10/30/2017, 11/01/2017 EXAM PARAMETERS: NUMBER OF VIEWS: One view. TECHNIQUE: Single frontal radiographic view of the chest acquired. RADIATION DOSE: NA LIMITATIONS: None. FINDINGS: LUNGS AND PLEURA: Left lower lobe collapse and consolidation is present with loss of the d iscrete left hemidiaphragm and retrocardiac air bronchograms. This is stable. Partial collapse right middle or lower lobe with bandlike density just above the right hemidiaphragm unchanged. No gross pleural effusion or pneumothorax. MEDIASTINUM AND HILAR STRUCTURES: No masses. Contour normal. HEART AND VASCULAR STRUCTURES: Stable cardiomegaly BONES: No acute findings. HARDWARE: Endotracheal tube tip 3 cm above the marcia. Nasogastric tube tip and side port below the hemidiaphragms. Right PICC line tip superior vena cava. OTHER: No other significant finding. IMPRESSION: No change in bibasilar airspace disease left greater than right. Tubes and lines in goo d positioning. TECHNICAL DOCUMENTATION: JOB ID: [id number] [employer]- All Rights Reserved Reading location - IP/workstation name: [facility] [email or web address]
[2017-11-03] MEDS: FUROSEMIDE INJ/PF 40 MG/4 ML SDV IV SCH (09:24)
[2017-11-03] MEDS: CLONAZEPAM 1 MG TABLET NG SCH ×2 (09:25→22:14)
[2017-11-03] MEDS: SERTRALINE HCL 50 MG TABLET PO SCH (09:26)
[2017-11-03] MEDS: NORMAL SALINE 10 ML SDV (SCHEDULED) IV SCH ×2 (09:27→22:18)
[2017-11-03] MEDS: ENOXAPARIN SODIUM INJ 40 MG/0.4 ML DISP.SYRIN SUBCUT SCH (09:28)
[2017-11-03 10:43] LABS: ARTERIAL BLOOD BASE EXCESS -0.3 mmol/L; ARTERIAL BLOOD FIO2 40%; ARTERIAL BLOOD H2CO3 2.01 mmol/L (1.05-1.35); ARTERIAL BLOOD HCO3 28.4 mmol/L (20-26); ARTERIAL BLOOD PCO2 66.8 mmHg (35-45); ARTERIAL BLOOD PH 7.25 (7.35-7.45); ARTERIAL BLOOD PO2 96.4 mmHg (80-100); ARTERIAL BLOOD TOTAL CO2 30.4 mmol/L (21-25)
--- NOTE | 2017-11-03 11:36 | PROGRESS NOTE E ---
Progress Note NAME: SERINA LEE : 1945 AGE: 71Y DATE: 11/02/2017 ROOM: 603 SUBJECTIVE: The patient is a 71-year-old female who came in with acute respiratory failure, requiring invasive mechanical ventilation. The patient has pulmonary edema, pneumonia right lower lobe most likely, morbid obesity, obesity hypoventilation syndrome, chronic respiratory failure/insufficiency. The patient has been stable over the last 24 hours. Had a drop in oxygen saturation earlier today requiring increase in tidal volume and suctioning. The patient's oxygenation improved. Had been saturating about 97% over the last 3 to 4 hours on SIMV rate of 20, tidal volume 415, FiO2 of 35%, pressure support of 10 above PEEP, and PEEP of about 10. Decreased the PEEP to 8 earlier today, and the patient's saturation remained around 97%. Blood pressure has been stable. The patient is tolerating OG tube feeding well at 30 mL per hour. The patient is on propofol at rate of 40. The patient currently is not on vasopressors. There is no diarrhea or vomiting noted. OBJECTIVE: GENERAL: The patient appears sedated. Afebrile. Not in acute respiratory distress. VITAL SIGNS: Temperature 96.8 and T-max of 98.1. Heart rate 74, blood pressure 115/69, respirations 20, saturations 97% on FiO2 of 35%, SIMV rate of 20, tidal volume 415, pressure support of 10, and PEEP of 8. HEENT: Eyes: No conjunctival pallor. Ears, nose, and throat: No ear drainage or nasal discharge. Orogastric tube is in place. CHEST/LUNGS: Rhonchi bilaterally. The patient is currently on DuoNeb nebulizer treatment every 6 hours and as needed between respiratory therapies. CARDIAC: S1, S2 distant. Regular rate. ABDOMEN: Flabby, positive bowel sounds, soft and nondistended. EXTREMITIES: No joint swelling. Erythema and swelling noted in the left lower extremity. LABORATORY: CBC done today showed white count of 7.6[place] [address]. Hemoglobin is 10.3, hematocrit 32.4, and platelet count is 221. Blood gases: pH 7.36, pCO2 is 49.2, pO2 is 69.9. ABG oxygen saturation 92.8. Chemistry done today shows sodium 144, potassium 5.2, chloride 105, CO2 of 25, BUN 42, creatinine 1.31, glucose 119. Calcium 7.8. Albumin 3.2. Total protein 6.5. No chest x-ray today. ASSESSMENT/PLAN: 1. ACUTE RESPIRATORY FAILURE REQUIRING INVASIVE MECHANICAL VENTILATION. Currently stable. Appears to be improving. There are still a lot of endotracheal tube secretions. The patient may require tracheostomy eventually because of chronic respiratory failure, morbid obesity, and most likely obesity hypoventilation syndrome. Will reevaluate. If no tracheostomy , the patient may require high pressure setting on BiPAP therapy or BiPAP AVAPS. 2. CONTINUE ANTIBIOTICS. Will do CBC, chemistry, ABG, and chest x-ray tomorrow. Optimize OG tube feedings and ventilator support. Will do sedation vacation every morning. DICTATING PHYSICIAN: ADRIAN GROVES MD,YELENA,MPH [id number] [id number] PHY#: [id number] ID: [id number] JOB#: [id number] ACCT: [id number] cc: > MTDD
[2017-11-03] MEDS: LEVOFLOXACIN 750 MG/D5W RTU 750 MG/150 ML RTUPB IV SCH (17:46)
--- NOTE | 2017-11-03 17:56 | PDOC PROGRESS REPORT ---
Subjective Progress Note for:: 11/03/17 Subjective:: Patient is seen by the bedside, intubated on mechanical ventilation Reason For Visit: ACUTE RESPIRATORY FAILURE WITH HYPERCAPNIA, Physical Exam Vital Signs: Temp Pulse Resp BP Pulse Ox 97.7 F 64 16 115/101 H 96 11/03/17 15:15 11/03/17 14:05 11/03/17 15:15 11/03/17 15:10 11/03/17 16:20 Intake & Output 11/02/17 11/03/17 11/04/17 06:59 06:59 06:59 Intake Total 4801 3759 Output Total 6181 4200 1800 Balance -1349 -441 -1800 Weight 183.8 kg 193.2 kg Respiratory exam: PRESENT: clear to auscultation kurt Cardiovascular exam: PRESENT: +S1, +S2 GI/Abdominal exam: PRESENT: soft Results Laboratory Results: 11/03/17 03:50 11/03/17 03:50 11/03/17 11/03/17 11/03/17 03:50 03:50 03:50 WBC 7.8 RBC 4.13 Hgb 10.5 L Hct 32.8 L MCV 80 MCH 25.5 L MCHC 32.1 RDW 17.6 H Plt Count 227 Seg Neutrophils % 86.3 H Lymphocytes % 9.5 L Monocytes % 3.9 Eosinophils % 0.1 Basophils % 0.2 Absolute Neutrophils 6.7 Absolute Lymphocytes 0.7 Absolute Monocytes 0.3 Absolute Eosinophils 0.0 Absolute Basophils 0.0 Carbonic Acid 1.41 H HCO3/H2CO3 Ratio 19:1 ABG pH 7.39 ABG pCO2 47.0 H ABG pO2 64.5 L ABG HCO3 27.7 H ABG O2 Saturation 92.2 L ABG Base Excess 2.2 FiO2 35% Sodium 142.5 Potassium 4.9 Chloride 104 Carbon Dioxide 26 Anion Gap 13 BUN 37 H Creatinine 1.16 Est GFR ( Amer) 56 L Est GFR (Non-Af Amer) 46 L Glucose 191 H Calcium 8.0 L 11/03/17 10:30 WBC RBC Hgb Hct MCV MCH MCHC RDW Plt Count Seg Neutrophils % Lymphocytes % Monocytes % Eosinophils % Basophils % Absolute Neutrophils Absolute Lymphocytes Absolute Monocytes Absolute Eosinophils Absolute Basophils Carbonic Acid 2.01 H HCO3/H2CO3 Ratio 14:1 ABG pH 7.25 L ABG pCO2 66.8 H ABG pO2 96.4 ABG HCO3 28.4 H ABG O2 Saturation 96.0 ABG Base Excess -0.3 FiO2 40% Sodium Potassium Chloride Carbon Dioxide Anion Gap BUN Creatinine Est GFR ( Amer) Est GFR (Non-Af Amer) Glucose Calcium 10/30/17 10/30/17 10/30/17 19:56 19:56 19:56 Creatine Kinase 75 CK-MB (CK-2) 2.28 Troponin I 0.447 NT-Pro-B Natriuret Pep 27840 H 10/31/17 10/31/17 10/31/17 01:42 01:42 07:16 Creatine Kinase 55 46 CK-MB (CK-2) 2.30 Troponin I 0.430 NT-Pro-B Natriuret Pep 10/31/17 11/01/17 07:16 05:01 Creatine Kinase CK-MB (CK-2) 2.18 Troponin I 0.399 0.340 NT-Pro-B Natriuret Pep Impressions: PICC Line Insertion 10/31/17 00:00 IMPRESSION: SUCCESSFUL PLACEMENT OF A 5 FR DUAL LUMEN 46 CM PICC IN THE RIGHT BASILIC VEIN. Guidance Fluoroscopy 11/01/17 00:00 IMPRESSION: SUCCESSFUL PLACEMENT OF A 5 FR DUAL LUMEN 46 CM PICC IN THE RIGHT BASILIC VEIN. Interventional Vascular Procedure 11/01/17 00:00 IMPRESSION: SUCCESSFUL PLACEMENT OF A 5 FR DUAL LUMEN 46 CM PICC IN THE RIGHT BASILIC VEIN. Chest X-Ray 11/03/17 05:00 IMPRESSION: No change in bibasilar airspace disease left greater than right. Tubes and lines in good positioning. 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
[2017-11-03] MEDS: INSULIN LISPRO 100 UNIT/ML 3 ML VIAL SUBCUT PRN (18:02)
--- NOTE | 2017-11-03 20:03 | PDOC PROGRESS REPORT ---
Subjective Progress Note for:: 11/02/17 Subjective:: Patient about the same and has made very little progress. There is no significant change in general condition. Patient remains intubated, sedated, patient however looks comfortable and in acute distress. Patient was started on dobutamine infusion yesterday because of decreased urine output. 2D echo results reviewed. Patient has normal LVEF. Ideally dopamine would have been a better choice but today will try taper and DC dobutamine infusion. Patient is maintaining vitals well. Medications reviewed. Reason For Visit: ACUTE RESPIRATORY FAILURE WITH HYPERCAPNIA, Physical Exam Vital Signs: Temp Pulse Resp BP Pulse Ox 96.6 F L 57 L 16 158/89 H 98 11/02/17 18:00 11/02/17 14:11 11/02/17 18:00 11/02/17 17:46 11/02/17 18:00 Intake & Output 11/01/17 11/02/17 11/03/17 06:59 06:59 06:59 Intake Total 3491 4801 2050 Output Total 2613 6122 3000 Balance 876 -8989 -950 Weight 194.6 kg 183.8 kg 183.8 kg Results Laboratory Results: 11/02/17 05:40 11/02/17 05:40 11/02/17 11/02/17 11/02/17 05:40 05:40 08:35 WBC 7.6 RBC 4.03 Hgb 10.3 L Hct 32.2 L MCV 80 MCH 25.5 L MCHC 31.9 L RDW 17.8 H Plt Count 221 Seg Neutrophils % 90.6 H Lymphocytes % 7.3 L Monocytes % 1.9 L Eosinophils % 0.0 Basophils % 0.2 Absolute Neutrophils 6.9 Absolute Lymphocytes 0.6 Absolute Monocytes 0.1 Absolute Eosinophils 0.0 Absolute Basophils 0.0 Carbonic Acid 1.64 H HCO3/H2CO3 Ratio 16:1 ABG pH 7.32 L ABG pCO2 54.5 H ABG pO2 82.1 ABG HCO3 27.5 H ABG O2 Saturation 95.1 ABG Base Excess 0.6 FiO2 45% Sodium 142.5 Potassium 5.2 H Chloride 105 Carbon Dioxide 25 Anion Gap 13 BUN 42 H Creatinine 1.31 H Est GFR ( Amer) 48 L Est GFR (Non-Af Amer) 40 L Glucose 190 H Calcium 7.8 L Total Bilirubin 0.3 AST 22 ALT 33 Alkaline Phosphatase 77 Total Protein 6.5 Albumin 3.2 L 11/02/17 16:14 WBC RBC Hgb Hct MCV MCH MCHC RDW Plt Count Seg Neutrophils % Lymphocytes % Monocytes % Eosinophils % Basophils % Absolute Neutrophils Absolute Lymphocytes Absolute Monocytes Absolute Eosinophils Absolute Basophils Carbonic Acid 1.48 H HCO3/H2CO3 Ratio 18:1 ABG pH 7.36 ABG pCO2 49.2 H ABG pO2 67.9 L ABG HCO3 27.4 H ABG O2 Saturation 92.8 L ABG Base Excess 1.4 FiO2 35% Sodium Potassium Chloride Carbon Dioxide Anion Gap BUN Creatinine Est GFR ( Amer) Est GFR (Non-Af Amer) Glucose Calcium Total Bilirubin AST ALT Alkaline Phosphatase Total Protein Albumin 10/30/17 23:40 Tracheal Aspirate Gram Stain - Final 10/30/17 23:40 Tracheal Aspirate Sputum Culture - Final NORMAL JARRETT 10/30/17 23:40 Catheterized Urine Urine Culture - Final Escherichia Coli 10/30/17 10/30/17 10/30/17 19:56 19:56 19:56 Creatine Kinase 75 CK-MB (CK-2) 2.28 Troponin I 0.447 NT-Pro-B Natriuret Pep 37518 H 10/31/17 10/31/17 10/31/17 01:42 01:42 07:16 Creatine Kinase 55 46 CK-MB (CK-2) 2.30 Troponin I 0.430 NT-Pro-B Natriuret Pep 10/31/17 11/01/17 07:16 05:01 Creatine Kinase CK-MB (CK-2) 2.18 Troponin I 0.399 0.340 NT-Pro-B Natriuret Pep Impressions: PICC Line Insertion 10/31/17 00:00 IMPRESSION: SUCCESSFUL PLACEMENT OF A 5 FR DUAL LUMEN 46 CM PICC IN THE RIGHT BASILIC VEIN. Guidance Fluoroscopy 11/01/17 00:00 IMPRESSION: SUCCESSFUL PLACEMENT OF A 5 FR DUAL LUMEN 46 CM PICC IN THE RIGHT BASILIC VEIN. Interventional Vascular Procedure 11/01/17 00:00 IMPRESSION: SUCCESSFUL PLACEMENT OF A 5 FR DUAL LUMEN 46 CM PICC IN THE RIGHT BASILIC VEIN. Chest X-Ray 11/01/17 05:00 IMPRESSION: Collapse/ consolidation in the right middle lobe and left retrocardiac regions. Endotracheal and nasogastric tubes in good positioning Assessment & Plan - Diagnosis (1) Acute respiratory failure with hypoxia and hypercapnia Is this a current diagnosis for this admission?: Yes (2) Elevated troponin I level Is this a current diagnosis for this admission?: Yes (3) Morbid obesity Is this a current diagnosis for this admission?: Yes (4) Diabetes mellitus type 2 in obese Is this a current diagnosis for this admission?: Yes (5) CHF (congestive heart failure) Qualifiers: Heart failure type: right-sided Is this a current diagnosis for this admission?: Yes (6) CKD (chronic kidney disease), stage III Is this a current diagnosis for this admission?: Yes - Notes Notes: Have given verbal orders to taper and DC dobutamine infusion. Based on 2D echo results, patient does not need this. Acute respiratory failure with predominantly hypercarbia with some hypoxemia: Most likely related to severe obesity, obesity hypoventilation syndrome, aggravated by CHF and possibly underlying COPD. Recommend following pulmonary recommendations. Elevated troponin I level: Exact etiology not clear but could be related to respiratory failure secondary to severe hypercapnia, and some hypoxemia. Will recommend repeating EKGs. Morbid obesity: Patient will benefit from gradual weight loss and can be handled as an outpatient. Diabetes: Patient being well managed by fashion adviser. CHF: [place] to be combination of right heart failure and diastolic dysfunction. Feel that this is acute on chronic. Continue diuretic therapy. Chronic kidney disease: Currently stable. - Time Time with patient: 15-25 minutes - CODE STATUS was discussed, patient remains full code. Surrogate decision-maker unchanged. Multiple medical problems were addressed. More than 50% of the time spent coordinating care, discussing management plans with involved caregivers. Management plans discussed with involved personnels. Medical decision making was of moderate to high complexity , patient's has multiple comorbidities. Medications reviewed and adjusted accordingly: Yes
--- NOTE | 2017-11-03 20:04 | PDOC PROGRESS REPORT ---
Subjective Progress Note for:: 11/03/17 Subjective:: Patient about the same and has made very little progress. There is no significant change in general condition. Patient remains intubated, sedated, patient however looks comfortable and in acute distress. Patient is maintaining sinus rhythm. There has been no new changes or events. Reason For Visit: ACUTE RESPIRATORY FAILURE WITH HYPERCAPNIA, Physical Exam Vital Signs: Temp Pulse Resp BP Pulse Ox 97.5 F 64 20 123/65 96 11/03/17 18:10 11/03/17 14:05 11/03/17 18:10 11/03/17 18:10 11/03/17 18:10 Intake & Output 11/02/17 11/03/17 11/04/17 06:59 06:59 06:59 Intake Total 4801 3759 2133 Output Total 6167 4200 2125 Balance -1349 -441 8 Weight 183.8 kg 193.2 kg Exam: GENERAL: well-nourished and in no acute distress. Patient is intubated and sedated. Orientation cannot be checked HEAD: Atraumatic, normocephalic. EYES: Pupils equal round and reactive to light, extraocular movements could not be checked, sclera anicteric, conjunctiva are normal. ENT: TMs normal, nares patent, oropharynx clear without exudates. Moist mucous membranes. No oral ulcerations or bleeding gums noted NECK: supple without lymphadenopathy or JVD. Trachea is central. No cervical or axillary lymphadenopathy noted. Carotids are 2+ LUNGS: Breath sounds mostly clear to auscultation patient is noted to have bibasal crackles at the extreme bases CHEST: Palpation of the chest wall shows no significant chest wall tenderness or abnormalities. 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 ABDOMEN: Soft, no significant tenderness appreciated, normoactive bowel sounds. No guarding, no rebound. No rigidity noted . No masses appreciated. EXTREMITIES: Pedal pulses are 1-2+, no calf tenderness noted, 1+ pedal edema noted. No clubbing or cyanosis. NEUROLOGICAL: The patient cannot participate in the neurological exam but no facial asymmetry noted. Extremities slightly hypotonic PSYCH: This cannot be evaluated. Patient cannot participate. SKIN: No significant ecchymosis, rash, or signs of pruritus noted. MUSCULOSKELETAL EXAM: No significant joint swelling noted. Patient cannot participate in musculoskeletal exam Results Laboratory Results: 11/03/17 03:50 11/03/17 03:50 11/03/17 11/03/17 11/03/17 03:50 03:50 03:50 WBC 7.8 RBC 4.13 Hgb 10.5 L Hct 32.8 L MCV 80 MCH 25.5 L MCHC 32.1 RDW 17.6 H Plt Count 227 Seg Neutrophils % 86.3 H Lymphocytes % 9.5 L Monocytes % 3.9 Eosinophils % 0.1 Basophils % 0.2 Absolute Neutrophils 6.7 Absolute Lymphocytes 0.7 Absolute Monocytes 0.3 Absolute Eosinophils 0.0 Absolute Basophils 0.0 Carbonic Acid 1.41 H HCO3/H2CO3 Ratio 19:1 ABG pH 7.39 ABG pCO2 47.0 H ABG pO2 64.5 L ABG HCO3 27.7 H ABG O2 Saturation 92.2 L ABG Base Excess 2.2 FiO2 35% Sodium 142.5 Potassium 4.9 Chloride 104 Carbon Dioxide 26 Anion Gap 13 BUN 37 H Creatinine 1.16 Est GFR ( Amer) 56 L Est GFR (Non-Af Amer) 46 L Glucose 191 H Calcium 8.0 L 11/03/17 10:30 WBC RBC Hgb Hct MCV MCH MCHC RDW Plt Count Seg Neutrophils % Lymphocytes % Monocytes % Eosinophils % Basophils % Absolute Neutrophils Absolute Lymphocytes Absolute Monocytes Absolute Eosinophils Absolute Basophils Carbonic Acid 2.01 H HCO3/H2CO3 Ratio 14:1 ABG pH 7.25 L ABG pCO2 66.8 H ABG pO2 96.4 ABG HCO3 28.4 H ABG O2 Saturation 96.0 ABG Base Excess -0.3 FiO2 40% Sodium Potassium Chloride Carbon Dioxide Anion Gap BUN Creatinine Est GFR ( Amer) Est GFR (Non-Af Amer) Glucose Calcium 10/30/17 10/30/17 10/30/17 19:56 19:56 19:56 Creatine Kinase 75 CK-MB (CK-2) 2.28 Troponin I 0.447 NT-Pro-B Natriuret Pep 52000 H 10/31/17 10/31/17 10/31/17 01:42 01:42 07:16 Creatine Kinase 55 46 CK-MB (CK-2) 2.30 Troponin I 0.430 NT-Pro-B Natriuret Pep 10/31/17 11/01/17 07:16 05:01 Creatine Kinase CK-MB (CK-2) 2.18 Troponin I 0.399 0.340 NT-Pro-B Natriuret Pep EKG Comments: Telemetry strips shows sinus rhythm. No significant dysrhythmias noted. Impressions: PICC Line Insertion 10/31/17 00:00 IMPRESSION: SUCCESSFUL PLACEMENT OF A 5 FR DUAL LUMEN 46 CM PICC IN THE RIGHT BASILIC VEIN. Guidance Fluoroscopy 11/01/17 00:00 IMPRESSION: SUCCESSFUL PLACEMENT OF A 5 FR DUAL LUMEN 46 CM PICC IN THE RIGHT BASILIC VEIN. Interventional Vascular Procedure 11/01/17 00:00 IMPRESSION: SUCCESSFUL PLACEMENT OF A 5 FR DUAL LUMEN 46 CM PICC IN THE RIGHT BASILIC VEIN. Chest X-Ray 11/03/17 05:00 IMPRESSION: No change in bibasilar airspace disease left greater than right. Tubes and lines in good positioning. Assessment & Plan - Diagnosis (1) Acute respiratory failure with hypoxia and hypercapnia Is this a current diagnosis for this admission?: Yes (2) Elevated troponin I level Is this a current diagnosis for this admission?: Yes (3) Morbid obesity Is this a current diagnosis for this admission?: Yes (4) Diabetes mellitus type 2 in obese Is this a current diagnosis for this admission?: Yes (5) CHF (congestive heart failure) Qualifiers: Heart failure type: right-sided Is this a current diagnosis for this admission?: Yes (6) CKD (chronic kidney disease), stage III Is this a current diagnosis for this admission?: Yes - Notes Notes: Acute respiratory failure with predominantly hypercarbia with some hypoxemia: Most likely related to severe obesity, obesity hypoventilation syndrome, aggravated by CHF and possibly underlying COPD. Recommend following pulmonary recommendations. Elevated troponin I level: Exact etiology not clear but could be related to respiratory failure secondary to severe hypercapnia, and some hypoxemia. Will recommend repeating EKGs. So far no significant ischemic changes are noted. Morbid obesity: Patient will benefit from gradual weight loss and can be handled as an outpatient. Diabetes: Patient being well managed by protozoologist. CHF: [place] to be combination of right heart failure and diastolic dysfunction. Feel that this is acute on chronic. Continue diuretic therapy. Chronic kidney disease: Currently stable. Patient maintaining negative balance and edema definitely improved. - Time Time with patient: 15-25 minutes - CODE STATUS was discussed, patient remains full code. Surrogate decision-maker unchanged. Multiple medical problems were addressed. More than 50% of the time spent coordinating care, discussing management plans with involved caregivers. Management plans discussed with involved personnels. Medical decision making was of moderate to high complexity , patient's has multiple comorbidities. Medications reviewed and adjusted accordingly: Yes
[2017-11-03 22:01] LABS: ARTERIAL BLOOD BASE EXCESS 1.4 mmol/L; ARTERIAL BLOOD H2CO3 1.22 mmol/L (1.05-1.35); ARTERIAL BLOOD HCO3 25.9 mmol/L (20-26); ARTERIAL BLOOD PCO2 40.4 mmHg (35-45); ARTERIAL BLOOD PH 7.42 (7.35-7.45); ARTERIAL BLOOD PO2 79.7 mmHg (80-100); ARTERIAL BLOOD TOTAL CO2 27.1 mmol/L (21-25)
[2017-11-03 22:02] LABS: ARTERIAL BLOOD FIO2 40%
[2017-11-03] MEDS: ATORVASTATIN CALCIUM 10 MG TABLET PO SCH (22:14)
[2017-11-03] MEDS: PANTOPRAZOLE SODIUM 40 MG VIAL IV SCH (22:16)
[2017-11-04] MEDS: PROPOFOL 1,000 MG/100 ML INFUS..BTL IV PRN ×10 (00:24→23:17)
[2017-11-04] MEDS: IPRATROPIUM/ALBUTEROL 0.5-2.5 MG/3 ML AMPUL NEB SCH ×4 (00:50→20:18)
[2017-11-04] MEDS: NYSTATIN TOPICAL POWDER 15 GM TP SCH ×6 (03:07→22:37)
[2017-11-04] MEDS: LEVOTHYROXINE SODIUM 0.075 MG TABLET PO SCH (05:55)
[2017-11-04] MEDS: GABAPENTIN 400 MG CAPSULE PO SCH ×2 (05:55→17:39)
[2017-11-04] MEDS: METHYLPREDNISOLONE INJ 40 MG/1 ML SDV IV SCH ×3 (06:00→22:35)
[2017-11-04] MEDS: INSULIN LISPRO 100 UNIT/ML 3 ML VIAL SUBCUT PRN ×2 (06:24→12:14)
[2017-11-04] MEDS: NORMAL SALINE 1000 ML 1,000 ML IV PRN ×2 (07:54→17:44)
[2017-11-04 08:35] LABS: ABSOLUTE LYMPHOCYTES (AUTO) 1.2 10^3/uL (0.5-4.7); ABSOLUTE MONOCYTES (AUTO) 0.5 10^3/uL (0.1-1.4); ABSOLUTE NEUT (AUTO) 8.2 10^3/uL (1.7-8.2); BASOPHILS % (AUTO) 0.3 % (0-2); EOSINOPHILS % (AUTO) 0.2 % (0-6); HEMATOCRIT 33.6 % (36.0-47.0); HEMOGLOBIN 10.8 g/dL (12.0-15.5); MEAN CORPUSCULAR HEMOGLOBIN 25.6 pg (27.0-33.4); MEAN CORPUSCULAR HGB CONC 32.2 g/dL (32.0-36.0); MEAN CORPUSCULAR VOLUME 80 fl (80-97); MONOCYTES % (AUTO) 5.2 % (3-13); PLATELET COUNT 231 10^3/uL (150-450); RED BLOOD COUNT 4.22 10^6/uL (3.72-5.28); RED CELL DISTRIBUTION WIDTH 18.2 % (11.5-14.0); SEGMENTED NEUTROPHILS % (AUTO) 82.3 % (42-78); TOTAL CELLS COUNTED % (AUTO) 100 %; WHITE BLOOD COUNT 9.9 10^3/uL (4.0-10.5)
[2017-11-04 09:14] LABS: ANION GAP 11 (5-19); BLOOD UREA NITROGEN 37 mg/dL (7-20); CALCIUM 8.2 mg/dL (8.4-10.2); CARBON DIOXIDE 26 mmol/L (22-30); CHLORIDE 102 mmol/L (98-107); GLUCOSE 163 mg/dL (75-110); POTASSIUM 4.9 mmol/L (3.6-5.0)
--- NOTE | 2017-11-04 09:17 | RADIOLOGY REPORT (SQ) ---
EXAM DESCRIPTION: CHEST SINGLE VIEW COMPLETED DATE/TIME: 11/04/2017 8:41 am REASON FOR STUDY: resp failure COMPARISON: AP chest 11/03/2017, 11/01/2017, 10/30/2017 EXAM PARAMETERS: NUMBER OF VIEWS: One view. TECHNIQUE: Single frontal radiographic view of the chest acquired. RADIATION DOSE: NA LIMITATIONS: Portable film, obese patient FINDINGS: LUNGS AND PLEURA: Persistent bilateral lower lobe consolidation worrisome for pneumonia. This is similar compared to 11/03/2017 MEDIASTINUM AND HILAR STRUCTURES: No masses. Contour normal. HEART AND VASCULAR STRUCTURES: Stable cardiomegaly BONES: No acute findings. HARDWARE: Endotracheal tube tip 4 to 5 cm above the marcia. Nasogastric tube tip and side port in th e stomach. Right PICC line tip superior vena cava OTHER: No other significant finding. IMPRESSION: CT persistent bibasilar consolidation worrisome for pneumonia. Tubes and lines in good positioning TECHNICAL DOCUMENTATION: JOB ID: [id number]- All Rights Reserved Reading location - IP/workstation name: [email or web address]
[2017-11-04] MEDS: SERTRALINE HCL 50 MG TABLET PO SCH (09:41)
[2017-11-04] MEDS: ENOXAPARIN SODIUM INJ 40 MG/0.4 ML DISP.SYRIN SUBCUT SCH (09:41)
[2017-11-04] MEDS: CLONAZEPAM 1 MG TABLET NG SCH ×2 (09:41→22:35)
[2017-11-04] MEDS: FUROSEMIDE INJ/PF 40 MG/4 ML SDV IV SCH (09:41)
[2017-11-04] MEDS: NORMAL SALINE 10 ML SDV (SCHEDULED) IV SCH ×2 (09:54→22:37)
[2017-11-04] MEDS: MORPHINE SULFATE 10 MG/ML INJ IV PRN ×2 (10:11→14:58)
--- NOTE | 2017-11-04 11:25 | PROGRESS NOTE E ---
Progress Note NAME: SERINA LEE : 1945 AGE: 71Y DATE: 11/01/2017 ROOM: 603 SUBJECTIVE: Patient is a 71-year-old female who came in with acute respiratory failure requiring invasive mechanical ventilation. A patient is morbidly obese, with obesity hypoventilation syndrome, congestive heart failure, pneumonia right lung base and pleural effusion. Patient has been stable over the last 24 hours. No fever. No chills noted. Has some endotracheal tube secretions, thick and yellow, this morning. The patient failed spontaneous breathing trial this morning. The patient still requires high PEEP of 10, pressure support of 10 above PEEP and FiO2 of 40% and O2 saturation of 94%. The patient is off vasopressors. The patient tolerated the OG tube feeding well. No vomiting. No diarrhea. The patient woke up on sedation vacation this morning and appeared to be mentating well but seemed to be in severe pain. OBJECTIVE: GENERAL: Currently, the patient is sedated, afebrile, not in acute respiratory distress with a temperature of 97.5 with a T-max of 97.5, heart rate of 51, blood pressure 133/65, respiratory rate 20, saturation is 94% on 40% FiO2, PEEP of 10, pressure support of 10 above PEEP, the SIMV rate of 20, and tidal volume of 450 mL. EYES: No jaundice or pallor. EARS, NOSE AND THROAT: No ear drainage noted. No nasal discharge. HEAD AND NECK: No scalp swelling or tenderness. Neck supple. CHEST AND LUNGS: No wheezing. No rhonchi noted. No coarse crackles. CARDIOVASCULAR: S1, S2 distinct. Normal rate, regular rhythm. ABDOMEN: Flabby. Positive bowel sounds. Soft, nondistended. EXTREMITIES: No joint swelling. Erythema and swelling, left lower leg *------*. LABORATORY DATA: A CBC done today showed white count of 7.8; hemoglobin is 10.5; hematocrit 32.8; platelet count 257. Chemistry done today showed sodium of 144, potassium 4.9, chloride 104, carbon dioxide 26, BUN 27, creatinine 1.1, glucose is 181, calcium is 8. ASSESSMENT: 1. ACUTE RESPIRATORY FAILURE REQUIRING INVASIVE MECHANICAL VENTILATION. She currently appears stable, not ready to be extubated yet. Failed spontaneous breathing trial this morning. 2. PULMONARY EDEMA/CONGESTIVE HEART FAILURE. 3. PNEUMONIA, RIGHT LOWER LOBE APPEARS TO BE IMPROVING. 4. ASTHMA EXACERBATION. CURRENTLY DOES APPEAR TO BE IMPROVING. NO BRONCHOSPASM NOTED. PLAN AND RECOMMENDATIONS: 1. We will continue to optimize ventilator support and nutritional support. 2. We will place the patient on SIMV rate of 20, tidal volume 450, pressure support of 10, PEEP of 10, FiO2 of 40% titrated to keep saturation at 91 to 94%. DICTATING PHYSICIAN: ADRIAN GROVES MD,YELENA,MPH [id number] PHY#: [id number] ID: [id number] JOB#: [id number] ACCT: [id number] cc: > MTDD
[2017-11-04] MEDS ORDERED: DEXTROSE 40% GEL 15 GM TUBE NG PRN (12:30)
[2017-11-04] MEDS ORDERED: DEXTROSE 40% GEL 15 GM TUBE X 2 NG PRN (12:30)
[2017-11-04 12:39] LABS: ARTERIAL BLOOD BASE EXCESS -2.6 mmol/L; ARTERIAL BLOOD H2CO3 1.27 mmol/L (1.05-1.35); ARTERIAL BLOOD HCO3 22.9 mmol/L (20-26); ARTERIAL BLOOD PCO2 42.1 mmHg (35-45); ARTERIAL BLOOD PH 7.35 (7.35-7.45); ARTERIAL BLOOD PO2 114.5 mmHg (80-100); ARTERIAL BLOOD TOTAL CO2 24.2 mmol/L (21-25)
[2017-11-04 12:41] LABS: ARTERIAL BLOOD FIO2 40% OXYGEN
[2017-11-04] MEDS ORDERED: LEVOFLOXACIN 750 MG TABLET PO SCH (18:00)
[2017-11-04] MEDS: LEVOFLOXACIN 750 MG TABLET NG SCH (19:11)
--- NOTE | 2017-11-04 19:28 | PDOC PROGRESS REPORT ---
Subjective Progress Note for:: 11/04/17 Subjective:: Patient is seen by the bedside, intubated on mechanical ventilation Reason For Visit: ACUTE RESPIRATORY FAILURE WITH HYPERCAPNIA, Physical Exam Vital Signs: Temp Pulse Resp BP Pulse Ox 97.9 F 98 20 128/63 H 98 11/04/17 15:41 11/04/17 13:40 11/04/17 15:41 11/04/17 15:41 11/04/17 16:05 Intake & Output 11/03/17 11/04/17 11/05/17 06:59 06:59 06:59 Intake Total 3759 4337 Output Total 4200 3425 3475 Balance -441 912 -3475 Weight 193.2 kg 191.9 kg Respiratory exam: PRESENT: other - Equal air entry in both lung torre Cardiovascular exam: PRESENT: +S1, +S2 GI/Abdominal exam: PRESENT: soft - Soft and obese Results Laboratory Results: 11/04/17 08:25 11/04/17 08:25 11/03/17 11/04/17 11/04/17 21:30 08:25 08:25 WBC 9.9 RBC 4.22 Hgb 10.8 L Hct 33.6 L MCV 80 MCH 25.6 L MCHC 32.2 RDW 18.2 H Plt Count 231 Seg Neutrophils % 82.3 H Lymphocytes % 12.0 L Monocytes % 5.2 Eosinophils % 0.2 Basophils % 0.3 Absolute Neutrophils 8.2 Absolute Lymphocytes 1.2 Absolute Monocytes 0.5 Absolute Eosinophils 0.0 Absolute Basophils 0.0 Carbonic Acid 1.22 HCO3/H2CO3 Ratio 21:1 ABG pH 7.42 ABG pCO2 40.4 ABG pO2 79.7 L ABG HCO3 25.9 ABG O2 Saturation 96.0 ABG Base Excess 1.4 FiO2 40% Sodium 139.0 Potassium 4.9 Chloride 102 Carbon Dioxide 26 Anion Gap 11 BUN 37 H Creatinine 1.08 Est GFR ( Amer) > 60 Est GFR (Non-Af Amer) 50 L Glucose 163 H Calcium 8.2 L 11/04/17 12:25 WBC RBC Hgb Hct MCV MCH MCHC RDW Plt Count Seg Neutrophils % Lymphocytes % Monocytes % Eosinophils % Basophils % Absolute Neutrophils Absolute Lymphocytes Absolute Monocytes Absolute Eosinophils Absolute Basophils Carbonic Acid 1.27 HCO3/H2CO3 Ratio 18:1 ABG pH 7.35 ABG pCO2 42.1 ABG pO2 114.5 H ABG HCO3 22.9 ABG O2 Saturation 98.0 ABG Base Excess -2.6 FiO2 40% OXYGEN Sodium Potassium Chloride Carbon Dioxide Anion Gap BUN Creatinine Est GFR ( Amer) Est GFR (Non-Af Amer) Glucose Calcium 10/30/17 10/30/17 10/30/17 19:56 19:56 19:56 Creatine Kinase 75 CK-MB (CK-2) 2.28 Troponin I 0.447 NT-Pro-B Natriuret Pep 21994 H 10/31/17 10/31/17 10/31/17 01:42 01:42 07:16 Creatine Kinase 55 46 CK-MB (CK-2) 2.30 Troponin I 0.430 NT-Pro-B Natriuret Pep 10/31/17 11/01/17 07:16 05:01 Creatine Kinase CK-MB (CK-2) 2.18 Troponin I 0.399 0.340 NT-Pro-B Natriuret Pep Impressions: PICC Line Insertion 10/31/17 00:00 IMPRESSION: SUCCESSFUL PLACEMENT OF A 5 FR DUAL LUMEN 46 CM PICC IN THE RIGHT BASILIC VEIN. Guidance Fluoroscopy 11/01/17 00:00 IMPRESSION: SUCCESSFUL PLACEMENT OF A 5 FR DUAL LUMEN 46 CM PICC IN THE RIGHT BASILIC VEIN. Interventional Vascular Procedure 11/01/17 00:00 IMPRESSION: SUCCESSFUL PLACEMENT OF A 5 FR DUAL LUMEN 46 CM PICC IN THE RIGHT BASILIC VEIN. Chest X-Ray 11/04/17 08:17 IMPRESSION: CT persistent bibasilar consolidation worrisome for pneumonia. Tubes and lines in good positioning Assessment & Plan - Diagnosis (1) Acute respiratory failure with hypoxia and hypercapnia Is this a current diagnosis for this admission?: Yes (2) Acute diastolic (congestive) heart failure Is this a current diagnosis for this admission?: Yes (3) Morbid obesity with BMI of 70 and over, adult Is this a current diagnosis for this admission?: Yes (4) Obesity hypoventilation syndrome Is this a current diagnosis for this admission?: Yes (5) Elevated troponin Is this a current diagnosis for this admission?: Yes (6) Chronic venous hypertension (idiopathic) with ulcer and inflammation of bilateral lower extremity Is this a current diagnosis for this admission?: Yes (7) Right middle lobe pneumonia Qualifiers: Pneumonia type: due to unspecified organism Qualified Code(s): J18.1 - Lobar pneumonia, unspecified organism Is this a current diagnosis for this admission?: Yes - Plan Summary Plan Summary: Continue mechanical ventilation and present treatment
--- NOTE | 2017-11-04 21:15 | PROGRESS NOTE E ---
Progress Note NAME: SERINA LEE : 1945 AGE: 71Y DATE: 11/04/2017 ROOM: 603 SUBJECTIVE: The patient is a 71-year-old lady who came in acute respiratory failure requiring invasive mechanical ventilation. The patient was doing well with spontaneous breathing trial today. However, the patient still has some copious amount of endotracheal tube secretions. The patient was placed back on for ventilatory support after 1 hour of spontaneous breathing trial. The patient tolerated NG tube feeding. Blood pressure has been stable over the last 24 hours. No fever spikes. No nausea, no vomiting or diarrhea. OBJECTIVE: GENERAL: The patient is sedated, afebrile, no in acute respiratory distress. VITAL SIGNS: Temperature is 97.9 with a T-max of 97.9, heart rate of 68, blood pressure is 128/63, respiratory is 20, saturation is 95% on 40% FiO2, PEEP of 6, tidal volume of 450, pressure support 10. EYES: No jaundice or pallor. EARS, NOSE, AND THROAT: No ear drainage. No nasal discharge. HEAD AND NECK: No scalp swelling, no tenderness. Endotracheal tube is in place. CHEST AND LUNGS: No wheezing, no rhonchi, no coarse crackles. CARDIOVASCULAR: S1, S2 distinct. Normal rate, regular rhythm. ABDOMEN: Flabby, positive bowel sounds, soft, nondistended, nontender. EXTREMITIES: No joint swelling. Erythema involving the left lower leg. LABORATORY DATA: CBC done today showed a white count of 9.9, hemoglobin is 10.8, hematocrit is 33.6. ABG at 12:25 p.m. today after 1 hour of spontaneous breathing trial showed a pH of 7.35, pCO2 of 42.1, pO2 of 114, ABG oxygen saturation 98%. Chemistry done today showed a sodium of 139, potassium 4.9, chloride 102, CO2 is 26, BUN 37, creatinine is 1.08, glucose 163, and calcium is 8.2. IMAGING STUDIES: Chest x-ray done today showed absence of pneumothorax. Endotracheal tube is in place. No worsening infiltrate. ASSESSMENT: 1. ACUTE RESPIRATORY FAILURE REQUIRING INVASIVE MECHANICAL VENTILATION. The patient did do a spontaneous breathing trial, however, endotracheal tube secretion remains perfuse and the patient is not ready to be extubated yet. 2. PNEUMONIA. Appeared to be improving. Leukocytosis has resolved. 3. MORBID OBESITY/OBESITY HYPOVENTILATION SYNDROME. 4. HISTORY OF CONGESTIVE HEART FAILURE AND PULMONARY EDEMA. PLAN/RECOMMENDATIONS: 1. We will do a sedation vacation again tomorrow and we will subsequently perform spontaneous breathing trial. 2. We'll sent sputum for culture today. 3. We will continue to optimize ventilatory support and nutritional support. DICTATING PHYSICIAN: ADRIAN GROVES MD,YELENA,MPH [id number] [id number] PHY#: [id number] 2022 ID: [id number] JOB#: [id number] ACCT: [id number] cc: > MTDD
[2017-11-04] MEDS: ATORVASTATIN CALCIUM 10 MG TABLET NG SCH (22:35)
[2017-11-04] MEDS: PANTOPRAZOLE SODIUM 40 MG VIAL IV SCH (22:37)
[2017-11-05] MEDS: IPRATROPIUM/ALBUTEROL 0.5-2.5 MG/3 ML AMPUL NEB SCH ×4 (01:08→20:24)
[2017-11-05] MEDS: NYSTATIN TOPICAL POWDER 15 GM TP SCH ×6 (03:43→22:30)
[2017-11-05] MEDS: PROPOFOL 1,000 MG/100 ML INFUS..BTL IV PRN ×12 (04:22→22:29)
[2017-11-05 06:35] LABS: ABSOLUTE BASOPHILS # (AUTO) 0.1 10^3/uL (0.0-0.2); ABSOLUTE EOSINOPHILS # (AUTO) 0.2 10^3/uL (0.0-0.6); ABSOLUTE LYMPHOCYTES (AUTO) 3.4 10^3/uL (0.5-4.7); ABSOLUTE MONOCYTES (AUTO) 0.6 10^3/uL (0.1-1.4); ABSOLUTE NEUT (AUTO) 6.4 10^3/uL (1.7-8.2); BASOPHILS % (AUTO) 0.8 % (0-2); EOSINOPHILS % (AUTO) 1.6 % (0-6); HEMATOCRIT 31.8 % (36.0-47.0); HEMOGLOBIN 10.5 g/dL (12.0-15.5); LYMPHOCYTES % (AUTO) 32.2 % (13-45); MEAN CORPUSCULAR HEMOGLOBIN 25.9 pg (27.0-33.4); MEAN CORPUSCULAR VOLUME 78 fl (80-97); MONOCYTES % (AUTO) 5.3 % (3-13); PLATELET COUNT 213 10^3/uL (150-450); RED BLOOD COUNT 4.06 10^6/uL (3.72-5.28); RED CELL DISTRIBUTION WIDTH 18.1 % (11.5-14.0); SEGMENTED NEUTROPHILS % (AUTO) 60.1 % (42-78); TOTAL CELLS COUNTED % (AUTO) 100 %; WHITE BLOOD COUNT 10.6 10^3/uL (4.0-10.5)
[2017-11-05] MEDS: GABAPENTIN 400 MG CAPSULE PO SCH ×2 (06:45→18:32)
[2017-11-05] MEDS: LEVOTHYROXINE SODIUM 0.075 MG TABLET NG SCH (06:45)
[2017-11-05 06:48] LABS: ANION GAP 12 (5-19); BLOOD UREA NITROGEN 34 mg/dL (7-20); CALCIUM 8.2 mg/dL (8.4-10.2); CARBON DIOXIDE 25 mmol/L (22-30); CHLORIDE 103 mmol/L (98-107); GLUCOSE 90 mg/dL (75-110); POTASSIUM 4.3 mmol/L (3.6-5.0); SODIUM 139.9 mmol/L (137-145)
--- NOTE | 2017-11-05 08:30 | RADIOLOGY REPORT (SQ) ---
EXAM DESCRIPTION: CHEST SINGLE VIEW COMPLETED DATE/TIME: 11/05/2017 7:10 am REASON FOR STUDY: on ventilator COMPARISON: 11/04/2017. 0831 hours. EXAM PARAMETERS: NUMBER OF VIEWS: AP semi-upright view. 11/05/2017. TECHNIQUE: Single frontal radiographic view of the chest acquired. RADIATION DOSE: NA LIMITATIONS: None. FINDINGS: LUNGS AND PLEURA: Persistent bibasilar airspace consolidation and effusions. MEDIASTINUM AND HILAR STRUCTURES: No masses. Contour normal. HEART AND VASCULAR STRUCTURES: The heart is unchanged. The pulmonary vasculature is normal. BONES: No acute findings. HARDWARE: None in the chest. OTHER: NG tube overlying stomach. Endotracheal tube above the marcia. Chest leads in place. IMPRESSION: Persistent bibasilar alveolar infiltrates and effusions. No significant change. TECHNICAL DOCUMENTATION: JOB ID: [id number] [employer]- All Rights Reserved Reading location - IP/workstation name: [email or web address]
[2017-11-05] MEDS: FUROSEMIDE INJ/PF 40 MG/4 ML SDV IV SCH (09:18)
[2017-11-05] MEDS: METHYLPREDNISOLONE INJ 40 MG/1 ML SDV IV SCH ×2 (09:19→22:29)
[2017-11-05] MEDS: SERTRALINE HCL 50 MG TABLET NG SCH (09:19)
[2017-11-05] MEDS: ENOXAPARIN SODIUM INJ 40 MG/0.4 ML DISP.SYRIN SUBCUT SCH (09:20)
[2017-11-05] MEDS: CLONAZEPAM 1 MG TABLET NG SCH ×2 (09:30→22:30)
[2017-11-05] MEDS: NORMAL SALINE 10 ML SDV (SCHEDULED) IV SCH ×2 (09:30→22:31)
--- NOTE | 2017-11-05 11:14 | PDOC PROGRESS REPORT ---
Subjective Progress Note for:: 11/05/17 Subjective:: Patient remain intubated and vent supported. Currently sedated on IV Propofol. Currently off enteral tube feeding in anticipation of possible extubation today. Reason For Visit: ACUTE RESPIRATORY FAILURE WITH HYPERCAPNIA, Physical Exam Vital Signs: Temp Pulse Resp BP Pulse Ox 96.8 F L 56 L 20 127/72 H 99 11/05/17 10:15 11/05/17 10:00 11/05/17 10:15 11/05/17 10:11 11/05/17 10:15 Intake & Output 11/04/17 11/05/17 11/06/17 06:59 06:59 06:59 Intake Total 4337 4300 Output Total 3425 5375 900 Balance 912 -1075 -900 Weight 191.9 kg 189.9 kg Physical Exam: Intubated with ET and OG tubes in situ. General appearance: PRESENT: morbidly obese Head exam: PRESENT: atraumatic, normocephalic Eye exam: PRESENT: conjunctiva pink, EOMI, PERRLA. ABSENT: scleral icterus Mouth exam: PRESENT: moist Respiratory exam: PRESENT: decreased breath sounds - at lung bases Cardiovascular exam: PRESENT: RRR. ABSENT: diastolic murmur, rubs, systolic murmur Vascular exam: PRESENT: normal capillary refill. ABSENT: pallor GI/Abdominal exam: PRESENT: normal bowel sounds, soft. ABSENT: distended, guarding, mass, organolmegaly, rebound, tenderness Extremities exam: PRESENT: pedal edema - minimal Neurological exam: PRESENT: altered - sedated on IV propofol Skin exam: PRESENT: dry, warm, other - dressing over left foot and leg ulcer satisfactory Results Laboratory Results: 11/05/17 06:20 11/05/17 06:20 11/04/17 11/05/17 11/05/17 12:25 06:20 06:20 WBC 10.6 H RBC 4.06 Hgb 10.5 L Hct 31.8 L MCV 78 L MCH 25.9 L MCHC 33.0 RDW 18.1 H Plt Count 213 Seg Neutrophils % 60.1 Lymphocytes % 32.2 Monocytes % 5.3 Eosinophils % 1.6 Basophils % 0.8 Absolute Neutrophils 6.4 Absolute Lymphocytes 3.4 Absolute Monocytes 0.6 Absolute Eosinophils 0.2 Absolute Basophils 0.1 Carbonic Acid 1.27 HCO3/H2CO3 Ratio 18:1 ABG pH 7.35 ABG pCO2 42.1 ABG pO2 114.5 H ABG HCO3 22.9 ABG O2 Saturation 98.0 ABG Base Excess -2.6 FiO2 40% OXYGEN Sodium 139.9 Potassium 4.3 Chloride 103 Carbon Dioxide 25 Anion Gap 12 BUN 34 H Creatinine 0.99 Est GFR ( Amer) > 60 Est GFR (Non-Af Amer) 55 L Glucose 90 Calcium 8.2 L 10/30/17 10/30/17 10/30/17 19:56 19:56 19:56 Creatine Kinase 75 CK-MB (CK-2) 2.28 Troponin I 0.447 NT-Pro-B Natriuret Pep 81325 H 10/31/17 10/31/17 10/31/17 01:42 01:42 07:16 Creatine Kinase 55 46 CK-MB (CK-2) 2.30 Troponin I 0.430 NT-Pro-B Natriuret Pep 10/31/17 11/01/17 07:16 05:01 Creatine Kinase CK-MB (CK-2) 2.18 Troponin I 0.399 0.340 NT-Pro-B Natriuret Pep Impressions: PICC Line Insertion 10/31/17 00:00 IMPRESSION: SUCCESSFUL PLACEMENT OF A 5 FR DUAL LUMEN 46 CM PICC IN THE RIGHT BASILIC VEIN. Guidance Fluoroscopy 11/01/17 00:00 IMPRESSION: SUCCESSFUL PLACEMENT OF A 5 FR DUAL LUMEN 46 CM PICC IN THE RIGHT BASILIC VEIN. Interventional Vascular Procedure 11/01/17 00:00 IMPRESSION: SUCCESSFUL PLACEMENT OF A 5 FR DUAL LUMEN 46 CM PICC IN THE RIGHT BASILIC VEIN. Chest X-Ray 11/05/17 05:00 IMPRESSION: Persistent bibasilar alveolar infiltrates and effusions. No significant change. Assessment & Plan - Diagnosis (1) Acute respiratory failure with hypercapnia Is this a current diagnosis for this admission?: Yes Plan: Continue ventilatory support pending weaning and possible extubation today. (2) Obesity hypoventilation syndrome Is this a current diagnosis for this admission?: Yes Plan: Continue current medication and supportive management. (3) Right middle lobe pneumonia Qualifiers: Pneumonia type: due to unspecified organism Qualified Code(s): J18.1 - Lobar pneumonia, unspecified organism Is this a current diagnosis for this admission?: Yes (4) Diabetes mellitus type 2 in obese Is this a current diagnosis for this admission?: Yes Plan: Maintain on current medication management. (5) Chronic venous hypertension (idiopathic) with ulcer and inflammation of bilateral lower extremity Is this a current diagnosis for this admission?: Yes Plan: Maintain on current medication management. (6) Morbid obesity with BMI of 70 and over, adult Is this a current diagnosis for this admission?: Yes Plan: Maintain on current medication management. - Time Time Spent with patient: 25-34 minutes Medications reviewed and adjusted accordingly: Yes Anticipated discharge: SNF Within: Other - Inpatient Certification Based on my medical assessment, after consideration of the patient's comorbidities, presenting symptoms, or acuity I expect that the services needed warrant INPATIENT care.: Yes I certify that my determination is in accordance with my understanding of Medicare's requirements for reasonable and necessary INPATIENT services [42 CFR 412.3e].: Yes Medical Necessity: Need Close Monitoring Due to Risk of Patient Decompensation, Need For IV Fluids, Need For Continuous Telemetry Monitoring, Need for Nebulizer Therapy and Monitoring of Response, Need for IV Antibiotics, Risk of Complication if Not Cared For in Hospital Post Hospital Care: D/C or Transfer Summary - Plan Summary Plan Summary: Maintain on current medication management.
[2017-11-05] MEDS: NORMAL SALINE 1000 ML 1,000 ML IV PRN (14:11)
[2017-11-05] MEDS ORDERED: VANCOMYCIN HCL INJ 1000 MG VIAL IV PRN (16:41)
[2017-11-05] MEDS ORDERED: PIPERACILLIN/TAZOBACTAM 3.375 GM VIAL IV PRN (17:00)
[2017-11-05] MEDS ORDERED: VANCOMYCIN HCL 1,000 MG in DEXTROSE 5%-WATER 250 ML IV ONE (17:30)
--- NOTE | 2017-11-05 17:35 | PROGRESS NOTE E ---
Progress Note NAME: SERINA LEE : 1945 AGE: 71Y DATE: 11/05/2017 ROOM: 603 SUBJECTIVE: Patient is a 71-year-old female who came in morbidly obese, with obesity hypoventilation syndrome, in acute respiratory failure, requiring invasive mechanical ventilation, pulmonary edema, with bronchial asthma and pneumonia, right lower lobe. Patient failed spontaneous breathing trial today. Patient still had very thick yellow endotracheal tube secretions per RN and Respiratory Therapy. Sputum culture was sent yesterday, showing gram-positive cocci in clusters. Blood culture done on October 30, 2017 showed Staphylococcus epidermidis, 1 bottle, which may be a contaminant. Also a urine culture which was positive for Escherichia coli, which is resistant to levofloxacin, but sensitive to cefepime. There was no fever over the last 24 hours. Temperature is 98.2. Patient required lesser FiO2 of 35% with a PEEP of 5 and saturating about 100%. Patient tolerated OG tube feedings. No vomiting and no diarrhea. OBJECTIVE: GENERAL: Patient is awake and afebrile, not in acute respiratory distress. VITAL SIGNS: The temperature is 98.2, with a T-max of 98.2. Pulse rate is 59. Blood pressure is 130/69. The respirations are 20. Saturation 99% on FiO2 of 35%, PEEP of 6 and pressor support of 10 above PEEP. Tidal volume at 15 mL and a rate of 20. EYES: No jaundice or pallor. EARS, NOSE AND THROAT: No ear drainage. No nasal discharge. HEAD AND NECK: Orogastric tube is in place. No nasal drainage noted. CHEST AND LUNGS: No wheezing. There is possible rhonchi bilaterally. CARDIAC: S1, S2 are distant. No murmurs, rubs or gallops. ABDOMEN: Positive bowel sounds. Soft, nondistended, tender. EXTREMITIES: No joint swelling. Erythema, left leg. LABORATORY DATA: CBC done today showed white count of 10.6, which is slightly elevated compared to yesterday, 9.9. Hemoglobin is 10.5, hematocrit is 31.8, platelet count is 213,000. No bandemia noted. Chemistry done today showed sodium 139, potassium of 4.3, chloride 103, CO2 is 35, BUN 34, creatinine 0.99. Glucose 90 and calcium is 8.2. ASSESSMENT: 1. ACUTE RESPIRATORY FAILURE REQUIRING INVASIVE MECHANICAL INTUBATION. Patient failed spontaneous breathing trial this morning. 2. PNEUMONIA, RIGHT LUNG BASE. Currently on IV Levaquin. Infiltrates seem to be improving compared to yesterday. There has been some pulmonary edema component in the lungs. Sputum culture yesterday showed gram positive cocci in clusters. 3. COPD/BRONCHIAL ASTHMA. Currently having bronchospasm acute exacerbation. 4. UROSEPSIS - ESCHERICHIA COLI, RESISTANT TO THE LEVAQUIN. 5. MORBID OBESITY/OBESITY HYPOVENTILATION SYNDROME. 6. HISTORY OF CONGESTIVE HEART FAILURE/PULMONARY EDEMA. PLAN AND RECOMMENDATIONS: 1. We will do a blood culture today. Will add IV vancomycin 1 gram now and pharmacy to dose the subsequent doses. 2. We will increase the steroids to 40 mg q.8 hours IV. 3. Will provide nebulizer treatment. 4. Will add Zosyn IV to broaden antibiotic coverage. Patient is showing early signs of possible sepsis. IV Levaquin alone may not be enough for this patient at this time. DICTATING PHYSICIAN: ADRIAN GROVES MD,YELENA,MPH [id number] PHY#: [id number] ID: [id number] JOB#: [id number] ACCT: [id number] cc: > MTDD
--- NOTE | 2017-11-05 18:02 | PDOC PROGRESS REPORT ---
Subjective Progress Note for:: 11/04/17 Subjective:: Patient is more alert. She seems to following some verbal commands. Sedation is being reduced in preparation for possible extubation later today or tomorrow. Patient remains intubated, sedated, patient however looks comfortable and in acute distress. Patient was started on dobutamine infusion yesterday because of decreased urine output. 2D echo results reviewed. Patient has normal LVEF. Reason For Visit: ACUTE RESPIRATORY FAILURE WITH HYPERCAPNIA, Physical Exam Vital Signs: Temp Pulse Resp BP Pulse Ox 98.4 F 64 20 125/67 96 11/04/17 20:15 11/04/17 20:18 11/04/17 20:18 11/04/17 20:11 11/04/17 20:18 Intake & Output 11/03/17 11/04/17 11/05/17 06:59 06:59 06:59 Intake Total 3759 4337 2534 Output Total 4200 3425 4375 Balance -441 912 -1841 Weight 193.2 kg 191.9 kg Exam: GENERAL: well-nourished and in no acute distress. Patient is intubated and sedated. Orientation cannot be checked HEAD: Atraumatic, normocephalic. EYES: Pupils equal round and reactive to light, extraocular movements could not be checked, sclera anicteric, conjunctiva are normal. ENT: TMs normal, nares patent, oropharynx clear without exudates. Moist mucous membranes. No oral ulcerations or bleeding gums noted NECK: supple without lymphadenopathy or JVD. Trachea is central. No cervical or axillary lymphadenopathy noted. Carotids are 2+ LUNGS: Breath sounds mostly clear to auscultation patient is noted to have bibasal crackles at the extreme bases CHEST: Palpation of the chest wall shows no significant chest wall tenderness or abnormalities. 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 ABDOMEN: Soft, no significant tenderness appreciated, normoactive bowel sounds. No guarding, no rebound. No rigidity noted . No masses appreciated. EXTREMITIES: Pedal pulses are 1-2+, no calf tenderness noted, 1+ pedal edema noted. No clubbing or cyanosis. NEUROLOGICAL: The patient cannot participate in the neurological exam but no facial asymmetry noted. Extremities slightly hypotonic PSYCH: This cannot be evaluated. Patient cannot participate. SKIN: No significant ecchymosis, rash, or signs of pruritus noted. MUSCULOSKELETAL EXAM: No significant joint swelling noted. Patient cannot participate in musculoskeletal exam Results Laboratory Results: 11/04/17 08:25 11/04/17 08:25 11/03/17 11/04/17 11/04/17 21:30 08:25 08:25 WBC 9.9 RBC 4.22 Hgb 10.8 L Hct 33.6 L MCV 80 MCH 25.6 L MCHC 32.2 RDW 18.2 H Plt Count 231 Seg Neutrophils % 82.3 H Lymphocytes % 12.0 L Monocytes % 5.2 Eosinophils % 0.2 Basophils % 0.3 Absolute Neutrophils 8.2 Absolute Lymphocytes 1.2 Absolute Monocytes 0.5 Absolute Eosinophils 0.0 Absolute Basophils 0.0 Carbonic Acid 1.22 HCO3/H2CO3 Ratio 21:1 ABG pH 7.42 ABG pCO2 40.4 ABG pO2 79.7 L ABG HCO3 25.9 ABG O2 Saturation 96.0 ABG Base Excess 1.4 FiO2 40% Sodium 139.0 Potassium 4.9 Chloride 102 Carbon Dioxide 26 Anion Gap 11 BUN 37 H Creatinine 1.08 Est GFR ( Amer) > 60 Est GFR (Non-Af Amer) 50 L Glucose 163 H Calcium 8.2 L 11/04/17 12:25 WBC RBC Hgb Hct MCV MCH MCHC RDW Plt Count Seg Neutrophils % Lymphocytes % Monocytes % Eosinophils % Basophils % Absolute Neutrophils Absolute Lymphocytes Absolute Monocytes Absolute Eosinophils Absolute Basophils Carbonic Acid 1.27 HCO3/H2CO3 Ratio 18:1 ABG pH 7.35 ABG pCO2 42.1 ABG pO2 114.5 H ABG HCO3 22.9 ABG O2 Saturation 98.0 ABG Base Excess -2.6 FiO2 40% OXYGEN Sodium Potassium Chloride Carbon Dioxide Anion Gap BUN Creatinine Est GFR ( Amer) Est GFR (Non-Af Amer) Glucose Calcium 10/30/17 10/30/17 10/30/17 19:56 19:56 19:56 Creatine Kinase 75 CK-MB (CK-2) 2.28 Troponin I 0.447 NT-Pro-B Natriuret Pep 85935 H 10/31/17 10/31/17 10/31/17 01:42 01:42 07:16 Creatine Kinase 55 46 CK-MB (CK-2) 2.30 Troponin I 0.430 NT-Pro-B Natriuret Pep 10/31/17 11/01/17 07:16 05:01 Creatine Kinase CK-MB (CK-2) 2.18 Troponin I 0.399 0.340 NT-Pro-B Natriuret Pep EKG Comments: Telemetry strips shows sinus rhythm. No sustained tachycardia or bradycardia noted. Impressions: PICC Line Insertion 10/31/17 00:00 IMPRESSION: SUCCESSFUL PLACEMENT OF A 5 FR DUAL LUMEN 46 CM PICC IN THE RIGHT BASILIC VEIN. Guidance Fluoroscopy 11/01/17 00:00 IMPRESSION: SUCCESSFUL PLACEMENT OF A 5 FR DUAL LUMEN 46 CM PICC IN THE RIGHT BASILIC VEIN. Interventional Vascular Procedure 11/01/17 00:00 IMPRESSION: SUCCESSFUL PLACEMENT OF A 5 FR DUAL LUMEN 46 CM PICC IN THE RIGHT BASILIC VEIN. Chest X-Ray 11/04/17 08:17 IMPRESSION: CT persistent bibasilar consolidation worrisome for pneumonia. Tubes and lines in good positioning Assessment & Plan - Diagnosis (1) Acute respiratory failure with hypoxia and hypercapnia Is this a current diagnosis for this admission?: Yes (2) Elevated troponin I level Is this a current diagnosis for this admission?: Yes (3) Morbid obesity Is this a current diagnosis for this admission?: Yes (4) Diabetes mellitus type 2 in obese Is this a current diagnosis for this admission?: Yes (5) CHF (congestive heart failure) Qualifiers: Heart failure type: right-sided Is this a current diagnosis for this admission?: Yes (6) CKD (chronic kidney disease), stage III Is this a current diagnosis for this admission?: Yes - Notes Notes: Sedation is being gradually reduced. I am told by the nurses patient still not ready for extubation. She is still on some dose of sedation. Acute respiratory failure with predominantly hypercarbia with some hypoxemia: Most likely related to severe obesity, obesity hypoventilation syndrome, aggravated by CHF and possibly underlying COPD. Recommend following pulmonary recommendations. Elevated troponin I level: Exact etiology not clear but could be related to respiratory failure secondary to severe hypercapnia, and some hypoxemia. Will recommend repeating EKGs. Morbid obesity: Patient will benefit from gradual weight loss and can be handled as an outpatient. 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 CHF: [place] to be combination of right heart failure and diastolic dysfunction. Feel that this is acute on chronic. Continue diuretic therapy. Gradually improving Chronic kidney disease: Currently stable. - Time Time with patient: 15-25 minutes - CODE STATUS was discussed, patient remains full code. Surrogate decision-maker unchanged. Multiple medical problems were addressed. More than 50% of the time spent coordinating care, discussing management plans with involved caregivers. Management plans discussed with involved personnels. Medical decision making was of moderate to high complexity , patient's has multiple comorbidities. Medications reviewed and adjusted accordingly: Yes
--- NOTE | 2017-11-05 18:05 | PDOC PROGRESS REPORT ---
Subjective Progress Note for:: 11/05/17 Subjective:: Patient is more alert. She seems to following some verbal commands. Sedation is being gradually reduced in preparation for possible extubation later today or tomorrow. Patient remains intubated, sedated, patient however looks comfortable and in acute distress. Patient was started on dobutamine infusion yesterday because of decreased urine output. 2D echo results reviewed. Patient has normal LVEF. Reason For Visit: ACUTE RESPIRATORY FAILURE WITH HYPERCAPNIA, Physical Exam Vital Signs: Temp Pulse Resp BP Pulse Ox 98.2 F 59 L 20 130/69 H 99 11/05/17 14:30 11/05/17 14:15 11/05/17 14:30 11/05/17 14:11 11/05/17 15:44 Intake & Output 11/04/17 11/05/17 11/06/17 06:59 06:59 06:59 Intake Total 4337 4300 Output Total 3425 5375 3340 Balance 912 -1075 -3340 Weight 191.9 kg 189.9 kg Exam: GENERAL: well-nourished and in no acute distress. Patient is intubated and sedated. Orientation cannot be checked. Patient however is noted to be alert. HEAD: Atraumatic, normocephalic. EYES: Pupils equal round and reactive to light, extraocular movements could not be checked, sclera anicteric, conjunctiva are normal. ENT: TMs normal, nares patent, oropharynx clear without exudates. Moist mucous membranes. No oral ulcerations or bleeding gums noted NECK: supple without lymphadenopathy or JVD. Trachea is central. No cervical or axillary lymphadenopathy noted. Carotids are 2+ LUNGS: Breath sounds mostly clear to auscultation patient is noted to have bibasal crackles at the extreme bases CHEST: Palpation of the chest wall shows no significant chest wall tenderness or abnormalities. 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 ABDOMEN: Soft, no significant tenderness appreciated, normoactive bowel sounds. No guarding, no rebound. No rigidity noted . No masses appreciated. EXTREMITIES: Pedal pulses are 1-2+, no calf tenderness noted, 1+ pedal edema noted. No clubbing or cyanosis. NEUROLOGICAL: The patient cannot participate in the neurological exam but no facial asymmetry noted. Extremities slightly hypotonic PSYCH: This cannot be evaluated. Patient cannot participate. SKIN: No significant ecchymosis, rash, or signs of pruritus noted. MUSCULOSKELETAL EXAM: No significant joint swelling noted. Patient cannot participate in musculoskeletal exam Results Laboratory Results: 11/05/17 06:20 11/05/17 06:20 11/05/17 11/05/17 06:20 06:20 WBC 10.6 H RBC 4.06 Hgb 10.5 L Hct 31.8 L MCV 78 L MCH 25.9 L MCHC 33.0 RDW 18.1 H Plt Count 213 Seg Neutrophils % 60.1 Lymphocytes % 32.2 Monocytes % 5.3 Eosinophils % 1.6 Basophils % 0.8 Absolute Neutrophils 6.4 Absolute Lymphocytes 3.4 Absolute Monocytes 0.6 Absolute Eosinophils 0.2 Absolute Basophils 0.1 Sodium 139.9 Potassium 4.3 Chloride 103 Carbon Dioxide 25 Anion Gap 12 BUN 34 H Creatinine 0.99 Est GFR ( Amer) > 60 Est GFR (Non-Af Amer) 55 L Glucose 90 Calcium 8.2 L 10/30/17 10/30/17 10/30/17 19:56 19:56 19:56 Creatine Kinase 75 CK-MB (CK-2) 2.28 Troponin I 0.447 NT-Pro-B Natriuret Pep 80931 H 10/31/17 10/31/17 10/31/17 01:42 01:42 07:16 Creatine Kinase 55 46 CK-MB (CK-2) 2.30 Troponin I 0.430 NT-Pro-B Natriuret Pep 10/31/17 11/01/17 07:16 05:01 Creatine Kinase CK-MB (CK-2) 2.18 Troponin I 0.399 0.340 NT-Pro-B Natriuret Pep EKG Comments: Telemetry strip shows sinus rhythm without any sustained tachycardia or bradycardia Impressions: PICC Line Insertion 10/31/17 00:00 IMPRESSION: SUCCESSFUL PLACEMENT OF A 5 FR DUAL LUMEN 46 CM PICC IN THE RIGHT BASILIC VEIN. Guidance Fluoroscopy 11/01/17 00:00 IMPRESSION: SUCCESSFUL PLACEMENT OF A 5 FR DUAL LUMEN 46 CM PICC IN THE RIGHT BASILIC VEIN. Interventional Vascular Procedure 11/01/17 00:00 IMPRESSION: SUCCESSFUL PLACEMENT OF A 5 FR DUAL LUMEN 46 CM PICC IN THE RIGHT BASILIC VEIN. Chest X-Ray 11/05/17 05:00 IMPRESSION: Persistent bibasilar alveolar infiltrates and effusions. No significant change. Assessment & Plan - Diagnosis (1) Acute respiratory failure with hypoxia and hypercapnia Is this a current diagnosis for this admission?: Yes (2) Elevated troponin I level Is this a current diagnosis for this admission?: Yes (3) Morbid obesity Is this a current diagnosis for this admission?: Yes (4) Diabetes mellitus type 2 in obese Is this a current diagnosis for this admission?: Yes (5) CHF (congestive heart failure) Qualifiers: Heart failure type: right-sided Is this a current diagnosis for this admission?: Yes (6) CKD (chronic kidney disease), stage III Is this a current diagnosis for this admission?: Yes - Notes Notes: Acute respiratory failure with predominantly hypercarbia with some hypoxemia: Most likely related to severe obesity, obesity hypoventilation syndrome, aggravated by CHF and possibly underlying COPD. Recommend following pulmonary recommendations. Patient being well managed also by dental equipment mechanic. Extubation is in plans. So far there has been no cardiac deterioration. Will continue to follow. Elevated troponin I level: Exact etiology not clear but could be related to respiratory failure secondary to severe hypercapnia, and some hypoxemia. Will recommend repeating EKGs. Morbid obesity: Patient will benefit from gradual weight loss and can be handled as an outpatient. Diabetes: Patient being well managed by dental equipment mechanic. CHF: [place] to be combination of right heart failure and diastolic dysfunction. Feel that this is acute on chronic. Continue diuretic therapy. Chronic kidney disease: Currently stable. - Time Time with patient: 15-25 minutes - CODE STATUS was discussed, patient remains full code. Surrogate decision-maker unchanged. Multiple medical problems were addressed. More than 50% of the time spent coordinating care, discussing management plans with involved caregivers. Management plans discussed with involved personnels. Medical decision making was of moderate to high complexity , patient's has multiple comorbidities. Medications reviewed and adjusted accordingly: Yes
[2017-11-05] MEDS: LEVOFLOXACIN 750 MG TABLET NG SCH (18:32)
[2017-11-05] MEDS ORDERED: PIPERACILLIN/TAZOBACTAM 3.375 GM VIAL IV ONE ×2 (18:38→18:42)
[2017-11-05] MEDS ORDERED: VANCOMYCIN HCL INJ 1000 MG VIAL ONE (18:38)
[2017-11-05] MEDS: PIPERACILLIN SODIUM/TAZOBACTAM 3.375 GM in NORMAL SALINE 100 ML IV SCH (18:42)
--- NOTE | 2017-11-05 22:03 | EKG REPORT ---
SEVERITY:- ABNORMAL ECG - SINUS RHYTHM NONSPECIFIC INTRAVENTRICULAR CONDUCTION DELAY PROBABLE INFERIOR INFARCT, AGE INDETERMINATE BORDERLINE R WAVE PROGRESSION, ANTERIOR LEADS NON SPECIFIC T INVERSION ANT LEADS : Confirmed by: Grazyna Herrera 05-Nov-2017 22:03:10
[2017-11-05] MEDS: ATORVASTATIN CALCIUM 10 MG TABLET NG SCH (22:30)
[2017-11-05] MEDS: PANTOPRAZOLE SODIUM 40 MG VIAL IV SCH (22:30)
[2017-11-06] MEDS: PROPOFOL 1,000 MG/100 ML INFUS..BTL IV PRN ×10 (00:13→22:40)
[2017-11-06] MEDS: NYSTATIN TOPICAL POWDER 15 GM TP SCH ×6 (01:32→22:40)
[2017-11-06] MEDS: PIPERACILLIN SODIUM/TAZOBACTAM 3.375 GM in NORMAL SALINE 100 ML IV SCH ×3 (01:33→17:01)
[2017-11-06] MEDS: IPRATROPIUM/ALBUTEROL 0.5-2.5 MG/3 ML AMPUL NEB SCH ×4 (02:53→20:24)
[2017-11-06] MEDS: GABAPENTIN 400 MG CAPSULE PO SCH ×2 (05:29→17:02)
[2017-11-06] MEDS: METHYLPREDNISOLONE INJ 40 MG/1 ML SDV IV SCH ×2 (05:29→22:40)
[2017-11-06] MEDS: LEVOTHYROXINE SODIUM 0.075 MG TABLET NG SCH (05:30)
[2017-11-06 05:41] LABS: ABSOLUTE EOSINOPHILS # (AUTO) 0.4 10^3/uL (0.0-0.6); ABSOLUTE LYMPHOCYTES (AUTO) 2.9 10^3/uL (0.5-4.7); ABSOLUTE MONOCYTES (AUTO) 0.7 10^3/uL (0.1-1.4); ABSOLUTE NEUT (AUTO) 7.2 10^3/uL (1.7-8.2); BASOPHILS % (AUTO) 0.3 % (0-2); EOSINOPHILS % (AUTO) 3.2 % (0-6); HEMATOCRIT 34.5 % (36.0-47.0); HEMOGLOBIN 11.1 g/dL (12.0-15.5); LYMPHOCYTES % (AUTO) 25.8 % (13-45); MEAN CORPUSCULAR HEMOGLOBIN 25.4 pg (27.0-33.4); MEAN CORPUSCULAR HGB CONC 32.1 g/dL (32.0-36.0); MEAN CORPUSCULAR VOLUME 79 fl (80-97); MONOCYTES % (AUTO) 6.6 % (3-13); PLATELET COUNT 222 10^3/uL (150-450); RED BLOOD COUNT 4.36 10^6/uL (3.72-5.28); RED CELL DISTRIBUTION WIDTH 17.5 % (11.5-14.0); SEGMENTED NEUTROPHILS % (AUTO) 64.1 % (42-78); TOTAL CELLS COUNTED % (AUTO) 100 %; WHITE BLOOD COUNT 11.2 10^3/uL (4.0-10.5)
[2017-11-06 06:12] LABS: ARTERIAL BLOOD BASE EXCESS -0.6 mmol/L; ARTERIAL BLOOD H2CO3 1.29 mmol/L (1.05-1.35); ARTERIAL BLOOD HCO3 24.7 mmol/L (20-26); ARTERIAL BLOOD O2 SATURATION 96.3 % (94-98); ARTERIAL BLOOD PH 7.38 (7.35-7.45); ARTERIAL BLOOD PO2 85.9 mmHg (80-100)
[2017-11-06 06:13] LABS: ARTERIAL BLOOD FIO2 35%
[2017-11-06 06:14] LABS: ANION GAP 10 (5-19); BLOOD UREA NITROGEN 31 mg/dL (7-20); CALCIUM 8.5 mg/dL (8.4-10.2); CARBON DIOXIDE 28 mmol/L (22-30); CHLORIDE 103 mmol/L (98-107); GLUCOSE 99 mg/dL (75-110); POTASSIUM 4.1 mmol/L (3.6-5.0); SODIUM 141.3 mmol/L (137-145)
--- NOTE | 2017-11-06 08:40 | RADIOLOGY REPORT (SQ) ---
EXAM DESCRIPTION: CHEST SINGLE VIEW COMPLETED DATE/TIME: 11/06/2017 7:20 am REASON FOR STUDY: on ventilator COMPARISON: None. EXAM PARAMETERS: NUMBER OF VIEWS: One view. TECHNIQUE: Single frontal radiographic view of the chest acquired. RADIATION DOSE: NA LIMITATIONS: None. FINDINGS: LUNGS AND PLEURA: Persistent unchanged bibasilar infiltrates with effusions. MEDIASTINUM AND HILAR STRUCTURES: No masses. Contour normal. HEART AND VASCULAR STRUCTURES: Heart normal in size. Normal vasculature. BONES: No acute findings. HARDWARE: Endotracheal tube above marcia. NG tube passing toward stomach. Right central venous PICC line overlying SVC. OTHER: Chest leads in place. IMPRESSION: Bibasilar infiltrates and effusions. No significant change. TECHNICAL DOCUMENTATION: JOB ID: [id number] [employer]- All Rights Reserved Reading location - IP/workstation name: [email or web address]
[2017-11-06] MEDS: ERGOCALCIFEROL (VITAMIN D2) 50000 UNIT (1.25 MG) CAPSULE PO SCH (09:08)
[2017-11-06] MEDS: FUROSEMIDE INJ/PF 40 MG/4 ML SDV IV SCH (09:08)
[2017-11-06] MEDS: CLONAZEPAM 1 MG TABLET NG SCH ×2 (09:09→22:39)
[2017-11-06] MEDS: SERTRALINE HCL 50 MG TABLET NG SCH (09:09)
[2017-11-06] MEDS: ENOXAPARIN SODIUM INJ 40 MG/0.4 ML DISP.SYRIN SUBCUT SCH (09:10)
[2017-11-06] MEDS: NORMAL SALINE 1000 ML 1,000 ML IV PRN (09:10)
[2017-11-06] MEDS: NORMAL SALINE 10 ML SDV (SCHEDULED) IV SCH ×2 (09:12→22:31)
--- NOTE | 2017-11-06 12:55 | PROGRESS NOTE E ---
Progress Note NAME: SERINA LEE : 1945 AGE: 71Y DATE: 11/06/2017 ROOM: 603 SUBJECTIVE: Patient is a 71-year-old female with history of respiratory failure requiring invasive mechanical ventilation, pulmonary edema, pneumonia of right lower lobe, morbid obesity, obesity hypoventilation syndrome. Patient tolerated OG tube feeding. There was no vomiting, no fevers spiked over the last 24 hours. Still has slightly yellow endotracheal tube secretions in the last 24 hours of a mild to moderate amount. There were no adverse events noted in the last 24 hours. OBJECTIVE: GENERAL: Patient is slightly sedated, afebrile, not in acute respiratory distress with a blood pressure of 105/67. Temperature is 97.7, pulse rate of 61, respirations 20, oxygen saturation is 95% on FiO2 of 35%, SIMV PRVC rate of 20, tidal volume of 450. Pressor support of 10. PEEP of 5. Peak airway pressure is 29-30. Plateau pressure is 25. Mechanical ventilation is 9-10. Tidal volume is 450 HEENT: Eyes: No jaundice or pallor. Ears, nose, and throat: No ear drainage or nasal discharge. CHEST/LUNGS: No wheezing noted bilaterally. Fine rhonchi, occasional. CARDIAC: S1, S2 distant. Normal rate. ABDOMEN: Flabby, positive bowel sounds, soft, nondistended, nontender. EXTREMITIES: No joint swelling. Erythema on the left leg which is currently wrapped with a dressing. LABORATORY: A CBC done today showed a white count of 11.2, hemoglobin is 11.1, hematocrit is 34.5, and platelet count is 222. Blood gas today showed pH of 7.38, PCO2 of 43, PO2 of 85.9, and ABG oxygen saturation 96.3. Chemistries: Sodium 151, potassium is 4.1, chloride 103, CO2 is 28, BUN is 31, creatinine 1.0, glucose 99, and calcium is 8.5. Chest x-ray done today showed no new infiltrates noted, opacity in right lung base, and cardiomegaly. Endotracheal tube is in place. The OG tube is in place. There is no pneumothorax noted. Pleural effusion may be noted on the left but it may be a minimal right pleural effusion may be present but also most likely minimal. ASSESSMENT: 1. ACUTE RESPIRATORY FAILURE REQUIRING INVASIVE MECHANICAL VENTILATION. CURRENTLY PATIENT HAS COPD. CURRENTLY WE ARE DOING A SPONTANEOUS BREATHING TRIAL. CURRENTLY WE ARE DOING SEDATION MEDICATION AND SPONTANEOUS BREATHING TRIAL. 2. PNEUMONIA, RIGHT LUNG. APPEARED TO BE STABLE. POSSIBLE MRSA. 3. URINARY TRACT INFECTION, E. COLI, CURRENTLY ON IV ZOSYN. PLAN AND RECOMMENDATIONS: 1. We will adjust ventilator setting this morning for spontaneous breathing trial. 2. Continue IV vancomycin, IV Zosyn and IV Levaquin 750 mg. 3. We will continue ventilated support. 4. We will do a repeat x-ray tomorrow, do a CBC, chemistry, and ABG tomorrow. DICTATING PHYSICIAN: ADRIAN GROVES MD,YELENA,MPH [id number] PHY#: [id number] ID: [id number] JOB#: [id number] ACCT: [id number] cc: > MTDD
[2017-11-06] MEDS ORDERED: VANCOMYCIN HCL 1,500 MG in DEXTROSE 5%-WATER 250 ML IV ONE (14:00)
--- NOTE | 2017-11-06 15:51 | PDOC PROGRESS REPORT ---
Subjective Progress Note for:: 11/06/17 Subjective:: No significant change from yesterday. Sedation is being gradually reduced in preparation for possible extubation later today or tomorrow. Patient however still on some sedation and currently still being intubated and receiving artificial ventilation. Patient remains intubated, sedated, patient however looks comfortable and in acute distress. Reason For Visit: ACUTE RESPIRATORY FAILURE WITH HYPERCAPNIA, Physical Exam Vital Signs: Temp Pulse Resp BP Pulse Ox 97.7 F 71 20 113/66 100 11/06/17 14:00 11/06/17 14:08 11/06/17 14:08 11/06/17 13:42 11/06/17 14:08 Intake & Output 11/05/17 11/06/17 11/07/17 06:59 06:59 06:59 Intake Total 4300 3847 Output Total 5320 6244 3250 Balance -4067 -4398 -1863 Weight 189.9 kg 189.9 kg Exam: GENERAL: well-nourished and in no acute distress. Patient is intubated and sedated. Orientation cannot be checked HEAD: Atraumatic, normocephalic. EYES: Pupils equal round and reactive to light, extraocular movements could not be checked, sclera anicteric, conjunctiva are normal. ENT: TMs normal, nares patent, oropharynx clear without exudates. Moist mucous membranes. No oral ulcerations or bleeding gums noted NECK: supple without lymphadenopathy or JVD. Trachea is central. No cervical or axillary lymphadenopathy noted. Carotids are 2+ LUNGS: Breath sounds mostly clear to auscultation patient is noted to have bibasal crackles at the extreme bases CHEST: Palpation of the chest wall shows no significant chest wall tenderness or abnormalities. HEART: [place] [employer]NER, No PSH, 2/6 ELLE aortic area, 1/6 vieyra systolic murmur mitral area , no rubs or gallops. ABDOMEN: Soft, no significant tenderness appreciated, normoactive bowel sounds. No guarding, no rebound. No rigidity noted . No masses appreciated. EXTREMITIES: Pedal pulses are 1-2+, no calf tenderness noted, 1+ pedal edema noted. No clubbing or cyanosis. NEUROLOGICAL: The patient cannot participate in the neurological exam but no facial asymmetry noted. Extremities slightly hypotonic PSYCH: This cannot be evaluated. Patient cannot participate. SKIN: No significant ecchymosis, rash, or signs of pruritus noted. MUSCULOSKELETAL EXAM: No significant joint swelling noted. Patient cannot participate in musculoskeletal exam Results Laboratory Results: 11/06/17 05:10 11/06/17 05:10 11/06/17 11/06/17 11/06/17 05:10 05:10 05:10 WBC 11.2 H RBC 4.36 Hgb 11.1 L Hct 34.5 L MCV 79 L MCH 25.4 L MCHC 32.1 RDW 17.5 H Plt Count 222 Seg Neutrophils % 64.1 Lymphocytes % 25.8 Monocytes % 6.6 Eosinophils % 3.2 Basophils % 0.3 Absolute Neutrophils 7.2 Absolute Lymphocytes 2.9 Absolute Monocytes 0.7 Absolute Eosinophils 0.4 Absolute Basophils 0.0 Carbonic Acid 1.29 HCO3/H2CO3 Ratio 19:1 ABG pH 7.38 ABG pCO2 43.0 ABG pO2 85.9 ABG HCO3 24.7 ABG O2 Saturation 96.3 ABG Base Excess -0.6 FiO2 35% Sodium 141.3 Potassium 4.1 Chloride 103 Carbon Dioxide 28 Anion Gap 10 BUN 31 H Creatinine 1.03 Est GFR ( Amer) > 60 Est GFR (Non-Af Amer) 53 L Glucose 99 Calcium 8.5 11/04/17 15:15 Tracheal Aspirate Gram Stain - Final 11/04/17 15:15 Tracheal Aspirate Sputum Culture - Final Mrsa (Meth Resis Staph Aureus) Normal Nancy Absent 10/30/17 10/30/17 10/30/17 19:56 19:56 19:56 Creatine Kinase 75 CK-MB (CK-2) 2.28 Troponin I 0.447 NT-Pro-B Natriuret Pep 97587 H 10/31/17 10/31/17 10/31/17 01:42 01:42 07:16 Creatine Kinase 55 46 CK-MB (CK-2) 2.30 Troponin I 0.430 NT-Pro-B Natriuret Pep 10/31/17 11/01/17 07:16 05:01 Creatine Kinase CK-MB (CK-2) 2.18 Troponin I 0.399 0.340 NT-Pro-B Natriuret Pep EKG Comments: Telemetry shows patient maintaining sinus rhythm. No significant cardiac dysrhythmia noted. Impressions: PICC Line Insertion 10/31/17 00:00 IMPRESSION: SUCCESSFUL PLACEMENT OF A 5 FR DUAL LUMEN 46 CM PICC IN THE RIGHT BASILIC VEIN. Guidance Fluoroscopy 11/01/17 00:00 IMPRESSION: SUCCESSFUL PLACEMENT OF A 5 FR DUAL LUMEN 46 CM PICC IN THE RIGHT BASILIC VEIN. Interventional Vascular Procedure 11/01/17 00:00 IMPRESSION: SUCCESSFUL PLACEMENT OF A 5 FR DUAL LUMEN 46 CM PICC IN THE RIGHT BASILIC VEIN. Chest X-Ray 11/06/17 05:00 IMPRESSION: Bibasilar infiltrates and effusions. No significant change. Assessment & Plan - Diagnosis (1) Acute respiratory failure with hypoxia and hypercapnia Is this a current diagnosis for this admission?: Yes (2) Elevated troponin I level Is this a current diagnosis for this admission?: Yes (3) Morbid obesity Is this a current diagnosis for this admission?: Yes (4) Diabetes mellitus type 2 in obese Is this a current diagnosis for this admission?: Yes (5) CHF (congestive heart failure) Qualifiers: Heart failure type: right-sided Is this a current diagnosis for this admission?: Yes (6) CKD (chronic kidney disease), stage III Is this a current diagnosis for this admission?: Yes - Notes Notes: No changes in cardiac condition. No significant change in pulmonary condition. Patient medications reviewed. Continue to follow. No significant cardiac dysrhythmia noted. Patient just in mild volume overload. Continue slow diuresis. Acute respiratory failure with predominantly hypercarbia with some hypoxemia: Most likely related to severe obesity, obesity hypoventilation syndrome, aggravated by CHF and possibly underlying COPD. Recommend following pulmonary recommendations. Patient being well managed also by junior financial analyst. Extubation is in plans. So far there has been no cardiac deterioration. Will continue to follow. Elevated troponin I level: Exact etiology not clear but could be related to respiratory failure secondary to severe hypercapnia, and some hypoxemia. Will recommend repeating EKGs. Morbid obesity: Patient will benefit from gradual weight loss and can be handled as an outpatient. Diabetes: Patient being well managed by junior financial analyst. CHF: [place] to be combination of right heart failure and diastolic dysfunction. Feel that this is acute on chronic. Continue diuretic therapy. Chronic kidney disease: Currently stable. - Time Time with patient: 15-25 minutes - CODE STATUS was discussed, patient remains full code. Surrogate decision-maker unchanged. Multiple medical problems were addressed. More than 50% of the time spent coordinating care, discussing management plans with involved caregivers. Management plans discussed with involved personnels. Medical decision making was of moderate to high complexity , patient's has multiple comorbidities. Medications reviewed and adjusted accordingly: Yes
--- NOTE | 2017-11-06 15:56 | PDOC PROGRESS REPORT ---
Subjective Progress Note for:: 11/06/17 Subjective:: Remain vent supported and sedated. No reported fever. Tolerating enteral feeding. Unsuccessful with weaning and extubation attempt. Patient may be in need of tracheostomy in near future if ventilatory support persist. Sputum culture grew MRSA. Reason For Visit: ACUTE RESPIRATORY FAILURE WITH HYPERCAPNIA, Physical Exam Vital Signs: Temp Pulse Resp BP Pulse Ox 97.7 F 71 20 113/66 100 11/06/17 14:00 11/06/17 14:08 11/06/17 14:08 11/06/17 13:42 11/06/17 14:08 Intake & Output 11/05/17 11/06/17 11/07/17 06:59 06:59 06:59 Intake Total 430 3847 Output Total 5352 7808 3256 Balance -1873 -3564 -3255 Weight 189.9 kg 189.9 kg Physical Exam: Intubated with ET and OG tubes in situ. General appearance: PRESENT: morbidly obese Head exam: PRESENT: atraumatic, normocephalic Eye exam: PRESENT: conjunctiva pink, EOMI, PERRLA. ABSENT: scleral icterus Mouth exam: PRESENT: moist Respiratory exam: PRESENT: decreased breath sounds - at lung bases Cardiovascular exam: PRESENT: RRR. ABSENT: diastolic murmur, rubs, systolic murmur Vascular exam: PRESENT: normal capillary refill. ABSENT: pallor GI/Abdominal exam: PRESENT: normal bowel sounds, soft. ABSENT: distended, guarding, mass, organomegaly, rebound, tenderness Extremities exam: PRESENT: pedal edema - minimal Neurological exam: PRESENT: altered - sedated on IV propofol Skin exam: PRESENT: dry, warm, other - dressing over left foot and leg ulcer satisfactory Results Laboratory Results: 11/06/17 05:10 11/06/17 05:10 11/06/17 11/06/17 11/06/17 05:10 05:10 05:10 WBC 11.2 H RBC 4.36 Hgb 11.1 L Hct 34.5 L MCV 79 L MCH 25.4 L MCHC 32.1 RDW 17.5 H Plt Count 222 Seg Neutrophils % 64.1 Lymphocytes % 25.8 Monocytes % 6.6 Eosinophils % 3.2 Basophils % 0.3 Absolute Neutrophils 7.2 Absolute Lymphocytes 2.9 Absolute Monocytes 0.7 Absolute Eosinophils 0.4 Absolute Basophils 0.0 Carbonic Acid 1.29 HCO3/H2CO3 Ratio 19:1 ABG pH 7.38 ABG pCO2 43.0 ABG pO2 85.9 ABG HCO3 24.7 ABG O2 Saturation 96.3 ABG Base Excess -0.6 FiO2 35% Sodium 141.3 Potassium 4.1 Chloride 103 Carbon Dioxide 28 Anion Gap 10 BUN 31 H Creatinine 1.03 Est GFR ( Amer) > 60 Est GFR (Non-Af Amer) 53 L Glucose 99 Calcium 8.5 11/04/17 15:15 Tracheal Aspirate Gram Stain - Final 11/04/17 15:15 Tracheal Aspirate Sputum Culture - Final Mrsa (Meth Resis Staph Aureus) Normal Nancy Absent 10/30/17 10/30/17 10/30/17 19:56 19:56 19:56 Creatine Kinase 75 CK-MB (CK-2) 2.28 Troponin I 0.447 NT-Pro-B Natriuret Pep 17019 H 10/31/17 10/31/17 10/31/17 01:42 01:42 07:16 Creatine Kinase 55 46 CK-MB (CK-2) 2.30 Troponin I 0.430 NT-Pro-B Natriuret Pep 10/31/17 11/01/17 07:16 05:01 Creatine Kinase CK-MB (CK-2) 2.18 Troponin I 0.399 0.340 NT-Pro-B Natriuret Pep Impressions: PICC Line Insertion 10/31/17 00:00 IMPRESSION: SUCCESSFUL PLACEMENT OF A 5 FR DUAL LUMEN 46 CM PICC IN THE RIGHT BASILIC VEIN. Guidance Fluoroscopy 11/01/17 00:00 IMPRESSION: SUCCESSFUL PLACEMENT OF A 5 FR DUAL LUMEN 46 CM PICC IN THE RIGHT BASILIC VEIN. Interventional Vascular Procedure 11/01/17 00:00 IMPRESSION: SUCCESSFUL PLACEMENT OF A 5 FR DUAL LUMEN 46 CM PICC IN THE RIGHT BASILIC VEIN. Chest X-Ray 11/06/17 05:00 IMPRESSION: Bibasilar infiltrates and effusions. No significant change. Assessment & Plan - Diagnosis (1) Acute respiratory failure with hypercapnia Is this a current diagnosis for this admission?: Yes (2) Obesity hypoventilation syndrome Is this a current diagnosis for this admission?: Yes (3) Right middle lobe pneumonia Qualifiers: Pneumonia type: due to unspecified organism Qualified Code(s): J18.1 - Lobar pneumonia, unspecified organism Is this a current diagnosis for this admission?: Yes (4) Diabetes mellitus type 2 in obese Is this a current diagnosis for this admission?: Yes (5) Chronic venous hypertension (idiopathic) with ulcer and inflammation of bilateral lower extremity Is this a current diagnosis for this admission?: Yes (6) Morbid obesity with BMI of 70 and over, adult Is this a current diagnosis for this admission?: Yes - Time Time Spent with patient: 25-34 minutes Medications reviewed and adjusted accordingly: Yes Within: Other - Inpatient Certification Based on my medical assessment, after consideration of the patient's comorbidities, presenting symptoms, or acuity I expect that the services needed warrant INPATIENT care.: Yes I certify that my determination is in accordance with my understanding of Medicare's requirements for reasonable and necessary INPATIENT services [42 CFR 412.3e].: Yes Medical Necessity: Need Close Monitoring Due to Risk of Patient Decompensation, Need For IV Fluids, Need For Continuous Telemetry Monitoring, Need for Nebulizer Therapy and Monitoring of Response, Need for IV Antibiotics, Risk of Complication if Not Cared For in Hospital Post Hospital Care: D/C or Transfer Summary - Plan Summary Plan Summary: Continue current mediation management. Overall prognosis remain guarded.
[2017-11-06] MEDS: LEVOFLOXACIN 750 MG TABLET NG SCH (17:02)
[2017-11-06] MEDS: ATORVASTATIN CALCIUM 10 MG TABLET NG SCH (22:39)
[2017-11-07] MEDS: PROPOFOL 1,000 MG/100 ML INFUS..BTL IV PRN ×5 (00:15→21:02)
[2017-11-07] MEDS: MORPHINE SULFATE 10 MG/ML INJ IV PRN (00:31)
[2017-11-07] MEDS: IPRATROPIUM/ALBUTEROL 0.5-2.5 MG/3 ML AMPUL NEB SCH ×4 (01:33→20:22)
[2017-11-07] MEDS: PIPERACILLIN SODIUM/TAZOBACTAM 3.375 GM in NORMAL SALINE 100 ML IV SCH ×3 (02:02→17:33)
[2017-11-07] MEDS: NYSTATIN TOPICAL POWDER 15 GM TP SCH ×4 (02:03→14:26)
[2017-11-07] MEDS: LEVOTHYROXINE SODIUM 0.075 MG TABLET NG SCH (05:57)
[2017-11-07] MEDS: GABAPENTIN 400 MG CAPSULE PO SCH ×2 (05:57→17:32)
[2017-11-07 08:13] LABS: ABSOLUTE EOSINOPHILS # (AUTO) 0.2 10^3/uL (0.0-0.6); ABSOLUTE LYMPHOCYTES (AUTO) 1.8 10^3/uL (0.5-4.7); ABSOLUTE MONOCYTES (AUTO) 0.6 10^3/uL (0.1-1.4); ABSOLUTE NEUT (AUTO) 12.5 10^3/uL (1.7-8.2); BASOPHILS % (AUTO) 0.3 % (0-2); EOSINOPHILS % (AUTO) 1.6 % (0-6); HEMATOCRIT 35.6 % (36.0-47.0); HEMOGLOBIN 11.3 g/dL (12.0-15.5); MEAN CORPUSCULAR HGB CONC 31.8 g/dL (32.0-36.0); MEAN CORPUSCULAR VOLUME 79 fl (80-97); PLATELET COUNT 222 10^3/uL (150-450); RED BLOOD COUNT 4.54 10^6/uL (3.72-5.28); RED CELL DISTRIBUTION WIDTH 17.7 % (11.5-14.0); SEGMENTED NEUTROPHILS % (AUTO) 82.1 % (42-78); TOTAL CELLS COUNTED % (AUTO) 100 %; WHITE BLOOD COUNT 15.2 10^3/uL (4.0-10.5)
--- NOTE | 2017-11-07 08:31 | RADIOLOGY REPORT (SQ) ---
EXAM DESCRIPTION: CHEST SINGLE VIEW COMPLETED DATE/TIME: 11/07/2017 6:13 am REASON FOR STUDY: on ventilator COMPARISON: 11/06/2017 NUMBER OF VIEWS: One view. TECHNIQUE: Single frontal radiographic image of the chest acquired. LIMITATIONS: None. FINDINGS: LUNGS AND PLEURA: Bilateral pleural effusions and associated airspace disease not signific antly changed. No pneumothorax. MEDIASTINUM AND HILAR STRUCTURES: Stable heart size and mediastinal structures. HEART AND VASCULAR STRUCTURES: Stable appearance. SUPPORT DEVICES: Appropriate location without change. BONES: No acute findings. OTHER: No other significant finding. IMPRESSION: Edema or sepsis. No significant change. TECHNICAL DOCUMENTATION: JOB ID: [id number] [employer]- All Rights Reserved Reading location - IP/workstation name: [email or web address]
[2017-11-07 08:40] LABS: ANION GAP 12 (5-19); BLOOD UREA NITROGEN 29 mg/dL (7-20); CALCIUM 8.5 mg/dL (8.4-10.2); CARBON DIOXIDE 24 mmol/L (22-30); CHLORIDE 104 mmol/L (98-107); GLUCOSE 106 mg/dL (75-110); POTASSIUM 3.9 mmol/L (3.6-5.0); SODIUM 140.3 mmol/L (137-145)
[2017-11-07 08:46] LABS: ARTERIAL BLOOD BASE EXCESS 0 mmol/L; ARTERIAL BLOOD FIO2 40%; ARTERIAL BLOOD H2CO3 1.21 mmol/L (1.05-1.35); ARTERIAL BLOOD HCO3 24.7 mmol/L (20-26); ARTERIAL BLOOD O2 SATURATION 95.8 % (94-98); ARTERIAL BLOOD PCO2 40.3 mmHg (35-45); ARTERIAL BLOOD PH 7.41 (7.35-7.45); ARTERIAL BLOOD PO2 79.7 mmHg (80-100); ARTERIAL BLOOD TOTAL CO2 25.9 mmol/L (21-25)
[2017-11-07] MEDS: ENOXAPARIN SODIUM INJ 40 MG/0.4 ML DISP.SYRIN SUBCUT SCH (09:51)
[2017-11-07] MEDS: CLONAZEPAM 1 MG TABLET NG SCH ×2 (09:51→21:32)
[2017-11-07] MEDS: FUROSEMIDE INJ/PF 40 MG/4 ML SDV IV SCH (09:52)
[2017-11-07] MEDS: SERTRALINE HCL 50 MG TABLET NG SCH (09:53)
[2017-11-07] MEDS: METHYLPREDNISOLONE INJ 40 MG/1 ML SDV IV SCH ×2 (09:53→21:32)
[2017-11-07] MEDS: VANCOMYCIN HCL 1,500 MG in DEXTROSE 5%-WATER 250 ML IV SCH (09:53)
[2017-11-07] MEDS ORDERED: VANCOMYCIN HCL INJ 1000 MG VIAL IV SCH (10:00)
[2017-11-07] MEDS: NORMAL SALINE 1000 ML 1,000 ML IV PRN (16:03)
--- NOTE | 2017-11-07 20:35 | PDOC PROGRESS REPORT ---
Subjective Progress Note for:: 11/07/17 Subjective:: No significant change from yesterday. Sedation is being gradually reduced in preparation for possible extubation later today or tomorrow. Patient however still on some sedation and currently still being intubated and receiving artificial ventilation. Patient remains intubated, sedated, patient however looks comfortable and in acute distress. Reason For Visit: ACUTE RESPIRATORY FAILURE WITH HYPERCAPNIA, Physical Exam Vital Signs: Temp Pulse Resp BP Pulse Ox 99.3 F 96 15 122/64 96 11/07/17 20:00 11/07/17 14:12 11/07/17 18:00 11/07/17 17:42 11/07/17 18:00 Intake & Output 11/06/17 11/07/17 11/08/17 06:59 06:59 06:59 Intake Total 3847 4268 1179 Output Total 6285 5425 2550 [facility] -2438 -1157 -1371 Weight 189.9 kg 185.5 kg Results Laboratory Results: 11/07/17 07:45 11/07/17 07:45 11/07/17 11/07/17 11/07/17 07:45 07:45 07:50 WBC 15.2 H RBC 4.54 Hgb 11.3 L Hct 35.6 L MCV 79 L MCH 25.0 L MCHC 31.8 L RDW 17.7 H Plt Count 222 Seg Neutrophils % 82.1 H Lymphocytes % 12.0 L Monocytes % 4.0 Eosinophils % 1.6 Basophils % 0.3 Absolute Neutrophils 12.5 H Absolute Lymphocytes 1.8 Absolute Monocytes 0.6 Absolute Eosinophils 0.2 Absolute Basophils 0.0 Carbonic Acid Cancelled HCO3/H2CO3 Ratio Cancelled ABG pH Cancelled ABG pCO2 Cancelled ABG pO2 Cancelled ABG HCO3 Cancelled ABG O2 Saturation Cancelled ABG Base Excess Cancelled FiO2 Cancelled Sodium 140.3 Potassium 3.9 Chloride 104 Carbon Dioxide 24 Anion Gap 12 BUN 29 H Creatinine 0.98 Est GFR ( Amer) > 60 Est GFR (Non-Af Amer) 56 L Glucose 106 Calcium 8.5 11/07/17 08:20 WBC RBC Hgb Hct MCV MCH MCHC RDW Plt Count Seg Neutrophils % Lymphocytes % Monocytes % Eosinophils % Basophils % Absolute Neutrophils Absolute Lymphocytes Absolute Monocytes Absolute Eosinophils Absolute Basophils Carbonic Acid 1.21 HCO3/H2CO3 Ratio 20:1 ABG pH 7.41 ABG pCO2 40.3 ABG pO2 79.7 L ABG HCO3 24.7 ABG O2 Saturation 95.8 ABG Base Excess 0 FiO2 40% Sodium Potassium Chloride Carbon Dioxide Anion Gap BUN Creatinine Est GFR ( Amer) Est GFR (Non-Af Amer) Glucose Calcium 10/30/17 10/30/17 10/30/17 19:56 19:56 19:56 Creatine Kinase 75 CK-MB (CK-2) 2.28 Troponin I 0.447 NT-Pro-B Natriuret Pep 00170 H 10/31/17 10/31/17 10/31/17 01:42 01:42 07:16 Creatine Kinase 55 46 CK-MB (CK-2) 2.30 Troponin I 0.430 NT-Pro-B Natriuret Pep 10/31/17 11/01/17 07:16 05:01 Creatine Kinase CK-MB (CK-2) 2.18 Troponin I 0.399 0.340 NT-Pro-B Natriuret Pep Impressions: PICC Line Insertion 10/31/17 00:00 IMPRESSION: SUCCESSFUL PLACEMENT OF A 5 FR DUAL LUMEN 46 CM PICC IN THE RIGHT BASILIC VEIN. Guidance Fluoroscopy 11/01/17 00:00 IMPRESSION: SUCCESSFUL PLACEMENT OF A 5 FR DUAL LUMEN 46 CM PICC IN THE RIGHT BASILIC VEIN. Interventional Vascular Procedure 11/01/17 00:00 IMPRESSION: SUCCESSFUL PLACEMENT OF A 5 FR DUAL LUMEN 46 CM PICC IN THE RIGHT BASILIC VEIN. Chest X-Ray 11/07/17 05:00 IMPRESSION: Edema or sepsis. No significant change. Assessment & Plan - Diagnosis (1) Acute respiratory failure with hypoxia and hypercapnia Is this a current diagnosis for this admission?: Yes (2) Elevated troponin I level Is this a current diagnosis for this admission?: Yes (3) Morbid obesity Is this a current diagnosis for this admission?: Yes (4) Diabetes mellitus type 2 in obese Is this a current diagnosis for this admission?: Yes (5) CHF (congestive heart failure) Qualifiers: Heart failure type: right-sided Is this a current diagnosis for this admission?: Yes (6) CKD (chronic kidney disease), stage III Is this a current diagnosis for this admission?: Yes - Notes Notes: Patient still intubated and sedated seen as of this morning. Continue supportive care. No new recommendations today. Continue current management plans Acute respiratory failure with predominantly hypercarbia with some hypoxemia: Most likely related to severe obesity, obesity hypoventilation syndrome, aggravated by CHF and possibly underlying COPD. Recommend following pulmonary recommendations. Patient being well managed also by division supervisor. Extubation is in plans. So far there has been no cardiac deterioration. Will continue to follow. Elevated troponin I level: Exact etiology not clear but could be related to respiratory failure secondary to severe hypercapnia, and some hypoxemia. Morbid obesity: Patient will benefit from gradual weight loss and can be handled as an outpatient. Diabetes: Patient being well managed by division supervisor. CHF: [place] to be combination of right heart failure and diastolic dysfunction. Feel that this is acute on chronic. Continue diuretic therapy. Chronic kidney disease: Currently stable. - Time Time with patient: 15-25 minutes - CODE STATUS was discussed, patient remains full code. Surrogate decision-maker unchanged. Multiple medical problems were addressed. More than 50% of the time spent coordinating care, discussing management plans with involved caregivers. Management plans discussed with involved personnels. Medical decision making was of moderate to high complexity , patient's has multiple comorbidities. Medications reviewed and adjusted accordingly: Yes
[2017-11-07] MEDS: ATORVASTATIN CALCIUM 10 MG TABLET NG SCH (21:32)
[2017-11-07] MEDS: NORMAL SALINE 10 ML SDV (SCHEDULED) IV SCH (21:39)
--- NOTE | 2017-11-07 21:47 | PDOC PROGRESS REPORT ---
Subjective Progress Note for:: 11/07/17 Subjective:: Patient is on light sedation still on mechanical ventilation Reason For Visit: ACUTE RESPIRATORY FAILURE WITH HYPERCAPNIA, Physical Exam Vital Signs: Temp Pulse Resp BP Pulse Ox 99.3 F 96 15 122/64 96 11/07/17 21:44 11/07/17 14:12 11/07/17 18:00 11/07/17 17:42 11/07/17 18:00 Intake & Output 11/06/17 11/07/17 11/08/17 06:59 06:59 06:59 Intake Total 4867 4268 1179 Output Total 6285 5425 2750 Balance -6588 -4155 -8908 Weight 189.9 kg 185.5 kg General appearance: PRESENT: obese Eye exam: PRESENT: PERRLA Respiratory exam: PRESENT: wheezes Cardiovascular exam: PRESENT: +S1, +S2 GI/Abdominal exam: PRESENT: soft Neurological exam: PRESENT: alert Results Laboratory Results: 11/07/17 07:45 11/07/17 07:45 11/07/17 11/07/17 11/07/17 07:45 07:45 07:50 WBC 15.2 H RBC 4.54 Hgb 11.3 L Hct 35.6 L MCV 79 L MCH 25.0 L MCHC 31.8 L RDW 17.7 H Plt Count 222 Seg Neutrophils % 82.1 H Lymphocytes % 12.0 L Monocytes % 4.0 Eosinophils % 1.6 Basophils % 0.3 Absolute Neutrophils 12.5 H Absolute Lymphocytes 1.8 Absolute Monocytes 0.6 Absolute Eosinophils 0.2 Absolute Basophils 0.0 Carbonic Acid Cancelled HCO3/H2CO3 Ratio Cancelled ABG pH Cancelled ABG pCO2 Cancelled ABG pO2 Cancelled ABG HCO3 Cancelled ABG O2 Saturation Cancelled ABG Base Excess Cancelled FiO2 Cancelled Sodium 140.3 Potassium 3.9 Chloride 104 Carbon Dioxide 24 Anion Gap 12 BUN 29 H Creatinine 0.98 Est GFR ( Amer) > 60 Est GFR (Non-Af Amer) 56 L Glucose 106 Calcium 8.5 11/07/17 08:20 WBC RBC Hgb Hct MCV MCH MCHC RDW Plt Count Seg Neutrophils % Lymphocytes % Monocytes % Eosinophils % Basophils % Absolute Neutrophils Absolute Lymphocytes Absolute Monocytes Absolute Eosinophils Absolute Basophils Carbonic Acid 1.21 HCO3/H2CO3 Ratio 20:1 ABG pH 7.41 ABG pCO2 40.3 ABG pO2 79.7 L ABG HCO3 24.7 ABG O2 Saturation 95.8 ABG Base Excess 0 FiO2 40% Sodium Potassium Chloride Carbon Dioxide Anion Gap BUN Creatinine Est GFR ( Amer) Est GFR (Non-Af Amer) Glucose Calcium 10/30/17 10/30/17 10/30/17 19:56 19:56 19:56 Creatine Kinase 75 CK-MB (CK-2) 2.28 Troponin I 0.447 NT-Pro-B Natriuret Pep 51483 H 10/31/17 10/31/17 10/31/17 01:42 01:42 07:16 Creatine Kinase 55 46 CK-MB (CK-2) 2.30 Troponin I 0.430 NT-Pro-B Natriuret Pep 10/31/17 11/01/17 07:16 05:01 Creatine Kinase CK-MB (CK-2) 2.18 Troponin I 0.399 0.340 NT-Pro-B Natriuret Pep Impressions: PICC Line Insertion 10/31/17 00:00 IMPRESSION: SUCCESSFUL PLACEMENT OF A 5 FR DUAL LUMEN 46 CM PICC IN THE RIGHT BASILIC VEIN. Guidance Fluoroscopy 11/01/17 00:00 IMPRESSION: SUCCESSFUL PLACEMENT OF A 5 FR DUAL LUMEN 46 CM PICC IN THE RIGHT BASILIC VEIN. Interventional Vascular Procedure 11/01/17 00:00 IMPRESSION: SUCCESSFUL PLACEMENT OF A 5 FR DUAL LUMEN 46 CM PICC IN THE RIGHT BASILIC VEIN. Chest X-Ray 11/07/17 05:00 IMPRESSION: Edema or sepsis. No significant change. Assessment & Plan - Diagnosis (1) Acute respiratory failure with hypoxia and hypercapnia Is this a current diagnosis for this admission?: Yes (2) Acute diastolic (congestive) heart failure Is this a current diagnosis for this admission?: Yes (3) Morbid obesity with BMI of 70 and over, adult Is this a current diagnosis for this admission?: Yes (4) Obesity hypoventilation syndrome Is this a current diagnosis for this admission?: Yes (5) Elevated troponin Is this a current diagnosis for this admission?: Yes (6) Chronic venous hypertension (idiopathic) with ulcer and inflammation of bilateral lower extremity Is this a current diagnosis for this admission?: Yes (7) Right middle lobe pneumonia Qualifiers: Pneumonia type: due to unspecified organism Qualified Code(s): J18.1 - Lobar pneumonia, unspecified organism Is this a current diagnosis for this admission?: Yes (8) E. coli UTI Is this a current diagnosis for this admission?: Yes (9) MRSA pneumonia Qualifiers: Laterality: unspecified laterality Lung location: unspecified part of lung Qualified Code(s): J15.212 - Pneumonia due to Methicillin resistant Staphylococcus aureus Is this a current diagnosis for this admission?: Yes (10) Morbid obesity Is this a current diagnosis for this admission?: Yes - Plan Summary Plan Summary: Continue vent support continue IV antibiotic
[2017-11-08] MEDS: IPRATROPIUM/ALBUTEROL 0.5-2.5 MG/3 ML AMPUL NEB SCH ×3 (01:12→13:48)
[2017-11-08] MEDS: NORMAL SALINE 1000 ML 1,000 ML IV PRN ×2 (01:35→21:27)
[2017-11-08] MEDS: PIPERACILLIN SODIUM/TAZOBACTAM 3.375 GM in NORMAL SALINE 100 ML IV SCH ×3 (02:36→17:16)
[2017-11-08] MEDS: LEVOTHYROXINE SODIUM 0.075 MG TABLET NG SCH (05:40)
[2017-11-08] MEDS: GABAPENTIN 400 MG CAPSULE PO SCH ×2 (05:40→17:16)
[2017-11-08 07:12] LABS: ABSOLUTE LYMPHOCYTES (AUTO) 1.4 10^3/uL (0.5-4.7); ABSOLUTE MONOCYTES (AUTO) 0.4 10^3/uL (0.1-1.4); ABSOLUTE NEUT (AUTO) 11.1 10^3/uL (1.7-8.2); BASOPHILS % (AUTO) 0.1 % (0-2); EOSINOPHILS % (AUTO) 0.2 % (0-6); HEMATOCRIT 30.9 % (36.0-47.0); HEMOGLOBIN 9.8 g/dL (12.0-15.5); LYMPHOCYTES % (AUTO) 10.6 % (13-45); MEAN CORPUSCULAR HEMOGLOBIN 25.3 pg (27.0-33.4); MEAN CORPUSCULAR HGB CONC 31.9 g/dL (32.0-36.0); MEAN CORPUSCULAR VOLUME 79 fl (80-97); MONOCYTES % (AUTO) 3.2 % (3-13); PLATELET COUNT 215 10^3/uL (150-450); RED BLOOD COUNT 3.89 10^6/uL (3.72-5.28); RED CELL DISTRIBUTION WIDTH 17.3 % (11.5-14.0); SEGMENTED NEUTROPHILS % (AUTO) 85.9 % (42-78); TOTAL CELLS COUNTED % (AUTO) 100 %; WHITE BLOOD COUNT 12.9 10^3/uL (4.0-10.5)
[2017-11-08 07:38] LABS: ANION GAP 12 (5-19); BLOOD UREA NITROGEN 24 mg/dL (7-20); CALCIUM 7.5 mg/dL (8.4-10.2); CARBON DIOXIDE 23 mmol/L (22-30); CHLORIDE 109 mmol/L (98-107); GLUCOSE 113 mg/dL (75-110); POTASSIUM 3.4 mmol/L (3.6-5.0); SODIUM 143.6 mmol/L (137-145)
--- NOTE | 2017-11-08 08:49 | RADIOLOGY REPORT (SQ) ---
EXAM DESCRIPTION: CHEST SINGLE VIEW COMPLETED DATE/TIME: 11/08/2017 6:19 am REASON FOR STUDY: on ventilator COMPARISON: 11/07/2017 NUMBER OF VIEWS: One view. TECHNIQUE: Single frontal radiographic image of the chest acquired. LIMITATIONS: None. FINDINGS: LUNGS AND PLEURA: Bilateral pleural effusions and associated airspace disease do not appea r significantly changed. No pneumothorax. MEDIASTINUM AND HILAR STRUCTURES: Stable heart size and mediastinal structures. HEART AND VASCULAR STRUCTURES: Stable appearance. SUPPORT DEVICES: Appropriate location without change. BONES: No acute findings. OTHER: No other significant finding. IMPRESSION: Edema or sepsis. No significant change. TECHNICAL DOCUMENTATION: JOB ID: [id number] [employer]- All Rights Reserved Reading location - IP/workstation name: [email or web address]
[2017-11-08] MEDS: METHYLPREDNISOLONE INJ 40 MG/1 ML SDV IV SCH ×2 (09:37→21:24)
[2017-11-08] MEDS: SERTRALINE HCL 50 MG TABLET NG SCH (09:38)
[2017-11-08] MEDS: VANCOMYCIN HCL 1,500 MG in DEXTROSE 5%-WATER 250 ML IV SCH ×2 (09:38→10:55)
[2017-11-08] MEDS: FUROSEMIDE INJ/PF 40 MG/4 ML SDV IV SCH (09:38)
[2017-11-08] MEDS: ENOXAPARIN SODIUM INJ 40 MG/0.4 ML DISP.SYRIN SUBCUT SCH (09:38)
[2017-11-08] MEDS: CLONAZEPAM 1 MG TABLET NG SCH ×2 (09:41→21:25)
[2017-11-08 10:34] LABS: VANCOMYCIN,TROUGH 10.5 ug/mL (5.0-20.0)
--- NOTE | 2017-11-08 12:41 | PROGRESS NOTE E ---
Progress Note NAME: SERINA LEE : 1945 AGE: 71Y DATE: 11/07/2017 ROOM: 603 SUBJECTIVE: The patient is a 71-year-old female who came in with acute respiratory failure requiring invasive mechanical ventilation, morbid obesity, obesity hypoventilation syndrome, pneumonia, MRSA left lower extremity wound, and E. coli urosepsis. The patient was off sedation since this morning. The patient was not fully awake until tonight around 8:00. Performed spontaneous breathing trial using a SIMV rate of 2, pressor support of 10, PEEP of 6, FiO2 of 35%. The patient tolerated this supervised breathing trial. Plan to perform supervised breathing trial again tomorrow morning. If the patient does well, then we will extubate the patient, if patient remains stable throughout the night. No vomiting. Had some watery stool this morning. Stool was sent for C. diff, and stool was negative for C. diff. this morning. OG tube feeding was held. Will try to reintroduce the OG tube feeding again tonight at a lower rate. OBJECTIVE: GENERAL: The patient appeared to be awake. Still weak. Not in acute respiratory distress. VITAL SIGNS: Temperature 99.3, T-max 99.3. Heart rate 90, respirations 15-16, saturation 96% on 30% FiO2, SIMV rate of 18, tidal volume of 450, pressor support of 10, PEEP of 5. Peak airway pressure is 31 and minute ventilation 7.4. EYES: No jaundice or pallor. EARS, NOSE, THROAT: No ear drainage or nasal discharge. CHEST/LUNGS: No wheezing. No rhonchi, no coarse crackles. CARDIOVASCULAR: S1, S2 distant. No murmur. ABDOMEN: Flabby. Positive bowel sounds, nondistended, nontender. EXTREMITIES: No joint swelling. Wound on the left lower extremity appeared covered with dressing. LABORATORY: CBC done today showed white count of 15.2, up from 11.2 yesterday. Hemoglobin 11.3, hematocrit 35.6, platelet count 222. ABG done this morning showed pH of 7.41, pCO2 of 14, pO2 of 79.7, saturation 95.8. Chemistries this morning showed sodium 114, potassium 3.9, chloride 104, CO2 of 24, BUN 29, creatinine 0.98. Glucose 106. Calcium 8.5. Chest x-ray today showed no pneumothorax. ASSESSMENT: 1. ACUTE RESPIRATORY FAILURE REQUIRING INVASIVE MECHANICAL VENTILATION. Appears to be improving, but not ready to be extubated for tonight. Will consider supervised breathing trial again tomorrow, and if the patient does well, then will plan to extubate her and discontinue the invasive mechanical ventilation. 2. PNEUMONIA, METHICILLIN RESISTANT STAPHYLOCOCCUS AUREUS. 3. ESCHERICHIA COLI URINARY TRACT INFECTION/UROSEPSIS. Appears to be improving. 4. HISTORY OF CONGESTIVE HEART FAILURE/PULMONARY EDEMA. 5. MORBID OBESITY/OBESITY HYPOVENTILATION SYNDROME. PLAN: 1. Will do supervised breathing trial again tomorrow after sedation medication. Instructed the nurse to provide patient only very light sedation for tonight, so that we can wake the patient up tomorrow morning. When fully awake, will plan to do a supervised breathing trial again. 2. Continue intravenous antibiotics for now. 3. Will start OG tube feeding at 20 mL per hour. Discussed treatment plan with primary care physician, Dr. De La Rosa. DICTATING PHYSICIAN: ADRIAN GROVES MD,YELENA,MPH [id number] PHY#: [id number] ID: [id number] JOB#: [id number] ACCT: [id number] cc: > MTDD
[2017-11-08] MEDS ORDERED: POTASSI CL 20 MEQ/50 ML RIDER 20 MEQ/50 ML RTUPB IV ONE (13:45)
[2017-11-08 14:51] LABS: ARTERIAL BLOOD BASE EXCESS 1.8 mmol/L; ARTERIAL BLOOD H2CO3 1.68 mmol/L (1.05-1.35); ARTERIAL BLOOD HCO3 28.7 mmol/L (20-26); ARTERIAL BLOOD O2 SATURATION 95.4 % (94-98); ARTERIAL BLOOD PCO2 55.9 mmHg (35-45); ARTERIAL BLOOD PH 7.33 (7.35-7.45); ARTERIAL BLOOD PO2 83.5 mmHg (80-100); ARTERIAL BLOOD TOTAL CO2 30.5 mmol/L (21-25)
[2017-11-08 14:54] LABS: ARTERIAL BLOOD FIO2 40%
[2017-11-08 17:39] LABS: ANION GAP 13 (5-19); BLOOD UREA NITROGEN 26 mg/dL (7-20); CALCIUM 8.8 mg/dL (8.4-10.2); CARBON DIOXIDE 26 mmol/L (22-30); CHLORIDE 104 mmol/L (98-107); GLUCOSE 127 mg/dL (75-110); POTASSIUM 4.1 mmol/L (3.6-5.0); SODIUM 142.8 mmol/L (137-145)
[2017-11-08] MEDS: PROPOFOL 1,000 MG/100 ML INFUS..BTL IV PRN ×2 (19:00→20:48)
--- NOTE | 2017-11-08 21:03 | PDOC PROGRESS REPORT ---
Subjective Progress Note for:: 11/08/17 Subjective:: She seems to be tolerating the weaning trials very well Reason For Visit: ACUTE RESPIRATORY FAILURE WITH HYPERCAPNIA, Physical Exam Vital Signs: Temp Pulse Resp BP Pulse Ox 98.8 F 63 16 104/64 95 11/08/17 19:50 11/08/17 19:46 11/08/17 19:01 11/08/17 19:01 11/08/17 19:01 Intake & Output 11/07/17 11/08/17 11/09/17 06:59 06:59 06:59 Intake Total 4267 9527 1473 Output Total 5407 7652 2930 Balance -1157 427 -1457 Weight 185.5 kg 186.4 kg General appearance: PRESENT: morbidly obese Eye exam: PRESENT: PERRLA Respiratory exam: PRESENT: wheezes Cardiovascular exam: PRESENT: +S1, +S2 GI/Abdominal exam: PRESENT: soft Results Laboratory Results: 11/08/17 06:12 11/08/17 16:35 11/08/17 11/08/17 11/08/17 06:12 06:12 14:15 WBC 12.9 H RBC 3.89 Hgb 9.8 L Hct 30.9 L MCV 79 L MCH 25.3 L MCHC 31.9 L RDW 17.3 H Plt Count 215 Seg Neutrophils % 85.9 H Lymphocytes % 10.6 L Monocytes % 3.2 Eosinophils % 0.2 Basophils % 0.1 Absolute Neutrophils 11.1 H Absolute Lymphocytes 1.4 Absolute Monocytes 0.4 Absolute Eosinophils 0.0 Absolute Basophils 0.0 Carbonic Acid 1.68 H HCO3/H2CO3 Ratio 17:1 ABG pH 7.33 L ABG pCO2 55.9 H ABG pO2 83.5 ABG HCO3 28.7 H ABG O2 Saturation 95.4 ABG Base Excess 1.8 FiO2 40% Sodium 143.6 Potassium 3.4 L Chloride 109 H Carbon Dioxide 23 Anion Gap 12 BUN 24 H Creatinine 0.90 Est GFR ( Amer) > 60 Est GFR (Non-Af Amer) > 60 Glucose 113 H Calcium 7.5 L Magnesium 11/08/17 16:35 WBC RBC Hgb Hct MCV MCH MCHC RDW Plt Count Seg Neutrophils % Lymphocytes % Monocytes % Eosinophils % Basophils % Absolute Neutrophils Absolute Lymphocytes Absolute Monocytes Absolute Eosinophils Absolute Basophils Carbonic Acid HCO3/H2CO3 Ratio ABG pH ABG pCO2 ABG pO2 ABG HCO3 ABG O2 Saturation ABG Base Excess FiO2 Sodium 142.8 Potassium 4.1 Chloride 104 Carbon Dioxide 26 Anion Gap 13 BUN 26 H Creatinine 1.01 Est GFR ( Amer) > 60 Est GFR (Non-Af Amer) 54 L Glucose 127 H Calcium 8.8 Magnesium 1.7 10/30/17 10/30/17 10/30/17 19:56 19:56 19:56 Creatine Kinase 75 CK-MB (CK-2) 2.28 Troponin I 0.447 NT-Pro-B Natriuret Pep 55627 H 10/31/17 10/31/17 10/31/17 01:42 01:42 07:16 Creatine Kinase 55 46 CK-MB (CK-2) 2.30 Troponin I 0.430 NT-Pro-B Natriuret Pep 10/31/17 11/01/17 07:16 05:01 Creatine Kinase CK-MB (CK-2) 2.18 Troponin I 0.399 0.340 NT-Pro-B Natriuret Pep Impressions: PICC Line Insertion 10/31/17 00:00 IMPRESSION: SUCCESSFUL PLACEMENT OF A 5 FR DUAL LUMEN 46 CM PICC IN THE RIGHT BASILIC VEIN. Guidance Fluoroscopy 11/01/17 00:00 IMPRESSION: SUCCESSFUL PLACEMENT OF A 5 FR DUAL LUMEN 46 CM PICC IN THE RIGHT BASILIC VEIN. Interventional Vascular Procedure 11/01/17 00:00 IMPRESSION: SUCCESSFUL PLACEMENT OF A 5 FR DUAL LUMEN 46 CM PICC IN THE RIGHT BASILIC VEIN. Chest X-Ray 11/08/17 08:00 IMPRESSION: Edema or sepsis. No significant change. 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
[2017-11-08] MEDS: ATORVASTATIN CALCIUM 10 MG TABLET NG SCH (21:25)
[2017-11-08] MEDS: NYSTATIN TOPICAL POWDER 15 GM TP SCH (21:27)
--- NOTE | 2017-11-09 00:18 | EKG REPORT ---
SEVERITY:- ABNORMAL ECG - SINUS RHYTHM PROBABLE INFERIOR INFARCT, AGE INDETERMINATE CONSIDER ANTERIOR INFARCT : Confirmed by: Gretchen Duncan MD 09-Nov-2017 00:17:31
[2017-11-09] MEDS: PROPOFOL 1,000 MG/100 ML INFUS..BTL IV PRN ×2 (00:34→03:34)
[2017-11-09] MEDS: IPRATROPIUM/ALBUTEROL 0.5-2.5 MG/3 ML AMPUL NEB SCH ×5 (01:33→20:23)
[2017-11-09] MEDS: GABAPENTIN 400 MG CAPSULE PO SCH ×2 (05:02→18:13)
[2017-11-09] MEDS: LEVOTHYROXINE SODIUM 0.075 MG TABLET NG SCH (05:02)
[2017-11-09] MEDS: PIPERACILLIN SODIUM/TAZOBACTAM 3.375 GM in NORMAL SALINE 100 ML IV SCH ×3 (05:03→18:13)
--- NOTE | 2017-11-09 07:45 | PROGRESS NOTE E ---
Progress Note NAME: SERINA LEE : 1945 AGE: 71Y DATE: 11/08/2017 ROOM: 603 SUBJECTIVE: The patient is a 71-year-old female, admitted with acute respiratory failure requiring invasive mechanical ventilation, probable pneumonia, pulmonary edema/congestive heart failure and severe sepsis. The patient's blood pressure has been stable overnight and the IV sedation was discontinued since around 5 o'clock this morning. The patient tolerated well and appeared to be waking up, but not complete until around 5:30 a.m. At 12 noon, the patient was reevaluated and the respiratory trial was attempted, but patient was only breathing about 2 times per hour and not getting enough inspiratory volume, less than 150 mL. The patient was placed back on ventilator therapy with a respiratory rate of 18. Respiratory trial was done again tonight at 5:30, but the patient failed respiratory trial because of some EKG changes during the trial Saturation remained above 95% and no vomiting noted. No diarrhea. The patient is having ileus and a NG-tube was placed in intermittent fashion, draining bile. OBJECTIVE: GENERAL: The patient appeared awake, afebrile, not in apparent respiratory distress. VITAL SIGNS: Temperature 98.8, T-max 99 degrees Fahrenheit, pulse rate 63, respiratory rate 16-18, and O2 saturation 95% on 40% FiO2 with tidal volume of 450, pressure support of 10 and PEEP 5 with rate of 18. EYES: No jaundice or pallor. EARS, NOSE, THROAT: No ear drainage or nasal discharge. CHEST/LUNGS: No wheezing. No rhonchi, no coarse crackles. CARDIOVASCULAR: S1, S2 distant. No murmur. ABDOMEN: Flabby. Positive bowel sounds, soft, nondistended, and nontender. EXTREMITIES: No joint swelling. Erythema and leg swelling involving the left lower leg. Wound positive for MRSA. ASSESSMENT: 1. ACUTE RESPIRATORY FAILURE REQUIRING INVASIVE MECHANICAL VENTILATION. The patient failed on extubation and placed back on the same therapy setting. 2. PULMONARY EDEMA/CONGESTIVE HEART FAILURE. Stable. 3. PNEUMONIA RIGHT LUNG. Appears to be improving. 4. SLIGHTLY ELEVATED CARDIAC ENZYMES. [employer] was consulted. Serial cardiac enzymes ordered. PLAN: 1. We continue to reduce sedation medication every morning, attempt to do supervised breathing trial every morning. 2. Agree and recommend cardiology evaluation and followup. 3. Continue current intravenous antibiotics; Levaquin 250, Zosyn and vancomycin IV. 4. The patient may need to transfer to a higher tertiary care center and the patient may need tracheostomy tube placed. May require longer time to be weaned off the ventilator and the patient needs aggressive cardiology evaluation and followup. DICTATING PHYSICIAN: ADRIAN GROVES MD,YELENA,MPH [id number] PHY#: [id number] ID: [id number] JOB#: [id number] ACCT: [id number] cc: > MTDD
[2017-11-09] MEDS: ENOXAPARIN SODIUM INJ 40 MG/0.4 ML DISP.SYRIN SUBCUT SCH (09:16)
[2017-11-09] MEDS: SERTRALINE HCL 50 MG TABLET NG SCH (09:16)
[2017-11-09] MEDS: VANCOMYCIN HCL 1,500 MG in DEXTROSE 5%-WATER 250 ML IV SCH (09:16)
[2017-11-09] MEDS: FUROSEMIDE INJ/PF 40 MG/4 ML SDV IV SCH (09:17)
[2017-11-09] MEDS: METHYLPREDNISOLONE INJ 40 MG/1 ML SDV IV SCH ×2 (09:17→21:46)
[2017-11-09] MEDS: NORMAL SALINE 10 ML SDV (SCHEDULED) IV SCH ×3 (09:18→21:48)
[2017-11-09] MEDS: CLONAZEPAM 1 MG TABLET NG SCH (09:19)
[2017-11-09 12:42] LABS: ARTERIAL BLOOD BASE EXCESS -0.7 mmol/L; ARTERIAL BLOOD FIO2 40%; ARTERIAL BLOOD HCO3 25.7 mmol/L (20-26); ARTERIAL BLOOD O2 SATURATION 97.1 % (94-98); ARTERIAL BLOOD PCO2 49.9 mmHg (35-45); ARTERIAL BLOOD PH 7.33 (7.35-7.45); ARTERIAL BLOOD PO2 100.2 mmHg (80-100); ARTERIAL BLOOD TOTAL CO2 27.3 mmol/L (21-25)
--- NOTE | 2017-11-09 16:48 | RADIOLOGY REPORT (SQ) ---
EXAM DESCRIPTION: CHEST SINGLE VIEW COMPLETED DATE/TIME: 11/09/2017 4:38 pm REASON FOR STUDY: pneumonia COMPARISON: 11/08/2017 EXAM PARAMETERS: NUMBER OF VIEWS: One view. TECHNIQUE: Single frontal radiographic view of the chest acquired. RADIATION DOSE: NA LIMITATIONS: None. FINDINGS: LUNGS AND PLEURA: Interval decrease in the volume of bilateral pleural effusions. Right m id lung atelectasis versus consolidation. No pneumothorax. MEDIASTINUM AND HILAR STRUCTURES: No masses. Contour normal. HEART AND VASCULAR STRUCTURES: Stable cardiomegaly. Stable central vasculature. BONES: No acute findings. HARDWARE: Right upper extremity PICC and endotracheal tube appear stable in position. The terminus o f the enteric tube is not visualized due to underpenetration. OTHER: No other significant finding. IMPRESSION: Slightly improved radiographic examination demonstrating decreased volume of bilateral p leural effusions. Bibasilar atelectasis versus consolidation. TECHNICAL DOCUMENTATION: JOB ID: [id number] [employer]- All Rights Reserved Reading location - IP/workstation name: [email or web address]
--- NOTE | 2017-11-09 20:17 | PDOC PROGRESS REPORT ---
Subjective Progress Note for:: 11/09/17 Subjective:: Patient was seen by the bedside, she is off sedation, presently of tube feeds, on weaning trials, Reason For Visit: ACUTE RESPIRATORY FAILURE WITH HYPERCAPNIA, Physical Exam Vital Signs: Temp Pulse Resp BP Pulse Ox 99.5 F 85 11 L 141/65 H 96 11/09/17 19:15 11/09/17 19:38 11/09/17 19:15 11/09/17 19:11 11/09/17 19:15 Intake & Output 11/08/17 11/09/17 11/10/17 06:59 06:59 06:59 Intake Total 3727 7429 1609 Output Total 3300 3940 0975 Balance 427 1079 -1126 Weight 186.4 kg 171 kg General appearance: PRESENT: morbidly obese Eye exam: PRESENT: PERRLA Respiratory exam: PRESENT: wheezes Cardiovascular exam: PRESENT: +S1, +S2 GI/Abdominal exam: PRESENT: soft Neurological exam: PRESENT: alert Results Laboratory Results: 11/08/17 06:12 11/08/17 16:35 11/09/17 11/09/17 05:15 12:10 Carbonic Acid 1.50 H HCO3/H2CO3 Ratio 17:1 ABG pH 7.33 L ABG pCO2 49.9 H ABG pO2 100.2 H ABG HCO3 25.7 ABG O2 Saturation 97.1 ABG Base Excess -0.7 FiO2 40% Triglycerides 178 H 10/30/17 10/30/17 10/30/17 19:56 19:56 19:56 Creatine Kinase 75 CK-MB (CK-2) 2.28 Troponin I 0.447 NT-Pro-B Natriuret Pep 09649 H 10/31/17 10/31/17 10/31/17 01:42 01:42 07:16 Creatine Kinase 55 46 CK-MB (CK-2) 2.30 Troponin I 0.430 NT-Pro-B Natriuret Pep 10/31/17 11/01/17 07:16 05:01 Creatine Kinase CK-MB (CK-2) 2.18 Troponin I 0.399 0.340 NT-Pro-B Natriuret Pep Impressions: PICC Line Insertion 10/31/17 00:00 IMPRESSION: SUCCESSFUL PLACEMENT OF A 5 FR DUAL LUMEN 46 CM PICC IN THE RIGHT BASILIC VEIN. Guidance Fluoroscopy 11/01/17 00:00 IMPRESSION: SUCCESSFUL PLACEMENT OF A 5 FR DUAL LUMEN 46 CM PICC IN THE RIGHT BASILIC VEIN. Interventional Vascular Procedure 11/01/17 00:00 IMPRESSION: SUCCESSFUL PLACEMENT OF A 5 FR DUAL LUMEN 46 CM PICC IN THE RIGHT BASILIC VEIN. Chest X-Ray 11/09/17 00:00 IMPRESSION: Slightly improved radiographic examination demonstrating decreased volume of bilateral pleural effusions. Bibasilar atelectasis versus consolidation. Assessment & Plan - Diagnosis (1) Acute respiratory failure with hypoxia and hypercapnia Is this a current diagnosis for this admission?: Yes Plan: Patient is presently on SIMV 2, pressure support, PEEP, if she continues on this present ventilator mode without distress she could be extubated tomorrow (2) Acute diastolic (congestive) heart failure Is this a current diagnosis for this admission?: Yes (3) Morbid obesity with BMI of 70 and over, adult Is this a current diagnosis for this admission?: Yes (4) Obesity hypoventilation syndrome Is this a current diagnosis for this admission?: Yes (5) Elevated troponin Is this a current diagnosis for this admission?: Yes (6) Chronic venous hypertension (idiopathic) with ulcer and inflammation of bilateral lower extremity Is this a current diagnosis for this admission?: Yes (7) Right middle lobe pneumonia Qualifiers: Pneumonia type: due to unspecified organism Qualified Code(s): J18.1 - Lobar pneumonia, unspecified organism Is this a current diagnosis for this admission?: Yes (8) MRSA pneumonia Qualifiers: Laterality: unspecified laterality Lung location: unspecified part of lung Qualified Code(s): J15.212 - Pneumonia due to Methicillin resistant Staphylococcus aureus Is this a current diagnosis for this admission?: Yes Plan: Continue IV vancomycin (9) E. coli UTI Is this a current diagnosis for this admission?: Yes Plan: Continue IV antibiotic - Time Time Spent with patient: 35 or more minutes
[2017-11-09] MEDS: ATORVASTATIN CALCIUM 10 MG TABLET NG SCH (21:46)
[2017-11-09] MEDS ORDERED: VANCOMYCIN HCL 1,000 MG in DEXTROSE 5%-WATER 250 ML IV SCH (22:00)
[2017-11-10] MEDS: IPRATROPIUM/ALBUTEROL 0.5-2.5 MG/3 ML AMPUL NEB SCH ×4 (01:22→20:05)
[2017-11-10] MEDS: PIPERACILLIN SODIUM/TAZOBACTAM 3.375 GM in NORMAL SALINE 100 ML IV SCH ×3 (02:05→17:01)
[2017-11-10] MEDS: NORMAL SALINE 1000 ML 1,000 ML IV PRN ×2 (03:12→16:47)
[2017-11-10 06:20] LABS: ABSOLUTE BASOPHILS # (AUTO) 0.1 10^3/uL (0.0-0.2); ABSOLUTE EOSINOPHILS # (AUTO) 0.1 10^3/uL (0.0-0.6); ABSOLUTE LYMPHOCYTES (AUTO) 2.3 10^3/uL (0.5-4.7); ABSOLUTE MONOCYTES (AUTO) 0.9 10^3/uL (0.1-1.4); ABSOLUTE NEUT (AUTO) 9.3 10^3/uL (1.7-8.2); BASOPHILS % (AUTO) 0.4 % (0-2); HEMATOCRIT 34.3 % (36.0-47.0); HEMOGLOBIN 10.8 g/dL (12.0-15.5); LYMPHOCYTES % (AUTO) 17.9 % (13-45); MEAN CORPUSCULAR HEMOGLOBIN 25.2 pg (27.0-33.4); MEAN CORPUSCULAR HGB CONC 31.5 g/dL (32.0-36.0); MEAN CORPUSCULAR VOLUME 80 fl (80-97); PLATELET COUNT 291 10^3/uL (150-450); RED CELL DISTRIBUTION WIDTH 16.6 % (11.5-14.0); SEGMENTED NEUTROPHILS % (AUTO) 73.7 % (42-78); TOTAL CELLS COUNTED % (AUTO) 100 %; WHITE BLOOD COUNT 12.6 10^3/uL (4.0-10.5)
[2017-11-10] MEDS: GABAPENTIN 400 MG CAPSULE PO SCH (06:33)
[2017-11-10] MEDS: LEVOTHYROXINE SODIUM 0.075 MG TABLET NG SCH (06:33)
[2017-11-10 06:43] LABS: ALANINE AMINOTRANSFERASE 62 U/L (9-52); ALBUMIN 3.3 g/dL (3.5-5.0); ALKALINE PHOSPHATASE 66 U/L (38-126); ANION GAP 12 (5-19); ASPARTATE AMINO TRANSFERASE 49 U/L (14-36); BILIRUBIN,DIRECT 0.4 mg/dL (0.0-0.4); BILIRUBIN,TOTAL 0.4 mg/dL (0.2-1.3); BLOOD UREA NITROGEN 23 mg/dL (7-20); CARBON DIOXIDE 32 mmol/L (22-30); CHLORIDE 105 mmol/L (98-107); GLUCOSE 103 mg/dL (75-110); POTASSIUM 3.6 mmol/L (3.6-5.0); SODIUM 149.2 mmol/L (137-145); TOTAL PROTEIN 6.7 g/dL (6.3-8.2)
--- NOTE | 2017-11-10 08:28 | RADIOLOGY REPORT (SQ) ---
EXAM DESCRIPTION: CHEST SINGLE VIEW COMPLETED DATE/TIME: 11/10/2017 6:13 am REASON FOR STUDY: pneumonia COMPARISON: 11/09/2017. EXAM PARAMETERS: NUMBER OF VIEWS: One view. TECHNIQUE: Single frontal radiographic view of the chest acquired. RADIATION DOSE: NA LIMITATIONS: None. FINDINGS: LUNGS AND PLEURA: Scattered densities in the lung bases, right greater than left. No larg e pleural effusion. No pneumothorax. MEDIASTINUM AND HILAR STRUCTURES: No masses. Contour normal. HEART AND VASCULAR STRUCTURES: Heart normal in size. Normal vasculature. BONES: No acute findings. HARDWARE: Stable endotracheal tube, nasogastric tube, and PICC line. OTHER: No other significant finding. IMPRESSION: NO CHANGE IN APPEARANCE OF THE CHEST. TECHNICAL DOCUMENTATION: JOB ID: [id number] [employer]- All Rights Reserved Reading location - IP/workstation name: [email or web address]
[2017-11-10] MEDS: SERTRALINE HCL 50 MG TABLET NG SCH (09:27)
[2017-11-10] MEDS: METHYLPREDNISOLONE INJ 40 MG/1 ML SDV IV SCH ×2 (09:30→21:13)
[2017-11-10] MEDS: NORMAL SALINE 10 ML SDV (SCHEDULED) IV SCH ×2 (09:32→21:15)
[2017-11-10] MEDS: FUROSEMIDE INJ/PF 40 MG/4 ML SDV IV SCH (09:34)
[2017-11-10] MEDS: ENOXAPARIN SODIUM INJ 40 MG/0.4 ML DISP.SYRIN SUBCUT SCH (09:43)
[2017-11-10 10:36] LABS: ARTERIAL BLOOD BASE EXCESS 5.6 mmol/L; ARTERIAL BLOOD FIO2 40%; ARTERIAL BLOOD H2CO3 1.73 mmol/L (1.05-1.35); ARTERIAL BLOOD HCO3 32.3 mmol/L (20-26); ARTERIAL BLOOD O2 SATURATION 96.7 % (94-98); ARTERIAL BLOOD PCO2 57.4 mmHg (35-45); ARTERIAL BLOOD PH 7.37 (7.35-7.45); ARTERIAL BLOOD TOTAL CO2 34.1 mmol/L (21-25)
--- NOTE | 2017-11-10 11:31 | PDOC CONSULTATION ---
History of Present Illness Admission Date/PCP: 10/30/17 19:20 AYALA FARIAS MD Patient complains of: acute/chronic resp failure History of Present Illness: SERINA LEE is a 71 year old female Past Medical History Cardiac Medical History: Reports: Congestive Heart Failure, Hyperlipidema, Hypertension, Peripheral Vascular Disease Denies: DVT, Myocardial Infarction, Pulmonary Embolism Pulmonary Medical History: Reports: Sleep Apnea Denies: Asthma, Chronic Obstructive Pulmonary Disease (COPD) Neurological Medical History: Denies: Seizures Endocrine Medical History: Reports: Diabetes Mellitus Type 2 Denies: Diabetes Mellitus Type 1, Hyperthyroidism, Hypothyroidism GI Medical History: Reports: Gastroesophageal Reflux Disease - Distant history of same; no recent symptoms. Denies: Cirrhosis, Hepatitis Musculoskeltal Medical History: Reports: Arthritis Psychiatric Medical History: Reports: Depression - Denies suicidal or homicidal ideation. 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 Denies: Clostridium Difficile Past Surgical History Past Surgical History: Reports: Orthopedic Surgery, Other - Wound debridement Social History Information Source: [facility] Records Smoking Status: Never Smoker Frequency of Alcohol Use: None Hx Recreational Drug Use: No Drugs: None Hx Prescription Drug Abuse: No Have you been exposed to any sick contacts recently?: No Have you had any recent respiratory illnesses?: No Have you travelled outside of [place] in the past 12 months?: No Family History Family History: CAD, Malignancy Parental Family History Reviewed: No Children Family History Reviewed: No Sibling(s) Family History Reviewed.: No Medication/Allergy Home Medications: Atorvastatin Calcium [Lipitor 10 mg Tablet] 10 mg PO QHS 10/31/17 Ergocalciferol (Vitamin D2) [Drisdol 50,000 unit (1.25MG) Capsule] 50,000 unit PO SEGURA@1000 10/31/17 Gabapentin [Neurontin 400 mg Capsule] 800 mg PO BID 10/31/17 Glimepiride [Amaryl] 2 mg PO QAM 10/31/17 Levothyroxine Sodium [Synthroid 0.075 mg Tablet] 0.075 mg PO Q6AM 10/31/17 Lisinopril/Hydrochlorothiazide [Zestoretic 20-25 mg Tablet] 1 tab PO DAILY 10/31 Sertraline HCl [Zoloft] 100 mg PO DAILY 10/31/17 Allergies/Adverse Reactions: adhesive [Adhesive] Allergy (Verified 01/19/17 13:11) No Known Drug Allergies Allergy (Verified 01/19/17 13:11) Review of Systems ROS unobtainable: Due to endotracheal tube Physical Exam Vital Signs: Temp Pulse Resp BP Pulse Ox 99.5 F 77 13 157/74 H 100 11/10/17 10:41 11/10/17 10:00 11/10/17 10:41 11/10/17 10:41 11/10/17 10:41 Intake & Output 11/09/17 11/10/17 11/11/17 06:59 06:59 06:59 Intake Total 4829 3817 100 Output Total 3750 5195 165 Balance 1079 -1378 -65 Weight 171 kg 175.1 kg General appearance: PRESENT: no acute distress, cooperative, disheveled, morbidly obese Head exam: PRESENT: atraumatic, normocephalic Eye exam: PRESENT: conjunctiva pale, EOMI. ABSENT: nystagmus, periorbital swelling, scleral icterus Mouth exam: PRESENT: dry mucosa, neck supple, tongue midline, other - ET tube Respiratory exam: PRESENT: decreased breath sounds, prolonged expiratory phas, rales, rhonchi, unlabored, wheezes. ABSENT: retraction, stridor, tachypnea Cardiovascular exam: PRESENT: RRR, +S1, +S2 Pulses: PRESENT: normal radial pulses GI/Abdominal exam: PRESENT: diminished [place] - [id number], soft Extremities exam: PRESENT: joint swelling, +1 edema. ABSENT: calf tenderness, clubbing Musculoskeletal exam: ABSENT: deformity, dislocation Neurological exam: PRESENT: awake Skin exam: PRESENT: dry, warm - [id number] Results Laboratory Results: 11/10/17 06:10 11/10/17 06:10 11/09/17 11/10/17 11/10/17 12:10 06:10 06:10 WBC 12.6 H RBC 4.30 Hgb 10.8 L Hct 34.3 L MCV 80 MCH 25.2 L MCHC 31.5 L RDW 16.6 H Plt Count 291 Seg Neutrophils % 73.7 Lymphocytes % 17.9 Monocytes % 7.0 Eosinophils % 1.0 Basophils % 0.4 Absolute Neutrophils 9.3 H Absolute Lymphocytes 2.3 Absolute Monocytes 0.9 Absolute Eosinophils 0.1 Absolute Basophils 0.1 Carbonic Acid 1.50 H HCO3/H2CO3 Ratio 17:1 ABG pH 7.33 L ABG pCO2 49.9 H ABG pO2 100.2 H ABG HCO3 25.7 ABG O2 Saturation 97.1 ABG Base Excess -0.7 FiO2 40% Sodium 149.2 H Potassium 3.6 Chloride 105 Carbon Dioxide 32 H Anion Gap 12 BUN 23 H Creatinine 0.92 Est GFR ( Amer) > 60 Est GFR (Non-Af Amer) > 60 Glucose 103 Calcium 9.0 Total Bilirubin 0.4 AST 49 H ALT 62 H Alkaline Phosphatase 66 Total Protein 6.7 Albumin 3.3 L 11/10/17 11/10/17 11/10/17 08:25 08:50 10:05 WBC RBC Hgb Hct MCV MCH MCHC RDW Plt Count Seg Neutrophils % Lymphocytes % Monocytes % Eosinophils % Basophils % Absolute Neutrophils Absolute Lymphocytes Absolute Monocytes Absolute Eosinophils Absolute Basophils Carbonic Acid Cancelled Cancelled Cancelled HCO3/H2CO3 Ratio Cancelled Cancelled Cancelled ABG pH Cancelled Cancelled Cancelled ABG pCO2 Cancelled Cancelled Cancelled ABG pO2 Cancelled Cancelled Cancelled ABG HCO3 Cancelled Cancelled Cancelled ABG O2 Saturation Cancelled Cancelled Cancelled ABG Base Excess Cancelled Cancelled Cancelled FiO2 Cancelled Cancelled Cancelled Sodium Potassium Chloride Carbon Dioxide Anion Gap BUN Creatinine Est GFR ( Amer) Est GFR (Non-Af Amer) Glucose Calcium Total Bilirubin AST ALT Alkaline Phosphatase Total Protein Albumin 11/10/17 10:25 WBC RBC Hgb Hct MCV MCH MCHC RDW Plt Count Seg Neutrophils % Lymphocytes % Monocytes % Eosinophils % Basophils % Absolute Neutrophils Absolute Lymphocytes Absolute Monocytes Absolute Eosinophils Absolute Basophils Carbonic Acid 1.73 H HCO3/H2CO3 Ratio 18:1 ABG pH 7.37 ABG pCO2 57.4 H ABG pO2 93.0 ABG HCO3 32.3 H ABG O2 Saturation 96.7 ABG Base Excess 5.6 FiO2 40% Sodium Potassium Chloride Carbon Dioxide Anion Gap BUN Creatinine Est GFR ( Amer) Est GFR (Non-Af Amer) Glucose Calcium Total Bilirubin AST ALT Alkaline Phosphatase Total Protein Albumin 10/30/17 10/30/17 10/30/17 19:56 19:56 19:56 Creatine Kinase 75 CK-MB (CK-2) 2.28 Troponin I 0.447 NT-Pro-B Natriuret Pep 68614 H 10/31/17 10/31/17 10/31/17 01:42 01:42 07:16 Creatine Kinase 55 46 CK-MB (CK-2) 2.30 Troponin I 0.430 NT-Pro-B Natriuret Pep 10/31/17 11/01/17 07:16 05:01 Creatine Kinase CK-MB (CK-2) 2.18 Troponin I 0.399 0.340 NT-Pro-B Natriuret Pep Impressions: PICC Line Insertion 10/31/17 00:00 IMPRESSION: SUCCESSFUL PLACEMENT OF A 5 FR DUAL LUMEN 46 CM PICC IN THE RIGHT BASILIC VEIN. Guidance Fluoroscopy 11/01/17 00:00 IMPRESSION: SUCCESSFUL PLACEMENT OF A 5 FR DUAL LUMEN 46 CM PICC IN THE RIGHT BASILIC VEIN. Interventional Vascular Procedure 11/01/17 00:00 IMPRESSION: SUCCESSFUL PLACEMENT OF A 5 FR DUAL LUMEN 46 CM PICC IN THE RIGHT BASILIC VEIN. Chest X-Ray 11/10/17 07:00 IMPRESSION: NO CHANGE IN APPEARANCE OF THE CHEST. Assessment & Plan - Diagnosis (1) Acute respiratory failure with hypoxia and hypercapnia Is this a current diagnosis for this admission?: Yes Plan: Labs- All tests 24 hr 11/08/17 11/09/17 11/10/17 14:15 12:10 10:25 ABG pH 7.33 L 7.33 L 7.37 ABG pCO2 55.9 H 49.9 H 57.4 H ABG pO2 93.0 ABG O2 Saturation 96.7 FiO2 40% (2) Morbid obesity with BMI of 70 and over, adult Is this a current diagnosis for this admission?: Yes (3) Obesity hypoventilation syndrome Is this a current diagnosis for this admission?: Yes Plan: increased pCO2 (4) MRSA pneumonia Qualifiers: Laterality: unspecified laterality Lung location: unspecified part of lung Qualified Code(s): J15.212 - Pneumonia due to Methicillin resistant Staphylococcus aureus Is this a current diagnosis for this admission?: Yes Plan: 11/04/17 15:15 Gram Stain - Final Tracheal Aspirate Sputum Culture - Final Mrsa (Meth Resis Staph Aureus) Normal Nancy Absent 10/30/17 23:40 Urine Culture - Final Catheterized Urine Escherichia Coli 10/30/17 16:05 Blood Culture - Final Blood Staphylococcus Epidermidis 10/07/17 10:10 Gram Stain - Final Leg - Left Wound Culture - Final Providencia Stuartii Pseudomonas Aeruginosa Enterococcus Faecalis(Group D) No Anaerobic Organisms 09/09/17 10:00 Gram Stain - Final Leg - Left Wound Culture - Final Enterococcus Faecalis(Group D) Pseudomonas Aeruginosa Peptostreptococcus Species 08/12/17 10:30 Gram Stain - Final Leg - Left Wound Culture - Final Pseudomonas Aeruginosa Enterococcus Faecalis(Group D) Mrsa (Meth Resis Staph Aureus) No Anaerobic Organisms (5) Hypertension Qualifiers: Hypertension type: essential hypertension Qualified Code(s): I10 - Essential (primary) hypertension Is this a current diagnosis for this admission?: Yes - Time Total Critical Time (Minutes): 55
[2017-11-10] MEDS ORDERED: SUCRALFATE 1 GM TABLET NG SCH (12:00)
[2017-11-10] MEDS: PROPOFOL 1,000 MG/100 ML INFUS..BTL IV PRN ×3 (13:11→21:14)
[2017-11-10] MEDS: SUCRALFATE SUSP 1 GM/10 ML UDCUP NG SCH ×3 (13:13→23:34)
[2017-11-10] MEDS: VANCOMYCIN HCL 1,000 MG in DEXTROSE 5%-WATER 250 ML IV SCH (17:34)
--- NOTE | 2017-11-10 20:40 | PDOC PROGRESS REPORT ---
Subjective Progress Note for:: 11/10/17 Subjective:: No significant change from yesterday. Sedation is being gradually reduced in preparation for possible extubation later today or tomorrow. Patient however still on some sedation and currently still being intubated and receiving artificial ventilation. Patient remains intubated, sedated, patient however looks comfortable and in acute distress. Reason For Visit: ACUTE RESPIRATORY FAILURE WITH HYPERCAPNIA, Physical Exam Vital Signs: Temp Pulse Resp BP Pulse Ox 100.0 F 79 15 138/69 H 100 11/10/17 18:11 11/10/17 20:18 11/10/17 18:11 11/10/17 18:11 11/10/17 18:11 Intake & Output 11/09/17 11/10/17 11/11/17 06:59 06:59 06:59 Intake Total 4829 3917 2685 Output Total 3750 5195 2960 Balance 3669 -8976 -185 Weight 171 kg 175.1 kg Exam: GENERAL: well-nourished and in no acute distress. Patient is intubated and I am told that patient is not on any sedation for last 24 hours. Orientation cannot be checked as patient cannot speak because of endotracheal tube but she is noted to not to verbal commands HEAD: Atraumatic, normocephalic. EYES: Pupils equal round and reactive to light, extraocular movements could not be checked, sclera anicteric, conjunctiva are normal. ENT: TMs normal, nares patent, oropharynx clear without exudates. Moist mucous membranes. No oral ulcerations or bleeding gums noted NECK: supple without lymphadenopathy or JVD. Trachea is central. No cervical or axillary lymphadenopathy noted. Carotids are 2+ LUNGS: Breath sounds mostly clear to auscultation patient is noted to have bibasal crackles at the extreme bases CHEST: Palpation of the chest wall shows no significant chest wall tenderness or abnormalities. 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 ABDOMEN: Soft, no significant tenderness appreciated, normoactive bowel sounds. No guarding, no rebound. No rigidity noted . No masses appreciated. EXTREMITIES: Pedal pulses are 1-2+, no calf tenderness noted, 1+ pedal edema noted. No clubbing or cyanosis. NEUROLOGICAL: The patient cannot participate in the neurological exam but no facial asymmetry noted. PSYCH: This cannot be evaluated. Patient cannot participate. SKIN: No significant ecchymosis, rash, or signs of pruritus noted. MUSCULOSKELETAL EXAM: No significant joint swelling noted. Results Laboratory Results: 11/10/17 06:10 11/10/17 06:10 11/10/17 11/10/17 11/10/17 06:10 06:10 08:25 WBC 12.6 H RBC 4.30 Hgb 10.8 L Hct 34.3 L MCV 80 MCH 25.2 L MCHC 31.5 L RDW 16.6 H Plt Count 291 Seg Neutrophils % 73.7 Lymphocytes % 17.9 Monocytes % 7.0 Eosinophils % 1.0 Basophils % 0.4 Absolute Neutrophils 9.3 H Absolute Lymphocytes 2.3 Absolute Monocytes 0.9 Absolute Eosinophils 0.1 Absolute Basophils 0.1 Carbonic Acid Cancelled HCO3/H2CO3 Ratio Cancelled ABG pH Cancelled ABG pCO2 Cancelled ABG pO2 Cancelled ABG HCO3 Cancelled ABG O2 Saturation Cancelled ABG Base Excess Cancelled FiO2 Cancelled Sodium 149.2 H Potassium 3.6 Chloride 105 Carbon Dioxide 32 H Anion Gap 12 BUN 23 H Creatinine 0.92 Est GFR ( Amer) > 60 Est GFR (Non-Af Amer) > 60 Glucose 103 Calcium 9.0 Total Bilirubin 0.4 AST 49 H ALT 62 H Alkaline Phosphatase 66 Total Protein 6.7 Albumin 3.3 L 11/10/17 11/10/17 11/10/17 08:50 10:05 10:25 WBC RBC Hgb Hct MCV MCH MCHC RDW Plt Count Seg Neutrophils % Lymphocytes % Monocytes % Eosinophils % Basophils % Absolute Neutrophils Absolute Lymphocytes Absolute Monocytes Absolute Eosinophils Absolute Basophils Carbonic Acid Cancelled Cancelled 1.73 H HCO3/H2CO3 Ratio Cancelled Cancelled 18:1 ABG pH Cancelled Cancelled 7.37 ABG pCO2 Cancelled Cancelled 57.4 H ABG pO2 Cancelled Cancelled 93.0 ABG HCO3 Cancelled Cancelled 32.3 H ABG O2 Saturation Cancelled Cancelled 96.7 ABG Base Excess Cancelled Cancelled 5.6 FiO2 Cancelled Cancelled 40% Sodium Potassium Chloride Carbon Dioxide Anion Gap BUN Creatinine Est GFR ( Amer) Est GFR (Non-Af Amer) Glucose Calcium Total Bilirubin AST ALT Alkaline Phosphatase Total Protein Albumin 11/05/17 17:53 Blood Blood Culture - Final NO GROWTH IN 5 DAYS 11/05/17 17:25 Blood Blood Culture - Final NO GROWTH IN 5 DAYS 10/30/17 10/30/17 10/30/17 19:56 19:56 19:56 Creatine Kinase 75 CK-MB (CK-2) 2.28 Troponin I 0.447 NT-Pro-B Natriuret Pep 20940 H 10/31/17 10/31/17 10/31/17 01:42 01:42 07:16 Creatine Kinase 55 46 CK-MB (CK-2) 2.30 Troponin I 0.430 NT-Pro-B Natriuret Pep 10/31/17 11/01/17 07:16 05:01 Creatine Kinase CK-MB (CK-2) 2.18 Troponin I 0.399 0.340 NT-Pro-B Natriuret Pep EKG Comments: Shows sinus rhythm without any sustained tachycardia or bradycardia. Impressions: PICC Line Insertion 10/31/17 00:00 IMPRESSION: SUCCESSFUL PLACEMENT OF A 5 FR DUAL LUMEN 46 CM PICC IN THE RIGHT BASILIC VEIN. Guidance Fluoroscopy 11/01/17 00:00 IMPRESSION: SUCCESSFUL PLACEMENT OF A 5 FR DUAL LUMEN 46 CM PICC IN THE RIGHT BASILIC VEIN. Interventional Vascular Procedure 11/01/17 00:00 IMPRESSION: SUCCESSFUL PLACEMENT OF A 5 FR DUAL LUMEN 46 CM PICC IN THE RIGHT BASILIC VEIN. Chest X-Ray 11/10/17 07:00 IMPRESSION: NO CHANGE IN APPEARANCE OF THE CHEST. Assessment & Plan - Diagnosis (1) Acute respiratory failure with hypoxia and hypercapnia Is this a current diagnosis for this admission?: Yes (2) Elevated troponin I level Is this a current diagnosis for this admission?: Yes (3) Morbid obesity Is this a current diagnosis for this admission?: Yes (4) Diabetes mellitus type 2 in obese Is this a current diagnosis for this admission?: Yes (5) CHF (congestive heart failure) Qualifiers: Heart failure type: right-sided Is this a current diagnosis for this admission?: Yes (6) CKD (chronic kidney disease), stage III Is this a current diagnosis for this admission?: Yes - Notes Notes: Patient seen by supervisor net making Dr. Valdez. Patient not yet ready for extubation as she seems very debilitated and cannot generate adequate negative pressure. We will leave pulmonary and ventilator management to him. Acute respiratory failure with predominantly hypercarbia with some hypoxemia: Most likely related to severe obesity, obesity hypoventilation syndrome, aggravated by CHF and possibly underlying COPD. Recommend following pulmonary recommendations. Patient being well managed also by special procedures technologist. Extubation is in plans. So far there has been no cardiac deterioration. Will continue to follow. Elevated troponin I level: Exact etiology not clear but could be related to respiratory failure secondary to severe hypercapnia, and some hypoxemia. Morbid obesity: Patient will benefit from gradual weight loss and can be handled as an outpatient. Diabetes: Patient being well managed by special procedures technologist. CHF: [place] to be combination of right heart failure and diastolic dysfunction. Feel that this is acute on chronic. Continue diuretic therapy. Chronic kidney disease: Currently stable. - Time Time with patient: 15-25 minutes - CODE STATUS was discussed, patient remains full code. Surrogate decision-maker unchanged. Multiple medical problems were addressed. More than 50% of the time spent coordinating care, discussing management plans with involved caregivers. Management plans discussed with involved personnels. Medical decision making was of moderate to high complexity , patient's has multiple comorbidities. Medications reviewed and adjusted accordingly: Yes
--- NOTE | 2017-11-10 20:57 | PDOC PROGRESS REPORT ---
Subjective Progress Note for:: 11/10/17 Subjective:: Patient remained intubated on vent support Reason For Visit: ACUTE RESPIRATORY FAILURE WITH HYPERCAPNIA, Physical Exam Vital Signs: Temp Pulse Resp BP Pulse Ox 100.0 F 79 15 138/69 H 100 11/10/17 18:11 11/10/17 20:18 11/10/17 18:11 11/10/17 18:11 11/10/17 18:11 Intake & Output 11/09/17 11/10/17 11/11/17 06:59 06:59 06:59 Intake Total 4829 3917 2685 Output Total 3750 5195 2960 Balance 1637 -9756 -420 Weight 171 kg 175.1 kg Eye exam: PRESENT: PERRLA Respiratory exam: PRESENT: decreased breath sounds Cardiovascular exam: PRESENT: +S1, +S2 GI/Abdominal exam: PRESENT: soft Neurological exam: PRESENT: alert Results Laboratory Results: 11/10/17 06:10 11/10/17 06:10 11/10/17 11/10/17 11/10/17 06:10 06:10 08:25 WBC 12.6 H RBC 4.30 Hgb 10.8 L Hct 34.3 L MCV 80 MCH 25.2 L MCHC 31.5 L RDW 16.6 H Plt Count 291 Seg Neutrophils % 73.7 Lymphocytes % 17.9 Monocytes % 7.0 Eosinophils % 1.0 Basophils % 0.4 Absolute Neutrophils 9.3 H Absolute Lymphocytes 2.3 Absolute Monocytes 0.9 Absolute Eosinophils 0.1 Absolute Basophils 0.1 Carbonic Acid Cancelled HCO3/H2CO3 Ratio Cancelled ABG pH Cancelled ABG pCO2 Cancelled ABG pO2 Cancelled ABG HCO3 Cancelled ABG O2 Saturation Cancelled ABG Base Excess Cancelled FiO2 Cancelled Sodium 149.2 H Potassium 3.6 Chloride 105 Carbon Dioxide 32 H Anion Gap 12 BUN 23 H Creatinine 0.92 Est GFR ( Amer) > 60 Est GFR (Non-Af Amer) > 60 Glucose 103 Calcium 9.0 Total Bilirubin 0.4 AST 49 H ALT 62 H Alkaline Phosphatase 66 Total Protein 6.7 Albumin 3.3 L 11/10/17 11/10/17 11/10/17 08:50 10:05 10:25 WBC RBC Hgb Hct MCV MCH MCHC RDW Plt Count Seg Neutrophils % Lymphocytes % Monocytes % Eosinophils % Basophils % Absolute Neutrophils Absolute Lymphocytes Absolute Monocytes Absolute Eosinophils Absolute Basophils Carbonic Acid Cancelled Cancelled 1.73 H HCO3/H2CO3 Ratio Cancelled Cancelled 18:1 ABG pH Cancelled Cancelled 7.37 ABG pCO2 Cancelled Cancelled 57.4 H ABG pO2 Cancelled Cancelled 93.0 ABG HCO3 Cancelled Cancelled 32.3 H ABG O2 Saturation Cancelled Cancelled 96.7 ABG Base Excess Cancelled Cancelled 5.6 FiO2 Cancelled Cancelled 40% Sodium Potassium Chloride Carbon Dioxide Anion Gap BUN Creatinine Est GFR ( Amer) Est GFR (Non-Af Amer) Glucose Calcium Total Bilirubin AST ALT Alkaline Phosphatase Total Protein Albumin 11/05/17 17:53 Blood Blood Culture - Final NO GROWTH IN 5 DAYS 11/05/17 17:25 Blood Blood Culture - Final NO GROWTH IN 5 DAYS 10/30/17 10/30/17 10/30/17 19:56 19:56 19:56 Creatine Kinase 75 CK-MB (CK-2) 2.28 Troponin I 0.447 NT-Pro-B Natriuret Pep 20943 H 10/31/17 10/31/17 10/31/17 01:42 01:42 07:16 Creatine Kinase 55 46 CK-MB (CK-2) 2.30 Troponin I 0.430 NT-Pro-B Natriuret Pep 10/31/17 11/01/17 07:16 05:01 Creatine Kinase CK-MB (CK-2) 2.18 Troponin I 0.399 0.340 NT-Pro-B Natriuret Pep Impressions: PICC Line Insertion 10/31/17 00:00 IMPRESSION: SUCCESSFUL PLACEMENT OF A 5 FR DUAL LUMEN 46 CM PICC IN THE RIGHT BASILIC VEIN. Guidance Fluoroscopy 11/01/17 00:00 IMPRESSION: SUCCESSFUL PLACEMENT OF A 5 FR DUAL LUMEN 46 CM PICC IN THE RIGHT BASILIC VEIN. Interventional Vascular Procedure 11/01/17 00:00 IMPRESSION: SUCCESSFUL PLACEMENT OF A 5 FR DUAL LUMEN 46 CM PICC IN THE RIGHT BASILIC VEIN. Chest X-Ray 11/10/17 07:00 IMPRESSION: NO CHANGE IN APPEARANCE OF THE CHEST. 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
[2017-11-10] MEDS: GABAPENTIN 400 MG CAPSULE NG SCH (21:13)
[2017-11-10] MEDS: ATORVASTATIN CALCIUM 10 MG TABLET NG SCH (21:14)
[2017-11-10] MEDS: PANTOPRAZOLE SODIUM 40 MG VIAL IV SCH (21:14)
[2017-11-11] MEDS: PROPOFOL 1,000 MG/100 ML INFUS..BTL IV PRN ×7 (00:39→23:41)
[2017-11-11] MEDS: IPRATROPIUM/ALBUTEROL 0.5-2.5 MG/3 ML AMPUL NEB SCH ×4 (02:18→20:25)
[2017-11-11] MEDS: NORMAL SALINE 1000 ML 1,000 ML IV PRN (02:36)
[2017-11-11] MEDS: PIPERACILLIN SODIUM/TAZOBACTAM 3.375 GM in NORMAL SALINE 100 ML IV SCH ×3 (02:36→17:12)
[2017-11-11] MEDS: SUCRALFATE SUSP 1 GM/10 ML UDCUP NG SCH ×4 (05:06→23:36)
[2017-11-11] MEDS: VANCOMYCIN HCL 1,000 MG in DEXTROSE 5%-WATER 250 ML IV SCH ×2 (05:06→18:33)
[2017-11-11 05:39] LABS: ARTERIAL BLOOD BASE EXCESS 4.7 mmol/L; ARTERIAL BLOOD H2CO3 1.68 mmol/L (1.05-1.35); ARTERIAL BLOOD HCO3 31.2 mmol/L (20-26); ARTERIAL BLOOD O2 SATURATION 95.2 % (94-98); ARTERIAL BLOOD PCO2 55.9 mmHg (35-45); ARTERIAL BLOOD PH 7.37 (7.35-7.45); ARTERIAL BLOOD PO2 79.6 mmHg (80-100); ARTERIAL BLOOD TOTAL CO2 32.9 mmol/L (21-25)
[2017-11-11 05:40] LABS: ARTERIAL BLOOD FIO2 30%
[2017-11-11 05:41] LABS: ABSOLUTE BASOPHILS # (AUTO) 0.1 10^3/uL (0.0-0.2); ABSOLUTE EOSINOPHILS # (AUTO) 0.1 10^3/uL (0.0-0.6); ABSOLUTE LYMPHOCYTES (AUTO) 2.4 10^3/uL (0.5-4.7); ABSOLUTE MONOCYTES (AUTO) 0.8 10^3/uL (0.1-1.4); ABSOLUTE NEUT (AUTO) 7.1 10^3/uL (1.7-8.2); BASOPHILS % (AUTO) 0.6 % (0-2); EOSINOPHILS % (AUTO) 0.7 % (0-6); HEMATOCRIT 33.9 % (36.0-47.0); HEMOGLOBIN 10.7 g/dL (12.0-15.5); LYMPHOCYTES % (AUTO) 23.2 % (13-45); MEAN CORPUSCULAR HEMOGLOBIN 25.3 pg (27.0-33.4); MEAN CORPUSCULAR HGB CONC 31.5 g/dL (32.0-36.0); MEAN CORPUSCULAR VOLUME 80 fl (80-97); MONOCYTES % (AUTO) 7.7 % (3-13); PLATELET COUNT 265 10^3/uL (150-450); RED BLOOD COUNT 4.23 10^6/uL (3.72-5.28); RED CELL DISTRIBUTION WIDTH 17.2 % (11.5-14.0); SEGMENTED NEUTROPHILS % (AUTO) 67.8 % (42-78); TOTAL CELLS COUNTED % (AUTO) 100 %; WHITE BLOOD COUNT 10.5 10^3/uL (4.0-10.5)
[2017-11-11 05:58] LABS: ALANINE AMINOTRANSFERASE 64 U/L (9-52); ALBUMIN 3.5 g/dL (3.5-5.0); ALKALINE PHOSPHATASE 64 U/L (38-126); ANION GAP 14 (5-19); ASPARTATE AMINO TRANSFERASE 38 U/L (14-36); BILIRUBIN,DIRECT 0.5 mg/dL (0.0-0.4); BILIRUBIN,TOTAL 0.5 mg/dL (0.2-1.3); BLOOD UREA NITROGEN 24 mg/dL (7-20); CALCIUM 8.8 mg/dL (8.4-10.2); CARBON DIOXIDE 31 mmol/L (22-30); CHLORIDE 103 mmol/L (98-107); GLUCOSE 105 mg/dL (75-110); POTASSIUM 3.4 mmol/L (3.6-5.0); SODIUM 148.3 mmol/L (137-145); TOTAL PROTEIN 6.5 g/dL (6.3-8.2)
--- NOTE | 2017-11-11 08:09 | RADIOLOGY REPORT (SQ) ---
EXAM DESCRIPTION: CHEST SINGLE VIEW COMPLETED DATE/TIME: 11/11/2017 6:14 am REASON FOR STUDY: pneumonia COMPARISON: 11/10/2017 EXAM PARAMETERS: NUMBER OF VIEWS: One view TECHNIQUE: Single frontal radiograph of the chest. RADIATION DOSE: N/A LIMITATIONS: None. FINDINGS: TEMPORARY SUPPORT DEVICES:ETT in expected location. NG tube courses below the carmen-diaphr agm in to the stomach. PICC catheter from right peripheral approach is in expected location. LUNGS AND PLEURA: Basilar opacities. Small left effusion. No masses. No pneumothorax. MEDIASTINUM AND HILAR STRUCTURES: No masses. Contour normal. HEART AND VASCULAR STRUCTURES: Heart is enlarged. Vascular congestion. Aorta normal for age. BONES: No acute findings. OTHER: No other significant finding. IMPRESSION: Basilar opacities and vascular congestion. Stable. SUPPORT DEVICE(S) IN EXPECTED LOCATIONS. TECHNICAL DOCUMENTATION: JOB ID: [id number] [employer]- All Rights Reserved Reading location - IP/workstation name: [email or web address]
[2017-11-11] MEDS: LEVOTHYROXINE SODIUM 0.075 MG TABLET NG SCH (08:31)
[2017-11-11] MEDS: METHYLPREDNISOLONE INJ 40 MG/1 ML SDV IV SCH ×2 (09:01→21:22)
[2017-11-11] MEDS: SERTRALINE HCL 50 MG TABLET NG SCH (09:01)
[2017-11-11] MEDS: FUROSEMIDE INJ/PF 40 MG/4 ML SDV IV SCH (09:02)
[2017-11-11] MEDS: PANTOPRAZOLE SODIUM 40 MG VIAL IV SCH ×2 (09:02→21:22)
[2017-11-11] MEDS: ENOXAPARIN SODIUM INJ 40 MG/0.4 ML DISP.SYRIN SUBCUT SCH (09:03)
[2017-11-11] MEDS: NORMAL SALINE 10 ML SDV (SCHEDULED) IV SCH ×2 (09:03→21:23)
[2017-11-11] MEDS: MAGNESIUM SULFATE/D5W 1 GM/100 ML RTUPB IV SCH ×3 (10:39→12:46)
[2017-11-11] MEDS: 1/2 NORMAL SALINE 1,000 ML IV PRN ×2 (10:42→19:38)
[2017-11-11] MEDS: POTASSI CL 20 MEQ/50 ML RIDER 20 MEQ/50 ML RTUPB IV SCH ×2 (10:42→11:36)
--- NOTE | 2017-11-11 10:42 | RADIOLOGY REPORT (SQ) ---
EXAM DESCRIPTION: CHEST SINGLE VIEW COMPLETED DATE/TIME: 11/11/2017 10:33 am REASON FOR STUDY: tube exchanged/ new tube placement COMPARISON: 11/11/2017 0558 hours EXAM PARAMETERS: NUMBER OF VIEWS: One view TECHNIQUE: Single frontal radiograph of the chest. RADIATION DOSE: N/A LIMITATIONS: None. FINDINGS: TEMPORARY SUPPORT DEVICES:ETT in expected location. NG tube courses below the carmen-diaphr agm in to the stomach. PICC catheter from right peripheral approach is in expected location. LUNGS AND PLEURA: Stable opacities. Left effusion. No masses. No pneumothorax. MEDIASTINUM AND HILAR STRUCTURES: No masses. Contour normal. HEART AND VASCULAR STRUCTURES: Heart is enlarged. Vascular congestion. Aorta normal for age. BONES: No acute findings. OTHER: No other significant finding. IMPRESSION: Stable appearance. SUPPORT DEVICE(S) IN EXPECTED LOCATIONS. TECHNICAL DOCUMENTATION: JOB ID: [id number] [employer]- All Rights Reserved Reading location - IP/workstation name: [email or web address]
--- NOTE | 2017-11-11 10:53 | PDOC PROGRESS REPORT ---
Subjective Progress Note for:: 11/11/17 Subjective:: Intubated Reason For Visit: ACUTE RESPIRATORY FAILURE WITH HYPERCAPNIA, Physical Exam Vital Signs: Temp Pulse Resp BP Pulse Ox 99.9 F 69 20 158/80 H 95 11/11/17 08:12 11/11/17 09:08 11/11/17 08:12 11/11/17 08:12 11/11/17 08:12 Intake & Output 11/10/17 11/11/17 11/12/17 06:59 06:59 06:59 Intake Total 3917 5906 Output Total 5195 3325 350 Balance -1278 2581 -350 Weight 175.1 kg 180.6 kg General appearance: PRESENT: no acute distress, disheveled, morbidly obese Head exam: PRESENT: atraumatic, normocephalic Eye exam: PRESENT: conjunctiva pale. ABSENT: nystagmus, periorbital swelling, scleral icterus Mouth exam: PRESENT: dry mucosa, neck supple, tongue midline, other Neck exam: ABSENT: carotid bruit, JVD, lymphadenopathy, thyromegaly, tracheal deviation, tracheostomy Respiratory exam: PRESENT: decreased breath sounds, prolonged expiratory phas, rales, rhonchi, unlabored, wheezes. ABSENT: retraction, stridor Cardiovascular exam: PRESENT: RRR, +S1, +S2, tachycardia Pulses: PRESENT: normal radial pulses GI/Abdominal exam: PRESENT: hypoactive bowel sounds, soft Extremities exam: ABSENT: clubbing, joint swelling, pedal edema Musculoskeletal exam: ABSENT: deformity, dislocation Neurological exam: PRESENT: awake Skin exam: PRESENT: dry, warm Results Laboratory Results: 11/11/17 05:30 11/11/17 05:30 11/10/17 11/10/17 11/10/17 08:50 10:05 10:25 WBC RBC Hgb Hct MCV MCH MCHC RDW Plt Count Seg Neutrophils % Lymphocytes % Monocytes % Eosinophils % Basophils % Absolute Neutrophils Absolute Lymphocytes Absolute Monocytes Absolute Eosinophils Absolute Basophils Carbonic Acid Cancelled Cancelled 1.73 H HCO3/H2CO3 Ratio Cancelled Cancelled 18:1 ABG pH Cancelled Cancelled 7.37 ABG pCO2 Cancelled Cancelled 57.4 H ABG pO2 Cancelled Cancelled 93.0 ABG HCO3 Cancelled Cancelled 32.3 H ABG O2 Saturation Cancelled Cancelled 96.7 ABG Base Excess Cancelled Cancelled 5.6 FiO2 Cancelled Cancelled 40% Sodium Potassium Chloride Carbon Dioxide Anion Gap BUN Creatinine Est GFR ( Amer) Est GFR (Non-Af Amer) Glucose Calcium Magnesium Total Bilirubin AST ALT Alkaline Phosphatase Total Protein Albumin 11/11/17 11/11/17 11/11/17 05:30 05:30 05:30 WBC 10.5 RBC 4.23 Hgb 10.7 L Hct 33.9 L MCV 80 MCH 25.3 L MCHC 31.5 L RDW 17.2 H Plt Count 265 Seg Neutrophils % 67.8 Lymphocytes % 23.2 Monocytes % 7.7 Eosinophils % 0.7 Basophils % 0.6 Absolute Neutrophils 7.1 Absolute Lymphocytes 2.4 Absolute Monocytes 0.8 Absolute Eosinophils 0.1 Absolute Basophils 0.1 Carbonic Acid 1.68 H HCO3/H2CO3 Ratio 18:1 ABG pH 7.37 ABG pCO2 55.9 H ABG pO2 79.6 L ABG HCO3 31.2 H ABG O2 Saturation 95.2 ABG Base Excess 4.7 FiO2 30% Sodium 148.3 H Potassium 3.4 L Chloride 103 Carbon Dioxide 31 H Anion Gap 14 BUN 24 H Creatinine 0.81 Est GFR ( Amer) > 60 Est GFR (Non-Af Amer) > 60 Glucose 105 Calcium 8.8 Magnesium 1.5 L Total Bilirubin 0.5 AST 38 H ALT 64 H Alkaline Phosphatase 64 Total Protein 6.5 Albumin 3.5 11/05/17 17:53 Blood Blood Culture - Final NO GROWTH IN 5 DAYS 11/05/17 17:25 Blood Blood Culture - Final NO GROWTH IN 5 DAYS 10/30/17 10/30/17 10/30/17 19:56 19:56 19:56 Creatine Kinase 75 CK-MB (CK-2) 2.28 Troponin I 0.447 NT-Pro-B Natriuret Pep 22485 H 10/31/17 10/31/17 10/31/17 01:42 01:42 07:16 Creatine Kinase 55 46 CK-MB (CK-2) 2.30 Troponin I 0.430 NT-Pro-B Natriuret Pep 10/31/17 11/01/17 07:16 05:01 Creatine Kinase CK-MB (CK-2) 2.18 Troponin I 0.399 0.340 NT-Pro-B Natriuret Pep Impressions: PICC Line Insertion 10/31/17 00:00 IMPRESSION: SUCCESSFUL PLACEMENT OF A 5 FR DUAL LUMEN 46 CM PICC IN THE RIGHT BASILIC VEIN. Guidance Fluoroscopy 11/01/17 00:00 IMPRESSION: SUCCESSFUL PLACEMENT OF A 5 FR DUAL LUMEN 46 CM PICC IN THE RIGHT BASILIC VEIN. Interventional Vascular Procedure 11/01/17 00:00 IMPRESSION: SUCCESSFUL PLACEMENT OF A 5 FR DUAL LUMEN 46 CM PICC IN THE RIGHT BASILIC VEIN. Chest X-Ray 11/11/17 07:00 IMPRESSION: Basilar opacities and vascular congestion. Stable. SUPPORT DEVICE(S) IN EXPECTED LOCATIONS. Assessment & Plan - Diagnosis (1) Acute respiratory failure with hypoxia and hypercapnia Is this a current diagnosis for this admission?: Yes Plan: Labs- All tests 24 hr 11/08/17 11/09/17 11/10/17 14:15 12:10 10:25 ABG pH 7.33 L 7.33 L 7.37 ABG pCO2 55.9 H 49.9 H 57.4 H ABG pO2 93.0 ABG O2 Saturation 96.7 FiO2 40% (2) Morbid obesity with BMI of 70 and over, adult Is this a current diagnosis for this admission?: Yes (3) Obesity hypoventilation syndrome Is this a current diagnosis for this admission?: Yes Plan: increased pCO2 (4) MRSA pneumonia Qualifiers: Laterality: unspecified laterality Lung location: unspecified part of lung Qualified Code(s): J15.212 - Pneumonia due to Methicillin resistant Staphylococcus aureus Is this a current diagnosis for this admission?: Yes Plan: 11/04/17 15:15 Gram Stain - Final Tracheal Aspirate Sputum Culture - Final Mrsa (Meth Resis Staph Aureus) Normal Nancy Absent 10/30/17 23:40 Urine Culture - Final Catheterized Urine Escherichia Coli 10/30/17 16:05 Blood Culture - Final Blood Staphylococcus Epidermidis 10/07/17 10:10 Gram Stain - Final Leg - Left Wound Culture - Final Providencia Stuartii Pseudomonas Aeruginosa Enterococcus Faecalis(Group D) No Anaerobic Organisms 09/09/17 10:00 Gram Stain - Final Leg - Left Wound Culture - Final Enterococcus Faecalis(Group D) Pseudomonas Aeruginosa Peptostreptococcus Species 08/12/17 10:30 Gram Stain - Final Leg - Left Wound Culture - Final Pseudomonas Aeruginosa Enterococcus Faecalis(Group D) Mrsa (Meth Resis Staph Aureus) No Anaerobic Organisms (5) Hypertension Qualifiers: Hypertension type: essential hypertension Qualified Code(s): I10 - Essential (primary) hypertension Is this a current diagnosis for this admission?: Yes - Time Total Critical Time (Minutes): 40
--- NOTE | 2017-11-11 12:56 | PDOC PROGRESS REPORT ---
Subjective Progress Note for:: 11/08/17 Subjective:: No significant change from yesterday. Sedation is being gradually reduced in preparation for possible extubation later today or tomorrow. Patient however still on some sedation and currently still being intubated and receiving artificial ventilation. Patient remains intubated, sedated, patient however looks comfortable and in acute distress. Reason For Visit: ACUTE RESPIRATORY FAILURE WITH HYPERCAPNIA, Physical Exam Vital Signs: Temp Pulse Resp BP Pulse Ox 99.0 F 84 16 104/64 95 11/08/17 19:01 11/08/17 17:59 11/08/17 19:01 11/08/17 19:01 11/08/17 19:01 Intake & Output 11/07/17 11/08/17 11/09/17 06:59 06:59 06:59 Intake Total 4268 3727 1455 Output Total 5425 3300 2680 Balance -1157 427 -1225 Weight 185.5 kg 186.4 kg Exam: GENERAL: well-nourished and in no acute distress. Patient is intubated and sedated. Orientation cannot be checked HEAD: Atraumatic, normocephalic. EYES: Pupils equal round and reactive to light, extraocular movements could not be checked, sclera anicteric, conjunctiva are normal. ENT: TMs normal, nares patent, oropharynx clear without exudates. Moist mucous membranes. No oral ulcerations or bleeding gums noted NECK: supple without lymphadenopathy or JVD. Trachea is central. No cervical or axillary lymphadenopathy noted. Carotids are 2+ LUNGS: Breath sounds mostly clear to auscultation patient is noted to have bibasal crackles at the extreme bases CHEST: Palpation of the chest wall shows no significant chest wall tenderness or abnormalities. 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 ABDOMEN: Soft, no significant tenderness appreciated, normoactive bowel sounds. No guarding, no rebound. No rigidity noted . No masses appreciated. EXTREMITIES: Pedal pulses are 1-2+, no calf tenderness noted, 1+ pedal edema noted. No clubbing or cyanosis. NEUROLOGICAL: The patient cannot participate in the neurological exam but no facial asymmetry noted. Extremities slightly hypotonic PSYCH: This cannot be evaluated. Patient cannot participate. SKIN: No significant ecchymosis, rash, or signs of pruritus noted. MUSCULOSKELETAL EXAM: No significant joint swelling noted. Patient cannot participate in musculoskeletal exam Results Laboratory Results: 11/08/17 06:12 11/08/17 16:35 11/08/17 11/08/17 11/08/17 06:12 06:12 14:15 WBC 12.9 H RBC 3.89 Hgb 9.8 L Hct 30.9 L MCV 79 L MCH 25.3 L MCHC 31.9 L RDW 17.3 H Plt Count 215 Seg Neutrophils % 85.9 H Lymphocytes % 10.6 L Monocytes % 3.2 Eosinophils % 0.2 Basophils % 0.1 Absolute Neutrophils 11.1 H Absolute Lymphocytes 1.4 Absolute Monocytes 0.4 Absolute Eosinophils 0.0 Absolute Basophils 0.0 Carbonic Acid 1.68 H HCO3/H2CO3 Ratio 17:1 ABG pH 7.33 L ABG pCO2 55.9 H ABG pO2 83.5 ABG HCO3 28.7 H ABG O2 Saturation 95.4 ABG Base Excess 1.8 FiO2 40% Sodium 143.6 Potassium 3.4 L Chloride 109 H Carbon Dioxide 23 Anion Gap 12 BUN 24 H Creatinine 0.90 Est GFR ( Amer) > 60 Est GFR (Non-Af Amer) > 60 Glucose 113 H Calcium 7.5 L Magnesium 11/08/17 16:35 WBC RBC Hgb Hct MCV MCH MCHC RDW Plt Count Seg Neutrophils % Lymphocytes % Monocytes % Eosinophils % Basophils % Absolute Neutrophils Absolute Lymphocytes Absolute Monocytes Absolute Eosinophils Absolute Basophils Carbonic Acid HCO3/H2CO3 Ratio ABG pH ABG pCO2 ABG pO2 ABG HCO3 ABG O2 Saturation ABG Base Excess FiO2 Sodium 142.8 Potassium 4.1 Chloride 104 Carbon Dioxide 26 Anion Gap 13 BUN 26 H Creatinine 1.01 Est GFR ( Amer) > 60 Est GFR (Non-Af Amer) 54 L Glucose 127 H Calcium 8.8 Magnesium 1.7 10/30/17 10/30/17 10/30/17 19:56 19:56 19:56 Creatine Kinase 75 CK-MB (CK-2) 2.28 Troponin I 0.447 NT-Pro-B Natriuret Pep 92735 H 10/31/17 10/31/17 10/31/17 01:42 01:42 07:16 Creatine Kinase 55 46 CK-MB (CK-2) 2.30 Troponin I 0.430 NT-Pro-B Natriuret Pep 10/31/17 11/01/17 07:16 05:01 Creatine Kinase CK-MB (CK-2) 2.18 Troponin I 0.399 0.340 NT-Pro-B Natriuret Pep Impressions: PICC Line Insertion 10/31/17 00:00 IMPRESSION: SUCCESSFUL PLACEMENT OF A 5 FR DUAL LUMEN 46 CM PICC IN THE RIGHT BASILIC VEIN. Guidance Fluoroscopy 11/01/17 00:00 IMPRESSION: SUCCESSFUL PLACEMENT OF A 5 FR DUAL LUMEN 46 CM PICC IN THE RIGHT BASILIC VEIN. Interventional Vascular Procedure 11/01/17 00:00 IMPRESSION: SUCCESSFUL PLACEMENT OF A 5 FR DUAL LUMEN 46 CM PICC IN THE RIGHT BASILIC VEIN. Chest X-Ray 11/08/17 08:00 IMPRESSION: Edema or sepsis. No significant change. Assessment & Plan - Diagnosis (1) Acute respiratory failure with hypoxia and hypercapnia Is this a current diagnosis for this admission?: Yes (2) Elevated troponin I level Is this a current diagnosis for this admission?: Yes (3) Morbid obesity Is this a current diagnosis for this admission?: Yes (4) Diabetes mellitus type 2 in obese Is this a current diagnosis for this admission?: Yes (5) CHF (congestive heart failure) Qualifiers: Heart failure type: right-sided Is this a current diagnosis for this admission?: Yes (6) CKD (chronic kidney disease), stage III Is this a current diagnosis for this admission?: Yes - Notes Notes: Patient remains critically ill but in stable cardiopulmonary status. Still remains on the ventilation. Patient is feeling weaning trials. Acute respiratory failure with predominantly hypercarbia with some hypoxemia: Most likely related to severe obesity, obesity hypoventilation syndrome, aggravated by CHF and possibly underlying COPD. Recommend following pulmonary recommendations. 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 Extubation is in plans, but patient failing weaning trials. So far there has been no cardiac deterioration. Will continue to follow. Elevated troponin I level: Exact etiology not clear but could be related to respiratory failure secondary to severe hypercapnia, and some hypoxemia. Morbid obesity: Patient will benefit from gradual weight loss and can be handled as an outpatient. Diabetes: Patient being well managed by sand operator. CHF: [place] to be combination of right heart failure and diastolic dysfunction. Feel that this is acute on chronic. Continue diuretic therapy. Chronic kidney disease: Currently stable. - Time Time with patient: 15-25 minutes - More than 50% of the time spent coordinating care, discussing management plans with involved caregivers. Management plans discussed with involved personnels. Medical decision making was of moderate to high complexity, patient's has multiple comorbidities.
[2017-11-11] MEDS: GABAPENTIN 400 MG CAPSULE NG SCH ×2 (13:15→21:22)
[2017-11-11] MEDS ORDERED: POTASSIUM CHLORIDE 20 MEQ/50 ML RTU IV ONE (13:30)
[2017-11-11] MEDS: ACETYLCYSTEINE 20% SOLN 800 MG/4 ML VIAL.NEB NEB SCH ×2 (14:12→20:25)
[2017-11-11 18:23] LABS: VANCOMYCIN,TROUGH 10.9 ug/mL (5.0-20.0)
--- NOTE | 2017-11-11 21:03 | PDOC PROGRESS REPORT ---
Subjective Progress Note for:: 11/11/17 Subjective:: Patient failed weaning trials, presently on full vent support Reason For Visit: ACUTE RESPIRATORY FAILURE WITH HYPERCAPNIA, Physical Exam Vital Signs: Temp Pulse Resp BP Pulse Ox 99.9 F 67 18 152/71 H 96 11/11/17 19:42 11/11/17 20:26 11/11/17 20:26 11/11/17 17:12 11/11/17 20:26 Intake & Output 11/10/17 11/11/17 11/12/17 06:59 06:59 06:59 Intake Total 3917 6156 3732 Output Total 5191 3328 2225 Balance -1278 2831 1507 Weight 175.1 kg 180.6 kg Eye exam: PRESENT: PERRLA Respiratory exam: PRESENT: decreased breath sounds Cardiovascular exam: PRESENT: +S1, +S2 Neurological exam: PRESENT: alert Results Laboratory Results: 11/11/17 05:30 11/11/17 05:30 11/11/17 11/11/17 11/11/17 05:30 05:30 05:30 WBC 10.5 RBC 4.23 Hgb 10.7 L Hct 33.9 L MCV 80 MCH 25.3 L MCHC 31.5 L RDW 17.2 H Plt Count 265 Seg Neutrophils % 67.8 Lymphocytes % 23.2 Monocytes % 7.7 Eosinophils % 0.7 Basophils % 0.6 Absolute Neutrophils 7.1 Absolute Lymphocytes 2.4 Absolute Monocytes 0.8 Absolute Eosinophils 0.1 Absolute Basophils 0.1 Carbonic Acid 1.68 H HCO3/H2CO3 Ratio 18:1 ABG pH 7.37 ABG pCO2 55.9 H ABG pO2 79.6 L ABG HCO3 31.2 H ABG O2 Saturation 95.2 ABG Base Excess 4.7 FiO2 30% Sodium 148.3 H Potassium 3.4 L Chloride 103 Carbon Dioxide 31 H Anion Gap 14 BUN 24 H Creatinine 0.81 Est GFR ( Amer) > 60 Est GFR (Non-Af Amer) > 60 Glucose 105 Calcium 8.8 Magnesium 1.5 L Total Bilirubin 0.5 AST 38 H ALT 64 H Alkaline Phosphatase 64 Total Protein 6.5 Albumin 3.5 11/05/17 17:53 Blood Blood Culture - Final NO GROWTH IN 5 DAYS 11/05/17 17:25 Blood Blood Culture - Final NO GROWTH IN 5 DAYS 10/30/17 10/30/17 10/30/17 19:56 19:56 19:56 Creatine Kinase 75 CK-MB (CK-2) 2.28 Troponin I 0.447 NT-Pro-B Natriuret Pep 27648 H 10/31/17 10/31/17 10/31/17 01:42 01:42 07:16 Creatine Kinase 55 46 CK-MB (CK-2) 2.30 Troponin I 0.430 NT-Pro-B Natriuret Pep 10/31/17 11/01/17 07:16 05:01 Creatine Kinase CK-MB (CK-2) 2.18 Troponin I 0.399 0.340 NT-Pro-B Natriuret Pep Impressions: PICC Line Insertion 10/31/17 00:00 IMPRESSION: SUCCESSFUL PLACEMENT OF A 5 FR DUAL LUMEN 46 CM PICC IN THE RIGHT BASILIC VEIN. Guidance Fluoroscopy 11/01/17 00:00 IMPRESSION: SUCCESSFUL PLACEMENT OF A 5 FR DUAL LUMEN 46 CM PICC IN THE RIGHT BASILIC VEIN. Interventional Vascular Procedure 11/01/17 00:00 IMPRESSION: SUCCESSFUL PLACEMENT OF A 5 FR DUAL LUMEN 46 CM PICC IN THE RIGHT BASILIC VEIN. Chest X-Ray 11/11/17 07:00 IMPRESSION: Basilar opacities and vascular congestion. Stable. SUPPORT DEVICE(S) IN EXPECTED LOCATIONS. Assessment & Plan - Diagnosis (1) Acute respiratory failure with hypoxia and hypercapnia Is this a current diagnosis for this admission?: Yes (2) Acute diastolic (congestive) heart failure Is this a current diagnosis for this admission?: Yes (3) Morbid obesity with BMI of 70 and over, adult Is this a current diagnosis for this admission?: Yes (4) Obesity hypoventilation syndrome Is this a current diagnosis for this admission?: Yes (5) Elevated troponin Is this a current diagnosis for this admission?: Yes (6) Chronic venous hypertension (idiopathic) with ulcer and inflammation of bilateral lower extremity Is this a current diagnosis for this admission?: Yes (7) Right middle lobe pneumonia Qualifiers: Pneumonia type: due to unspecified organism Qualified Code(s): J18.1 - Lobar pneumonia, unspecified organism Is this a current diagnosis for this admission?: Yes - Plan Summary Plan Summary: Continue vent support, IV antibiotic, tube feeds and other supportive care
[2017-11-11] MEDS: ATORVASTATIN CALCIUM 10 MG TABLET NG SCH (21:22)
[2017-11-12] MEDS: PIPERACILLIN SODIUM/TAZOBACTAM 3.375 GM in NORMAL SALINE 100 ML IV SCH ×2 (01:09→11:00)
[2017-11-12] MEDS: PROPOFOL 1,000 MG/100 ML INFUS..BTL IV PRN ×5 (01:09→17:36)
[2017-11-12] MEDS: IPRATROPIUM/ALBUTEROL 0.5-2.5 MG/3 ML AMPUL NEB SCH ×4 (02:08→19:47)
[2017-11-12] MEDS: VANCOMYCIN HCL 1,000 MG in DEXTROSE 5%-WATER 250 ML IV SCH ×3 (04:11→17:31)
[2017-11-12] MEDS: 1/2 NORMAL SALINE 1,000 ML IV PRN (05:52)
[2017-11-12] MEDS: SUCRALFATE SUSP 1 GM/10 ML UDCUP NG SCH ×4 (05:52→23:46)
[2017-11-12 06:27] LABS: ABSOLUTE BASOPHILS # (AUTO) 0.1 10^3/uL (0.0-0.2); ABSOLUTE EOSINOPHILS # (AUTO) 0.2 10^3/uL (0.0-0.6); ABSOLUTE LYMPHOCYTES (AUTO) 2.6 10^3/uL (0.5-4.7); ABSOLUTE MONOCYTES (AUTO) 0.6 10^3/uL (0.1-1.4); ABSOLUTE NEUT (AUTO) 7.2 10^3/uL (1.7-8.2); BASOPHILS % (AUTO) 0.5 % (0-2); EOSINOPHILS % (AUTO) 1.5 % (0-6); HEMATOCRIT 33.7 % (36.0-47.0); HEMOGLOBIN 10.8 g/dL (12.0-15.5); LYMPHOCYTES % (AUTO) 24.8 % (13-45); MEAN CORPUSCULAR HEMOGLOBIN 25.2 pg (27.0-33.4); MEAN CORPUSCULAR HGB CONC 32.1 g/dL (32.0-36.0); MEAN CORPUSCULAR VOLUME 79 fl (80-97); PLATELET COUNT 258 10^3/uL (150-450); RED BLOOD COUNT 4.28 10^6/uL (3.72-5.28); RED CELL DISTRIBUTION WIDTH 16.8 % (11.5-14.0); SEGMENTED NEUTROPHILS % (AUTO) 67.2 % (42-78); TOTAL CELLS COUNTED % (AUTO) 100 %; WHITE BLOOD COUNT 10.7 10^3/uL (4.0-10.5)
[2017-11-12 06:39] LABS: ALANINE AMINOTRANSFERASE 62 U/L (9-52); ALBUMIN 3.4 g/dL (3.5-5.0); ALKALINE PHOSPHATASE 61 U/L (38-126); ANION GAP 13 (5-19); ASPARTATE AMINO TRANSFERASE 37 U/L (14-36); BILIRUBIN,DIRECT 0.4 mg/dL (0.0-0.4); BILIRUBIN,TOTAL 0.4 mg/dL (0.2-1.3); BLOOD UREA NITROGEN 21 mg/dL (7-20); CALCIUM 8.9 mg/dL (8.4-10.2); CARBON DIOXIDE 31 mmol/L (22-30); CHLORIDE 99 mmol/L (98-107); GLUCOSE 129 mg/dL (75-110); POTASSIUM 3.5 mmol/L (3.6-5.0); SODIUM 142.6 mmol/L (137-145); TOTAL PROTEIN 6.7 g/dL (6.3-8.2); TRIGLYCERIDES 190 mg/dL (<150)
[2017-11-12 07:43] LABS: ARTERIAL BLOOD BASE EXCESS 6.3 mmol/L; ARTERIAL BLOOD FIO2 28%; ARTERIAL BLOOD H2CO3 1.32 mmol/L (1.05-1.35); ARTERIAL BLOOD HCO3 30.7 mmol/L (20-26); ARTERIAL BLOOD O2 SATURATION 95.9 % (94-98); ARTERIAL BLOOD PCO2 43.9 mmHg (35-45); ARTERIAL BLOOD PH 7.46 (7.35-7.45); ARTERIAL BLOOD PO2 76.7 mmHg (80-100); ARTERIAL BLOOD TOTAL CO2 32.1 mmol/L (21-25)
[2017-11-12] MEDS: ACETYLCYSTEINE 20% SOLN 800 MG/4 ML VIAL.NEB NEB SCH ×2 (07:46→19:47)
--- NOTE | 2017-11-12 08:20 | RADIOLOGY REPORT (SQ) ---
EXAM DESCRIPTION: CHEST SINGLE VIEW COMPLETED DATE/TIME: 11/12/2017 7:07 am REASON FOR STUDY: pneumonia COMPARISON: 11/11/2017. FINDINGS: Single-view chest AP portable supine at approximately 0700 hours. Left base is slightly clipped inferiorly. Appropriate endotracheal tube. Nasogastric tube down, tip difficult to see. Extremely low lung volumes. Volume loss and consolidation suspected in the left base, although this area is difficult to further evaluate. Subsegmental atelectasis in the right lower lobe. IMPRESSION: Limited study. Low volumes. Worsening aeration left base. Appropriate lines and tubes . TECHNICAL DOCUMENTATION: JOB ID: [id number] Reading location - IP/workstation name: [email or web address]
[2017-11-12] MEDS: METHYLPREDNISOLONE INJ 40 MG/1 ML SDV IV SCH ×2 (09:01→23:46)
[2017-11-12] MEDS: PANTOPRAZOLE SODIUM 40 MG VIAL IV SCH (09:02)
[2017-11-12] MEDS: FUROSEMIDE INJ/PF 40 MG/4 ML SDV IV SCH (09:07)
[2017-11-12] MEDS: NORMAL SALINE 10 ML SDV (SCHEDULED) IV SCH ×2 (09:13→23:49)
[2017-11-12] MEDS: SERTRALINE HCL 50 MG TABLET NG SCH (11:52)
[2017-11-12] MEDS: LEVOTHYROXINE SODIUM 0.075 MG TABLET NG SCH (11:53)
[2017-11-12] MEDS: POTASSIUM CHLORIDE 20 MEQ/50 ML RTU IV SCH ×2 (11:56→13:04)
[2017-11-12] MEDS: ENOXAPARIN SODIUM INJ 40 MG/0.4 ML DISP.SYRIN SUBCUT SCH (12:05)
[2017-11-12] MEDS: GABAPENTIN 400 MG CAPSULE NG SCH ×2 (12:05→23:46)
[2017-11-12 12:43] LABS: FLUID TYPE BRONCHIAL WASH
[2017-11-12 12:44] LABS: FLUID APPEARANCE CLOUDY; FLUID COLOR RED; FLUID SOURCE LUNG; FLUID VISCOSITY LIQUID
[2017-11-12] MEDS: MORPHINE SULFATE 10 MG/ML INJ IV PRN (15:28)
--- NOTE | 2017-11-12 15:46 | PDOC PROGRESS REPORT ---
Subjective Progress Note for:: 11/12/17 Subjective:: Patient patient requires mechanical ventilation, she had bronchoscopy done today Reason For Visit: ACUTE RESPIRATORY FAILURE WITH HYPERCAPNIA, Physical Exam Vital Signs: Temp Pulse Resp BP Pulse Ox 100.0 F 84 19 144/70 H 96 11/12/17 14:10 11/12/17 13:51 11/12/17 14:10 11/12/17 14:10 11/12/17 15:18 Intake & Output 11/11/17 11/12/17 11/13/17 06:59 06:59 06:59 Intake Total 6121 7837 123 Output Total 3327 4711 3490 Balance 2830 7065 -0495 Weight 180.6 kg 179 kg Eye exam: PRESENT: PERRLA Respiratory exam: PRESENT: decreased breath sounds Cardiovascular exam: PRESENT: +S1, +S2 Neurological exam: PRESENT: alert Results Laboratory Results: 11/12/17 06:20 11/12/17 06:20 11/12/17 11/12/17 11/12/17 06:20 06:20 06:37 WBC 10.7 H RBC 4.28 Hgb 10.8 L Hct 33.7 L MCV 79 L MCH 25.2 L MCHC 32.1 RDW 16.8 H Plt Count 258 Seg Neutrophils % 67.2 Lymphocytes % 24.8 Monocytes % 6.0 Eosinophils % 1.5 Basophils % 0.5 Absolute Neutrophils 7.2 Absolute Lymphocytes 2.6 Absolute Monocytes 0.6 Absolute Eosinophils 0.2 Absolute Basophils 0.1 Carbonic Acid Cancelled HCO3/H2CO3 Ratio Cancelled ABG pH Cancelled ABG pCO2 Cancelled ABG pO2 Cancelled ABG HCO3 Cancelled ABG O2 Saturation Cancelled ABG Base Excess Cancelled FiO2 Cancelled Sodium 142.6 Potassium 3.5 L Chloride 99 Carbon Dioxide 31 H Anion Gap 13 BUN 21 H Creatinine 0.75 Est GFR ( Amer) > 60 Est GFR (Non-Af Amer) > 60 Glucose 129 H Calcium 8.9 Magnesium 1.8 Total Bilirubin 0.4 AST 37 H ALT 62 H Alkaline Phosphatase 61 Total Protein 6.7 Albumin 3.4 L Triglycerides 190 H Fluid Type Fluid Source Fluid Color Fluid Appearance Fluid Viscosity Fluid WBC Fluid RBC 11/12/17 11/12/17 07:30 11:10 WBC RBC Hgb Hct MCV MCH MCHC RDW Plt Count Seg Neutrophils % Lymphocytes % Monocytes % Eosinophils % Basophils % Absolute Neutrophils Absolute Lymphocytes Absolute Monocytes Absolute Eosinophils Absolute Basophils Carbonic Acid 1.32 HCO3/H2CO3 Ratio 23:1 ABG pH 7.46 H ABG pCO2 43.9 ABG pO2 76.7 L ABG HCO3 30.7 H ABG O2 Saturation 95.9 ABG Base Excess 6.3 FiO2 28% Sodium Potassium Chloride Carbon Dioxide Anion Gap BUN Creatinine Est GFR ( Amer) Est GFR (Non-Af Amer) Glucose Calcium Magnesium Total Bilirubin AST ALT Alkaline Phosphatase Total Protein Albumin Triglycerides Fluid Type BRONCHIAL WASH Fluid Source LUNG Fluid Color RED Fluid Appearance CLOUDY Fluid Viscosity LIQUID Fluid WBC 633 Fluid RBC 37866 11/12/17 11:10 Bronchial Washings Nocardia Susceptibility - Final [employer]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 11/12/17 11:10 Bronchial Washings Nocardia Susceptibility - Final Not Reportable 11/12/17 11:10 Bronchial Washings Nocardia Susceptibility - Final Not Reportable 11/12/17 11:10 Bronchial Washings Nocardia Susceptibility - Final Not Reportable 11/12/17 11:10 Bronchial Washings Nocardia Susceptibility - Final Not Reportable 11/12/17 11:10 Bronchial Washings Nocardia Susceptibility - Final Not Reportable 11/12/17 11:10 Bronchial Washings Nocardia Susceptibility - Final Not Reportable 11/12/17 11:10 Bronchial Washings Nocardia Susceptibility - Final Not Reportable 11/12/17 11:10 Bronchial Washings Nocardia Susceptibility - Final Not Reportable 11/12/17 11:10 Bronchial Washings Microbiology Comment - Final Not Reportable 11/12/17 11:10 Bronchial Washings Fungal Smear - Final Not Reportable 11/12/17 11:10 Bronchial Washings Fungal Smear - Final Not Reportable 11/12/17 11:10 Bronchial Washings Fungal Smear - Final Not Reportable 11/12/17 11:10 Bronchial Washings Fungal Smear - Final Not Reportable 11/12/17 11:10 Bronchial Washings Fungal Smear - Final Not Reportable 11/12/17 11:10 Bronchial Washings Fungal Culture - Final Not Reportable 11/12/17 11:10 Bronchial Washings Fungal Culture - Final Not Reportable 11/12/17 11:10 Bronchial Washings Fungal Culture - Final Not Reportable 11/12/17 11:10 Bronchial Washings Susceptibility Special Request - Final Not Reportable 10/30/17 10/30/17 10/30/17 19:56 19:56 19:56 Creatine Kinase 75 CK-MB (CK-2) 2.28 Troponin I 0.447 NT-Pro-B Natriuret Pep 82247 H 10/31/17 10/31/17 10/31/17 01:42 01:42 07:16 Creatine Kinase 55 46 CK-MB (CK-2) 2.30 Troponin I 0.430 NT-Pro-B Natriuret Pep 10/31/17 11/01/17 07:16 05:01 Creatine Kinase CK-MB (CK-2) 2.18 Troponin I 0.399 0.340 NT-Pro-B Natriuret Pep Impressions: PICC Line Insertion 10/31/17 00:00 IMPRESSION: SUCCESSFUL PLACEMENT OF A 5 FR DUAL LUMEN 46 CM PICC IN THE RIGHT BASILIC VEIN. Guidance Fluoroscopy 11/01/17 00:00 IMPRESSION: SUCCESSFUL PLACEMENT OF A 5 FR DUAL LUMEN 46 CM PICC IN THE RIGHT BASILIC VEIN. Interventional Vascular Procedure 11/01/17 00:00 IMPRESSION: SUCCESSFUL PLACEMENT OF A 5 FR DUAL LUMEN 46 CM PICC IN THE RIGHT BASILIC VEIN. Chest X-Ray 11/12/17 07:00 IMPRESSION: Limited study. Low volumes. Worsening aeration left base. Appropriate lines and tubes. 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
--- NOTE | 2017-11-12 19:44 | PDOC PROGRESS REPORT ---
Subjective Progress Note for:: 11/11/17 Subjective:: No significant change from yesterday. Patient has been evaluated by brass buffer. We will plan on doing a bronchoscopy before the attempted extubation. Patient remains intubated, I am told on no sedation, patient however looks comfortable and in acute distress. Reason For Visit: ACUTE RESPIRATORY FAILURE WITH HYPERCAPNIA, Physical Exam Vital Signs: Temp Pulse Resp BP Pulse Ox 99.7 F 69 19 156/71 H 96 11/11/17 11:12 11/11/17 09:08 11/11/17 11:12 11/11/17 11:12 11/11/17 12:00 Intake & Output 11/10/17 11/11/17 11/12/17 06:59 06:59 06:59 Intake Total 3917 5906 218 Output Total 5195 3325 1150 Balance -1278 2581 -932 Weight 175.1 kg 180.6 kg Exam: GENERAL: well-nourished and in no acute distress. Patient is intubated and sedated. Orientation cannot be checked HEAD: Atraumatic, normocephalic. EYES: Pupils equal round and reactive to light, extraocular movements could not be checked, sclera anicteric, conjunctiva are normal. ENT: TMs normal, nares patent, oropharynx clear without exudates. Moist mucous membranes. No oral ulcerations or bleeding gums noted NECK: supple without lymphadenopathy or JVD. Trachea is central. No cervical or axillary lymphadenopathy noted. Carotids are 2+ LUNGS: Breath sounds mostly clear to auscultation patient is noted to have bibasal crackles at the extreme bases CHEST: Palpation of the chest wall shows no significant chest wall tenderness or abnormalities. HEART: [place] PREFITTER DOORS, No PSH, 2/6 ELLE aortic area, 1/6 vieyra systolic murmur mitral area , no rubs or gallops. ABDOMEN: Soft, no significant tenderness appreciated, normoactive bowel sounds. No guarding, no rebound. No rigidity noted . No masses appreciated. EXTREMITIES: Pedal pulses are 1-2+, no calf tenderness noted, 1+ pedal edema noted. No clubbing or cyanosis. NEUROLOGICAL: The patient cannot participate in the neurological exam but no facial asymmetry noted. Extremities slightly hypotonic PSYCH: This cannot be evaluated. Patient cannot participate. SKIN: No significant ecchymosis, rash, or signs of pruritus noted. MUSCULOSKELETAL EXAM: No significant joint swelling noted. Patient cannot participate in musculoskeletal exam Results Laboratory Results: 11/11/17 05:30 11/11/17 05:30 11/11/17 11/11/17 11/11/17 05:30 05:30 05:30 WBC 10.5 RBC 4.23 Hgb 10.7 L Hct 33.9 L MCV 80 MCH 25.3 L MCHC 31.5 L RDW 17.2 H Plt Count 265 Seg Neutrophils % 67.8 Lymphocytes % 23.2 Monocytes % 7.7 Eosinophils % 0.7 Basophils % 0.6 Absolute Neutrophils 7.1 Absolute Lymphocytes 2.4 Absolute Monocytes 0.8 Absolute Eosinophils 0.1 Absolute Basophils 0.1 Carbonic Acid 1.68 H HCO3/H2CO3 Ratio 18:1 ABG pH 7.37 ABG pCO2 55.9 H ABG pO2 79.6 L ABG HCO3 31.2 H ABG O2 Saturation 95.2 ABG Base Excess 4.7 FiO2 30% Sodium 148.3 H Potassium 3.4 L Chloride 103 Carbon Dioxide 31 H Anion Gap 14 BUN 24 H Creatinine 0.81 Est GFR ( Amer) > 60 Est GFR (Non-Af Amer) > 60 Glucose 105 Calcium 8.8 Magnesium 1.5 L Total Bilirubin 0.5 AST 38 H ALT 64 H Alkaline Phosphatase 64 Total Protein 6.5 Albumin 3.5 11/05/17 17:53 Blood Blood Culture - Final NO GROWTH IN 5 DAYS 11/05/17 17:25 Blood Blood Culture - Final NO GROWTH IN 5 DAYS 10/30/17 10/30/17 10/30/17 19:56 19:56 19:56 Creatine Kinase 75 CK-MB (CK-2) 2.28 Troponin I 0.447 NT-Pro-B Natriuret Pep 83775 H 10/31/17 10/31/17 10/31/17 01:42 01:42 07:16 Creatine Kinase 55 46 CK-MB (CK-2) 2.30 Troponin I 0.430 NT-Pro-B Natriuret Pep 10/31/17 11/01/17 07:16 05:01 Creatine Kinase CK-MB (CK-2) 2.18 Troponin I 0.399 0.340 NT-Pro-B Natriuret Pep EKG Comments: Telemetry shows patient maintaining sinus rhythm. Impressions: PICC Line Insertion 10/31/17 00:00 IMPRESSION: SUCCESSFUL PLACEMENT OF A 5 FR DUAL LUMEN 46 CM PICC IN THE RIGHT BASILIC VEIN. Guidance Fluoroscopy 11/01/17 00:00 IMPRESSION: SUCCESSFUL PLACEMENT OF A 5 FR DUAL LUMEN 46 CM PICC IN THE RIGHT BASILIC VEIN. Interventional Vascular Procedure 11/01/17 00:00 IMPRESSION: SUCCESSFUL PLACEMENT OF A 5 FR DUAL LUMEN 46 CM PICC IN THE RIGHT BASILIC VEIN. Chest X-Ray 11/11/17 07:00 IMPRESSION: Basilar opacities and vascular congestion. Stable. SUPPORT DEVICE(S) IN EXPECTED LOCATIONS. Assessment & Plan - Diagnosis (1) Acute respiratory failure with hypoxia and hypercapnia Is this a current diagnosis for this admission?: Yes (2) Elevated troponin I level Is this a current diagnosis for this admission?: Yes (3) Morbid obesity Is this a current diagnosis for this admission?: Yes (4) Diabetes mellitus type 2 in obese Is this a current diagnosis for this admission?: Yes (5) CHF (congestive heart failure) Qualifiers: Heart failure type: right-sided Is this a current diagnosis for this admission?: Yes (6) CKD (chronic kidney disease), stage III Is this a current diagnosis for this admission?: Yes - Notes Notes: Patient not yet ready for extubation as she seems very debilitated and cannot generate adequate negative pressure. Patient to be scheduled for bronchoscopy possibly on Tuesday and then decide on extubation. Cardiac roy she has been stable. Acute respiratory failure with predominantly hypercarbia with some hypoxemia: Most likely related to severe obesity, obesity hypoventilation syndrome, aggravated by CHF and possibly underlying COPD. Recommend following pulmonary recommendations. Patient being well managed also by stone mill operator. Extubation is in plans after bronchoscopy is completed. So far there has been no cardiac deterioration. Will continue to follow. Elevated troponin I level: Exact etiology not clear but could be related to respiratory failure secondary to severe hypercapnia, and some hypoxemia. Morbid obesity: Patient will benefit from gradual weight loss and can be handled as an outpatient. Diabetes: Patient being well managed by stone mill operator. CHF: [place] to be combination of right heart failure and diastolic dysfunction. Feel that this is acute on chronic. Continue diuretic therapy. Chronic kidney disease: Currently stable. - Time Time with patient: 15-25 minutes - CODE STATUS was discussed, patient remains full code. Surrogate decision-maker unchanged. Multiple medical problems were addressed. More than 50% of the time spent coordinating care, discussing management plans with involved caregivers. Management plans discussed with involved personnels. Medical decision making was of moderate to high complexity , patient's has multiple comorbidities. Medications reviewed and adjusted accordingly: Yes
--- NOTE | 2017-11-12 19:44 | PDOC PROGRESS REPORT ---
Subjective Progress Note for:: 11/12/17 Subjective:: No significant change from yesterday. Patient has been evaluated by last puller. Mathematics Technician plan on doing a bronchoscopy before the attempted extubation. Patient remains intubated, I am told on no sedation, patient however looks comfortable and in acute distress. Patient noted to be alert and is able to follow commands. She has failed multiple weaning trials recently. Reason For Visit: ACUTE RESPIRATORY FAILURE WITH HYPERCAPNIA, Physical Exam Vital Signs: Temp Pulse Resp BP Pulse Ox 99.7 F 84 18 151/76 H 100 11/12/17 18:15 11/12/17 13:51 11/12/17 18:15 11/12/17 17:56 11/12/17 18:15 Intake & Output 11/11/17 11/12/17 11/13/17 06:59 06:59 06:59 Intake Total 6156 7837 2239 Output Total 3325 3010 2995 Balance 2831 4827 -756 Weight 180.6 kg 179 kg Exam: GENERAL: well-nourished and in no acute distress. Patient is intubated. Orientation cannot be checked but seems with it. HEAD: Atraumatic, normocephalic. EYES: Pupils equal round and reactive to light, extraocular movements could not be checked, sclera anicteric, conjunctiva are normal. ENT: TMs normal, nares patent, oropharynx clear without exudates. Moist mucous membranes. No oral ulcerations or bleeding gums noted NECK: supple without lymphadenopathy or JVD. Trachea is central. No cervical or axillary lymphadenopathy noted. Carotids are 2+ LUNGS: Breath sounds mostly clear to auscultation patient is noted to have bibasal crackles at the extreme bases CHEST: Palpation of the chest wall shows no significant chest wall tenderness or abnormalities. HEART: [place] LACE STRIPPER, No PSH, 2/6 ELLE aortic area, 1/6 vieyra systolic murmur mitral area , no rubs or gallops. ABDOMEN: Soft, no significant tenderness appreciated, normoactive bowel sounds. No guarding, no rebound. No rigidity noted . No masses appreciated. EXTREMITIES: Pedal pulses are 1-2+, no calf tenderness noted, 1+ pedal edema noted. No clubbing or cyanosis. NEUROLOGICAL: The patient cannot participate in the neurological exam but no facial asymmetry noted. PSYCH: This cannot be evaluated. Currently intubated SKIN: No significant ecchymosis, rash, or signs of pruritus noted. MUSCULOSKELETAL EXAM: No significant joint swelling noted. Results Laboratory Results: 11/12/17 06:20 11/12/17 06:20 11/12/17 11/12/17 11/12/17 06:20 06:20 06:37 WBC 10.7 H RBC 4.28 Hgb 10.8 L Hct 33.7 L MCV 79 L MCH 25.2 L MCHC 32.1 RDW 16.8 H Plt Count 258 Seg Neutrophils % 67.2 Lymphocytes % 24.8 Monocytes % 6.0 Eosinophils % 1.5 Basophils % 0.5 Absolute Neutrophils 7.2 Absolute Lymphocytes 2.6 Absolute Monocytes 0.6 Absolute Eosinophils 0.2 Absolute Basophils 0.1 Carbonic Acid Cancelled HCO3/H2CO3 Ratio Cancelled ABG pH Cancelled ABG pCO2 Cancelled ABG pO2 Cancelled ABG HCO3 Cancelled ABG O2 Saturation Cancelled ABG Base Excess Cancelled FiO2 Cancelled Sodium 142.6 Potassium 3.5 L Chloride 99 Carbon Dioxide 31 H Anion Gap 13 BUN 21 H Creatinine 0.75 Est GFR ( Amer) > 60 Est GFR (Non-Af Amer) > 60 Glucose 129 H Calcium 8.9 Magnesium 1.8 Total Bilirubin 0.4 AST 37 H ALT 62 H Alkaline Phosphatase 61 Total Protein 6.7 Albumin 3.4 L Triglycerides 190 H Fluid Type Fluid Source Fluid Color Fluid Appearance Fluid Viscosity Fluid WBC Fluid RBC 11/12/17 11/12/17 07:30 11:10 WBC RBC Hgb Hct MCV MCH MCHC RDW Plt Count Seg Neutrophils % Lymphocytes % Monocytes % Eosinophils % Basophils % Absolute Neutrophils Absolute Lymphocytes Absolute Monocytes Absolute Eosinophils Absolute Basophils Carbonic Acid 1.32 HCO3/H2CO3 Ratio 23:1 ABG pH 7.46 H ABG pCO2 43.9 ABG pO2 76.7 L ABG HCO3 30.7 H ABG O2 Saturation 95.9 ABG Base Excess 6.3 FiO2 28% Sodium Potassium Chloride Carbon Dioxide Anion Gap BUN Creatinine Est GFR ( Amer) Est GFR (Non-Af Amer) Glucose Calcium Magnesium Total Bilirubin AST ALT Alkaline Phosphatase Total Protein Albumin Triglycerides Fluid Type BRONCHIAL WASH Fluid Source LUNG Fluid Color RED Fluid Appearance CLOUDY Fluid Viscosity LIQUID Fluid WBC 633 Fluid RBC [address] 11/12/17 11:10 Bronchial Washings Nocardia Susceptibility - Final LACE STRIPPER 11/12/17 11:10 Bronchial Washings Nocardia Susceptibility - Final Not Reportable 11/12/17 11:10 Bronchial Washings Nocardia Susceptibility - Final Not Reportable 11/12/17 11:10 Bronchial Washings Nocardia Susceptibility - Final Not Reportable 11/12/17 11:10 Bronchial Washings Nocardia Susceptibility - Final Not Reportable 11/12/17 11:10 Bronchial Washings Nocardia Susceptibility - Final Not Reportable 11/12/17 11:10 Bronchial Washings Nocardia Susceptibility - Final Not Reportable 11/12/17 11:10 Bronchial Washings Nocardia Susceptibility - Final Not Reportable 11/12/17 11:10 Bronchial Washings Nocardia Susceptibility - Final Not Reportable 11/12/17 11:10 Bronchial Washings Microbiology Comment - Final Not Reportable 11/12/17 11:10 Bronchial Washings Fungal Smear - Final Not Reportable 11/12/17 11:10 Bronchial Washings Fungal Smear - Final Not Reportable 11/12/17 11:10 Bronchial Washings Fungal Smear - Final Not Reportable 11/12/17 11:10 Bronchial Washings Fungal Smear - Final Not Reportable 11/12/17 11:10 Bronchial Wash[place] Fungal Smear - Final Not Reportable 11/12/17 11:10 Bronchial Wash[place] Fungal Culture - Final Not Reportable 11/12/17 11:10 Bronchial Wash[place] Fungal Culture - Final Not Reportable 11/12/17 11:10 Bronchial Wash[place] Fungal Culture - Final Not Reportable 11/12/17 11:10 Bronchial Washings Susceptibility Special Request - Final Not Reportable 10/30/17 10/30/17 10/30/17 19:56 19:56 19:56 Creatine Kinase 75 CK-MB (CK-2) 2.28 Troponin I 0.447 NT-Pro-B Natriuret Pep 52155 H 10/31/17 10/31/17 10/31/17 01:42 01:42 07:16 Creatine Kinase 55 46 CK-MB (CK-2) 2.30 Troponin I 0.430 NT-Pro-B Natriuret Pep 10/31/17 11/01/17 07:16 05:01 Creatine Kinase CK-MB (CK-2) 2.18 Troponin I 0.399 0.340 NT-Pro-B Natriuret Pep EKG Comments: Telemetry shows patient maintaining sinus rhythm. Impressions: PICC Line Insertion 10/31/17 00:00 IMPRESSION: SUCCESSFUL PLACEMENT OF A 5 FR DUAL LUMEN 46 CM PICC IN THE RIGHT BASILIC VEIN. Guidance Fluoroscopy 11/01/17 00:00 IMPRESSION: SUCCESSFUL PLACEMENT OF A 5 FR DUAL LUMEN 46 CM PICC IN THE RIGHT BASILIC VEIN. Interventional Vascular Procedure 11/01/17 00:00 IMPRESSION: SUCCESSFUL PLACEMENT OF A 5 FR DUAL LUMEN 46 CM PICC IN THE RIGHT BASILIC VEIN. Chest X-Ray 11/12/17 07:00 IMPRESSION: Limited study. Low volumes. Worsening aeration left base. Appropriate lines and tubes. Assessment & Plan - Diagnosis (1) Acute respiratory failure with hypoxia and hypercapnia Is this a current diagnosis for this admission?: Yes (2) Elevated troponin I level Is this a current diagnosis for this admission?: Yes (3) Morbid obesity Is this a current diagnosis for this admission?: Yes (4) Diabetes mellitus type 2 in obese Is this a current diagnosis for this admission?: Yes (5) CHF (congestive heart failure) Qualifiers: Heart failure type: right-sided Is this a current diagnosis for this admission?: Yes (6) CKD (chronic kidney disease), stage III Is this a current diagnosis for this admission?: Yes - Notes Notes: Patient has been stable from cardiac standpoint. At this point will see patient on as needed basis. Please call if further help is needed. Patient seen by last puller Dr. Valdez. Patient not yet ready for extubation as she seems very debilitated and cannot generate adequate negative pressure. We will leave pulmonary and ventilator management to him. Acute respiratory failure with predominantly hypercarbia with some hypoxemia: Most likely related to severe obesity, obesity hypoventilation syndrome, aggravated by CHF and possibly underlying COPD. Recommend following pulmonary recommendations. Patient being well managed also by cartographic designer. Extubation is in plans. So far there has been no cardiac deterioration. Will continue to follow. Elevated troponin I level: Exact etiology not clear but could be related to respiratory failure secondary to severe hypercapnia, and some hypoxemia. Morbid obesity: Patient will benefit from gradual weight loss and can be handled as an outpatient. Diabetes: Patient being well managed by cartographic designer. CHF: [place] to be combination of right heart failure and diastolic dysfunction. Feel that this is acute on chronic. Continue diuretic therapy. Chronic kidney disease: Currently stable. - Time Time with patient: 15-25 minutes - CODE STATUS was discussed, patient remains full code. Surrogate decision-maker unchanged. Multiple medical problems were addressed. More than 50% of the time spent coordinating care, discussing management plans with involved caregivers. Management plans discussed with involved personnels. Medical decision making was of moderate to high complexity , patient's has multiple comorbidities.
[2017-11-12] MEDS: ATORVASTATIN CALCIUM 10 MG TABLET NG SCH (23:46)
[2017-11-13] MEDS: PROPOFOL 1,000 MG/100 ML INFUS..BTL IV PRN ×5 (01:33→20:25)
[2017-11-13] MEDS: VANCOMYCIN HCL 1,000 MG in DEXTROSE 5%-WATER 250 ML IV SCH ×3 (01:33→18:07)
[2017-11-13] MEDS: MORPHINE SULFATE 10 MG/ML INJ IV PRN ×2 (01:33→23:18)
[2017-11-13] MEDS: IPRATROPIUM/ALBUTEROL 0.5-2.5 MG/3 ML AMPUL NEB SCH ×4 (02:06→20:52)
[2017-11-13] MEDS: 1/2 NORMAL SALINE 1,000 ML IV PRN ×2 (04:25→14:37)
[2017-11-13] MEDS: SUCRALFATE SUSP 1 GM/10 ML UDCUP NG SCH ×3 (06:08→18:08)
[2017-11-13 06:56] LABS: ABSOLUTE BASOPHILS # (AUTO) 0.1 10^3/uL (0.0-0.2); ABSOLUTE EOSINOPHILS # (AUTO) 0.1 10^3/uL (0.0-0.6); ABSOLUTE LYMPHOCYTES (AUTO) 1.5 10^3/uL (0.5-4.7); ABSOLUTE MONOCYTES (AUTO) 0.3 10^3/uL (0.1-1.4); ABSOLUTE NEUT (AUTO) 9.3 10^3/uL (1.7-8.2); BASOPHILS % (AUTO) 0.9 % (0-2); HEMATOCRIT 31.2 % (36.0-47.0); HEMOGLOBIN 11.3 g/dL (12.0-15.5); LYMPHOCYTES % (AUTO) 13.1 % (13-45); MEAN CORPUSCULAR HEMOGLOBIN 28.6 pg (27.0-33.4); MEAN CORPUSCULAR HGB CONC 36.2 g/dL (32.0-36.0); MEAN CORPUSCULAR VOLUME 79 fl (80-97); MONOCYTES % (AUTO) 2.5 % (3-13); PLATELET COUNT 219 10^3/uL (150-450); RED BLOOD COUNT 3.95 10^6/uL (3.72-5.28); RED CELL DISTRIBUTION WIDTH 16.5 % (11.5-14.0); SEGMENTED NEUTROPHILS % (AUTO) 82.5 % (42-78); TOTAL CELLS COUNTED % (AUTO) 100 %; WHITE BLOOD COUNT 11.2 10^3/uL (4.0-10.5)
[2017-11-13 07:06] LABS: ARTERIAL BLOOD FIO2 35%; ARTERIAL BLOOD H2CO3 1.59 mmol/L (1.05-1.35); ARTERIAL BLOOD HCO3 30.3 mmol/L (20-26); ARTERIAL BLOOD O2 SATURATION 96.7 % (94-98); ARTERIAL BLOOD PCO2 52.8 mmHg (35-45); ARTERIAL BLOOD PH 7.38 (7.35-7.45); ARTERIAL BLOOD PO2 91.1 mmHg (80-100); ARTERIAL BLOOD TOTAL CO2 31.9 mmol/L (21-25)
[2017-11-13 07:27] LABS: ALANINE AMINOTRANSFERASE 63 U/L (9-52); ALBUMIN 3.1 g/dL (3.5-5.0); ALKALINE PHOSPHATASE 58 U/L (38-126); ANION GAP 16 (5-19); ASPARTATE AMINO TRANSFERASE 35 U/L (14-36); BLOOD UREA NITROGEN 17 mg/dL (7-20); CARBON DIOXIDE 25 mmol/L (22-30); CHLORIDE 91 mmol/L (98-107); GLUCOSE 145 mg/dL (75-110); POTASSIUM 3.3 mmol/L (3.6-5.0); SODIUM 131.6 mmol/L (137-145); TOTAL PROTEIN 6.1 g/dL (6.3-8.2)
[2017-11-13 07:33] LABS: BILIRUBIN,TOTAL < 0.1 mg/dL (0.2-1.3)
[2017-11-13] MEDS: ACETYLCYSTEINE 20% SOLN 800 MG/4 ML VIAL.NEB NEB SCH ×2 (08:28→20:52)
[2017-11-13] MEDS: LEVOTHYROXINE SODIUM 0.075 MG TABLET NG SCH (08:40)
--- NOTE | 2017-11-13 08:49 | RADIOLOGY REPORT (SQ) ---
EXAM DESCRIPTION: CHEST SINGLE VIEW COMPLETED DATE/TIME: 11/13/2017 8:25 am REASON FOR STUDY: pneumonia COMPARISON: 11/12/2017. FINDINGS: AP portable semi-upright approximately 0810 hours. Endotracheal and nasogastric tubes, right subclavian line look appropriate and stable. Limiting over lying monitor lead artifacts on the chest. Persistently diminished lung volumes generally. Bibasilar airspace disease and volume loss, as befor e. This looks similar. No pneumothorax. IMPRESSION: Stable chest. Stable appropriate support lines and tubes. TECHNICAL DOCUMENTATION: JOB ID: [id number] Reading location - IP/workstation name: [email or web address]
[2017-11-13] MEDS: ENOXAPARIN SODIUM INJ 40 MG/0.4 ML DISP.SYRIN SUBCUT SCH (10:00)
[2017-11-13] MEDS: METHYLPREDNISOLONE INJ 40 MG/1 ML SDV IV SCH ×2 (10:00→21:19)
[2017-11-13] MEDS: PANTOPRAZOLE SODIUM 40 MG VIAL IV SCH (10:00)
[2017-11-13] MEDS: FUROSEMIDE INJ/PF 40 MG/4 ML SDV IV SCH (10:00)
[2017-11-13] MEDS: ERGOCALCIFEROL (VITAMIN D2) 50000 UNIT (1.25 MG) CAPSULE PO SCH (10:01)
[2017-11-13] MEDS: GABAPENTIN 400 MG CAPSULE NG SCH ×2 (10:01→21:20)
[2017-11-13] MEDS: NORMAL SALINE 10 ML SDV (SCHEDULED) IV SCH ×2 (10:01→21:21)
[2017-11-13] MEDS: SERTRALINE HCL 50 MG TABLET NG SCH (10:01)
[2017-11-13] MEDS ORDERED: POTASSI CL 20 MEQ/50 ML RIDER 20 MEQ/50 ML RTUPB IV ONE (10:23)
[2017-11-13] MEDS ORDERED: MAGNESIUM SULFATE/D5W 1 GM/100 ML RTUPB IV ONE ×2 (10:23→12:00)
[2017-11-13] MEDS ORDERED: POTASSIUM CHLORIDE 20 MEQ/50 ML RTU IV ONE (12:30)
[2017-11-13] MEDS ORDERED: MAGNESIUM SULFATE/D5W 1 GM/100 ML RTUPB IV SCH (13:30)
--- NOTE | 2017-11-13 15:58 | PDOC PROGRESS REPORT ---
Subjective Progress Note for:: 11/13/17 Subjective:: Patient continues to require clinical ventilation Reason For Visit: ACUTE RESPIRATORY FAILURE WITH HYPERCAPNIA, Physical Exam Vital Signs: Temp Pulse Resp BP Pulse Ox 98.6 F 74 18 137/76 H 94 11/13/17 15:29 11/13/17 14:21 11/13/17 14:21 11/13/17 13:57 11/13/17 15:09 Intake & Output 11/12/17 11/13/17 11/14/17 06:59 06:59 06:59 Intake Total 7894 4332 1074 Output Total 4366 7211 3799 Balance 5261 -007 -9359 Weight 179 kg 171.1 kg Eye exam: PRESENT: PERRLA Respiratory exam: PRESENT: clear to auscultation kurt Cardiovascular exam: PRESENT: +S1, +S2 Results Laboratory Results: 11/13/17 06:35 11/13/17 06:35 11/13/17 11/13/17 11/13/17 06:35 06:35 06:35 WBC 11.2 H RBC 3.95 Hgb 11.3 L Hct 31.2 L MCV 79 L MCH 28.6 MCHC 36.2 H RDW 16.5 H Plt Count 219 Seg Neutrophils % 82.5 H Lymphocytes % 13.1 Monocytes % 2.5 L Eosinophils % 1.0 Basophils % 0.9 Absolute Neutrophils 9.3 H Absolute Lymphocytes 1.5 Absolute Monocytes 0.3 Absolute Eosinophils 0.1 Absolute Basophils 0.1 Carbonic Acid 1.59 H HCO3/H2CO3 Ratio 19:1 ABG pH 7.38 ABG pCO2 52.8 H ABG pO2 91.1 ABG HCO3 30.3 H ABG O2 Saturation 96.7 ABG Base Excess 4.0 FiO2 35% Sodium 131.6 L Potassium 3.3 L Chloride 91 L Carbon Dioxide 25 Anion Gap 16 BUN 17 Creatinine 0.67 Est GFR ( Amer) > 60 Est GFR (Non-Af Amer) > 60 Glucose 145 H Calcium 8.0 L Magnesium 1.5 L Total Bilirubin < 0.1 L AST 35 ALT 63 H Alkaline Phosphatase 58 Total Protein 6.1 L Albumin 3.1 L 10/30/17 10/30/17 10/30/17 19:56 19:56 19:56 Creatine Kinase 75 CK-MB (CK-2) 2.28 Troponin I 0.447 NT-Pro-B Natriuret Pep 34377 H 10/31/17 10/31/17 10/31/17 01:42 01:42 07:16 Creatine Kinase 55 46 CK-MB (CK-2) 2.30 Troponin I 0.430 NT-Pro-B Natriuret Pep 10/31/17 11/01/17 07:16 05:01 Creatine Kinase CK-MB (CK-2) 2.18 Troponin I 0.399 0.340 NT-Pro-B Natriuret Pep Impressions: PICC Line Insertion 10/31/17 00:00 IMPRESSION: SUCCESSFUL PLACEMENT OF A 5 FR DUAL LUMEN 46 CM PICC IN THE RIGHT BASILIC VEIN. Guidance Fluoroscopy 11/01/17 00:00 IMPRESSION: SUCCESSFUL PLACEMENT OF A 5 FR DUAL LUMEN 46 CM PICC IN THE RIGHT BASILIC VEIN. Interventional Vascular Procedure 11/01/17 00:00 IMPRESSION: SUCCESSFUL PLACEMENT OF A 5 FR DUAL LUMEN 46 CM PICC IN THE RIGHT BASILIC VEIN. Chest X-Ray 11/13/17 07:00 IMPRESSION: Stable chest. Stable appropriate support lines and tubes. 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
[2017-11-13 18:23] LABS: POTASSIUM 3.7 mmol/L (3.6-5.0)
[2017-11-13] MEDS: ATORVASTATIN CALCIUM 10 MG TABLET NG SCH (21:20)
[2017-11-14] MEDS: SUCRALFATE SUSP 1 GM/10 ML UDCUP NG SCH ×3 (00:24→11:35)
[2017-11-14] MEDS: VANCOMYCIN HCL 1,000 MG in DEXTROSE 5%-WATER 250 ML IV SCH ×2 (01:17→12:14)
[2017-11-14] MEDS: PROPOFOL 1,000 MG/100 ML INFUS..BTL IV PRN ×2 (01:18→05:59)
[2017-11-14] MEDS: IPRATROPIUM/ALBUTEROL 0.5-2.5 MG/3 ML AMPUL NEB SCH ×4 (02:46→20:25)
[2017-11-14] MEDS: 1/2 NORMAL SALINE 1,000 ML IV PRN ×2 (05:45→16:09)
[2017-11-14 06:38] LABS: ARTERIAL BLOOD BASE EXCESS 6.7 mmol/L; ARTERIAL BLOOD H2CO3 1.61 mmol/L (1.05-1.35); ARTERIAL BLOOD PCO2 53.4 mmHg (35-45); ARTERIAL BLOOD PH 7.41 (7.35-7.45); ARTERIAL BLOOD PO2 110.2 mmHg (80-100); ARTERIAL BLOOD TOTAL CO2 34.7 mmol/L (21-25)
[2017-11-14 06:40] LABS: ARTERIAL BLOOD FIO2 40%
[2017-11-14 06:44] LABS: ABSOLUTE BASOPHILS # (AUTO) 0.1 10^3/uL (0.0-0.2); ABSOLUTE EOSINOPHILS # (AUTO) 0.1 10^3/uL (0.0-0.6); ABSOLUTE LYMPHOCYTES (AUTO) 2.2 10^3/uL (0.5-4.7); ABSOLUTE MONOCYTES (AUTO) 0.4 10^3/uL (0.1-1.4); ABSOLUTE NEUT (AUTO) 7.7 10^3/uL (1.7-8.2); BASOPHILS % (AUTO) 0.6 % (0-2); EOSINOPHILS % (AUTO) 1.1 % (0-6); HEMATOCRIT 30.9 % (36.0-47.0); HEMOGLOBIN 10.2 g/dL (12.0-15.5); LYMPHOCYTES % (AUTO) 20.7 % (13-45); MEAN CORPUSCULAR HEMOGLOBIN 26.1 pg (27.0-33.4); MEAN CORPUSCULAR VOLUME 79 fl (80-97); MONOCYTES % (AUTO) 3.6 % (3-13); PLATELET COUNT 235 10^3/uL (150-450); RED BLOOD COUNT 3.91 10^6/uL (3.72-5.28); RED CELL DISTRIBUTION WIDTH 16.5 % (11.5-14.0); TOTAL CELLS COUNTED % (AUTO) 100 %; WHITE BLOOD COUNT 10.5 10^3/uL (4.0-10.5)
[2017-11-14 06:59] LABS: ALANINE AMINOTRANSFERASE 55 U/L (9-52); ALBUMIN 2.9 g/dL (3.5-5.0); ALKALINE PHOSPHATASE 52 U/L (38-126); ANION GAP 13 (5-19); ASPARTATE AMINO TRANSFERASE 25 U/L (14-36); BLOOD UREA NITROGEN 17 mg/dL (7-20); CALCIUM 7.9 mg/dL (8.4-10.2); CARBON DIOXIDE 26 mmol/L (22-30); CHLORIDE 96 mmol/L (98-107); GLUCOSE 137 mg/dL (75-110); POTASSIUM 3.2 mmol/L (3.6-5.0); SODIUM 134.7 mmol/L (137-145); TOTAL PROTEIN 5.7 g/dL (6.3-8.2)
[2017-11-14 07:06] LABS: BILIRUBIN,TOTAL < 0.1 mg/dL (0.2-1.3)
[2017-11-14] MEDS: ACETYLCYSTEINE 20% SOLN 800 MG/4 ML VIAL.NEB NEB SCH ×2 (08:36→20:25)
--- NOTE | 2017-11-14 08:45 | RADIOLOGY REPORT (SQ) ---
"EXAM DESCRIPTION: CHEST SINGLE VIEW COMPLETED DATE/TIME: 11/14/2017 6:19 am REASON FOR STUDY: pneumonia COMPARISON: 11/13/2017 NUMBER OF VIEWS: One view. TECHNIQUE: Single frontal radiographic image of the chest acquired. LIMITATIONS: Positioning. FINDINGS: LUNGS AND PLEURA: Bilateral airspace disease, left greater than right not significantly ch anged. No pneumothorax. MEDIASTINUM AND HILAR STRUCTURES: Stable heart size and mediastinal structures. HEART AND VASCULAR STRUCTURES: Stable appearance. SUPPORT DEVICES: Appropriate location without change. BONES: No acute findings. OTHER: No other significant finding. IMPRESSION: Bilateral pneumonia. No significant change. 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
--- NOTE | 2017-11-14 09:04 | EKG REPORT ---
SEVERITY:- ABNORMAL ECG - SINUS RHYTHM VENTRICULAR PREMATURE COMPLEX PROBABLE INFERIOR INFARCT, AGE INDETERMINATE PROBABLE ANTEROSEPTAL INFARCT, AGE INDETERM : Confirmed by: Grazyna Herrera 14-Nov-2017 09:04:15
[2017-11-14] MEDS: LEVOTHYROXINE SODIUM 0.075 MG TABLET NG SCH (11:33)
[2017-11-14] MEDS: GABAPENTIN 400 MG CAPSULE NG SCH (11:34)
[2017-11-14] MEDS: SERTRALINE HCL 50 MG TABLET NG SCH (11:34)
[2017-11-14] MEDS ORDERED: DEXTROSE 40% GEL 15 GM TUBE PO PRN (12:00)
[2017-11-14] MEDS ORDERED: DEXTROSE 40% GEL 15 GM TUBE X 2 PO PRN (12:00)
[2017-11-14] MEDS: METHYLPREDNISOLONE INJ 40 MG/1 ML SDV IV SCH ×2 (12:13→21:42)
[2017-11-14] MEDS: PANTOPRAZOLE SODIUM 40 MG VIAL IV SCH (12:13)
[2017-11-14] MEDS: ENOXAPARIN SODIUM INJ 40 MG/0.4 ML DISP.SYRIN SUBCUT SCH (12:14)
[2017-11-14] MEDS: FUROSEMIDE INJ/PF 40 MG/4 ML SDV IV SCH (12:14)
[2017-11-14 12:15] LABS: VANCOMYCIN,TROUGH 21.3 ug/mL (5.0-20.0)
[2017-11-14] MEDS: SUCRALFATE SUSP 1 GM/10 ML UDCUP PO SCH ×2 (12:15→17:39)
[2017-11-14] MEDS: NORMAL SALINE 10 ML SDV (SCHEDULED) IV SCH ×2 (12:15→21:43)
[2017-11-14] MEDS ORDERED: MAGNESIUM SULFATE/D5W 1 GM/100 ML RTUPB IV ONE (15:51)
[2017-11-14] MEDS ORDERED: POTASSI CL 20 MEQ/50 ML RIDER 20 MEQ/50 ML RTUPB IV ONE (15:51)
[2017-11-14 15:52] LABS: ARTERIAL BLOOD BASE EXCESS 7.7 mmol/L; ARTERIAL BLOOD H2CO3 1.69 mmol/L (1.05-1.35); ARTERIAL BLOOD HCO3 34.1 mmol/L (20-26); ARTERIAL BLOOD O2 SATURATION 91.5 % (94-98); ARTERIAL BLOOD PCO2 56.2 mmHg (35-45); ARTERIAL BLOOD PO2 62.5 mmHg (80-100); ARTERIAL BLOOD TOTAL CO2 35.8 mmol/L (21-25)
[2017-11-14 15:56] LABS: ARTERIAL BLOOD FIO2 35
[2017-11-14] MEDS: POTASSIUM CHLORIDE 20 MEQ/50 ML RTU IV SCH ×2 (17:35)
[2017-11-14] MEDS: MAGNESIUM SULFATE 1 GM/D5W 100 ML IV SCH ×2 (17:37)
[2017-11-14] MEDS: MORPHINE SULFATE 10 MG/ML INJ IV PRN (17:38)
[2017-11-14] MEDS: CEFEPIME 2 GM/D5W RTU 2 GM/50 ML RTUPB IV SCH (17:41)
[2017-11-14] MEDS ORDERED: FUROSEMIDE INJ/PF 20 MG/2 ML SDV ONE (17:50)
[2017-11-14] MEDS ORDERED: GUAIFENESIN SYRP 200 MG/10 ML UDC PO PRN (18:00)
[2017-11-14] MEDS ORDERED: FUROSEMIDE INJ/PF 20 MG/2 ML SDV IV ONE (18:30)
--- NOTE | 2017-11-14 20:38 | PDOC PROGRESS REPORT ---
Subjective Progress Note for:: 11/14/17 Subjective:: She was extubated today Reason For Visit: ACUTE RESPIRATORY FAILURE WITH HYPERCAPNIA, Physical Exam Vital Signs: Temp Pulse Resp BP Pulse Ox 99.7 F 79 18 138/66 H 96 11/14/17 19:30 11/14/17 18:00 11/14/17 18:15 11/14/17 18:00 11/14/17 18:15 Intake & Output 11/13/17 11/14/17 11/15/17 06:59 06:59 06:59 Intake Total 4332 4448 1232 Output Total 4506 7795 7690 Balance -129 137 -6322 Weight 171.1 kg 177.8 kg General appearance: PRESENT: no acute distress Eye exam: PRESENT: PERRLA Respiratory exam: PRESENT: clear to auscultation kurt Cardiovascular exam: PRESENT: +S1, +S2 Neurological exam: PRESENT: alert Results Laboratory Results: 11/14/17 06:09 11/14/17 06:09 11/14/17 11/14/17 11/14/17 06:09 06:09 06:09 WBC 10.5 RBC 3.91 Hgb 10.2 L Hct 30.9 L MCV 79 L MCH 26.1 L MCHC 33.0 RDW 16.5 H Plt Count 235 Seg Neutrophils % 74.0 Lymphocytes % 20.7 Monocytes % 3.6 Eosinophils % 1.1 Basophils % 0.6 Absolute Neutrophils 7.7 Absolute Lymphocytes 2.2 Absolute Monocytes 0.4 Absolute Eosinophils 0.1 Absolute Basophils 0.1 Carbonic Acid 1.61 H HCO3/H2CO3 Ratio 20:1 ABG pH 7.41 ABG pCO2 53.4 H ABG pO2 110.2 H ABG HCO3 33.0 H ABG O2 Saturation 98.0 ABG Base Excess 6.7 FiO2 40% Sodium 134.7 L Potassium 3.2 L Chloride 96 L Carbon Dioxide 26 Anion Gap 13 BUN 17 Creatinine 0.66 Est GFR ( Amer) > 60 Est GFR (Non-Af Amer) > 60 Glucose 137 H Calcium 7.9 L Magnesium 1.5 L Total Bilirubin < 0.1 L AST 25 ALT 55 H Alkaline Phosphatase 52 Total Protein 5.7 L Albumin 2.9 L 11/14/17 11/14/17 14:45 15:40 WBC RBC Hgb Hct MCV MCH MCHC RDW Plt Count Seg Neutrophils % Lymphocytes % Monocytes % Eosinophils % Basophils % Absolute Neutrophils Absolute Lymphocytes Absolute Monocytes Absolute Eosinophils Absolute Basophils Carbonic Acid Cancelled 1.69 H HCO3/H2CO3 Ratio Cancelled 20:1 ABG pH Cancelled 7.40 ABG pCO2 Cancelled 56.2 H ABG pO2 Cancelled 62.5 L ABG HCO3 Cancelled 34.1 H ABG O2 Saturation Cancelled 91.5 L ABG Base Excess Cancelled 7.7 FiO2 Cancelled 35 Sodium Potassium Chloride Carbon Dioxide Anion Gap BUN Creatinine Est GFR ( Amer) Est GFR (Non-Af Amer) Glucose Calcium Magnesium Total Bilirubin AST ALT Alkaline Phosphatase Total Protein Albumin 10/30/17 10/30/17 10/30/17 19:56 19:56 19:56 Creatine Kinase 75 CK-MB (CK-2) 2.28 Troponin I 0.447 NT-Pro-B Natriuret Pep 10427 H 10/31/17 10/31/17 10/31/17 01:42 01:42 07:16 Creatine Kinase 55 46 CK-MB (CK-2) 2.30 Troponin I 0.430 NT-Pro-B Natriuret Pep 10/31/17 11/01/17 11/14/17 07:16 05:01 17:55 Creatine Kinase CK-MB (CK-2) 2.18 Troponin I 0.399 0.340 NT-Pro-B Natriuret Pep 1800 H Impressions: PICC Line Insertion 10/31/17 00:00 IMPRESSION: SUCCESSFUL PLACEMENT OF A 5 FR DUAL LUMEN 46 CM PICC IN THE RIGHT BASILIC VEIN. Guidance Fluoroscopy 11/01/17 00:00 IMPRESSION: SUCCESSFUL PLACEMENT OF A 5 FR DUAL LUMEN 46 CM PICC IN THE RIGHT BASILIC VEIN. Interventional Vascular Procedure 11/01/17 00:00 IMPRESSION: SUCCESSFUL PLACEMENT OF A 5 FR DUAL LUMEN 46 CM PICC IN THE RIGHT BASILIC VEIN. Chest X-Ray 11/14/17 07:00 IMPRESSION: Bilateral pneumonia. No significant change. 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
[2017-11-14] MEDS: ATORVASTATIN CALCIUM 10 MG TABLET PO SCH (21:42)
[2017-11-14] MEDS: GABAPENTIN 400 MG CAPSULE PO SCH (21:42)
[2017-11-14 23:34] LABS: ANION GAP 13 (5-19); BLOOD UREA NITROGEN 19 mg/dL (7-20); CALCIUM 8.9 mg/dL (8.4-10.2); CARBON DIOXIDE 34 mmol/L (22-30); CHLORIDE 99 mmol/L (98-107); GLUCOSE 120 mg/dL (75-110); POTASSIUM 3.6 mmol/L (3.6-5.0)
[2017-11-15] MEDS: SUCRALFATE SUSP 1 GM/10 ML UDCUP PO SCH ×4 (00:16→18:00)
[2017-11-15] MEDS: VANCOMYCIN HCL 1,250 MG in DEXTROSE 5%-WATER 250 ML IV SCH ×2 (01:42→14:07)
[2017-11-15] MEDS: IPRATROPIUM/ALBUTEROL 0.5-2.5 MG/3 ML AMPUL NEB SCH ×4 (02:09→20:40)
[2017-11-15] MEDS: CEFEPIME 2 GM/D5W RTU 2 GM/50 ML RTUPB IV SCH ×2 (06:44→18:00)
--- NOTE | 2017-11-15 06:52 | RADIOLOGY REPORT (SQ) ---
EXAM DESCRIPTION: XR CHEST 1 VIEW COMPLETED DATE/TME: 11/15/2017 07:00 CLINICAL HISTORY: 71 years Female, pneumonia COMPARISON: One day prior. NUMBER OF VIEWS/TECHNIQUE: 1/AP FINDINGS: Mild central edema pattern, small left lower lobar streaky opacity, small right infrahilar patchiness, moderate lung volume, normal cardiac silhouette, right subclavian central line tip at the cavoatrial junction partially obscured, interval extubation. No pneumothorax. No acute bone defect. IMPRESSION: No significant change.
[2017-11-15 06:55] LABS: ABSOLUTE BASOPHILS # (AUTO) 0.1 10^3/uL (0.0-0.2); ABSOLUTE EOSINOPHILS # (AUTO) 0.1 10^3/uL (0.0-0.6); ABSOLUTE LYMPHOCYTES (AUTO) 2.7 10^3/uL (0.5-4.7); ABSOLUTE MONOCYTES (AUTO) 0.5 10^3/uL (0.1-1.4); ABSOLUTE NEUT (AUTO) 7.7 10^3/uL (1.7-8.2); BASOPHILS % (AUTO) 0.7 % (0-2); EOSINOPHILS % (AUTO) 1.3 % (0-6); HEMOGLOBIN 10.9 g/dL (12.0-15.5); LYMPHOCYTES % (AUTO) 24.3 % (13-45); MEAN CORPUSCULAR HEMOGLOBIN 25.2 pg (27.0-33.4); MEAN CORPUSCULAR VOLUME 79 fl (80-97); MONOCYTES % (AUTO) 4.6 % (3-13); PLATELET COUNT 265 10^3/uL (150-450); RED BLOOD COUNT 4.31 10^6/uL (3.72-5.28); RED CELL DISTRIBUTION WIDTH 16.8 % (11.5-14.0); SEGMENTED NEUTROPHILS % (AUTO) 69.1 % (42-78); TOTAL CELLS COUNTED % (AUTO) 100 %; WHITE BLOOD COUNT 11.1 10^3/uL (4.0-10.5)
[2017-11-15 06:58] LABS: ARTERIAL BLOOD BASE EXCESS 7.8 mmol/L; ARTERIAL BLOOD H2CO3 1.75 mmol/L (1.05-1.35); ARTERIAL BLOOD HCO3 34.3 mmol/L (20-26); ARTERIAL BLOOD PH 7.39 (7.35-7.45); ARTERIAL BLOOD TOTAL CO2 36.1 mmol/L (21-25)
[2017-11-15 07:01] LABS: ARTERIAL BLOOD FIO2 35%
[2017-11-15 07:13] LABS: ALANINE AMINOTRANSFERASE 58 U/L (9-52); ALBUMIN 3.4 g/dL (3.5-5.0); ALKALINE PHOSPHATASE 57 U/L (38-126); ANION GAP 12 (5-19); ASPARTATE AMINO TRANSFERASE 27 U/L (14-36); BILIRUBIN,DIRECT 0.3 mg/dL (0.0-0.4); BILIRUBIN,TOTAL 0.3 mg/dL (0.2-1.3); BLOOD UREA NITROGEN 17 mg/dL (7-20); CALCIUM 8.9 mg/dL (8.4-10.2); CARBON DIOXIDE 35 mmol/L (22-30); CHLORIDE 100 mmol/L (98-107); GLUCOSE 116 mg/dL (75-110); PHOSPHORUS 4.4 mg/dL (2.5-4.5); POTASSIUM 3.5 mmol/L (3.6-5.0); SODIUM 146.9 mmol/L (137-145); TOTAL PROTEIN 6.6 g/dL (6.3-8.2)
[2017-11-15] MEDS: ACETYLCYSTEINE 20% SOLN 800 MG/4 ML VIAL.NEB NEB SCH ×2 (08:09→20:42)
[2017-11-15] MEDS: ENOXAPARIN SODIUM INJ 40 MG/0.4 ML DISP.SYRIN SUBCUT SCH (09:31)
[2017-11-15] MEDS: LEVOTHYROXINE SODIUM 0.075 MG TABLET PO SCH (09:32)
[2017-11-15] MEDS: GABAPENTIN 400 MG CAPSULE PO SCH ×2 (09:32→21:48)
[2017-11-15] MEDS: SERTRALINE HCL 50 MG TABLET PO SCH (09:32)
[2017-11-15] MEDS: PANTOPRAZOLE SODIUM 40 MG VIAL IV SCH (09:33)
[2017-11-15] MEDS: METHYLPREDNISOLONE INJ 40 MG/1 ML SDV IV SCH ×2 (09:33→21:47)
[2017-11-15] MEDS: NORMAL SALINE 10 ML SDV (SCHEDULED) IV SCH ×2 (09:34→21:48)
[2017-11-15] MEDS: FUROSEMIDE INJ/PF 40 MG/4 ML SDV IV SCH (09:45)
[2017-11-15] MEDS: 1/2 NORMAL SALINE 1,000 ML IV PRN (14:06)
--- NOTE | 2017-11-15 21:46 | PDOC PROGRESS REPORT ---
Subjective Progress Note for:: 11/15/17 Subjective:: Patient was seen by the bedside extubated she has diffuse expiratory wheeze in both lung field Reason For Visit: ACUTE RESPIRATORY FAILURE WITH HYPERCAPNIA, Physical Exam Vital Signs: Temp Pulse Resp BP Pulse Ox 99.7 F 68 20 147/84 H 100 11/15/17 19:37 11/15/17 20:40 11/15/17 20:40 11/15/17 18:00 11/15/17 20:40 Intake & Output 11/14/17 11/15/17 11/16/17 06:59 06:59 06:59 Intake Total 4420 2632 900 Output Total 4582 5666 4191 Balance -128 -0111 -1861 Weight 177.8 kg 174.1 kg General appearance: PRESENT: morbidly obese Eye exam: PRESENT: PERRLA Respiratory exam: PRESENT: wheezes Cardiovascular exam: PRESENT: +S1, +S2 GI/Abdominal exam: PRESENT: soft, other - obese Neurological exam: PRESENT: alert Results Laboratory Results: 11/15/17 06:35 11/15/17 06:35 11/14/17 11/15/17 11/15/17 23:05 06:35 06:35 WBC 11.1 H RBC 4.31 Hgb 10.9 L Hct 34.0 L MCV 79 L MCH 25.2 L MCHC 32.0 RDW 16.8 H Plt Count 265 Seg Neutrophils % 69.1 Lymphocytes % 24.3 Monocytes % 4.6 Eosinophils % 1.3 Basophils % 0.7 Absolute Neutrophils 7.7 Absolute Lymphocytes 2.7 Absolute Monocytes 0.5 Absolute Eosinophils 0.1 Absolute Basophils 0.1 Carbonic Acid HCO3/H2CO3 Ratio ABG pH ABG pCO2 ABG pO2 ABG HCO3 ABG O2 Saturation ABG Base Excess FiO2 Sodium 146.0 H 146.9 H Potassium 3.6 3.5 L Chloride 99 100 Carbon Dioxide 34 H 35 H Anion Gap 13 12 BUN 19 17 Creatinine 0.80 0.81 Est GFR ( Amer) > 60 > 60 Est GFR (Non-Af Amer) > 60 > 60 Glucose 120 H 116 H Calcium 8.9 8.9 Phosphorus 4.4 Magnesium 1.9 1.9 Total Bilirubin 0.3 AST 27 ALT 58 H Alkaline Phosphatase 57 Total Protein 6.6 Albumin 3.4 L 11/15/17 06:35 WBC RBC Hgb Hct MCV MCH MCHC RDW Plt Count Seg Neutrophils % Lymphocytes % Monocytes % Eosinophils % Basophils % Absolute Neutrophils Absolute Lymphocytes Absolute Monocytes Absolute Eosinophils Absolute Basophils Carbonic Acid 1.75 H HCO3/H2CO3 Ratio 19:1 ABG pH 7.39 ABG pCO2 58.0 H ABG pO2 112.0 H ABG HCO3 34.3 H ABG O2 Saturation 98.0 ABG Base Excess 7.8 FiO2 35% Sodium Potassium Chloride Carbon Dioxide Anion Gap BUN Creatinine Est GFR ( Amer) Est GFR (Non-Af Amer) Glucose Calcium Phosphorus Magnesium Total Bilirubin AST ALT Alkaline Phosphatase Total Protein Albumin 11/12/17 11:10 Bronchial Washings AFB Smear Concentration - Final 11/12/17 11:10 Bronchial Washings Acid Fast Bacilli Smear - Final 11/12/17 11:10 Bronchial Washings Gram Stain - Final 11/12/17 11:10 Bronchial Washings Bronchial Washings Culture - Final Acinetobacter Species Staphylococcus Aureus Normal Nancy Absent 10/30/17 10/30/17 10/30/17 19:56 19:56 19:56 Creatine Kinase 75 CK-MB (CK-2) 2.28 Troponin I 0.447 NT-Pro-B Natriuret Pep 00333 H 10/31/17 10/31/17 10/31/17 01:42 01:42 07:16 Creatine Kinase 55 46 CK-MB (CK-2) 2.30 Troponin I 0.430 NT-Pro-B Natriuret Pep 10/31/17 11/01/17 11/14/17 07:16 05:01 17:55 Creatine Kinase CK-MB (CK-2) 2.18 Troponin I 0.399 0.340 NT-Pro-B Natriuret Pep 1800 H Impressions: PICC Line Insertion 10/31/17 00:00 IMPRESSION: SUCCESSFUL PLACEMENT OF A 5 FR DUAL LUMEN 46 CM PICC IN THE RIGHT BASILIC VEIN. Guidance Fluoroscopy 11/01/17 00:00 IMPRESSION: SUCCESSFUL PLACEMENT OF A 5 FR DUAL LUMEN 46 CM PICC IN THE RIGHT BASILIC VEIN. Interventional Vascular Procedure 11/01/17 00:00 IMPRESSION: SUCCESSFUL PLACEMENT OF A 5 FR DUAL LUMEN 46 CM PICC IN THE RIGHT BASILIC VEIN. Chest X-Ray 11/15/17 07:00 IMPRESSION: No significant change. 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
[2017-11-15] MEDS: ATORVASTATIN CALCIUM 10 MG TABLET PO SCH (21:47)
[2017-11-16] MEDS: SUCRALFATE SUSP 1 GM/10 ML UDCUP PO SCH ×4 (01:16→17:43)
[2017-11-16] MEDS: IPRATROPIUM/ALBUTEROL 0.5-2.5 MG/3 ML AMPUL NEB SCH ×4 (01:49→20:05)
[2017-11-16] MEDS: VANCOMYCIN HCL 1,250 MG in DEXTROSE 5%-WATER 250 ML IV SCH ×2 (04:32→13:49)
[2017-11-16 05:30] LABS: ARTERIAL BLOOD BASE EXCESS 9.2 mmol/L; ARTERIAL BLOOD H2CO3 1.81 mmol/L (1.05-1.35); ARTERIAL BLOOD O2 SATURATION 95.4 % (94-98); ARTERIAL BLOOD PO2 79.6 mmHg (80-100); ARTERIAL BLOOD TOTAL CO2 37.8 mmol/L (21-25)
[2017-11-16 05:32] LABS: ARTERIAL BLOOD FIO2 28
[2017-11-16 05:33] LABS: ABSOLUTE BASOPHILS # (AUTO) 0.1 10^3/uL (0.0-0.2); ABSOLUTE EOSINOPHILS # (AUTO) 0.1 10^3/uL (0.0-0.6); ABSOLUTE LYMPHOCYTES (AUTO) 2.3 10^3/uL (0.5-4.7); ABSOLUTE MONOCYTES (AUTO) 0.4 10^3/uL (0.1-1.4); ABSOLUTE NEUT (AUTO) 7.6 10^3/uL (1.7-8.2); EOSINOPHILS % (AUTO) 1.3 % (0-6); HEMATOCRIT 35.3 % (36.0-47.0); HEMOGLOBIN 11.2 g/dL (12.0-15.5); MEAN CORPUSCULAR HEMOGLOBIN 25.2 pg (27.0-33.4); MEAN CORPUSCULAR HGB CONC 31.8 g/dL (32.0-36.0); MEAN CORPUSCULAR VOLUME 79 fl (80-97); MONOCYTES % (AUTO) 3.5 % (3-13); PLATELET COUNT 245 10^3/uL (150-450); RED BLOOD COUNT 4.46 10^6/uL (3.72-5.28); RED CELL DISTRIBUTION WIDTH 16.4 % (11.5-14.0); SEGMENTED NEUTROPHILS % (AUTO) 72.2 % (42-78); TOTAL CELLS COUNTED % (AUTO) 100 %; WHITE BLOOD COUNT 10.5 10^3/uL (4.0-10.5)
[2017-11-16] MEDS: CEFEPIME 2 GM/D5W RTU 2 GM/50 ML RTUPB IV SCH ×2 (05:40→17:43)
[2017-11-16 05:53] LABS: ALANINE AMINOTRANSFERASE 64 U/L (9-52); ALBUMIN 3.4 g/dL (3.5-5.0); ALKALINE PHOSPHATASE 57 U/L (38-126); ANION GAP 12 (5-19); ASPARTATE AMINO TRANSFERASE 32 U/L (14-36); BILIRUBIN,DIRECT 0.4 mg/dL (0.0-0.4); BILIRUBIN,TOTAL 0.4 mg/dL (0.2-1.3); BLOOD UREA NITROGEN 20 mg/dL (7-20); CARBON DIOXIDE 35 mmol/L (22-30); CHLORIDE 99 mmol/L (98-107); GLUCOSE 151 mg/dL (75-110); PHOSPHORUS 4.4 mg/dL (2.5-4.5); POTASSIUM 3.5 mmol/L (3.6-5.0); SODIUM 146.2 mmol/L (137-145); TOTAL PROTEIN 6.7 g/dL (6.3-8.2)
--- NOTE | 2017-11-16 06:36 | RADIOLOGY REPORT (SQ) ---
EXAM DESCRIPTION: XR CHEST 1 VIEW COMPLETED DATE/TME: 11/16/2017 07:00 CLINICAL HISTORY: 71 years Female, pneumonia COMPARISON: One day prior. NUMBER OF VIEWS/TECHNIQUE: 1/AP FINDINGS: Moderate mixed airspace and interstitial opacity worse in the left lower lung field and right perihilar region, left greater than right, prominent cardiac silhouette, right subclavian central line tip at the cavoatrial junction. No pneumothorax. No acute bone defect. IMPRESSION: No significant change.
[2017-11-16] MEDS: ACETYLCYSTEINE 20% SOLN 800 MG/4 ML VIAL.NEB NEB SCH ×2 (09:21→20:05)
[2017-11-16] MEDS: FUROSEMIDE INJ/PF 40 MG/4 ML SDV IV SCH (09:35)
[2017-11-16] MEDS: METHYLPREDNISOLONE INJ 40 MG/1 ML SDV IV SCH ×2 (09:35→22:57)
[2017-11-16] MEDS: NORMAL SALINE 10 ML SDV (SCHEDULED) IV SCH ×2 (09:36→22:59)
[2017-11-16] MEDS: SERTRALINE HCL 50 MG TABLET PO SCH (09:37)
[2017-11-16] MEDS: ENOXAPARIN SODIUM INJ 40 MG/0.4 ML DISP.SYRIN SUBCUT SCH (09:37)
[2017-11-16] MEDS: LEVOTHYROXINE SODIUM 0.075 MG TABLET PO SCH (09:37)
[2017-11-16] MEDS: GABAPENTIN 400 MG CAPSULE PO SCH ×2 (09:37→22:58)
[2017-11-16] MEDS: 1/2 NORMAL SALINE 1,000 ML IV PRN (13:43)
[2017-11-16] MEDS: POTASSIUM CHLORIDE 20 MEQ/50 ML RTU IV SCH ×2 (13:48→16:11)
[2017-11-16 15:06] LABS: VANCOMYCIN,TROUGH 24.3 ug/mL (5.0-20.0)
--- NOTE | 2017-11-16 16:24 | PDOC PROGRESS REPORT ---
Subjective Progress Note for:: 11/16/17 Subjective:: Patient was seen by the bedside, she just had lunch, she is very sleepy Reason For Visit: ACUTE RESPIRATORY FAILURE WITH HYPERCAPNIA, Physical Exam Vital Signs: Temp Pulse Resp BP Pulse Ox 99.7 F 85 18 116/70 96 11/16/17 14:31 11/16/17 13:59 11/16/17 14:31 11/16/17 14:31 11/16/17 14:31 Intake & Output 11/15/17 11/16/17 11/17/17 06:59 06:59 06:59 Intake Total 2632 2250 300 Output Total 6610 6777 3470 Balance -8428 -658 -9527 Weight 174.1 kg 173.6 kg General appearance: PRESENT: no acute distress Respiratory exam: PRESENT: clear to auscultation kurt Cardiovascular exam: PRESENT: +S1, +S2 GI/Abdominal exam: PRESENT: soft Neurological exam: PRESENT: alert Results Laboratory Results: 11/16/17 05:15 11/16/17 05:15 11/16/17 11/16/17 11/16/17 05:15 05:15 05:15 WBC 10.5 RBC 4.46 Hgb 11.2 L Hct 35.3 L MCV 79 L MCH 25.2 L MCHC 31.8 L RDW 16.4 H Plt Count 245 Seg Neutrophils % 72.2 Lymphocytes % 22.0 Monocytes % 3.5 Eosinophils % 1.3 Basophils % 1.0 Absolute Neutrophils 7.6 Absolute Lymphocytes 2.3 Absolute Monocytes 0.4 Absolute Eosinophils 0.1 Absolute Basophils 0.1 Carbonic Acid 1.81 H HCO3/H2CO3 Ratio 19:1 ABG pH 7.40 ABG pCO2 60.0 H ABG pO2 79.6 L ABG HCO3 36.0 H ABG O2 Saturation 95.4 ABG Base Excess 9.2 FiO2 28 Sodium 146.2 H Potassium 3.5 L Chloride 99 Carbon Dioxide 35 H Anion Gap 12 BUN 20 Creatinine 0.84 Est GFR ( Amer) > 60 Est GFR (Non-Af Amer) > 60 Glucose 151 H Calcium 9.0 Phosphorus 4.4 Magnesium 1.7 Total Bilirubin 0.4 AST 32 ALT 64 H Alkaline Phosphatase 57 Total Protein 6.7 Albumin 3.4 L 11/12/17 11:10 Bronchial Washings Fungal Smear - Final 11/12/17 11:10 Bronchial Washings Fungal Smear - Final 10/30/17 10/30/17 10/30/17 19:56 19:56 19:56 Creatine Kinase 75 CK-MB (CK-2) 2.28 Troponin I 0.447 NT-Pro-B Natriuret Pep 34230 H 10/31/17 10/31/17 10/31/17 01:42 01:42 07:16 Creatine Kinase 55 46 CK-MB (CK-2) 2.30 Troponin I 0.430 NT-Pro-B Natriuret Pep 10/31/17 11/01/17 11/14/17 07:16 05:01 17:55 Creatine Kinase CK-MB (CK-2) 2.18 Troponin I 0.399 0.340 NT-Pro-B Natriuret Pep 1800 H Impressions: PICC Line Insertion 10/31/17 00:00 IMPRESSION: SUCCESSFUL PLACEMENT OF A 5 FR DUAL LUMEN 46 CM PICC IN THE RIGHT BASILIC VEIN. Guidance Fluoroscopy 11/01/17 00:00 IMPRESSION: SUCCESSFUL PLACEMENT OF A 5 FR DUAL LUMEN 46 CM PICC IN THE RIGHT BASILIC VEIN. Interventional Vascular Procedure 11/01/17 00:00 IMPRESSION: SUCCESSFUL PLACEMENT OF A 5 FR DUAL LUMEN 46 CM PICC IN THE RIGHT BASILIC VEIN. Chest X-Ray 11/16/17 07:00 IMPRESSION: No significant change. 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
[2017-11-16] MEDS: ATORVASTATIN CALCIUM 10 MG TABLET PO SCH (22:58)
[2017-11-17] MEDS: SUCRALFATE SUSP 1 GM/10 ML UDCUP PO SCH ×4 (00:11→18:05)
[2017-11-17] MEDS: IPRATROPIUM/ALBUTEROL 0.5-2.5 MG/3 ML AMPUL NEB SCH ×4 (01:28→19:54)
[2017-11-17] MEDS: CEFEPIME 2 GM/D5W RTU 2 GM/50 ML RTUPB IV SCH ×2 (05:54→18:05)
--- NOTE | 2017-11-17 06:31 | RADIOLOGY REPORT (SQ) ---
EXAM DESCRIPTION: XR CHEST 1 VIEW COMPLETED DATE/TME: 11/17/2017 07:00 CLINICAL HISTORY: 71 years Female, pneumonia COMPARISON: One day prior. NUMBER OF VIEWS/TECHNIQUE: 1/AP FINDINGS: Small streaky opacities/atelectasis of the left lower lobe, moderate lung volume, mild central edema pattern, normal cardiac silhouette, and right subclavian central line tip partially obscured at the SVC. No pneumothorax. No acute bone defect. IMPRESSION: No significant change.
[2017-11-17 06:42] LABS: ABSOLUTE BASOPHILS # (AUTO) 0.1 10^3/uL (0.0-0.2); ABSOLUTE EOSINOPHILS # (AUTO) 0.1 10^3/uL (0.0-0.6); ABSOLUTE LYMPHOCYTES (AUTO) 2.3 10^3/uL (0.5-4.7); ABSOLUTE MONOCYTES (AUTO) 0.4 10^3/uL (0.1-1.4); ABSOLUTE NEUT (AUTO) 7.1 10^3/uL (1.7-8.2); BASOPHILS % (AUTO) 0.7 % (0-2); EOSINOPHILS % (AUTO) 1.2 % (0-6); HEMATOCRIT 35.7 % (36.0-47.0); HEMOGLOBIN 11.3 g/dL (12.0-15.5); LYMPHOCYTES % (AUTO) 23.2 % (13-45); MEAN CORPUSCULAR HEMOGLOBIN 25.2 pg (27.0-33.4); MEAN CORPUSCULAR HGB CONC 31.6 g/dL (32.0-36.0); MEAN CORPUSCULAR VOLUME 80 fl (80-97); MONOCYTES % (AUTO) 3.7 % (3-13); PLATELET COUNT 236 10^3/uL (150-450); RED BLOOD COUNT 4.49 10^6/uL (3.72-5.28); RED CELL DISTRIBUTION WIDTH 16.5 % (11.5-14.0); SEGMENTED NEUTROPHILS % (AUTO) 71.2 % (42-78); TOTAL CELLS COUNTED % (AUTO) 100 %
[2017-11-17 06:55] LABS: ALANINE AMINOTRANSFERASE 66 U/L (9-52); ALBUMIN 3.7 g/dL (3.5-5.0); ALKALINE PHOSPHATASE 57 U/L (38-126); ANION GAP 12 (5-19); ASPARTATE AMINO TRANSFERASE 34 U/L (14-36); BILIRUBIN,DIRECT 0.3 mg/dL (0.0-0.4); BILIRUBIN,TOTAL 0.5 mg/dL (0.2-1.3); BLOOD UREA NITROGEN 22 mg/dL (7-20); CALCIUM 9.1 mg/dL (8.4-10.2); CARBON DIOXIDE 36 mmol/L (22-30); CHLORIDE 98 mmol/L (98-107); GLUCOSE 152 mg/dL (75-110); POTASSIUM 3.7 mmol/L (3.6-5.0); SODIUM 145.9 mmol/L (137-145); TOTAL PROTEIN 6.9 g/dL (6.3-8.2)
[2017-11-17] MEDS: ACETYLCYSTEINE 20% SOLN 800 MG/4 ML VIAL.NEB NEB SCH ×2 (07:53→19:54)
[2017-11-17] MEDS: LEVOTHYROXINE SODIUM 0.075 MG TABLET PO SCH (08:48)
[2017-11-17] MEDS: FUROSEMIDE INJ/PF 40 MG/4 ML SDV IV SCH (09:16)
[2017-11-17] MEDS: ENOXAPARIN SODIUM INJ 40 MG/0.4 ML DISP.SYRIN SUBCUT SCH (09:17)
[2017-11-17] MEDS: NORMAL SALINE 10 ML SDV (SCHEDULED) IV SCH (09:17)
[2017-11-17] MEDS: METHYLPREDNISOLONE INJ 40 MG/1 ML SDV IV SCH ×2 (09:18→21:28)
[2017-11-17] MEDS: GABAPENTIN 400 MG CAPSULE PO SCH ×2 (09:18→21:28)
[2017-11-17] MEDS: SERTRALINE HCL 50 MG TABLET PO SCH (09:18)
[2017-11-17 09:22] LABS: ARTERIAL BLOOD BASE EXCESS 6.7 mmol/L; ARTERIAL BLOOD H2CO3 1.74 mmol/L (1.05-1.35); ARTERIAL BLOOD HCO3 33.4 mmol/L (20-26); ARTERIAL BLOOD O2 SATURATION 95.2 % (94-98); ARTERIAL BLOOD PCO2 57.7 mmHg (35-45); ARTERIAL BLOOD PH 7.38 (7.35-7.45); ARTERIAL BLOOD PO2 78.9 mmHg (80-100); ARTERIAL BLOOD TOTAL CO2 35.1 mmol/L (21-25)
[2017-11-17 09:23] LABS: ARTERIAL BLOOD FIO2 5L
[2017-11-17] MEDS: VANCOMYCIN HCL 1,000 MG in DEXTROSE 5%-WATER 250 ML IV SCH ×2 (09:32→21:27)
[2017-11-17] MEDS: INSULIN LISPRO 100 UNIT/ML 3 ML VIAL SUBCUT PRN (11:39)
[2017-11-17] MEDS: 1/2 NORMAL SALINE 1,000 ML IV PRN (18:05)
--- NOTE | 2017-11-17 21:04 | PDOC PROGRESS REPORT ---
Subjective Progress Note for:: 11/17/17 Subjective:: Patient was seen by the bedside, she is alert, her condition is still precarious , she could be downgraded definitely she would need physical therapy Reason For Visit: ACUTE RESPIRATORY FAILURE WITH HYPERCAPNIA, Physical Exam Vital Signs: Temp Pulse Resp BP Pulse Ox 99.9 F 76 15 130/73 H 100 11/17/17 19:44 11/17/17 13:54 11/17/17 18:03 11/17/17 18:03 11/17/17 18:03 Intake & Output 11/16/17 11/17/17 11/18/17 06:59 06:59 06:59 Intake Total 2250 1450 668 Output Total 3143 0428 1773 Balance -582 -2178 -2842 Weight 173.6 kg 171.9 kg Eye exam: PRESENT: PERRLA Respiratory exam: PRESENT: rhonchi Cardiovascular exam: PRESENT: +S1, +S2 GI/Abdominal exam: PRESENT: soft Results Laboratory Results: 11/17/17 06:30 11/17/17 06:30 11/17/17 11/17/17 11/17/17 06:30 06:30 09:10 WBC 10.0 RBC 4.49 Hgb 11.3 L Hct 35.7 L MCV 80 MCH 25.2 L MCHC 31.6 L RDW 16.5 H Plt Count 236 Seg Neutrophils % 71.2 Lymphocytes % 23.2 Monocytes % 3.7 Eosinophils % 1.2 Basophils % 0.7 Absolute Neutrophils 7.1 Absolute Lymphocytes 2.3 Absolute Monocytes 0.4 Absolute Eosinophils 0.1 Absolute Basophils 0.1 Carbonic Acid 1.74 H HCO3/H2CO3 Ratio 19:1 ABG pH 7.38 ABG pCO2 57.7 H ABG pO2 78.9 L ABG HCO3 33.4 H ABG O2 Saturation 95.2 ABG Base Excess 6.7 FiO2 5L Sodium 145.9 H Potassium 3.7 Chloride 98 Carbon Dioxide 36 H Anion Gap 12 BUN 22 H Creatinine 0.84 Est GFR ( Amer) > 60 Est GFR (Non-Af Amer) > 60 Glucose 152 H Calcium 9.1 Phosphorus 4.0 Magnesium 1.6 Total Bilirubin 0.5 AST 34 ALT 66 H Alkaline Phosphatase 57 Total Protein 6.9 Albumin 3.7 10/30/17 10/30/17 10/30/17 19:56 19:56 19:56 Creatine Kinase 75 CK-MB (CK-2) 2.28 Troponin I 0.447 NT-Pro-B Natriuret Pep 79618 H 10/31/17 10/31/17 10/31/17 01:42 01:42 07:16 Creatine Kinase 55 46 CK-MB (CK-2) 2.30 Troponin I 0.430 NT-Pro-B Natriuret Pep 10/31/17 11/01/17 11/14/17 07:16 05:01 17:55 Creatine Kinase CK-MB (CK-2) 2.18 Troponin I 0.399 0.340 NT-Pro-B Natriuret Pep 1800 H Impressions: PICC Line Insertion 10/31/17 00:00 IMPRESSION: SUCCESSFUL PLACEMENT OF A 5 FR DUAL LUMEN 46 CM PICC IN THE RIGHT BASILIC VEIN. Guidance Fluoroscopy 11/01/17 00:00 IMPRESSION: SUCCESSFUL PLACEMENT OF A 5 FR DUAL LUMEN 46 CM PICC IN THE RIGHT BASILIC VEIN. Interventional Vascular Procedure 11/01/17 00:00 IMPRESSION: SUCCESSFUL PLACEMENT OF A 5 FR DUAL LUMEN 46 CM PICC IN THE RIGHT BASILIC VEIN. Chest X-Ray 11/17/17 07:00 IMPRESSION: No significant change. 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
[2017-11-17] MEDS: ATORVASTATIN CALCIUM 10 MG TABLET PO SCH (21:28)
[2017-11-18] MEDS: IPRATROPIUM/ALBUTEROL 0.5-2.5 MG/3 ML AMPUL NEB SCH ×4 (02:13→19:51)
[2017-11-18] MEDS: SUCRALFATE SUSP 1 GM/10 ML UDCUP PO SCH ×4 (02:41→19:02)
[2017-11-18] MEDS: NORMAL SALINE 10 ML SDV (SCHEDULED) IV SCH ×3 (02:41→22:19)
[2017-11-18 05:16] LABS: ABSOLUTE BASOPHILS # (AUTO) 0.1 10^3/uL (0.0-0.2); ABSOLUTE EOSINOPHILS # (AUTO) 0.3 10^3/uL (0.0-0.6); ABSOLUTE LYMPHOCYTES (AUTO) 3.3 10^3/uL (0.5-4.7); ABSOLUTE MONOCYTES (AUTO) 0.5 10^3/uL (0.1-1.4); ABSOLUTE NEUT (AUTO) 7.1 10^3/uL (1.7-8.2); BASOPHILS % (AUTO) 0.5 % (0-2); EOSINOPHILS % (AUTO) 2.4 % (0-6); HEMATOCRIT 35.4 % (36.0-47.0); HEMOGLOBIN 11.2 g/dL (12.0-15.5); LYMPHOCYTES % (AUTO) 29.2 % (13-45); MEAN CORPUSCULAR HEMOGLOBIN 25.3 pg (27.0-33.4); MEAN CORPUSCULAR HGB CONC 31.5 g/dL (32.0-36.0); MEAN CORPUSCULAR VOLUME 80 fl (80-97); MONOCYTES % (AUTO) 4.7 % (3-13); PLATELET COUNT 216 10^3/uL (150-450); RED BLOOD COUNT 4.41 10^6/uL (3.72-5.28); RED CELL DISTRIBUTION WIDTH 16.8 % (11.5-14.0); SEGMENTED NEUTROPHILS % (AUTO) 63.2 % (42-78); TOTAL CELLS COUNTED % (AUTO) 100 %; WHITE BLOOD COUNT 11.2 10^3/uL (4.0-10.5)
[2017-11-18 05:38] LABS: ALANINE AMINOTRANSFERASE 68 U/L (9-52); ALBUMIN 3.5 g/dL (3.5-5.0); ALKALINE PHOSPHATASE 54 U/L (38-126); ANION GAP 8 (5-19); ASPARTATE AMINO TRANSFERASE 35 U/L (14-36); BILIRUBIN,DIRECT 0.3 mg/dL (0.0-0.4); BILIRUBIN,TOTAL 0.3 mg/dL (0.2-1.3); BLOOD UREA NITROGEN 24 mg/dL (7-20); CALCIUM 9.2 mg/dL (8.4-10.2); CARBON DIOXIDE 38 mmol/L (22-30); CHLORIDE 99 mmol/L (98-107); GLUCOSE 144 mg/dL (75-110); POTASSIUM 3.6 mmol/L (3.6-5.0); SODIUM 145.2 mmol/L (137-145); TOTAL PROTEIN 6.8 g/dL (6.3-8.2)
[2017-11-18] MEDS: CEFEPIME 2 GM/D5W RTU 2 GM/50 ML RTUPB IV SCH ×2 (06:06→19:07)
--- NOTE | 2017-11-18 07:37 | RADIOLOGY REPORT (SQ) ---
EXAM DESCRIPTION: XR CHEST 1 VIEW COMPLETED DATE/TME: 11/18/2017 07:00 CLINICAL HISTORY: 71 years Female, pneumonia COMPARISON: One day prior. NUMBER OF VIEWS/TECHNIQUE: 1/AP FINDINGS: Mild central edema pattern, small streaky left lower lobar opacity, normal cardiac silhouette, right subclavian central line tip at the cavoatrial junction. No pneumothorax. No acute bone defect. IMPRESSION: No significant change.
[2017-11-18] MEDS: ACETYLCYSTEINE 20% SOLN 800 MG/4 ML VIAL.NEB NEB SCH ×2 (08:15→20:27)
[2017-11-18] MEDS: VANCOMYCIN HCL 1,000 MG in DEXTROSE 5%-WATER 250 ML IV SCH ×2 (09:30→22:18)
[2017-11-18 10:02] LABS: VANCOMYCIN,TROUGH 20.1 ug/mL (5.0-20.0)
[2017-11-18] MEDS: GABAPENTIN 400 MG CAPSULE PO SCH ×2 (10:39→22:20)
[2017-11-18] MEDS: SERTRALINE HCL 50 MG TABLET PO SCH (10:39)
[2017-11-18] MEDS: METHYLPREDNISOLONE INJ 40 MG/1 ML SDV IV SCH ×2 (10:39→22:18)
[2017-11-18] MEDS: FUROSEMIDE INJ/PF 40 MG/4 ML SDV IV SCH (10:40)
[2017-11-18] MEDS: ENOXAPARIN SODIUM INJ 40 MG/0.4 ML DISP.SYRIN SUBCUT SCH (10:41)
[2017-11-18] MEDS: LEVOTHYROXINE SODIUM 0.075 MG TABLET PO SCH (12:24)
[2017-11-18] MEDS: MORPHINE SULFATE 10 MG/ML INJ IV PRN (19:07)
[2017-11-18] MEDS: 1/2 NORMAL SALINE 1,000 ML IV PRN (19:13)
[2017-11-18] MEDS: IPRATROPIUM/ALBUTEROL 0.5-2.5 MG/3 ML AMPUL NEB PRN (20:27)
--- NOTE | 2017-11-18 20:29 | PDOC PROGRESS REPORT ---
Subjective Progress Note for:: 11/18/17 Subjective:: Patient was seen by the bedside she is downgraded to medical floor/[facility]CU Reason For Visit: ACUTE RESPIRATORY FAILURE WITH HYPERCAPNIA, Physical Exam Vital Signs: Temp Pulse Resp BP Pulse Ox 98.7 F 78 18 130/81 H 99 11/18/17 19:32 11/18/17 19:52 11/18/17 19:52 11/18/17 19:32 11/18/17 19:52 Intake & Output 11/17/17 11/18/17 11/19/17 06:59 06:59 06:59 Intake Total 0402 899 8205 Output Total 3085 3100 1600 Balance -7303 -2766 -300 Weight 171.9 kg 172.4 kg 161.8 kg General appearance: PRESENT: no acute distress Eye exam: PRESENT: PERRLA Cardiovascular exam: PRESENT: +S1, +S2 GI/Abdominal exam: PRESENT: soft Neurological exam: PRESENT: alert Results Laboratory Results: 11/18/17 04:55 11/18/17 04:55 11/18/17 11/18/17 04:55 04:55 WBC 11.2 H RBC 4.41 Hgb 11.2 L Hct 35.4 L MCV 80 MCH 25.3 L MCHC 31.5 L RDW 16.8 H Plt Count 216 Seg Neutrophils % 63.2 Lymphocytes % 29.2 Monocytes % 4.7 Eosinophils % 2.4 Basophils % 0.5 Absolute Neutrophils 7.1 Absolute Lymphocytes 3.3 Absolute Monocytes 0.5 Absolute Eosinophils 0.3 Absolute Basophils 0.1 Sodium 145.2 H Potassium 3.6 Chloride 99 Carbon Dioxide 38 H Anion Gap 8 BUN 24 H Creatinine 0.90 Est GFR ( Amer) > 60 Est GFR (Non-Af Amer) > 60 Glucose 144 H Calcium 9.2 Total Bilirubin 0.3 AST 35 ALT 68 H Alkaline Phosphatase 54 Total Protein 6.8 Albumin 3.5 10/30/17 10/30/17 10/30/17 19:56 19:56 19:56 Creatine Kinase 75 CK-MB (CK-2) 2.28 Troponin I 0.447 NT-Pro-B Natriuret Pep 46049 H 10/31/17 10/31/17 10/31/17 01:42 01:42 07:16 Creatine Kinase 55 46 CK-MB (CK-2) 2.30 Troponin I 0.430 NT-Pro-B Natriuret Pep 10/31/17 11/01/17 11/14/17 07:16 05:01 17:55 Creatine Kinase CK-MB (CK-2) 2.18 Troponin I 0.399 0.340 NT-Pro-B Natriuret Pep 1800 H Impressions: PICC Line Insertion 10/31/17 00:00 IMPRESSION: SUCCESSFUL PLACEMENT OF A 5 FR DUAL LUMEN 46 CM PICC IN THE RIGHT BASILIC VEIN. Guidance Fluoroscopy 11/01/17 00:00 IMPRESSION: SUCCESSFUL PLACEMENT OF A 5 FR DUAL LUMEN 46 CM PICC IN THE RIGHT BASILIC VEIN. Interventional Vascular Procedure 11/01/17 00:00 IMPRESSION: SUCCESSFUL PLACEMENT OF A 5 FR DUAL LUMEN 46 CM PICC IN THE RIGHT BASILIC VEIN. Chest X-Ray 11/18/17 07:00 IMPRESSION: No significant change. 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
[2017-11-18] MEDS: ATORVASTATIN CALCIUM 10 MG TABLET PO SCH (22:20)
[2017-11-19] MEDS: INSULIN LISPRO 100 UNIT/ML 3 ML VIAL SUBCUT PRN (00:26)
[2017-11-19] MEDS: SUCRALFATE SUSP 1 GM/10 ML UDCUP PO SCH ×4 (00:31→17:17)
[2017-11-19] MEDS: IPRATROPIUM/ALBUTEROL 0.5-2.5 MG/3 ML AMPUL NEB SCH ×4 (01:57→20:13)
[2017-11-19] MEDS: CEFEPIME 2 GM/D5W RTU 2 GM/50 ML RTUPB IV SCH ×2 (06:55→17:17)
[2017-11-19 07:31] LABS: ABSOLUTE BASOPHILS # (AUTO) 0.1 10^3/uL (0.0-0.2); ABSOLUTE EOSINOPHILS # (AUTO) 0.1 10^3/uL (0.0-0.6); ABSOLUTE LYMPHOCYTES (AUTO) 3.1 10^3/uL (0.5-4.7); ABSOLUTE MONOCYTES (AUTO) 0.6 10^3/uL (0.1-1.4); BASOPHILS % (AUTO) 0.5 % (0-2); EOSINOPHILS % (AUTO) 1.3 % (0-6); HEMATOCRIT 36.7 % (36.0-47.0); HEMOGLOBIN 11.6 g/dL (12.0-15.5); LYMPHOCYTES % (AUTO) 25.8 % (13-45); MEAN CORPUSCULAR HEMOGLOBIN 25.2 pg (27.0-33.4); MEAN CORPUSCULAR HGB CONC 31.6 g/dL (32.0-36.0); MEAN CORPUSCULAR VOLUME 80 fl (80-97); MONOCYTES % (AUTO) 4.9 % (3-13); PLATELET COUNT 213 10^3/uL (150-450); RED BLOOD COUNT 4.61 10^6/uL (3.72-5.28); RED CELL DISTRIBUTION WIDTH 16.6 % (11.5-14.0); SEGMENTED NEUTROPHILS % (AUTO) 67.5 % (42-78); TOTAL CELLS COUNTED % (AUTO) 100 %; WHITE BLOOD COUNT 11.8 10^3/uL (4.0-10.5)
[2017-11-19 07:46] LABS: ALANINE AMINOTRANSFERASE 65 U/L (9-52); ALBUMIN 3.8 g/dL (3.5-5.0); ALKALINE PHOSPHATASE 56 U/L (38-126); ANION GAP 11 (5-19); ASPARTATE AMINO TRANSFERASE 36 U/L (14-36); BILIRUBIN,DIRECT 0.4 mg/dL (0.0-0.4); BILIRUBIN,TOTAL 0.4 mg/dL (0.2-1.3); BLOOD UREA NITROGEN 26 mg/dL (7-20); CALCIUM 9.5 mg/dL (8.4-10.2); CARBON DIOXIDE 35 mmol/L (22-30); CHLORIDE 98 mmol/L (98-107); GLUCOSE 132 mg/dL (75-110); POTASSIUM 3.8 mmol/L (3.6-5.0); TOTAL PROTEIN 7.5 g/dL (6.3-8.2)
[2017-11-19] MEDS: ACETYLCYSTEINE 20% SOLN 800 MG/4 ML VIAL.NEB NEB SCH ×2 (08:37→20:13)
[2017-11-19] MEDS: LEVOTHYROXINE SODIUM 0.075 MG TABLET PO SCH (08:53)
--- NOTE | 2017-11-19 08:53 | RADIOLOGY REPORT (SQ) ---
EXAM DESCRIPTION: CHEST SINGLE VIEW COMPLETED DATE/TIME: 11/19/2017 8:11 am REASON FOR STUDY: pneumonia COMPARISON: None. EXAM PARAMETERS: NUMBER OF VIEWS: One view. TECHNIQUE: Single frontal radiographic view of the chest acquired. RADIATION DOSE: NA LIMITATIONS: None. FINDINGS: LUNGS AND PLEURA: Persistent density at left lung base which could represent discoid atele ctasis. MEDIASTINUM AND HILAR STRUCTURES: No masses. Contour normal. HEART AND VASCULAR STRUCTURES: Borderline cardiomegaly. BONES: No acute findings. HARDWARE: None in the chest. OTHER: Right central venous PICC line with tip overlying SVC. IMPRESSION: Borderline cardiomegaly. Discoid atelectasis left lung base. TECHNICAL DOCUMENTATION: JOB ID: [id number] [employer]- All Rights Reserved Reading location - IP/workstation name: [email or web address]
[2017-11-19] MEDS: GABAPENTIN 400 MG CAPSULE PO SCH ×2 (10:12→22:24)
[2017-11-19] MEDS: FUROSEMIDE INJ/PF 40 MG/4 ML SDV IV SCH (10:13)
[2017-11-19] MEDS: SERTRALINE HCL 50 MG TABLET PO SCH (10:13)
[2017-11-19] MEDS: METHYLPREDNISOLONE INJ 40 MG/1 ML SDV IV SCH ×2 (10:15→22:25)
[2017-11-19] MEDS: NORMAL SALINE 10 ML SDV (SCHEDULED) IV SCH ×2 (10:17→22:25)
[2017-11-19] MEDS: ENOXAPARIN SODIUM INJ 40 MG/0.4 ML DISP.SYRIN SUBCUT SCH (10:19)
[2017-11-19] MEDS: VANCOMYCIN HCL 1,000 MG in DEXTROSE 5%-WATER 250 ML IV SCH ×2 (10:20→22:24)
--- NOTE | 2017-11-19 16:32 | PDOC PROGRESS REPORT ---
Subjective Progress Note for:: 11/19/17 Subjective:: She was seen by the bedside Reason For Visit: ACUTE RESPIRATORY FAILURE WITH HYPERCAPNIA, Physical Exam Vital Signs: Temp Pulse Resp BP Pulse Ox 98.1 F 72 16 152/92 H 96 11/19/17 12:17 11/19/17 14:36 11/19/17 14:36 11/19/17 12:17 11/19/17 12:17 Intake & Output 11/18/17 11/19/17 11/20/17 06:59 06:59 06:59 Intake Total 968 1600 536 Output Total 3100 1800 1000 Balance -2132 -200 -464 Weight 172.4 kg 173.5 kg General appearance: PRESENT: no acute distress Eye exam: PRESENT: PERRLA Respiratory exam: PRESENT: decreased breath sounds Cardiovascular exam: PRESENT: +S1, +S2 GI/Abdominal exam: PRESENT: soft Neurological exam: PRESENT: alert Results Laboratory Results: 11/19/17 07:00 11/19/17 07:00 11/19/17 11/19/17 07:00 07:00 WBC 11.8 H RBC 4.61 Hgb 11.6 L Hct 36.7 MCV 80 MCH 25.2 L MCHC 31.6 L RDW 16.6 H Plt Count 213 Seg Neutrophils % 67.5 Lymphocytes % 25.8 Monocytes % 4.9 Eosinophils % 1.3 Basophils % 0.5 Absolute Neutrophils 8.0 Absolute Lymphocytes 3.1 Absolute Monocytes 0.6 Absolute Eosinophils 0.1 Absolute Basophils 0.1 Sodium 144.0 Potassium 3.8 Chloride 98 Carbon Dioxide 35 H Anion Gap 11 BUN 26 H Creatinine 0.79 Est GFR ( Amer) > 60 Est GFR (Non-Af Amer) > 60 Glucose 132 H Calcium 9.5 Total Bilirubin 0.4 AST 36 ALT 65 H Alkaline Phosphatase 56 Total Protein 7.5 Albumin 3.8 10/30/17 10/30/17 10/30/17 19:56 19:56 19:56 Creatine Kinase 75 CK-MB (CK-2) 2.28 Troponin I 0.447 NT-Pro-B Natriuret Pep 23744 H 10/31/17 10/31/17 10/31/17 01:42 01:42 07:16 Creatine Kinase 55 46 CK-MB (CK-2) 2.30 Troponin I 0.430 NT-Pro-B Natriuret Pep 07/16/18 07/17/18 07/30/18 07:16 05:01 17:55 Creatine Kinase CK-MB (CK-2) 2.18 Troponin I 0.399 0.340 NT-Pro-B Natriuret Pep 1800 H Impressions: PICC Line Insertion 10/31/17 00:00 IMPRESSION: SUCCESSFUL PLACEMENT OF A 5 FR DUAL LUMEN 46 CM PICC IN THE RIGHT BASILIC VEIN. Guidance Fluoroscopy 11/01/17 00:00 IMPRESSION: SUCCESSFUL PLACEMENT OF A 5 FR DUAL LUMEN 46 CM PICC IN THE RIGHT BASILIC VEIN. Interventional Vascular Procedure 11/01/17 00:00 IMPRESSION: SUCCESSFUL PLACEMENT OF A 5 FR DUAL LUMEN 46 CM PICC IN THE RIGHT BASILIC VEIN. Chest X-Ray 11/19/17 07:00 IMPRESSION: Borderline cardiomegaly. Discoid atelectasis left lung base. 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
[2017-11-19] MEDS: 1/2 NORMAL SALINE 1,000 ML IV PRN (17:17)
[2017-11-19] MEDS: ATORVASTATIN CALCIUM 10 MG TABLET PO SCH (22:25)
[2017-11-20] MEDS: SUCRALFATE SUSP 1 GM/10 ML UDCUP PO SCH ×3 (00:43→11:29)
[2017-11-20] MEDS: IPRATROPIUM/ALBUTEROL 0.5-2.5 MG/3 ML AMPUL NEB SCH ×4 (01:10→19:55)
[2017-11-20] MEDS: CEFEPIME 2 GM/D5W RTU 2 GM/50 ML RTUPB IV SCH ×2 (05:47→17:28)
[2017-11-20 06:31] LABS: ABSOLUTE BASOPHILS # (AUTO) 0.1 10^3/uL (0.0-0.2); ABSOLUTE EOSINOPHILS # (AUTO) 0.2 10^3/uL (0.0-0.6); ABSOLUTE LYMPHOCYTES (AUTO) 2.7 10^3/uL (0.5-4.7); ABSOLUTE MONOCYTES (AUTO) 0.5 10^3/uL (0.1-1.4); ABSOLUTE NEUT (AUTO) 7.1 10^3/uL (1.7-8.2); BASOPHILS % (AUTO) 0.6 % (0-2); HEMATOCRIT 36.3 % (36.0-47.0); HEMOGLOBIN 11.6 g/dL (12.0-15.5); LYMPHOCYTES % (AUTO) 25.6 % (13-45); MEAN CORPUSCULAR HEMOGLOBIN 25.4 pg (27.0-33.4); MEAN CORPUSCULAR HGB CONC 31.9 g/dL (32.0-36.0); MEAN CORPUSCULAR VOLUME 80 fl (80-97); MONOCYTES % (AUTO) 4.4 % (3-13); PLATELET COUNT 208 10^3/uL (150-450); RED BLOOD COUNT 4.55 10^6/uL (3.72-5.28); RED CELL DISTRIBUTION WIDTH 16.5 % (11.5-14.0); SEGMENTED NEUTROPHILS % (AUTO) 67.4 % (42-78); TOTAL CELLS COUNTED % (AUTO) 100 %; WHITE BLOOD COUNT 10.6 10^3/uL (4.0-10.5)
[2017-11-20 06:58] LABS: ALANINE AMINOTRANSFERASE 61 U/L (9-52); ALBUMIN 3.8 g/dL (3.5-5.0); ALKALINE PHOSPHATASE 55 U/L (38-126); ANION GAP 13 (5-19); ASPARTATE AMINO TRANSFERASE 32 U/L (14-36); BILIRUBIN,DIRECT 0.3 mg/dL (0.0-0.4); BILIRUBIN,TOTAL 0.4 mg/dL (0.2-1.3); BLOOD UREA NITROGEN 25 mg/dL (7-20); CALCIUM 9.5 mg/dL (8.4-10.2); CARBON DIOXIDE 34 mmol/L (22-30); CHLORIDE 97 mmol/L (98-107); GLUCOSE 139 mg/dL (75-110); POTASSIUM 3.6 mmol/L (3.6-5.0); SODIUM 144.1 mmol/L (137-145); TOTAL PROTEIN 7.2 g/dL (6.3-8.2)
[2017-11-20] MEDS: LEVOTHYROXINE SODIUM 0.075 MG TABLET PO SCH (08:11)
[2017-11-20] MEDS: INSULIN LISPRO 100 UNIT/ML 3 ML VIAL SUBCUT PRN (08:11)
--- NOTE | 2017-11-20 08:37 | RADIOLOGY REPORT (SQ) ---
EXAM DESCRIPTION: CHEST SINGLE VIEW COMPLETED DATE/TIME: 11/20/2017 8:24 am REASON FOR STUDY: pneumonia COMPARISON: 11/08/2017. 11/19/2017. EXAM PARAMETERS: NUMBER OF VIEWS: AP apical lordotic view. TECHNIQUE: Single frontal radiographic view of the chest acquired. RADIATION DOSE: NA LIMITATIONS: None. FINDINGS: LUNGS AND PLEURA: Persistent left basilar discoid atelectasis or scarring with left pleura l thickening. MEDIASTINUM AND HILAR STRUCTURES: No masses. Contour normal. HEART AND VASCULAR STRUCTURES: The heart is normal. Uncoiling thoracic aorta is noted. The pulmonar y vasculature is normal. BONES: Dorsal spondylosis is seen. HARDWARE: None in the chest. OTHER: No other significant finding. IMPRESSION: Left basilar discoid atelectasis or scarring with pleural thickening. No acute disease. TECHNICAL DOCUMENTATION: JOB ID: [id number] [employer]- All Rights Reserved Reading location - IP/workstation name: [email or web address]
[2017-11-20] MEDS: ACETYLCYSTEINE 20% SOLN 800 MG/4 ML VIAL.NEB NEB SCH ×2 (08:53→19:55)
[2017-11-20 10:58] LABS: VANCOMYCIN,TROUGH 21.6 ug/mL (5.0-20.0)
[2017-11-20] MEDS: METHYLPREDNISOLONE INJ 40 MG/1 ML SDV IV SCH ×2 (11:19→21:44)
[2017-11-20] MEDS: VANCOMYCIN HCL 1,000 MG in DEXTROSE 5%-WATER 250 ML IV SCH (11:21)
[2017-11-20] MEDS: ENOXAPARIN SODIUM INJ 40 MG/0.4 ML DISP.SYRIN SUBCUT SCH (11:24)
[2017-11-20] MEDS: FUROSEMIDE INJ/PF 40 MG/4 ML SDV IV SCH (11:25)
[2017-11-20] MEDS: NORMAL SALINE 10 ML SDV (SCHEDULED) IV SCH ×2 (11:27→21:45)
[2017-11-20] MEDS: SERTRALINE HCL 50 MG TABLET PO SCH (11:29)
[2017-11-20] MEDS: ERGOCALCIFEROL (VITAMIN D2) 50000 UNIT (1.25 MG) CAPSULE PO SCH (11:29)
[2017-11-20] MEDS: GABAPENTIN 400 MG CAPSULE PO SCH ×2 (11:29→21:45)
--- NOTE | 2017-11-20 13:58 | PDOC PROGRESS REPORT ---
Subjective Progress Note for:: 11/20/17 Subjective:: She was by the bedside, she continues to require noninvasive ventilation with BiPAP Reason For Visit: ACUTE RESPIRATORY FAILURE WITH HYPERCAPNIA, Physical Exam Vital Signs: Temp Pulse Resp BP Pulse Ox 97.4 F 85 16 134/85 H 97 11/20/17 11:44 11/20/17 11:44 11/20/17 11:44 11/20/17 11:44 11/20/17 11:44 Intake & Output 11/19/17 11/20/17 11/21/17 06:59 06:59 06:59 Intake Total 1600 1936 443 Output Total 1800 2775 325 Balance -200 -839 118 Weight 173.5 kg 176.6 kg General appearance: PRESENT: no acute distress Eye exam: PRESENT: PERRLA Respiratory exam: PRESENT: clear to auscultation kurt Cardiovascular exam: PRESENT: +S1, +S2 GI/Abdominal exam: PRESENT: soft Neurological exam: PRESENT: alert Results Laboratory Results: 11/20/17 05:54 11/20/17 10:15 11/20/17 11/20/17 11/20/17 05:54 05:54 10:15 WBC 10.6 H RBC 4.55 Hgb 11.6 L Hct 36.3 MCV 80 MCH 25.4 L MCHC 31.9 L RDW 16.5 H Plt Count 208 Seg Neutrophils % 67.4 Lymphocytes % 25.6 Monocytes % 4.4 Eosinophils % 2.0 Basophils % 0.6 Absolute Neutrophils 7.1 Absolute Lymphocytes 2.7 Absolute Monocytes 0.5 Absolute Eosinophils 0.2 Absolute Basophils 0.1 Sodium 144.1 Potassium 3.6 Chloride 97 L Carbon Dioxide 34 H Anion Gap 13 BUN 25 H Creatinine 0.79 0.78 Est GFR ( Amer) > 60 > 60 Est GFR (Non-Af Amer) > 60 > 60 Glucose 139 H Calcium 9.5 Total Bilirubin 0.4 AST 32 ALT 61 H Alkaline Phosphatase 55 Total Protein 7.2 Albumin 3.8 10/30/17 10/30/17 10/30/17 19:56 19:56 19:56 Creatine Kinase 75 CK-MB (CK-2) 2.28 Troponin I 0.447 NT-Pro-B Natriuret Pep 99659 H 10/31/17 10/31/17 10/31/17 01:42 01:42 07:16 Creatine Kinase 55 46 CK-MB (CK-2) 2.30 Troponin I 0.430 NT-Pro-B Natriuret Pep 10/31/17 11/01/1718 07:16 05:01 17:55 Creatine Kinase CK-MB (CK-2) 2.18 Troponin I 0.399 0.340 NT-Pro-B Natriuret Pep 1800 H Impressions: PICC Line Insertion 10/31/17 00:00 IMPRESSION: SUCCESSFUL PLACEMENT OF A 5 FR DUAL LUMEN 46 CM PICC IN THE RIGHT BASILIC VEIN. Guidance Fluoroscopy 11/01/17 00:00 IMPRESSION: SUCCESSFUL PLACEMENT OF A 5 FR DUAL LUMEN 46 CM PICC IN THE RIGHT BASILIC VEIN. Interventional Vascular Procedure 11/01/17 00:00 IMPRESSION: SUCCESSFUL PLACEMENT OF A 5 FR DUAL LUMEN 46 CM PICC IN THE RIGHT BASILIC VEIN. Chest X-Ray 11/20/17 07:00 IMPRESSION: Left basilar discoid atelectasis or scarring with pleural thickening. No acute disease. 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
[2017-11-20 15:40] LABS: ARTERIAL BLOOD H2CO3 1.65 mmol/L (1.05-1.35); ARTERIAL BLOOD HCO3 33.3 mmol/L (20-26); ARTERIAL BLOOD O2 SATURATION 94.2 % (94-98); ARTERIAL BLOOD PCO2 54.7 mmHg (35-45)
[2017-11-20 15:42] LABS: ARTERIAL BLOOD FIO2 30%
[2017-11-20] MEDS: ATORVASTATIN CALCIUM 10 MG TABLET PO SCH (21:44)
[2017-11-20] MEDS: VANCOMYCIN HCL 750 MG in DEXTROSE 5%-WATER 250 ML IV SCH (21:47)
[2017-11-20] MEDS: 1/2 NORMAL SALINE 1,000 ML IV PRN (21:53)
[2017-11-21] MEDS: IPRATROPIUM/ALBUTEROL 0.5-2.5 MG/3 ML AMPUL NEB SCH ×4 (01:29→20:39)
[2017-11-21] MEDS: CEFEPIME 2 GM/D5W RTU 2 GM/50 ML RTUPB IV SCH (06:28)
[2017-11-21 07:00] LABS: ABSOLUTE EOSINOPHILS # (AUTO) 0.1 10^3/uL (0.0-0.6); ABSOLUTE LYMPHOCYTES (AUTO) 2.3 10^3/uL (0.5-4.7); ABSOLUTE MONOCYTES (AUTO) 0.5 10^3/uL (0.1-1.4); BASOPHILS % (AUTO) 0.5 % (0-2); EOSINOPHILS % (AUTO) 1.3 % (0-6); HEMATOCRIT 36.3 % (36.0-47.0); HEMOGLOBIN 11.7 g/dL (12.0-15.5); LYMPHOCYTES % (AUTO) 26.1 % (13-45); MEAN CORPUSCULAR HEMOGLOBIN 25.5 pg (27.0-33.4); MEAN CORPUSCULAR HGB CONC 32.2 g/dL (32.0-36.0); MEAN CORPUSCULAR VOLUME 79 fl (80-97); MONOCYTES % (AUTO) 5.6 % (3-13); PLATELET COUNT 191 10^3/uL (150-450); RED BLOOD COUNT 4.58 10^6/uL (3.72-5.28); RED CELL DISTRIBUTION WIDTH 16.6 % (11.5-14.0); SEGMENTED NEUTROPHILS % (AUTO) 66.5 % (42-78); TOTAL CELLS COUNTED % (AUTO) 100 %
[2017-11-21 07:16] LABS: ALANINE AMINOTRANSFERASE 56 U/L (9-52); ALBUMIN 3.7 g/dL (3.5-5.0); ALKALINE PHOSPHATASE 53 U/L (38-126); ANION GAP 13 (5-19); ASPARTATE AMINO TRANSFERASE 28 U/L (14-36); BILIRUBIN,DIRECT 0.4 mg/dL (0.0-0.4); BILIRUBIN,TOTAL 0.4 mg/dL (0.2-1.3); BLOOD UREA NITROGEN 22 mg/dL (7-20); CALCIUM 9.5 mg/dL (8.4-10.2); CARBON DIOXIDE 32 mmol/L (22-30); CHLORIDE 98 mmol/L (98-107); GLUCOSE 138 mg/dL (75-110); POTASSIUM 3.5 mmol/L (3.6-5.0); SODIUM 143.4 mmol/L (137-145); TOTAL PROTEIN 6.9 g/dL (6.3-8.2)
--- NOTE | 2017-11-21 08:00 | RADIOLOGY REPORT (SQ) ---
EXAM DESCRIPTION: CHEST SINGLE VIEW COMPLETED DATE/TIME: 11/21/2017 7:44 am REASON FOR STUDY: pneumonia COMPARISON: Chest films 11/11/2017, 11/18/2017, 11/19/2017, 11/20/2017 EXAM PARAMETERS: NUMBER OF VIEWS: One view. TECHNIQUE: Single frontal radiographic view of the chest acquired. RADIATION DOSE: NA LIMITATIONS: None. FINDINGS: LUNGS AND PLEURA: Lingular consolidation is present, atelectasis versus pneumonia, with lo ss of the discrete left heart border. There is pulmonary vascular congestion without alveolar edema. No pneumothorax. No gross pleural ef fusion. MEDIASTINUM AND HILAR STRUCTURES: No masses. Contour normal. HEART AND VASCULAR STRUCTURES: Stable cardiomegaly BONES: No acute findings. HARDWARE: Right PICC line tip superior vena cava OTHER: No other significant finding. IMPRESSION: Left upper lobe pneumonia along the left heart border, more prominent than on previous f ilms TECHNICAL DOCUMENTATION: JOB ID: [id number] [employer]- All Rights Reserved Reading location - IP/workstation name: [facility] THE [facility]
[2017-11-21] MEDS: ACETYLCYSTEINE 20% SOLN 800 MG/4 ML VIAL.NEB NEB SCH ×2 (08:03→20:38)
[2017-11-21] MEDS: LEVOTHYROXINE SODIUM 0.075 MG TABLET PO SCH (08:39)
[2017-11-21] MEDS: GABAPENTIN 400 MG CAPSULE PO SCH ×2 (09:18→22:50)
[2017-11-21] MEDS: ENOXAPARIN SODIUM INJ 40 MG/0.4 ML DISP.SYRIN SUBCUT SCH (09:19)
[2017-11-21] MEDS: SERTRALINE HCL 50 MG TABLET PO SCH (09:21)
[2017-11-21] MEDS: METHYLPREDNISOLONE INJ 40 MG/1 ML SDV IV SCH ×2 (09:22→23:07)
[2017-11-21] MEDS: FUROSEMIDE INJ/PF 40 MG/4 ML SDV IV SCH (09:22)
[2017-11-21] MEDS: NORMAL SALINE 10 ML SDV (SCHEDULED) IV SCH ×2 (09:25→23:05)
[2017-11-21] MEDS: VANCOMYCIN HCL 750 MG in DEXTROSE 5%-WATER 250 ML IV SCH ×2 (09:27→23:03)
[2017-11-21] MEDS: INSULIN LISPRO 100 UNIT/ML 3 ML VIAL SUBCUT PRN (12:37)
[2017-11-21] MEDS: MORPHINE SULFATE 10 MG/ML INJ IV PRN (13:21)
--- NOTE | 2017-11-21 15:43 | PDOC CONSULTATION ---
Consultation Consult Date: 11/21/17 Attending physician:: AYALA FARIAS Consult reason:: For chronic ulceration of the left lower extremity. History of Present Illness Admission Date/PCP: 10/30/17 19:20 AYALA FARIAS MD History of Present Illness: SERINA LEE is a 71 year old female she was admitted for a number of problems including respiratory compromise. 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 Very recalcitrant. Past Medical History Cardiac Medical History: Reports: Congestive Heart Failure, Hyperlipidema, Hypertension, Peripheral Vascular Disease Denies: DVT, Myocardial Infarction, Pulmonary Embolism Pulmonary Medical History: Reports: Sleep Apnea Denies: Asthma, Chronic Obstructive Pulmonary Disease (COPD) Neurological Medical History: Denies: Seizures Endocrine Medical History: Reports: Diabetes Mellitus Type 2 Denies: Diabetes Mellitus Type 1, Hyperthyroidism, Hypothyroidism GI Medical History: Reports: Gastroesophageal Reflux Disease - Distant history of same; no recent symptoms. Denies: Cirrhosis, Hepatitis Musculoskeltal Medical History: Reports: Arthritis Psychiatric Medical History: Reports: Depression - Denies suicidal or homicidal ideation. 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 Denies: Clostridium Difficile Past Surgical History Past Surgical History: Reports: Orthopedic Surgery, Other - Wound debridement Social History Smoking Status: Never Smoker Frequency of Alcohol Use: None Hx Recreational Drug Use: No Drugs: None Hx Prescription Drug Abuse: No - Advance Directive Resuscitation Status: Full Code Family History Family History: CAD, Malignancy Parental Family History Reviewed: No Children Family History Reviewed: No Sibling(s) Family History Reviewed.: No Medication/Allergy Home Medications: Atorvastatin Calcium [Lipitor 10 mg Tablet] 10 mg PO QHS 10/31/17 Ergocalciferol (Vitamin D2) [Drisdol 50,000 unit (1.25MG) Capsule] 50,000 unit PO SEGURA@1000 10/31/17 Gabapentin [Neurontin 400 mg Capsule] 800 mg PO BID 10/31/17 Glimepiride [Amaryl] 2 mg PO QAM 10/31/17 Levothyroxine Sodium [Synthroid 0.075 mg Tablet] 0.075 mg PO Q6AM 10/31/17 Lisinopril/Hydrochlorothiazide [Zestoretic 20-25 mg Tablet] 1 tab PO DAILY 10/31 Sertraline HCl [Zoloft] 100 mg PO DAILY 10/31/17 Allergies/Adverse Reactions: adhesive [Adhesive] Allergy (Verified 01/19/17 13:11) No Known Drug Allergies Allergy (Verified 01/19/17 13:11) Physical Exam Vital Signs: Temp Pulse Resp BP Pulse Ox 99.5 F 76 22 H 121/63 99 11/21/17 15:24 11/21/17 15:24 11/21/17 15:24 11/21/17 15:24 11/21/17 15:24 Intake & Output 11/20/17 11/21/17 11/22/17 06:59 06:59 06:59 Intake Total 1936 1743 537 Output Total 2775 925 200 Balance -839 818 337 Weight 176.6 kg 139.2 kg Additional comments: Constitutional: Well-developed well-nourished lady, morbidly obese body habitus. No apparent acute distress. Eyes: Mucous membranes pink and moist, pupils equal and reactive to light. Conjunctiva normal. Cornea normal. Wears spectacles. ENT: Hearing grossly normal. External pinna normal to inspection. Teeth missing t. Tongue normal to inspection. Cardiac: Heart sounds normal. Respiratory normal respiratory effort. Skin: Hyperpigmented, thickened fragile skin in both legs, geographic ulcer on the left about 12 x 8 cm laterally. Granulating with no necrotic tissue at this time. Psychiatric: Judgment, memory, insight seem normal. Mood is pleasant and appropriate. Extremities: Upper extremities show normal range of movement. Pulses present noted to the radial arteries. Capillary refill normal. No cyanosis noted. No muscle wasting noted. Lower extremities show reduced range of movement. Pulses present noted to the dorsalis pedis artery. Capillary refill normal. No cyanosis noted. No muscle wasting noted.Hyperpigmented, thickened fragile skin in both legs, geographic ulcer on the left about 12 x 8 cm laterally. Granulating with no necrotic tissue at this time. Results Laboratory Results: 11/21/17 06:00 11/21/17 06:00 11/20/17 11/21/17 11/21/17 15:25 06:00 06:00 WBC 9.0 RBC 4.58 Hgb 11.7 L Hct 36.3 MCV 79 L MCH 25.5 L MCHC 32.2 RDW 16.6 H Plt Count 191 Seg Neutrophils % 66.5 Lymphocytes % 26.1 Monocytes % 5.6 Eosinophils % 1.3 Basophils % 0.5 Absolute Neutrophils 6.0 Absolute Lymphocytes 2.3 Absolute Monocytes 0.5 Absolute Eosinophils 0.1 Absolute Basophils 0.0 Carbonic Acid 1.65 H HCO3/H2CO3 Ratio 20:1 ABG pH 7.40 ABG pCO2 54.7 H ABG pO2 72.0 L ABG HCO3 33.3 H ABG O2 Saturation 94.2 ABG Base Excess 7.0 FiO2 30% Sodium 143.4 Potassium 3.5 L Chloride 98 Carbon Dioxide 32 H Anion Gap 13 BUN 22 H Creatinine 0.79 Est GFR ( Amer) > 60 Est GFR (Non-Af Amer) > 60 Glucose 138 H Calcium 9.5 Total Bilirubin 0.4 AST 28 ALT 56 H Alkaline Phosphatase 53 Total Protein 6.9 Albumin 3.7 10/30/17 10/30/17 10/30/17 19:56 19:56 19:56 Creatine Kinase 75 CK-MB (CK-2) 2.28 Troponin I 0.447 NT-Pro-B Natriuret Pep 41822 H 10/31/17 10/31/17 10/31/17 01:42 01:42 07:16 Creatine Kinase 55 46 CK-MB (CK-2) 2.30 Troponin I 0.430 NT-Pro-B Natriuret Pep 10/31/17 11/01/17 11/14/17 07:16 05:01 17:55 Creatine Kinase CK-MB (CK-2) 2.18 Troponin I 0.399 0.340 NT-Pro-B Natriuret Pep 1800 H Impressions: PICC Line Insertion 10/31/17 00:00 IMPRESSION: SUCCESSFUL PLACEMENT OF A 5 FR DUAL LUMEN 46 CM PICC IN THE RIGHT BASILIC VEIN. Guidance Fluoroscopy 11/01/17 00:00 IMPRESSION: SUCCESSFUL PLACEMENT OF A 5 FR DUAL LUMEN 46 CM PICC IN THE RIGHT BASILIC VEIN. Interventional Vascular Procedure 11/01/17 00:00 IMPRESSION: SUCCESSFUL PLACEMENT OF A 5 FR DUAL LUMEN 46 CM PICC IN THE RIGHT BASILIC VEIN. Chest X-Ray 11/21/17 07:00 IMPRESSION: Left upper lobe pneumonia along the left heart border, more prominent than on previous films Assessment & Plan - Diagnosis (1) Acute diastolic (congestive) heart failure Is this a current diagnosis for this admission?: Yes (2) Morbid obesity Is this a current diagnosis for this admission?: Yes (3) Diabetes Qualifiers: Diabetes mellitus type: type 2 Diabetes mellitus mcc insulin use: with terminal worker use Diabetes mellitus complication status: with unspecified complications Qualified Code(s): E11.8 - Type 2 diabetes mellitus with unspecified complications - Plan Summary Plan Summary: This patient is well known to me from previous admissions to the wound clinic. Her ulcers have been very difficult to heal. The actually looked much better in hospital, undoubtedly because of leg elevation enforcing and IV antibiotic. At this point I feel that the Unna boots changed twice a weekly will be optimal therapy. I look forward to see her in office or in the wound clinic once discharged.
[2017-11-21] MEDS ORDERED: OXYCODONE HCL IR 5 MG TABLET PO PRN (16:42)
--- NOTE | 2017-11-21 22:09 | PDOC PROGRESS REPORT ---
Subjective Progress Note for:: 11/21/17 Subjective:: She was seen today by his surgeon regarding the leg ulcer, Unaboot twice a week recommended, Reason For Visit: ACUTE RESPIRATORY FAILURE WITH HYPERCAPNIA, Physical Exam Vital Signs: Temp Pulse Resp BP Pulse Ox 98.2 F 78 16 131/54 H 97 11/21/17 20:03 11/21/17 20:39 11/21/17 20:39 11/21/17 20:03 11/21/17 20:39 Intake & Output 11/20/17 11/21/17 11/22/17 06:59 06:59 06:59 Intake Total 1936 1743 774 Output Total 2775 925 200 Balance -839 818 574 Weight 176.6 kg 139.2 kg General appearance: PRESENT: severe distress Eye exam: PRESENT: PERRLA Respiratory exam: PRESENT: wheezes Cardiovascular exam: PRESENT: +S1, +S2 GI/Abdominal exam: PRESENT: soft Neurological exam: PRESENT: alert Results Laboratory Results: 11/21/17 06:00 11/21/17 06:00 11/21/17 11/21/17 06:00 06:00 WBC 9.0 RBC 4.58 Hgb 11.7 L Hct 36.3 MCV 79 L MCH 25.5 L MCHC 32.2 RDW 16.6 H Plt Count 191 Seg Neutrophils % 66.5 Lymphocytes % 26.1 Monocytes % 5.6 Eosinophils % 1.3 Basophils % 0.5 Absolute Neutrophils 6.0 Absolute Lymphocytes 2.3 Absolute Monocytes 0.5 Absolute Eosinophils 0.1 Absolute Basophils 0.0 Sodium 143.4 Potassium 3.5 L Chloride 98 Carbon Dioxide 32 H Anion Gap 13 BUN 22 H Creatinine 0.79 Est GFR ( Amer) > 60 Est GFR (Non-Af Amer) > 60 Glucose 138 H Calcium 9.5 Total Bilirubin 0.4 AST 28 ALT 56 H Alkaline Phosphatase 53 Total Protein 6.9 Albumin 3.7 10/30/17 10/30/17 10/30/17 19:56 19:56 19:56 Creatine Kinase 75 CK-MB (CK-2) 2.28 Troponin I 0.447 NT-Pro-B Natriuret Pep 39511 H 10/31/17 10/31/17 10/31/17 01:42 01:42 07:16 Creatine Kinase 55 46 CK-MB (CK-2) 2.30 Troponin I 0.430 NT-Pro-B Natriuret Pep 10/31/17 11/01/17 11/14/17 07:16 05:01 17:55 Creatine Kinase CK-MB (CK-2) 2.18 Troponin I 0.399 0.340 NT-Pro-B Natriuret Pep 1800 H Impressions: PICC Line Insertion 10/31/17 00:00 IMPRESSION: SUCCESSFUL PLACEMENT OF A 5 FR DUAL LUMEN 46 CM PICC IN THE RIGHT BASILIC VEIN. Guidance Fluoroscopy 11/01/17 00:00 IMPRESSION: SUCCESSFUL PLACEMENT OF A 5 FR DUAL LUMEN 46 CM PICC IN THE RIGHT BASILIC VEIN. Interventional Vascular Procedure 11/01/17 00:00 IMPRESSION: SUCCESSFUL PLACEMENT OF A 5 FR DUAL LUMEN 46 CM PICC IN THE RIGHT BASILIC VEIN. Chest X-Ray 11/21/17 07:00 IMPRESSION: Left upper lobe pneumonia along the left heart border, more prominent than on previous films Assessment & Plan - Diagnosis (1) Acute respiratory failure with hypoxia and hypercapnia Is this a current diagnosis for this admission?: Yes (2) Acute diastolic (congestive) heart failure Is this a current diagnosis for this admission?: Yes (3) Morbid obesity with BMI of 70 and over, adult Is this a current diagnosis for this admission?: Yes (4) Obesity hypoventilation syndrome Is this a current diagnosis for this admission?: Yes (5) Elevated troponin Is this a current diagnosis for this admission?: Yes (6) Chronic venous hypertension (idiopathic) with ulcer and inflammation of bilateral lower extremity Is this a current diagnosis for this admission?: Yes (7) Right middle lobe pneumonia Qualifiers: Pneumonia type: due to unspecified organism Qualified Code(s): J18.1 - Lobar pneumonia, unspecified organism Is this a current diagnosis for this admission?: Yes
[2017-11-21] MEDS: ATORVASTATIN CALCIUM 10 MG TABLET PO SCH (23:04)
[2017-11-22] MEDS: INSULIN LISPRO 100 UNIT/ML 3 ML VIAL SUBCUT PRN ×2 (00:21→08:10)
[2017-11-22] MEDS: 1/2 NORMAL SALINE 1,000 ML IV PRN ×2 (01:15→23:08)
[2017-11-22] MEDS: IPRATROPIUM/ALBUTEROL 0.5-2.5 MG/3 ML AMPUL NEB SCH ×4 (02:51→19:55)
[2017-11-22 06:51] LABS: ABSOLUTE EOSINOPHILS # (AUTO) 0.1 10^3/uL (0.0-0.6); ABSOLUTE LYMPHOCYTES (AUTO) 1.7 10^3/uL (0.5-4.7); ABSOLUTE MONOCYTES (AUTO) 0.4 10^3/uL (0.1-1.4); ABSOLUTE NEUT (AUTO) 6.2 10^3/uL (1.7-8.2); BASOPHILS % (AUTO) 0.5 % (0-2); EOSINOPHILS % (AUTO) 0.6 % (0-6); HEMATOCRIT 36.1 % (36.0-47.0); HEMOGLOBIN 11.6 g/dL (12.0-15.5); LYMPHOCYTES % (AUTO) 20.5 % (13-45); MEAN CORPUSCULAR HEMOGLOBIN 25.5 pg (27.0-33.4); MEAN CORPUSCULAR VOLUME 79 fl (80-97); MONOCYTES % (AUTO) 4.3 % (3-13); PLATELET COUNT 193 10^3/uL (150-450); RED BLOOD COUNT 4.54 10^6/uL (3.72-5.28); SEGMENTED NEUTROPHILS % (AUTO) 74.1 % (42-78); TOTAL CELLS COUNTED % (AUTO) 100 %; WHITE BLOOD COUNT 8.4 10^3/uL (4.0-10.5)
[2017-11-22 07:04] LABS: ALANINE AMINOTRANSFERASE 58 U/L (9-52); ALBUMIN 3.8 g/dL (3.5-5.0); ALKALINE PHOSPHATASE 55 U/L (38-126); ANION GAP 13 (5-19); ASPARTATE AMINO TRANSFERASE 26 U/L (14-36); BILIRUBIN,DIRECT 0.3 mg/dL (0.0-0.4); BILIRUBIN,TOTAL 0.4 mg/dL (0.2-1.3); BLOOD UREA NITROGEN 25 mg/dL (7-20); CALCIUM 9.4 mg/dL (8.4-10.2); CARBON DIOXIDE 32 mmol/L (22-30); CHLORIDE 98 mmol/L (98-107); GLUCOSE 157 mg/dL (75-110); POTASSIUM 3.6 mmol/L (3.6-5.0); SODIUM 143.3 mmol/L (137-145); TOTAL PROTEIN 7.1 g/dL (6.3-8.2)
[2017-11-22] MEDS: ACETYLCYSTEINE 20% SOLN 800 MG/4 ML VIAL.NEB NEB SCH ×2 (07:46→19:54)
[2017-11-22] MEDS: LEVOTHYROXINE SODIUM 0.075 MG TABLET PO SCH (08:10)
--- NOTE | 2017-11-22 08:31 | RADIOLOGY REPORT (SQ) ---
EXAM DESCRIPTION: CHEST SINGLE VIEW COMPLETED DATE/TIME: 11/22/2017 7:47 am REASON FOR STUDY: pneumonia COMPARISON: 11/21/2017 NUMBER OF VIEWS: One view. TECHNIQUE: Single frontal radiographic image of the chest acquired. LIMITATIONS: Body habitus. FINDINGS: LUNGS AND PLEURA: Diffuse interstitial pattern with more confluent airspace disease in the left lower lobe. Improved aeration in the left upper lobe. MEDIASTINUM AND HILAR STRUCTURES: Stable heart size and mediastinal structures. HEART AND VASCULAR STRUCTURES: Stable appearance. SUPPORT DEVICES: Appropriate location without change. BONES: No acute findings. OTHER: No other significant finding. IMPRESSION: Improving pneumonia. TECHNICAL DOCUMENTATION: JOB ID: [id number] [employer]- All Rights Reserved Reading location - IP/workstation name: [email or web address]
[2017-11-22] MEDS: METHYLPREDNISOLONE INJ 40 MG/1 ML SDV IV SCH ×2 (09:44→22:06)
[2017-11-22] MEDS: FUROSEMIDE INJ/PF 40 MG/4 ML SDV IV SCH (09:44)
[2017-11-22] MEDS: MORPHINE SULFATE 10 MG/ML INJ IV PRN (09:46)
[2017-11-22] MEDS: SERTRALINE HCL 50 MG TABLET PO SCH (09:47)
[2017-11-22] MEDS: ENOXAPARIN SODIUM INJ 40 MG/0.4 ML DISP.SYRIN SUBCUT SCH (09:48)
[2017-11-22] MEDS: GABAPENTIN 400 MG CAPSULE PO SCH ×2 (09:48→22:06)
[2017-11-22] MEDS: NORMAL SALINE 10 ML SDV (SCHEDULED) IV SCH ×2 (09:52→22:07)
[2017-11-22] MEDS: VANCOMYCIN HCL 750 MG in DEXTROSE 5%-WATER 250 ML IV SCH (09:54)
[2017-11-22 10:53] LABS: VANCOMYCIN,TROUGH 22.4 ug/mL (5.0-20.0)
--- NOTE | 2017-11-22 18:31 | PDOC PROGRESS REPORT ---
Subjective Progress Note for:: 11/12/17 Subjective:: Intubated Reason For Visit: ACUTE RESPIRATORY FAILURE WITH HYPERCAPNIA, Physical Exam Vital Signs: Temp Pulse Resp BP Pulse Ox 98.2 F 57 L 18 151/68 H 95 11/12/17 08:00 11/12/17 08:02 11/12/17 08:00 11/12/17 07:13 11/12/17 08:00 Intake & Output 11/11/17 11/12/17 11/13/17 06:59 06:59 06:59 Intake Total 6156 7487 Output Total 3325 3010 235 Balance 2831 4477 -235 Weight 180.6 kg 179 kg General appearance: PRESENT: no acute distress, disheveled, morbidly obese Head exam: PRESENT: atraumatic, normocephalic Eye exam: PRESENT: conjunctiva pale. ABSENT: nystagmus, periorbital swelling, scleral icterus Mouth exam: PRESENT: dry mucosa, neck supple, tongue midline, other - ET tube in place Neck exam: ABSENT: carotid bruit, JVD, lymphadenopathy, thyromegaly, tracheal deviation, tracheostomy Respiratory exam: PRESENT: decreased breath sounds, prolonged expiratory phas, rales, rhonchi, unlabored Cardiovascular exam: PRESENT: RRR, +S1, +S2 Pulses: PRESENT: normal radial pulses GI/Abdominal exam: PRESENT: normal bowel sounds, soft Gentrourinary exam: PRESENT: indwelling catheter Extremities exam: ABSENT: calf tenderness, clubbing, joint swelling Musculoskeletal exam: ABSENT: deformity, dislocation Neurological exam: PRESENT: awake Psychiatric exam: PRESENT: flat affect Skin exam: PRESENT: dry, warm Results Laboratory Results: 11/12/17 06:20 11/12/17 06:20 11/12/17 11/12/17 11/12/17 06:20 06:20 06:37 WBC 10.7 H RBC 4.28 Hgb 10.8 L Hct 33.7 L MCV 79 L MCH 25.2 L MCHC 32.1 RDW 16.8 H Plt Count 258 Seg Neutrophils % 67.2 Lymphocytes % 24.8 Monocytes % 6.0 Eosinophils % 1.5 Basophils % 0.5 Absolute Neutrophils 7.2 Absolute Lymphocytes 2.6 Absolute Monocytes 0.6 Absolute Eosinophils 0.2 Absolute Basophils 0.1 Carbonic Acid Cancelled HCO3/H2CO3 Ratio Cancelled ABG pH Cancelled ABG pCO2 Cancelled ABG pO2 Cancelled ABG HCO3 Cancelled ABG O2 Saturation Cancelled ABG Base Excess Cancelled FiO2 Cancelled Sodium 142.6 Potassium 3.5 L Chloride 99 Carbon Dioxide 31 H Anion Gap 13 BUN 21 H Creatinine 0.75 Est GFR ( Amer) > 60 Est GFR (Non-Af Amer) > 60 Glucose 129 H Calcium 8.9 Magnesium 1.8 Total Bilirubin 0.4 AST 37 H ALT 62 H Alkaline Phosphatase 61 Total Protein 6.7 Albumin 3.4 L Triglycerides 190 H 11/12/17 07:30 WBC RBC Hgb Hct MCV MCH MCHC RDW Plt Count Seg Neutrophils % Lymphocytes % Monocytes % Eosinophils % Basophils % Absolute Neutrophils Absolute Lymphocytes Absolute Monocytes Absolute Eosinophils Absolute Basophils Carbonic Acid 1.32 HCO3/H2CO3 Ratio 23:1 ABG pH 7.46 H ABG pCO2 43.9 ABG pO2 76.7 L ABG HCO3 30.7 H ABG O2 Saturation 95.9 ABG Base Excess 6.3 FiO2 28% Sodium Potassium Chloride Carbon Dioxide Anion Gap BUN Creatinine Est GFR ( Amer) Est GFR (Non-Af Amer) Glucose Calcium Magnesium Total Bilirubin AST ALT Alkaline Phosphatase Total Protein Albumin Triglycerides 10/30/17 10/30/17 10/30/17 19:56 19:56 19:56 Creatine Kinase 75 CK-MB (CK-2) 2.28 Troponin I 0.447 NT-Pro-B Natriuret Pep 12515 H 10/31/17 10/31/17 10/31/17 01:42 01:42 07:16 Creatine Kinase 55 46 CK-MB (CK-2) 2.30 Troponin I 0.430 NT-Pro-B Natriuret Pep 10/31/17 11/01/17 07:16 05:01 Creatine Kinase CK-MB (CK-2) 2.18 Troponin I 0.399 0.340 NT-Pro-B Natriuret Pep Impressions: PICC Line Insertion 10/31/17 00:00 IMPRESSION: SUCCESSFUL PLACEMENT OF A 5 FR DUAL LUMEN 46 CM PICC IN THE RIGHT BASILIC VEIN. Guidance Fluoroscopy 11/01/17 00:00 IMPRESSION: SUCCESSFUL PLACEMENT OF A 5 FR DUAL LUMEN 46 CM PICC IN THE RIGHT BASILIC VEIN. Interventional Vascular Procedure 11/01/17 00:00 IMPRESSION: SUCCESSFUL PLACEMENT OF A 5 FR DUAL LUMEN 46 CM PICC IN THE RIGHT BASILIC VEIN. Chest X-Ray 11/12/17 07:00 IMPRESSION: Limited study. Low volumes. Worsening aeration left base. Appropriate lines and tubes. Assessment & Plan - Diagnosis (1) Acute respiratory failure with hypoxia and hypercapnia Is this a current diagnosis for this admission?: Yes Plan: Stable at this time (2) Morbid obesity with BMI of 70 and over, adult Is this a current diagnosis for this admission?: Yes (3) Obesity hypoventilation syndrome Is this a current diagnosis for this admission?: Yes Plan: increased pCO2 (4) MRSA pneumonia Qualifiers: Laterality: unspecified laterality Lung location: unspecified part of lung Qualified Code(s): J15.212 - Pneumonia due to Methicillin resistant Staphylococcus aureus Is this a current diagnosis for this admission?: Yes Plan: 11/04/17 15:15 Gram Stain - Final Tracheal Aspirate Sputum Culture - Final Mrsa (Meth Resis Staph Aureus) Normal Nancy Absent 10/30/17 23:40 Urine Culture - Final Catheterized Urine Escherichia Coli 10/30/17 16:05 Blood Culture - Final Blood Staphylococcus Epidermidis 10/07/17 10:10 Gram Stain - Final Leg - Left Wound Culture - Final Providencia Stuartii Pseudomonas Aeruginosa Enterococcus Faecalis(Group D) No Anaerobic Organisms 09/09/17 10:00 Gram Stain - Final Leg - Left Wound Culture - Final Enterococcus Faecalis(Group D) Pseudomonas Aeruginosa Peptostreptococcus Species 08/12/17 10:30 Gram Stain - Final Leg - Left Wound Culture - Final Pseudomonas Aeruginosa Enterococcus Faecalis(Group D) Mrsa (Meth Resis Staph Aureus) No Anaerobic Organisms (5) Hypertension Qualifiers: Hypertension type: essential hypertension Qualified Code(s): I10 - Essential (primary) hypertension Is this a current diagnosis for this admission?: Yes - Time Total Critical Time (Minutes): 40
--- NOTE | 2017-11-22 18:32 | Operative Report ---
Operative Report DATE OF SURGERY: 11/12/17 Operative Report: Fiberoptic bronchoscopy with bronchoalveolar lavage indication left lower lobe atelectasis patient intubated and sedated using a T size Olympus scope tracheobronchial tree was explored there is no splaying of the marcia there is no abnormalities of the distal trachea or right mainstem bronchus right bronchus intermedius right lower lobe right middle lobe and right upper lobe with an density left upper lobe lingula there was copious secretions in the left lower lobe he was lavaged repeatedly PREOPERATIVE DIAGNOSIS: LL lobe atelectasis POSTOPERATIVE DIAGNOSIS: same OPERATION: FOB with BAL SURGEON: LUMA JOY ANESTHESIA: GA TISSUE REMOVED OR ALTERED: Bronchoalveolar lavage fluid from the left lower lobe COMPLICATIONS: none
--- NOTE | 2017-11-22 18:36 | PDOC PROGRESS REPORT ---
Subjective Progress Note for:: 11/13/17 Subjective:: Intubated Reason For Visit: ACUTE RESPIRATORY FAILURE WITH HYPERCAPNIA, Physical Exam Vital Signs: Temp Pulse Resp BP Pulse Ox 98.8 F 75 16 136/70 H 96 11/13/17 10:45 11/13/17 08:28 11/13/17 10:45 11/13/17 10:27 11/13/17 11:06 Intake & Output 11/12/17 11/13/17 11/14/17 06:59 06:59 06:59 Intake Total 7837 4391 Output Total 3010 4520 800 Balance 4827 -129 -800 Weight 179 kg 171.1 kg General appearance: PRESENT: no acute distress, disheveled, morbidly obese Head exam: PRESENT: atraumatic, normocephalic Eye exam: PRESENT: conjunctiva pale, EOMI. ABSENT: nystagmus, periorbital swelling, scleral icterus Mouth exam: PRESENT: dry mucosa, neck supple, tongue midline, other - ET tube in place Neck exam: ABSENT: carotid bruit, JVD, lymphadenopathy, thyromegaly, tracheal deviation, tracheostomy Respiratory exam: PRESENT: decreased breath sounds, prolonged expiratory phas, rhonchi, unlabored. ABSENT: retraction, stridor Cardiovascular exam: PRESENT: RRR, +S1, +S2 Pulses: PRESENT: normal radial pulses GI/Abdominal exam: PRESENT: normal bowel sounds, soft Extremities exam: ABSENT: calf tenderness, joint swelling, pedal edema Musculoskeletal exam: ABSENT: deformity, dislocation Neurological exam: PRESENT: awake, oriented to person. ABSENT: oriented to place, oriented to time Skin exam: PRESENT: dry, warm Results Laboratory Results: 11/13/17 06:35 11/13/17 06:35 11/12/17 11/13/17 11/13/17 11:10 06:35 06:35 WBC RBC Hgb Hct MCV MCH MCHC RDW Plt Count Seg Neutrophils % Lymphocytes % Monocytes % Eosinophils % Basophils % Absolute Neutrophils Absolute Lymphocytes Absolute Monocytes Absolute Eosinophils Absolute Basophils Carbonic Acid 1.59 H HCO3/H2CO3 Ratio 19:1 ABG pH 7.38 ABG pCO2 52.8 H ABG pO2 91.1 ABG HCO3 30.3 H ABG O2 Saturation 96.7 ABG Base Excess 4.0 FiO2 35% Sodium 131.6 L Potassium 3.3 L Chloride 91 L Carbon Dioxide 25 Anion Gap 16 BUN 17 Creatinine 0.67 Est GFR ( Amer) > 60 Est GFR (Non-Af Amer) > 60 Glucose 145 H Calcium 8.0 L Magnesium 1.5 L Total Bilirubin < 0.1 L AST 35 ALT 63 H Alkaline Phosphatase 58 Total Protein 6.1 L Albumin 3.1 L Fluid Type BRONCHIAL WASH Fluid Source LUNG Fluid Color RED Fluid Appearance CLOUDY Fluid Viscosity LIQUID Fluid WBC 633 Fluid RBC [address] 11/13/17 06:35 WBC 11.2 H RBC 3.95 Hgb 11.3 L Hct 31.2 L MCV 79 L MCH 28.6 MCHC 36.2 H RDW 16.5 H Plt Count 219 Seg Neutrophils % 82.5 H Lymphocytes % 13.1 Monocytes % 2.5 L Eosinophils % 1.0 Basophils % 0.9 Absolute Neutrophils 9.3 H Absolute Lymphocytes 1.5 Absolute Monocytes 0.3 Absolute Eosinophils 0.1 Absolute Basophils 0.1 Carbonic Acid HCO3/H2CO3 Ratio ABG pH ABG pCO2 ABG pO2 ABG HCO3 ABG O2 Saturation ABG Base Excess FiO2 Sodium Potassium Chloride Carbon Dioxide Anion Gap BUN Creatinine Est GFR ( Amer) Est GFR (Non-Af Amer) Glucose Calcium Magnesium Total Bilirubin AST ALT Alkaline Phosphatase Total Protein Albumin Fluid Type Fluid Source Fluid Color Fluid Appearance Fluid Viscosity Fluid WBC Fluid RBC 11/12/17 11:10 Bronchial Washings Nocardia Susceptibility - Final LODE MINER BLASTING 11/12/17 11:10 Bronchial Washings Nocardia Susceptibility - Final Not Reportable 11/12/17 11:10 Bronchial Washings Nocardia Susceptibility - Final Not Reportable 11/12/17 11:10 Bronchial Washings Nocardia Susceptibility - Final Not Reportable 11/12/17 11:10 Bronchial Washings Nocardia Susceptibility - Final Not Reportable 11/12/17 11:10 Bronchial Washings Nocardia Susceptibility - Final Not Reportable 11/12/17 11:10 Bronchial Washings Nocardia Susceptibility - Final Not Reportable 11/12/17 11:10 Bronchial Washings Nocardia Susceptibility - Final Not Reportable 11/12/17 11:10 Bronchial Washings Nocardia Susceptibility - Final Not Reportable 11/12/17 11:10 Bronchial Washings Microbiology Comment - Final Not Reportable 11/12/17 11:10 Bronchial Washings Fungal Smear - Final Not Reportable 11/12/17 11:10 Bronchial Washings Fungal Smear - Final Not Reportable 11/12/17 11:10 Bronchial Washings Fungal Smear - Final Not Reportable 11/12/17 11:10 Bronchial Washings Fungal Smear - Final Not Reportable 11/12/17 11:10 Bronchial Washings Fungal Smear - Final Not Reportable 11/12/17 11:10 Bronchial Washings Fungal Culture - Final Not Reportable 11/12/17 11:10 Bronchial Washings Fungal Culture - Final Not Reportable 11/12/17 11:10 Bronchial Washings Fungal Culture - Final Not Reportable 11/12/17 11:10 Bronchial Washings Susceptibility Special Request - Final Not Reportable 10/30/17 10/30/17 10/30/17 19:56 19:56 19:56 Creatine Kinase 75 CK-MB (CK-2) 2.28 Troponin I 0.447 NT-Pro-B Natriuret Pep 04402 H 10/31/17 10/31/17 10/31/17 01:42 01:42 07:16 Creatine Kinase 55 46 CK-MB (CK-2) 2.30 Troponin I 0.430 NT-Pro-B Natriuret Pep 10/31/17 11/01/17 07:16 05:01 Creatine Kinase CK-MB (CK-2) 2.18 Troponin I 0.399 0.340 NT-Pro-B Natriuret Pep Impressions: PICC Line Insertion 10/31/17 00:00 IMPRESSION: SUCCESSFUL PLACEMENT OF A 5 FR DUAL LUMEN 46 CM PICC IN THE RIGHT BASILIC VEIN. Guidance Fluoroscopy 11/01/17 00:00 IMPRESSION: SUCCESSFUL PLACEMENT OF A 5 FR DUAL LUMEN 46 CM PICC IN THE RIGHT BASILIC VEIN. Interventional Vascular Procedure 11/01/17 00:00 IMPRESSION: SUCCESSFUL PLACEMENT OF A 5 FR DUAL LUMEN 46 CM PICC IN THE RIGHT BASILIC VEIN. Chest X-Ray 11/13/17 07:00 IMPRESSION: Stable chest. Stable appropriate support lines and tubes. Assessment & Plan - Diagnosis (1) Acute respiratory failure with hypoxia and hypercapnia Is this a current diagnosis for this admission?: Yes Plan: Improving (2) Morbid obesity with BMI of 70 and over, adult Is this a current diagnosis for this admission?: Yes (3) Obesity hypoventilation syndrome Is this a current diagnosis for this admission?: Yes Plan: increased pCO2 (4) MRSA pneumonia Qualifiers: Laterality: unspecified laterality Lung location: unspecified part of lung Qualified Code(s): J15.212 - Pneumonia due to Methicillin resistant Staphylococcus aureus Is this a current diagnosis for this admission?: Yes (5) Hypertension Qualifiers: Hypertension type: essential hypertension Qualified Code(s): I10 - Essential (primary) hypertension Is this a current diagnosis for this admission?: Yes - Time Total Critical Time (Minutes): 40
--- NOTE | 2017-11-22 18:39 | PDOC PROGRESS REPORT ---
Subjective Progress Note for:: 11/14/17 Subjective:: will extubate to bipap Reason For Visit: ACUTE RESPIRATORY FAILURE WITH HYPERCAPNIA, Physical Exam Vital Signs: Temp Pulse Resp BP Pulse Ox 98.1 F 68 18 116/62 100 11/14/17 07:44 11/14/17 07:44 11/14/17 07:44 11/14/17 07:44 11/14/17 07:44 Intake & Output 11/13/17 11/14/17 11/15/17 06:59 06:59 06:59 Intake Total 4391 4198 Output Total 4520 4585 90 Balance -129 -387 -90 Weight 171.1 kg 177.8 kg General appearance: PRESENT: no acute distress, disheveled, morbidly obese Head exam: PRESENT: atraumatic, normocephalic Eye exam: PRESENT: conjunctiva pale, EOMI. ABSENT: nystagmus, periorbital swelling, scleral icterus Mouth exam: PRESENT: dry mucosa, neck supple, tongue midline, other - ET tube in place Neck exam: ABSENT: carotid bruit, JVD, lymphadenopathy, thyromegaly, tracheal deviation, tracheostomy Respiratory exam: PRESENT: decreased breath sounds, prolonged expiratory phas, rhonchi, unlabored. ABSENT: retraction, stridor Cardiovascular exam: PRESENT: RRR, +S1, +S2 Pulses: PRESENT: normal radial pulses GI/Abdominal exam: PRESENT: hypoactive bowel sounds, soft Gentrourinary exam: PRESENT: indwelling catheter Extremities exam: ABSENT: calf tenderness, clubbing, joint swelling Musculoskeletal exam: ABSENT: deformity, dislocation Neurological exam: PRESENT: awake, oriented to person, oriented to place Psychiatric exam: PRESENT: flat affect Skin exam: PRESENT: dry, warm Results Laboratory Results: 11/14/17 06:09 11/14/17 06:09 11/13/17 11/14/17 11/14/17 18:03 06:09 06:09 WBC RBC Hgb Hct MCV MCH MCHC RDW Plt Count Seg Neutrophils % Lymphocytes % Monocytes % Eosinophils % Basophils % Absolute Neutrophils Absolute Lymphocytes Absolute Monocytes Absolute Eosinophils Absolute Basophils Carbonic Acid 1.61 H HCO3/H2CO3 Ratio 20:1 ABG pH 7.41 ABG pCO2 53.4 H ABG pO2 110.2 H ABG HCO3 33.0 H ABG O2 Saturation 98.0 ABG Base Excess 6.7 FiO2 40% Sodium 134.7 L Potassium 3.7 3.2 L Chloride 96 L Carbon Dioxide 26 Anion Gap 13 BUN 17 Creatinine 0.66 Est GFR ( Amer) > 60 Est GFR (Non-Af Amer) > 60 Glucose 137 H Calcium 7.9 L Magnesium 1.7 1.5 L Total Bilirubin < 0.1 L AST 25 ALT 55 H Alkaline Phosphatase 52 Total Protein 5.7 L Albumin 2.9 L 11/14/17 06:09 WBC 10.5 RBC 3.91 Hgb 10.2 L Hct 30.9 L MCV 79 L MCH 26.1 L MCHC 33.0 RDW 16.5 H Plt Count 235 Seg Neutrophils % 74.0 Lymphocytes % 20.7 Monocytes % 3.6 Eosinophils % 1.1 Basophils % 0.6 Absolute Neutrophils 7.7 Absolute Lymphocytes 2.2 Absolute Monocytes 0.4 Absolute Eosinophils 0.1 Absolute Basophils 0.1 Carbonic Acid HCO3/H2CO3 Ratio ABG pH ABG pCO2 ABG pO2 ABG HCO3 ABG O2 Saturation ABG Base Excess FiO2 Sodium Potassium Chloride Carbon Dioxide Anion Gap BUN Creatinine Est GFR ( Amer) Est GFR (Non-Af Amer) Glucose Calcium Magnesium Total Bilirubin AST ALT Alkaline Phosphatase Total Protein Albumin 10/30/17 10/30/17 10/30/17 19:56 19:56 19:56 Creatine Kinase 75 CK-MB (CK-2) 2.28 Troponin I 0.447 NT-Pro-B Natriuret Pep 36347 H 10/31/17 10/31/17 10/31/17 01:42 01:42 07:16 Creatine Kinase 55 46 CK-MB (CK-2) 2.30 Troponin I 0.430 NT-Pro-B Natriuret Pep 10/31/17 11/01/17 07:16 05:01 Creatine Kinase CK-MB (CK-2) 2.18 Troponin I 0.399 0.340 NT-Pro-B Natriuret Pep Impressions: PICC Line Insertion 10/31/17 00:00 IMPRESSION: SUCCESSFUL PLACEMENT OF A 5 FR DUAL LUMEN 46 CM PICC IN THE RIGHT BASILIC VEIN. Guidance Fluoroscopy 11/01/17 00:00 IMPRESSION: SUCCESSFUL PLACEMENT OF A 5 FR DUAL LUMEN 46 CM PICC IN THE RIGHT BASILIC VEIN. Interventional Vascular Procedure 11/01/17 00:00 IMPRESSION: SUCCESSFUL PLACEMENT OF A 5 FR DUAL LUMEN 46 CM PICC IN THE RIGHT BASILIC VEIN. Chest X-Ray 11/14/17 07:00 IMPRESSION: Bilateral pneumonia. No significant change. Assessment & Plan - Diagnosis (1) Acute respiratory failure with hypoxia and hypercapnia Is this a current diagnosis for this admission?: Yes Plan: Respiratory rate, minute ventilation, FiO2, airway pressures suggest successful extubation will extubate to BiPAP (2) Morbid obesity with BMI of 70 and over, adult Is this a current diagnosis for this admission?: Yes (3) Obesity hypoventilation syndrome Is this a current diagnosis for this admission?: Yes Plan: increased pCO2 (4) MRSA pneumonia Qualifiers: Laterality: unspecified laterality Lung location: unspecified part of lung Qualified Code(s): J15.212 - Pneumonia due to Methicillin resistant Staphylococcus aureus Is this a current diagnosis for this admission?: Yes Plan: 11/04/17 15:15 Gram Stain - Final Tracheal Aspirate Sputum Culture - Final Mrsa (Meth Resis Staph Aureus) Normal Nancy Absent 10/30/17 23:40 Urine Culture - Final Catheterized Urine Escherichia Coli 10/30/17 16:05 Blood Culture - Final Blood Staphylococcus Epidermidis 10/07/17 10:10 Gram Stain - Final Leg - Left Wound Culture - Final Providencia Stuartii Pseudomonas Aeruginosa Enterococcus Faecalis(Group D) No Anaerobic Organisms 09/09/17 10:00 Gram Stain - Final Leg - Left Wound Culture - Final Enterococcus Faecalis(Group D) Pseudomonas Aeruginosa Peptostreptococcus Species 08/12/17 10:30 Gram Stain - Final Leg - Left Wound Culture - Final Pseudomonas Aeruginosa Enterococcus Faecalis(Group D) Mrsa (Meth Resis Staph Aureus) No Anaerobic Organisms (5) Hypertension Qualifiers: Hypertension type: essential hypertension Qualified Code(s): I10 - Essential (primary) hypertension Is this a current diagnosis for this admission?: Yes - Time Total Critical Time (Minutes): 55
--- NOTE | 2017-11-22 18:41 | PDOC PROGRESS REPORT ---
Subjective Progress Note for:: 11/15/17 Subjective:: 24 hours status post extubation stable Reason For Visit: ACUTE RESPIRATORY FAILURE WITH HYPERCAPNIA, Physical Exam Vital Signs: Temp Pulse Resp BP Pulse Ox 98.4 F 61 15 119/68 100 11/15/17 08:00 11/15/17 08:09 11/15/17 08:09 11/15/17 08:00 11/15/17 08:09 Intake & Output 11/14/17 11/15/17 11/16/17 06:59 06:59 06:59 Intake Total 4448 1232 Output Total 4585 6610 165 Balance -137 -5378 -165 Weight 177.8 kg 174.1 kg General appearance: PRESENT: no acute distress, disheveled, morbidly obese Head exam: PRESENT: atraumatic, normocephalic Eye exam: PRESENT: conjunctiva pale, EOMI. ABSENT: nystagmus, periorbital swelling, scleral icterus Mouth exam: PRESENT: dry mucosa, neck supple, tongue midline Neck exam: ABSENT: carotid bruit, JVD, lymphadenopathy, thyromegaly, tracheal deviation, tracheostomy Respiratory exam: PRESENT: decreased breath sounds, prolonged expiratory phas, rhonchi, unlabored. ABSENT: retraction, stridor Cardiovascular exam: PRESENT: RRR, +S1, +S2 Pulses: PRESENT: normal radial pulses GI/Abdominal exam: PRESENT: normal bowel sounds, soft Gentrourinary exam: PRESENT: indwelling catheter Extremities exam: ABSENT: calf tenderness, clubbing, joint swelling Musculoskeletal exam: ABSENT: deformity, dislocation Neurological exam: PRESENT: awake, oriented to person, oriented to place Psychiatric exam: PRESENT: flat affect Skin exam: PRESENT: dry, warm Results Laboratory Results: 11/15/17 06:35 11/15/17 06:35 11/14/17 11/14/17 11/14/17 14:45 15:40 23:05 WBC RBC Hgb Hct MCV MCH MCHC RDW Plt Count Seg Neutrophils % Lymphocytes % Monocytes % Eosinophils % Basophils % Absolute Neutrophils Absolute Lymphocytes Absolute Monocytes Absolute Eosinophils Absolute Basophils Carbonic Acid Cancelled 1.69 H HCO3/H2CO3 Ratio Cancelled 20:1 ABG pH Cancelled 7.40 ABG pCO2 Cancelled 56.2 H ABG pO2 Cancelled 62.5 L ABG HCO3 Cancelled 34.1 H ABG O2 Saturation Cancelled 91.5 L ABG Base Excess Cancelled 7.7 FiO2 Cancelled 35 Sodium 146.0 H Potassium 3.6 Chloride 99 Carbon Dioxide 34 H Anion Gap 13 BUN 19 Creatinine 0.80 Est GFR ( Amer) > 60 Est GFR (Non-Af Amer) > 60 Glucose 120 H Calcium 8.9 Phosphorus Magnesium 1.9 Total Bilirubin AST ALT Alkaline Phosphatase Total Protein Albumin 11/15/17 11/15/17 11/15/17 06:35 06:35 06:35 WBC 11.1 H RBC 4.31 Hgb 10.9 L Hct 34.0 L MCV 79 L MCH 25.2 L MCHC 32.0 RDW 16.8 H Plt Count 265 Seg Neutrophils % 69.1 Lymphocytes % 24.3 Monocytes % 4.6 Eosinophils % 1.3 Basophils % 0.7 Absolute Neutrophils 7.7 Absolute Lymphocytes 2.7 Absolute Monocytes 0.5 Absolute Eosinophils 0.1 Absolute Basophils 0.1 Carbonic Acid 1.75 H HCO3/H2CO3 Ratio 19:1 ABG pH 7.39 ABG pCO2 58.0 H ABG pO2 112.0 H ABG HCO3 34.3 H ABG O2 Saturation 98.0 ABG Base Excess 7.8 FiO2 35% Sodium 146.9 H Potassium 3.5 L Chloride 100 Carbon Dioxide 35 H Anion Gap 12 BUN 17 Creatinine 0.81 Est GFR ( Amer) > 60 Est GFR (Non-Af Amer) > 60 Glucose 116 H Calcium 8.9 Phosphorus 4.4 Magnesium 1.9 Total Bilirubin 0.3 AST 27 ALT 58 H Alkaline Phosphatase 57 Total Protein 6.6 Albumin 3.4 L 10/30/17 10/30/17 10/30/17 19:56 19:56 19:56 Creatine Kinase 75 CK-MB (CK-2) 2.28 Troponin I 0.447 NT-Pro-B Natriuret Pep 74337 H 10/31/17 10/31/17 10/31/17 01:42 01:42 07:16 Creatine Kinase 55 46 CK-MB (CK-2) 2.30 Troponin I 0.430 NT-Pro-B Natriuret Pep 10/31/17 11/01/17 11/14/17 07:16 05:01 17:55 Creatine Kinase CK-MB (CK-2) 2.18 Troponin I 0.399 0.340 NT-Pro-B Natriuret Pep 1800 H Impressions: PICC Line Insertion 10/31/17 00:00 IMPRESSION: SUCCESSFUL PLACEMENT OF A 5 FR DUAL LUMEN 46 CM PICC IN THE RIGHT BASILIC VEIN. Guidance Fluoroscopy 11/01/17 00:00 IMPRESSION: SUCCESSFUL PLACEMENT OF A 5 FR DUAL LUMEN 46 CM PICC IN THE RIGHT BASILIC VEIN. Interventional Vascular Procedure 11/01/17 00:00 IMPRESSION: SUCCESSFUL PLACEMENT OF A 5 FR DUAL LUMEN 46 CM PICC IN THE RIGHT BASILIC VEIN. Chest X-Ray 11/15/17 07:00 IMPRESSION: No significant change. Assessment & Plan - Diagnosis (1) Acute respiratory failure with hypoxia and hypercapnia Is this a current diagnosis for this admission?: Yes Plan: Stable (2) Morbid obesity with BMI of 70 and over, adult Is this a current diagnosis for this admission?: Yes (3) Obesity hypoventilation syndrome Is this a current diagnosis for this admission?: Yes Plan: increased pCO2 (4) MRSA pneumonia Qualifiers: Laterality: unspecified laterality Lung location: unspecified part of lung Qualified Code(s): J15.212 - Pneumonia due to Methicillin resistant Staphylococcus aureus Is this a current diagnosis for this admission?: Yes Plan: 11/04/17 15:15 Gram Stain - Final Tracheal Aspirate Sputum Culture - Final Mrsa (Meth Resis Staph Aureus) Normal Nancy Absent 10/30/17 23:40 Urine Culture - Final Catheterized Urine Escherichia Coli 10/30/17 16:05 Blood Culture - Final Blood Staphylococcus Epidermidis 10/07/17 10:10 Gram Stain - Final Leg - Left Wound Culture - Final Providencia Stuartii Pseudomonas Aeruginosa Enterococcus Faecalis(Group D) No Anaerobic Organisms 09/09/17 10:00 Gram Stain - Final Leg - Left Wound Culture - Final Enterococcus Faecalis(Group D) Pseudomonas Aeruginosa Peptostreptococcus Species 08/12/17 10:30 Gram Stain - Final Leg - Left Wound Culture - Final Pseudomonas Aeruginosa Enterococcus Faecalis(Group D) Mrsa (Meth Resis Staph Aureus) No Anaerobic Organisms (5) Hypertension Qualifiers: Hypertension type: essential hypertension Qualified Code(s): I10 - Essential (primary) hypertension Is this a current diagnosis for this admission?: Yes - Time Total Critical Time (Minutes): 40
--- NOTE | 2017-11-22 18:43 | PDOC PROGRESS REPORT ---
Subjective Progress Note for:: 11/16/17 Subjective:: 24 hours status post extubation stable Reason For Visit: ACUTE RESPIRATORY FAILURE WITH HYPERCAPNIA, Physical Exam Vital Signs: Temp Pulse Resp BP Pulse Ox 98.8 F 68 16 137/75 H 99 11/16/17 08:00 11/16/17 08:00 11/16/17 08:00 11/16/17 08:00 11/16/17 08:00 Intake & Output 11/15/17 11/16/17 11/17/17 06:59 06:59 06:59 Intake Total 2632 1250 Output Total 6610 3145 125 Balance -3978 -1895 -125 Weight 174.1 kg 173.6 kg General appearance: PRESENT: no acute distress, disheveled, morbidly obese Head exam: PRESENT: atraumatic, normocephalic Eye exam: PRESENT: conjunctiva pale, EOMI. ABSENT: nystagmus, periorbital swelling, scleral icterus Mouth exam: PRESENT: moist, neck supple, tongue midline Neck exam: ABSENT: carotid bruit, JVD, lymphadenopathy, thyromegaly, tracheal deviation, tracheostomy Respiratory exam: PRESENT: decreased breath sounds, prolonged expiratory phas, rales, rhonchi, unlabored. ABSENT: retraction, stridor Cardiovascular exam: PRESENT: RRR, +S1, +S2 Pulses: PRESENT: normal radial pulses GI/Abdominal exam: PRESENT: normal bowel sounds, soft Extremities exam: ABSENT: calf tenderness, clubbing, joint swelling Musculoskeletal exam: ABSENT: deformity, dislocation Neurological exam: PRESENT: awake Psychiatric exam: PRESENT: flat affect Skin exam: PRESENT: dry, vesicles Results Laboratory Results: 11/16/17 05:15 11/16/17 05:15 11/16/17 11/16/17 11/16/17 05:15 05:15 05:15 WBC 10.5 RBC 4.46 Hgb 11.2 L Hct 35.3 L MCV 79 L MCH 25.2 L MCHC 31.8 L RDW 16.4 H Plt Count 245 Seg Neutrophils % 72.2 Lymphocytes % 22.0 Monocytes % 3.5 Eosinophils % 1.3 Basophils % 1.0 Absolute Neutrophils 7.6 Absolute Lymphocytes 2.3 Absolute Monocytes 0.4 Absolute Eosinophils 0.1 Absolute Basophils 0.1 Carbonic Acid 1.81 H HCO3/H2CO3 Ratio 19:1 ABG pH 7.40 ABG pCO2 60.0 H ABG pO2 79.6 L ABG HCO3 36.0 H ABG O2 Saturation 95.4 ABG Base Excess 9.2 FiO2 28 Sodium 146.2 H Potassium 3.5 L Chloride 99 Carbon Dioxide 35 H Anion Gap 12 BUN 20 Creatinine 0.84 Est GFR ( Amer) > 60 Est GFR (Non-Af Amer) > 60 Glucose 151 H Calcium 9.0 Phosphorus 4.4 Magnesium 1.7 Total Bilirubin 0.4 AST 32 ALT 64 H Alkaline Phosphatase 57 Total Protein 6.7 Albumin 3.4 L 11/12/17 11:10 Bronchial Washings AFB Smear Concentration - Final 11/12/17 11:10 Bronchial Washings Acid Fast Bacilli Smear - Final 11/12/17 11:10 Bronchial Washings Gram Stain - Final 11/12/17 11:10 Bronchial Washings Bronchial Washings Culture - Final Acinetobacter Species Staphylococcus Aureus Normal Nancy Absent 10/30/17 10/30/17 10/30/17 19:56 19:56 19:56 Creatine Kinase 75 CK-MB (CK-2) 2.28 Troponin I 0.447 NT-Pro-B Natriuret Pep 52236 H 10/31/17 10/31/17 10/31/17 01:42 01:42 07:16 Creatine Kinase 55 46 CK-MB (CK-2) 2.30 Troponin I 0.430 NT-Pro-B Natriuret Pep 10/31/17 11/01/17 11/14/17 07:16 05:01 17:55 Creatine Kinase CK-MB (CK-2) 2.18 Troponin I 0.399 0.340 NT-Pro-B Natriuret Pep 1800 H Impressions: PICC Line Insertion 10/31/17 00:00 IMPRESSION: SUCCESSFUL PLACEMENT OF A 5 FR DUAL LUMEN 46 CM PICC IN THE RIGHT BASILIC VEIN. Guidance Fluoroscopy 11/01/17 00:00 IMPRESSION: SUCCESSFUL PLACEMENT OF A 5 FR DUAL LUMEN 46 CM PICC IN THE RIGHT BASILIC VEIN. Interventional Vascular Procedure 11/01/17 00:00 IMPRESSION: SUCCESSFUL PLACEMENT OF A 5 FR DUAL LUMEN 46 CM PICC IN THE RIGHT BASILIC VEIN. Chest X-Ray 11/16/17 07:00 IMPRESSION: No significant change. Assessment & Plan - Diagnosis (1) Acute respiratory failure with hypoxia and hypercapnia Is this a current diagnosis for this admission?: Yes Plan: Stable (2) Morbid obesity with BMI of 70 and over, adult Is this a current diagnosis for this admission?: Yes (3) Obesity hypoventilation syndrome Is this a current diagnosis for this admission?: Yes Plan: increased pCO2 (4) MRSA pneumonia Qualifiers: Laterality: unspecified laterality Lung location: unspecified part of lung Qualified Code(s): J15.212 - Pneumonia due to Methicillin resistant Staphylococcus aureus Is this a current diagnosis for this admission?: Yes Plan: 11/04/17 15:15 Gram Stain - Final Tracheal Aspirate Sputum Culture - Final Mrsa (Meth Resis Staph Aureus) Normal Nancy Absent 10/30/17 23:40 Urine Culture - Final Catheterized Urine Escherichia Coli 10/30/17 16:05 Blood Culture - Final Blood Staphylococcus Epidermidis 10/07/17 10:10 Gram Stain - Final Leg - Left Wound Culture - Final Providencia Stuartii Pseudomonas Aeruginosa Enterococcus Faecalis(Group D) No Anaerobic Organisms 09/09/17 10:00 Gram Stain - Final Leg - Left Wound Culture - Final Enterococcus Faecalis(Group D) Pseudomonas Aeruginosa Peptostreptococcus Species 08/12/17 10:30 Gram Stain - Final Leg - Left Wound Culture - Final Pseudomonas Aeruginosa Enterococcus Faecalis(Group D) Mrsa (Meth Resis Staph Aureus) No Anaerobic Organisms (5) Hypertension Qualifiers: Hypertension type: essential hypertension Qualified Code(s): I10 - Essential (primary) hypertension Is this a current diagnosis for this admission?: Yes - Time Total Critical Time (Minutes): 40
--- NOTE | 2017-11-22 18:46 | PDOC PROGRESS REPORT ---
Subjective Progress Note for:: 11/17/17 Subjective:: 24 hours status post extubation stable Reason For Visit: ACUTE RESPIRATORY FAILURE WITH HYPERCAPNIA, Physical Exam Vital Signs: Temp Pulse Resp BP Pulse Ox 99.1 F 71 22 H 156/78 H 97 11/17/17 08:30 11/17/17 08:35 11/17/17 08:30 11/17/17 08:02 11/17/17 08:30 Intake & Output 11/16/17 11/17/17 11/18/17 06:59 06:59 06:59 Intake Total 2250 450 Output Total 3145 3085 125 Balance -895 -2635 -125 Weight 173.6 kg 171.9 kg General appearance: PRESENT: no acute distress, disheveled, morbidly obese Head exam: PRESENT: atraumatic, normocephalic Eye exam: PRESENT: conjunctiva pale, EOMI. ABSENT: nystagmus, periorbital swelling, scleral icterus Mouth exam: PRESENT: moist, neck supple, tongue midline Neck exam: ABSENT: carotid bruit, JVD, lymphadenopathy, thyromegaly, tracheal deviation, tracheostomy Respiratory exam: PRESENT: prolonged expiratory phas, rales, rhonchi, unlabored. ABSENT: retraction, stridor Cardiovascular exam: PRESENT: RRR, +S1, +S2 Pulses: PRESENT: normal radial pulses GI/Abdominal exam: PRESENT: normal bowel sounds, soft Gentrourinary exam: PRESENT: indwelling catheter Extremities exam: PRESENT: joint swelling. ABSENT: calf tenderness, clubbing Musculoskeletal exam: ABSENT: ambulatory, deformity, dislocation Neurological exam: PRESENT: awake Psychiatric exam: PRESENT: flat affect Skin exam: PRESENT: dry, warm Results Laboratory Results: 11/17/17 06:30 11/17/17 06:30 11/17/17 11/17/17 11/17/17 06:30 06:30 09:10 WBC 10.0 RBC 4.49 Hgb 11.3 L Hct 35.7 L MCV 80 MCH 25.2 L MCHC 31.6 L RDW 16.5 H Plt Count 236 Seg Neutrophils % 71.2 Lymphocytes % 23.2 Monocytes % 3.7 Eosinophils % 1.2 Basophils % 0.7 Absolute Neutrophils 7.1 Absolute Lymphocytes 2.3 Absolute Monocytes 0.4 Absolute Eosinophils 0.1 Absolute Basophils 0.1 Carbonic Acid 1.74 H HCO3/H2CO3 Ratio 19:1 ABG pH 7.38 ABG pCO2 57.7 H ABG pO2 78.9 L ABG HCO3 33.4 H ABG O2 Saturation 95.2 ABG Base Excess 6.7 FiO2 5L Sodium 145.9 H Potassium 3.7 Chloride 98 Carbon Dioxide 36 H Anion Gap 12 BUN 22 H Creatinine 0.84 Est GFR ( Amer) > 60 Est GFR (Non-Af Amer) > 60 Glucose 152 H Calcium 9.1 Phosphorus 4.0 Magnesium 1.6 Total Bilirubin 0.5 AST 34 ALT 66 H Alkaline Phosphatase 57 Total Protein 6.9 Albumin 3.7 11/12/17 11:10 Bronchial Washings Fungal Smear - Final 11/12/17 11:10 Bronchial Washings Fungal Smear - Final 10/30/17 10/30/17 10/30/17 19:56 19:56 19:56 Creatine Kinase 75 CK-MB (CK-2) 2.28 Troponin I 0.447 NT-Pro-B Natriuret Pep 53076 H 10/31/17 10/31/17 10/31/17 01:42 01:42 07:16 Creatine Kinase 55 46 CK-MB (CK-2) 2.30 Troponin I 0.430 NT-Pro-B Natriuret Pep 10/31/17 11/01/17 11/14/17 07:16 05:01 17:55 Creatine Kinase CK-MB (CK-2) 2.18 Troponin I 0.399 0.340 NT-Pro-B Natriuret Pep 1800 H Impressions: PICC Line Insertion 10/31/17 00:00 IMPRESSION: SUCCESSFUL PLACEMENT OF A 5 FR DUAL LUMEN 46 CM PICC IN THE RIGHT BASILIC VEIN. Guidance Fluoroscopy 11/01/17 00:00 IMPRESSION: SUCCESSFUL PLACEMENT OF A 5 FR DUAL LUMEN 46 CM PICC IN THE RIGHT BASILIC VEIN. Interventional Vascular Procedure 11/01/17 00:00 IMPRESSION: SUCCESSFUL PLACEMENT OF A 5 FR DUAL LUMEN 46 CM PICC IN THE RIGHT BASILIC VEIN. Chest X-Ray 11/17/17 07:00 IMPRESSION: No significant change. Assessment & Plan - Diagnosis (1) Acute respiratory failure with hypoxia and hypercapnia Is this a current diagnosis for this admission?: Yes Plan: Stable (2) Morbid obesity with BMI of 70 and over, adult Is this a current diagnosis for this admission?: Yes (3) Obesity hypoventilation syndrome Is this a current diagnosis for this admission?: Yes Plan: increased pCO2 (4) MRSA pneumonia Qualifiers: Laterality: unspecified laterality Lung location: unspecified part of lung Qualified Code(s): J15.212 - Pneumonia due to Methicillin resistant Staphylococcus aureus Is this a current diagnosis for this admission?: Yes Plan: 11/04/17 15:15 Gram Stain - Final Tracheal Aspirate Sputum Culture - Final Mrsa (Meth Resis Staph Aureus) Normal Nancy Absent 10/30/17 23:40 Urine Culture - Final Catheterized Urine Escherichia Coli 10/30/17 16:05 Blood Culture - Final Blood Staphylococcus Epidermidis 10/07/17 10:10 Gram Stain - Final Leg - Left Wound Culture - Final Providencia Stuartii Pseudomonas Aeruginosa Enterococcus Faecalis(Group D) No Anaerobic Organisms 09/09/17 10:00 Gram Stain - Final Leg - Left Wound Culture - Final Enterococcus Faecalis(Group D) Pseudomonas Aeruginosa Peptostreptococcus Species 08/12/17 10:30 Gram Stain - Final Leg - Left Wound Culture - Final Pseudomonas Aeruginosa Enterococcus Faecalis(Group D) Mrsa (Meth Resis Staph Aureus) No Anaerobic Organisms (5) Hypertension Qualifiers: Hypertension type: essential hypertension Qualified Code(s): I10 - Essential (primary) hypertension Is this a current diagnosis for this admission?: Yes - Time Total Critical Time (Minutes): 40
--- NOTE | 2017-11-22 18:49 | PDOC PROGRESS REPORT ---
Subjective Progress Note for:: 11/18/17 Subjective:: 24 hours status post extubation stable Reason For Visit: ACUTE RESPIRATORY FAILURE WITH HYPERCAPNIA, Physical Exam Vital Signs: Temp Pulse Resp BP Pulse Ox 98.2 F 75 17 122/79 96 11/18/17 04:45 11/18/17 02:13 11/18/17 04:45 11/18/17 04:09 11/18/17 04:45 Intake & Output 11/16/17 11/17/17 11/18/17 06:59 06:59 06:59 Intake Total 2250 1450 718 Output Total 3148 308 3100 Balance -990 -8498 -7617 Weight 173.6 kg 171.9 kg 172.4 kg General appearance: PRESENT: no acute distress, cooperative, disheveled, morbidly obese Head exam: PRESENT: atraumatic, normocephalic Eye exam: PRESENT: conjunctiva pale, EOMI. ABSENT: nystagmus, periorbital swelling, scleral icterus Mouth exam: PRESENT: moist, neck supple, tongue midline Neck exam: ABSENT: carotid bruit, JVD, lymphadenopathy, thyromegaly, tracheal deviation, tracheostomy Respiratory exam: PRESENT: decreased breath sounds, prolonged expiratory phas, rales, rhonchi, unlabored. ABSENT: retraction, stridor Cardiovascular exam: PRESENT: +S1, +S2 Pulses: PRESENT: normal radial pulses GI/Abdominal exam: PRESENT: normal bowel sounds, soft Gentrourinary exam: PRESENT: indwelling catheter Extremities exam: PRESENT: pedal edema. ABSENT: calf tenderness, clubbing, joint swelling Musculoskeletal exam: ABSENT: deformity, dislocation Neurological exam: PRESENT: awake Psychiatric exam: PRESENT: flat affect Skin exam: PRESENT: dry, warm Results Laboratory Results: 11/18/17 04:55 11/18/17 04:55 11/17/17 11/17/17 11/18/17 06:30 09:10 04:55 WBC 11.2 H RBC 4.41 Hgb 11.2 L Hct 35.4 L MCV 80 MCH 25.3 L MCHC 31.5 L RDW 16.8 H Plt Count 216 Seg Neutrophils % 63.2 Lymphocytes % 29.2 Monocytes % 4.7 Eosinophils % 2.4 Basophils % 0.5 Absolute Neutrophils 7.1 Absolute Lymphocytes 3.3 Absolute Monocytes 0.5 Absolute Eosinophils 0.3 Absolute Basophils 0.1 Carbonic Acid 1.74 H HCO3/H2CO3 Ratio 19:1 ABG pH 7.38 ABG pCO2 57.7 H ABG pO2 78.9 L ABG HCO3 33.4 H ABG O2 Saturation 95.2 ABG Base Excess 6.7 FiO2 5L Sodium 145.9 H Potassium 3.7 Chloride 98 Carbon Dioxide 36 H Anion Gap 12 BUN 22 H Creatinine 0.84 Est GFR ( Amer) > 60 Est GFR (Non-Af Amer) > 60 Glucose 152 H Calcium 9.1 Phosphorus 4.0 Magnesium 1.6 Total Bilirubin 0.5 AST 34 ALT 66 H Alkaline Phosphatase 57 Total Protein 6.9 Albumin 3.7 11/18/17 04:55 WBC RBC Hgb Hct MCV MCH MCHC RDW Plt Count Seg Neutrophils % Lymphocytes % Monocytes % Eosinophils % Basophils % Absolute Neutrophils Absolute Lymphocytes Absolute Monocytes Absolute Eosinophils Absolute Basophils Carbonic Acid HCO3/H2CO3 Ratio ABG pH ABG pCO2 ABG pO2 ABG HCO3 ABG O2 Saturation ABG Base Excess FiO2 Sodium 145.2 H Potassium 3.6 Chloride 99 Carbon Dioxide 38 H Anion Gap 8 BUN 24 H Creatinine 0.90 Est GFR ( Amer) > 60 Est GFR (Non-Af Amer) > 60 Glucose 144 H Calcium 9.2 Phosphorus Magnesium Total Bilirubin 0.3 AST 35 ALT 68 H Alkaline Phosphatase 54 Total Protein 6.8 Albumin 3.5 10/30/17 10/30/17 10/30/17 19:56 19:56 19:56 Creatine Kinase 75 CK-MB (CK-2) 2.28 Troponin I 0.447 NT-Pro-B Natriuret Pep 94216 H 10/31/17 10/31/17 10/31/17 01:42 01:42 07:16 Creatine Kinase 55 46 CK-MB (CK-2) 2.30 Troponin I 0.430 NT-Pro-B Natriuret Pep 10/31/17 11/01/17 11/14/17 07:16 05:01 17:55 Creatine Kinase CK-MB (CK-2) 2.18 Troponin I 0.399 0.340 NT-Pro-B Natriuret Pep 1800 H Impressions: PICC Line Insertion 10/31/17 00:00 IMPRESSION: SUCCESSFUL PLACEMENT OF A 5 FR DUAL LUMEN 46 CM PICC IN THE RIGHT BASILIC VEIN. Guidance Fluoroscopy 11/01/17 00:00 IMPRESSION: SUCCESSFUL PLACEMENT OF A 5 FR DUAL LUMEN 46 CM PICC IN THE RIGHT BASILIC VEIN. Interventional Vascular Procedure 11/01/17 00:00 IMPRESSION: SUCCESSFUL PLACEMENT OF A 5 FR DUAL LUMEN 46 CM PICC IN THE RIGHT BASILIC VEIN. Assessment & Plan - Diagnosis (1) Acute respiratory failure with hypoxia and hypercapnia Is this a current diagnosis for this admission?: Yes Plan: Stable (2) Morbid obesity with BMI of 70 and over, adult Is this a current diagnosis for this admission?: Yes (3) Obesity hypoventilation syndrome Is this a current diagnosis for this admission?: Yes Plan: increased pCO2 (4) MRSA pneumonia Qualifiers: Laterality: unspecified laterality Lung location: unspecified part of lung Qualified Code(s): J15.212 - Pneumonia due to Methicillin resistant Staphylococcus aureus Is this a current diagnosis for this admission?: Yes Plan: 11/04/17 15:15 Gram Stain - Final Tracheal Aspirate Sputum Culture - Final Mrsa (Meth Resis Staph Aureus) Normal Nancy Absent 10/30/17 23:40 Urine Culture - Final Catheterized Urine Escherichia Coli 10/30/17 16:05 Blood Culture - Final Blood Staphylococcus Epidermidis 10/07/17 10:10 Gram Stain - Final Leg - Left Wound Culture - Final Providencia Stuartii Pseudomonas Aeruginosa Enterococcus Faecalis(Group D) No Anaerobic Organisms 09/09/17 10:00 Gram Stain - Final Leg - Left Wound Culture - Final Enterococcus Faecalis(Group D) Pseudomonas Aeruginosa Peptostreptococcus Species 08/12/17 10:30 Gram Stain - Final Leg - Left Wound Culture - Final Pseudomonas Aeruginosa Enterococcus Faecalis(Group D) Mrsa (Meth Resis Staph Aureus) No Anaerobic Organisms (5) Hypertension Qualifiers: Hypertension type: essential hypertension Qualified Code(s): I10 - Essential (primary) hypertension Is this a current diagnosis for this admission?: Yes - Time Total Critical Time (Minutes): 40
--- NOTE | 2017-11-22 18:51 | PDOC PROGRESS REPORT ---
Subjective Progress Note for:: 11/21/17 Subjective:: 24 hours status post extubation stable Reason For Visit: ACUTE RESPIRATORY FAILURE WITH HYPERCAPNIA, Physical Exam Vital Signs: Temp Pulse Resp BP Pulse Ox 97.9 F 51 L 17 139/91 H 100 11/21/17 08:12 11/21/17 08:12 11/21/17 08:12 11/21/17 08:12 11/21/17 08:12 Intake & Output 11/20/17 11/21/17 11/22/17 06:59 06:59 06:59 Intake Total 1936 1743 50 Output Total 2775 925 Balance -839 818 50 Weight 176.6 kg 139.2 kg General appearance: PRESENT: no acute distress, cooperative, disheveled, morbidly obese Head exam: PRESENT: atraumatic, normocephalic Eye exam: PRESENT: conjunctiva pale, EOMI. ABSENT: nystagmus, periorbital swelling, scleral icterus Mouth exam: PRESENT: moist, neck supple, tongue midline Neck exam: ABSENT: carotid bruit, JVD, lymphadenopathy, thyromegaly, tracheal deviation, tracheostomy Respiratory exam: PRESENT: decreased breath sounds, prolonged expiratory phas, rhonchi, unlabored. ABSENT: retraction, stridor Cardiovascular exam: PRESENT: RRR, +S1, +S2 Pulses: PRESENT: normal radial pulses GI/Abdominal exam: PRESENT: normal bowel sounds, soft Gentrourinary exam: PRESENT: indwelling catheter Extremities exam: PRESENT: pedal edema. ABSENT: calf tenderness, clubbing, joint swelling Musculoskeletal exam: ABSENT: ambulatory, deformity, dislocation Neurological exam: PRESENT: awake Psychiatric exam: PRESENT: flat affect Skin exam: PRESENT: dry, warm Results Laboratory Results: 11/21/17 06:00 11/21/17 06:00 11/20/17 11/21/17 11/21/17 15:25 06:00 06:00 WBC 9.0 RBC 4.58 Hgb 11.7 L Hct 36.3 MCV 79 L MCH 25.5 L MCHC 32.2 RDW 16.6 H Plt Count 191 Seg Neutrophils % 66.5 Lymphocytes % 26.1 Monocytes % 5.6 Eosinophils % 1.3 Basophils % 0.5 Absolute Neutrophils 6.0 Absolute Lymphocytes 2.3 Absolute Monocytes 0.5 Absolute Eosinophils 0.1 Absolute Basophils 0.0 Carbonic Acid 1.65 H HCO3/H2CO3 Ratio 20:1 ABG pH 7.40 ABG pCO2 54.7 H ABG pO2 72.0 L ABG HCO3 33.3 H ABG O2 Saturation 94.2 ABG Base Excess 7.0 FiO2 30% Sodium 143.4 Potassium 3.5 L Chloride 98 Carbon Dioxide 32 H Anion Gap 13 BUN 22 H Creatinine 0.79 Est GFR ( Amer) > 60 Est GFR (Non-Af Amer) > 60 Glucose 138 H Calcium 9.5 Total Bilirubin 0.4 AST 28 ALT 56 H Alkaline Phosphatase 53 Total Protein 6.9 Albumin 3.7 10/30/17 10/30/17 10/30/17 19:56 19:56 19:56 Creatine Kinase 75 CK-MB (CK-2) 2.28 Troponin I 0.447 NT-Pro-B Natriuret Pep 04143 H 10/31/17 10/31/17 10/31/17 01:42 01:42 07:16 Creatine Kinase 55 46 CK-MB (CK-2) 2.30 Troponin I 0.430 NT-Pro-B Natriuret Pep 10/31/17 11/01/17 11/14/17 07:16 05:01 17:55 Creatine Kinase CK-MB (CK-2) 2.18 Troponin I 0.399 0.340 NT-Pro-B Natriuret Pep 1800 H Impressions: PICC Line Insertion 10/31/17 00:00 IMPRESSION: SUCCESSFUL PLACEMENT OF A 5 FR DUAL LUMEN 46 CM PICC IN THE RIGHT BASILIC VEIN. Guidance Fluoroscopy 11/01/17 00:00 IMPRESSION: SUCCESSFUL PLACEMENT OF A 5 FR DUAL LUMEN 46 CM PICC IN THE RIGHT BASILIC VEIN. Interventional Vascular Procedure 11/01/17 00:00 IMPRESSION: SUCCESSFUL PLACEMENT OF A 5 FR DUAL LUMEN 46 CM PICC IN THE RIGHT BASILIC VEIN. Chest X-Ray 11/21/17 07:00 IMPRESSION: Left upper lobe pneumonia along the left heart border, more prominent than on previous films Assessment & Plan - Diagnosis (1) Acute respiratory failure with hypoxia and hypercapnia Is this a current diagnosis for this admission?: Yes Plan: Stable (2) Morbid obesity with BMI of 70 and over, adult Is this a current diagnosis for this admission?: Yes (3) Obesity hypoventilation syndrome Is this a current diagnosis for this admission?: Yes Plan: increased pCO2 (4) MRSA pneumonia Qualifiers: Laterality: unspecified laterality Lung location: unspecified part of lung Qualified Code(s): J15.212 - Pneumonia due to Methicillin resistant Staphylococcus aureus Is this a current diagnosis for this admission?: Yes Plan: 11/04/17 15:15 Gram Stain - Final Tracheal Aspirate Sputum Culture - Final Mrsa (Meth Resis Staph Aureus) Normal Nancy Absent 10/30/17 23:40 Urine Culture - Final Catheterized Urine Escherichia Coli 10/30/17 16:05 Blood Culture - Final Blood Staphylococcus Epidermidis 10/07/17 10:10 Gram Stain - Final Leg - Left Wound Culture - Final Providencia Stuartii Pseudomonas Aeruginosa Enterococcus Faecalis(Group D) No Anaerobic Organisms 09/09/17 10:00 Gram Stain - Final Leg - Left Wound Culture - Final Enterococcus Faecalis(Group D) Pseudomonas Aeruginosa Peptostreptococcus Species 08/12/17 10:30 Gram Stain - Final Leg - Left Wound Culture - Final Pseudomonas Aeruginosa Enterococcus Faecalis(Group D) Mrsa (Meth Resis Staph Aureus) No Anaerobic Organisms (5) Hypertension Qualifiers: Hypertension type: essential hypertension Qualified Code(s): I10 - Essential (primary) hypertension Is this a current diagnosis for this admission?: Yes
--- NOTE | 2017-11-22 18:53 | PDOC PROGRESS REPORT ---
Subjective Progress Note for:: 11/22/17 Subjective:: 24 hours status post extubation stable Reason For Visit: ACUTE RESPIRATORY FAILURE WITH HYPERCAPNIA, Physical Exam Vital Signs: Temp Pulse Resp BP Pulse Ox 98.8 F 79 20 146/88 H 98 11/22/17 16:50 11/22/17 16:50 11/22/17 16:50 11/22/17 16:50 11/22/17 16:50 Intake & Output 11/21/17 11/22/17 11/23/17 06:59 06:59 06:59 Intake Total 1743 2124 614 Output Total 925 200 Balance 818 1924 614 Weight 139.2 kg General appearance: PRESENT: no acute distress, cooperative, disheveled, morbidly obese Head exam: PRESENT: atraumatic, normocephalic Eye exam: PRESENT: conjunctiva pale, EOMI. ABSENT: nystagmus, periorbital swelling, scleral icterus Mouth exam: PRESENT: moist, neck supple, tongue midline Neck exam: ABSENT: carotid bruit, JVD, lymphadenopathy, thyromegaly, tracheal deviation, tracheostomy Respiratory exam: PRESENT: decreased breath sounds, prolonged expiratory phas, rhonchi, unlabored. ABSENT: retraction, stridor Cardiovascular exam: PRESENT: RRR, +S1, +S2 Pulses: PRESENT: normal radial pulses GI/Abdominal exam: PRESENT: normal bowel sounds, soft Gentrourinary exam: PRESENT: indwelling catheter Extremities exam: PRESENT: pedal edema. ABSENT: calf tenderness, clubbing, joint swelling Musculoskeletal exam: ABSENT: deformity, dislocation Neurological exam: PRESENT: awake Psychiatric exam: PRESENT: flat affect Skin exam: PRESENT: dry, warm Results Laboratory Results: 11/22/17 05:30 11/22/17 05:30 11/22/17 11/22/17 05:30 05:30 WBC 8.4 RBC 4.54 Hgb 11.6 L Hct 36.1 MCV 79 L MCH 25.5 L MCHC 32.0 RDW 17.0 H Plt Count 193 Seg Neutrophils % 74.1 Lymphocytes % 20.5 Monocytes % 4.3 Eosinophils % 0.6 Basophils % 0.5 Absolute Neutrophils 6.2 Absolute Lymphocytes 1.7 Absolute Monocytes 0.4 Absolute Eosinophils 0.1 Absolute Basophils 0.0 Sodium 143.3 Potassium 3.6 Chloride 98 Carbon Dioxide 32 H Anion Gap 13 BUN 25 H Creatinine 0.88 Est GFR ( Amer) > 60 Est GFR (Non-Af Amer) > 60 Glucose 157 H Calcium 9.4 Total Bilirubin 0.4 AST 26 ALT 58 H Alkaline Phosphatase 55 Total Protein 7.1 Albumin 3.8 10/30/17 10/30/17 10/30/17 19:56 19:56 19:56 Creatine Kinase 75 CK-MB (CK-2) 2.28 Troponin I 0.447 NT-Pro-B Natriuret Pep 98505 H 10/31/17 10/31/17 10/31/17 01:42 01:42 07:16 Creatine Kinase 55 46 CK-MB (CK-2) 2.30 Troponin I 0.430 NT-Pro-B Natriuret Pep 10/31/17 11/01/17 11/14/17 07:16 05:01 17:55 Creatine Kinase CK-MB (CK-2) 2.18 Troponin I 0.399 0.340 NT-Pro-B Natriuret Pep 1800 H Impressions: PICC Line Insertion 10/31/17 00:00 IMPRESSION: SUCCESSFUL PLACEMENT OF A 5 FR DUAL LUMEN 46 CM PICC IN THE RIGHT BASILIC VEIN. Guidance Fluoroscopy 11/01/17 00:00 IMPRESSION: SUCCESSFUL PLACEMENT OF A 5 FR DUAL LUMEN 46 CM PICC IN THE RIGHT BASILIC VEIN. Interventional Vascular Procedure 11/01/17 00:00 IMPRESSION: SUCCESSFUL PLACEMENT OF A 5 FR DUAL LUMEN 46 CM PICC IN THE RIGHT BASILIC VEIN. Chest X-Ray 11/22/17 07:00 IMPRESSION: Improving pneumonia. Assessment & Plan - Diagnosis (1) Acute respiratory failure with hypoxia and hypercapnia Is this a current diagnosis for this admission?: Yes Plan: Stable (2) Morbid obesity with BMI of 70 and over, adult Is this a current diagnosis for this admission?: Yes (3) Obesity hypoventilation syndrome Is this a current diagnosis for this admission?: Yes Plan: increased pCO2 (4) MRSA pneumonia Qualifiers: Laterality: unspecified laterality Lung location: unspecified part of lung Qualified Code(s): J15.212 - Pneumonia due to Methicillin resistant Staphylococcus aureus Is this a current diagnosis for this admission?: Yes Plan: 11/04/17 15:15 Gram Stain - Final Tracheal Aspirate Sputum Culture - Final Mrsa (Meth Resis Staph Aureus) Normal Nancy Absent 10/30/17 23:40 Urine Culture - Final Catheterized Urine Escherichia Coli 10/30/17 16:05 Blood Culture - Final Blood Staphylococcus Epidermidis 10/07/17 10:10 Gram Stain - Final Leg - Left Wound Culture - Final Providencia Stuartii Pseudomonas Aeruginosa Enterococcus Faecalis(Group D) No Anaerobic Organisms 09/09/17 10:00 Gram Stain - Final Leg - Left Wound Culture - Final Enterococcus Faecalis(Group D) Pseudomonas Aeruginosa Peptostreptococcus Species 08/12/17 10:30 Gram Stain - Final Leg - Left Wound Culture - Final Pseudomonas Aeruginosa Enterococcus Faecalis(Group D) Mrsa (Meth Resis Staph Aureus) No Anaerobic Organisms (5) Hypertension Qualifiers: Hypertension type: essential hypertension Qualified Code(s): I10 - Essential (primary) hypertension Is this a current diagnosis for this admission?: Yes
--- NOTE | 2017-11-22 21:16 | PDOC PROGRESS REPORT ---
Subjective Progress Note for:: 11/22/17 Subjective:: Patient was seen by the bedside Reason For Visit: ACUTE RESPIRATORY FAILURE WITH HYPERCAPNIA, Physical Exam Vital Signs: Temp Pulse Resp BP Pulse Ox 98.5 F 110 H 16 130/76 H 98 11/22/17 19:51 11/22/17 19:51 11/22/17 19:51 11/22/17 19:51 11/22/17 19:51 Intake & Output 11/21/17 11/22/17 11/23/17 06:59 06:59 06:59 Intake Total 1743 2124 614 Output Total 925 200 Balance 818 1924 614 Weight 139.2 kg General appearance: PRESENT: morbidly obese Eye exam: PRESENT: PERRLA Respiratory exam: PRESENT: wheezes Cardiovascular exam: PRESENT: +S1, +S2 GI/Abdominal exam: PRESENT: soft Neurological exam: PRESENT: alert Results Laboratory Results: 11/22/17 05:30 11/22/17 05:30 11/22/17 11/22/17 05:30 05:30 WBC 8.4 RBC 4.54 Hgb 11.6 L Hct 36.1 MCV 79 L MCH 25.5 L MCHC 32.0 RDW 17.0 H Plt Count 193 Seg Neutrophils % 74.1 Lymphocytes % 20.5 Monocytes % 4.3 Eosinophils % 0.6 Basophils % 0.5 Absolute Neutrophils 6.2 Absolute Lymphocytes 1.7 Absolute Monocytes 0.4 Absolute Eosinophils 0.1 Absolute Basophils 0.0 Sodium 143.3 Potassium 3.6 Chloride 98 Carbon Dioxide 32 H Anion Gap 13 BUN 25 H Creatinine 0.88 Est GFR ( Amer) > 60 Est GFR (Non-Af Amer) > 60 Glucose 157 H Calcium 9.4 Total Bilirubin 0.4 AST 26 ALT 58 H Alkaline Phosphatase 55 Total Protein 7.1 Albumin 3.8 10/30/17 10/30/17 10/30/17 19:56 19:56 19:56 Creatine Kinase 75 CK-MB (CK-2) 2.28 Troponin I 0.447 NT-Pro-B Natriuret Pep 58740 H 10/31/17 10/31/17 10/31/17 01:42 01:42 07:16 Creatine Kinase 55 46 CK-MB (CK-2) 2.30 Troponin I 0.430 NT-Pro-B Natriuret Pep 10/31/17 11/01/17 11/14/17 07:16 05:01 17:55 Creatine Kinase CK-MB (CK-2) 2.18 Troponin I 0.399 0.340 NT-Pro-B Natriuret Pep 1800 H Impressions: PICC Line Insertion 10/31/17 00:00 IMPRESSION: SUCCESSFUL PLACEMENT OF A 5 FR DUAL LUMEN 46 CM PICC IN THE RIGHT BASILIC VEIN. Guidance Fluoroscopy 11/01/17 00:00 IMPRESSION: SUCCESSFUL PLACEMENT OF A 5 FR DUAL LUMEN 46 CM PICC IN THE RIGHT BASILIC VEIN. Interventional Vascular Procedure 11/01/17 00:00 IMPRESSION: SUCCESSFUL PLACEMENT OF A 5 FR DUAL LUMEN 46 CM PICC IN THE RIGHT BASILIC VEIN. Chest X-Ray 11/22/17 07:00 IMPRESSION: Improving pneumonia. 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
[2017-11-22] MEDS: ATORVASTATIN CALCIUM 10 MG TABLET PO SCH (22:06)
[2017-11-23] MEDS: IPRATROPIUM/ALBUTEROL 0.5-2.5 MG/3 ML AMPUL NEB SCH ×4 (02:01→20:01)
[2017-11-23 06:33] LABS: ABSOLUTE LYMPHOCYTES (AUTO) 1.5 10^3/uL (0.5-4.7); ABSOLUTE MONOCYTES (AUTO) 0.3 10^3/uL (0.1-1.4); ABSOLUTE NEUT (AUTO) 5.8 10^3/uL (1.7-8.2); BASOPHILS % (AUTO) 0.3 % (0-2); EOSINOPHILS % (AUTO) 0.2 % (0-6); HEMOGLOBIN 10.8 g/dL (12.0-15.5); LYMPHOCYTES % (AUTO) 19.3 % (13-45); MEAN CORPUSCULAR HEMOGLOBIN 25.3 pg (27.0-33.4); MEAN CORPUSCULAR HGB CONC 31.8 g/dL (32.0-36.0); MEAN CORPUSCULAR VOLUME 79 fl (80-97); MONOCYTES % (AUTO) 4.3 % (3-13); PLATELET COUNT 183 10^3/uL (150-450); RED BLOOD COUNT 4.29 10^6/uL (3.72-5.28); RED CELL DISTRIBUTION WIDTH 16.7 % (11.5-14.0); SEGMENTED NEUTROPHILS % (AUTO) 75.9 % (42-78); TOTAL CELLS COUNTED % (AUTO) 100 %; WHITE BLOOD COUNT 7.7 10^3/uL (4.0-10.5)
[2017-11-23 07:03] LABS: ALANINE AMINOTRANSFERASE 52 U/L (9-52); ALBUMIN 3.5 g/dL (3.5-5.0); ALKALINE PHOSPHATASE 53 U/L (38-126); ANION GAP 12 (5-19); ASPARTATE AMINO TRANSFERASE 22 U/L (14-36); BILIRUBIN,DIRECT 0.3 mg/dL (0.0-0.4); BILIRUBIN,TOTAL 0.3 mg/dL (0.2-1.3); BLOOD UREA NITROGEN 24 mg/dL (7-20); CALCIUM 8.7 mg/dL (8.4-10.2); CARBON DIOXIDE 31 mmol/L (22-30); CHLORIDE 97 mmol/L (98-107); GLUCOSE 174 mg/dL (75-110); POTASSIUM 3.2 mmol/L (3.6-5.0); SODIUM 139.6 mmol/L (137-145); TOTAL PROTEIN 6.4 g/dL (6.3-8.2)
[2017-11-23] MEDS: ACETYLCYSTEINE 20% SOLN 800 MG/4 ML VIAL.NEB NEB SCH ×2 (08:09→20:03)
[2017-11-23] MEDS: LEVOTHYROXINE SODIUM 0.075 MG TABLET PO SCH (09:57)
[2017-11-23] MEDS: METHYLPREDNISOLONE INJ 40 MG/1 ML SDV IV SCH ×2 (09:58→22:32)
[2017-11-23] MEDS: SERTRALINE HCL 50 MG TABLET PO SCH (09:58)
[2017-11-23] MEDS: GABAPENTIN 400 MG CAPSULE PO SCH ×2 (09:58→22:33)
[2017-11-23] MEDS: FUROSEMIDE INJ/PF 40 MG/4 ML SDV IV SCH (09:58)
[2017-11-23] MEDS: NORMAL SALINE 10 ML SDV (SCHEDULED) IV SCH ×2 (09:59→22:36)
[2017-11-23] MEDS: ENOXAPARIN SODIUM INJ 40 MG/0.4 ML DISP.SYRIN SUBCUT SCH (09:59)
[2017-11-23] MEDS: INSULIN LISPRO 100 UNIT/ML 3 ML VIAL SUBCUT PRN ×3 (10:01→18:25)
--- NOTE | 2017-11-23 11:36 | PDOC PROGRESS REPORT ---
Subjective Progress Note for:: 11/23/17 Subjective:: 24 hours status post extubation stable Reason For Visit: ACUTE RESPIRATORY FAILURE WITH HYPERCAPNIA, Physical Exam Vital Signs: Temp Pulse Resp BP Pulse Ox 98.4 F 90 12 134/64 H 93 11/23/17 04:13 11/23/17 08:09 11/23/17 08:09 11/23/17 04:13 11/23/17 08:09 Intake & Output 11/22/17 11/23/17 11/24/17 06:59 06:59 06:59 Intake Total 2124 1614 Output Total 200 Balance 1924 1614 General appearance: PRESENT: no acute distress, cooperative, disheveled, morbidly obese Head exam: PRESENT: atraumatic, normocephalic Eye exam: PRESENT: conjunctiva pale, EOMI Mouth exam: PRESENT: moist, tongue midline Teeth exam: PRESENT: edentulous Neck exam: ABSENT: carotid bruit, JVD, lymphadenopathy, thyromegaly, tracheal deviation, tracheostomy Respiratory exam: PRESENT: decreased breath sounds, prolonged expiratory phas, rhonchi, unlabored. ABSENT: stridor Cardiovascular exam: PRESENT: irregular rhythm, +S1, +S2 Pulses: PRESENT: normal radial pulses GI/Abdominal exam: PRESENT: normal bowel sounds, soft Extremities exam: PRESENT: pedal edema. ABSENT: calf tenderness, clubbing, joint swelling Musculoskeletal exam: ABSENT: deformity, dislocation Neurological exam: PRESENT: awake Psychiatric exam: PRESENT: flat affect Skin exam: PRESENT: dry, warm Results Laboratory Results: 11/23/17 05:30 11/23/17 05:30 11/23/17 11/23/17 05:30 05:30 WBC 7.7 RBC 4.29 Hgb 10.8 L Hct 34.0 L MCV 79 L MCH 25.3 L MCHC 31.8 L RDW 16.7 H Plt Count 183 Seg Neutrophils % 75.9 Lymphocytes % 19.3 Monocytes % 4.3 Eosinophils % 0.2 Basophils % 0.3 Absolute Neutrophils 5.8 Absolute Lymphocytes 1.5 Absolute Monocytes 0.3 Absolute Eosinophils 0.0 Absolute Basophils 0.0 Sodium 139.6 Potassium 3.2 L Chloride 97 L Carbon Dioxide 31 H Anion Gap 12 BUN 24 H Creatinine 0.93 Est GFR ( Amer) > 60 Est GFR (Non-Af Amer) 59 L Glucose 174 H Calcium 8.7 Total Bilirubin 0.3 AST 22 ALT 52 Alkaline Phosphatase 53 Total Protein 6.4 Albumin 3.5 11/21/17 06:00 Leg - Diabetic Ulcer Gram Stain - Final 11/21/17 06:00 Leg - Diabetic Ulcer Wound Culture - Final Pseudomonas Aeruginosa Skin Nancy 10/30/17 10/30/17 10/30/17 19:56 19:56 19:56 Creatine Kinase 75 CK-MB (CK-2) 2.28 Troponin I 0.447 NT-Pro-B Natriuret Pep 51051 H 10/31/17 10/31/17 10/31/17 01:42 01:42 07:16 Creatine Kinase 55 46 CK-MB (CK-2) 2.30 Troponin I 0.430 NT-Pro-B Natriuret Pep 10/31/17 11/01/17 11/14/17 07:16 05:01 17:55 Creatine Kinase CK-MB (CK-2) 2.18 Troponin I 0.399 0.340 NT-Pro-B Natriuret Pep 1800 H Impressions: PICC Line Insertion 10/31/17 00:00 IMPRESSION: SUCCESSFUL PLACEMENT OF A 5 FR DUAL LUMEN 46 CM PICC IN THE RIGHT BASILIC VEIN. Guidance Fluoroscopy 11/01/17 00:00 IMPRESSION: SUCCESSFUL PLACEMENT OF A 5 FR DUAL LUMEN 46 CM PICC IN THE RIGHT BASILIC VEIN. Interventional Vascular Procedure 11/01/17 00:00 IMPRESSION: SUCCESSFUL PLACEMENT OF A 5 FR DUAL LUMEN 46 CM PICC IN THE RIGHT BASILIC VEIN. Assessment & Plan - Diagnosis (1) Acute respiratory failure with hypoxia and hypercapnia Is this a current diagnosis for this admission?: Yes Plan: Stable (2) Morbid obesity with BMI of 70 and over, adult Is this a current diagnosis for this admission?: Yes (3) Obesity hypoventilation syndrome Is this a current diagnosis for this admission?: Yes Plan: increased pCO2 (4) MRSA pneumonia Qualifiers: Laterality: unspecified laterality Lung location: unspecified part of lung Qualified Code(s): J15.212 - Pneumonia due to Methicillin resistant Staphylococcus aureus Is this a current diagnosis for this admission?: Yes Plan: 11/04/17 15:15 Gram Stain - Final Tracheal Aspirate Sputum Culture - Final Mrsa (Meth Resis Staph Aureus) Normal Nancy Absent 10/30/17 23:40 Urine Culture - Final Catheterized Urine Escherichia Coli 10/30/17 16:05 Blood Culture - Final Blood Staphylococcus Epidermidis 10/07/17 10:10 Gram Stain - Final Leg - Left Wound Culture - Final Providencia Stuartii Pseudomonas Aeruginosa Enterococcus Faecalis(Group D) No Anaerobic Organisms 09/09/17 10:00 Gram Stain - Final Leg - Left Wound Culture - Final Enterococcus Faecalis(Group D) Pseudomonas Aeruginosa Peptostreptococcus Species 08/12/17 10:30 Gram Stain - Final Leg - Left Wound Culture - Final Pseudomonas Aeruginosa Enterococcus Faecalis(Group D) Mrsa (Meth Resis Staph Aureus) No Anaerobic Organisms (5) Hypertension Qualifiers: Hypertension type: essential hypertension Qualified Code(s): I10 - Essential (primary) hypertension Is this a current diagnosis for this admission?: Yes
--- NOTE | 2017-11-23 11:48 | RADIOLOGY REPORT (SQ) ---
EXAM DESCRIPTION: CHEST SINGLE VIEW COMPLETED DATE/TIME: 11/23/2017 11:25 am REASON FOR STUDY: pneumonia COMPARISON: AP chest 11/22/2017, 11/21/2017, 11/20/2017 EXAM PARAMETERS: NUMBER OF VIEWS: One view. TECHNIQUE: Single frontal radiographic view of the chest acquired. RADIATION DOSE: NA LIMITATIONS: None. FINDINGS: LUNGS AND PLEURA: Mild persistent patchy airspace disease in the lingula. Remainder of the lungs are clear. No pleural effusions or pneumothorax. MEDIASTINUM AND HILAR STRUCTURES: No masses. Contour normal. HEART AND VASCULAR STRUCTURES: Stable cardiomegaly BONES: No acute findings. HARDWARE: Right PICC line tip superior vena cava OTHER: No other significant finding. IMPRESSION: Persistent lingular airspace, atelectasis versus pneumonia. TECHNICAL DOCUMENTATION: JOB ID: [id number] [employer]- All Rights Reserved Reading location - IP/workstation name: [email or web address]
[2017-11-23] MEDS: POTASSIUM CHLORIDE 10 MEQ CAPSULE.ER PO SCH ×2 (18:08→22:33)
--- NOTE | 2017-11-23 19:20 | PDOC PROGRESS REPORT ---
Subjective Progress Note for:: 11/23/17 Subjective:: Patient was seen by the bedside the plan is to transfer the residential for rehabilitation but on auscultation of the chest she is to start crackles and she is somewhat drowsy, will discontinue IV fluids Reason For Visit: ACUTE RESPIRATORY FAILURE WITH HYPERCAPNIA, Physical Exam Vital Signs: Temp Pulse Resp BP Pulse Ox 98.3 F 71 20 124/66 97 11/23/17 16:49 11/23/17 16:49 11/23/17 16:49 11/23/17 16:49 11/23/17 16:49 Intake & Output 11/22/17 11/23/17 11/24/17 06:59 06:59 06:59 Intake Total 2124 1614 532 Output Total 200 Balance 1924 1614 532 General appearance: PRESENT: morbidly obese Eye exam: PRESENT: PERRLA Respiratory exam: PRESENT: rhonchi, wheezes Cardiovascular exam: PRESENT: +S1, +S2 GI/Abdominal exam: PRESENT: soft Neurological exam: PRESENT: alert Results Laboratory Results: 11/23/17 05:30 11/23/17 05:30 11/23/17 11/23/17 05:30 05:30 WBC 7.7 RBC 4.29 Hgb 10.8 L Hct 34.0 L MCV 79 L MCH 25.3 L MCHC 31.8 L RDW 16.7 H Plt Count 183 Seg Neutrophils % 75.9 Lymphocytes % 19.3 Monocytes % 4.3 Eosinophils % 0.2 Basophils % 0.3 Absolute Neutrophils 5.8 Absolute Lymphocytes 1.5 Absolute Monocytes 0.3 Absolute Eosinophils 0.0 Absolute Basophils 0.0 Sodium 139.6 Potassium 3.2 L Chloride 97 L Carbon Dioxide 31 H Anion Gap 12 BUN 24 H Creatinine 0.93 Est GFR ( Amer) > 60 Est GFR (Non-Af Amer) 59 L Glucose 174 H Calcium 8.7 Total Bilirubin 0.3 AST 22 ALT 52 Alkaline Phosphatase 53 Total Protein 6.4 Albumin 3.5 11/21/17 06:00 Leg - Diabetic Ulcer Gram Stain - Final 11/21/17 06:00 Leg - Diabetic Ulcer Wound Culture - Final Pseudomonas Aeruginosa Skin Nancy 10/30/17 10/30/17 10/30/17 19:56 19:56 19:56 Creatine Kinase 75 CK-MB (CK-2) 2.28 Troponin I 0.447 NT-Pro-B Natriuret Pep 55403 H 10/31/17 10/31/17 10/31/17 01:42 01:42 07:16 Creatine Kinase 55 46 CK-MB (CK-2) 2.30 Troponin I 0.430 NT-Pro-B Natriuret Pep 10/31/17 11/01/17 11/14/17 07:16 05:01 17:55 Creatine Kinase CK-MB (CK-2) 2.18 Troponin I 0.399 0.340 NT-Pro-B Natriuret Pep 1800 H Impressions: PICC Line Insertion 10/31/17 00:00 IMPRESSION: SUCCESSFUL PLACEMENT OF A 5 FR DUAL LUMEN 46 CM PICC IN THE RIGHT BASILIC VEIN. Guidance Fluoroscopy 11/01/17 00:00 IMPRESSION: SUCCESSFUL PLACEMENT OF A 5 FR DUAL LUMEN 46 CM PICC IN THE RIGHT BASILIC VEIN. Interventional Vascular Procedure 11/01/17 00:00 IMPRESSION: SUCCESSFUL PLACEMENT OF A 5 FR DUAL LUMEN 46 CM PICC IN THE RIGHT BASILIC VEIN. Chest X-Ray 11/23/17 07:00 IMPRESSION: Persistent lingular airspace, atelectasis versus pneumonia. 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
[2017-11-23] MEDS ORDERED: VANCOMYCIN HCL 1,250 MG in DEXTROSE 5%-WATER 250 ML IV SCH (22:00)
[2017-11-23] MEDS: ATORVASTATIN CALCIUM 10 MG TABLET PO SCH (22:33)
[2017-11-24] MEDS: IPRATROPIUM/ALBUTEROL 0.5-2.5 MG/3 ML AMPUL NEB SCH ×4 (02:10→19:43)
[2017-11-24 07:08] LABS: ABSOLUTE LYMPHOCYTES (AUTO) 2.6 10^3/uL (0.5-4.7); ABSOLUTE MONOCYTES (AUTO) 0.5 10^3/uL (0.1-1.4); ABSOLUTE NEUT (AUTO) 5.6 10^3/uL (1.7-8.2); BASOPHILS % (AUTO) 0.3 % (0-2); EOSINOPHILS % (AUTO) 0.4 % (0-6); HEMATOCRIT 36.3 % (36.0-47.0); HEMOGLOBIN 11.5 g/dL (12.0-15.5); LYMPHOCYTES % (AUTO) 29.4 % (13-45); MEAN CORPUSCULAR HEMOGLOBIN 25.4 pg (27.0-33.4); MEAN CORPUSCULAR HGB CONC 31.7 g/dL (32.0-36.0); MEAN CORPUSCULAR VOLUME 80 fl (80-97); MONOCYTES % (AUTO) 5.4 % (3-13); PLATELET COUNT 196 10^3/uL (150-450); RED BLOOD COUNT 4.53 10^6/uL (3.72-5.28); RED CELL DISTRIBUTION WIDTH 17.3 % (11.5-14.0); SEGMENTED NEUTROPHILS % (AUTO) 64.5 % (42-78); TOTAL CELLS COUNTED % (AUTO) 100 %; WHITE BLOOD COUNT 8.7 10^3/uL (4.0-10.5)
[2017-11-24 07:25] LABS: ALANINE AMINOTRANSFERASE 50 U/L (9-52); ALBUMIN 3.7 g/dL (3.5-5.0); ALKALINE PHOSPHATASE 51 U/L (38-126); ANION GAP 11 (5-19); ASPARTATE AMINO TRANSFERASE 21 U/L (14-36); BILIRUBIN,DIRECT 0.2 mg/dL (0.0-0.4); BILIRUBIN,TOTAL 0.2 mg/dL (0.2-1.3); BLOOD UREA NITROGEN 28 mg/dL (7-20); CALCIUM 9.7 mg/dL (8.4-10.2); CARBON DIOXIDE 34 mmol/L (22-30); CHLORIDE 102 mmol/L (98-107); GLUCOSE 166 mg/dL (75-110); SODIUM 146.9 mmol/L (137-145)
[2017-11-24] MEDS: ACETYLCYSTEINE 20% SOLN 800 MG/4 ML VIAL.NEB NEB SCH ×2 (08:03→19:43)
[2017-11-24] MEDS: SERTRALINE HCL 50 MG TABLET PO SCH (10:21)
[2017-11-24] MEDS: GABAPENTIN 400 MG CAPSULE PO SCH ×2 (10:21→21:20)
[2017-11-24] MEDS: LEVOTHYROXINE SODIUM 0.075 MG TABLET PO SCH (10:21)
[2017-11-24] MEDS: NORMAL SALINE 10 ML SDV (SCHEDULED) IV SCH ×2 (10:22→21:16)
[2017-11-24] MEDS: METHYLPREDNISOLONE INJ 40 MG/1 ML SDV IV SCH ×2 (10:22→21:13)
[2017-11-24] MEDS: FUROSEMIDE INJ/PF 40 MG/4 ML SDV IV SCH (10:23)
[2017-11-24] MEDS: ENOXAPARIN SODIUM INJ 40 MG/0.4 ML DISP.SYRIN SUBCUT SCH (10:23)
--- NOTE | 2017-11-24 10:52 | RADIOLOGY REPORT (SQ) ---
EXAM DESCRIPTION: CHEST SINGLE VIEW COMPLETED DATE/TIME: 11/24/2017 9:46 am REASON FOR STUDY: pneumonia COMPARISON: Chest films 07/19/2014, 01/24/2017, 11/21/2017, 11/22/2017 EXAM PARAMETERS: NUMBER OF VIEWS: One view. TECHNIQUE: Single frontal radiographic view of the chest acquired. RADIATION DOSE: NA LIMITATIONS: [employer] portable film, rotated toward the [place] orientation FINDINGS: LUNGS AND PLEURA: No opacities, masses or pneumothorax. No pleural effusion. MEDIASTINUM AND HILAR STRUCTURES: No masses. Contour normal. HEART AND VASCULAR STRUCTURES: Cardiac silhouette size accentuated by patient positioning BONES: No acute findings. HARDWARE: EKG leads over the chest OTHER: No other significant finding. IMPRESSION: No acute infiltrates TECHNICAL DOCUMENTATION: JOB ID: [id number] [employer]- All Rights Reserved Reading location - IP/workstation name: [email or web address]
--- NOTE | 2017-11-24 15:40 | PDOC PROGRESS REPORT ---
Subjective Progress Note for:: 11/24/17 Subjective:: stable Reason For Visit: ACUTE RESPIRATORY FAILURE WITH HYPERCAPNIA, Physical Exam Vital Signs: Temp Pulse Resp BP Pulse Ox 98.3 F 76 16 151/87 H 98 11/24/17 07:51 11/24/17 14:00 11/24/17 14:00 11/24/17 07:51 11/24/17 14:00 Intake & Output 11/23/17 11/24/17 11/25/17 06:59 06:59 06:59 Intake Total 1614 1242 Output Total 0 Balance 1614 1242 Weight 160.8 kg General appearance: PRESENT: no acute distress, disheveled, morbidly obese Head exam: PRESENT: atraumatic, normocephalic Eye exam: PRESENT: conjunctiva pale, EOMI. ABSENT: nystagmus, periorbital swelling, scleral icterus Mouth exam: PRESENT: dry mucosa, neck supple, tongue midline Neck exam: ABSENT: carotid bruit, JVD, lymphadenopathy, thyromegaly, tracheal deviation, tracheostomy Respiratory exam: PRESENT: decreased breath sounds, prolonged expiratory phas, rales, rhonchi, unlabored Cardiovascular exam: PRESENT: RRR, +S1, +S2 Pulses: PRESENT: normal radial pulses GI/Abdominal exam: PRESENT: hypoactive bowel sounds, soft Extremities exam: PRESENT: pedal edema. ABSENT: clubbing, joint swelling Musculoskeletal exam: ABSENT: deformity, dislocation Neurological exam: PRESENT: awake Psychiatric exam: PRESENT: flat affect Skin exam: PRESENT: dry, warm Results Laboratory Results: 11/24/17 06:45 11/24/17 06:45 11/24/17 11/24/17 06:45 06:45 WBC 8.7 RBC 4.53 Hgb 11.5 L Hct 36.3 MCV 80 MCH 25.4 L MCHC 31.7 L RDW 17.3 H Plt Count 196 Seg Neutrophils % 64.5 Lymphocytes % 29.4 Monocytes % 5.4 Eosinophils % 0.4 Basophils % 0.3 Absolute Neutrophils 5.6 Absolute Lymphocytes 2.6 Absolute Monocytes 0.5 Absolute Eosinophils 0.0 Absolute Basophils 0.0 Sodium 146.9 H Potassium 4.0 Chloride 102 Carbon Dioxide 34 H Anion Gap 11 BUN 28 H Creatinine 1.00 Est GFR ( Amer) > 60 Est GFR (Non-Af Amer) 55 L Glucose 166 H Calcium 9.7 Total Bilirubin 0.2 AST 21 ALT 50 Alkaline Phosphatase 51 Total Protein 7.0 Albumin 3.7 10/30/17 10/30/17 10/30/17 19:56 19:56 19:56 Creatine Kinase 75 CK-MB (CK-2) 2.28 Troponin I 0.447 NT-Pro-B Natriuret Pep 08096 H 10/31/17 10/31/17 10/31/17 01:42 01:42 07:16 Creatine Kinase 55 46 CK-MB (CK-2) 2.30 Troponin I 0.430 NT-Pro-B Natriuret Pep 10/31/17 11/01/17 11/14/17 07:16 05:01 17:55 Creatine Kinase CK-MB (CK-2) 2.18 Troponin I 0.399 0.340 NT-Pro-B Natriuret Pep 1800 H Impressions: PICC Line Insertion 10/31/17 00:00 IMPRESSION: SUCCESSFUL PLACEMENT OF A 5 FR DUAL LUMEN 46 CM PICC IN THE RIGHT BASILIC VEIN. Guidance Fluoroscopy 11/01/17 00:00 IMPRESSION: SUCCESSFUL PLACEMENT OF A 5 FR DUAL LUMEN 46 CM PICC IN THE RIGHT BASILIC VEIN. Interventional Vascular Procedure 11/01/17 00:00 IMPRESSION: SUCCESSFUL PLACEMENT OF A 5 FR DUAL LUMEN 46 CM PICC IN THE RIGHT BASILIC VEIN. Chest X-Ray 11/24/17 07:00 IMPRESSION: No acute infiltrates Assessment & Plan - Diagnosis (1) Acute respiratory failure with hypoxia and hypercapnia Is this a current diagnosis for this admission?: Yes Plan: Stable (2) Morbid obesity with BMI of 70 and over, adult Is this a current diagnosis for this admission?: Yes (3) Obesity hypoventilation syndrome Is this a current diagnosis for this admission?: Yes Plan: increased pCO2 (4) MRSA pneumonia Qualifiers: Laterality: unspecified laterality Lung location: unspecified part of lung Qualified Code(s): J15.212 - Pneumonia due to Methicillin resistant Staphylococcus aureus Is this a current diagnosis for this admission?: Yes (5) Hypertension Qualifiers: Hypertension type: essential hypertension Qualified Code(s): I10 - Essential (primary) hypertension Is this a current diagnosis for this admission?: Yes
[2017-11-24] MEDS: ATORVASTATIN CALCIUM 10 MG TABLET PO SCH (21:13)
--- NOTE | 2017-11-24 21:22 | PDOC TRANSFER SUMMARY ---
General - Admit/Disc Date/PCP Admission Date/Primary Care Provider: 10/30/17 19:20 AYALA FARIAS MD Discharge Date: 11/25/17 - Discharge Diagnosis (1) Acute respiratory failure with hypoxia and hypercapnia Is this a current diagnosis for this admission?: Yes (2) Acute diastolic (congestive) heart failure Is this a current diagnosis for this admission?: Yes (3) Morbid obesity with BMI of 70 and over, adult Is this a current diagnosis for this admission?: Yes (4) Obesity hypoventilation syndrome Is this a current diagnosis for this admission?: Yes (5) Elevated troponin Is this a current diagnosis for this admission?: Yes (6) Chronic venous hypertension (idiopathic) with ulcer and inflammation of bilateral lower extremity Is this a current diagnosis for this admission?: Yes (7) Right middle lobe pneumonia Is this a current diagnosis for this admission?: Yes (8) MRSA pneumonia Is this a current diagnosis for this admission?: Yes (9) E. coli UTI (urinary tract infection) Is this a current diagnosis for this admission?: Yes (10) Diabetes mellitus type 2 in obese Is this a current diagnosis for this admission?: Yes (11) Hyperlipidemia Is this a current diagnosis for this admission?: Yes (12) Hypertension Is this a current diagnosis for this admission?: Yes (13) Sepsis Is this a current diagnosis for this admission?: Yes (14) Obstructive sleep apnea Is this a current diagnosis for this admission?: Yes Summary: She has obstructive sleep apnea, she uses CPAP for sleep at night - Additional Information Resuscitation Status: Full Code Discharge Diet: Diabetic Home Medications: Atorvastatin Calcium [Lipitor 10 mg Tablet] 10 mg PO QHS 10/31/17 Ergocalciferol (Vitamin D2) [Drisdol 50,000 unit (1.25MG) Capsule] 50,000 unit PO SEGURA@1000 10/31/17 Gabapentin [Neurontin 400 mg Capsule] 800 mg PO BID 10/31/17 Glimepiride [Amaryl] 2 mg PO QAM 10/31/17 Levothyroxine Sodium [Synthroid 0.075 mg Tablet] 0.075 mg PO Q6AM 10/31/17 Lisinopril/Hydrochlorothiazide [Zestoretic 20-25 mg Tablet] 1 tab PO DAILY 10/31 Sertraline HCl [Zoloft] 100 mg PO DAILY 10/31/17 Dextrose 50%-Water [Dextrose Inj 50% Syringe (25 gm/50 ml)] 25 gm IV PRN PRN disp.syrin 11/24/17 Dextrose [Glutose 40% Gel 15 gm Tube] 15 gm PO PRN PRN tube 11/24/17 Dextrose [Glutose 40% Gel 15 gm Tube] 30 gm PO PRN PRN tube 11/24/17 Ergocalciferol (Vitamin D2) [Drisdol 50,000 unit (1.25MG) Capsule] 50,000 unit PO SEGURA@1000 capsule 11/24/17 Furosemide [Lasix Inj/Pf 40 mg/4 ml Sdv] 40 mg IV DAILY vial 11/24/17 Insulin Lispro [Humalog Insulin (Lispro) 100 unit/mL] 0 - 12 unit SUBCUT Q6HP PRN unit 11/24/17 Ipratropium/Albuterol Sulfate [Duoneb 3 ml Ampul] 3 ml NEB RTQ6 vial.neb Levothyroxine Sodium [Synthroid 0.075 mg Tablet] 0.075 mg PO QAM tablet Oxycodone HCl [Oxy-Ir 5 mg Tablet] 5 mg PO Q6HP PRN tablet 11/24/17 History of Present Illness Admission Date/PCP: 10/30/17 19:20 AYALA FARIAS MD History of Present Illness: SERINA LEE is a 71 year old female,I received a call from patient's daughter that patient was stuporous, difficult to arouse I immediately advised her to transfer her to the emergency room, she stated she could not get her transferred to her vehicle I did advise her to call 911. She was transferred by EMS to the emergency room unresponsive. In the emergency room she was evaluated, there was a history of cough for 2 weeks, she was given bronchodilator, Solu-Medrol, she was found to have hypercapnic respiratory failure, she was intubated in emergency room. She is morbidly obese, the body mass index is 84, she is only 5 feet tall, she weighed 195kg, the initial vent setting for tidal volume was based on 6 cm/kg ideal body weight, the ideal body weight for this height was 50 kg. She has a history of chronic diastolic heart failure, chest x-ray suggests pulmonary edema.No history could be obtained from this patient.This patient is massively obese, she has combined hypercapnic and hypoxemic respiratory failure, is most likely from combination of factors including obesity hypoventilation syndrome, acute bronchitis, acute on chronic diastolic heart failure, the troponin is elevated this could represent enzyme leak from cardiac muscles as a result of hypercapnia and hypoxemia or it could be a manifestation of non-ST AL, Hospital Course Hospital Course: She was admitted for the management of acute respiratory failure due to combination of acute diastolic heart failure, MRSA pneumonia, morbid obesity. She was managed in intensive care unit she required mechanical ventilation IV antibiotic with vancomycin, Zosyn, Levaquin, she was seen in consultation by pulmonary Dr. Valdez, and Dr. Lott. She had elevated troponin, this was felt to be due to sepsis syndrome rather than acute myocardial infarction She also has chronic leg ulcer on the left leg this was evaluated by the surgeon, Unaboot was recommended she had a Unna boot change twice a week.There was electrolytes derangement including hypokalemia, she required electrolyte replacement therapy.Patient improved with treatment, she was deconditioned the plan is to transfer to long term for rehabilitation Physical Exam Vital Signs: Temp Pulse Resp BP Pulse Ox 98.2 F 85 20 129/88 H 98 11/24/17 19:43 11/24/17 19:43 11/24/17 19:43 11/24/17 19:43 11/24/17 19:43 Intake & Output 11/23/17 11/24/17 11/25/17 06:59 06:59 06:59 Intake Total 1614 1242 237 Output Total 0 Balance 1614 1242 237 Weight 160.8 kg Head exam: PRESENT: atraumatic, normocephalic Eye exam: PRESENT: conjunctiva pink, EOMI, PERRLA Ear exam: PRESENT: normal external ear exam Mouth exam: PRESENT: moist, tongue midline Respiratory exam: PRESENT: clear to auscultation kurt Cardiovascular exam: PRESENT: RRR Pulses: PRESENT: normal dorsalis pedis pul Vascular exam: PRESENT: normal capillary refill GI/Abdominal exam: PRESENT: normal bowel sounds, soft Rectal exam: PRESENT: deferred Extremities exam: PRESENT: full ROM Neurological exam: PRESENT: altered, CN II-XII grossly intact Psychiatric exam: PRESENT: appropriate affect, normal mood Skin exam: PRESENT: dry, intact, warm Results Laboratory Results: 11/24/17 06:45 11/24/17 06:45 11/24/17 11/24/17 06:45 06:45 WBC 8.7 RBC 4.53 Hgb 11.5 L Hct 36.3 MCV 80 MCH 25.4 L MCHC 31.7 L RDW 17.3 H Plt Count 196 Seg Neutrophils % 64.5 Lymphocytes % 29.4 Monocytes % 5.4 Eosinophils % 0.4 Basophils % 0.3 Absolute Neutrophils 5.6 Absolute Lymphocytes 2.6 Absolute Monocytes 0.5 Absolute Eosinophils 0.0 Absolute Basophils 0.0 Sodium 146.9 H Potassium 4.0 Chloride 102 Carbon Dioxide 34 H Anion Gap 11 BUN 28 H Creatinine 1.00 Est GFR ( Amer) > 60 Est GFR (Non-Af Amer) 55 L Glucose 166 H Calcium 9.7 Total Bilirubin 0.2 AST 21 ALT 50 Alkaline Phosphatase 51 Total Protein 7.0 Albumin 3.7 10/30/17 10/30/17 10/30/17 19:56 19:56 19:56 Creatine Kinase 75 CK-MB (CK-2) 2.28 Troponin I 0.447 NT-Pro-B Natriuret Pep 93528 H 10/31/17 10/31/17 10/31/17 01:42 01:42 07:16 Creatine Kinase 55 46 CK-MB (CK-2) 2.30 Troponin I 0.430 NT-Pro-B Natriuret Pep 10/31/17 11/01/17 11/14/17 07:16 05:01 17:55 Creatine Kinase CK-MB (CK-2) 2.18 Troponin I 0.399 0.340 NT-Pro-B Natriuret Pep 1800 H Impressions: PICC Line Insertion 10/31/17 00:00 IMPRESSION: SUCCESSFUL PLACEMENT OF A 5 FR DUAL LUMEN 46 CM PICC IN THE RIGHT BASILIC VEIN. Guidance Fluoroscopy 11/01/17 00:00 IMPRESSION: SUCCESSFUL PLACEMENT OF A 5 FR DUAL LUMEN 46 CM PICC IN THE RIGHT BASILIC VEIN. Interventional Vascular Procedure 11/01/17 00:00 IMPRESSION: SUCCESSFUL PLACEMENT OF A 5 FR DUAL LUMEN 46 CM PICC IN THE RIGHT BASILIC VEIN. Chest X-Ray 11/24/17 07:00 IMPRESSION: No acute infiltrates Qualifiers - * PATIENT BEING DISCHARGED WITH ANY OF THE FOLLOWING DIAGNOSIS: No Plan Discharge Plan: She we require CPAP at night for sleep
[2017-11-25] MEDS: IPRATROPIUM/ALBUTEROL 0.5-2.5 MG/3 ML AMPUL NEB SCH ×3 (01:33→14:07)
[2017-11-25 07:28] LABS: ABSOLUTE EOSINOPHILS # (AUTO) 0.1 10^3/uL (0.0-0.6); ABSOLUTE MONOCYTES (AUTO) 0.6 10^3/uL (0.1-1.4); ABSOLUTE NEUT (AUTO) 5.2 10^3/uL (1.7-8.2); BASOPHILS % (AUTO) 0.5 % (0-2); EOSINOPHILS % (AUTO) 0.8 % (0-6); HEMOGLOBIN 11.5 g/dL (12.0-15.5); LYMPHOCYTES % (AUTO) 33.5 % (13-45); MEAN CORPUSCULAR HEMOGLOBIN 25.6 pg (27.0-33.4); MEAN CORPUSCULAR VOLUME 80 fl (80-97); MONOCYTES % (AUTO) 6.3 % (3-13); PLATELET COUNT 197 10^3/uL (150-450); RED CELL DISTRIBUTION WIDTH 17.2 % (11.5-14.0); SEGMENTED NEUTROPHILS % (AUTO) 58.9 % (42-78); TOTAL CELLS COUNTED % (AUTO) 100 %; WHITE BLOOD COUNT 8.8 10^3/uL (4.0-10.5)
[2017-11-25 07:48] LABS: ALANINE AMINOTRANSFERASE 47 U/L (9-52); ALBUMIN 3.9 g/dL (3.5-5.0); ALKALINE PHOSPHATASE 48 U/L (38-126); ANION GAP 10 (5-19); ASPARTATE AMINO TRANSFERASE 19 U/L (14-36); BILIRUBIN,DIRECT 0.2 mg/dL (0.0-0.4); BILIRUBIN,TOTAL 0.2 mg/dL (0.2-1.3); BLOOD UREA NITROGEN 31 mg/dL (7-20); CALCIUM 9.8 mg/dL (8.4-10.2); CARBON DIOXIDE 36 mmol/L (22-30); CHLORIDE 101 mmol/L (98-107); GLUCOSE 160 mg/dL (75-110); SODIUM 147.4 mmol/L (137-145); TOTAL PROTEIN 7.1 g/dL (6.3-8.2)
[2017-11-25] MEDS: ACETYLCYSTEINE 20% SOLN 800 MG/4 ML VIAL.NEB NEB SCH (07:56)
[2017-11-25] MEDS: FUROSEMIDE INJ/PF 40 MG/4 ML SDV IV SCH (10:06)
[2017-11-25] MEDS: GABAPENTIN 400 MG CAPSULE PO SCH (10:08)
[2017-11-25] MEDS: SERTRALINE HCL 50 MG TABLET PO SCH (10:08)
[2017-11-25] MEDS: LEVOTHYROXINE SODIUM 0.075 MG TABLET PO SCH (10:08)
[2017-11-25] MEDS: METHYLPREDNISOLONE INJ 40 MG/1 ML SDV IV SCH (10:13)
[2017-11-25] MEDS: ENOXAPARIN SODIUM INJ 40 MG/0.4 ML DISP.SYRIN SUBCUT SCH (10:13)
[2017-11-25] MEDS: NORMAL SALINE 10 ML SDV (SCHEDULED) IV SCH (10:13)
--- NOTE | 2017-11-25 10:57 | RADIOLOGY REPORT (SQ) ---
EXAM DESCRIPTION: CHEST SINGLE VIEW COMPLETED DATE/TIME: 11/25/2017 10:37 am REASON FOR STUDY: pneumonia COMPARISON: 11/24/2017. NUMBER OF VIEWS: One view. TECHNIQUE: Single frontal radiographic view of the chest acquired. LIMITATIONS: None. FINDINGS: LUNGS AND PLEURA: No opacities, masses or pneumothorax. No pleural effusion. MEDIASTINUM AND HILAR STRUCTURES: No masses. Contour normal. HEART AND VASCULAR STRUCTURES: Heart enlarged without failure. Normal vasculature. BONES: No acute findings. HARDWARE: PICC line. OTHER: No other significant finding. IMPRESSION: HEART ENLARGED WITHOUT FAILURE. NO OTHER SIGNIFICANT RADIOGRAPHIC FINDING IN THE CHEST. TECHNICAL DOCUMENTATION: JOB ID: [id number] [employer]- All Rights Reserved Reading location - IP/workstation name: [email or web address]
[2017-11-25 16:48] VITALS: BP 120/51
[2017-11-25] MEDS: INSULIN LISPRO 100 UNIT/ML 3 ML VIAL SUBCUT PRN (18:03)
--- NOTE | 2018-01-15 19:57 | PDOC PROGRESS REPORT ---
Subjective Progress Note for:: 11/25/17 Subjective:: stable Reason For Visit: ACUTE RESPIRATORY FAILURE WITH HYPERCAPNIA, Physical Exam Vital Signs: Temp Pulse Resp BP Pulse Ox 98.7 F 82 18 120/51 L 93 11/25/17 15:57 11/25/17 15:57 11/25/17 15:57 11/25/17 15:57 11/25/17 15:57 General appearance: PRESENT: no acute distress, disheveled, morbidly obese Head exam: PRESENT: atraumatic, normocephalic Eye exam: PRESENT: conjunctiva pale, EOMI Mouth exam: PRESENT: dry mucosa, neck supple, tongue midline Neck exam: ABSENT: carotid bruit, JVD, lymphadenopathy, thyromegaly, tracheal deviation, tracheostomy Respiratory exam: PRESENT: decreased breath sounds, prolonged expiratory phas, rhonchi, unlabored. ABSENT: retraction, stridor Cardiovascular exam: PRESENT: RRR, +S1, +S2 Pulses: PRESENT: normal radial pulses GI/Abdominal exam: PRESENT: soft. ABSENT: tenderness Extremities exam: ABSENT: calf tenderness, clubbing, joint swelling Musculoskeletal exam: ABSENT: deformity, dislocation Neurological exam: PRESENT: awake Psychiatric exam: PRESENT: flat affect Skin exam: PRESENT: dry, warm Results Laboratory Results: 11/25/17 06:56 11/25/17 06:56 10/30/17 10/30/17 10/30/17 19:56 19:56 19:56 Creatine Kinase 75 CK-MB (CK-2) 2.28 Troponin I 0.447 NT-Pro-B Natriuret Pep 35803 H 10/31/17 10/31/17 10/31/17 01:42 01:42 07:16 Creatine Kinase 55 46 CK-MB (CK-2) 2.30 Troponin I 0.430 NT-Pro-B Natriuret Pep 10/31/17 11/01/17 11/14/17 07:16 05:01 17:55 Creatine Kinase CK-MB (CK-2) 2.18 Troponin I 0.399 0.340 NT-Pro-B Natriuret Pep 1800 H Impressions: PICC Line Insertion 10/31/17 00:00 IMPRESSION: SUCCESSFUL PLACEMENT OF A 5 FR DUAL LUMEN 46 CM PICC IN THE RIGHT BASILIC VEIN. Guidance Fluoroscopy 11/01/17 00:00 IMPRESSION: SUCCESSFUL PLACEMENT OF A 5 FR DUAL LUMEN 46 CM PICC IN THE RIGHT BASILIC VEIN. Interventional Vascular Procedure 11/01/17 00:00 IMPRESSION: SUCCESSFUL PLACEMENT OF A 5 FR DUAL LUMEN 46 CM PICC IN THE RIGHT BASILIC VEIN. Chest X-Ray 11/25/17 07:00 IMPRESSION: HEART ENLARGED WITHOUT FAILURE. NO OTHER SIGNIFICANT RADIOGRAPHIC FINDING IN THE CHEST. Assessment & Plan - Diagnosis (1) Acute respiratory failure with hypoxia and hypercapnia Is this a current diagnosis for this admission?: Yes Plan: Stable (2) Morbid obesity with BMI of 70 and over, adult Is this a current diagnosis for this admission?: Yes (3) Obesity hypoventilation syndrome Is this a current diagnosis for this admission?: Yes Plan: increased pCO2 (4) MRSA pneumonia Qualifiers: Laterality: unspecified laterality Lung location: unspecified part of lung Qualified Code(s): J15.212 - Pneumonia due to Methicillin resistant Staphylococcus aureus Is this a current diagnosis for this admission?: Yes Plan: 11/04/17 15:15 Gram Stain - Final Tracheal Aspirate Sputum Culture - Final Mrsa (Meth Resis Staph Aureus) Normal Nancy Absent 10/30/17 23:40 Urine Culture - Final Catheterized Urine Escherichia Coli 10/30/17 16:05 Blood Culture - Final Blood Staphylococcus Epidermidis 10/07/17 10:10 Gram Stain - Final Leg - Left Wound Culture - Final Providencia Stuartii Pseudomonas Aeruginosa Enterococcus Faecalis(Group D) No Anaerobic Organisms 09/09/17 10:00 Gram Stain - Final Leg - Left Wound Culture - Final Enterococcus Faecalis(Group D) Pseudomonas Aeruginosa Peptostreptococcus Species 08/12/17 10:30 Gram Stain - Final Leg - Left Wound Culture - Final Pseudomonas Aeruginosa Enterococcus Faecalis(Group D) Mrsa (Meth Resis Staph Aureus) No Anaerobic Organisms (5) Hypertension Qualifiers: Hypertension type: essential hypertension Qualified Code(s): I10 - Essential (primary) hypertension Is this a current diagnosis for this admission?: Yes
== END 2017-11-25 19:10 | DRG 166 ==
LOC: ER 15:47 → EH 19:20 → ICU 22:30 → 3N 11-18 16:53
PROVIDERS: ADMIT Internal Medicine; ATTEND Internal Medicine
PROC: 5A1955Z Respiratory Ventilation, Greater than 96 Consecutive Hours (ICD-10-PCS; 2017-10-30)
PROC: 5A09557 Assistance with Respiratory Ventilation, Greater than 96 Consecutive Hours, Continuous Positive Airway Pressure (ICD-10-PCS; 2017-10-30)
PROC: 0BH17EZ Insertion of Endotracheal Airway into Trachea, Via Natural or Artificial Opening (ICD-10-PCS; 2017-10-30)
PROC: 3E0F73Z Introduction of Anti-inflammatory into Respiratory Tract, Via Natural or Artificial Opening (ICD-10-PCS; 2017-10-30)
PROC: 02HV33Z Insertion of Infusion Device into Superior Vena Cava, Percutaneous Approach (ICD-10-PCS; 2017-11-01)
PROC: B548ZZA Ultrasonography of Superior Vena Cava, Guidance (ICD-10-PCS; 2017-11-01)
PROC: B518ZZA Fluoroscopy of Superior Vena Cava, Guidance (ICD-10-PCS; 2017-11-01)
PROC: 0B9J8ZX Drainage of Left Lower Lung Lobe, Via Natural or Artificial Opening Endoscopic, Diagnostic (ICD-10-PCS; principal; 2017-11-12)
DX: J96.02 Acute respiratory failure with hypercapnia (principal); J15.212 Pneumonia due to Methicillin resistant Staphylococcus aureus; I50.33 Acute on chronic diastolic (congestive) heart failure; E66.2 Morbid (severe) obesity with alveolar hypoventilation; Z68.45 Body mass index [BMI] 70 or greater, adult; I87.333 Chronic venous hypertension (idiopathic) with ulcer and inflammation of bilateral lower extremity; N39.0 Urinary tract infection, site not specified; I13.0 Hypertensive heart and chronic kidney disease with heart failure and stage 1 through stage 4 chronic kidney disease, or unspecified chronic kidney disease; N18.4 Chronic kidney disease, stage 4 (severe); J44.0 Chronic obstructive pulmonary disease with (acute) lower respiratory infection; J96.01 Acute respiratory failure with hypoxia; E11.22 Type 2 diabetes mellitus with diabetic chronic kidney disease; Z78.1 Physical restraint status; B96.20 Unspecified Escherichia coli [E. coli] as the cause of diseases classified elsewhere; E78.00 Pure hypercholesterolemia, unspecified; E87.6 Hypokalemia; E11.51 Type 2 diabetes mellitus with diabetic peripheral angiopathy without gangrene; K21.9 Gastro-esophageal reflux disease without esophagitis; M19.90 Unspecified osteoarthritis, unspecified site; F32.9 Major depressive disorder, single episode, unspecified; J44.9 Chronic obstructive pulmonary disease, unspecified; E86.0 Dehydration; Z79.4 Long term (current) use of insulin; Z79.899 Other long term (current) drug therapy; Z86.14 Personal history of Methicillin resistant Staphylococcus aureus infection; Z80.9 Family history of malignant neoplasm, unspecified; Z82.49 Family history of ischemic heart disease and other diseases of the circulatory system; Z88.8 Allergy status to other drugs, medicaments and biological substances
CPT/HCPCS: 31500; 36415; 36569; 36600; 71045; 76937; 77001; 80048; 80053; 80061; 80202; 81001; 82140; 82150; 82271; 82550; 82553; 82565; 82803; 82962; 83036; 83605; 83690; 83735; 83880; 84100; 84132; 84439; 84443; 84478; 84484; 85025; 85610; 85730; 87015; 87040; 87070; 87077; 87086; 87088; 87101; 87116; 87186; 87205; 87206; 87493; 89050; 93005; 93010; 93306; 94002; 94003; 94640; 94660; 94667; 94668; 94799; 96365; 99291; G8978-GP; G8979-GP; J0330; J0692; J1250; J1642; J1650; J1815; J1940; J1956; J2270; J2543; J2704; J2920; J3370; J3475; J3480; J3490; J7030; J7060; J7620; S0164

== ENCOUNTER → 2018-03-01 | Outpatient (CLI) | payer MEDICARE, OTHER | LOC: RAD 14:51 | PROVIDERS: ATTEND Internal Medicine | DX: M25.511 Pain in right shoulder (principal) ==

== ENCOUNTER → 2018-03-23 | Outpatient (CLI) | payer MEDICARE, OTHER ==
[2018-03-23 11:21] LABS: ABSOLUTE BASOPHILS # (AUTO) 0.1 10^3/uL (0.0-0.2); ABSOLUTE EOSINOPHILS # (AUTO) 0.3 10^3/uL (0.0-0.6); ABSOLUTE LYMPHOCYTES (AUTO) 3.3 10^3/uL (0.5-4.7); ABSOLUTE MONOCYTES (AUTO) 0.6 10^3/uL (0.1-1.4); ABSOLUTE NEUT (AUTO) 5.5 10^3/uL (1.7-8.2); BASOPHILS % (AUTO) 0.7 % (0-2); EOSINOPHILS % (AUTO) 2.6 % (0-6); HEMATOCRIT 32.5 % (36.0-47.0); HEMOGLOBIN 10.7 g/dL (12.0-15.5); MEAN CORPUSCULAR HEMOGLOBIN 26.4 pg (27.0-33.4); MEAN CORPUSCULAR VOLUME 80 fl (80-97); MONOCYTES % (AUTO) 5.9 % (3-13); PLATELET COUNT 242 10^3/uL (150-450); RED BLOOD COUNT 4.06 10^6/uL (3.72-5.28); SEGMENTED NEUTROPHILS % (AUTO) 56.8 % (42-78); TOTAL CELLS COUNTED % (AUTO) 100 %; WHITE BLOOD COUNT 9.7 10^3/uL (4.0-10.5)
[2018-03-23 11:53] LABS: ALANINE AMINOTRANSFERASE 10 U/L (9-52); ALBUMIN 4.1 g/dL (3.5-5.0); ALKALINE PHOSPHATASE 86 U/L (38-126); ANION GAP 10 (5-19); ASPARTATE AMINO TRANSFERASE 14 U/L (14-36); BILIRUBIN,DIRECT 0.3 mg/dL (0.0-0.4); BILIRUBIN,TOTAL 0.3 mg/dL (0.2-1.3); BLOOD UREA NITROGEN 50 mg/dL (7-20); C-REACTIVE PROTEIN 26.2 mg/L (<10.0); CALCIUM 9.3 mg/dL (8.4-10.2); CARBON DIOXIDE 28 mmol/L (22-30); CHLORIDE 105 mmol/L (98-107); GLUCOSE 96 mg/dL (75-110); POTASSIUM 4.8 mmol/L (3.6-5.0); SODIUM 143.2 mmol/L (137-145); TOTAL PROTEIN 7.8 g/dL (6.3-8.2)
[2018-03-23 11:58] LABS: ERYTHROCYTE SEDIMENTATION RATE 67 mm/hr (0-30)
--- NOTE | 2018-03-23 13:02 | RADIOLOGY REPORT (SQ) ---
EXAM DESCRIPTION: TIBIA FIBULA LEFT COMPLETED DATE/TIME: 03/23/2018 11:32 am REASON FOR STUDY: NON-PRESSURE CHRONIC ULCER OF LEFT CALF W FAT LAYER EXPOSED E11.622 TYPE 2 DIABET ES MELLITUS WITH OTHER SKIN ULCER L97.222 NON-PRESSURE CHRONIC ULCER OF LEFT CALF W FAT LAYER COMPARISON: None. NUMBER OF VIEWS: Two views. TECHNIQUE: Two radiographic images acquired of the left tibia and fibula to include the knee and ank le in at least one projection. LIMITATIONS: None. FINDINGS: MINERALIZATION: Normal. BONES: No evidence of osteomyelitis. SOFT TISSUES: Swelling posterior and lateral comminuted foreign body. OTHER: No other significant finding. IMPRESSION: No evidence of osteomyelitis. TECHNICAL DOCUMENTATION: JOB ID: [id number] [employer]- All Rights Reserved Reading location - IP/workstation name: [email or web address]
== END ==
LOC: OD 10:39
PROVIDERS: ATTEND Surgery
DX: E11.622 Type 2 diabetes mellitus with other skin ulcer (principal); L97.222 Non-pressure chronic ulcer of left calf with fat layer exposed
CPT/HCPCS: 36415; 80053; 83036; 85025; 85652; 86140

== ENCOUNTER → 2018-05-16 | Outpatient (CLI) | payer MEDICARE, OTHER | LOC: WI 15:12 | PROVIDERS: ATTEND Internal Medicine | DX: Z12.31 Encounter for screening mammogram for malignant neoplasm of breast (principal) | CPT/HCPCS: 77063; 77067 ==

== ENCOUNTER 2018-06-06 15:37 | Day surgery (SDC) | payer MEDICARE, OTHER ==
[2018-06-06] MEDS ORDERED: DIPHENHYDRAMINE HCL 50 MG/ML VIAL ONE (15:39)
[2018-06-06] MEDS ORDERED: ONDANSETRON HCL INJ/PF 4 MG/2 ML SDV ONE (15:39)
[2018-06-06] MEDS ORDERED: GLUCAGON,HUMAN RECOMB 1 MG INJ ONE (15:40)
[2018-06-06] MEDS ORDERED: FLUMAZENIL INJ 0.5 MG/5 ML VIAL ONE (15:40)
[2018-06-06] MEDS ORDERED: EPINEPHRINE INJ 1 MG/10 ML DISP.SYRIN ONE (15:40)
[2018-06-06] MEDS ORDERED: NALOXONE HCL INJ/PF 0.4 MG/1 ML SDV ONE (15:40)
[2018-06-06] MEDS: MIDAZOLAM 2 MG/2 ML INJ ONE ×4 (16:09→16:19)
[2018-06-06] MEDS: FENTANYL CITRATE INJ/PF 100 MCG/2 ML AMPUL ONE ×2 (16:11→16:13)
--- NOTE | 2018-06-06 16:49 | Operative Report ---
Operative Report DATE OF SURGERY: 06/06/18 Operative Report: Pre-op diagnosis: Colon cancer screening Post-op diagnosis: 1. Polyps in the descending colon and rectum 2. Internal hemorrhoids Surgery: Colonoscopy with polypectomy Medications: Versed 3mg, Fentanyl 75 Mcg IV push Tissue removed: Procedure: After informed consent obtained from patient, conscious sedation was achieved. A digital rectal examination was performed and this was unremarkable. The colonoscope was inserted into the rectum and advanced to the cecum. The appendiceal orifice and the terminal ileum were both identified. The mucosa was examined into details as the colonoscope was slowly pulled out of the patient. The endoscope was retroflexed in the rectum. Patient tolerated the procedure well. Findings Cecum: Normal Ascending colon: Normal Transverse colon: 4 mm polyp removed with a cold snare from the proximal transverse colon Descending colon: Normal Sigmoid colon: Normal Rectum: 5 mm polyp removed with a cold snare. Internal hemorrhoids were also noted Plan: Await pathology. Repeat colonoscopy in 5 years if polyps are adenomatous OPERATION: .
[2018-06-06 17:50] VITALS: BP 134/61
== END 2018-06-06 17:48 | disposition home or self-care (01) ==
LOC: END 15:37
PROVIDERS: ATTEND Internal Medicine Gastroenterology
DX: Z12.11 Encounter for screening for malignant neoplasm of colon (principal); D12.3 Benign neoplasm of transverse colon; K64.8 Other hemorrhoids; K63.5 Polyp of colon; I10 Essential (primary) hypertension; E78.00 Pure hypercholesterolemia, unspecified; E11.9 Type 2 diabetes mellitus without complications; J44.9 Chronic obstructive pulmonary disease, unspecified; G47.30 Sleep apnea, unspecified; Z99.81 Dependence on supplemental oxygen; Z79.84 Long term (current) use of oral hypoglycemic drugs; Z79.899 Other long term (current) drug therapy
CPT/HCPCS: 45385; 82962; 88305 ×2; J2250; J3010; J0171; J1200; J1610; J2310; J2405; J3490

== ENCOUNTER → 2018-06-14 | Outpatient (CLI) | payer MEDICARE, OTHER ==
--- NOTE | 2018-06-14 10:48 | WOMENS IMAGING REPORT ---
EXAM DESCRIPTION: U/S BREAST UNILAT LIMITED COMPLETED DATE/TIME: 06/14/2018 10:23 am REASON FOR STUDY: R92.2 INCONCLUSIVE MAMMOGRAM R92.2 INCONCLUSIVE MAMMOGRAM COMPARISON: Mammogram 05/16/2018. TECHNIQUE: Real-time and static grayscale imaging performed of the left breast targeted to the area of clinical/mammographic concern. Selected color Doppler images recorded. LIMITATIONS: None. FINDINGS: MASS: 1 to 2 o'clock subareolar hypoechoic mass measuring 1.3 x 0.6 x 1.3 cm. Lobulated m argins and heterogeneous posterior shadowing. OTHER: No other significant finding. IMPRESSION: Suspicious mass. BIRAD: 4 Suspicious. Biopsy should be considered. RECOMMENDATION: RECOMMENDED FOLLOW-UP: Ultrasound-guided core biopsy. COMMENT: The [employer] (ACR) has developed recommendations for screening MRI of the breasts in certain patient populations, to be used in conjunction with mammography. Breast MRI s urveillance may be appropriate for women with more than 20% lifetime risk of developing breast cancer as determined by genetic testing, significant family history of the disease, or history of mantle r adiation for Hodgkins Disease. ACR Practice Guidelines 2008. TECHNICAL DOCUMENTATION: JOB ID: [id number] [employer]- All Rights Reserved Reading location - IP/workstation name: [email or web address]
== END ==
LOC: WI 09:05
PROVIDERS: ATTEND Internal Medicine
DX: N63.42 Unspecified lump in left breast, subareolar (principal)
CPT/HCPCS: 76642

== ENCOUNTER → 2018-06-19 | Outpatient (CLI) | payer MEDICARE, OTHER ==
[2018-06-19 11:46] LABS: ABSOLUTE EOSINOPHILS # (AUTO) 0.2 10^3/uL (0.0-0.6); ABSOLUTE LYMPHOCYTES (AUTO) 2.8 10^3/uL (0.5-4.7); ABSOLUTE MONOCYTES (AUTO) 0.5 10^3/uL (0.1-1.4); ABSOLUTE NEUT (AUTO) 4.8 10^3/uL (1.7-8.2); BASOPHILS % (AUTO) 0.6 % (0-2); EOSINOPHILS % (AUTO) 2.6 % (0-6); HEMATOCRIT 32.3 % (36.0-47.0); HEMOGLOBIN 10.6 g/dL (12.0-15.5); LYMPHOCYTES % (AUTO) 33.8 % (13-45); MEAN CORPUSCULAR HGB CONC 32.9 g/dL (32.0-36.0); MEAN CORPUSCULAR VOLUME 79 fl (80-97); MONOCYTES % (AUTO) 5.6 % (3-13); PLATELET COUNT 220 10^3/uL (150-450); RED BLOOD COUNT 4.08 10^6/uL (3.72-5.28); RED CELL DISTRIBUTION WIDTH 16.9 % (11.5-14.0); SEGMENTED NEUTROPHILS % (AUTO) 57.4 % (42-78); TOTAL CELLS COUNTED % (AUTO) 100 %; WHITE BLOOD COUNT 8.4 10^3/uL (4.0-10.5)
[2018-06-19 12:18] LABS: ALANINE AMINOTRANSFERASE 20 U/L (9-52); ALBUMIN 4.5 g/dL (3.5-5.0); ALKALINE PHOSPHATASE 79 U/L (38-126); ANION GAP 10 (5-19); ASPARTATE AMINO TRANSFERASE 16 U/L (14-36); BILIRUBIN,DIRECT 0.2 mg/dL (0.0-0.4); BILIRUBIN,TOTAL 0.2 mg/dL (0.2-1.3); BLOOD UREA NITROGEN 54 mg/dL (7-20); C-REACTIVE PROTEIN 9.1 mg/L (<10.0); CALCIUM 9.4 mg/dL (8.4-10.2); CARBON DIOXIDE 28 mmol/L (22-30); CHLORIDE 106 mmol/L (98-107); GLUCOSE 95 mg/dL (75-110); POTASSIUM 5.6 mmol/L (3.6-5.0)
[2018-06-19 12:25] LABS: ERYTHROCYTE SEDIMENTATION RATE 52 mm/hr (0-30)
== END ==
LOC: WC 10:24
PROVIDERS: ATTEND Surgery
DX: L97.222 Non-pressure chronic ulcer of left calf with fat layer exposed (principal)
CPT/HCPCS: 36415; 80053; 85025; 85652; 86140

== ENCOUNTER → 2018-06-26 | Day surgery (SDC) | payer MEDICARE, OTHER ==
[~2018-06-26] MED LIST: LIDOCAINE 1% INJ-PF (10 MG/ML) 30 ML SDV ONE
--- NOTE | 2018-06-28 11:21 | WOMENS IMAGING REPORT ---
EXAM DESCRIPTION: U/S BREAST BX; LEFT DIG DX MAMMO NO CHG COMPLETED DATE/TIME: 06/26/2018 2:32 pm; 06/26/2018 2:30 pm REASON FOR STUDY: R92.2 INCONCLUSIVE MAMMOGRAM, N63.20 UNSPECIFIED LUMP IN THE LEFT BREAST,UN; R92.2 , N63.20 S/P LEFT BREAST US BX FOR CLIP PLACEMENT R92.2 INCONCLUSIVE MAMMOGRAM N63.20 UNSPECIFIED L UMP IN THE LEFT BREAST, UNSPECIFIED QUAD COMPARISON: 06/14/2018 and 05/16/2018. TECHNIQUE: The procedure was discussed with the patient and the patient agreed to proceed. The patient was scanned and the area of interest in the 1-2 o'clock position of the left breast was l ocalized. This correlates with the area of concern on prior imaging studies. This area was targeted for ultrasound-guided core biopsy. After sterile skin prep and 10 mL local lidocaine 1% for skin and deep tissue anesthesia, a 14 gauge coaxial core biopsy needle was used to obtain several cores of tissue from the lesion. Under ultraso und guidance, a ribbon clip was placed in the areas sampled. There were no immediate post-procedure complications. MAMMOGRAM: Post-procedure two view mammogram was acquired in the digital mammogram suite. The clip wa s in the expected location. No significant hematoma. 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 No ductal carcinoma in s itu or invasive carcinoma identified. Pathology is concordant. LIMITATIONS: None. FINDINGS: Ultrasound guided breast biopsy as described above. POST PROCEDURE MAMMOGRAMS FOR MARKER PLACEMENT: Yes IMPRESSION: ULTRASOUND-GUIDED CORE BIOPSY OF THE LEFT BREAST YIELDS A DIAGNOSIS OF FIBROEPITHELIAL L ESION, FAVOR FIBROADENOMA. COMMENT: COMMUNICATION: The patient was personally notified of the findings by the radiologist. The patient may resume routine screening mammography. Patient medication list reviewed: Yes- Quality ID# [id number]:Eligible professional attests to documenting i n the medical record they obtained, updated, or reviewed the patient's current medications. TECHNICAL DOCUMENTATION: JOB ID: [id number] [employer]- All Rights Reserved Reading location - IP/workstation name: [email or web address]
== END ==
LOC: WI 13:01
PROVIDERS: ATTEND Internal Medicine
DX: R92.2 Inconclusive mammogram (principal); N63.20 Unspecified lump in the left breast, unspecified quadrant
CPT/HCPCS: 88305 ×2; 19083; J3490

== ENCOUNTER → 2019-01-17 | Outpatient (CLI) | payer MEDICARE, OTHER ==
[2019-01-17 11:26] LABS: ABSOLUTE EOSINOPHILS # (AUTO) 0.2 10^3/uL (0.0-0.6); ABSOLUTE LYMPHOCYTES (AUTO) 2.8 10^3/uL (0.5-4.7); ABSOLUTE MONOCYTES (AUTO) 0.4 10^3/uL (0.1-1.4); ABSOLUTE NEUT (AUTO) 4.3 10^3/uL (1.7-8.2); BASOPHILS % (AUTO) 0.4 % (0-2); EOSINOPHILS % (AUTO) 2.8 % (0-6); HEMATOCRIT 32.4 % (36.0-47.0); HEMOGLOBIN 10.5 g/dL (12.0-15.5); LYMPHOCYTES % (AUTO) 36.2 % (13-45); MEAN CORPUSCULAR HEMOGLOBIN 26.8 pg (27.0-33.4); MEAN CORPUSCULAR HGB CONC 32.5 g/dL (32.0-36.0); MEAN CORPUSCULAR VOLUME 82 fl (80-97); PLATELET COUNT 180 10^3/uL (150-450); RED BLOOD COUNT 3.94 10^6/uL (3.72-5.28); RED CELL DISTRIBUTION WIDTH 15.1 % (11.5-14.0); SEGMENTED NEUTROPHILS % (AUTO) 55.6 % (42-78); TOTAL CELLS COUNTED % (AUTO) 100 %; WHITE BLOOD COUNT 7.8 10^3/uL (4.0-10.5)
[2019-01-17 11:48] LABS: ALBUMIN 4.2 g/dL (3.5-5.0); ALKALINE PHOSPHATASE 65 U/L (38-126); ANION GAP 11 (5-19); ASPARTATE AMINO TRANSFERASE 16 U/L (14-36); BILIRUBIN,DIRECT 0.1 mg/dL (0.0-0.4); BILIRUBIN,TOTAL 0.3 mg/dL (0.2-1.3); BLOOD UREA NITROGEN 83 mg/dL (7-20); CALCIUM 9.3 mg/dL (8.4-10.2); CARBON DIOXIDE 22 mmol/L (22-30); CHLORIDE 109 mmol/L (98-107); GLUCOSE 85 mg/dL (75-110); POTASSIUM 5.2 mmol/L (3.6-5.0); TOTAL PROTEIN 7.9 g/dL (6.3-8.2)
[2019-01-17 11:57] LABS: APPEARANCE,URINE SLIGHTLY-CLOUDY; BILIRUBIN,URINE NEGATIVE (NEGATIVE); COLOR,URINE YELLOW; GLUCOSE, URINE NEGATIVE (NEGATIVE); KETONES,URINE NEGATIVE (NEGATIVE); LEUKOCYTE ESTERASE,URINE MODERATE (NEGATIVE); NITRITE,URINE NEGATIVE (NEGATIVE); PROTEIN,URINE NEGATIVE (NEGATIVE); URINE SPECIFIC GRAVITY 1.011; UROBILINOGEN,URINE NEGATIVE mg/dL (<2.0)
== END ==
LOC: OD 10:55
PROVIDERS: ATTEND Internal Medicine Nephrology
DX: I12.9 Hypertensive chronic kidney disease with stage 1 through stage 4 chronic kidney disease, or unspecified chronic kidney disease (principal); N18.3 Chronic kidney disease, stage 3 (moderate); E11.22 Type 2 diabetes mellitus with diabetic chronic kidney disease; N39.0 Urinary tract infection, site not specified; E66.01 Morbid (severe) obesity due to excess calories
CPT/HCPCS: 36415; 80053; 81001; 85025; 87086; 87088

== ENCOUNTER → 2019-01-22 | Outpatient (CLI) | payer MEDICARE, OTHER ==
--- NOTE | 2019-01-22 10:58 | WOMENS IMAGING REPORT ---
EXAM DESCRIPTION: RETROPERITONEAL U/S COMPLETED DATE/TIME: 01/22/2019 9:21 am REASON FOR STUDY: N18.3 RENAL U/S I12.9 HYPERTENSIVE CHRONIC KIDNEY DISEASE W STG 1-4/UNSP CHR N18. 3 CHRONIC KIDNEY DISEASE, STAGE 3 (MODERATE) COMPARISON: 04/20/2017 TECHNIQUE: Dynamic and static grayscale images acquired of the kidneys and bladder and recorded on P ACS. Additional selected color Doppler and spectral images recorded. LIMITATIONS: Extremely limited examination due to the patient's body habitus. Patient was scanned i n chair. FINDINGS: RIGHT KIDNEY: The right kidney measures 11.9 x 6.7 x 5.4 cm, normal size. Normal echoge nicity. No solid or suspicious masses. No hydronephrosis. No calcifications. LEFT KIDNEY: The left kidney measures 9.3 x 5.1 x 5.0 cm, normal size. Normal echogenicity. No kimberlee id or suspicious masses. No hydronephrosis. No calcifications. BLADDER: The urinary bladder is empty and not visualized. OTHER FINDINGS: No other significant finding. IMPRESSION: 1. Extremely limited examination due to patient body habitus. The patient was also sca nned and chair. 2. No evidence of hydronephrosis. TECHNICAL DOCUMENTATION: JOB ID: [id number] [employer]- All Rights Reserved Reading location - IP/workstation name: [email or web address]
== END ==
LOC: WI 08:50
PROVIDERS: ATTEND Internal Medicine Nephrology
DX: I12.9 Hypertensive chronic kidney disease with stage 1 through stage 4 chronic kidney disease, or unspecified chronic kidney disease (principal); N18.3 Chronic kidney disease, stage 3 (moderate)
CPT/HCPCS: 76770

== ENCOUNTER 2019-03-24 16:50 | Inpatient (IN) | payer MEDICARE, OTHER ==
--- NOTE | 2019-03-24 17:23 | ER Document Report ---
ED Medical Screen (RME) - General Chief Complaint: Foot Pain Stated Complaint: FOOT PAIN Time Seen by Provider: 03/24/19 17:12 Primary Care Provider: Hood HOOVER MD [Primary Care Provider] - Follow up as needed Notes: Patient is a 73-year-old female with a history of type 2 diabetes, COPD, gout who presents emergency department with multiple complaints. Family member did pick the patient up yesterday in [place] and she was discharged from a long-term. Patient was in the long-term after being diagnosed with a left foot infection and gout to the right foot. They did send her home with prescriptions that have not been filled yet. Patient reports she supposed to be on oxygen continuously throughout the day but has not had any today and is starting to get a headache. Patient denies fever. Family members concerned that they do not have anyone that can take care of her, including management of her oxygen, her medications, etc. Patient did used to live with her other daughter who is unable to take care of her. Family would like a social work consult. TRAVEL OUTSIDE OF THE [place] IN LAST 30 DAYS: No - Related Data Allergies/Adverse Reactions: adhesive [Adhesive] Allergy (Verified 03/24/19 17:10) No Known Drug Allergies Allergy (Verified 03/24/19 17:10) Past Medical History - Social History Chew tobacco use (# tins/day): No Frequency of alcohol use: None Drug Abuse: None - Past Medical History Cardiac Medical History: Reports: Hx Congestive Heart Failure, Hx Hypercholesterolemia, Hx Hypertension, Hx Peripheral Vascular Disease Denies: Hx Coronary Artery Disease, Hx DVT, Hx Heart Attack, Hx Pulmonary Embolism Pulmonary Medical History: Reports: Hx Bronchitis, Hx Pneumonia, Hx Sleep Apnea Denies: Hx Asthma, Hx COPD - WEARS 3LNC - 18-24 HOURS OUT OF THE DAY Neurological Medical History: Denies: Hx Cerebrovascular Accident, Hx Seizures Endocrine Medical History: Reports: Hx Diabetes Mellitus Type 2. Denies: Hx Diabetes Mellitus Type 1, Hx Hyperthyroidism, Hx Hypothyroidism Renal/ Medical History: Denies: Hx Peritoneal Dialysis GI Medical History: Reports: Hx Gastroesophageal Reflux Disease - Distant history of same; no recent symptoms.. Denies: Hx Cirrhosis, Hx Hepatitis Musculoskeltal Medical History: Reports Hx Arthritis Skin Medical History: Reports Hx Cellulitis, Reports Hx MRSA Psychiatric Medical History: Reports: Hx Depression - Denies suicidal or homicidal ideation. Infectious Medical History: Reports: Hx MRSA - Diagnosed August 2016.. Denies: Hx C-Diff, Hx Hepatitis Past Surgical History: Reports: Hx Orthopedic Surgery, Other - Wound debridement. Denies: Hx Hysterectomy - Immunizations Immunizations up to date: No Hx Diphtheria, Pertussis, Tetanus Vaccination: Yes Physical Exam - Vital signs Vitals: BP 167/77 H 03/24/19 16:50 Course - Re-evaluation Re-evalutation: 03/24/19 17:23 I have greeted and performed a rapid initial assessment of this patient. A comprehensive ED assessment and evaluation of the patient, analysis of test results and completion of the medical decision making process will be conducted by additional ED providers. - Vital Signs Vital signs: Temp Pulse Resp BP Pulse Ox 97.0 F 79 122/64 95 03/24/19 17:10 03/24/19 16:55 03/24/19 16:55 03/24/19 17:10 Doctor's Discharge - Discharge Referrals: Hood HOOVER MD [Primary Care Provider] - Follow up as needed
[2019-03-24 18:01] LABS: ABSOLUTE EOSINOPHILS # (AUTO) 0.3 10^3/uL (0.0-0.6); ABSOLUTE LYMPHOCYTES (AUTO) 3.1 10^3/uL (0.5-4.7); ABSOLUTE MONOCYTES (AUTO) 0.6 10^3/uL (0.1-1.4); BASOPHILS % (AUTO) 0.5 % (0-2); EOSINOPHILS % (AUTO) 3.2 % (0-6); HEMATOCRIT 33.3 % (36.0-47.0); HEMOGLOBIN 10.9 g/dL (12.0-15.5); LYMPHOCYTES % (AUTO) 34.6 % (13-45); MEAN CORPUSCULAR HEMOGLOBIN 27.1 pg (27.0-33.4); MEAN CORPUSCULAR HGB CONC 32.9 g/dL (32.0-36.0); MEAN CORPUSCULAR VOLUME 82 fl (80-97); MONOCYTES % (AUTO) 6.9 % (3-13); PLATELET COUNT 249 10^3/uL (150-450); RED BLOOD COUNT 4.05 10^6/uL (3.72-5.28); RED CELL DISTRIBUTION WIDTH 16.6 % (11.5-14.0); SEGMENTED NEUTROPHILS % (AUTO) 54.8 % (42-78); TOTAL CELLS COUNTED % (AUTO) 100 %; WHITE BLOOD COUNT 9.1 10^3/uL (4.0-10.5)
[2019-03-24 18:17] LABS: BLOOD UREA NITROGEN 43 mg/dL (7-20); CALCIUM 9.5 mg/dL (8.4-10.2); CHLORIDE 106 mmol/L (98-107); GLUCOSE 111 mg/dL (75-110); POTASSIUM 5.5 mmol/L (3.6-5.0)
[2019-03-24 18:18] LABS: ALBUMIN 4.3 g/dL (3.5-5.0); ALKALINE PHOSPHATASE 82 U/L (38-126); ANION GAP 10 (5-19); ASPARTATE AMINO TRANSFERASE 18 U/L (14-36); BILIRUBIN,DIRECT 0.2 mg/dL (0.0-0.4); BILIRUBIN,TOTAL 0.3 mg/dL (0.2-1.3); CARBON DIOXIDE 26 mmol/L (22-30); TOTAL PROTEIN 7.8 g/dL (6.3-8.2)
--- NOTE | 2019-03-24 20:04 | RADIOLOGY REPORT (SQ) ---
EXAM DESCRIPTION: TIB FIB BILAT 2 VIEWS COMPLETED DATE/TIME: 03/24/2019 7:49 pm REASON FOR STUDY: pain, r/o fx. COMPARISON: 01/19/2017 NUMBER OF VIEWS: Four views. TECHNIQUE: Two radiographic images acquired of the right and left tibia and fibula to include the kn ee and ankle in at least one projection. LIMITATIONS: None. FINDINGS: MINERALIZATION: Normal. BONES: No acute fracture or dislocation. No worrisome bone lesions. SOFT TISSUES: No obvious swelling or foreign body. OTHER: No other significant finding. IMPRESSION: No fracture identified. TECHNICAL DOCUMENTATION: JOB ID: [id number] [employer]- All Rights Reserved Reading location - IP/workstation name: [employer])
--- NOTE | 2019-03-24 20:04 | EKG REPORT ---
SEVERITY:- ABNORMAL ECG - SINUS RHYTHM ANTERIOR INFARCT, AGE INDETERMINATE : Confirmed by: Gretchen Duncan MD 24-Mar-2019 20:04:15
--- NOTE | 2019-03-24 20:27 | ER Document Report ---
ED General - General Chief Complaint: Foot Pain Stated Complaint: FOOT PAIN Time Seen by Provider: 03/24/19 17:12 Primary Care Provider: Hood HOOVER MD [ACTIVE STAFF] - Follow up as needed TRAVEL OUTSIDE OF THE [place] IN LAST 30 DAYS: No - HPI Notes: Ms. Monroy is a 73-year-old female brought to the emergency department by her family for evaluation of multiple problems at this time. The patient is quite chronically debilitated and is been in a rehabilitation center in the [facility]. Apparently she was evicted from that facility within the last 2 to 3 days and her daughter who lives in that area says she is not able to care for the patient. She has transported her here and turned over all of her management to her sister who feels that she also cannot cope with present needs at home and they have brought the patient tonight to the emergency department requesting complete evaluation and placement in some kind of an extended care facility. The patient is an extremely poor historian. No medical records have been brought with patient at this time. The patient's primary complaint at this time seems to be bilateral lower extremity discomfort. She has a history of gout and was recently told by a physician that she was potentially having a gout flare involving her right ankle and foot. She also has evidence of old orthopedic trauma of the right lower leg. She has what appears to be a chronic cellulitis of the left lower leg and has had DuoDERM dressings in place for some time and is unable to tell me when these were last changed. Patient denies any known history of DVT or PE. She says she is not currently on anticoagulants. She is been treated with antibiotics in the past for lower extremity but says she has not been on antibiotics within the last 2 weeks that she is aware of. Patient also says she is chronically maintained on 2 L of nasal O2. She denies any past history of smoking. She denies any known history of congestive fail ure, asthma or COPD and seems to be very unclear as to the specific reason why she is on oxygen. Patient has a history of diabetes mellitus type 2 on oral agent. She also has a past history of coronary disease. Possible history of sleep apnea syndrome although it does not sound like she is been treated with CPAP. - Related Data Allergies/Adverse Reactions: adhesive [Adhesive] Allergy (Verified 03/24/19 17:10) No Known Drug Allergies Allergy (Verified 03/24/19 17:10) Past Medical History - Social History Smoking Status: Never Smoker Chew tobacco use (# tins/day): No Frequency of alcohol use: None Drug Abuse: None Family History: CAD, Malignancy Patient has suicidal ideation: No Patient has homicidal ideation: No - Past Medical History Cardiac Medical History: Reports: Hx Congestive Heart Failure, Hx Hypercholesterolemia, Hx Hypertension, Hx Peripheral Vascular Disease Denies: Hx Coronary Artery Disease, Hx DVT, Hx Heart Attack, Hx Pulmonary Embolism Pulmonary Medical History: Reports: Hx Bronchitis, Hx Pneumonia, Hx Sleep Apnea Denies: Hx Asthma, Hx COPD - WEARS 3LNC - 18-24 HOURS OUT OF THE DAY Neurological Medical History: Denies: Hx Cerebrovascular Accident, Hx Seizures Endocrine Medical History: Reports: Hx Diabetes Mellitus Type 2. Denies: Hx Diabetes Mellitus Type 1, Hx Hyperthyroidism, Hx Hypothyroidism Renal/ Medical History: Denies: Hx Peritoneal Dialysis GI Medical History: Reports: Hx Gastroesophageal Reflux Disease - Distant history of same; no recent symptoms.. Denies: Hx Cirrhosis, Hx Hepatitis Musculoskeletal Medical History: Reports Hx Arthritis Skin Medical History: Reports Hx Cellulitis, Reports Hx MRSA Psychiatric Medical History: Reports: Hx Depression - Denies suicidal or homicidal ideation. Infectious Medical History: Reports: Hx MRSA - Diagnosed August 2016.. Denies: Hx C-Diff, Hx Hepatitis Past Surgical History: Reports: Hx Orthopedic Surgery, Other - Wound debridement. Denies: Hx Hysterectomy - Immunizations Immunizations up to date: No Hx Diphtheria, Pertussis, Tetanus Vaccination: Yes Review of Systems - Review of Systems Notes: Constitutional: Negative for fever. HENT: Negative for sore throat. Eyes: Negative for visual changes. Cardiovascular: Negative for chest pain. Respiratory: As per HPI. Gastrointestinal: Negative for abdominal pain, vomiting or diarrhea. Genitourinary: Negative for dysuria. Musculoskeletal: As per HPI. Skin: As per HPI. Neurological: Negative for headaches, weakness or numbness. 10 point ROS negative except as marked above and in HPI. Physical Exam - Vital signs Vitals: BP 167/77 H 03/24/19 16:50 - Notes Notes: GENERAL: Chronically ill-appearing elderly female morbidly obese. Patient is on nasal O2 2 L/min with O2 saturation 98% pulse ox. SKIN: Good turgor. Patient has a chronic appearing cellulitis over the left pretibial area with some weeping and primarily clear drainage. HEAD: Normocephalic atraumatic. EYES: PERRLA. EOMI. Conjunctivae and sclerae clear. EARS: CANALS AND TMS CLEAR. NOSE: CLEAR. MOUTH: Moist mucosa. Good dentition. No stridor or edema. No drooling. NECK: Supple. No masses or thyromegaly. No adenopathy. Carotids 2+ without bruits. No JVD. BACK: Symmetrical without tenderness. CHEST: Respirations unlabored. Breath sounds clear and symmetrical. HEART: Regular rhythm. No murmur gallop or rub. ABDOMEN: Soft nontender without masses, organomegaly or rebound. Bowel sounds normally active. No bruits. GENITALIA: Deferred. EXTREMITIES: 3+ edema both lower legs. Multiple surgical scars over the right lower leg. Tenderness over medial malleolus on the right lower extremity. No calf tenderness. Cap refill less than 1.5 seconds. Dorsalis pedis and posterior tibial pulses 2 + and symmetrical. NEUROLOGICAL: GCS 15. Alert and oriented x3. Normal gait. Fluent speech. Cranial nerves II through XII intact. Sensorimotor and cerebellar normal. Normal tone. Course - Re-evaluation Re-evalutation: 03/25/19 01:09 Rocephin IV ordered for left lower lobe pneumonia. Patient has mild hyperkalemia and appears to have some acute on chronic renal disease with evidence of acute kidney injury. Daughter is also requesting assisted placement. Patient is being admitted at this time by Dr. De La Rosa to [facility]. - Vital Signs Vital signs: Temp Pulse Resp BP Pulse Ox 97.0 F 79 18 101/48 L 99 03/24/19 17:10 03/24/19 16:55 03/25/19 00:02 03/25/19 00:02 03/25/19 00:02 - Laboratory Result Diagrams: 03/24/19 17:34 03/24/19 17:34 Laboratory results interpreted by me: 03/24/19 03/24/19 03/24/19 17:34 17:34 23:00 Hgb 10.9 L Hct 33.3 L RDW 16.6 H ABG pH 7.33 L ABG pO2 111.9 H Potassium 5.5 H BUN 43 H Creatinine 2.36 H Est GFR ( Amer) 24 L Est GFR (MDRD) Non-Af 20 L Glucose 111 H Critical Care Note - Critical Care Note Total time excluding time spent on procedures (mins): 35 Comments: Oral Kayexalate given. Discharge - Discharge Clinical Impression: ADRIANA (acute kidney injury), Hyperkalemia Pneumonia Qualifiers: Pneumonia type: due to unspecified organism Laterality: left Lung location: lower lobe of lung Qualified Code(s): J18.9 - Pneumonia, unspecified organism Condition: Fair Disposition: ADMITTED INPATIENT Admitting Provider: [facility] Unit Admitted: [facility] Referrals: Hood HOOVER MD [ACTIVE STAFF] - Follow up as needed
--- NOTE | 2019-03-24 21:29 | RADIOLOGY REPORT (SQ) ---
EXAM DESCRIPTION: XR CHEST 1 VIEW COMPLETED DATE/TME: 03/24/2019 20:26 CLINICAL HISTORY: 73 years, Female, Dyspnea COMPARISON: X-ray chest 11/25/2017 NUMBER OF VIEWS: TECHNIQUE: LIMITATIONS: None. FINDINGS: Significantly limited examination due to the patient's body habitus and because the patient has made a poor inspiratory effort. There is cardiomegaly. Pulmonary vascularity appears normal. There is possible increased opacity at the left lung base. This finding may be due to overlying soft tissue, however, pathology at the left lung base cannot be excluded. IMPRESSION: Cardiomegaly. Possible increased opacity at the left lung base. copyright 2010 [employer]- All Rights Reserved
[2019-03-24 23:28] LABS: ARTERIAL BLOOD BASE EXCESS -4.8 mmol/L; ARTERIAL BLOOD FIO2 3L; ARTERIAL BLOOD H2CO3 1.21 mmol/L (1.05-1.35); ARTERIAL BLOOD HCO3 20.8 mmol/L (20-24); ARTERIAL BLOOD O2 SATURATION 97.8 % (94-98); ARTERIAL BLOOD PCO2 40.2 mmHg (35-45); ARTERIAL BLOOD PH 7.33 (7.35-7.45); ARTERIAL BLOOD PO2 111.9 mmHg (80-100)
[2019-03-24 23:37] LABS: APPEARANCE,URINE CLEAR; BILIRUBIN,URINE NEGATIVE (NEGATIVE); COLOR,URINE YELLOW; GLUCOSE, URINE NEGATIVE (NEGATIVE); KETONES,URINE NEGATIVE (NEGATIVE); PROTEIN,URINE NEGATIVE (NEGATIVE); URINE SPECIFIC GRAVITY 1.015; UROBILINOGEN,URINE NEGATIVE mg/dL (<2.0)
[2019-03-25] MEDS ORDERED: SODIUM POLYSTYRENE SULFONATE 15 GM/60 ML PO ONE (01:08)
[2019-03-25] MEDS ORDERED: CEFTRIAXONE INJ 1000 MG VIAL IV ONE (01:09)
[2019-03-25] MEDS ORDERED: SODIUM POLYSTYRENE SULFONATE 15 GM/60 ML ONE (04:14)
[2019-03-25] MEDS ORDERED: INFLUENZA QUAD (6MOS+) 2019-20 VAC 0.5 ML SYR IM ONE (05:46)
[2019-03-25] MEDS ORDERED: DEXTROSE 50%-WATER SYRINGE 12.5 GM/25 ML DOSE IV PRN (06:00)
[2019-03-25] MEDS ORDERED: DEXTROSE 40% GEL 15 GM TUBE PO PRN (06:00)
[2019-03-25] MEDS ORDERED: DEXTROSE 40% GEL 15 GM TUBE X 2 PO PRN (06:00)
[2019-03-25] MEDS ORDERED: DEXTROSE 50%-WATER SYRINGE 25 GM/50 ML DOSE IV PRN (06:00)
[2019-03-25] MEDS ORDERED: GLUCAGON,HUMAN RECOMB 1 MG INJ IM PRN (06:00)
[2019-03-25 06:46] LABS: ABSOLUTE BASOPHILS # (AUTO) 0.1 10^3/uL (0.0-0.2); ABSOLUTE EOSINOPHILS # (AUTO) 0.3 10^3/uL (0.0-0.6); ABSOLUTE LYMPHOCYTES (AUTO) 3.6 10^3/uL (0.5-4.7); ABSOLUTE MONOCYTES (AUTO) 0.6 10^3/uL (0.1-1.4); ABSOLUTE NEUT (AUTO) 4.1 10^3/uL (1.7-8.2); BASOPHILS % (AUTO) 0.8 % (0-2); EOSINOPHILS % (AUTO) 2.9 % (0-6); HEMATOCRIT 30.7 % (36.0-47.0); HEMOGLOBIN 10.1 g/dL (12.0-15.5); LYMPHOCYTES % (AUTO) 41.7 % (13-45); MEAN CORPUSCULAR HGB CONC 32.8 g/dL (32.0-36.0); MEAN CORPUSCULAR VOLUME 82 fl (80-97); MONOCYTES % (AUTO) 6.7 % (3-13); PLATELET COUNT 206 10^3/uL (150-450); RED BLOOD COUNT 3.74 10^6/uL (3.72-5.28); RED CELL DISTRIBUTION WIDTH 16.2 % (11.5-14.0); SEGMENTED NEUTROPHILS % (AUTO) 47.9 % (42-78); TOTAL CELLS COUNTED % (AUTO) 100 %; WHITE BLOOD COUNT 8.7 10^3/uL (4.0-10.5)
[2019-03-25 07:02] LABS: ANION GAP 9 (5-19); BLOOD UREA NITROGEN 38 mg/dL (7-20); CARBON DIOXIDE 26 mmol/L (22-30); CHLORIDE 109 mmol/L (98-107); GLUCOSE 100 mg/dL (75-110); POTASSIUM 4.6 mmol/L (3.6-5.0)
[2019-03-25] MEDS: INSULIN LISPRO 100 UNIT/ML 3 ML VIAL SUBCUT SCH ×4 (07:52→21:20)
[2019-03-25] MEDS: NYSTATIN TOPICAL POWDER 15 GM TP SCH ×2 (12:33→18:09)
--- NOTE | 2019-03-25 19:20 | PDOC H&P ---
History of Present Illness Admission Date/PCP: 03/25/19 01:42 CRUZ HUERTA MD Patient complains of: Foot pain History of Present Illness: SERINA LEE is a 73 year old female reported patient of Dr. Huerta who presented to the ED with family concern about right ankle and foot pain that maybe related to flare gout attack. She denied any prior history of gout. She has extensive peripheral arterial disease with chronic cellulitis of left leg, and orthopedic trauma to right lower leg. Patient reported pain in both legs but more in her right leg. She denied any recent trauma, ingest any unusual food or drink. She recently located to [place], [place] from [place] due to family, daughters, inability to care for her at this time. She denied any chest pain or difficulty with breathing but remain on continuous supplemental oxygen. Her medical reason for the supplemental oxygen is not clear to us at this time and patient was unable to contribute much to this aspect of her medical care. Her morbidities are listed below. Her initial evaluation in the ED was significant for acute kidney injury with hyperkalemia, left lower lobe airspace disease proc ess suggestive early pneumonia changes. She was advised hospitalization for further evaluation and management. Past Medical History Cardiac Medical History: Reports: Congestive Heart Failure, Hyperlipidema, Hypertension, Peripheral Vascular Disease Denies: Coronary Artery Disease, DVT, Myocardial Infarction, Pulmonary Embolism Pulmonary Medical History: Reports: Bronchitis, Pneumonia, Sleep Apnea Denies: Asthma, Chronic Obstructive Pulmonary Disease (COPD) - WEARS 3LNC - 18-24 HOURS OUT OF THE DAY Neurological Medical History: Denies: Seizures Endocrine Medical History: Reports: Diabetes Mellitus Type 2 Denies: Diabetes Mellitus Type 1, Hyperthyroidism, Hypothyroidism GI Medical History: Reports: Gastroesophageal Reflux Disease - Distant history of same; no recent symptoms. Denies: Cirrhosis, Hepatitis Musculoskeltal Medical History: Reports: Arthritis Psychiatric Medical History: Reports: Depression Hematology: Denies: Anemia, Hemophilia, Sickle Cell Disease Infectious Medical History: Reports: Methicillin-Resistant Staph Aureus - Diag nosed August 2016. Denies: Clostridium Difficile Past Surgical History Past Surgical History: Reports: Orthopedic Surgery, Other - Wound debridement Denies: Hysterectomy Social History Smoking Status: Never Smoker Electronic Cigarette use?: No Frequency of Alcohol Use: None Hx Recreational Drug Use: No Drugs: None Hx Prescription Drug Abuse: No - Advance Directive Resuscitation Status: Full Code Family History Family History: CAD, Malignancy Parental Family History Reviewed: Yes Children Family History Reviewed: Yes Sibling(s) Family History Reviewed.: Yes Medication/Allergy Home Medications: Atorvastatin Calcium [Lipitor 10 mg Tablet] 10 mg PO QHS 10/31/17 Gabapentin [Neurontin 400 mg Capsule] 800 mg PO Q12 10/31/17 Lisinopril/Hydrochlorothiazide [Zestoretic 20-25 mg Tablet] 1 tab PO DAILY 10/31/17 Sertraline HCl [Zoloft] 100 mg PO DAILY 10/31/17 Furosemide [Lasix 40 mg Tablet] 40 mg PO QAM 06/05/18 Hydrocodone Bit/Acetaminophen [Hydrocodon-Acetaminophn 10-325] 1 each PO Q8HP [place] N 06/05/18 Ergocalciferol (Vitamin D2) [Drisdol 50,000 unit (1.25MG) Capsule] 50,000 unit PO MO@1000 03/25/19 Levothyroxine Sodium [Synthroid 0.075 mg Tablet] 0.075 mg PO Q6AM 03/25/19 Linagliptin [Tradjenta] 5 mg PO DAILY 03/25/19 Allergies/Adverse Reactions: adhesive [Adhesive] Allergy (Verified 03/24/19 17:10) No Known Drug Allergies Allergy (Verified 03/24/19 17:10) Review of Systems Constitutional: PRESENT: chills, weakness Eyes: ABSENT: visual disturbances Ears: ABSENT: hearing changes Nose, Mouth, and Throat: ABSENT: as per HPI, headache(s), mouth pain, sore throat, vertigo, other Cardiovascular: PRESENT: dyspnea on exertion Respiratory: PRESENT: dyspnea Gastrointestinal: ABSENT: abdominal pain, constipation, diarrhea, hematemesis, hematochezia, nausea, vomiting Genitourinary: ABSENT: dysuria, hematuria Musculoskeletal: PRESENT: deformity - related to prior trauma to leg and multiple joints involvement with arthritis Integumentary: ABSENT: rash, wounds Neurological: ABSENT: abnormal gait, abnormal speech, confusion, dizziness, focal weakness, syncope Psychiatric: ABSENT: anxiety, depression, homidical ideation, suicidal ideation Endocrine: ABSENT: cold intolerance, heat intolerance, polydipsia, polyuria Hematologic/Lymphatic: ABSENT: easy bleeding, easy bruising, lymphadenopathy Allergic/Immunologic: ABSENT: seasonal rhinorrhea Physical Exam Vital Signs: Temp Pulse Resp BP Pulse Ox 97.4 F 73 20 121/48 L 99 03/25/19 16:07 03/25/19 16:07 03/25/19 16:07 03/25/19 16:07 03/25/19 16:07 Intake & Output 03/24/19 03/25/19 03/26/19 06:59 06:59 06:59 Intake Total 50 Output Total 50 500 Balance 0 -500 Weight 154.9 kg General appearance: PRESENT: morbidly obese Head exam: PRESENT: atraumatic, normocephalic Eye exam: PRESENT: conjunctiva pink, EOMI, PERRLA. ABSENT: scleral icterus Ear exam: PRESENT: normal external ear exam Mouth exam: PRESENT: moist Throat exam: ABSENT: post pharyngeal erythema, tonsillar erythema, tonsillar exudate, tonsillogmegaly, other Neck exam: PRESENT: full ROM. ABSENT: carotid bruit, JVD, lymphadenopathy, thyromegaly Respiratory exam: PRESENT: decreased breath sounds - bilateral lung bases Cardiovascular exam: PRESENT: RRR. ABSENT: diastolic murmur, rubs, systolic murmur Vascular exam: ABSENT: pallor GI/Abdominal exam: PRESENT: normal bowel sounds, soft. ABSENT: distended, guarding, mass, organolmegaly, rebound, tenderness Rectal exam: PRESENT: deferred Extremities exam: PRESENT: pedal edema - chronic changes in lower legs Musculoskeletal exam: PRESENT: deformity, tenderness - both legs to palpation, right >>left with muscle atrophy Neurological exam: PRESENT: alert, awake, oriented to person, oriented to place, oriented to time, oriented to situation, CN II-XII grossly intact. ABSENT: motor sensory deficit Psychiatric exam: PRESENT: appropriate affect, normal mood. ABSENT: homicidal ideation, suicidal ideation Skin exam: PRESENT: dry, erythema - lower legs suggestive of chronic cellulitis changes, rash - skin fungal infection in skin folds., warm Results Laboratory Results: 03/25/19 06:31 03/25/19 06:31 03/24/19 03/24/19 03/25/19 23:00 23:00 06:31 WBC 8.7 RBC 3.74 Hgb 10.1 L Hct 30.7 L MCV 82 MCH 27.0 MCHC 32.8 RDW 16.2 H Plt Count 206 Seg Neutrophils % 47.9 Carbonic Acid 1.21 HCO3/H2CO3 Ratio 17:1 ABG pH 7.33 L ABG pCO2 40.2 ABG pO2 111.9 H ABG HCO3 20.8 ABG O2 Saturation 97.8 ABG Base Excess -4.8 FiO2 3L Sodium Potassium Chloride Carbon Dioxide Anion Gap BUN Creatinine Est GFR ( Amer) Glucose Calcium Urine Color YELLOW Urine Appearance CLEAR Urine pH 5.0 Ur Specific [place] 1.015 Urine Protein NEGATIVE Urine Glucose (UA) NEGATIVE Urine Ketones NEGATIVE Urine Blood NEGATIVE Urine RBC (Auto) 1 03/25/19 06:31 WBC RBC Hgb Hct MCV MCH MCHC RDW Plt Count Seg Neutrophils % Carbonic Acid HCO3/H2CO3 Ratio ABG pH ABG pCO2 ABG pO2 ABG HCO3 ABG O2 Saturation ABG Base Excess FiO2 Sodium 143.9 Potassium 4.6 Chloride 109 H Carbon Dioxide 26 Anion Gap 9 BUN 38 H Creatinine 1.99 H Est GFR ( Amer) 30 L Glucose 100 Calcium 9.0 Urine Color Urine Appearance Urine pH Ur Specific [place] Urine Protein Urine Glucose (UA) Urine Ketones Urine Blood Urine RBC (Auto) Impressions: Tibia/Fibula X-Ray 03/24/19 19:18 IMPRESSION: No fracture identified. Chest X-Ray 03/24/19 20:26 IMPRESSION: Cardiomegaly. Possible increased opacity at the left lung base. copyright 2011 [employer]- All Rights Reserved Assessment & Plan - Diagnosis (1) Lobar pneumonia, unspecified organism Is this a current diagnosis for this admission?: Yes Plan: See covering admitting attending physician orders for details about care plan. (2) ADRIANA (acute kidney injury) Is this a current diagnosis for this admission?: Yes Plan: See covering admitting attending physician orders for details about care plan. (3) Hyperkalemia Is this a current diagnosis for this admission?: Yes Plan: See covering admitting attending physician orders for details about care plan. (4) CKD (chronic kidney disease) stage 4, GFR 15-29 ml/min Is this a current diagnosis for this admission?: Yes Plan: See covering admitting attending physician orders for details about care plan. (5) Obesity hypoventilation syndrome Is this a current diagnosis for this admission?: Yes Plan: See covering admitting attending physician orders for details about care plan. (6) Obstructive sleep apnea Is this a current diagnosis for this admission?: Yes Plan: See covering admitting attending physician orders for details about care plan. (7) Diabetes mellitus type 2 in obese Is this a current diagnosis for this admission?: Yes Plan: See covering admitting attending physician orders for details about care plan. (8) Hypertension Qualifiers: Hypertension type: essential hypertension Qualified Code(s): I10 - Essential (primary) hypertension Is this a current diagnosis for this admission?: Yes Plan: See covering admitting attending physician orders for details about care plan. (9) Hyperlipidemia Qualifiers: Hyperlipidemia type: unspecified Qualified Code(s): E78.5 - Hyperlipidemia, unspecified Is this a current diagnosis for this admission?: Yes Plan: See covering admitting attending physician orders for details about care plan. (10) Hypothyroidism Qualifiers: Hypothyroidism type: unspecified Qualified Code(s): E03.9 - Hypothyroidism, unspecified Is this a current diagnosis for this admission?: Yes Plan: See covering admitting attending physician orders for details about care plan. (11) Venous stasis ulcers of both lower extremities Is this a current diagnosis for this admission?: Yes Plan: See covering admitting attending physician orders for details about care plan. (12) Depression Qualifiers: Depression Type: unspecified Qualified Code(s): F32.9 - Major depressive disorder, single episode, unspecified Is this a current diagnosis for this admission?: Yes Plan: See covering admitting attending physician orders for details about care plan. - Time Time Spent: 50 to 70 Minutes Medications reviewed and adjusted accordingly: Yes Anticipated discharge: SNF Within: Other - Inpatient Certification Based on my medical assessment, after consideration of the patient's comorbidities, presenting symptoms, or acuity I expect that the services needed warrant INPATIENT care.: Yes I certify that my determination is in accordance with my understanding of Medicare's requirements for reasonable and necessary INPATIENT services [42 CFR 412.3e].: Yes Medical Necessity: Significant Comorbidiites Make Outpatient Treatment Too Risky, Need Close Monitoring Due to Risk of Patient Decompensation, Need For Continuous Telemetry Monitoring, Need for Nebulizer Therapy and Monitoring of Response, Need for IV Antibiotics, Risk of Complication if Not Cared For in Hospital, Risk of Diagnosis Which Will Require Inpatient Eval/Care/Monitoring Post Hospital Care: D/C or Transfer Summary - Plan Summary Plan Summary: See covering admitting attending physician orders for details about care plan.
[2019-03-25] MEDS ORDERED: NORMAL SALINE 1000 ML 1,000 ML IV PRN (19:24)
[2019-03-25] MEDS: GABAPENTIN 400 MG CAPSULE PO SCH (21:22)
[2019-03-25] MEDS: ATORVASTATIN CALCIUM 10 MG TABLET PO SCH (21:23)
[2019-03-26] MEDS: HYDROCODONE/ACETAMINOPHEN 10-325 MG TABLET PO PRN (03:52)
[2019-03-26] MEDS: LEVOTHYROXINE SODIUM 0.075 MG TABLET PO SCH (05:15)
[2019-03-26 06:04] LABS: ABSOLUTE EOSINOPHILS # (AUTO) 0.2 10^3/uL (0.0-0.6); ABSOLUTE LYMPHOCYTES (AUTO) 3.1 10^3/uL (0.5-4.7); ABSOLUTE MONOCYTES (AUTO) 0.4 10^3/uL (0.1-1.4); ABSOLUTE NEUT (AUTO) 3.6 10^3/uL (1.7-8.2); BASOPHILS % (AUTO) 0.4 % (0-2); EOSINOPHILS % (AUTO) 3.2 % (0-6); HEMATOCRIT 30.3 % (36.0-47.0); HEMOGLOBIN 9.9 g/dL (12.0-15.5); LYMPHOCYTES % (AUTO) 42.7 % (13-45); MEAN CORPUSCULAR HEMOGLOBIN 27.3 pg (27.0-33.4); MEAN CORPUSCULAR HGB CONC 32.8 g/dL (32.0-36.0); MEAN CORPUSCULAR VOLUME 83 fl (80-97); MONOCYTES % (AUTO) 5.6 % (3-13); PLATELET COUNT 200 10^3/uL (150-450); RED BLOOD COUNT 3.65 10^6/uL (3.72-5.28); RED CELL DISTRIBUTION WIDTH 16.4 % (11.5-14.0); SEGMENTED NEUTROPHILS % (AUTO) 48.1 % (42-78); TOTAL CELLS COUNTED % (AUTO) 100 %; WHITE BLOOD COUNT 7.4 10^3/uL (4.0-10.5)
[2019-03-26 06:23] LABS: ALBUMIN 3.6 g/dL (3.5-5.0); ALKALINE PHOSPHATASE 72 U/L (38-126); ANION GAP 7 (5-19); ASPARTATE AMINO TRANSFERASE 16 U/L (14-36); BILIRUBIN,DIRECT 0.1 mg/dL (0.0-0.4); BILIRUBIN,TOTAL 0.3 mg/dL (0.2-1.3); BLOOD UREA NITROGEN 31 mg/dL (7-20); CALCIUM 8.9 mg/dL (8.4-10.2); CARBON DIOXIDE 28 mmol/L (22-30); CHLORIDE 107 mmol/L (98-107); CHOLESTEROL 186.41 mg/dL (0-200); GLUCOSE 93 mg/dL (75-110); PHOSPHORUS 4.6 mg/dL (2.5-4.5); POTASSIUM 5.1 mmol/L (3.6-5.0); TOTAL PROTEIN 6.7 g/dL (6.3-8.2); TRIGLYCERIDES 194 mg/dL (<150)
[2019-03-26 06:33] LABS: DIRECT LDL 106 mg/dL (<100)
[2019-03-26 06:37] LABS: VLDL CHOLESTEROL 38.8 mg/dL (10-31)
[2019-03-26 06:39] LABS: FREE T3 2.82 pg/mL (2.77-5.27); FREE T4 (FREE THYROXINE) 0.98 ng/dL (0.78-2.19)
[2019-03-26 06:52] LABS: THYROID STIMULATING HORMONE 2.31 uIU/mL (0.47-4.68)
[2019-03-26] MEDS: CEFTRIAXONE 1 GM/D5W RTU 1 GM/50 ML RTUPB IV SCH (07:33)
[2019-03-26] MEDS: INSULIN LISPRO 100 UNIT/ML 3 ML VIAL SUBCUT SCH ×4 (07:40→21:27)
[2019-03-26] MEDS: GABAPENTIN 400 MG CAPSULE PO SCH ×2 (09:28→21:22)
[2019-03-26] MEDS: SITAGLIPTIN PHOSPHATE 50 MG TABLET PO SCH (09:29)
[2019-03-26] MEDS: SERTRALINE HCL 50 MG TABLET PO SCH (09:29)
[2019-03-26] MEDS: AMLODIPINE BESYLATE 5 MG TABLET PO SCH (09:59)
[2019-03-26] MEDS: NYSTATIN TOPICAL POWDER 15 GM TP SCH ×2 (10:36→17:24)
--- NOTE | 2019-03-26 20:07 | PDOC PROGRESS REPORT ---
Subjective Progress Note for:: 03/26/19 Subjective:: Patient seen by the bedside, she was admitted for pneumonia Reason For Visit: LOBAR PNUEMONIA,ADRIANA WITH HYPERKALEMIA Physical Exam Vital Signs: Temp Pulse Resp BP Pulse Ox 98.0 F 65 16 109/49 L 100 03/26/19 16:39 03/26/19 16:39 03/26/19 16:39 03/26/19 16:39 03/26/19 16:39 Intake & Output 03/25/19 03/26/19 03/27/19 06:59 06:59 06:59 Intake Total 50 600 750 Output Total 50 1000 Balance 0 -400 750 Weight 154.9 kg 158 kg General appearance: PRESENT: no acute distress Eye exam: PRESENT: PERRLA Respiratory exam: PRESENT: clear to auscultation kurt Cardiovascular exam: PRESENT: +S1, +S2 GI/Abdominal exam: PRESENT: soft Neurological exam: PRESENT: alert Results Laboratory Results: 03/26/19 05:14 03/26/19 05:14 03/26/19 03/26/19 03/26/19 05:14 05:14 05:14 WBC 7.4 RBC 3.65 L Hgb 9.9 L Hct 30.3 L MCV 83 MCH 27.3 MCHC 32.8 RDW 16.4 H Plt Count 200 Seg Neutrophils % 48.1 Sodium 142.1 Potassium 5.1 H Chloride 107 Carbon Dioxide 28 Anion Gap 7 BUN 31 H Creatinine 1.60 H Est GFR ( Amer) 38 L Glucose 93 Calcium 8.9 Phosphorus 4.6 H Magnesium 2.2 Total Bilirubin 0.3 AST 16 Alkaline Phosphatase 72 Total Protein 6.7 Albumin 3.6 Triglycerides 194 H Cholesterol 186.41 LDL Cholesterol Direct 106 H VLDL Cholesterol 38.8 H HDL Cholesterol 25 L TSH 2.31 Free T4 0.98 Free T3 pg/mL 2.82 03/24/19 23:00 Leg - Left Gram Stain - Final Impressions: Tibia/Fibula X-Ray 03/24/19 19:18 IMPRESSION: No fracture identified. Chest X-Ray 03/24/19 20:26 IMPRESSION: Cardiomegaly. Possible increased opacity at the left lung base. copyright 2010 [employer]- All Rights Reserved Assessment & Plan - Diagnosis (1) Lobar pneumonia, unspecified organism Is this a current diagnosis for this admission?: Yes Plan: Patient seen by the bedside, she will continue antibiotic as earlier prescribed (2) ADRIANA (acute kidney injury) Is this a current diagnosis for this admission?: Yes (3) Depression Qualifiers: Depression Type: unspecified Qualified Code(s): F32.9 - Major depressive disorder, single episode, unspecified Is this a current diagnosis for this admission?: Yes (4) Diabetes mellitus type 2 in obese Is this a current diagnosis for this admission?: Yes (5) Chronic kidney disease, stage 4 (severe) Is this a current diagnosis for this admission?: Yes - Time Time Spent with patient: 15-24 minutes
[2019-03-26] MEDS: ATORVASTATIN CALCIUM 10 MG TABLET PO SCH (21:22)
[2019-03-26] MEDS: AZITHROMYCIN 500 MG in DEXTROSE 5%-WATER 250 ML IV SCH (22:27)
[2019-03-27] MEDS: HYDROCODONE/ACETAMINOPHEN 10-325 MG TABLET PO PRN ×3 (00:20→16:32)
[2019-03-27] MEDS: LEVOTHYROXINE SODIUM 0.075 MG TABLET PO SCH (05:30)
[2019-03-27] MEDS: INSULIN LISPRO 100 UNIT/ML 3 ML VIAL SUBCUT SCH ×4 (08:07→21:32)
[2019-03-27] MEDS: CEFTRIAXONE 1 GM/D5W RTU 1 GM/50 ML RTUPB IV SCH (08:08)
--- NOTE | 2019-03-27 08:23 | XCELERA REPORT ---
[address] [address] Lower Extremity Venous Evaluation Procedure: Color flow and duplex imaging bilaterally of the veins of the lower extremities as well as the Common Femoral veins. Right Sided Venous Evaluation Study limitations due to high BMI, parts of Femoral and Peroneal veins not seen. Normal vessel filling wall to wall, compression and augmentation as well as Colour flow down to the infrageniculate veins. Left Sided Venous Evaluation Study limitations due to high BMI, parts of Femoral, Popliteal and Peroneal veins not seen. Normal vessel filling wall to wall, compression and augmentation as well as Colour flow down to the infrageniculate veins. Interpretation Summary No duplex evidence of DVT or obstruction in the bilateral lower extremities. Study limitations as noted. Name: SERINA LEE Age: 73 yrs Gender: Female : 1945 Patient Status: Inpatient Patient Location: [address] [place] [address] Study Date: 03/26/2019 07:50 PM Reason For Study: pain, swelling. r/o DVT. Bilateral. Ordering Physician: SHA OWUSU Performed By: Naheed Recio : SHA OWUSU > Gentry Mcmillan
[2019-03-27] MEDS: GABAPENTIN 400 MG CAPSULE PO SCH ×2 (10:37→21:33)
[2019-03-27] MEDS: SERTRALINE HCL 50 MG TABLET PO SCH (10:37)
[2019-03-27] MEDS: AMLODIPINE BESYLATE 5 MG TABLET PO SCH (10:37)
[2019-03-27] MEDS: SITAGLIPTIN PHOSPHATE 50 MG TABLET PO SCH (10:38)
[2019-03-27] MEDS: NYSTATIN TOPICAL POWDER 15 GM TP SCH ×2 (10:40→18:24)
[2019-03-27] MEDS: AZITHROMYCIN 500 MG in DEXTROSE 5%-WATER 250 ML IV SCH (21:33)
[2019-03-27] MEDS: ATORVASTATIN CALCIUM 10 MG TABLET PO SCH (21:33)
--- NOTE | 2019-03-27 21:51 | PDOC PROGRESS REPORT ---
Subjective Progress Note for:: 03/27/19 Subjective:: Patient seen by the bedside, she complain of pain in her right foot Reason For Visit: LOBAR PNUEMONIA,ADRIANA WITH HYPERKALEMIA Physical Exam Vital Signs: Temp Pulse Resp BP Pulse Ox 97.7 F 76 18 133/59 H 98 03/27/19 16:30 03/27/19 19:00 03/27/19 16:30 03/27/19 16:30 03/27/19 16:30 Intake & Output 03/26/19 03/27/19 03/28/19 06:59 06:59 06:59 Intake Total 600 1300 440 Output Total 1000 1000 900 Balance -400 300 -460 Weight 158 kg 157 kg General appearance: PRESENT: no acute distress Eye exam: PRESENT: PERRLA Respiratory exam: PRESENT: clear to auscultation kurt Cardiovascular exam: PRESENT: +S1, +S2 GI/Abdominal exam: PRESENT: soft Neurological exam: PRESENT: alert Results Laboratory Results: 03/26/19 05:14 03/26/19 05:14 03/24/19 23:00 Leg - Left Gram Stain - Final 03/24/19 23:00 Leg - Left Wound Culture - Final Staphylococcus Aureus Skin Nancy Impressions: Tibia/Fibula X-Ray 03/24/19 19:18 IMPRESSION: No fracture identified. Chest X-Ray 03/24/19 20:26 IMPRESSION: Cardiomegaly. Possible increased opacity at the left lung base. copyright 2011 [email or web address]- All Rights Reserved Assessment & Plan - Diagnosis (1) Lobar pneumonia, unspecified organism Is this a current diagnosis for this admission?: Yes (2) ADRIANA (acute kidney injury) Is this a current diagnosis for this admission?: Yes (3) Depression Qualifiers: Depression Type: unspecified Qualified Code(s): F32.9 - Major depressive d isorder, single episode, unspecified Is this a current diagnosis for this admission?: Yes (4) Diabetes mellitus type 2 in obese Is this a current diagnosis for this admission?: Yes (5) Chronic kidney disease, stage 4 (severe) Is this a current diagnosis for this admission?: Yes - Time Time Spent with patient: 25-34 minutes
[2019-03-28] MEDS: LEVOTHYROXINE SODIUM 0.075 MG TABLET PO SCH (06:39)
[2019-03-28] MEDS: HYDROCODONE/ACETAMINOPHEN 10-325 MG TABLET PO PRN ×2 (06:42→14:49)
[2019-03-28] MEDS: SERTRALINE HCL 50 MG TABLET PO SCH (09:12)
[2019-03-28] MEDS: SITAGLIPTIN PHOSPHATE 50 MG TABLET PO SCH (09:12)
[2019-03-28] MEDS: INSULIN LISPRO 100 UNIT/ML 3 ML VIAL SUBCUT SCH ×4 (09:13→21:41)
[2019-03-28] MEDS: GABAPENTIN 400 MG CAPSULE PO SCH ×2 (09:13→21:47)
[2019-03-28] MEDS: CEFTRIAXONE 1 GM/D5W RTU 1 GM/50 ML RTUPB IV SCH (09:13)
[2019-03-28] MEDS: NYSTATIN TOPICAL POWDER 15 GM TP SCH ×2 (09:14→17:14)
[2019-03-28] MEDS: AMLODIPINE BESYLATE 5 MG TABLET PO SCH (09:28)
[2019-03-28 15:08] LABS: ALBUMIN 3.8 g/dL (3.5-5.0); ALKALINE PHOSPHATASE 65 U/L (38-126); ANION GAP 8 (5-19); ASPARTATE AMINO TRANSFERASE 14 U/L (14-36); BILIRUBIN,DIRECT 0.2 mg/dL (0.0-0.4); BILIRUBIN,TOTAL 0.4 mg/dL (0.2-1.3); BLOOD UREA NITROGEN 25 mg/dL (7-20); CALCIUM 9.1 mg/dL (8.4-10.2); CARBON DIOXIDE 30 mmol/L (22-30); CHLORIDE 102 mmol/L (98-107); GLUCOSE 111 mg/dL (75-110); POTASSIUM 4.9 mmol/L (3.6-5.0)
[2019-03-28] MEDS: HYDROMORPHONE HCL INJ/PF 2 MG/ML AMPULE IV PRN ×2 (16:13→21:47)
--- NOTE | 2019-03-28 18:23 | PDOC PROGRESS REPORT ---
Subjective Progress Note for:: 03/28/19 Subjective:: She complains of bilateral feet pain Reason For Visit: LOBAR PNUEMONIA,ADRIANA WITH HYPERKALEMIA Physical Exam Vital Signs: Temp Pulse Resp BP Pulse Ox 99.2 F 83 18 123/59 L 94 03/28/19 11:06 03/28/19 16:25 03/28/19 11:06 03/28/19 11:06 03/28/19 16:25 Intake & Output 03/27/19 03/28/19 03/29/19 06:59 06:59 06:59 Intake Total 1300 1150 524 Output Total 1000 1900 700 Balance 300 -750 -176 Weight 157 kg 156 kg General appearance: PRESENT: no acute distress Eye exam: PRESENT: PERRLA Respiratory exam: PRESENT: clear to auscultation kurt Cardiovascular exam: PRESENT: +S1, +S2 GI/Abdominal exam: PRESENT: soft Neurological exam: PRESENT: alert Results Laboratory Results: 03/26/19 05:14 03/28/19 14:40 03/28/19 14:40 Sodium 140.2 Potassium 4.9 Chloride 102 Carbon Dioxide 30 Anion Gap 8 BUN 25 H Creatinine 1.39 H Est GFR ( Amer) 45 L Glucose 111 H Calcium 9.1 Total Bilirubin 0.4 AST 14 Alkaline Phosphatase 65 Total Protein 7.0 Albumin 3.8 03/24/19 23:00 Leg - Left Gram Stain - Final 03/24/19 23:00 Leg - Left Wound Culture - Final Staphylococcus Aureus Skin Nancy Impressions: Tibia/Fibula X-Ray 03/24/19 19:18 IMPRESSION: No fracture identified. Chest X-Ray 03/24/19 20:26 IMPRESSION: Cardiomegaly. Possible increased opacity at the left lung base. copyright 2010 [email or web address]- All Rights Reserved Assessment & Plan - Diagnosis (1) Lobar pneumonia, unspecified organism Is this a current diagnosis for this admission?: Yes (2) ADRIANA (acute kidney injury) Is this a current diagnosis for this admission?: Yes (3) Depression Qualifiers: Depression Type: unspecified Qualified Code(s): F32.9 - Major depressive di sorder, single episode, unspecified Is this a current diagnosis for this admission?: Yes (4) Diabetes mellitus type 2 in obese Is this a current diagnosis for this admission?: Yes (5) Chronic kidney disease, stage 4 (severe) Is this a current diagnosis for this admission?: Yes - Time Time Spent with patient: 15-24 minutes
[2019-03-28] MEDS: AZITHROMYCIN 250 MG TABLET PO SCH (21:47)
[2019-03-28] MEDS: ATORVASTATIN CALCIUM 10 MG TABLET PO SCH (21:47)
[2019-03-29] MEDS: HYDROCODONE/ACETAMINOPHEN 10-325 MG TABLET PO PRN (00:16)
[2019-03-29] MEDS: HYDROMORPHONE HCL INJ/PF 2 MG/ML AMPULE IV PRN ×3 (04:46→21:01)
[2019-03-29] MEDS: LEVOTHYROXINE SODIUM 0.075 MG TABLET PO SCH (05:04)
[2019-03-29] MEDS: CEFTRIAXONE 1 GM/D5W RTU 1 GM/50 ML RTUPB IV SCH (08:10)
[2019-03-29] MEDS: INSULIN LISPRO 100 UNIT/ML 3 ML VIAL SUBCUT SCH ×4 (08:50→21:24)
[2019-03-29] MEDS: AMLODIPINE BESYLATE 5 MG TABLET PO SCH (09:34)
[2019-03-29] MEDS: SITAGLIPTIN PHOSPHATE 50 MG TABLET PO SCH (09:34)
[2019-03-29] MEDS: NYSTATIN TOPICAL POWDER 15 GM TP SCH ×2 (09:35→18:33)
[2019-03-29] MEDS: GABAPENTIN 400 MG CAPSULE PO SCH ×2 (09:35→21:01)
[2019-03-29] MEDS: SERTRALINE HCL 50 MG TABLET PO SCH (09:35)
[2019-03-29] MEDS: AZITHROMYCIN 250 MG TABLET PO SCH (21:01)
[2019-03-29] MEDS: ATORVASTATIN CALCIUM 10 MG TABLET PO SCH (21:01)
--- NOTE | 2019-03-29 21:04 | PDOC PROGRESS REPORT ---
Subjective Progress Note for:: 03/29/19 Subjective:: Seen by the bedside awaiting placement in skilled nursing Reason For Visit: LOBAR PNUEMONIA,ADRIANA WITH HYPERKALEMIA Physical Exam Vital Signs: Temp Pulse Resp BP Pulse Ox 99.6 F 82 20 120/50 L 97 03/29/19 19:30 03/29/19 19:30 03/29/19 19:30 03/29/19 19:30 03/29/19 19:30 Intake & Output 03/28/19 03/29/19 03/30/19 06:59 06:59 06:59 Intake Total 1150 1764 921 Output Total 1900 1100 300 Balance -750 664 621 Weight 156 kg 156.3 kg General appearance: PRESENT: no acute distress Eye exam: PRESENT: PERRLA Respiratory exam: PRESENT: clear to auscultation kurt Cardiovascular exam: PRESENT: +S1, +S2 GI/Abdominal exam: PRESENT: soft Neurological exam: PRESENT: alert Results Laboratory Results: 03/26/19 05:14 03/28/19 14:40 Impressions: Tibia/Fibula X-Ray 03/24/19 19:18 IMPRESSION: No fracture identified. Chest X-Ray 03/24/19 20:26 IMPRESSION: Cardiomegaly. Possible increased opacity at the left lung base. copyright 2011 [employer]- All Rights Reserved Assessment & Plan - Diagnosis (1) Lobar pneumonia, unspecified organism Is this a current diagnosis for this admission?: Yes (2) ADRIANA (acute kidney injury) Is this a current diagnosis for this admission?: Yes (3) Depression Qualifiers: Depression Type: unspecified Qualified Code(s): F32.9 - Major depressive disorder, single episode, unspecified Is this a current diagnosis for this admission?: Yes (4) Diabetes mellitus type 2 in obese Is this a current diagnosis for this admission?: Yes (5) Chronic kidney disease, stage 4 (severe) Is this a current diagnosis for this admission?: Yes - Time Time Spent with patient: Less than 15 minutes
[2019-03-30] MEDS: HYDROMORPHONE HCL INJ/PF 2 MG/ML AMPULE IV PRN ×2 (05:23→19:24)
[2019-03-30] MEDS: LEVOTHYROXINE SODIUM 0.075 MG TABLET PO SCH (05:24)
[2019-03-30] MEDS: INSULIN LISPRO 100 UNIT/ML 3 ML VIAL SUBCUT SCH ×4 (09:40→22:19)
[2019-03-30] MEDS: SITAGLIPTIN PHOSPHATE 50 MG TABLET PO SCH (09:42)
[2019-03-30] MEDS: CEFTRIAXONE 1 GM/D5W RTU 1 GM/50 ML RTUPB IV SCH (09:42)
[2019-03-30] MEDS: GABAPENTIN 400 MG CAPSULE PO SCH ×2 (09:42→21:23)
[2019-03-30] MEDS: AMLODIPINE BESYLATE 5 MG TABLET PO SCH (09:42)
[2019-03-30] MEDS: SERTRALINE HCL 50 MG TABLET PO SCH (09:42)
[2019-03-30] MEDS: NYSTATIN TOPICAL POWDER 15 GM TP SCH ×2 (13:47→18:37)
[2019-03-30] MEDS: HYDROCODONE/ACETAMINOPHEN 10-325 MG TABLET PO PRN (14:47)
[2019-03-30] MEDS: AZITHROMYCIN 250 MG TABLET PO SCH (21:23)
[2019-03-30] MEDS: ATORVASTATIN CALCIUM 10 MG TABLET PO SCH (21:23)
--- NOTE | 2019-03-30 21:49 | PDOC PROGRESS REPORT ---
Subjective Progress Note for:: 03/30/19 Subjective:: She continues to complain of leg pain Reason For Visit: LOBAR PNUEMONIA,ADRIANA WITH HYPERKALEMIA Physical Exam Vital Signs: Temp Pulse Resp BP Pulse Ox 99.0 F 84 17 121/47 L 96 03/30/19 16:21 03/30/19 19:00 03/30/19 16:21 03/30/19 16:21 03/30/19 16:21 Intake & Output 03/29/19 03/30/19 03/31/19 06:59 06:59 06:59 Intake Total 1764 1101 530 Output Total 1100 1750 200 Balance 664 -649 330 Weight 156.3 kg 155.7 kg Eye exam: PRESENT: PERRLA Respiratory exam: PRESENT: clear to auscultation kurt Cardiovascular exam: PRESENT: +S1, +S2 GI/Abdominal exam: PRESENT: soft Results Laboratory Results: 03/26/19 05:14 03/28/19 14:40 03/25/19 20:40 Blood Blood Culture - Final NO GROWTH IN 5 DAYS 03/25/19 20:15 Blood Blood Culture - Final NO GROWTH IN 5 DAYS 03/25/19 20:56 Sputum Gram Stain - Final 03/25/19 20:56 Sputum Sputum Culture - Final Staphylococcus Aureus Normal Nancy Impressions: Tibia/Fibula X-Ray 03/24/19 19:18 IMPRESSION: No fracture identified. Chest X-Ray 03/24/19 20:26 IMPRESSION: Cardiomegaly. Possible increased opacity at the left lung base. copyright 2011 [email or web address]- All Rights Reserved Assessment & Plan - Diagnosis (1) Lobar pneumonia, unspecified organism Is this a current diagnosis for this admission?: Yes (2) ADRIANA (acute kidney injury) Is this a current diagnosis for this admission?: Yes (3) Depression Qualifiers: Depression Type: unspecified Qualified Code(s): F32.9 - Major depressive disorder, single episode, unspecified Is this a current diagnosis for this admission?: Yes (4) Diabetes mellitus type 2 in obese Is this a current diagnosis for this admission?: Yes (5) Chronic kidney disease, stage 4 (severe) Is this a current diagnosis for this admission?: Yes - Time Time Spent with patient: 15-24 minutes
[2019-03-31] MEDS: HYDROMORPHONE HCL INJ/PF 2 MG/ML AMPULE IV PRN ×2 (03:48→21:02)
[2019-03-31] MEDS: LEVOTHYROXINE SODIUM 0.075 MG TABLET PO SCH (05:48)
[2019-03-31] MEDS: INSULIN LISPRO 100 UNIT/ML 3 ML VIAL SUBCUT SCH ×4 (09:55→22:07)
[2019-03-31] MEDS: SERTRALINE HCL 50 MG TABLET PO SCH (09:58)
[2019-03-31] MEDS: SITAGLIPTIN PHOSPHATE 50 MG TABLET PO SCH (09:58)
[2019-03-31] MEDS: AMLODIPINE BESYLATE 5 MG TABLET PO SCH (09:58)
[2019-03-31] MEDS: CEFTRIAXONE 1 GM/D5W RTU 1 GM/50 ML RTUPB IV SCH (09:58)
[2019-03-31] MEDS: GABAPENTIN 400 MG CAPSULE PO SCH ×2 (09:58→21:03)
--- NOTE | 2019-03-31 10:45 | PDOC PROGRESS REPORT ---
Subjective Progress Note for:: 03/31/19 Subjective:: Patient is still complaining of leg pain especially in the left leg Patient's denied any chest pain no short of breath Reason For Visit: LOBAR PNUEMONIA,ADRIANA WITH HYPERKALEMIA Physical Exam Vital Signs: Temp Pulse Resp BP Pulse Ox 97.6 F 73 21 H 127/52 H 93 03/31/19 08:54 03/31/19 08:54 03/31/19 08:54 03/31/19 08:54 03/31/19 08:54 Intake & Output 03/30/19 03/31/19 04/01/19 06:59 06:59 06:59 Intake Total 1101 780 Output Total 1750 1000 Balance -649 -220 Weight 155.7 kg 155.6 kg General appearance: PRESENT: no acute distress, well-developed, well-nourished Head exam: PRESENT: atraumatic, normocephalic Eye exam: PRESENT: conjunctiva pink, EOMI, PERRLA. ABSENT: scleral icterus Ear exam: PRESENT: normal external ear exam Mouth exam: PRESENT: moist, tongue midline Neck exam: PRESENT: full ROM. ABSENT: carotid bruit, JVD, lymphadenopathy, thyromegaly Respiratory exam: PRESENT: clear to auscultation kurt Cardiovascular exam: PRESENT: RRR. ABSENT: diastolic murmur, rubs, systolic murmur Pulses: PRESENT: normal dorsalis pedis pul, +2 pedal pulses bilateral Vascular exam: PRESENT: normal capillary refill GI/Abdominal exam: PRESENT: normal bowel sounds, soft. ABSENT: distended, guarding, mass, organolmegaly, rebound, tenderness Rectal exam: PRESENT: deferred Neurological exam: PRESENT: alert, awake, oriented to person, oriented to place, oriented to time, oriented to situation, CN II-XII grossly intact. ABSENT: motor sensory deficit Psychiatric exam: PRESENT: appropriate affect, normal mood. ABSENT: homicidal ideation, suicidal ideation Skin exam: PRESENT: dry, intact, warm. ABSENT: cyanosis, rash Results Laboratory Results: 03/26/19 05:14 03/28/19 14:40 03/25/19 20:40 Blood Blood Culture - Final NO GROWTH IN 5 DAYS 03/25/19 20:15 Blood Blood Culture - Final NO GROWTH IN 5 DAYS 03/25/19 20:56 Sputum Gram Stain - Final 03/25/19 20:56 Sputum Sputum Culture - Final Staphylococcus Aureus Normal Nancy Impressions: Tibia/Fibula X-Ray 03/24/19 19:18 IMPRESSION: No fracture identified. Chest X-Ray 03/24/19 20:26 IMPRESSION: Cardiomegaly. Possible increased opacity at the left lung base. copyright 2011 [employer]- All Rights Reserved Assessment & Plan - Diagnosis (1) Lobar pneumonia, unspecified organism Is this a current diagnosis for this admission?: Yes (2) Chronic kidney disease, stage 4 (severe) Is this a current diagnosis for this admission?: Yes (3) CHF (congestive heart failure) Qualifiers: Heart failure type: right-sided Heart failure chronicity: chronic Qualified Code(s): I50.812 - Chronic right heart failure Is this a current diagnosis for this admission?: Yes (4) Chronic venous hypertension (idiopathic) with ulcer and inflammation of bilateral lower extremity Is this a current diagnosis for this admission?: Yes (5) Hypertension Qualifiers: Hypertension type: essential hypertension Qualified Code(s): I10 - Essential (primary) hypertension Is this a current diagnosis for this admission?: Yes - Time Time Spent with patient: 15-24 minutes Level of Care: IMCU Medications reviewed and adjusted accordingly: Yes Anticipated discharge: Other Within: Other - Plan Summary Plan Summary: We will get the arterial Doppler for the leg pain to rule out underlying peripheral vascular disease
[2019-03-31] MEDS: NYSTATIN TOPICAL POWDER 15 GM TP SCH ×2 (15:49→21:02)
[2019-03-31] MEDS: HYDROCODONE/ACETAMINOPHEN 10-325 MG TABLET PO PRN (19:34)
[2019-03-31] MEDS: AZITHROMYCIN 250 MG TABLET PO SCH (21:03)
[2019-03-31] MEDS: ATORVASTATIN CALCIUM 10 MG TABLET PO SCH (21:03)
[2019-04-01] MEDS: LEVOTHYROXINE SODIUM 0.075 MG TABLET PO SCH (05:36)
[2019-04-01] MEDS: HYDROCODONE/ACETAMINOPHEN 10-325 MG TABLET PO PRN ×2 (05:36→15:13)
[2019-04-01 06:28] LABS: ABSOLUTE EOSINOPHILS # (AUTO) 0.2 10^3/uL (0.0-0.6); ABSOLUTE LYMPHOCYTES (AUTO) 3.1 10^3/uL (0.5-4.7); ABSOLUTE MONOCYTES (AUTO) 0.7 10^3/uL (0.1-1.4); ABSOLUTE NEUT (AUTO) 5.4 10^3/uL (1.7-8.2); BASOPHILS % (AUTO) 0.4 % (0-2); EOSINOPHILS % (AUTO) 2.3 % (0-6); HEMATOCRIT 28.5 % (36.0-47.0); HEMOGLOBIN 9.3 g/dL (12.0-15.5); LYMPHOCYTES % (AUTO) 32.7 % (13-45); MEAN CORPUSCULAR HEMOGLOBIN 26.9 pg (27.0-33.4); MEAN CORPUSCULAR HGB CONC 32.8 g/dL (32.0-36.0); MEAN CORPUSCULAR VOLUME 82 fl (80-97); PLATELET COUNT 199 10^3/uL (150-450); RED BLOOD COUNT 3.47 10^6/uL (3.72-5.28); RED CELL DISTRIBUTION WIDTH 15.4 % (11.5-14.0); SEGMENTED NEUTROPHILS % (AUTO) 57.6 % (42-78); TOTAL CELLS COUNTED % (AUTO) 100 %; WHITE BLOOD COUNT 9.4 10^3/uL (4.0-10.5)
[2019-04-01 06:43] LABS: ANION GAP 7 (5-19); BLOOD UREA NITROGEN 34 mg/dL (7-20); CARBON DIOXIDE 31 mmol/L (22-30); CHLORIDE 103 mmol/L (98-107); GLUCOSE 103 mg/dL (75-110); POTASSIUM 4.9 mmol/L (3.6-5.0)
[2019-04-01] MEDS: INSULIN LISPRO 100 UNIT/ML 3 ML VIAL SUBCUT SCH ×4 (09:23→21:21)
[2019-04-01] MEDS: CEFTRIAXONE 1 GM/D5W RTU 1 GM/50 ML RTUPB IV SCH (09:24)
[2019-04-01] MEDS: AMLODIPINE BESYLATE 5 MG TABLET PO SCH (09:25)
[2019-04-01] MEDS: SITAGLIPTIN PHOSPHATE 50 MG TABLET PO SCH (09:25)
[2019-04-01] MEDS: SERTRALINE HCL 50 MG TABLET PO SCH (09:25)
[2019-04-01] MEDS: GABAPENTIN 400 MG CAPSULE PO SCH ×2 (09:25→21:24)
--- NOTE | 2019-04-01 11:13 | PDOC PROGRESS REPORT ---
Subjective Progress Note for:: 04/01/19 Subjective:: Patient is currently doing well except ongoing leg problems specially on the left leg Other than that no other complaints Reason For Visit: LOBAR PNUEMONIA,ADRIANA WITH HYPERKALEMIA Physical Exam Vital Signs: Temp Pulse Resp BP Pulse Ox 98.1 F 76 16 140/72 H 97 04/01/19 07:21 04/01/19 07:21 04/01/19 07:21 04/01/19 07:21 04/01/19 07:21 Intake & Output 03/31/19 04/01/19 04/02/19 06:59 06:59 06:59 Intake Total 780 1172 Output Total 1000 300 Balance -220 872 Weight 155.6 kg 156.6 kg General appearance: PRESENT: no acute distress, well-developed, well-nourished Head exam: PRESENT: atraumatic, normocephalic Eye exam: PRESENT: conjunctiva pink, EOMI, PERRLA. ABSENT: scleral icterus Ear exam: PRESENT: normal external ear exam Mouth exam: PRESENT: moist, tongue midline Neck exam: PRESENT: full ROM. ABSENT: carotid bruit, JVD, lymphadenopathy, thyromegaly Respiratory exam: PRESENT: clear to auscultation kurt Cardiovascular exam: PRESENT: RRR. ABSENT: diastolic murmur, rubs, systolic murmur Vascular exam: PRESENT: normal capillary refill GI/Abdominal exam: PRESENT: normal bowel sounds, soft. ABSENT: distended, guarding, mass, organolmegaly, rebound, tenderness Rectal exam: PRESENT: deferred Extremities exam: PRESENT: pedal edema Additional comments: Left lower extremity mild cellulitis is present Neurological exam: PRESENT: alert, awake, oriented to person, oriented to place, oriented to time, oriented to situation, CN II-XII grossly intact. ABSENT: motor sensory deficit Psychiatric exam: PRESENT: appropriate affect, normal mood. ABSENT: homicidal ideation, suicidal ideation Skin exam: PRESENT: dry, intact, warm. ABSENT: cyanosis, rash Results Laboratory Results: 04/01/19 06:15 04/01/19 06:15 04/01/19 04/01/19 06:15 06:15 WBC 9.4 RBC 3.47 L Hgb 9.3 L Hct 28.5 L MCV 82 MCH 26.9 L MCHC 32.8 RDW 15.4 H Plt Count 199 Seg Neutrophils % 57.6 Sodium 140.6 Potassium 4.9 Chloride 103 Carbon Dioxide 31 H Anion Gap 7 BUN 34 H Creatinine 1.28 H Est GFR ( Amer) 49 L Glucose 103 Calcium 9.0 Impressions: Tibia/Fibula X-Ray 03/24/19 19:18 IMPRESSION: No fracture identified. Chest X-Ray 03/24/19 20:26 IMPRESSION: Cardiomegaly. Possible increased opacity at the left lung base. copyright 2010 [employer]- All Rights Reserved Assessment & Plan - Diagnosis (1) Lobar pneumonia, unspecified organism Is this a current diagnosis for this admission?: Yes (2) Chronic kidney disease, stage 4 (severe) Is this a current diagnosis for this admission?: Yes (3) CHF (congestive heart failure) Qualifiers: Heart failure type: right-sided Heart failure chronicity: chronic Qualified Code(s): I50.812 - Chronic right heart failure Is this a current diagnosis for this admission?: Yes (4) Chronic venous hypertension (idiopathic) with ulcer and inflammation of bilateral lower extremity Is this a current diagnosis for this admission?: Yes (5) Hypertension Qualifiers: Hypertension type: essential hypertension Qualified Code(s): I10 - Essential (primary) hypertension Is this a current diagnosis for this admission?: Yes - Time Time Spent with patient: 15-24 minutes Level of Care: IMCU Medications reviewed and adjusted accordingly: Yes Anticipated discharge: SNF Within: Other - Plan Summary Plan Summary: Continues to current IV antibiotics Physical therapy evaluations Schedule the arterial Doppler
[2019-04-01] MEDS: AZITHROMYCIN 250 MG TABLET PO SCH (21:24)
[2019-04-01] MEDS: ATORVASTATIN CALCIUM 10 MG TABLET PO SCH (21:24)
[2019-04-02] MEDS: LEVOTHYROXINE SODIUM 0.075 MG TABLET PO SCH (05:40)
[2019-04-02 06:39] LABS: ANION GAP 8 (5-19); BLOOD UREA NITROGEN 33 mg/dL (7-20); CALCIUM 9.4 mg/dL (8.4-10.2); CARBON DIOXIDE 31 mmol/L (22-30); CHLORIDE 104 mmol/L (98-107); GLUCOSE 92 mg/dL (75-110); POTASSIUM 5.5 mmol/L (3.6-5.0)
[2019-04-02] MEDS: INSULIN LISPRO 100 UNIT/ML 3 ML VIAL SUBCUT SCH ×4 (09:42→22:32)
[2019-04-02] MEDS: AMLODIPINE BESYLATE 5 MG TABLET PO SCH (09:48)
[2019-04-02] MEDS: SITAGLIPTIN PHOSPHATE 50 MG TABLET PO SCH (09:48)
[2019-04-02] MEDS: GABAPENTIN 400 MG CAPSULE PO SCH ×2 (09:48→22:26)
[2019-04-02] MEDS: SERTRALINE HCL 50 MG TABLET PO SCH (09:49)
--- NOTE | 2019-04-02 21:44 | PDOC PROGRESS REPORT ---
Subjective Progress Note for:: 04/02/19 Subjective:: Patient seen by the bedside, disposition is a challenge for this patient, discharge planning making arrangement for placement Reason For Visit: LOBAR PNUEMONIA,ADRIANA WITH HYPERKALEMIA Physical Exam Vital Signs: Temp Pulse Resp BP Pulse Ox 97.7 F 71 17 107/48 L 98 04/02/19 16:05 04/02/19 16:05 04/02/19 16:05 04/02/19 16:05 04/02/19 16:05 Intake & Output 04/01/19 04/02/19 04/03/19 06:59 06:59 06:59 Intake Total 1172 980 460 Output Total 300 Balance 872 980 460 Weight 156.6 kg 152.6 kg General appearance: PRESENT: no acute distress Eye exam: PRESENT: PERRLA Respiratory exam: PRESENT: clear to auscultation kurt Cardiovascular exam: PRESENT: +S1, +S2 Results Laboratory Results: 04/01/19 06:15 04/02/19 05:54 04/02/19 05:54 Sodium 143.3 Potassium 5.5 H Chloride 104 Carbon Dioxide 31 H Anion Gap 8 BUN 33 H Creatinine 1.28 H Est GFR ( Amer) 49 L Glucose 92 Calcium 9.4 Impressions: Tibia/Fibula X-Ray 03/24/19 19:18 IMPRESSION: No fracture identified. Chest X-Ray 03/24/19 20:26 IMPRESSION: Cardiomegaly. Possible increased opacity at the left lung base. copyright 2011 [employer]- All Rights Reserved Assessment & Plan - Diagnosis (1) Lobar pneumonia, unspecified organism Is this a current diagnosis for this admission?: Yes (2) ADRIANA (acute kidney injury) Is this a current diagnosis for this admission?: Yes (3) Depression Qualifiers: Depression Type: unspecified Qualified Code(s): F32.9 - Major depressive disorder, single episode, unspecified Is this a current diagnosis for this admission?: Yes (4) Diabetes mellitus type 2 in obese Is this a current diagnosis for this admission?: Yes (5) Chronic kidney disease, stage 4 (severe) Is this a current diagnosis for this admission?: Yes - Time Time Spent with patient: Less than 15 minutes
[2019-04-02] MEDS: ATORVASTATIN CALCIUM 10 MG TABLET PO SCH (22:26)
[2019-04-03] MEDS: LEVOTHYROXINE SODIUM 0.075 MG TABLET PO SCH (05:55)
[2019-04-03 06:54] LABS: ANION GAP 10 (5-19); BLOOD UREA NITROGEN 27 mg/dL (7-20); CALCIUM 9.2 mg/dL (8.4-10.2); CARBON DIOXIDE 32 mmol/L (22-30); CHLORIDE 101 mmol/L (98-107); GLUCOSE 93 mg/dL (75-110); POTASSIUM 5.1 mmol/L (3.6-5.0)
[2019-04-03] MEDS: INSULIN LISPRO 100 UNIT/ML 3 ML VIAL SUBCUT SCH ×4 (08:46→22:08)
[2019-04-03] MEDS: AMLODIPINE BESYLATE 5 MG TABLET PO SCH (09:18)
[2019-04-03] MEDS: SITAGLIPTIN PHOSPHATE 50 MG TABLET PO SCH (09:18)
[2019-04-03] MEDS: SERTRALINE HCL 50 MG TABLET PO SCH (09:18)
[2019-04-03] MEDS: GABAPENTIN 400 MG CAPSULE PO SCH ×2 (09:19→21:20)
--- NOTE | 2019-04-03 11:48 | XCELERA REPORT ---
[address] [address] Lower Extremity Arterial Evaluation Name: SERINA LEE Age: 73 yrs Gender: Female : 1945 Patient Status: Inpatient Patient Location: [address] [place] [address] Study Date: 04/02/2019 10:07 AM Procedure: A color flow and duplex scan of the lower extremity arteries was performed bilaterally with velocity and waveform anaylsis. 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 Biphasic with normal velocity in the Anterior Tibial and Dorsalis Pedis arteries. Ankle Brachial index not obtained. Left Side Arterial Evaluation Normal velocity and triphasic waveforms noted from the Common Femoral artery to the Anterior Tibial. Biphasic with normal velocity in the Posterior Tibial Artery. Ankle Brachial index not obtained. Interpretation Summary Mild hemodynamically significant lesions in the bilateral lower extremities, on duplex imaging, at rest. Duplex findings of mild disease int he infrageniculate vessels. : CHACE BOWDEN > Gentry Mcmillan
[2019-04-03] MEDS: ACETAMINOPHEN 325 MG TABLET PO PRN (21:19)
[2019-04-03] MEDS: ATORVASTATIN CALCIUM 10 MG TABLET PO SCH (21:20)
--- NOTE | 2019-04-03 22:33 | PDOC PROGRESS REPORT ---
Subjective Progress Note for:: 04/03/19 Subjective:: Patient was seen by the bedside, still awaiting placement Reason For Visit: LOBAR PNUEMONIA,ADRIANA WITH HYPERKALEMIA Physical Exam Vital Signs: Temp Pulse Resp BP Pulse Ox 98.4 F 78 16 137/67 H 99 04/03/19 20:56 04/03/19 20:56 04/03/19 20:56 04/03/19 20:56 04/03/19 20:56 Intake & Output 04/02/19 04/03/19 04/04/19 06:59 06:59 06:59 Intake Total 980 560 360 Balance 980 560 360 Weight 152.6 kg 154.9 kg General appearance: PRESENT: no acute distress Eye exam: PRESENT: PERRLA Respiratory exam: PRESENT: clear to auscultation kurt Cardiovascular exam: PRESENT: +S1, +S2 GI/Abdominal exam: PRESENT: soft Neurological exam: PRESENT: alert Results Laboratory Results: 04/01/19 06:15 04/03/19 05:53 04/03/19 05:53 Sodium 142.8 Potassium 5.1 H Chloride 101 Carbon Dioxide 32 H Anion Gap 10 BUN 27 H Creatinine 1.18 Est GFR ( Amer) 54 L Glucose 93 Calcium 9.2 Impressions: Tibia/Fibula X-Ray 03/24/19 19:18 IMPRESSION: No fracture identified. Chest X-Ray 03/24/19 20:26 IMPRESSION: Cardiomegaly. Possible increased opacity at the left lung base. copyright 2011 [employer]- All Rights Reserved Assessment & Plan - Diagnosis (1) Lobar pneumonia, unspecified organism Is this a current diagnosis for this admission?: Yes (2) ADRIANA (acute kidney injury) Is this a current diagnosis for this admission?: Yes (3) Depression Qualifiers: Depression Type: unspecified Qualified Code(s): F32.9 - Major depressive d isorder, single episode, unspecified Is this a current diagnosis for this admission?: Yes (4) Diabetes mellitus type 2 in obese Is this a current diagnosis for this admission?: Yes (5) Chronic kidney disease, stage 4 (severe) Is this a current diagnosis for this admission?: Yes - Time Time Spent with patient: 25-34 minutes
[2019-04-04] MEDS: LEVOTHYROXINE SODIUM 0.075 MG TABLET PO SCH (05:35)
[2019-04-04] MEDS: INSULIN LISPRO 100 UNIT/ML 3 ML VIAL SUBCUT SCH ×4 (08:15→21:55)
[2019-04-04] MEDS: SERTRALINE HCL 50 MG TABLET PO SCH (09:27)
[2019-04-04] MEDS: SITAGLIPTIN PHOSPHATE 50 MG TABLET PO SCH (09:27)
[2019-04-04] MEDS: AMLODIPINE BESYLATE 5 MG TABLET PO SCH (09:27)
[2019-04-04] MEDS: GABAPENTIN 400 MG CAPSULE PO SCH ×2 (09:27→21:51)
--- NOTE | 2019-04-04 17:04 | PDOC PROGRESS REPORT ---
Subjective Progress Note for:: 04/04/19 Subjective:: Patient is alert the problem now is disposition for this patient Reason For Visit: LOBAR PNUEMONIA,ADRIANA WITH HYPERKALEMIA Physical Exam Vital Signs: Temp Pulse Resp BP Pulse Ox 97.6 F 74 18 122/53 L 99 04/04/19 12:24 04/04/19 12:24 04/04/19 12:24 04/04/19 12:24 04/04/19 12:24 Intake & Output 04/03/19 04/04/19 04/05/19 06:59 06:59 06:59 Intake Total 560 460 236 Balance 560 460 236 Weight 154.9 kg 154.1 kg General appearance: PRESENT: no acute distress Eye exam: PRESENT: PERRLA Respiratory exam: PRESENT: clear to auscultation kurt Cardiovascular exam: PRESENT: +S1, +S2 GI/Abdominal exam: PRESENT: soft Results Laboratory Results: 04/01/19 06:15 04/03/19 05:53 Impressions: Tibia/Fibula X-Ray 03/24/19 19:18 IMPRESSION: No fracture identified. Chest X-Ray 03/24/19 20:26 IMPRESSION: Cardiomegaly. Possible increased opacity at the left lung base. copyright 2011 [employer]- All Rights Reserved Assessment & Plan - Diagnosis (1) Lobar pneumonia, unspecified organism Is this a current diagnosis for this admission?: Yes (2) ADRIANA (acute kidney injury) Is this a current diagnosis for this admission?: Yes (3) Depression Qualifiers: Depression Type: unspecified Qualified Code(s): F32.9 - Major depressive disorder, single episode, unspecified Is this a current diagnosis for this admission?: Yes (4) Diabetes mellitus type 2 in obese Is this a current diagnosis for this admission?: Yes (5) Chronic kidney disease, stage 4 (severe) Is this a current diagnosis for this admission?: Yes - Time Time Spent with patient: 15-24 minutes
[2019-04-04] MEDS: ATORVASTATIN CALCIUM 10 MG TABLET PO SCH (21:51)
[2019-04-05] MEDS: INSULIN LISPRO 100 UNIT/ML 3 ML VIAL SUBCUT SCH ×4 (10:48→21:47)
[2019-04-05] MEDS: GABAPENTIN 400 MG CAPSULE PO SCH ×2 (10:57→21:46)
[2019-04-05] MEDS: SERTRALINE HCL 50 MG TABLET PO SCH (10:57)
[2019-04-05] MEDS: AMLODIPINE BESYLATE 5 MG TABLET PO SCH (10:57)
[2019-04-05] MEDS: SITAGLIPTIN PHOSPHATE 50 MG TABLET PO SCH (10:57)
[2019-04-05] MEDS: LEVOTHYROXINE SODIUM 0.075 MG TABLET PO SCH (12:52)
[2019-04-05] MEDS: ATORVASTATIN CALCIUM 10 MG TABLET PO SCH (21:46)
--- NOTE | 2019-04-05 22:00 | PDOC PROGRESS REPORT ---
Subjective Progress Note for:: 04/05/19 Subjective:: Patient seen awaiting placement, discharge planning working on it Reason For Visit: ADRIANA, PNEUMONIA, HYPERKALEMIA Physical Exam Vital Signs: Temp Pulse Resp BP Pulse Ox 97.5 F 68 20 139/70 H 100 04/05/19 16:00 04/05/19 19:00 04/05/19 16:00 04/05/19 16:00 04/05/19 16:00 Intake & Output 04/04/19 04/05/19 04/06/19 06:59 06:59 06:59 Intake Total 460 1042 708 Balance 460 1042 708 Weight 154.1 kg 151.9 kg General appearance: PRESENT: no acute distress Eye exam: PRESENT: PERRLA Respiratory exam: PRESENT: clear to auscultation kurt Cardiovascular exam: PRESENT: +S1, +S2 GI/Abdominal exam: PRESENT: soft Neurological exam: PRESENT: alert Results Laboratory Results: 04/01/19 06:15 04/03/19 05:53 Impressions: Tibia/Fibula X-Ray 03/24/19 19:18 IMPRESSION: No fracture identified. Chest X-Ray 03/24/19 20:26 IMPRESSION: Cardiomegaly. Possible increased opacity at the left lung base. copyright 2011 [employer] [facility] [employer]- All Rights Reserved Assessment & Plan - Diagnosis (1) Lobar pneumonia, unspecified organism Is this a current diagnosis for this admission?: Yes (2) ADRIANA (acute kidney injury) Is this a current diagnosis for this admission?: Yes (3) Depression Qualifiers: Depression Type: unspecified Qualified Code(s): F32.9 - Major depressive disorder, single episode, unspecified Is this a current diagnosis for this admission?: Yes (4) Diabetes mellitus type 2 in obese Is this a current diagnosis for this admission?: Yes (5) Chronic kidney disease, stage 4 (severe) Is this a current diagnosis for this admission?: Yes - Time Time Spent with patient: 15-24 minutes
[2019-04-05 22:42] LABS: ABSOLUTE BASOPHILS # (AUTO) 0.1 10^3/uL (0.0-0.2); ABSOLUTE EOSINOPHILS # (AUTO) 0.3 10^3/uL (0.0-0.6); ABSOLUTE LYMPHOCYTES (AUTO) 2.7 10^3/uL (0.5-4.7); ABSOLUTE MONOCYTES (AUTO) 0.5 10^3/uL (0.1-1.4); ABSOLUTE NEUT (AUTO) 5.6 10^3/uL (1.7-8.2); BASOPHILS % (AUTO) 0.7 % (0-2); EOSINOPHILS % (AUTO) 3.1 % (0-6); LYMPHOCYTES % (AUTO) 29.8 % (13-45); MEAN CORPUSCULAR HEMOGLOBIN 26.7 pg (27.0-33.4); MEAN CORPUSCULAR HGB CONC 32.3 g/dL (32.0-36.0); MEAN CORPUSCULAR VOLUME 83 fl (80-97); MONOCYTES % (AUTO) 5.7 % (3-13); PLATELET COUNT 252 10^3/uL (150-450); RED BLOOD COUNT 3.75 10^6/uL (3.72-5.28); RED CELL DISTRIBUTION WIDTH 15.2 % (11.5-14.0); SEGMENTED NEUTROPHILS % (AUTO) 60.7 % (42-78); TOTAL CELLS COUNTED % (AUTO) 100 %; WHITE BLOOD COUNT 9.2 10^3/uL (4.0-10.5)
[2019-04-05 22:52] LABS: ALBUMIN 3.7 g/dL (3.5-5.0); ALKALINE PHOSPHATASE 65 U/L (38-126); ANION GAP 10 (5-19); ASPARTATE AMINO TRANSFERASE 16 U/L (14-36); BILIRUBIN,DIRECT 0.1 mg/dL (0.0-0.4); BILIRUBIN,TOTAL 0.3 mg/dL (0.2-1.3); BLOOD UREA NITROGEN 32 mg/dL (7-20); CALCIUM 9.3 mg/dL (8.4-10.2); CARBON DIOXIDE 32 mmol/L (22-30); CHLORIDE 99 mmol/L (98-107); GLUCOSE 140 mg/dL (75-110); TOTAL PROTEIN 7.1 g/dL (6.3-8.2)
[2019-04-06 04:42] LABS: ABSOLUTE BASOPHILS # (AUTO) 0.1 10^3/uL (0.0-0.2); ABSOLUTE EOSINOPHILS # (AUTO) 0.3 10^3/uL (0.0-0.6); ABSOLUTE LYMPHOCYTES (AUTO) 3.2 10^3/uL (0.5-4.7); ABSOLUTE MONOCYTES (AUTO) 0.5 10^3/uL (0.1-1.4); ABSOLUTE NEUT (AUTO) 5.8 10^3/uL (1.7-8.2); BASOPHILS % (AUTO) 0.6 % (0-2); EOSINOPHILS % (AUTO) 3.1 % (0-6); HEMATOCRIT 29.7 % (36.0-47.0); HEMOGLOBIN 9.8 g/dL (12.0-15.5); LYMPHOCYTES % (AUTO) 32.4 % (13-45); MEAN CORPUSCULAR HEMOGLOBIN 27.1 pg (27.0-33.4); MEAN CORPUSCULAR HGB CONC 32.9 g/dL (32.0-36.0); MEAN CORPUSCULAR VOLUME 82 fl (80-97); MONOCYTES % (AUTO) 5.3 % (3-13); PLATELET COUNT 262 10^3/uL (150-450); RED BLOOD COUNT 3.61 10^6/uL (3.72-5.28); RED CELL DISTRIBUTION WIDTH 15.4 % (11.5-14.0); SEGMENTED NEUTROPHILS % (AUTO) 58.6 % (42-78); TOTAL CELLS COUNTED % (AUTO) 100 %; WHITE BLOOD COUNT 9.9 10^3/uL (4.0-10.5)
[2019-04-06 05:00] LABS: ALBUMIN 3.6 g/dL (3.5-5.0); ALKALINE PHOSPHATASE 71 U/L (38-126); ANION GAP 7 (5-19); ASPARTATE AMINO TRANSFERASE 15 U/L (14-36); BILIRUBIN,DIRECT 0.2 mg/dL (0.0-0.4); BILIRUBIN,TOTAL 0.2 mg/dL (0.2-1.3); BLOOD UREA NITROGEN 32 mg/dL (7-20); CALCIUM 9.1 mg/dL (8.4-10.2); CARBON DIOXIDE 35 mmol/L (22-30); CHLORIDE 101 mmol/L (98-107); GLUCOSE 116 mg/dL (75-110); POTASSIUM 5.5 mmol/L (3.6-5.0)
[2019-04-06] MEDS: LEVOTHYROXINE SODIUM 0.075 MG TABLET PO SCH (05:22)
[2019-04-06] MEDS: INSULIN LISPRO 100 UNIT/ML 3 ML VIAL SUBCUT SCH ×4 (07:40→21:24)
[2019-04-06] MEDS: SITAGLIPTIN PHOSPHATE 50 MG TABLET PO SCH (09:59)
[2019-04-06] MEDS: SERTRALINE HCL 50 MG TABLET PO SCH (09:59)
[2019-04-06] MEDS: AMLODIPINE BESYLATE 5 MG TABLET PO SCH (09:59)
[2019-04-06] MEDS: GABAPENTIN 400 MG CAPSULE PO SCH ×2 (09:59→21:24)
[2019-04-06] MEDS: ACETAMINOPHEN 325 MG TABLET PO PRN (16:50)
[2019-04-06] MEDS: ATORVASTATIN CALCIUM 10 MG TABLET PO SCH (21:24)
--- NOTE | 2019-04-07 00:04 | PDOC PROGRESS REPORT ---
Subjective Progress Note for:: 04/06/19 Subjective:: Patient seen awaiting placement, discharge planning working on it Reason For Visit: ADRIANA, PNEUMONIA, HYPERKALEMIA Physical Exam Vital Signs: Temp Pulse Resp BP Pulse Ox 98.4 F 78 17 143/73 H 95 04/06/19 20:09 04/06/19 20:09 04/06/19 20:09 04/06/19 20:09 04/06/19 20:09 Intake & Output 04/05/19 04/06/19 04/07/19 06:59 06:59 06:59 Intake Total 1042 1348 496 Output Total 670 1300 Balance 1042 678 -804 Weight 151.9 kg 152.3 kg 152.3 kg General appearance: PRESENT: no acute distress Eye exam: PRESENT: PERRLA Respiratory exam: PRESENT: clear to auscultation kurt Cardiovascular exam: PRESENT: +S1, +S2 GI/Abdominal exam: PRESENT: soft Results Laboratory Results: 04/06/19 03:38 04/06/19 03:38 04/06/19 04/06/19 03:38 03:38 WBC 9.9 RBC 3.61 L Hgb 9.8 L Hct 29.7 L MCV 82 MCH 27.1 MCHC 32.9 RDW 15.4 H Plt Count 262 Seg Neutrophils % 58.6 Sodium 142.7 Potassium 5.5 H Chloride 101 Carbon Dioxide 35 H Anion Gap 7 BUN 32 H Creatinine 1.36 H Est GFR ( Amer) 46 L Glucose 116 H Calcium 9.1 Total Bilirubin 0.2 AST 15 Alkaline Phosphatase 71 Total Protein 7.0 Albumin 3.6 Impressions: Tibia/Fibula X-Ray 03/24/19 19:18 IMPRESSION: No fracture identified. Chest X-Ray 03/24/19 20:26 IMPRESSION: Cardiomegaly. Possible increased opacity at the left lung base. copyright 2011 [employer] [facility]- All Rights Reserved Assessment & Plan - Diagnosis (1) Lobar pneumonia, unspecified organism Is this a current diagnosis for this admission?: Yes (2) ADRIANA (acute kidney injury) Is this a current diagnosis for this admission?: Yes (3) Depression Qualifiers: Depression Type: unspecified Qualified Code(s): F32.9 - Major depressive disorder, single episode, unspecified Is this a current diagnosis for this admission?: Yes (4) Diabetes mellitus type 2 in obese Is this a current diagnosis for this admission?: Yes (5) Chronic kidney disease, stage 4 (severe) Is this a current diagnosis for this admission?: Yes - Time Time Spent with patient: 15-24 minutes
[2019-04-07] MEDS: LEVOTHYROXINE SODIUM 0.075 MG TABLET PO SCH (06:19)
[2019-04-07] MEDS: INSULIN LISPRO 100 UNIT/ML 3 ML VIAL SUBCUT SCH ×4 (08:39→22:25)
[2019-04-07] MEDS: SERTRALINE HCL 50 MG TABLET PO SCH (09:21)
[2019-04-07] MEDS: GABAPENTIN 400 MG CAPSULE PO SCH ×2 (09:21→22:17)
[2019-04-07] MEDS: SITAGLIPTIN PHOSPHATE 50 MG TABLET PO SCH (09:21)
[2019-04-07] MEDS: AMLODIPINE BESYLATE 5 MG TABLET PO SCH (09:21)
[2019-04-07] MEDS: ACETAMINOPHEN 325 MG TABLET PO PRN ×2 (13:32→20:30)
--- NOTE | 2019-04-07 20:57 | PDOC PROGRESS REPORT ---
Subjective Progress Note for:: 04/07/19 Subjective:: Patient seen awaiting placement, discharge planning working on it Reason For Visit: ADRIANA, PNEUMONIA, HYPERKALEMIA Physical Exam Vital Signs: Temp Pulse Resp BP Pulse Ox 98.7 F 78 18 140/60 H 99 04/07/19 15:32 04/07/19 19:00 04/07/19 15:32 04/07/19 15:32 04/07/19 15:32 Intake & Output 04/06/19 04/07/19 04/08/19 06:59 06:59 06:59 Intake Total 1348 976 472 Output Total 670 2150 100 Balance 678 -1174 372 Weight 152.3 kg 153.1 kg General appearance: PRESENT: no acute distress Eye exam: PRESENT: PERRLA Respiratory exam: PRESENT: clear to auscultation kurt Cardiovascular exam: PRESENT: +S1, +S2 GI/Abdominal exam: PRESENT: soft Results Laboratory Results: 04/06/19 03:38 04/06/19 03:38 Impressions: Tibia/Fibula X-Ray 03/24/19 19:18 IMPRESSION: No fracture identified. Chest X-Ray 03/24/19 20:26 IMPRESSION: Cardiomegaly. Possible increased opacity at the left lung base. copyright 2011 [email or web address] [facility] [employer]- All Rights Reserved Assessment & Plan - Diagnosis (1) Lobar pneumonia, unspecified organism Is this a current diagnosis for this admission?: Yes (2) ADRIANA (acute kidney injury) Is this a current diagnosis for this admission?: Yes (3) Depression Qualifiers: Depression Type: unspecified Qualified Code(s): F32.9 - Major depressive disorder, single episode, unspecified Is this a current diagnosis for this admission?: Yes (4) Diabetes mellitus type 2 in obese Is this a current diagnosis for this admission?: Yes (5) Chronic kidney disease, stage 4 (severe) Is this a current diagnosis for this admission?: Yes - Time Time Spent with patient: 15-24 minutes
[2019-04-07] MEDS: ATORVASTATIN CALCIUM 10 MG TABLET PO SCH (22:17)
[2019-04-08] MEDS: LEVOTHYROXINE SODIUM 0.075 MG TABLET PO SCH (05:15)
[2019-04-08] MEDS: INSULIN LISPRO 100 UNIT/ML 3 ML VIAL SUBCUT SCH ×4 (07:59→22:08)
[2019-04-08] MEDS: ACETAMINOPHEN 325 MG TABLET PO PRN ×2 (10:41→22:59)
[2019-04-08] MEDS: SERTRALINE HCL 50 MG TABLET PO SCH (10:42)
[2019-04-08] MEDS: SITAGLIPTIN PHOSPHATE 50 MG TABLET PO SCH (10:42)
[2019-04-08] MEDS: GABAPENTIN 400 MG CAPSULE PO SCH ×2 (10:42→22:09)
[2019-04-08] MEDS: AMLODIPINE BESYLATE 5 MG TABLET PO SCH (10:42)
--- NOTE | 2019-04-08 15:49 | PDOC PROGRESS REPORT ---
Subjective Progress Note for:: 04/08/19 Subjective:: Patient seen by the bedside no new complaints Reason For Visit: ADRIANA, PNEUMONIA, HYPERKALEMIA Physical Exam Vital Signs: Temp Pulse Resp BP Pulse Ox 98.3 F 78 19 114/47 L 95 04/08/19 12:00 04/08/19 14:00 04/08/19 12:00 04/08/19 12:00 04/08/19 12:00 Intake & Output 04/07/19 04/08/19 04/09/19 06:59 06:59 06:59 Intake Total 976 992 236 Output Total 2150 150 450 Balance -1174 842 -214 Weight 153.1 kg 156.2 kg General appearance: PRESENT: no acute distress Eye exam: PRESENT: PERRLA Respiratory exam: PRESENT: clear to auscultation kurt Cardiovascular exam: PRESENT: +S1, +S2 GI/Abdominal exam: PRESENT: soft Results Laboratory Results: 04/06/19 03:38 04/06/19 03:38 Impressions: Tibia/Fibula X-Ray 03/24/19 19:18 IMPRESSION: No fracture identified. Chest X-Ray 03/24/19 20:26 IMPRESSION: Cardiomegaly. Possible increased opacity at the left lung base. copyright 2011 [employer] [facility] [employer]- All Rights Reserved Assessment & Plan - Diagnosis (1) Lobar pneumonia, unspecified organism Is this a current diagnosis for this admission?: Yes (2) ADRIANA (acute kidney injury) Is this a current diagnosis for this admission?: Yes (3) Depression Qualifiers: Depression Type: unspecified Qualified Code(s): F32.9 - Major depressive disorder, single episode, unspecified Is this a current diagnosis for this admission?: Yes (4) Diabetes mellitus type 2 in obese Is this a current diagnosis for this admission?: Yes (5) Chronic kidney disease, stage 4 (severe) Is this a current diagnosis for this admission?: Yes - Time Time Spent with patient: 15-24 minutes
[2019-04-08] MEDS: ATORVASTATIN CALCIUM 10 MG TABLET PO SCH (22:09)
[2019-04-09] MEDS: LEVOTHYROXINE SODIUM 0.075 MG TABLET PO SCH (05:33)
[2019-04-09] MEDS: INSULIN LISPRO 100 UNIT/ML 3 ML VIAL SUBCUT SCH ×3 (09:32→16:51)
[2019-04-09] MEDS: AMLODIPINE BESYLATE 5 MG TABLET PO SCH (09:33)
[2019-04-09] MEDS: SITAGLIPTIN PHOSPHATE 50 MG TABLET PO SCH (09:33)
[2019-04-09] MEDS: GABAPENTIN 400 MG CAPSULE PO SCH (09:33)
[2019-04-09] MEDS: SERTRALINE HCL 50 MG TABLET PO SCH (09:33)
[2019-04-09] MEDS: ACETAMINOPHEN 325 MG TABLET PO PRN (14:16)
--- NOTE | 2019-04-09 14:17 | PDOC TRANSFER SUMMARY ---
Impression - Admit/DC Date/PCP Admission Date/Primary Care Provider: 03/25/19 01:42 CRUZ HUERTA MD Discharge Date: 04/09/19 - Discharge Diagnosis (1) Lobar pneumonia, unspecified organism Is this a current diagnosis for this admission?: Yes (2) ADRIANA (acute kidney injury) Is this a current diagnosis for this admission?: Yes (3) Depression Is this a current diagnosis for this admission?: Yes (4) Diabetes mellitus type 2 in obese Is this a current diagnosis for this admission?: Yes (5) Chronic kidney disease, stage 4 (severe) Is this a current diagnosis for this admission?: Yes - Additional Information Resuscitation Status: Full Code Referrals: Hood HOOVER MD [ACTIVE STAFF] - Follow up as needed Home Medications: Atorvastatin Calcium [Lipitor 10 mg Tablet] 10 mg PO QHS 10/31/17 Gabapentin [Neurontin 400 mg Capsule] 800 mg PO Q12 10/31/17 Lisinopril/Hydrochlorothiazide [Zestoretic 20-25 mg Tablet] 1 tab PO DAILY 10/31/17 Sertraline HCl [Zoloft] 100 mg PO DAILY 10/31/17 Furosemide [Lasix 40 mg Tablet] 40 mg PO QAM 06/05/18 Hydrocodone Bit/Acetaminophen [Hydrocodon-Acetaminophn 10-325] 1 each PO Q8HP PRN 06/05/18 Ergocalciferol (Vitamin D2) [Drisdol 50,000 unit (1.25MG) Capsule] 50,000 unit PO MO@1000 03/25/19 Levothyroxine Sodium [Synthroid 0.075 mg Tablet] 0.075 mg PO Q6AM 03/25/19 Linagliptin [Tradjenta] 5 mg PO DAILY 03/25/19 History of Present Illiness History of Present Illness: SERINA LEE is a 73 year old female, She has a history of type 2 diabetes ashtyn eugene, diabetes related nephropathy, morbid obesity, she was admitted because of pneumonia, acute kidney injury, and difficulty taking care of self Hospital Course Hospital Course: She has underlining chronic kidney disease stage III, she was treated with IV antibiotic for pneumonia she also had fluid therapy to correct prerenal azotemia. Patient hospital stay was prolonged because of delay in getting placement for patient for rehabilitation, the discharge planning was able to get placement with the patient today. She had bilateral feet pain due to maggie ropathy from diabetes mellitus, patient is morbidly obese. She did not cooperate consistently with physical therapy in the hospital. The plan is to discharge her to assisted for physical therapy and probably long-term stay Physical Exam Vital Signs: Temp Pulse Resp BP Pulse Ox 98.7 F 75 16 135/61 H 95 04/09/19 11:05 04/09/19 11:05 04/09/19 11:05 04/09/19 11:05 04/09/19 11:05 Intake & Output 04/08/19 04/09/19 04/10/19 06:59 06:59 06:59 Intake Total 992 1398 Output Total 150 1500 Balance 842 -102 Weight 156.2 kg 153.9 kg General appearance: PRESENT: no acute distress, morbidly obese Eye exam: PRESENT: PERRLA Respiratory exam: PRESENT: clear to auscultation kurt Cardiovascular exam: PRESENT: +S1, +S2 GI/Abdominal exam: PRESENT: soft Neurological exam: PRESENT: alert, CN II-XII grossly intact Results Laboratory Results: WBC 9.9 10^3/uL (4.0-10.5) 04/06/19 03:38 RBC 3.61 10^6/uL (3.72-5.28) L 04/06/19 03:38 Hgb 9.8 g/dL (12.0-15.5) L 04/06/19 03:38 Hct 29.7 % (36.0-47.0) L 04/06/19 03:38 MCV 82 fl (80-97) 04/06/19 03:38 MCH 27.1 pg (27.0-33.4) 04/06/19 03:38 MCHC 32.9 g/dL (32.0-36.0) 04/06/19 03:38 RDW 15.4 % (11.5-14.0) H 04/06/19 03:38 Plt Count 262 10^3/uL (150-450) 04/06/19 03:38 Lymph % (Auto) 32.4 % (13-45) 04/06/19 03:38 Rich % (Auto) 5.3 % (3-13) 04/06/19 03:38 Eos % (Auto) 3.1 % (0-6) 04/06/19 03:38 Baso % (Auto) 0.6 % (0-2) 04/06/19 03:38 Absolute Neuts (auto) 5.8 10^3/uL (1.7-8.2) 04/06/19 03:38 Absolute Lymphs (auto) 3.2 10^3/uL (0.5-4.7) 04/06/19 03:38 Absolute Monos (auto) 0.5 10^3/uL (0.1-1.4) 04/06/19 03:38 Absolute Eos (auto) 0.3 10^3/uL (0.0-0.6) 04/06/19 03:38 Absolute Basos (auto) 0.1 10^3/uL (0.0-0.2) 04/06/19 03:38 Seg Neutrophils % 58.6 % (42-78) 04/06/19 03:38 Carbonic Acid 1.21 mmol/L (1.05-1.35) 03/24/19 23:00 HCO3/H2CO3 Ratio 17:1 03/24/19 23:00 ABG pH 7.33 (7.35-7.45) L 03/24/19 23:00 ABG pCO2 40.2 mmHg (35-45) 03/24/19 23:00 ABG pO2 111.9 mmHg (80-100) H 03/24/19 23:00 ABG HCO3 20.8 mmol/L (20-24) 03/24/19 23:00 ABG Total CO2 22.0 mmol/L (21-25) 03/24/19 23:00 ABG O2 Saturation 97.8 % (94-98) 03/24/19 23:00 ABG Base Excess -4.8 mmol/L 03/24/19 23:00 FiO2 3L 03/24/19 23:00 Sodium 142.7 mmol/L (137-145) 04/06/19 03:38 Potassium 5.5 mmol/L (3.6-5.0) H 04/06/19 03:38 Chloride 101 mmol/L (98-107) 04/06/19 03:38 Carbon Dioxide 35 mmol/L (22-30) H 04/06/19 03:38 Anion Gap 7 (5-19) 04/06/19 03:38 BUN 32 mg/dL (7-20) H 04/06/19 03:38 Creatinine 1.36 mg/dL (0.52-1.25) H 04/06/19 03:38 Est GFR ( Amer) 46 (>60) L 04/06/19 03:38 Est GFR (MDRD) Non-Af 38 (>60) L 04/06/19 03:38 Glucose 116 mg/dL (75-110) H 04/06/19 03:38 POC Glucose 89 mg/dL (70-110) 04/09/19 11:50 Hemoglobin A1c % 5.8 % (4.7-6.0) 03/26/19 05:14 Calcium 9.1 mg/dL (8.4-10.2) 04/06/19 03:38 Phosphorus 4.6 mg/dL (2.5-4.5) H 03/26/19 05:14 Magnesium 2.2 mg/dL (1.6-2.3) 03/26/19 05:14 Total Bilirubin 0.2 mg/dL (0.2-1.3) 04/06/19 03:38 Direct Bilirubin 0.2 mg/dL (0.0-0.4) 04/06/19 03:38 Neonat Total Bilirubin Not Reportable 04/06/19 03:38 Neonat Direct Bilirubin Not Reportable 04/06/19 03:38 Neonat Indirect Bili Not Reportable 04/06/19 03:38 AST 15 U/L (14-36) 04/06/19 03:38 ALT 12 U/L (<35) 04/06/19 03:38 Alkaline Phosphatase 71 U/L (38-126) 04/06/19 03:38 Total Protein 7.0 g/dL (6.3-8.2) 04/06/19 03:38 Albumin 3.6 g/dL (3.5-5.0) 04/06/19 03:38 Triglycerides 194 mg/dL (<150) H 03/26/19 05:14 Cholesterol 186.41 mg/dL (0-200) 03/26/19 05:14 LDL Cholesterol Direct 106 mg/dL (<100) H 03/26/19 05:14 VLDL Cholesterol 38.8 mg/dL (10-31) H 03/26/19 05:14 HDL Cholesterol 25 mg/dL (>40) L 03/26/19 05:14 TSH 2.31 uIU/mL (0.47-4.68) 03/26/19 05:14 Free T4 0.98 ng/dL (0.78-2.19) 03/26/19 05:14 Free T3 pg/mL 2.82 pg/mL (2.77-5.27) 03/26/19 05:14 Urine Color YELLOW 03/24/19 23:00 Urine Appearance CLEAR 03/24/19 23:00 Urine pH 5.0 (5.0-9.0) 03/24/19 23:00 Ur Specific [place] 1.015 03/24/19 23:00 Urine Protein NEGATIVE mg/dL (NEGATIVE) 03/24/19 23:00 Urine Glucose (UA) NEGATIVE mg/dL (NEGATIVE) 03/24/19 23:00 Urine Ketones NEGATIVE mg/dL (NEGATIVE) 03/24/19 23:00 Urine Blood NEGATIVE (NEGATIVE) 03/24/19 23:00 Urine Nitrite (Reflex) NEGATIVE (NEGATIVE) 03/24/19 23:00 Urine Bilirubin NEGATIVE (NEGATIVE) 03/24/19 23:00 Urine Urobilinogen NEGATIVE mg/dL (<2.0) 03/24/19 23:00 Leukocyte Esterase Rfl NEGATIVE (NEGATIVE) 03/24/19 23:00 Urine RBC (Auto) 1 /HPF 03/24/19 23:00 U Hyaline Cast (Auto) 3 /LPF 03/24/19 23:00 Urine WBC (Reflex) 2 /HPF 03/24/19 23:00 Urine Mucus (Auto) RARE /LPF 03/24/19 23:00 Urine Ascorbic Acid NEGATIVE (NEGATIVE) 03/24/19 23:00 Impressions: Tibia/Fibula X-Ray 03/24/19 19:18 IMPRESSION: No fracture identified. Chest X-Ray 03/24/19 20:26 IMPRESSION: Cardiomegaly. Possible increased opacity at the left lung base. copyright 2010 [email or web address]- All Rights Reserved Stroke Is this a Stroke Patient?: No Acute Heart Failure - Is this a Heart Failure Patient?: No
[2019-04-09 15:42] VITALS: BP 135/56
== END 2019-04-09 17:14 | DRG 682 ==
LOC: ER 16:50 → EH 03-25 01:42 → 3S 03-25 03:36 → 5 04-04 20:43
PROVIDERS: ADMIT Internal Medicine; ATTEND Internal Medicine
DX: N17.9 Acute kidney failure, unspecified (principal); J18.9 Pneumonia, unspecified organism; I13.0 Hypertensive heart and chronic kidney disease with heart failure and stage 1 through stage 4 chronic kidney disease, or unspecified chronic kidney disease; L03.116 Cellulitis of left lower limb; L03.115 Cellulitis of right lower limb; L97.819 Non-pressure chronic ulcer of other part of right lower leg with unspecified severity; L97.829 Non-pressure chronic ulcer of other part of left lower leg with unspecified severity; E66.2 Morbid (severe) obesity with alveolar hypoventilation; Z68.43 Body mass index [BMI] 50.0-59.9, adult; N18.3 Chronic kidney disease, stage 3 (moderate); E87.5 Hyperkalemia; E11.22 Type 2 diabetes mellitus with diabetic chronic kidney disease; E78.5 Hyperlipidemia, unspecified; E03.9 Hypothyroidism, unspecified; I87.8 Other specified disorders of veins; I83.018 Varicose veins of right lower extremity with ulcer other part of lower leg; I83.028 Varicose veins of left lower extremity with ulcer other part of lower leg; I50.812 Chronic right heart failure; F32.9 Major depressive disorder, single episode, unspecified
CPT/HCPCS: 36415; 71045; 80048; 80053; 80061; 81001; 82803; 82962; 83036; 83735; 84100; 84439; 84443; 84481; 85025; 87040; 87070; 87077; 87186; 87205; 93005; 93010; 93925; 93970; 94660; 99291; J0456; J0696; J1170; J3490; J7030; J7060